=== PATIENT | female | born 1945 | race Caucasian/White ===

== ENCOUNTER → 2017-03-03 | Outpatient (CLI) | payer MEDICARE ==
--- NOTE | 2017-03-04 07:11 | MM ---
Reason for exam: screening (asymptomatic). Last mammogram was performed 1 year ago. History: Patient is postmenopausal. Family history of breast cancer in maternal aunt and premenopausal breast cancer in maternal aunt. Took hormonal contraceptives for 20 years beginning at age 20. Took estrogen for 11 years. Took progesterone for 11 years. Physical Findings: A clinical breast exam by your physician is recommended on an annual basis and results should be correlated with mammographic findings. MG 3D Screening Mammo W/Cad Bilateral CC and MLO view(s) were taken. Prior study comparison: February 24, 2016, bilateral MG 3d screening mammo w/cad. January 27, 2015, bilateral MG screening mammo w CAD. There are scattered fibroglandular densities. Finding: Architectural distortion in the left breast, approximately 10cm from nipple. New finding since February 24, 2016 and January 27, 2015. ASSESSMENT: Incomplete: need additional imaging evaluation, BI-RAD 0 RECOMMENDATION: Special view mammogram of the left breast. If lesion persists on supplemental views, image directed ultrasound is recommended. [facility] will attempt to contact patient to return for supplemental views and ultrasound if indicated.
== END | disposition home or self-care (01) ==
LOC: RADMAMWWP 13:10
PROVIDERS: ATTEND Obstetrics & Gynecology Obstetrics
DX: Z12.31 Encounter for screening mammogram for malignant neoplasm of breast (principal)
CPT/HCPCS: 77063; G0202

== ENCOUNTER → 2017-03-08 | Outpatient (CLI) | payer MEDICARE ==
--- NOTE | 2017-03-08 10:07 | MM ---
Reason for exam: additional evaluation requested from abnormal screening. Last mammogram was performed less than 1 month ago. History: Patient is postmenopausal. Family history of breast cancer in maternal aunt and premenopausal breast cancer in maternal aunt. Took hormonal contraceptives for 20 years beginning at age 20. Took estrogen for 11 years. Took progesterone for 11 years. Physical Findings: Nurse did not find any significant physical abnormalities on exam. MG 3D Work Up W/Cad LT ML, spot compression MLO, and spot compression CC view(s) were taken of the left breast. Prior study comparison: March 03, 2017, bilateral MG 3d screening mammo w/cad. February 24, 2016, bilateral MG 3d screening mammo w/cad. There are scattered fibroglandular densities. There is no discrete abnormality. These results were verbally communicated with the patient and result sheet given to the patient on 03/08/17. ASSESSMENT: Probably benign, BI-RAD 3 RECOMMENDATION: Follow-up diagnostic mammogram of the left breast in 6 months.
== END | disposition home or self-care (01) ==
LOC: RADMAMWWP 08:56
PROVIDERS: ATTEND Obstetrics & Gynecology Obstetrics
DX: R92.8 Other abnormal and inconclusive findings on diagnostic imaging of breast (principal)
CPT/HCPCS: G0206; G0279

== ENCOUNTER → 2017-03-14 | Outpatient (CLI) | payer MEDICARE | END | disposition home or self-care (01) | LOC: RADECHMAIN 12:02 | PROVIDERS: ATTEND Family Medicine | DX: I48.91 Unspecified atrial fibrillation (principal); I48.92 Unspecified atrial flutter; I47.1 Supraventricular tachycardia | CPT/HCPCS: 93225; 93226 ==

== ENCOUNTER → 2017-03-23 | Outpatient (CLI) | payer MEDICARE ==
--- NOTE | 2017-03-23 13:53 | BD ---
EXAMINATION TYPE: MG DEXA axial skeleton. DATE OF EXAM: 03/23/2017 COMPARISON: Previous study dated 01/27/2015. CLINICAL HISTORY: Postmenopausal female Height: 5 FT 6 1/2 IN Weight: 194NO FRAX RISK QUESTIONS: Alcohol (3 or more units per day): NO Family History (Parent hip fracture): NO Glucocorticoids (More than 3mos): YES (Ex: prednisone, prednisolone, methylprednisolone, dexamethasone, and hydrocortisone). History of Fracture in Adulthood: YES Secondary Osteoporosis: 1. Type 1 Diabetes: NO 2. Hyperthyroidism: NO 3. Menopause before 45: YES 4. Malnutrition: NO 5. Chronic liver disease: NO Rheumatoid Arthritis: YES Current Tobacco Use: NO RISK FACTORS HISTORY OF: Family History of Osteoporosis: YES Active: NO Postmenopausal woman: UTERUS REMOVED AGE AGE 43 OVARIES REMOVED SEVERAL YEARS LATER MEDICATIONS: Thyroid Medications: YES Which medication: SYNTHROID How Lon YEARS Additional Medications: WARFARIN, ALLUPURINOL, LEVOTHYROXINE, LYRICA,LIALDA, CALCITEUIL, LOPERAMIDE, FLUTICASONE,TYLENOL, METOPROLOL, OMEPRAZOLE, LEVOFLOXACIN, CLOBETASOL PROPIONATE, KLEFLEX, LEVSIN/SL/ HYOSCYAMINE Additional History: AFTER THE FACT SHE MENTIONED SHE HAS HAD SURG ON LUMBAR 3-4 EXAM MEASUREMENTS: Bone mineral densitometry was performed using the [employer] System. Bone mineral density as measured about the Lumbar spine is: ----- L1-L4(G/cm2): 1.231 T Score Values are as follows: ----- L2: -0.3 ----- L3: 1.6 ----- L4: 0.3 ----- L1-L4: 0.4 SPINE NOT DONE IN THE PAST Bone mineral density about the R hip (g/cm2): 0.737 Bone mineral density about the L hip (g/cm2): 0.690 T Score values are as follows: -----R Neck: -2.2 -----L Neck: -2.5 -----R Total: -2.1 -----L Total: -1.5 Bone mineral density has: Decreased -6.6% since study of: 2014 IMPRESSION: OSTEOPENIA. NOTE: T-SCORE=SD OF THE YOUNG ADULT MEAN.
== END | disposition home or self-care (01) ==
LOC: RADBDWWP 12:35
PROVIDERS: ATTEND Family Medicine
DX: M85.80 Other specified disorders of bone density and structure, unspecified site (principal); Z78.0 Asymptomatic menopausal state
CPT/HCPCS: 77080

== ENCOUNTER → 2018-03-10 | Outpatient (CLI) | payer MEDICARE ==
--- NOTE | 2018-03-13 14:27 | MM ---
Reason for exam: screening (asymptomatic). Last mammogram was performed 6 months ago. History: Patient is postmenopausal. Family history of breast cancer in maternal aunt and premenopausal breast cancer in maternal aunt. Took hormonal contraceptives for 20 years beginning at age 20. Took estrogen for 11 years. Took progesterone for 11 years. Physical Findings: A clinical breast exam by your physician is recommended on an annual basis and results should be correlated with mammographic findings. MG 3D Screening Mammo W/Cad Bilateral CC and MLO view(s) were taken. Prior study comparison: September 14, 2017, left breast MG 3d diag mammo w/cad LT. March 08, 2017, left breast MG 3d work up w/cad LT. The breast tissue is heterogeneously dense. This may lower the sensitivity of mammography. Finding: There are typically benign dystrophic, round, diffuse/scattered and grouped calcifications in both breasts. There is a chronic nodularity in the right breast. ASSESSMENT: Benign, BI-RAD 2 RECOMMENDATION: Routine screening mammogram of both breasts in 1 year.
== END | disposition home or self-care (01) ==
LOC: RADMAMWWP 13:08
PROVIDERS: ATTEND Obstetrics & Gynecology Obstetrics
DX: Z12.31 Encounter for screening mammogram for malignant neoplasm of breast (principal)
CPT/HCPCS: 77063; 77067

== ENCOUNTER → 2018-08-04 | Outpatient (CLI) | payer MEDICARE ==
[2018-08-04 13:23] LABS: HCT 40.4 % (34.0-46.0); HGB 12.8 gm/dL (11.4-16.0); Hypochromasia Slight; MCH 31.7 pg (25.0-35.0); MCHC 31.7 g/dL (31.0-37.0); Macrocytosis Slight; Mean Platelet Volume 8.8; Platelet Count 120 k/uL (150-450); RBC 4.04 m/uL (3.80-5.40); RDW 15.2 % (11.5-15.5); WBC 4.6 k/uL (3.8-10.6)
[2018-08-04 13:31] LABS: Appearance,Urine Clear (Clear); Bilirubin,Urine Negative (Negative); Blood,Urine Negative (Negative); Color,Urine Yellow; Glucose,Urine (UA) Negative (Negative); Ketones,Urine Negative (Negative); Leukocyte Esterase,Urine Small (Negative); Mucus,Urine Rare /hpf; Nitrite,Urine Negative (Negative); PH, Urine 5.5 (5.0-8.0); Protein,Urine Negative (Negative); RBC,Urine 1 /hpf (0-5); Specific Gravity,Urine 1.009 (1.001-1.035); Squamous Epithelial Cell,Urine 2 /hpf (0-4); Transitional Epi Cells,Urine <1 /hpf (0-1); Urobilinogen,Urine <2.0 mg/dL (<2.0); WBC,Urine 1 /hpf (0-5)
[2018-08-04 13:32] LABS: Albumin 3.8 g/dL (3.5-5.0); Calcium 9.2 mg/dL (8.4-10.2); Potassium 4.7 mmol/L (3.5-5.1); Total Bilirubin 0.5 mg/dL (0.2-1.3); Total Protein 6.3 g/dL (6.3-8.2)
[2018-08-04 13:41] LABS: INR 1.8 (<1.2); Partial Thromboplastin Time 30.2 sec (22.0-30.0); Prothrombin Time 16.8 sec (9.0-12.0)
== END | disposition home or self-care (01) ==
LOC: LABPAT 12:14
PROVIDERS: ATTEND Orthopaedic Surgery
DX: Z01.812 Encounter for preprocedural laboratory examination (principal); Z51.81 Encounter for therapeutic drug level monitoring; Z79.01 Long term (current) use of anticoagulants
CPT/HCPCS: 36415; 80053; 81001; 85027; 85610; 85730; 87070

== ENCOUNTER 2018-08-08 10:09 | Inpatient (IN) | payer MEDICARE ==
[2018-08-01 11:53] VITALS: BMI 30.4
[~2018-08-08 10:09] MED LIST: ACETAMINOPHEN TAB 500 MG TAB PO ONE; DEXAMETHASONE SOD PHOSPHATE 10 MG/ML 1 ML VIAL IV ONE; LACTATED RINGERS 1,000 ML IV SCH; MELOXICAM 7.5 MG TAB PO ONE; MIDAZOLAM 2 MG/2 ML VIAL IV PRN; ONDANSETRON 4 MG/2 ML VIAL IVP ONE; ROPIVACAINE 246.25 MG, EPINEPHrine 0.5 MG, KETOROLAC 30 MG, cloNIDine HCL/PF 80 MCG, WA... MISCELLANE ONE; TRANEXAMIC ACID 1,000 MG in SODIUM CHLORIDE 0.9% 50 ML IVPB ONE; fentaNYL (PF) 50 MCG/ML 2 ML AMP IV PRN
[2018-08-08] MEDS ORDERED: LIDOCAINE 1% 20 ML VIAL (10MG/ML) FOR IV START INTRADERMA ONE (12:22)
[2018-08-08 13:21] LABS: HGB 12.8 gm/dL (11.4-16.0); Hypochromasia Slight; MCH 31.5 pg (25.0-35.0); MCHC 31.9 g/dL (31.0-37.0); MCV 98.8 fL (80.0-100.0); Macrocytosis Slight; Platelet Count 102 k/uL (150-450); RBC 4.05 m/uL (3.80-5.40); RDW 15.3 % (11.5-15.5); WBC 3.2 k/uL (3.8-10.6)
[2018-08-08] MEDS ORDERED: HYDROcodone/APAP 5-325MG 1 EACH TAB PO PRN (13:37)
[2018-08-08] MEDS ORDERED: BISACODYL 10 MG SUPP RECTAL PRN (13:37)
[2018-08-08] MEDS ORDERED: NALOXONE 0.4 MG/ML 1 ML VIAL IV PRN (13:37)
[2018-08-08] MEDS ORDERED: NA PHOS,M-B/NA PHOS,DI-BA 133 ML ENEMA RECTAL PRN (13:37)
[2018-08-08] MEDS ORDERED: ONDANSETRON 4 MG/2 ML VIAL IVP PRN (13:37)
[2018-08-08] MEDS ORDERED: DIAZEPAM 5 MG TAB PO PRN (13:37)
[2018-08-08] MEDS ORDERED: MAGNESIUM HYDROXIDE 2,400 MG/10 ML CUP PO PRN (13:37)
[2018-08-08] MEDS ORDERED: HYDROmorphone 1 MG/ML 1 ML SYRINGE IVP PRN ×3 (13:37)
[2018-08-08 13:49] LABS: INR 1.3 (<1.2)
[2018-08-08] MEDS: ceFAZolin IN SWFI 2 GM/20 ML SYRINGE IVP ONE ×2 (14:11→14:47)
[2018-08-08] MEDS ORDERED: fentaNYL (PF) 50 MCG/ML 2 ML AMP ONE (14:11)
[2018-08-08] MEDS ORDERED: SODIUM CHLORIDE 0.9% 100 ML BAG ONE (14:11)
[2018-08-08] MEDS ORDERED: PROPOFOL 10 MG/ML 20 ML VIAL IV ONE (14:11)
[2018-08-08] MEDS ORDERED: TRANEXAMIC ACID 1,000 MG/10 ML VIAL ONE (14:11)
[2018-08-08] MEDS ORDERED: ROPIVACAINE 1,100 MG, SODIUM CHLORIDE 0.9% 500 ML 330 ML MISCELLANE PRN ×2 (14:28)
--- NOTE | 2018-08-08 14:30 | P.ONQ ---
Anesthesiology Proc Note - PNB - Peripheral Nerve Block Performed Left Adductor Canal Single Time Out Performed: Yes Procedure Start Time: 13:13 Indication: Acute Post-Operative Pain, Analgesia Specifically requested for management of pain by DrFatou: Prakash Villeda Sedation Type: Sedate with meaningful contact maintained Preparation: Sterile Prep Position: Supine Catheter Depth at Skin (cm): 7 Catheter: Indwelling Needle Types: Other (see comment) (Pajunk) Needle Size: 100mm (4") Needle Gauge: 18 Technique: Ultrasound Injectate: 0.5% Ropivacaine (see comment for volume) (20 cc) Blood Aspirated: No Pain Paresthesia on Injection Noted: No Resistance on Injection: Normal Events: Uneventful and Well Tolerated
[2018-08-08] MEDS ORDERED: ceFAZolin 3,000 MG in SODIUM CHLORIDE 0.9% IRRIGATIO 3,000 ML IRRIGATION ONE (14:54)
--- NOTE | 2018-08-08 15:40 | P.OP ---
Date of Procedure: 08/08/18 Preoperative Diagnosis: Severe osteoarthritis left knee Postoperative Diagnosis: Severe osteoarthritis left knee Procedure(s) Performed: Left total knee arthroplasty Implants: Rivas and Nephew Journey II Oxinium Bi-cruciate stabilized femoral component size 5, left Rivas [employer] Nephew Journey left nonporous tibial baseplate size 4 Rivas [employer] Nephew Journey II, XLPE constrained articular insert, size 10 mm, Size 3 -4 left Rivas [employer] Nephew Journey BCS resurfacing round patellar component, 29 mm All components were cemented using Palacos R bone cement.. The articulation is Oxinium on polyethylene. Anesthesia: spinal Surgeon: Prakash Villeda Human Resources Office Assistant #1: Olesya Crowley Human Resources Office Assistant #2: Melanie Song Estimated Blood Loss (ml): 25 Pathology: other (Bone and cartilage) Condition: stable Disposition: PACU Indications for Procedure: After failure of conservative treatment we discussed the surgical and nonsurgical treatment options at length. Patient wishes to proceed with a total knee arthroplasty. Complications specific to this procedure were discussed at length, including but not limited to infection, bleeding, stiffness , and nerve injury. Patient is aware of all these complications and informed consent was obtained Operative Findings: The operative findings are consistent with severe osteoarthritis the left knee Description of Procedure: Patient was seen in the preoperative area consent was reviewed and operative site was marked with a skin marker. Patient was then brought to the operating room and given preoperative antibiotics intravenously. A spinal anesthetic was administered by the anesthesia department. A tourniquet was placed on the upper thigh and the lower extremity was prepped and draped in usual sterile fashion. A gram of transexamic acid was given. A universal timeout was then performed which confirmed the patient's name, surgical site, ALLERGIES, and consent. The lower extremity was then exsanguinated and tourniquet was inflated to 250 mmHg. A standard and anterior midline approach to the knee was performed. The skin and subcutaneous tissue was dissected down to the patellar tendon. A medial parapatellar arthrotomy was then performed. The knee was then extended, the patellar was everted, and the knee was again flexed. Anterior horns of both menisci were excised, and a minimal medial release was performed because of the valgus deformity of the knee.. On gross visual inspection, there was complete loss of articular cartilage in all 3 compartments of the knee. There was also significant cartilage damage in the lateral compartment. There were multiple periarticular osteophytes which were then removed with a Ronguer. The femoral canal was then opened with the appropriate drill, and the intramedullary femoral cutting guide was then placed and set for 5 of valgus. The distal femoral cutting block was then pinned in place, and the distal femur was then cut. The cutting block was then removed and the cut was checked for flatness. Next, the sizing guide was then placed and set for 3 external rotation based off of the epicondylar axis and Whitesides line. After the femur was sized, the appropriate 4-in-1 cutting block was then pinned in place. The anterior condyles were cut without notching. The posterior and chamfer cuts were performed while protecting the collateral ligaments. The cutting block was then removed. Attention was then directed to the tibia. The remaining ACL was removed with a Ronguer, and the tibia was then gently subluxed forward with a large bent knee retractor. Any remaining menisci was excised. The posterior lateral corner was cauterized in order to cauterize the lateral geniculate artery. The extra medullary tibial cutting guide was then placed, set for the appropriate rotation , slope, and depth of resection. The proximal tibia cutting guide was then pinned in place. Proximal tibia was then cut and sized. The femoral trial was then placed. The box cutting guide was placed and then using the appropriate reamer, the bone was reamed for the box. Then the box osteotome was used to finish the reaming. Next trials were then placed with the appropriate-sized insert. The knee was able to fully extend and flex to 130 and was stable throughout all range of motion. The knee was then extended, patella everted. Patella was then measured, and then using an osteotomy guide, the patella was cut at the appropriate level. The patella was then measured and drilled and the patella trial was then placed. The knee was then taken through range of motion with the patella trial and the patella tracked normally. The knee was then extended patella trial was then removed and the patella was everted. Knee was then flexed and lug holes were drilled through the femoral trial and the femoral trial was then removed. The tibial was then exposed, and the tibial broach guide was then pinned in place after it was set for the appropriate rotation to allow for the most coverage without overhang. The tibia was then broached. The cut surfaces of bone were then irrigated with pulsatile lavage. The posterior structures were injected with the ropivacaine solution. The components were then opened, the cement was mixed, and the components were then cemented in place. The cement was allowed to harden with the knee in full extension. While the cement was hardening, the remaining soft tissues were injected with the ropivacaine solution. After the cemented hardened. The tourniquet was released, and hemostasis was obtained. A second gram of transexamic acid was given. The knee was again irrigated. The knee was again taken through range of motion and found to be stable throughout all range of motion of 0-130, and the patella tracked normally. The fascia was then closed with #2 strata fix suture. The subcutaneous tissue was closed with 3-0 Vicryl and 3-0 strata fix. Dermabond glue was used for the skin, and the patient was placed in a sterile silver dressing. Patient was then transferred to recovery room in stable condition. The stylist assistant MARISELA Ball was required due the complexity surgery and the need for a skilled surgical forceps fabricator. She assisted in positioning, draping, retraction, and closure of the woundclosure of the wound.
[2018-08-08 16:14] LABS: Glucose,Whole Blood 120 mg/dL (75-99)
[2018-08-08] MEDS: SODIUM CHLORIDE 0.9% 1,000 ML IV SCH (16:35)
--- NOTE | 2018-08-08 16:43 | XR ---
Limited left knee HISTORY: Status post left knee arthroplasty 2 views of the left knee Patient is status post left knee arthroplasty. There is anatomic alignment. Lucency present in the so ft tissues compatible with postop state. IMPRESSION: Orthopedic follow-up.
[2018-08-08] MEDS ORDERED: PANTOPRAZOLE 40 MG TABLET PO PRN (16:59)
[2018-08-08] MEDS ORDERED: FLUTICASONE 50MCG/SPRAY NASAL 16GM NASAL PRN (16:59)
[2018-08-08] MEDS: INSULIN ASPART 100 UNIT/ML 1 ML 10 ML VIAL SQ SCH ×2 (17:43→20:37)
[2018-08-08] MEDS ORDERED: WARFARIN 5 MG TAB PO ONE (18:00)
[2018-08-08 20:08] LABS: Glucose,Whole Blood 177 mg/dL (75-99)
[2018-08-08] MEDS: METOPROLOL TARTRATE 25 MG TAB PO SCH (20:36)
[2018-08-08] MEDS: PREGABALIN 100 MG CAP PO SCH (20:37)
[2018-08-08] MEDS: SENNOSIDES-DOCUSATE SODIUM 1 EACH TAB PO SCH (20:37)
[2018-08-08] MEDS: ALLOPURINOL 100 MG TAB PO SCH (20:37)
[2018-08-08] MEDS: ASPIRIN 81 MG PO SCH (20:37)
[2018-08-08] MEDS: ceFAZolin IN SWFI 2 GM/20 ML SYRINGE IVP SCH (20:41)
[2018-08-09] MEDS: SODIUM CHLORIDE 0.9% 1,000 ML IV SCH (04:26)
[2018-08-09] MEDS: LEVOTHYROXINE 88 MCG TAB PO SCH (05:30)
[2018-08-09] MEDS: ceFAZolin IN SWFI 2 GM/20 ML SYRINGE IVP SCH (05:30)
[2018-08-09 07:14] LABS: Glucose,Whole Blood 128 mg/dL (75-99)
[2018-08-09] MEDS: INSULIN ASPART 100 UNIT/ML 1 ML 10 ML VIAL SQ SCH ×4 (07:56→20:28)
[2018-08-09 08:16] LABS: Basophils % (A) 0 %; Eosinophils % (A) 0 %; HCT 35.2 % (34.0-46.0); Hypochromasia Moderate; Lymphocytes # (A) 0.5 k/uL (1.0-4.8); Lymphocytes % (A) 6 %; MCH 31.3 pg (25.0-35.0); MCHC 31.3 g/dL (31.0-37.0); Macrocytosis Slight; Mean Platelet Volume 9.1; Monocytes # (A) 0.4 k/uL (0-1.0); Monocytes % (A) 5 %; Neutrophils # (A) 7.5 k/uL (1.3-7.7); Neutrophils % (A) 88 %; Platelet Count 104 k/uL (150-450); RBC 3.52 m/uL (3.80-5.40); WBC 8.5 k/uL (3.8-10.6)
[2018-08-09 08:24] LABS: INR 1.3 (<1.2); Prothrombin Time 12.5 sec (9.0-12.0)
[2018-08-09] MEDS: PREGABALIN 100 MG CAP PO SCH ×2 (08:45→20:28)
--- NOTE | 2018-08-09 08:45 | P.PN ---
Subjective Progress Note Date: 08/09/18 This is a 72-year-old female is status post left total knee arthroplasty. This is postoperative day #1. Patient is seen and evaluated at bedside with Dr. Prakash Villeda. Patient states that her pain is well controlled. Patient denies any fever/chills, numbness, weakness, tingling, abdominal pain, shortness of breath or chest pain. Objective - Vital Signs Vital signs: Vital Signs Temp 97.3 F L 08/09/18 07:00 Pulse 71 08/09/18 07:00 Resp 16 08/09/18 07:00 BP 96/63 08/09/18 07:00 Pulse Ox 95 08/09/18 07:00 Intake & Output 08/08/18 08/09/18 08/09/18 18:59 06:59 18:59 Intake Total 1001 1729 Output Total 25 700 Balance 976 1029 Weight 87.997 kg Intake: IV 1001 Intake, IV Titration 649 Amount Sodium Chloride 0.9% 1, 649 000 ml @ 65 mls/hr IV . [id number] [facility] Rx#:[id number] Oral 1080 Output: Urine 700 Straight 500 Estimated Blood Loss 25 Other: # Voids 1 - Exam Vital signs are stable. Patient is in no acute distress and is alert and oriented 3. Calf is soft and nontender to palpation. Dressing is clean, dry, and intact. Patient has full foot and ankle motion without pain or difficulty. Neurovascular status and circulatory status are intact. - Labs CBC & Chem 7: 08/09/18 07:32 Labs: Abnormal Lab Results - Last 24 Hours (Table) 08/08/18 08/08/18 08/08/18 Range/Units 12:35 12:35 16:10 WBC 3.2 L (3.8-10.6) k/uL RBC (3.80-5.40) m/uL Hgb (11.4-16.0) gm/dL Plt Count 102 L (150-450) k/uL Lymphocytes # (1.0-4.8) k/uL PT (9.0-12.0) sec INR 1.3 H (<1.2) POC Glucose (mg/dL) 120 H (75-99) mg/dL 08/08/18 08/09/18 08/09/18 Range/Units 19:56 07:11 07:32 WBC (3.8-10.6) k/uL RBC 3.52 L (3.80-5.40) m/uL Hgb 11.0 L (11.4-16.0) gm/dL Plt Count 104 L (150-450) k/uL Lymphocytes # 0.5 L (1.0-4.8) k/uL PT (9.0-12.0) sec INR (<1.2) POC Glucose (mg/dL) 177 H 128 H (75-99) mg/dL 08/09/18 Range/Units 07:32 WBC (3.8-10.6) k/uL RBC (3.80-5.40) m/uL Hgb (11.4-16.0) gm/dL Plt Count (150-450) k/uL Lymphocytes # (1.0-4.8) k/uL PT 12.5 H (9.0-12.0) sec INR 1.3 H (<1.2) POC Glucose (mg/dL) (75-99) mg/dL Assessment and Plan (1) S/P total knee arthroplasty Current Visit: Yes Status: Acute Code(s): Z96.659 - PRESENCE OF UNSPECIFIED ARTIFICIAL KNEE JOINT SNOMED Code(s): 3832280918564 (2) Primary osteoarthritis of left knee Current Visit: Yes Status: Acute Code(s): M17.12 - UNILATERAL PRIMARY OSTEOARTHRITIS, LEFT KNEE SNOMED Code(s): 890591728175774 Plan: #1 Continue with routine postoperative care, leave dressing in place for ten days. #2 Anticoagulation with Coumadin. #3 Physical therapy today. #4 Appreciate input from medicine. #5 Anticipate discharge to rehab on Tuesday.
[2018-08-09] MEDS: MELOXICAM 7.5 MG TAB PO SCH (08:46)
[2018-08-09] MEDS: MULTIVITAMINS, THERA 1 EACH TAB PO SCH (08:49)
[2018-08-09] MEDS: HYDROcodone/APAP 5-325MG 1 EACH TAB PO PRN ×3 (08:49→18:07)
[2018-08-09] MEDS: CALCIUM CARB-VIT D 500MG-200UN 1 EACH TAB PO SCH (08:49)
[2018-08-09] MEDS: METOPROLOL TARTRATE 25 MG TAB PO SCH (08:49)
[2018-08-09] MEDS: ALLOPURINOL 100 MG TAB PO SCH ×3 (08:49→20:28)
--- NOTE | 2018-08-09 12:05 | P.CONS ---
History of Present Illness - History of Present Illness 72-year-old female is post left total knee arthroplasty. 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 Aortic regurgitation. History of Any Multi-Drug Resistant Organisms: None Reported Past Surgical History: Cholecystectomy, Heart Catheterization, Hernia Repair, Hysterectomy, Orthopedic Surgery, Tubal Ligation Additional Past Surgical History / Comment(s): Trans abdominal vaginal wall suspension. "Dr. Abdi Riggs fixed a hole in my heart". Cardioversion. L3-4 lumber laminectomy. Past Anesthesia/Blood Transfusion Reactions: Motion Sickness, Postoperative Nausea & Vomiting (PONV) Additional Past Anesthesia/Blood Transfusion Reaction / Comm: has letter from "post polio dr with anesthesia recommendations" pt to bring with her. "takes long time to come out of anesthesia" Past Psychological History: Depression Smoking Status: Never smoker Past Alcohol Use History: Occasional Past Drug Use History: None Reported - Past Family History Father Family Medical History: Myocardial Infarction (OR) Mother Family Medical History: Cancer Medications and Allergies Home Medications Medication Instructions Recorded Confirmed Type Aspirin 81 mg PO HS 04/08/14 08/08/18 History Calcium Citrate/Vitamin D3 1 tab PO DAILY 04/08/14 08/08/18 History [Calcium Citrate - Vit D3 Tab] Levothyroxine Sodium [Synthroid] 88 mcg PO DAILY 04/08/14 08/08/18 History Loperamide [Imodium] 4 mg PO DAILY 04/08/14 08/08/18 History Mesalamine [Lialda] 1.2 gm PO BID 04/08/14 08/08/18 History Mometasone Furoate [Nasonex] 2 spray NASAL DAILY PRN 04/08/14 08/08/18 History Multivitamins, Thera [Multivitamin] 1 tab PO DAILY 04/08/14 08/08/18 History Acetaminophen [Tylenol Extra 500 mg PO DAILY PRN 08/01/18 08/08/18 History Strength] Allopurinol [Zyloprim] 100 mg PO TID 08/01/18 08/08/18 History L.acidoph,Paracasei, B.lactis 1 cap PO DAILY 08/01/18 08/08/18 History [Probiotic] Metoprolol Tartrate [Lopressor] 75 mg PO BID 08/01/18 08/08/18 History Omeprazole [PriLOSEC] 20 mg PO AC-BRKFST PRN 08/01/18 08/08/18 History Pregabalin [Lyrica] 200 mg PO BID 08/08/18 08/08/18 History Warfarin [Coumadin] 2 mg PO MOTH 08/08/18 08/08/18 History Warfarin [Coumadin] 3 mg PO SUTUWEFRSA 08/08/18 08/08/18 History Allergies Allergy/AdvReac Type Severity Reaction Status Date / Time nitrofurantoin Allergy Severe Rash/Hives Verified 08/08/18 16:06 [From Macrobid] nitrofurantoin Allergy Severe Rash/Hives Verified 08/08/18 16:06 macrocrystalline [From Macrobid] sulfamethoxazole Allergy Severe Rash/Hives Verified 08/08/18 16:06 [From Bactrim] trimethoprim [From Bactrim] Allergy Severe Rash/Hives Verified 08/08/18 16:06 hydromorphone HCl AdvReac Severe Nausea & Verified 08/08/18 16:06 [From Dilaudid] Vomiting Physical Exam Vitals: Vital Signs Temp Pulse Pulse Resp BP Pulse Ox 08/09/18 07:00 97.3 F L 71 16 96/63 95 08/09/18 04:01 97.9 F 84 15 95/61 97 08/08/18 19:57 97.4 F L 86 18 123/79 98 08/08/18 19:00 88 125/87 08/08/18 18:45 89 141/88 08/08/18 18:30 88 127/79 08/08/18 18:15 82 137/84 08/08/18 18:00 73 138/83 08/08/18 17:45 81 147/84 08/08/18 17:30 69 134/82 08/08/18 17:15 80 159/90 08/08/18 17:00 97.7 F 74 16 147/91 94 L 08/08/18 16:44 70 16 117/78 99 08/08/18 16:32 73 16 121/66 99 08/08/18 16:15 67 16 134/61 100 08/08/18 16:02 98.0 F 78 16 131/65 94 L 08/08/18 13:30 68 106/55 97 Intake and Output 08/08/18 08/09/18 08/09/18 22:59 06:59 14:59 Intake Total 917 962 Output Total 700 Balance 917 262 Intake: IV 150 Intake, IV Titration 227 422 Amount Sodium Chloride 0.9% 1, 227 422 000 ml @ 65 mls/hr IV . [id number] [facility] Rx#:[id number] Oral 540 540 Output: Urine 700 Straight 500 Other: # Voids 1 Weight 87.997 kg - Constitutional General appearance: mild distress, obese - EENT Eyes: PERRLA Ears: bilateral: normal - Neck Neck: normal ROM - Respiratory Respiratory: bilateral: CTA - Cardiovascular Rhythm: irregularly irregular - Gastrointestinal General gastrointestinal: soft - Integumentary Integumentary: normal - Neurologic Neurologic: CNII-XII intact - Psychiatric Psychiatric: A&O x's 3, appropriate affect, intact judgment & insight Results CBC & Chem 7: 08/09/18 07:32 Labs: Abnormal Lab Results - Last 24 Hours (Table) 08/08/18 08/08/18 08/08/18 Range/Units 12:35 12:35 16:10 WBC 3.2 L (3.8-10.6) k/uL RBC (3.80-5.40) m/uL Hgb (11.4-16.0) gm/dL Plt Count 102 L (150-450) k/uL Lymphocytes # (1.0-4.8) k/uL PT (9.0-12.0) sec INR 1.3 H (<1.2) POC Glucose (mg/dL) 120 H (75-99) mg/dL 08/08/18 08/09/18 08/09/18 Range/Units 19:56 07:11 07:32 WBC (3.8-10.6) k/uL RBC 3.52 L (3.80-5.40) m/uL Hgb 11.0 L (11.4-16.0) gm/dL Plt Count 104 L (150-450) k/uL Lymphocytes # 0.5 L (1.0-4.8) k/uL PT (9.0-12.0) sec INR (<1.2) POC Glucose (mg/dL) 177 H 128 H (75-99) mg/dL 08/09/18 Range/Units 07:32 WBC (3.8-10.6) k/uL RBC (3.80-5.40) m/uL Hgb (11.4-16.0) gm/dL Plt Count (150-450) k/uL Lymphocytes # (1.0-4.8) k/uL PT 12.5 H (9.0-12.0) sec INR 1.3 H (<1.2) POC Glucose (mg/dL) (75-99) mg/dL Assessment and Plan Plan: Assessment Osteoarthritis left knee post total left knee arthroplasty History of hypertension Diabetes type 2 diet controlled Hypothyroidism Polio syndrome Chronic atrial fibrillation Asthma Sleep apnea Rheumatoid arthritis Plan We'll monitor patient's blood pressure and blood glucose
[2018-08-09 12:11] LABS: Glucose,Whole Blood 127 mg/dL (75-99)
--- NOTE | 2018-08-09 12:51 | P.PN ---
Progress Note - Text Anesthesia POD 1. Patient is status post left TKR under spinal anesthesia with a left adductor canal catheter placed for postoperative pain relief. With ropivacaine 0.2% running at 8 cc's per hour, the patient's VAS is (0, 4). Catheter site is clean dry and intact.
[2018-08-09 17:24] LABS: Glucose,Whole Blood 127 mg/dL (75-99)
[2018-08-09] MEDS ORDERED: WARFARIN 5 MG TAB PO ONE (18:00)
[2018-08-09] MEDS: hydrOXYzine PAMOATE 25 MG CAP PO PRN (18:08)
[2018-08-09 20:06] LABS: Glucose,Whole Blood 140 mg/dL (75-99)
[2018-08-09] MEDS: ASPIRIN 81 MG PO SCH (20:28)
[2018-08-09] MEDS: SENNOSIDES-DOCUSATE SODIUM 1 EACH TAB PO SCH (20:28)
[2018-08-10] MEDS: hydrOXYzine PAMOATE 25 MG CAP PO PRN (00:26)
[2018-08-10] MEDS: HYDROcodone/APAP 5-325MG 1 EACH TAB PO PRN ×3 (00:27→22:13)
[2018-08-10 03:32] LABS: Hemoglobin A1C 5.7 % (4.0-6.0)
[2018-08-10] MEDS: METOPROLOL TARTRATE 25 MG TAB PO SCH ×3 (04:38→20:08)
[2018-08-10] MEDS: LEVOTHYROXINE 88 MCG TAB PO SCH (05:30)
[2018-08-10 07:34] LABS: Glucose,Whole Blood 97 mg/dL (75-99)
--- NOTE | 2018-08-10 08:21 | P.PN ---
Subjective Progress Note Date: 08/10/18 This is a 72-year-old female who is status post left total knee arthroplasty. This is postoperative day #2. Patient states that her pain is controlled and she has been up and walking with physical therapy. Patient denies any fever/ chills, numbness, weakness, tingling, abdominal pain, shortness of breath or chest pain. Objective - Vital Signs Vital signs: Vital Signs Temp 98.0 F 08/10/18 07:00 Pulse 77 08/10/18 07:00 Resp 16 08/10/18 07:00 BP 91/63 08/10/18 07:00 Pulse Ox 97 08/10/18 07:00 Intake & Output 08/09/18 08/10/18 08/10/18 18:59 06:59 18:59 Intake Total 540 Output Total 550 Balance -550 540 Intake: Oral 540 Output: Urine 550 Other: Voiding Method Toilet Bedside Commode # Voids 1 # Bowel Movements 2 - Exam Vital signs are stable. Patient is in no acute distress and is alert and oriented 3. Calf is soft and nontender to palpation. Dressing is clean, dry, and intact. Patient has full foot and ankle motion without pain or difficulty. Neurovascular status and circulatory status are intact. - Labs CBC & Chem 7: 08/09/18 07:32 Labs: Abnormal Lab Results - Last 24 Hours (Table) 08/09/18 08/09/18 08/09/18 Range/Units 07:32 07:32 11:59 RBC 3.52 L (3.80-5.40) m/uL Hgb 11.0 L (11.4-16.0) gm/dL Plt Count 104 L (150-450) k/uL Lymphocytes # 0.5 L (1.0-4.8) k/uL PT 12.5 H (9.0-12.0) sec INR 1.3 H (<1.2) POC Glucose (mg/dL) 127 H (75-99) mg/dL 08/09/18 08/09/18 Range/Units 17:12 19:55 RBC (3.80-5.40) m/uL Hgb (11.4-16.0) gm/dL Plt Count (150-450) k/uL Lymphocytes # (1.0-4.8) k/uL PT (9.0-12.0) sec INR (<1.2) POC Glucose (mg/dL) 127 H 140 H (75-99) mg/dL Assessment and Plan (1) S/P total knee arthroplasty Current Visit: Yes Status: Acute Code(s): Z96.659 - PRESENCE OF UNSPECIFIED ARTIFICIAL KNEE JOINT SNOMED Code(s): 0947214771626 (2) Primary osteoarthritis of left knee Current Visit: Yes Status: Acute Code(s): M17.12 - UNILATERAL PRIMARY OSTEOARTHRITIS, LEFT KNEE SNOMED Code(s): 640839179420242 Plan: #1 Continue with routine postoperative care, leave dressing in place for ten days. #2 Anticoagulation with Coumadin. #3 Physical therapy today. #4 Appreciate input from medicine. #5 Anticipate discharge to rehab on Tuesday.
[2018-08-10] MEDS: INSULIN ASPART 100 UNIT/ML 1 ML 10 ML VIAL SQ SCH ×4 (08:41→22:12)
[2018-08-10 09:08] LABS: INR 2.3 (<1.2); Prothrombin Time 20.5 sec (9.0-12.0)
--- NOTE | 2018-08-10 09:14 | P.PN ---
Progress Note - Text Progress Note Date: 08/10/18 72-year-old female status post left total knee arthroplasty plasty postop day #2 , abductor canal catheter day #3. No motor sensory deficits appreciated. VAS is a 2-5 out of 10 with rest and movement. Plan is to continue with current settings, patient may be discharged this afternoon.
[2018-08-10] MEDS: ALLOPURINOL 100 MG TAB PO SCH ×3 (09:52→22:12)
[2018-08-10] MEDS: CALCIUM CARB-VIT D 500MG-200UN 1 EACH TAB PO SCH (09:53)
[2018-08-10] MEDS: MELOXICAM 7.5 MG TAB PO SCH (09:53)
[2018-08-10] MEDS: PREGABALIN 100 MG CAP PO SCH ×2 (09:54→20:08)
[2018-08-10] MEDS: MULTIVITAMINS, THERA 1 EACH TAB PO SCH (09:54)
--- NOTE | 2018-08-10 11:11 | P.PN ---
Subjective Patient up ambulating with walker. Complains of increasing knee pain. Also complains of exacerbation of colitis requesting Imodium Objective - Vital Signs Vital signs: Vital Signs Temp 98.0 F 08/10/18 07:00 Pulse 77 08/10/18 07:00 Resp 16 08/10/18 07:00 BP 117/64 08/10/18 10:19 Pulse Ox 97 08/10/18 07:00 Intake & Output 08/09/18 08/10/18 08/10/18 18:59 06:59 18:59 Intake Total 540 Output Total 550 Balance -550 540 Intake: Oral 540 Output: Urine 550 Other: Voiding Method Toilet Bedside Commode # Voids 1 # Bowel Movements 2 - Constitutional General appearance: Present: mild distress - EENT Eyes: Present: PERRLA Ears: bilateral: normal - Respiratory Respiratory: bilateral: CTA - Cardiovascular Rhythm: irregularly irregular - Gastrointestinal General gastrointestinal: Present: soft - Integumentary Integumentary: Present: normal - Neurologic Neurologic: Present: CNII-XII intact - Musculoskeletal Musculoskeletal Comment(s): Ambulating well with walker - Psychiatric Psychiatric: Present: A&O x's 3, appropriate affect, intact judgment & insight - Labs CBC & Chem 7: 08/09/18 07:32 Labs: Abnormal Lab Results - Last 24 Hours (Table) 08/09/18 08/09/18 08/09/18 Range/Units 11:59 17:12 19:55 PT (9.0-12.0) sec INR (<1.2) POC Glucose (mg/dL) 127 H 127 H 140 H (75-99) mg/dL 08/10/18 Range/Units 08:01 PT 20.5 H (9.0-12.0) sec INR 2.3 H (<1.2) POC Glucose (mg/dL) (75-99) mg/dL Assessment and Plan Plan: Assessment Left knee osteoarthritis with post left total knee arthroplasty History of hypertension Diabetes type 2 diet-controlled Hypothyroidism Colitis Polio syndrome Atrial fibrillation INR therapeutic Sleep apnea Rheumatoid arthritis Asthma Plan Imodium ordered for colitis We'll continue to monitor patient blood pressure ,blood glucose
[2018-08-10 11:50] LABS: Glucose,Whole Blood 93 mg/dL (75-99)
[2018-08-10 17:22] LABS: Glucose,Whole Blood 124 mg/dL (75-99)
[2018-08-10] MEDS ORDERED: WARFARIN 2 MG TAB PO ONE (18:00)
[2018-08-10] MEDS: SENNOSIDES-DOCUSATE SODIUM 1 EACH TAB PO SCH (20:05)
[2018-08-10] MEDS: ASPIRIN 81 MG PO SCH (20:08)
[2018-08-10 20:35] LABS: Glucose,Whole Blood 157 mg/dL (75-99)
[2018-08-11] MEDS: LEVOTHYROXINE 88 MCG TAB PO SCH (05:49)
[2018-08-11] MEDS: HYDROcodone/APAP 5-325MG 1 EACH TAB PO PRN ×2 (06:21→17:39)
[2018-08-11] MEDS: INSULIN ASPART 100 UNIT/ML 1 ML 10 ML VIAL SQ SCH ×4 (06:57→21:45)
[2018-08-11 07:01] LABS: Glucose,Whole Blood 108 mg/dL (75-99)
--- NOTE | 2018-08-11 08:16 | P.DS ---
Providers Date of admission: 08/08/18 11:38 Expected date of discharge: 08/11/18 Attending physician: Prakash Villeda Consults: 08/08/18 13:37 Consult Physician Routine Consulting Provider: Johnny To Consult Reason/Comments: medical management Do you want consulting provider notified?: Yes Primary care physician: Johnny Ma Yousuf - Discharge Diagnosis(es) (1) S/P total knee arthroplasty Current Visit: Yes Status: Acute (2) Primary osteoarthritis of left knee Current Visit: Yes Status: Acute Hospital Course: This is a 72-year-old female with known history of degenerative arthritis of the left knee. The patient presents for evaluation. After discussion and consideration patient elects to proceed with total knee arthroplasty. The patient is seen preoperatively by Dr. Villeda and medically cleared for surgery by their primary care physician. Patient is admitted to [facility] on 08/08/2018 for total knee arthroplasty. The procedures performed without complication or sequelae. The patient is doing well postoperatively. Labs and vital signs are stable on day of discharge. On day of discharge patient's knee incision is healing well. There is minimal erythema. There is no drainage noted at this time. There is minimal soft tissue swelling to the knee. Patient has full foot and ankle motion without difficulty or pain. Neurovascular status to the left lower extremity is intact. Patient is discharged to rehab in good condition. Please see med rec for accurate list of home medications. Plan - Discharge Summary Discharge Rx Participant: No New Discharge Prescriptions: New HYDROcodone/APAP 5-325MG [[place] 5-325] 1 - 2 tab PO Q6H PRN #56 tab PRN Reason: Pain Sennosides [Senokot] 1 tab PO BID #60 tablet No Action Multivitamins, Thera [Multivitamin] 1 tab PO DAILY Calcium Citrate/Vitamin D3 [Calcium Citrate - Vit D3 Tab] 1 tab PO DAILY Loperamide [Imodium] 4 mg PO DAILY Aspirin 81 mg PO HS Mometasone Furoate [Nasonex] 2 spray NASAL DAILY PRN PRN Reason: Nasal Congestion Mesalamine [Lialda] 1.2 gm PO BID Levothyroxine Sodium [Synthroid] 88 mcg PO DAILY L.acidoph,Paracasei, B.lactis [Probiotic] 1 cap PO DAILY Acetaminophen [Tylenol Extra Strength] 500 mg PO DAILY PRN PRN Reason: Pain Omeprazole [PriLOSEC] 20 mg PO AC-BRKFST PRN PRN Reason: Dyspepsia Metoprolol Tartrate [Lopressor] 75 mg PO BID Allopurinol [Zyloprim] 100 mg PO TID Pregabalin [Lyrica] 200 mg PO BID Warfarin [Coumadin] 3 mg PO SUTUWEFRSA Warfarin [Coumadin] 2 mg PO MOTH Discharge Medication List Aspirin 81 mg PO HS 04/08/14 [History] Calcium Citrate/Vitamin D3 [Calcium Citrate - Vit D3 Tab] 1 tab PO DAILY [History] Levothyroxine Sodium [Synthroid] 88 mcg PO DAILY 04/08/14 [History] Loperamide [Imodium] 4 mg PO DAILY 04/08/14 [History] Mesalamine [Lialda] 1.2 gm PO BID 04/08/14 [History] Mometasone Furoate [Nasonex] 2 spray NASAL DAILY PRN 04/08/14 [History] Multivitamins, Thera [Multivitamin] 1 tab PO DAILY 04/08/14 [History] Acetaminophen [Tylenol Extra Strength] 500 mg PO DAILY PRN 08/01/18 [History] Allopurinol [Zyloprim] 100 mg PO TID 08/01/18 [History] L.acidoph,Paracasei, B.lactis [Probiotic] 1 cap PO DAILY 08/01/18 [History] Metoprolol Tartrate [Lopressor] 75 mg PO BID 08/01/18 [History] Omeprazole [PriLOSEC] 20 mg PO AC-BRKFST PRN 08/01/18 [History] Pregabalin [Lyrica] 200 mg PO BID 08/08/18 [History] Warfarin [Coumadin] 2 mg PO MOTH 08/08/18 [History] Warfarin [Coumadin] 3 mg PO SUTUWEFRSA 08/08/18 [History] HYDROcodone/APAP 5-325MG [[place] 5-325] 1 - 2 tab PO Q6H PRN #56 tab 08/11/18 [Rx ] Sennosides [Senokot] 1 tab PO BID #60 tablet 08/11/18 [Rx] Follow up Appointment(s)/Referral(s): Madison Jacob, [NON-STAFF] - As Needed Prakash Villeda DO [Doctor of Osteopathic Medicine] - 2 Weeks Ambulatory/Diagnostic Orders: Continuous Passive Motion (CPM) Machine [DME.AMB1] Time Frame: 3 Weeks, Location : None Selected Activity/Diet/Wound Care/Special Instructions: Weightbearing as tolerated with a walker. Coumadin dosing per internal medicine. CPM 5-6h daily. Leave dressing intact. May be removed by home care nurse in 10 days. May shower with dressing on. Please call [facility] with any questions or concerns, . Discharge Disposition: TRANSFER TO SNF/ECF
[2018-08-11] MEDS: MULTIVITAMINS, THERA 1 EACH TAB PO SCH (08:31)
[2018-08-11] MEDS: PREGABALIN 100 MG CAP PO SCH ×2 (08:31→21:53)
[2018-08-11] MEDS: CALCIUM CARB-VIT D 500MG-200UN 1 EACH TAB PO SCH (08:31)
[2018-08-11] MEDS: MELOXICAM 7.5 MG TAB PO SCH (08:31)
[2018-08-11] MEDS: ALLOPURINOL 100 MG TAB PO SCH ×3 (08:32→21:54)
[2018-08-11] MEDS: LACTOBACILLUS ACIDOPH & BULGAR 1 EACH PACKET PO SCH (08:32)
[2018-08-11] MEDS: LOPERAMIDE 2 MG CAP PO SCH (08:32)
[2018-08-11] MEDS: METOPROLOL TARTRATE 25 MG TAB PO SCH (08:33)
[2018-08-11 08:39] LABS: INR 2.4 (<1.2); Prothrombin Time 21.6 sec (9.0-12.0)
[2018-08-11 08:47] LABS: Basophils % (A) 0 %; Eosinophils # (A) 0.2 k/uL (0-0.7); Eosinophils % (A) 3 %; HCT 34.8 % (34.0-46.0); Hypochromasia Slight; Lymphocytes # (A) 0.7 k/uL (1.0-4.8); Lymphocytes % (A) 16 %; MCH 31.2 pg (25.0-35.0); MCHC 31.6 g/dL (31.0-37.0); MCV 98.8 fL (80.0-100.0); Macrocytosis Slight; Mean Platelet Volume 9.3; Monocytes # (A) 0.4 k/uL (0-1.0); Monocytes % (A) 7 %; Neutrophils # (A) 3.4 k/uL (1.3-7.7); Neutrophils % (A) 71 %; RBC 3.53 m/uL (3.80-5.40); WBC 4.8 k/uL (3.8-10.6)
[2018-08-11 10:13] LABS: Large Platelets Present
[2018-08-11 10:14] LABS: Platelet Count 88 k/uL (150-450); Poikilocytosis (M) Present
[2018-08-11 11:33] LABS: Glucose,Whole Blood 97 mg/dL (75-99)
[2018-08-11 17:05] LABS: Glucose,Whole Blood 107 mg/dL (75-99)
[2018-08-11] MEDS ORDERED: WARFARIN 3 MG TAB PO ONE (18:00)
[2018-08-11 21:20] LABS: Glucose,Whole Blood 114 mg/dL (75-99)
[2018-08-11] MEDS: SENNOSIDES-DOCUSATE SODIUM 1 EACH TAB PO SCH (21:44)
[2018-08-11] MEDS: ASPIRIN 81 MG PO SCH (21:54)
[2018-08-12] MEDS: METOPROLOL TARTRATE 25 MG TAB PO SCH ×3 (00:28→22:25)
--- NOTE | 2018-08-12 01:13 | P.PN ---
Subjective Progress Note Date: 08/11/18 Principal diagnosis: Left total knee arthroplasty 72-year-old female is post left total knee arthroplasty. Patient has history of hypertension diabetes diet controlled hypothyroidism polio chronic atrial fibrillation 08/11/2018 Patient denied any complaints of left knee pain. Tolerating physical therapy. No fever no chills. No chest pain or shortness of breath. No headache or dizziness or lightheadedness. No other acute overnight issues. Patient does have chronic diarrhea due to her colitis. Patient does take Imodium which should be continued. Otherwise patient is being discharged to rehab today. Current medications reviewed. Objective - Vital Signs Vital signs: Vital Signs Temp 97.6 F 08/11/18 14:34 Pulse 81 08/11/18 14:34 Resp 16 08/11/18 14:34 BP 113/72 08/11/18 14:34 Pulse Ox 99 08/11/18 14:34 Intake & Output 08/10/18 08/11/18 08/11/18 18:59 06:59 18:59 Intake Total 500 1100 Balance 500 1100 Weight 87.997 kg Intake: Oral 500 1100 Other: Voiding Method Toilet Toilet Bedside Commode # Voids 2 1 - Exam PHYSICAL EXAMINATION: Patient is lying in the bed comfortably, no acute distress, awake alert and oriented.. HEENT: Normocephalic. Neck is supple. Pupils reactive. Nostrils clear. Oral cavity is moist. Ears reveal no drainage. Neck reveals no JVD, carotid bruits, or thyromegaly. CHEST EXAMINATION: Trachea is central. Symmetrical expansion. Lung brenner clear to auscultation and percussion. CARDIAC: Normal S1, S2 with no gallops. No murmurs ABDOMEN: Soft. Bowel sounds normal. No organomegaly. No abdominal bruits. Extremities: reveal no edema. No clubbing or cyanosis Neurologically awake, alert, oriented x3 with well-coordinated movements. No focal deficits noted Skin: No rash or skin lesions. Psychiatric: Coperative. Nonsuicidal Musculoskeletal: No joint swelling or deformity. Normal range of motion. - Labs CBC & Chem 7: 08/11/18 07:45 Labs: Abnormal Lab Results - Last 24 Hours (Table) 08/10/18 08/10/18 08/11/18 Range/Units 16:57 20:23 06:50 RBC (3.80-5.40) m/uL Hgb (11.4-16.0) gm/dL Plt Count (150-450) k/uL Lymphocytes # (1.0-4.8) k/uL PT (9.0-12.0) sec INR (<1.2) POC Glucose (mg/dL) 124 H 157 H 108 H (75-99) mg/dL 08/11/18 08/11/18 Range/Units 07:45 07:45 RBC 3.53 L (3.80-5.40) m/uL Hgb 11.0 L (11.4-16.0) gm/dL Plt Count 88 L (150-450) k/uL Lymphocytes # 0.7 L (1.0-4.8) k/uL PT 21.6 H (9.0-12.0) sec INR 2.4 H (<1.2) POC Glucose (mg/dL) (75-99) mg/dL Assessment and Plan Assessment: Left knee osteoarthritis with post left total knee arthroplasty History of hypertension Diabetes type 2 diet-controlled Hypothyroidism Colitis Polio syndrome Atrial fibrillation INR therapeutic Sleep apnea Rheumatoid arthritis Asthma Plan Imodium ordered for colitis. continue to monitor patient blood pressure ,blood glucos Time with Patient: Greater than 30
[2018-08-12] MEDS: HYDROcodone/APAP 5-325MG 1 EACH TAB PO PRN ×3 (03:20→22:28)
[2018-08-12] MEDS: LEVOTHYROXINE 88 MCG TAB PO SCH (06:09)
[2018-08-12 07:06] LABS: Glucose,Whole Blood 108 mg/dL (75-99)
[2018-08-12 07:44] LABS: INR 2.3 (<1.2)
[2018-08-12] MEDS: MELOXICAM 7.5 MG TAB PO SCH (09:11)
[2018-08-12] MEDS: PREGABALIN 100 MG CAP PO SCH ×2 (09:11→22:26)
[2018-08-12] MEDS: CALCIUM CARB-VIT D 500MG-200UN 1 EACH TAB PO SCH (09:11)
[2018-08-12] MEDS: ALLOPURINOL 100 MG TAB PO SCH ×3 (09:11→22:26)
[2018-08-12] MEDS: LOPERAMIDE 2 MG CAP PO SCH (09:11)
[2018-08-12] MEDS: MULTIVITAMINS, THERA 1 EACH TAB PO SCH (09:12)
[2018-08-12 11:23] LABS: Glucose,Whole Blood 137 mg/dL (75-99)
[2018-08-12] MEDS: INSULIN ASPART 100 UNIT/ML 1 ML 10 ML VIAL SQ SCH ×4 (12:09→22:25)
[2018-08-12] MEDS: LACTOBACILLUS ACIDOPH & BULGAR 1 EACH PACKET PO SCH (12:09)
[2018-08-12 17:35] LABS: Glucose,Whole Blood 90 mg/dL (75-99)
[2018-08-12] MEDS ORDERED: WARFARIN 3 MG TAB PO ONE (18:00)
[2018-08-12 19:40] LABS: Glucose,Whole Blood 168 mg/dL (75-99)
[2018-08-12] MEDS: ASPIRIN 81 MG PO SCH (22:25)
[2018-08-12] MEDS: SENNOSIDES-DOCUSATE SODIUM 1 EACH TAB PO SCH (22:26)
[2018-08-13] MEDS: LEVOTHYROXINE 88 MCG TAB PO SCH (06:36)
[2018-08-13] MEDS: HYDROcodone/APAP 5-325MG 1 EACH TAB PO PRN ×3 (06:39→22:48)
[2018-08-13 06:47] LABS: Glucose,Whole Blood 101 mg/dL (75-99)
[2018-08-13 08:07] LABS: INR 2.2 (<1.2); Prothrombin Time 19.6 sec (9.0-12.0)
[2018-08-13] MEDS: LACTOBACILLUS ACIDOPH & BULGAR 1 EACH PACKET PO SCH (09:05)
[2018-08-13] MEDS: PREGABALIN 100 MG CAP PO SCH ×2 (09:06→21:10)
[2018-08-13] MEDS: MELOXICAM 7.5 MG TAB PO SCH (09:06)
[2018-08-13] MEDS: MULTIVITAMINS, THERA 1 EACH TAB PO SCH (09:06)
[2018-08-13] MEDS: CALCIUM CARB-VIT D 500MG-200UN 1 EACH TAB PO SCH (09:06)
[2018-08-13] MEDS: METOPROLOL TARTRATE 25 MG TAB PO SCH ×2 (09:06→21:10)
[2018-08-13] MEDS: LOPERAMIDE 2 MG CAP PO SCH (09:07)
[2018-08-13] MEDS: ALLOPURINOL 100 MG TAB PO SCH ×3 (09:07→21:10)
[2018-08-13] MEDS: INSULIN ASPART 100 UNIT/ML 1 ML 10 ML VIAL SQ SCH ×4 (09:09→21:11)
--- NOTE | 2018-08-13 10:18 | P.PN ---
Subjective Progress Note Date: 08/13/18 Principal diagnosis: Status post left total knee arthroplasty This is a 72 year-old female post left total knee arthroplasty. This is post- op day 5. The patient was evaluated at the bedside today. The patient denies nausea, vomiting, abdominal pain, shortness of breath, and chest pain this morning. She states her pain is controlled at this time. The patient has been up with physical therapy. We are awaiting insurance verification for rehab placement. Objective - Vital Signs Vital signs: Vital Signs Temp 98.8 F 08/13/18 01:48 Pulse 68 08/13/18 01:48 Resp 16 08/13/18 01:48 BP 101/66 08/13/18 01:48 Pulse Ox 95 08/13/18 01:48 Intake & Output 08/12/18 08/13/18 08/13/18 18:59 06:59 18:59 Intake Total 974 1620 250 Balance 974 1620 250 Intake: Oral 974 1620 250 Other: # Voids 2 1 - Exam The patient does not appear in acute distress. Alert and orientated x3. Dressing is clean dry and intact. Incision appears fine with no erythema or active drainage. Calf is soft and nontender. Good foot and ankle motion without difficulty. Sensation and circulatory status is intact. - Labs CBC & Chem 7: 08/11/18 07:45 Labs: Abnormal Lab Results - Last 24 Hours (Table) 08/12/18 08/12/18 08/13/18 Range/Units 11:11 19:28 06:34 PT (9.0-12.0) sec INR (<1.2) POC Glucose (mg/dL) 137 H 168 H 101 H (75-99) mg/dL 08/13/18 Range/Units 06:46 PT 19.6 H (9.0-12.0) sec INR 2.2 H (<1.2) POC Glucose (mg/dL) (75-99) mg/dL Assessment and Plan (1) Primary osteoarthritis of left knee Current Visit: Yes Status: Acute Code(s): M17.12 - UNILATERAL PRIMARY OSTEOARTHRITIS, LEFT KNEE SNOMED Code(s): 263425756139477 (2) S/P total knee arthroplasty Current Visit: Yes Status: Acute Code(s): Z96.659 - PRESENCE OF UNSPECIFIED ARTIFICIAL KNEE JOINT SNOMED Code(s): 0191931290786 Plan: 1. Continue pain control 2. Anticoagulation with Coumadin per protocol 3. Continue physical therapy and ambulation 4. Anticipate discharge to skilled rehab tomorrow depending on insurance verification.
[2018-08-13 11:26] LABS: Glucose,Whole Blood 78 mg/dL (75-99)
[2018-08-13 17:33] LABS: Glucose,Whole Blood 88 mg/dL (75-99)
[2018-08-13] MEDS ORDERED: WARFARIN 3 MG TAB PO ONE (18:00)
[2018-08-13 20:41] LABS: Glucose,Whole Blood 100 mg/dL (75-99)
[2018-08-13] MEDS: ASPIRIN 81 MG PO SCH (21:10)
[2018-08-13] MEDS: SENNOSIDES-DOCUSATE SODIUM 1 EACH TAB PO SCH (21:11)
--- NOTE | 2018-08-14 00:57 | P.PN ---
Subjective Progress Note Date: 08/12/18 Principal diagnosis: Left total knee arthroplasty 72-year-old female is post left total knee arthroplasty. Patient has history of hypertension diabetes diet controlled hypothyroidism polio chronic atrial fibrillation 08/11/2018 Patient denied any complaints of left knee pain. Tolerating physical therapy. No fever no chills. No chest pain or shortness of breath. No headache or dizziness or lightheadedness. No other acute overnight issues. Patient does have chronic diarrhea due to her colitis. Patient does take Imodium which should be continued. Otherwise patient is being discharged to rehab today. 08/12/2018 Patient denied any complaints of chest pain or shortness of breath. Left knee pain is better and able to participate in physical therapy. No other acute overnight issues. Possible discharge to rehab on Tuesday. Current medications reviewed. Objective - Vital Signs Vital signs: Vital Signs Temp 98.3 F 08/12/18 14:16 Pulse 99 08/12/18 14:16 Resp 16 08/12/18 14:16 BP 131/80 08/12/18 14:16 Pulse Ox 98 08/12/18 14:16 Intake & Output 08/11/18 08/12/18 08/12/18 18:59 06:59 18:59 Intake Total 1100 738 Balance 1100 738 Weight 87.997 kg Intake: Oral 1100 738 Other: Voiding Method Toilet # Voids 2 2 # Bowel Movements 2 - Exam PHYSICAL EXAMINATION: Patient is lying in the bed comfortably, no acute distress, awake alert and oriented.. HEENT: Normocephalic. Neck is supple. Pupils reactive. Nostrils clear. Oral cavity is moist. Ears reveal no drainage. Neck reveals no JVD, carotid bruits, or thyromegaly. CHEST EXAMINATION: Trachea is central. Symmetrical expansion. Lung brenner clear to auscultation and percussion. CARDIAC: Normal S1, S2 with no gallops. No murmurs ABDOMEN: Soft. Bowel sounds normal. No organomegaly. No abdominal bruits. Extremities: reveal no edema. No clubbing or cyanosis Neurologically awake, alert, oriented x3 with well-coordinated movements. No focal deficits noted Skin: No rash or skin lesions. Psychiatric: Coperative. Nonsuicidal Musculoskeletal: No joint swelling or deformity. Normal range of motion. - Labs CBC & Chem 7: 08/11/18 07:45 Labs: Abnormal Lab Results - Last 24 Hours (Table) 08/11/18 08/12/18 08/12/18 Range/Units 21:19 06:42 06:50 PT 21.0 H (9.0-12.0) sec INR 2.3 H (<1.2) POC Glucose (mg/dL) 114 H 108 H (75-99) mg/dL 08/12/18 Range/Units 11:11 PT (9.0-12.0) sec INR (<1.2) POC Glucose (mg/dL) 137 H (75-99) mg/dL Assessment and Plan Assessment: Left knee osteoarthritis with post left total knee arthroplasty History of hypertension Diabetes type 2 diet-controlled Hypothyroidism Colitis Polio syndrome Atrial fibrillation INR therapeutic Sleep apnea Rheumatoid arthritis Asthma Plan Imodium ordered for colitis. continue to monitor patient blood pressure ,blood glucose Time with Patient: Greater than 30
--- NOTE | 2018-08-14 00:58 | P.PN ---
Subjective Progress Note Date: 08/13/18 Principal diagnosis: Left total knee arthroplasty 72-year-old female is post left total knee arthroplasty. Patient has history of hypertension diabetes diet controlled hypothyroidism polio chronic atrial fibrillation 08/11/2018 Patient denied any complaints of left knee pain. Tolerating physical therapy. No fever no chills. No chest pain or shortness of breath. No headache or dizziness or lightheadedness. No other acute overnight issues. Patient does have chronic diarrhea due to her colitis. Patient does take Imodium which should be continued. Otherwise patient is being discharged to rehab today. 08/12/2018 Patient denied any complaints of chest pain or shortness of breath. Left knee pain is better and able to participate in physical therapy. No other acute overnight issues. Possible discharge to rehab on Tuesday. 08/13/2018 Patient denied any new complaints today. Awaiting placement to rehab. No fever no chills. No nausea vomiting or abdominal pain. No other acute overnight issues. Diarrhea improved. Otherwise Current medications reviewed. Objective - Vital Signs Vital signs: Vital Signs Temp 97.8 F 08/13/18 14:40 Pulse 79 08/13/18 14:40 Resp 16 08/13/18 14:40 BP 109/69 08/13/18 14:40 Pulse Ox 97 08/13/18 14:40 Intake & Output 08/12/18 08/13/18 08/13/18 18:59 06:59 18:59 Intake Total 974 1620 990 Balance 974 1620 990 Intake: Oral 974 1620 990 Other: # Voids 2 1 2 - Exam PHYSICAL EXAMINATION: Patient is lying in the bed comfortably, no acute distress, awake alert and oriented.. HEENT: Normocephalic. Neck is supple. Pupils reactive. Nostrils clear. Oral cavity is moist. Ears reveal no drainage. Neck reveals no JVD, carotid bruits, or thyromegaly. CHEST EXAMINATION: Trachea is central. Symmetrical expansion. Lung brenner clear to auscultation and percussion. CARDIAC: Normal S1, S2 with no gallops. No murmurs ABDOMEN: Soft. Bowel sounds normal. No organomegaly. No abdominal bruits. Extremities: reveal no edema. No clubbing or cyanosis Neurologically awake, alert, oriented x3 with well-coordinated movements. No focal deficits noted Skin: No rash or skin lesions. Psychiatric: Coperative. Nonsuicidal Musculoskeletal: No joint swelling or deformity. Normal range of motion. - Labs CBC & Chem 7: 08/11/18 07:45 Labs: Abnormal Lab Results - Last 24 Hours (Table) 08/12/18 08/13/18 08/13/18 Range/Units 19:28 06:34 06:46 PT 19.6 H (9.0-12.0) sec INR 2.2 H (<1.2) POC Glucose (mg/dL) 168 H 101 H (75-99) mg/dL Assessment and Plan Assessment: Left knee osteoarthritis with post left total knee arthroplasty History of hypertension Diabetes type 2 diet-controlled Hypothyroidism Colitis Polio syndrome Atrial fibrillation INR therapeutic Sleep apnea Rheumatoid arthritis Asthma Plan Imodium ordered for colitis. continue to monitor patient blood pressure ,blood glucose
[2018-08-14] MEDS: LEVOTHYROXINE 88 MCG TAB PO SCH (06:28)
[2018-08-14] MEDS: INSULIN ASPART 100 UNIT/ML 1 ML 10 ML VIAL SQ SCH ×2 (07:09→12:14)
[2018-08-14 07:17] LABS: Glucose,Whole Blood 105 mg/dL (75-99)
[2018-08-14 07:52] LABS: INR 2.7 (<1.2); Prothrombin Time 23.9 sec (9.0-12.0)
[2018-08-14] MEDS: MULTIVITAMINS, THERA 1 EACH TAB PO SCH (08:11)
[2018-08-14] MEDS: MELOXICAM 7.5 MG TAB PO SCH (08:11)
[2018-08-14] MEDS: ALLOPURINOL 100 MG TAB PO SCH ×2 (08:11→16:37)
[2018-08-14] MEDS: HYDROcodone/APAP 5-325MG 1 EACH TAB PO PRN ×2 (08:11→14:50)
[2018-08-14] MEDS: PREGABALIN 100 MG CAP PO SCH (08:11)
[2018-08-14] MEDS: LOPERAMIDE 2 MG CAP PO SCH (08:11)
[2018-08-14] MEDS: CALCIUM CARB-VIT D 500MG-200UN 1 EACH TAB PO SCH (08:11)
[2018-08-14] MEDS: LACTOBACILLUS ACIDOPH & BULGAR 1 EACH PACKET PO SCH (08:11)
[2018-08-14] MEDS: METOPROLOL TARTRATE 25 MG TAB PO SCH (08:14)
[2018-08-14 08:17] VITALS: TEMP 97.5
--- NOTE | 2018-08-14 09:20 | P.DS ---
Providers Date of admission: 08/08/18 11:38 Expected date of discharge: 08/14/18 Attending physician: Prakash Villeda Consults: 08/08/18 13:37 Consult Physician Routine Consulting Provider: Johnny To Consult Reason/Comments: medical management Do you want consulting provider notified?: Yes Primary care physician: Johnny Ma Yousuf - Discharge Diagnosis(es) (1) S/P total knee arthroplasty Current Visit: Yes Status: Acute (2) Primary osteoarthritis of left knee Current Visit: Yes Status: Acute Hospital Course: This is a 72-year-old female with known history of degenerative arthritis of the left knee. The patient presents for evaluation. After discussion and consideration patient elects to proceed with total knee arthroplasty. The patient is seen preoperatively by Dr. Villeda and medically cleared for surgery by their primary care physician. Patient is admitted to [facility] on 08/08/2018 for total knee arthroplasty. The procedures performed without complication or sequelae. The patient is doing well postoperatively. Labs and vital signs are stable on day of discharge. On day of discharge patient's knee incision is healing well. There is minimal erythema. There is no drainage noted at this time. There is minimal soft tissue swelling to the knee. Patient has full foot and ankle motion without difficulty or pain. Neurovascular status to the left lower extremity is intact. Patient is discharged home, or to rehab if accepted, in good condition. Please see med rec for accurate list of home medications. Plan - Discharge Summary Discharge Rx Participant: No New Discharge Prescriptions: New HYDROcodone/APAP 5-325MG [[place] 5-325] 1 - 2 tab PO Q6H PRN #56 tab PRN Reason: Pain Sennosides [Senokot] 1 tab PO BID #60 tablet No Action Multivitamins, Thera [Multivitamin] 1 tab PO DAILY Calcium Citrate/Vitamin D3 [Calcium Citrate - Vit D3 Tab] 1 tab PO DAILY Loperamide [Imodium] 4 mg PO DAILY Aspirin 81 mg PO HS Mometasone Furoate [Nasonex] 2 spray NASAL DAILY PRN PRN Reason: Nasal Congestion Mesalamine [Lialda] 1.2 gm PO BID Levothyroxine Sodium [Synthroid] 88 mcg PO DAILY L.acidoph,Paracasei, B.lactis [Probiotic] 1 cap PO DAILY Acetaminophen [Tylenol Extra Strength] 500 mg PO DAILY PRN PRN Reason: Pain Omeprazole [PriLOSEC] 20 mg PO AC-BRKFST PRN PRN Reason: Dyspepsia Metoprolol Tartrate [Lopressor] 75 mg PO BID Allopurinol [Zyloprim] 100 mg PO TID Pregabalin [Lyrica] 200 mg PO BID Warfarin [Coumadin] 3 mg PO SUTUWEFRSA Warfarin [Coumadin] 2 mg PO MOTH Discharge Medication List Aspirin 81 mg PO HS 04/08/14 [History] Calcium Citrate/Vitamin D3 [Calcium Citrate - Vit D3 Tab] 1 tab PO DAILY [History] Levothyroxine Sodium [Synthroid] 88 mcg PO DAILY 04/08/14 [History] Loperamide [Imodium] 4 mg PO DAILY 04/08/14 [History] Mesalamine [Lialda] 1.2 gm PO BID 04/08/14 [History] Mometasone Furoate [Nasonex] 2 spray NASAL DAILY PRN 04/08/14 [History] Multivitamins, Thera [Multivitamin] 1 tab PO DAILY 04/08/14 [History] Acetaminophen [Tylenol Extra Strength] 500 mg PO DAILY PRN 08/01/18 [History] Allopurinol [Zyloprim] 100 mg PO TID 08/01/18 [History] L.acidoph,Paracasei, B.lactis [Probiotic] 1 cap PO DAILY 08/01/18 [History] Metoprolol Tartrate [Lopressor] 75 mg PO BID 08/01/18 [History] Omeprazole [PriLOSEC] 20 mg PO AC-BRKFST PRN 08/01/18 [History] Pregabalin [Lyrica] 200 mg PO BID 08/08/18 [History] Warfarin [Coumadin] 2 mg PO MOTH 08/08/18 [History] Warfarin [Coumadin] 3 mg PO SUTUWEFRSA 08/08/18 [History] HYDROcodone/APAP 5-325MG [[place] 5-325] 1 - 2 tab PO Q6H PRN #56 tab 08/11/18 [Rx ] Sennosides [Senokot] 1 tab PO BID #60 tablet 08/11/18 [Rx] Follow up Appointment(s)/Referral(s): Madison Jacob, [NON-STAFF] - As Needed Prakash Villeda DO [Doctor of Osteopathic Medicine] - 08/28/18 1:30 pm (With Olesya Crowley) Ambulatory/Diagnostic Orders: Continuous Passive Motion (CPM) Machine [DME.AMB1] Time Frame: 3 Weeks, Location : None Selected Activity/Diet/Wound Care/Special Instructions: Weightbearing as tolerated with a walker. Coumadin per internal medicine. CPM 5-6h daily. Leave dressing intact. May be removed by home care nurse in 10 days. May shower with dressing on. Please call [facility] with any questions or concerns, . Discharge Disposition: TRANSFER TO SNF/ECF
[2018-08-14 12:12] LABS: Glucose,Whole Blood 105 mg/dL (75-99)
--- NOTE | 2018-08-14 12:46 | P.PN ---
Progress Note - Text Patient is medically stable for discharge whether with rehab or home with home care
[2018-08-14 14:59] VITALS: BP 130/87; PULSE 76; RESP 16
[2018-08-14] MEDS ORDERED: WARFARIN 2 MG TAB PO SCH (18:00)
[2018-08-15] MEDS ORDERED: WARFARIN 3 MG TAB PO SCH (18:00)
== END 2018-08-14 17:05 | disposition home health service (06) | DRG 470 ==
LOC: 2ORMAIN 11:38 → 4SSUR 16:26
PROVIDERS: ADMIT Orthopaedic Surgery; ATTEND Orthopaedic Surgery
PROC: 0SRD069 Replacement of Left Knee Joint with Oxidized Zirconium on Polyethylene Synthetic Substitute, Cemented, Open Approach (ICD-10-PCS; principal; 2018-08-08 13:45)
DX: M17.12 Unilateral primary osteoarthritis, left knee (principal); I27.20 Pulmonary hypertension, unspecified; I08.3 Combined rheumatic disorders of mitral, aortic and tricuspid valves; M06.9 Rheumatoid arthritis, unspecified; I48.2 Chronic atrial fibrillation; E11.9 Type 2 diabetes mellitus without complications; I10 Essential (primary) hypertension; E78.5 Hyperlipidemia, unspecified; E78.00 Pure hypercholesterolemia, unspecified; J45.909 Unspecified asthma, uncomplicated; G47.33 Obstructive sleep apnea (adult) (pediatric); M79.7 Fibromyalgia; E03.9 Hypothyroidism, unspecified; G14 Postpolio syndrome; K52.9 Noninfective gastroenteritis and colitis, unspecified; M10.9 Gout, unspecified; E66.9 Obesity, unspecified; Z68.30 Body mass index [BMI] 30.0-30.9, adult; Z79.01 Long term (current) use of anticoagulants; Z79.82 Long term (current) use of aspirin; Z79.1 Long term (current) use of non-steroidal anti-inflammatories (NSAID); Z79.890 Hormone replacement therapy; Z79.899 Other long term (current) drug therapy; Z97.3 Presence of spectacles and contact lenses; Z98.51 Tubal ligation status; Z90.710 Acquired absence of both cervix and uterus; Z90.49 Acquired absence of other specified parts of digestive tract; Z86.59 Personal history of other mental and behavioral disorders; Z88.2 Allergy status to sulfonamides; Z88.5 Allergy status to narcotic agent; Z82.49 Family history of ischemic heart disease and other diseases of the circulatory system; Z80.9 Family history of malignant neoplasm, unspecified
CPT/HCPCS: 83036; 85025; 85027; 85610; 85730; 88300

== ENCOUNTER → 2019-03-21 | Outpatient (CLI) | payer MEDICARE ==
--- NOTE | 2019-03-22 12:53 | MM ---
Reason for exam: screening (asymptomatic). Last mammogram was performed 1 year ago. History: Patient is postmenopausal. Family history of breast cancer in maternal aunt and premenopausal breast cancer in maternal aunt. Took hormonal contraceptives for 20 years beginning at age 20. Took estrogen for 11 years. Took progesterone for 11 years. Physical Findings: A clinical breast exam by your physician is recommended on an annual basis and results should be correlated with mammographic findings. MG 3D Screening Mammo W/Cad Bilateral CC and MLO view(s) were taken. Prior study comparison: March 10, 2018, bilateral MG 3d screening mammo w/cad. September 14, 2017, left breast MG 3d diag mammo w/cad LT. There are scattered fibroglandular densities. There is chronic nodularity bilaterally. No significant changes when compared with prior studies. ASSESSMENT: Negative, BI-RAD 1 RECOMMENDATION: Routine screening mammogram of both breasts in 1 year.
== END | disposition home or self-care (01) ==
LOC: RADMAMWWP 11:26
PROVIDERS: ATTEND Obstetrics & Gynecology Obstetrics
DX: Z12.31 Encounter for screening mammogram for malignant neoplasm of breast (principal)
CPT/HCPCS: 77063; 77067

== ENCOUNTER 2019-11-08 11:52 | Inpatient (IN) | payer MEDICARE ==
[2019-11-08] MEDS ORDERED: SODIUM CHLORIDE 0.9% 1,000 ML IV ONE ×2 (12:39→14:14)
[2019-11-08] MEDS ORDERED: DIPHENOX-ATROP 2.5-0.025 MG 1 EACH TAB PO STA (12:41)
[2019-11-08 12:44] LABS: Basophils % (A) 0 %; Eosinophils % (A) 1 %; HCT 40.1 % (34.0-46.0); HGB 12.8 gm/dL (11.4-16.0); Hypochromasia Slight; Lymphocytes # (A) 1.1 k/uL (1.0-4.8); Lymphocytes % (A) 22 %; MCH 31.2 pg (25.0-35.0); MCHC 31.9 g/dL (31.0-37.0); MCV 97.9 fL (80.0-100.0); Monocytes # (A) 0.3 k/uL (0-1.0); Monocytes % (A) 7 %; Neutrophils # (A) 3.5 k/uL (1.3-7.7); Neutrophils % (A) 67 %; Platelet Count 114 k/uL (150-450); RBC 4.09 m/uL (3.80-5.40); RDW 15.3 % (11.5-15.5); WBC 5.2 k/uL (3.8-10.6)
[2019-11-08 12:56] LABS: INR 2.5 (<1.2); Partial Thromboplastin Time 39.1 sec (22.0-30.0); Prothrombin Time 24.6 sec (9.0-12.0)
[2019-11-08 13:01] LABS: Potassium 3.9 mmol/L (3.5-5.1)
--- NOTE | 2019-11-08 13:05 | ED ---
General Adult HPI - General Chief complaint: GI Bleed Stated complaint: Blood in stool, sore throat Time Seen by Provider: 11/08/19 12:00 Source: patient, RN notes reviewed, old records reviewed Mode of arrival: wheelchair Limitations: no limitations - History of Present Illness Initial comments: This a 74-year-old female presents emergency department with past medical history significant for atrial fibrillation and she is on Coumadin. Patient states she started having nausea vomiting and diarrhea yesterday and continued throughout the night into today. Patient states that she started having bright light in her blood stool this morning. Patient states she has no history of similar. Patient denies any chest pain difficulty breathing first breath per patient does feel lightheaded. Patient states she also feels weak. Patient denies any headache patient denies any numbness weakness that is focal. - Related Data Home Medications Medication Instructions Recorded Confirmed Calcium Citrate/Vitamin D3 1 tab PO DAILY 04/08/14 11/08/19 [Calcium Citrate - Vit D3 Tab] Levothyroxine Sodium [Synthroid] 88 mcg PO DAILY 04/08/14 11/08/19 Loperamide [Imodium] 4 mg PO DAILY 04/08/14 11/08/19 Mesalamine [Lialda] 1.2 gm PO BID 04/08/14 11/08/19 Acetaminophen [Tylenol Extra 500 mg PO DAILY PRN 08/01/18 11/08/19 Strength] Allopurinol [Zyloprim] 100 mg PO TID 08/01/18 11/08/19 Omeprazole [PriLOSEC] 20 mg PO AC-BRKFST PRN 08/01/18 11/08/19 Pregabalin [Lyrica] 200 mg PO BID 08/08/18 11/08/19 Warfarin [Coumadin] 2 mg PO MOWEFR 08/08/18 11/08/19 Warfarin [Coumadin] 3 mg PO SUTUTHSA 08/08/18 11/08/19 Cephalexin [Keflex] 500 mg PO Q12HR 11/08/19 11/08/19 Diphenox-Atrop 2.5-0.025 mg 2 tab PO HS 11/08/19 11/08/19 [Lomotil] Ferrous Sulfate [Feosol] 325 mg PO DAILY 11/08/19 11/08/19 Fluticasone Nasal [place] [Flonase 2 spr EA NOSTRIL DAILY PRN 11/08/19 11/08/19 Nasal [place]] Keybiotics 1 tab PO DAILY 11/08/19 11/08/19 Metoprolol Tartrate [Lopressor] 25 mg PO TID 11/08/19 11/08/19 Metoprolol Tartrate [Lopressor] 50 mg PO TID 11/08/19 11/08/19 Simply Right Mature Women 1 tab PO DAILY 11/08/19 11/08/19 Allergies Allergy/AdvReac Type Severity Reaction Status Date / Time nitrofurantoin Allergy Severe Rash/Hives Verified 11/08/19 13:31 [From Macrobid] nitrofurantoin Allergy Severe Rash/Hives Verified 11/08/19 13:31 macrocrystalline [From Macrobid] sulfamethoxazole Allergy Severe Rash/Hives Verified 11/08/19 13:31 [From Bactrim] trimethoprim [From Bactrim] Allergy Severe Rash/Hives Verified 11/08/19 13:31 hydromorphone HCl AdvReac Severe Nausea & Verified 11/08/19 13:31 [From Dilaudid] Vomiting Review of Systems ROS Statement: Those systems with pertinent positive or pertinent negative responses have been documented in the HPI. ROS Other: All systems not noted in ROS Statement are negative. 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 Aortic regurgitation. History of Any Multi-Drug Resistant Organisms: None Reported Past Surgical History: Cholecystectomy, Heart Catheterization, Hernia Repair, Hysterectomy, Orthopedic Surgery, Tubal Ligation Additional Past Surgical History / Comment(s): Trans abdominal vaginal wall suspension. "Dr. Abdi Riggs fixed a hole in my heart". Cardioversion. L3-4 lumber laminectomy. Past Anesthesia/Blood Transfusion Reactions: Motion Sickness, Postoperative Nausea & Vomiting (PONV) Additional Past Anesthesia/Blood Transfusion Reaction / Comment(s): has letter from "post polio with anesthesia recommendations" pt to bring with her. "takes long time to come out of anesthesia" Past Psychological History: Depression Smoking Status: Never smoker Past Alcohol Use History: Occasional Past Drug Use History: None Reported - Past Family History Father Family Medical History: Myocardial Infarction ([place]) Mother Family Medical History: Cancer General Exam - General Exam Comments Initial Comments: GENERAL: Patient is well-developed and well-nourished. Patient is nontoxic and well- hydrated and is in mild distress. ENT: Neck is soft and supple. No significant lymphadenopathy is noted. Oropharynx is clear. Moist mucous membranes. Neck has full range of motion without eliciting any pain. There is no thyroid enlargement and no masses were felt. EYES: The sclera were anicteric and conjunctiva were pink and moist. Extraocular movements were intact and pupils were equal round and reactive to light. Eyel ids were unremarkable. PULMONARY: Unlabored respirations. Good breath sounds bilaterally. No audible rales rhonchi or wheezing was noted. CARDIOVASCULAR: Patient has no irregular heartbeat at about 80 beats a minute. ABDOMEN: Soft and nontender with normal bowel sounds. SKIN: Skin is clear with no lesions or rashes and otherwise unremarkable. NEUROLOGIC: Patient is alert and oriented x3. Cranial nerves II through XII are grossly intact. Motor and sensory are also intact. Normal speech, volume and content. Symmetrical smile. MUSCULOSKELETAL: Normal extremities with adequate strength and full range of motion. LYMPHATICS: No significant lymphadenopathy is noted PSYCHIATRIC: Normal psychiatric evaluation. Limitations: no limitations Course Vital Signs 11/08/19 11/08/19 11/08/19 11:58 12:25 12:30 Temperature 97.3 F L Pulse Rate 85 81 80 Respiratory 18 20 16 Rate Blood Pressure 72/47 95/69 99/59 O2 Sat by Pulse 96 95 97 Oximetry 11/08/19 11/08/19 11/08/19 12:40 13:00 13:20 Temperature Pulse Rate 79 79 75 Respiratory 18 18 18 Rate Blood Pressure 97/67 90/56 94/57 O2 Sat by Pulse 99 74 L 94 L Oximetry 11/08/19 11/08/19 13:40 14:00 Temperature Pulse Rate 68 74 Respiratory 18 18 Rate Blood Pressure 98/71 99/64 O2 Sat by Pulse 96 95 Oximetry Medical Decision Making - Medical Decision Making EKG shows A. fib at a rate of 80 bpm QRS is 86 QT interval 396 QTC is 456. Patient's EKG shows no acute ST segment elevation or depression. - Lab Data Result diagrams: 11/08/19 12:20 02/13/20 12:20 Lab Results 11/08/19 11/08/19 11/08/19 Range/Units 12:15 12:20 12:20 WBC 5.2 (3.8-10.6) k/uL RBC 4.09 (3.80-5.40) m/uL Hgb 12.8 (11.4-16.0) gm/dL Hct 40.1 (34.0-46.0) % MCV 97.9 (80.0-100.0) fL MCH 31.2 (25.0-35.0) pg MCHC 31.9 (31.0-37.0) g/dL RDW 15.3 (11.5-15.5) % Plt Count 114 L (150-450) k/uL Neutrophils % 67 % Lymphocytes % 22 % Monocytes % 7 % Eosinophils % 1 % Basophils % 0 % Neutrophils # 3.5 (1.3-7.7) k/uL Lymphocytes # 1.1 (1.0-4.8) k/uL Monocytes # 0.3 (0-1.0) k/uL Eosinophils # 0.0 (0-0.7) k/uL Basophils # 0.0 (0-0.2) k/uL Hypochromasia Slight PT (9.0-12.0) sec INR (<1.2) APTT (22.0-30.0) sec Sodium (137-145) mmol/L Potassium (3.5-5.1) mmol/L Chloride (98-107) mmol/L Carbon Dioxide (22-30) mmol/L Anion Gap mmol/L BUN (7-17) mg/dL Creatinine (0.52-1.04) mg/dL Est GFR (CKD-EPI)AfAm (>60 ml/min/1.73 sqM) Est GFR (CKD-EPI)NonAf (>60 ml/min/1.73 sqM) Glucose (74-99) mg/dL Plasma Lactic Acid Gabe (0.7-2.0) mmol/L Calcium (8.4-10.2) mg/dL Total Bilirubin (0.2-1.3) mg/dL AST (14-36) U/L ALT (4-34) U/L Alkaline Phosphatase (38-126) U/L Troponin I (0.000-0.034) ng/mL Total Protein (6.3-8.2) g/dL Albumin (3.5-5.0) g/dL Blood Type O Positive Blood Type Confirm O Positive Blood Type Recheck No Previous Record Bld Type Recheck Status CABO Indicated Antibody Screen NEGATIVE Spec Expiration Date 11/11/2019 - 231911/08/19 11/08/19 11/08/19 Range/Units 12:20 12:20 12:20 WBC (3.8-10.6) k/uL RBC (3.80-5.40) m/uL Hgb (11.4-16.0) gm/dL Hct (34.0-46.0) % MCV (80.0-100.0) fL MCH (25.0-35.0) pg MCHC (31.0-37.0) g/dL RDW (11.5-15.5) % Plt Count (150-450) k/uL Neutrophils % % Lymphocytes % % Monocytes % % Eosinophils % % Basophils % % Neutrophils # (1.3-7.7) k/uL Lymphocytes # (1.0-4.8) k/uL Monocytes # (0-1.0) k/uL Eosinophils # (0-0.7) k/uL Basophils # (0-0.2) k/uL Hypochromasia PT 24.6 H (9.0-12.0) sec INR 2.5 H (<1.2) APTT 39.1 H (22.0-30.0) sec Sodium 137 (137-145) mmol/L Potassium 3.9 (3.5-5.1) mmol/L Chloride 107 (98-107) mmol/L Carbon Dioxide 18 L (22-30) mmol/L Anion Gap 12 mmol/L BUN 45 H (7-17) mg/dL Creatinine 2.24 H (0.52-1.04) mg/dL Est GFR (CKD-EPI)AfAm 24 (>60 ml/min/1.73 sqM) Est GFR (CKD-EPI)NonAf 21 (>60 ml/min/1.73 sqM) Glucose 134 H (74-99) mg/dL Plasma Lactic Acid Gabe 1.0 (0.7-2.0) mmol/L Calcium 8.2 L (8.4-10.2) mg/dL Total Bilirubin 0.5 (0.2-1.3) mg/dL AST 34 (14-36) U/L ALT 16 (4-34) U/L Alkaline Phosphatase 89 (38-126) U/L Troponin I (0.000-0.034) ng/mL Total Protein 5.4 L (6.3-8.2) g/dL Albumin 3.0 L (3.5-5.0) g/dL Blood Type Blood Type Confirm Blood Type Recheck Bld Type Recheck Status Antibody Screen Spec Expiration Date 11/08/19 Range/Units 12:20 WBC (3.8-10.6) k/uL RBC (3.80-5.40) m/uL Hgb (11.4-16.0) gm/dL Hct (34.0-46.0) % MCV (80.0-100.0) fL MCH (25.0-35.0) pg MCHC (31.0-37.0) g/dL RDW (11.5-15.5) % Plt Count (150-450) k/uL Neutrophils % % Lymphocytes % % Monocytes % % Eosinophils % % Basophils % % Neutrophils # (1.3-7.7) k/uL Lymphocytes # (1.0-4.8) k/uL Monocytes # (0-1.0) k/uL Eosinophils # (0-0.7) k/uL Basophils # (0-0.2) k/uL Hypochromasia PT (9.0-12.0) sec INR (<1.2) APTT (22.0-30.0) sec Sodium (137-145) mmol/L Potassium (3.5-5.1) mmol/L Chloride (98-107) mmol/L Carbon Dioxide (22-30) mmol/L Anion Gap mmol/L BUN (7-17) mg/dL Creatinine (0.52-1.04) mg/dL Est GFR (CKD-EPI)AfAm (>60 ml/min/1.73 sqM) Est GFR (CKD-EPI)NonAf (>60 ml/min/1.73 sqM) Glucose (74-99) mg/dL Plasma Lactic Acid Gabe (0.7-2.0) mmol/L Calcium (8.4-10.2) mg/dL Total Bilirubin (0.2-1.3) mg/dL AST (14-36) U/L ALT (4-34) U/L Alkaline Phosphatase (38-126) U/L Troponin I <0.012 (0.000-0.034) ng/mL Total Protein (6.3-8.2) g/dL Albumin (3.5-5.0) g/dL Blood Type Blood Type Confirm Blood Type Recheck Bld Type Recheck Status Antibody Screen Spec Expiration Date Disposition Clinical Impression: Gastrointestinal hemorrhage Disposition: ADMITTED IP TO THIS HOSP Referrals: Johnny To MD [Primary Care Provider] - 1-2 days Time of Disposition: 14:14
[2019-11-08 13:34] LABS: Calcium 8.2 mg/dL (8.4-10.2); Total Bilirubin 0.5 mg/dL (0.2-1.3); Total Protein 5.4 g/dL (6.3-8.2)
[2019-11-08] MEDS ORDERED: ACETAMINOPHEN TAB 500 MG TAB PO PRN (17:01)
[2019-11-08] MEDS ORDERED: PANTOPRAZOLE 40 MG TABLET PO PRN (17:01)
[2019-11-08] MEDS: ALLOPURINOL 100 MG TAB PO SCH (21:27)
[2019-11-08] MEDS: BALSALAZIDE DISODIUM 750 MG CAPSULE PO SCH (21:27)
--- NOTE | 2019-11-08 22:42 | P.HPIM ---
History of Present Illness H&P Date: 11/08/19 Chief Complaint: Blood per rectum Patient is a 74-year-old female with a known history of colitis, atrial fibrillation currently on anticoagulation with Coumadin, history of c ardioversion, obstructive sleep apnea, hypothyroidism, rheumatoid arthritis and fibromyalgia came to ER with complaints of nausea vomiting and diarrhea yesterday and continued throughout the night. Patient did take Lomotil at home which seemed to improve the diarrhea but patient noticed that she was started having bright red blood per rectum today morning. Denied complaints of abdominal pain. No fever no chills. No complaints of chest pain or shortness of breath. No headache or dizziness or lightheadedness. Patient does take Coumadin due to atrial fibrillation. INR is 2.5., Hemoglobin 12.8 BUN and 45 and creatinine 2.25 Troponin 1 negative. EKG showed atrial fibrillation with pacemaker Review of Systems Constitutional: Patient denies any fever or chills . No generalized weakness or weight loss. Abdomen: . Patient does have nausea vomiting and diarrhea. No abdominal pain. Blood per rectum. Cardiovascular: Patient denies any chest pain or short of breath no palpitations. Respiratory: patient denied any cough is from production. No shortness of breath Neurologic: Patient denied any numbness or tingling headache. Musculoskeletal: Patient denies any complaints of joint swelling or deformity. Skin: Negative Psychiatric: Negative Endocrine: No heat or cold intolerance. No recent weight gain. Genitourinary: No dysuria or hematuria. 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 Aortic regurgitation. History of Any Multi-Drug Resistant Organisms: None Reported Past Surgical History: Cholecystectomy, Heart Catheterization, Hernia Repair, Hysterectomy, Orthopedic Surgery, Tubal Ligation Additional Past Surgical History / Comment(s): Trans abdominal vaginal wall suspension. "Dr. Abdi Riggs fixed a hole in my heart". Cardioversion. L3-4 lumber laminectomy. Past Anesthesia/Blood Transfusion Reactions: Motion Sickness, Postoperative Nausea & Vomiting (PONV) Additional Past Anesthesia/Blood Transfusion Reaction / Comment(s): has letter from "post polio with anesthesia recommendations" pt to bring with her. "takes long time to come out of anesthesia" Past Psychological History: Depression Smoking Status: Never smoker Past Alcohol Use History: Occasional Past Drug Use History: None Reported - Past Family History Father Family Medical History: Myocardial Infarction ([place]) Mother Family Medical History: Cancer Medications and Allergies Home Medications Medication Instructions Recorded Confirmed Type Calcium Citrate/Vitamin D3 1 tab PO DAILY 04/08/14 11/08/19 History [Calcium Citrate - Vit D3 Tab] Levothyroxine Sodium [Synthroid] 88 mcg PO DAILY 04/08/14 11/08/19 History Loperamide [Imodium] 4 mg PO DAILY 04/08/14 11/08/19 History Mesalamine [Lialda] 1.2 gm PO BID 04/08/14 11/08/19 History Acetaminophen [Tylenol Extra 500 mg PO DAILY PRN 08/01/18 11/08/19 History Strength] Allopurinol [Zyloprim] 100 mg PO TID 08/01/18 11/08/19 History Omeprazole [PriLOSEC] 20 mg PO AC-BRKFST PRN 08/01/18 11/08/19 History Pregabalin [Lyrica] 200 mg PO BID 08/08/18 11/08/19 History Warfarin [Coumadin] 2 mg PO MOWEFR 08/08/18 11/08/19 History Warfarin [Coumadin] 3 mg PO SUTUTHSA 08/08/18 11/08/19 History Cephalexin [Keflex] 500 mg PO Q12HR 11/08/19 11/08/19 History Diphenox-Atrop 2.5-0.025 mg 2 tab PO HS 11/08/19 11/08/19 History [Lomotil] Ferrous Sulfate [Feosol] 325 mg PO DAILY 11/08/19 11/08/19 History Fluticasone Nasal [place] [Flonase 2 spr EA NOSTRIL DAILY PRN 11/08/19 11/08/19 History Nasal [place]] Keybiotics 1 tab PO DAILY 11/08/19 11/08/19 History Metoprolol Tartrate [Lopressor] 25 mg PO TID 11/08/19 11/08/19 History Metoprolol Tartrate [Lopressor] 50 mg PO TID 11/08/19 11/08/19 History Simply Right Mature Women 1 tab PO DAILY 11/08/19 11/08/19 History Allergies Allergy/AdvReac Type Severity Reaction Status Date / Time nitrofurantoin Allergy Severe Rash/Hives Verified 11/08/19 13:31 [From Macrobid] nitrofurantoin Allergy Severe Rash/Hives Verified 11/08/19 13:31 macrocrystalline [From Macrobid] sulfamethoxazole Allergy Severe Rash/Hives Verified 11/08/19 13:31 [From Bactrim] trimethoprim [From Bactrim] Allergy Severe Rash/Hives Verified 11/08/19 13:31 hydromorphone HCl AdvReac Severe Nausea & Verified 11/08/19 13:31 [From Dilaudid] Vomiting Physical Exam Vitals: Vital Signs Temp Pulse Pulse Resp BP BP Pulse Ox 11/08/19 15:23 97.7 F 78 16 111/72 97 11/08/19 14:20 97.6 F 76 18 101/72 98 11/08/19 14:00 74 18 99/64 95 11/08/19 13:40 68 18 98/71 96 11/08/19 13:20 75 18 94/57 94 L 11/08/19 13:00 79 18 90/56 74 L 11/08/19 12:40 79 18 97/67 99 11/08/19 12:30 80 16 99/59 97 11/08/19 12:25 81 20 95/69 95 11/08/19 11:58 97.3 F L 85 18 72/47 96 Intake and Output 11/08/19 11/08/19 11/08/19 06:59 14:59 22:59 Other: Voiding Method Toilet Weight 86.183 kg 86.183 kg PHYSICAL EXAMINATION: Patient is lying in the bed comfortably, no acute distress, awake alert and oriented.. HEENT: Normocephalic. Neck is supple. Pupils reactive. Nostrils clear. Oral cavity is moist. Ears reveal no drainage. Neck reveals no JVD, carotid bruits, or thyromegaly. CHEST EXAMINATION: Trachea is central. Symmetrical expansion. Right basilar diminished air entry. Lung brenner clear to auscultation and percussion. CARDIAC: Normal S1, S2 with no gallops. No murmurs ABDOMEN: Soft. Bowel sounds normal. No organomegaly. No abdominal bruits. Extremities: reveal no edema. No clubbing or cyanosis Neurologically awake, alert, oriented x3 with well-coordinated movements. No f ocal deficits noted Skin: No rash or skin lesions. Psychiatric: Coperative. Nonsuicidal Musculoskeletal: No joint swelling or deformity. Normal range of motion. Results CBC & Chem 7: 11/08/19 12:20 11/08/19 12:20 Labs: Abnormal Lab Results - Last 24 Hours (Table) 11/08/19 11/08/19 11/08/19 Range/Units 12: 12: 12:20 Plt Count 114 L (150-450) k/uL PT 24.6 H (9.0-12.0) sec INR 2.5 H (<1.2) APTT 39.1 H (22.0-30.0) sec Carbon Dioxide 18 L (22-30) mmol/L BUN 45 H (7-17) mg/dL Creatinine 2.24 H (0.52-1.04) mg/dL Glucose 134 H (74-99) mg/dL Calcium 8.2 L (8.4-10.2) mg/dL Total Protein 5.4 L (6.3-8.2) g/dL Albumin 3.0 L (3.5-5.0) g/dL Thrombosis Risk Factor Assmnt - DVT/VTE Prophylaxis DVT/VTE Prophylaxis: Pharmacologic Prophylaxis ordered - Choose All That Apply Each Factor Represents 1 point: Abnormal pulmonary function (COPD), Obesity (BMI >25), Swollen legs (current) Each Risk Factor Represents 3 Points: Age 75 years or older Thrombosis Risk Factor Assessment Total Risk Factor Score: 6 Thrombosis Risk Factor Assessment Level: High Risk Assessment and Plan Assessment: Bright red blood per rectum. Likely lower GI bleed History of colitis Chronic atrial fibrillation. History of cardioversion. Currently on anticoagulation with Eliquis. Hypothyroidism Objective sleep apnea on CPAP Hypertension Osteoarthritis Asthma stable Post polio syndrome Aortic regurgitation Depression Plan: Patient will be continued on gentle hydration and monitor H&H closely. Coumadin is on hold. Currently no active bleeding. Continue with telemetry monitoring. Gastroenterology service was consulted. Continue the home medications and further recommendations based on the clinical course. Time with Patient: Greater than 30
[2019-11-09] MEDS: METOPROLOL TARTRATE 25 MG TAB PO SCH ×4 (00:02→21:47)
[2019-11-09] MEDS: METOPROLOL TARTRATE 50 MG TAB PO SCH ×4 (00:02→21:46)
[2019-11-09] MEDS: LEVOTHYROXINE 88 MCG TAB PO SCH (05:47)
[2019-11-09 08:27] LABS: Basophils # (A) 0.1 k/uL (0-0.2); Basophils % (A) 3 %; Eosinophils # (A) 0.1 k/uL (0-0.7); Eosinophils % (A) 4 %; HGB 11.9 gm/dL (11.4-16.0); Hypochromasia Moderate; Lymphocytes # (A) 0.9 k/uL (1.0-4.8); Lymphocytes % (A) 26 %; MCH 30.3 pg (25.0-35.0); MCHC 30.6 g/dL (31.0-37.0); MCV 99.1 fL (80.0-100.0); Macrocytosis Slight; Mean Platelet Volume 10.1; Monocytes # (A) 0.3 k/uL (0-1.0); Monocytes % (A) 8 %; Neutrophils # (A) 1.9 k/uL (1.3-7.7); Neutrophils % (A) 57 %; RBC 3.93 m/uL (3.80-5.40); RDW 15.4 % (11.5-15.5); WBC 3.3 k/uL (3.8-10.6)
[2019-11-09 08:38] LABS: Potassium 3.9 mmol/L (3.5-5.1)
[2019-11-09 08:44] LABS: Platelet Count 89 k/uL (150-450)
[2019-11-09] MEDS: CALCIUM CARB-VIT D 500MG-200UN 1 EACH TAB PO SCH (08:46)
[2019-11-09] MEDS: BALSALAZIDE DISODIUM 750 MG CAPSULE PO SCH ×3 (08:46→21:47)
[2019-11-09] MEDS: ALLOPURINOL 100 MG TAB PO SCH ×3 (08:46→21:47)
--- NOTE | 2019-11-09 10:50 | XR ---
EXAMINATION TYPE: XR chest 1V DATE OF EXAM: 11/09/2019 COMPARISON: Prior chest x-ray 08/28/2013 HISTORY: Shortness of breath TECHNIQUE: Single frontal view of the chest is obtained. FINDINGS: There is no focal air space opacity, pleural effusion, or pneumothorax seen. The cardiac silhouette size is within normal limits. The osseous structures are intact. The aorta is dense. Niraj g volumes are low. Some minimal patchy basilar density suspected. IMPRESSION: Expiratory rotated exam, follow-up PA and lateral chest x-ray as indicated. Suspect mini mal subsegmental basilar atelectatic changes.
[2019-11-10] MEDS: LEVOTHYROXINE 88 MCG TAB PO SCH (05:21)
[2019-11-10 07:12] LABS: Basophils % (A) 0 %; Eosinophils # (A) 0.2 k/uL (0-0.7); Eosinophils % (A) 6 %; HCT 38.4 % (34.0-46.0); HGB 12.1 gm/dL (11.4-16.0); Hypochromasia Moderate; Lymphocytes # (A) 0.8 k/uL (1.0-4.8); Lymphocytes % (A) 34 %; MCH 30.7 pg (25.0-35.0); MCHC 31.4 g/dL (31.0-37.0); MCV 97.8 fL (80.0-100.0); Mean Platelet Volume 10.1; Monocytes # (A) 0.2 k/uL (0-1.0); Monocytes % (A) 9 %; Neutrophils # (A) 1.2 k/uL (1.3-7.7); Neutrophils % (A) 47 %; RBC 3.93 m/uL (3.80-5.40); RDW 15.3 % (11.5-15.5); WBC 2.4 k/uL (3.8-10.6)
[2019-11-10 07:13] LABS: Platelet Count 88 k/uL (150-450)
[2019-11-10] MEDS: METOPROLOL TARTRATE 50 MG TAB PO SCH ×3 (08:34→21:00)
[2019-11-10] MEDS: CALCIUM CARB-VIT D 500MG-200UN 1 EACH TAB PO SCH (08:34)
[2019-11-10] MEDS: BALSALAZIDE DISODIUM 750 MG CAPSULE PO SCH ×3 (08:35→21:01)
[2019-11-10] MEDS: METOPROLOL TARTRATE 25 MG TAB PO SCH ×3 (08:35→21:00)
[2019-11-10] MEDS: ALLOPURINOL 100 MG TAB PO SCH ×3 (08:35→21:01)
[2019-11-10] MEDS ORDERED: LOPERAMIDE 2 MG CAP PO PRN (11:23)
--- NOTE | 2019-11-10 11:49 | P.CONS ---
History of Present Illness - Reason for Consult Consult date: 11/10/19 Blood per rectum, diarrhea, colitis Requesting physician: Juan Manuel Fishman - Chief Complaint Diarrhea, blood per rectum - History of Present Illness 4-year-old female who presents to the hospital for evaluation of diarrhea and blood per rectum, she is a known medical history of atrial fibrillation on anticoagulation therapy with Coumadin, obstructive sleep apnea, hypothyroidism, rheumatoid arthritis, fibromyalgia and which she describes as colitis. The patient reports she has had colitis diagnosed on colonoscopy and treated with oral medication. She denies any complications from her colitis and states that on her last colonoscopy on 07/2019 she was only told of colon polyps and no active colitis (records from this colonoscopy are not available). She is not jimenes re what part of the colon her colitis effects. She presents to the hospital with complaints of worsening diarrhea. Recently she was on a cruise with her sisters who had upper respiratory tract symptoms. Upon coming home the patient had multiple episodes of loose bowel movements. She subsequently developed bright red blood per rectum. She reports associated cramping and nausea with the episodes. She describes the diarrhea is explosive with episodes of incontinence. Laboratory evaluation on presentation significant for WBC 3.3, hemoglobin 11.9, platelet count 84,000, INR 2.3, total bilirubin 0.5, alkaline phosphatase 89, AST 34 and ALT 16. Review of Systems REVIEW OF SYSTEMS: CONSTITUTIONAL: Denies any fevers, chills, weight change or fatigue. CARDIOVASCULAR: Denies any chest pain, palpitations high or low blood pressures, known history of atrial fibrillation. RESPIRATORY: Denies any shortness of breath, hemoptysis or cough. GENITOURINARY: No dysuria or hematuria. MUSCULOSKELETAL: No weakness reported. SKIN: Denies any new rashes or lesions, jaundice or pallor. PSYCHIATRIC: Denies any depression or anxiety. NEUROLOGY: Denies headache, denies any new focal deficits. EARS/NOSE/THROAT: No recent hearing change, congestion, nasal discharge or sore throat. EYES: No pain in eyes, discharge or change in vision. GASTROINTESTINAL: As per HPI. 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 Aortic regurgitation. History of Any Multi-Drug Resistant Organisms: None Reported Past Surgical History: Cholecystectomy, Heart Catheterization, Hernia Repair, Hysterectomy, Orthopedic Surgery, Tubal Ligation Additional Past Surgical History / Comment(s): Trans abdominal vaginal wall suspension. "Dr. Abdi Riggs fixed a hole in my heart". Cardioversion. L3-4 elsy mber laminectomy. Past Anesthesia/Blood Transfusion Reactions: Motion Sickness, Postoperative Nausea & Vomiting (PONV) Additional Past Anesthesia/Blood Transfusion Reaction / Comm: has letter from "post polio dr with anesthesia recommendations" pt to bring with her. "takes long time to come out of anesthesia" Past Psychological History: Depression Smoking Status: Never smoker Past Alcohol Use History: Occasional Past Drug Use History: None Reported - Past Family History Father Family Medical History: Myocardial Infarction ([place]) Mother Family Medical History: Cancer Medications and Allergies Home Medications Medication Instructions Recorded Confirmed Type Calcium Citrate/Vitamin D3 1 tab PO DAILY 04/08/14 11/08/19 History [Calcium Citrate - Vit D3 Tab] Levothyroxine Sodium [Synthroid] 88 mcg PO DAILY 04/08/14 11/08/19 History Loperamide [Imodium] 4 mg PO DAILY 04/08/14 11/08/19 History Mesalamine [Lialda] 1.2 gm PO BID 04/08/14 11/08/19 History Acetaminophen [Tylenol Extra 500 mg PO DAILY PRN 08/01/18 11/08/19 History Strength] Allopurinol [Zyloprim] 100 mg PO TID 08/01/18 11/08/19 History Omeprazole [PriLOSEC] 20 mg PO AC-BRKFST PRN 08/01/18 11/08/19 History Pregabalin [Lyrica] 200 mg PO BID 08/08/18 11/08/19 History Warfarin [Coumadin] 2 mg PO MOWEFR 08/08/18 11/08/19 History Warfarin [Coumadin] 3 mg PO SUTUTHSA 08/08/18 11/08/19 History Cephalexin [Keflex] 500 mg PO Q12HR 11/08/19 11/08/19 History Diphenox-Atrop 2.5-0.025 mg 2 tab PO HS 11/08/19 11/08/19 History [Lomotil] Ferrous Sulfate [Feosol] 325 mg PO DAILY 11/08/19 11/08/19 History Fluticasone Nasal Doon [Flonase 2 spr EA NOSTRIL DAILY PRN 11/08/19 11/08/19 History Nasal Doon] Keybiotics 1 tab PO DAILY 11/08/19 11/08/19 History Metoprolol Tartrate [Lopressor] 25 mg PO TID 11/08/19 11/08/19 History Metoprolol Tartrate [Lopressor] 50 mg PO TID 11/08/19 11/08/19 History Simply Right Mature Women 1 tab PO DAILY 11/08/19 11/08/19 History Allergies Allergy/AdvReac Type Severity Reaction Status Date / Time nitrofurantoin Allergy Severe Rash/Hives Verified 11/08/19 13:31 [From Macrobid] nitrofurantoin Allergy Severe Rash/Hives Verified 11/08/19 13:31 macrocrystalline [From Macrobid] sulfamethoxazole Allergy Severe Rash/Hives Verified 11/08/19 13:31 [From Bactrim] trimethoprim [From Bactrim] Allergy Severe Rash/Hives Verified 11/08/19 13:31 hydromorphone HCl AdvReac Severe Nausea & Verified 11/08/19 13:31 [From Dilaudid] Vomiting Physical Exam Vitals: Vital Signs Temp Pulse Pulse Resp BP BP Pulse Ox 11/09/19 07:00 97.8 F 88 17 119/73 93 L 11/09/19 02:20 98.2 F 85 18 99/59 93 L 11/08/19 19:18 98.0 F 76 18 114/71 97 11/08/19 15:23 97.7 F 78 16 111/72 97 11/08/19 14:20 97.6 F 76 18 101/72 98 11/08/19 14:00 74 18 99/64 95 11/08/19 13:40 68 18 98/71 96 11/08/19 13:20 75 18 94/57 94 L Intake and Output 11/08/19 11/09/19 11/09/19 22:59 06:59 14:59 Intake Total 750 600 Balance 750 600 Intake: IV 600 Sodium Chloride 0.9% 1, 600 000 ml @ 75 mls/hr IV . [id number] ONE Rx#:[id number] Intake, IV Titration 750 Amount Sodium Chloride 0.9% 1, 750 000 ml @ 75 mls/hr IV . [id number] ONE Rx#:[id number] Other: Voiding Method Toilet # Voids 1 2 1 # Bowel Movements 1 Weight 86.183 kg On physical examination, patient appears comfortable in no apparent distress. HEAD: Normocephalic, atraumatic. EYES: No scleral icterus. No conjunctival injection. MOUTH: No lesions, tongue midline. NECK: Trachea midline, no gross abnormalities. CHEST: Clear to auscultation with no wheezing or rhonchi appreciated. HEART: Regular rate and rhythm. ABDOMEN: Soft, obese. Bowel sounds are positive. No organomegaly. No guarding or rigidity. EXTREMITIES: No pedal edema. SKIN: No rashes, no jaundice. NEUROLOGIC: Alert and oriented x3. No focal deficits. Results CBC & Chem 7: 11/10/19 06:43 11/09/19 07:09 Labs: Abnormal Lab Results - Last 24 Hours (Table) 11/08/19 11/09/19 11/09/19 Range/Units 12:20 07:09 07:09 WBC 3.3 L (3.8-10.6) k/uL MCHC 30.6 L (31.0-37.0) g/dL Plt Count 89 L (150-450) k/uL Lymphocytes # 0.9 L (1.0-4.8) k/uL Chloride 114 H (98-107) mmol/L Carbon Dioxide 18 L 21 L (22-30) mmol/L BUN 45 H 35 H (7-17) mg/dL Creatinine 2.24 H 2.00 H (0.52-1.04) mg/dL Glucose 134 H (74-99) mg/dL Calcium 8.2 L 8.0 L (8.4-10.2) mg/dL Total Protein 5.4 L (6.3-8.2) g/dL Albumin 3.0 L (3.5-5.0) g/dL Chest x-ray: report reviewed (Minimal segmental atelectasis on chest x-ray) Assessment and Plan (1) Gastrointestinal hemorrhage Narrative/Plan: 74-year-old female with multiple medical comorbidities including atrial fibrillation on anticoagulation therapy and a stated history of colitis who p resents reporting multiple episodes of loose bowel movements initially without blood and then bright red blood per rectum. Unclear if this is secondary to a flare of her colitis, hemorrhoidal in nature given the stability of her hemoglobin, related to an acute infection or other etiology. Current Visit: Yes Status: Acute Code(s): K92.2 - GASTROINTESTINAL HEMORRHAGE, UNSPECIFIED SNOMED Code(s): 01372654 (2) Diarrhea Current Visit: Yes Status: Acute Code(s): R19.7 - DIARRHEA, UNSPECIFIED SNOMED Code(s): 45662760 (3) Colitis Narrative/Plan: 74-year-old with a stated history of colitis, she is unclear as to the details of her colitis, duration, prior treatments, extensive the disease. Current Visit: Yes Status: Acute Code(s): K52.9 - NONINFECTIVE GASTROENTERITIS AND COLITIS, UNSPECIFIED SNOMED Code(s): 07276827 Plan: Supportive care Clear liquid diet, advance to low fiber low residual as tolerated ESR, CRP, stool studies ordered Clostridium difficile testing ordered a negative We'll start Solu-Medrol 20 mg every 8 hours empirically for possible flare of colitis Loperamide as needed for diarrhea Thank you for allowing us dysphagia in the care of the patient we will continue to follow
[2019-11-10] MEDS: methylPREDNISolone SOD SUCCI 40 MG/ML 1 ML VIAL IV SCH ×3 (12:59→23:20)
--- NOTE | 2019-11-10 18:49 | P.PN ---
Subjective Progress Note Date: 11/10/19 Principal diagnosis: Diarrhea, blood per rectum, colitis Patient is seen lying in bed. Tolerating diet. She did have some loose stool this morning but overall improving. Objective - Vital Signs Vital signs: Vital Signs Temp 97.9 F 11/10/19 14:49 Pulse 62 11/10/19 14:49 Resp 16 11/10/19 14:49 BP 137/74 11/10/19 14:49 Pulse Ox 96 11/10/19 14:49 Intake & Output 11/09/19 11/10/19 11/10/19 18:59 06:59 18:59 Intake Total 600 Balance 600 Intake: IV 600 Sodium Chloride 0.9% 1, 600 000 ml @ 75 mls/hr IV . [id number] ONE Rx#:[id number] Other: Voiding Method Toilet # Voids 1 2 # Bowel Movements 1 1 - Exam On physical examination, patient appears comfortable in no apparent distress. HEAD: Normocephalic, atraumatic. EYES: No scleral icterus. No conjunctival injection. MOUTH: No lesions, tongue midline. NECK: Trachea midline, no gross abnormalities. ABDOMEN: Soft. Bowel sounds are positive. No organomegaly. No guarding or rigidity. EXTREMITIES: No pedal edema. SKIN: No rashes, no jaundice. NEUROLOGIC: Alert and oriented x3. No focal deficits. - Labs CBC & Chem 7: 11/10/19 06:43 11/09/19 07:09 Labs: Abnormal Lab Results - Last 24 Hours (Table) 11/09/19 11/10/19 Range/Units 18:10 06:43 WBC 2.4 L (3.8-10.6) k/uL Plt Count 88 L (150-450) k/uL Neutrophils # 1.2 L (1.3-7.7) k/uL Lymphocytes # 0.8 L (1.0-4.8) k/uL Stool Lactoferrin POSITIVE H (NEGATIVE) Microbiology - Last 24 Hours (Table) 11/09/19 18:10 Stool Culture - Preliminary Stool Assessment and Plan (1) Gastrointestinal hemorrhage Narrative/Plan: 74-year-old female with multiple medical comorbidities including atrial fibrillation on anticoagulation therapy and a stated history of colitis who presents reporting multiple episodes of loose bowel movements initially without blood and then bright red blood per rectum. Unclear if this is secondary to a flare of her colitis, hemorrhoidal in nature given the stability of her hemoglobin, related to an acute infection or other etiology. Current Visit: Yes Status: Acute Code(s): K92.2 - GASTROINTESTINAL HEMORRHAGE, UNSPECIFIED SNOMED Code(s): 39112004 (2) Diarrhea Current Visit: Yes Status: Acute Code(s): R19.7 - DIARRHEA, UNSPECIFIED SNOMED Code(s): 22851545 (3) Colitis Narrative/Plan: 74-year-old with a stated history of colitis, she is unclear as to the details of her colitis, duration, prior treatments, extensive the disease. Current Visit: Yes Status: Acute Code(s): K52.9 - NONINFECTIVE GASTROE NTERITIS AND COLITIS, UNSPECIFIED SNOMED Code(s): 65185806 Plan: Supportive care Clear liquid diet, advance to low fiber low residual as tolerated ESR, CRP, stool studies ordered Clostridium difficile testing ordered a negative, stool lactoferrin positive Solu-Medrol 20 mg every 8 hours empirically for possible flare of colitis Loperamide as needed for diarrhea Thank you for allowing us dysphagia in the care of the patient we will continue to follow
[2019-11-10] MEDS ORDERED: PREGABALIN 100 MG CAP PO STA (22:13)
[2019-11-11] MEDS: LEVOTHYROXINE 88 MCG TAB PO SCH (05:41)
[2019-11-11] MEDS: methylPREDNISolone SOD SUCCI 40 MG/ML 1 ML VIAL IV SCH ×2 (08:10→17:36)
[2019-11-11] MEDS: METOPROLOL TARTRATE 50 MG TAB PO SCH ×3 (08:11→19:51)
[2019-11-11] MEDS: ALLOPURINOL 100 MG TAB PO SCH ×3 (08:11→19:51)
[2019-11-11] MEDS: BALSALAZIDE DISODIUM 750 MG CAPSULE PO SCH ×3 (08:11→19:51)
[2019-11-11] MEDS: CALCIUM CARB-VIT D 500MG-200UN 1 EACH TAB PO SCH (08:11)
[2019-11-11] MEDS: METOPROLOL TARTRATE 25 MG TAB PO SCH ×3 (08:11→19:51)
--- NOTE | 2019-11-11 17:41 | P.PN ---
Subjective Progress Note Date: 11/11/19 Principal diagnosis: Diarrhea, blood per rectum, colitis Patient is seen lying in bed. Tolerating diet. She is reporting decreased frequency of bowel movements with no further blood per rectum, overall symptoms are improving. Objective - Vital Signs Vital signs: Vital Signs Temp 97.5 F L 11/11/19 07:00 Pulse 77 11/11/19 07:00 Resp 16 11/11/19 07:00 BP 121/78 11/11/19 07:00 Pulse Ox 98 11/11/19 07:00 Intake & Output 11/10/19 11/11/19 11/11/19 18:59 06:59 18:59 Other: Voiding Method Toilet # Voids 2 3 # Bowel Movements 1 - Exam On physical examination, patient appears comfortable in no apparent distress. HEAD: Normocephalic, atraumatic. EYES: No scleral icterus. No conjunctival injection. MOUTH: No lesions, tongue midline. NECK: Trachea midline, no gross abnormalities. ABDOMEN: Soft. Bowel sounds are positive. No organomegaly. No guarding or rigidity. EXTREMITIES: No pedal edema. SKIN: No rashes, no jaundice. NEUROLOGIC: Alert and oriented x3. No focal deficits. - Labs CBC & Chem 7: 11/10/19 06:43 11/09/19 07:09 Labs: Abnormal Lab Results - Last 24 Hours (Table) 11/11/19 Range/Units 05:51 C-Reactive Protein 26.9 H (<10.0) mg/L Assessment and Plan (1) Gastrointestinal hemorrhage Narrative/Plan: 74-year-old female with multiple medical comorbidities including atrial fibrillation on anticoagulation therapy and a stated history of colitis who presents reporting multiple episodes of loose bowel movements initially without blood and then bright red blood per rectum. Unclear if this is secondary to a flare of her colitis, hemorrhoidal in nature given the stability of her hemoglobin, related to an acute infection or other etiology. Current Visit: Yes Status: Acute Code(s): K92.2 - GASTROINTESTINAL HEMORRHAGE, UNSPECIFIED SNOMED Code(s): 98366019 (2) Diarrhea Current Visit: Yes Status: Acute Code(s): R19.7 - DIARRHEA, UNSPECIFIED SN OMED Code(s): 86438354 (3) Colitis Narrative/Plan: 74-year-old with a stated history of colitis, she is unclear as to the details of her colitis, duration, prior treatments, extensive the disease. Current Visit: Yes Status: Acute Code(s): K52.9 - NONINFECTIVE GASTR OENTERITIS AND COLITIS, UNSPECIFIED SNOMED Code(s): 54353512 Plan: Supportive care Low fiber low residual as tolerated ESR normal and CRP only mildly elevated, we'll repeat tomorrow Clostridium difficile testing ordered a negative, stool lactoferrin positive Solu-Medrol 20 mg every 8 hours empirically for possible flare of colitis, would recommend taper of steroids upon discharge with 40 mg for 7 days, 30 mg for 7 days, 20 mg for 7 days, 10 mg for 7 days, and then 5 mg for 7 days Loperamide as needed for diarrhea Thank you for allowing us dysphagia in the care of the patient we will continue to follow
[2019-11-11] MEDS: PREGABALIN 100 MG CAP PO SCH (19:51)
[2019-11-12] MEDS: methylPREDNISolone SOD SUCCI 40 MG/ML 1 ML VIAL IV SCH (00:09)
--- NOTE | 2019-11-12 00:22 | P.PN ---
Subjective Progress Note Date: 11/09/19 Principal diagnosis: Bloody diarrhea due to colitis Patient is a 74-year-old female with a known history of colitis, atrial fibrillation currently on anticoagulation with Coumadin, history of cardioversion, obstructive sleep apnea, hypothyroidism, rheumatoid arthritis and fibromyalgia came to ER with complaints of nausea vomiting and diarrhea yesterday and continued throughout the night. Patient did take Lomotil at home which seemed to improve the diarrhea but patient noticed that she was started having bright red blood per rectum today morning. Denied complaints of abdo christina pain. No fever no chills. No complaints of chest pain or shortness of breath. No headache or dizziness or lightheadedness. Patient does take Coumadin due to atrial fibrillation. INR is 2.5., Hemoglobin 12.8 BUN and 45 and creatinine 2.25 Troponin 1 negative. EKG showed atrial fibrillation with pacemaker 11/09/2019 Patient is complaining of dark-colored stools again today. Loose bowel movements. No complaints of abdominal pain or cramps. Hemoglobin is fairly stable otherwise. ESR and CRP were ordered. Possible inflammatory colitis versus infectious etiology cannot be excluded at this time. Stool studies including stool lactoferrin and C. diff toxin was ordered. C. diff negative. Gastroenterology has seen the patient. Plan to start on IV steroids. Current medications reviewed. Objective - Vital Signs Vital signs: Vital Signs Temp 98.2 F 11/09/19 19:26 Pulse 80 11/09/19 19:27 Resp 16 11/09/19 19:27 BP 131/68 11/09/19 20:46 Pulse Ox 96 11/09/19 19:26 Intake & Output 11/09/19 11/09/19 11/10/19 06:59 18:59 06:59 Intake Total 750 600 Balance 750 600 Intake: IV 600 Sodium Chloride 0.9% 1, 600 000 ml @ 75 mls/hr IV . [id number] ONE Rx#:[id number] Intake, IV Titration 750 Amount Sodium Chloride 0.9% 1, 750 000 ml @ 75 mls/hr IV . [id number] ONE Rx#:[id number] Other: Voiding Method Toilet Toilet # Voids 2 1 1 # Bowel Movements 1 1 - Exam PHYSICAL EXAMINATION: Patient is lying in the bed comfortably, no acute distress, awake alert and oriented.. HEENT: Normocephalic. Neck is supple. Pupils reactive. Nostrils clear. Oral cavity is moist. Ears reveal no drainage. Neck reveals no JVD, carotid bruits, or thyromegaly. CHEST EXAMINATION: Trachea is central. Symmetrical expansion. Right basilar diminished air entry. Lung brenner clear to auscultation and percussion. CARDIAC: Normal S1, S2 with no gallops. No murmurs ABDOMEN: Soft. Bowel sounds normal. No organomegaly. No abdominal bruits. Extremities: reveal no edema. No clubbing or cyanosis Neurologically awake, alert, oriented x3 with well-coordinated movements. No focal deficits noted Skin: No rash or skin lesions. Psychiatric: Coperative. Nonsuicidal Musculoskeletal: No joint swelling or deformity. Normal range of motion. - Labs CBC & Chem 7: 11/10/19 06:43 11/09/19 07:09 Labs: Abnormal Lab Results - Last 24 Hours (Table) 11/09/19 11/09/19 Range/Units 07:09 07:09 WBC 3.3 L (3.8-10.6) k/uL MCHC 30.6 L (31.0-37.0) g/dL Plt Count 89 L (150-450) k/uL Lymphocytes # 0.9 L (1.0-4.8) k/uL Chloride 114 H (98-107) mmol/L Carbon Dioxide 21 L (22-30) mmol/L BUN 35 H (7-17) mg/dL Creatinine 2.00 H (0.52-1.04) mg/dL Calcium 8.0 L (8.4-10.2) mg/dL Assessment and Plan Assessment: Bright red blood per rectum. Likely lower GI bleed History of colitis. Possible inflammatory colitis versus acute infectious colitis. Chronic atrial fibrillation. History of cardioversion. Currently on anticoagulation with Eliquis. Hypothyroidism Objective sleep apnea on CPAP Hypertension Osteoarthritis Asthma stable Post polio syndrome Aortic regurgitation Depression Plan: Patient will be continued on gentle hydration and monitor H&H closely. Coumadin is on hold. Currently no active bleeding. Continue with telemetry monitoring. Gastroenterology service is following.. Continue the home medications and further recommendations based on the clinical course. Time with Patient: Greater than 30
--- NOTE | 2019-11-12 00:23 | P.PN ---
Subjective Progress Note Date: 11/10/19 Principal diagnosis: Bloody diarrhea due to colitis Patient is a 74-year-old female with a known history of colitis, atrial fibrillation currently on anticoagulation with Coumadin, history of cardioversion, obstructive sleep apnea, hypothyroidism, rheumatoid arthritis and fibromyalgia came to ER with complaints of nausea vomiting and diarrhea yesterday and continued throughout the night. Patient did take Lomotil at home which seemed to improve the diarrhea but patient noticed that she was started having bright red blood per rectum today morning. Denied complaints of abdo christina pain. No fever no chills. No complaints of chest pain or shortness of breath. No headache or dizziness or lightheadedness. Patient does take Coumadin due to atrial fibrillation. INR is 2.5., Hemoglobin 12.8 BUN and 45 and creatinine 2.25 Troponin 1 negative. EKG showed atrial fibrillation with pacemaker 11/09/2019 Patient is complaining of dark-colored stools again today. Loose bowel movements. No complaints of abdominal pain or cramps. Hemoglobin is fairly stable otherwise. ESR and CRP were ordered. Possible inflammatory colitis versus infectious etiology cannot be excluded at this time. Stool studies including stool lactoferrin and C. diff toxin was ordered. C. diff negative. Gastroenterology has seen the patient. Plan to start on IV steroids. 11/10/2019 Patient did have some improvement in bowel movements. Still had loose bowel movement today morning. Patient is being continued on IV steroids for colitis. Hemoglobin is stable. Gastroenterology is following. C. diff toxin is negative. ESR and CRP level pending. Lactoferrin positive. Current medications reviewed. Objective - Vital Signs Vital signs: Vital Signs Temp 98.2 F 11/10/19 18:56 Pulse 91 11/10/19 18:56 Resp 18 11/10/19 18:56 BP 130/79 11/10/19 18:56 Pulse Ox 95 11/10/19 18:56 Intake & Output 11/10/19 11/10/19 11/11/19 06:59 18:59 06:59 Other: Voiding Method Toilet Toilet # Voids 2 2 1 # Bowel Movements 1 1 - Exam PHYSICAL EXAMINATION: Patient is lying in the bed comfortably, no acute distress, awake alert and oriented.. HEENT: Normocephalic. Neck is supple. Pupils reactive. Nostrils clear. Oral cavity is moist. Ears reveal no drainage. Neck reveals no JVD, carotid bruits, or thyromegaly. CHEST EXAMINATION: Trachea is central. Symmetrical expansion. Right basilar diminished air entry. Lung brenner clear to auscultation and percussion. CARDIAC: Normal S1, S2 with no gallops. No murmurs ABDOMEN: Soft. Bowel sounds normal. No organomegaly. No abdominal bruits. Extremities: reveal no edema. No clubbing or cyanosis Neurologically awake, alert, oriented x3 with well-coordinated movements. No focal deficits noted Skin: No rash or skin lesions. Psychiatric: Coperative. Nonsuicidal Musculoskeletal: No joint swelling or deformity. Normal range of motion. - Labs CBC & Chem 7: 11/10/19 06:43 11/09/19 07:09 Labs: Abnormal Lab Results - Last 24 Hours (Table) 11/09/19 11/10/19 Range/Units 18:10 06:43 WBC 2.4 L (3.8-10.6) k/uL Plt Count 88 L (150-450) k/uL Neutrophils # 1.2 L (1.3-7.7) k/uL Lymphocytes # 0.8 L (1.0-4.8) k/uL Stool Lactoferrin POSITIVE H (NEGATIVE) Microbiology - Last 24 Hours (Table) 11/09/19 18:10 Stool Culture - Preliminary Stool Assessment and Plan Assessment: Bright red blood per rectum. Likely lower GI bleed History of colitis. Possible inflammatory colitis versus acute infectious colitis. Chronic atrial fibrillation. History of cardioversion. Currently on anticoagulation with Eliquis. Hypothyroidism Objective sleep apnea on CPAP Hypertension Osteoarthritis Asthma stable Post polio syndrome Aortic regurgitation Depression Plan: Patient will be continued on gentle hydration and monitor H&H closely. Coumadin is on hold. Currently no active bleeding. Continue with telemetry monitoring. Gastroenterology service is following.. Continue the home medications and further recommendations based on the clinical course. Time with Patient: Greater than 30
--- NOTE | 2019-11-12 00:26 | P.PN ---
Subjective Progress Note Date: 11/11/19 Principal diagnosis: Bloody diarrhea due to colitis Patient is a 74-year-old female with a known history of colitis, atrial fibrillation currently on anticoagulation with Coumadin, history of cardioversion, obstructive sleep apnea, hypothyroidism, rheumatoid arthritis and fibromyalgia came to ER with complaints of nausea vomiting and diarrhea yesterday and continued throughout the night. Patient did take Lomotil at home which seemed to improve the diarrhea but patient noticed that she was started having bright red blood per rectum today morning. Denied complaints of abdo christina pain. No fever no chills. No complaints of chest pain or shortness of breath. No headache or dizziness or lightheadedness. Patient does take Coumadin due to atrial fibrillation. INR is 2.5., Hemoglobin 12.8 BUN and 45 and creatinine 2.25 Troponin 1 negative. EKG showed atrial fibrillation with pacemaker 11/09/2019 Patient is complaining of dark-colored stools again today. Loose bowel movements. No complaints of abdominal pain or cramps. Hemoglobin is fairly stable otherwise. ESR and CRP were ordered. Possible inflammatory colitis versus infectious etiology cannot be excluded at this time. Stool studies including stool lactoferrin and C. diff toxin was ordered. C. diff negative. Gastroenterology has seen the patient. Plan to start on IV steroids. 11/10/2019 Patient did have some improvement in bowel movements. Still had loose bowel movement today morning. Patient is being continued on IV steroids for colitis. Hemoglobin is stable. Gastroenterology is following. C. diff toxin is negative. ESR and CRP level pending. Lactoferrin positive. 11/11/2019 Patient says that she did not have a pulmonary today. Feels better. Patient was on IV site without 20 mg every 8 currently changed to by mouth. Gastroenterology is following. ESR is 8 not elevated and CRP level is 26. Low fiber low-residue diet was recommended by GI. Solu-Medrol 20 mg every 8 hours empirically for possible flare of colitis, would recommend taper of steroids upon discharge with 40 mg for 7 days, 30 mg for 7 days, 20 mg for 7 days, 10 mg for 7 days, and then 5 mg for 7 days Loperamide as needed for diarrhea Coumadin to be restarted once cleared by GI. Current medications reviewed. Objective - Vital Signs Vital signs: Vital Signs Temp 98.2 F 11/11/19 15:00 Pulse 69 11/11/19 15:00 Resp 18 11/11/19 15:00 BP 143/90 11/11/19 15:00 Pulse Ox 93 L 11/11/19 15:00 Intake & Output 11/10/19 11/11/19 11/11/19 18:59 06:59 18:59 Other: Voiding Method Toilet # Voids 2 3 # Bowel Movements 1 - Exam PHYSICAL EXAMINATION: Patient is lying in the bed comfortably, no acute distress, awake alert and oriented.. HEENT: Normocephalic. Neck is supple. Pupils reactive. Nostrils clear. Oral cavity is moist. Ears reveal no drainage. Neck reveals no JVD, carotid bruits, or thyromegaly. CHEST EXAMINATION: Trachea is central. Symmetrical expansion. Right basilar diminished air entry. Lung brenner clear to auscultation and percussion. CARDIAC: Normal S1, S2 with no gallops. No murmurs ABDOMEN: Soft. Bowel sounds normal. No organomegaly. No abdominal bruits. Extremities: reveal no edema. No clubbing or cyanosis Neurologically awake, alert, oriented x3 with well-coordinated movements. No focal deficits noted Skin: No rash or skin lesions. Psychiatric: Coperative. Nonsuicidal Musculoskeletal: No joint swelling or deformity. Normal range of motion. - Labs CBC & Chem 7: 11/10/19 06:43 11/09/19 07:09 Labs: Abnormal Lab Results - Last 24 Hours (Table) 11/11/19 Range/Units 05:51 C-Reactive Protein 26.9 H (<10.0) mg/L Assessment and Plan Assessment: Bright red blood per rectum. Likely lower GI bleed. Hemoglobin is stable. History of colitis. Possible inflammatory colitis versus acute infectious colitis. Diarrhea improved now. Chronic atrial fibrillation. History of cardioversion. Currently on anticoagulation with Eliquis. Hypothyroidism Objective sleep apnea on CPAP Hypertension Osteoarthritis Asthma stable Post polio syndrome Aortic regurgitation Depression Plan: Patient will be continued on gentle hydration and monitor H&H closely. Coumadin is on hold. Currently no active bleeding. Continue with telemetry monitoring. Gastroenterology service is following. Tapering dose of steroids was ordered.. Continue the home medications and further recommendations based on the clinical course. Time with Patient: Greater than 30
[2019-11-12] MEDS: LEVOTHYROXINE 88 MCG TAB PO SCH (05:05)
[2019-11-12] MEDS: METOPROLOL TARTRATE 50 MG TAB PO SCH ×3 (08:05→21:45)
[2019-11-12] MEDS: predniSONE 20 MG TAB PO SCH (08:05)
[2019-11-12] MEDS: PREGABALIN 100 MG CAP PO SCH ×2 (08:06→21:45)
[2019-11-12] MEDS: CALCIUM CARB-VIT D 500MG-200UN 1 EACH TAB PO SCH (08:06)
[2019-11-12] MEDS: ALLOPURINOL 100 MG TAB PO SCH ×3 (08:06→21:44)
[2019-11-12] MEDS: METOPROLOL TARTRATE 25 MG TAB PO SCH ×3 (08:06→21:45)
[2019-11-12] MEDS: BALSALAZIDE DISODIUM 750 MG CAPSULE PO SCH ×3 (08:07→21:48)
--- NOTE | 2019-11-12 15:35 | P.PN ---
Subjective From the records Patient is a 74-year-old female with a known history of colitis, atrial fibrillation currently on anticoagulation with Coumadin, history of cardioversion, obstructive sleep apnea, hypothyroidism, rheumatoid arthritis and fibromyalgia came to ER with complaints of nausea vomiting and diarrhea yesterday and continued throughout the night. Patient did take Lomotil at home which seemed to improve the diarrhea but patient noticed that she was started having bright red blood per rectum today morning. Denied complaints of abdomina l pain. No fever no chills. No complaints of chest pain or shortness of breath. No headache or dizziness or lightheadedness. Patient does take Coumadin due to atrial fibrillation. INR is 2.5., Hemoglobin 12.8 BUN and 45 and creatinine 2.25 Troponin 1 negative. EKG showed atrial fibrillation with pacemaker 11/09/2019 Patient is complaining of dark-colored stools again today. Loose bowel mo vements. No complaints of abdominal pain or cramps. Hemoglobin is fairly stable otherwise. ESR and CRP were ordered. Possible inflammatory colitis versus infectious etiology cannot be excluded at this time. Stool studies including stool lactoferrin and C. diff toxin was ordered. C. diff negative. Gastroenterology has seen the patient. Plan to start on IV steroids. 11/10/2019 Patient did have some improvement in bowel movements. Still had loose bowel movement today morning. Patient is being continued on IV steroids for colitis. Hemoglobin is stable. Gastroenterology is following. C. diff toxin is negative. ESR and CRP level pending. Lactoferrin positive. 11/11/2019 Patient says that she did not have a pulmonary today. Feels better. Patient was on IV site without 20 mg every 8 currently changed to by mouth. Gastroenterology is following. ESR is 8 not elevated and CRP level is 26. Low fiber low-residue diet was recommended by GI. Solu-Medrol 20 mg every 8 hours empirically for possible flare of colitis, would recommend taper of steroids upon discharge with 40 mg for 7 days, 30 mg for 7 days, 20 mg for 7 days, 10 mg for 7 days, and then 5 mg for 7 days Loperamide as needed for diarrhea Coumadin to be restarted once cleared by GI. Subjective 11/12/2018 Today patient has no nausea vomiting, no abdominal pain, she still have some loose bowel movement about twice per day. IV fluids were stopped. The patient was started on prednisone 40 mg. Patient will need tapering dose as per primary doctor tomorrow Objective - Vital Signs Vital signs: Vital Signs Temp 98 F 11/12/19 13:37 Pulse 75 11/12/19 13:37 Resp 16 11/12/19 13:37 BP 144/87 11/12/19 13:37 Pulse Ox 92 L 11/12/19 13:37 Intake & Output 11/11/19 11/12/19 11/12/19 18:59 06:59 18:59 Other: Voiding Method Toilet Toilet # Voids 2 1 # Bowel Movements 1 1 - Exam Patient is lying in the bed comfortably, no acute distress, awake alert and oriented.. HEENT: Normocephalic. Neck is supple. Pupils reactive. Nostrils clear. Oral cavity is moist. Ears reveal no drainage. Neck reveals no JVD, carotid bruits, or thyromegaly. CHEST EXAMINATION: Trachea is central. Symmetrical expansion. Right basilar diminished air entry. Lung brenner clear to auscultation and percussion. CARDIAC: Normal S1, S2 with no gallops. No murmurs ABDOMEN: Soft. Bowel sounds normal. No organomegaly. No abdominal bruits. Extremities: reveal no edema. No clubbing or cyanosis Neurologically awake, alert, oriented x3 with well-coordinated movements. No focal deficits noted Skin: No rash or skin lesions. Psychiatric: Coperative. Nonsuicidal Musculoskeletal: No joint swelling or deformity. Normal range of motion. - Labs CBC & Chem 7: 11/10/19 06:43 11/09/19 07:09 Labs: Abnormal Lab Results - Last 24 Hours (Table) 11/12/19 Range/Units 06:59 C-Reactive Protein 12.9 H (<10.0) mg/L Microbiology - Last 24 Hours (Table) 11/09/19 18:10 Stool Culture - Preliminary Stool Assessment and Plan Assessment: Bright red blood per rectum. Likely lower GI bleed. Hemoglobin is stable. History of colitis. Possible inflammatory colitis versus acute infectious colitis. Diarrhea improved now. Chronic atrial fibrillation. History of cardioversion. Currently on anticoagulation with Eliquis. Hypothyroidism Objective sleep apnea on CPAP Hypertension Osteoarthritis Asthma stable Post polio syndrome Aortic regurgitation Depression Plan: This is a pleasant 74 years old female who presents with gastrointestinal symptoms. GI team are following the patient and family recommendation. Of the fluid was discontinued. Continue with prednisone. Pain management. Monitor hemoglobin Labs and medication were reviewed.. Continue same treatment. Continue with symptomatic treatment. Resume home medication. Monitor lytes and vitals. DVT and GI prophylaxis. Further recommendations of the clinical course of the patient DVT prophylaxis: No heparin for possible GI bleed GI Prophylaxis: Protonix Prognosis is guarded
--- NOTE | 2019-11-12 16:17 | PN ---
PROGRESS NOTE DATE OF DICTATION: November 12, 2019 REQUESTING PHYSICIAN: Dr. Johnny To Patient is a 74 -year-old pleasant white female admitted to the hospital with acute onset of acute bloody diarrhea/exacerbation of colitis. The patient, in the past, was diagnosed with collagenous colitis about 15 years ago and has been maintained on Lialda and has been doing extremely well. She went on a cruise and on her way back had severe diarrhea. Because of possible exacerbation of colitis, she was started on IV Solu- Medrol, which was changed to prednisone 40 mg Tuesday; she is feeling much better. She had only one bowel movement; no further bleeding. No abdominal pain. PHYSICAL EXAMINATION: She appears comfortable. No apparent distress. VITAL SIGNS: Stable. Blood pressure is 144/86, pulse rate 92, and afebrile. HEENT EXAMINATION: Unremarkable. Conjunctivae pink. Sclerae anicteric. Oral cavity no lesions. NECK: No JVD or lymph node enlargement. CHEST: Clear to auscultation. HEART: Regular rate and rhythm. ABDOMEN: Soft. Bowel sounds are positive. No organomegaly. EXTREMITIES: No pedal edema. NEUROLOGIC: Alert and oriented x 3. No focal deficits. LABS: From today, WBC 2.4, hemoglobin 12.1, platelets are 88,000. The rest of the labs are within normal limits. Total lactoferrin is positive. C-difficile toxin is negative. Cultures so far have been negative. IMPRESSION: Acute onset of bloody diarrhea, possible infectious colitis but possibility of exacerbation of collagenous colitis could not be excluded. It is unlikely to see bleeding with collagenous colitis, but the patient did respond to ___ IV steroids, presently on prednisone 40 mg daily and doing much better. Abdominal pain, diarrhea, and bleeding have resolved. Stool studies have also been negative. RECOMMENDATIONS: 1. Continue with prednisone 40 mg daily, and she was advised to taper it by 10 mg every week. 2. Advance diet as tolerated. 3. She can be discharged home today with an outpatient followup in 2-3 weeks. Thank you for this consultation. MMCARINAL / AMYN: [id number] /
[2019-11-13] MEDS: LEVOTHYROXINE 88 MCG TAB PO SCH (06:30)
[2019-11-13] MEDS: BALSALAZIDE DISODIUM 750 MG CAPSULE PO SCH (09:52)
[2019-11-13] MEDS: METOPROLOL TARTRATE 50 MG TAB PO SCH (09:53)
[2019-11-13] MEDS: predniSONE 20 MG TAB PO SCH (09:53)
[2019-11-13] MEDS: ALLOPURINOL 100 MG TAB PO SCH (09:53)
[2019-11-13] MEDS: METOPROLOL TARTRATE 25 MG TAB PO SCH (09:53)
[2019-11-13] MEDS: CALCIUM CARB-VIT D 500MG-200UN 1 EACH TAB PO SCH (09:53)
[2019-11-13 12:25] VITALS: BP 129/81; PULSE 73; RESP 20; TEMP 97.5
[2019-11-13] MEDS: PREGABALIN 100 MG CAP PO SCH (15:12)
--- NOTE | 2019-11-13 16:41 | P.DS ---
Providers Date of admission: 11/10/19 13:01 Expected date of discharge: 11/13/19 Attending physician: Johnny To Consults: 11/08/19 14:14 Consult Physician Urgent Consulting Provider: John Sandoval Consult Reason/Comments: GI bleed Do you want consulting provider notified?: Yes Primary care physician: Johnny To Hospital Course: 74-year-old female presented to the emergency room with diarrhea of bloody patient on Coumadin secondary to atrial fibrillation. Patient was evaluated by gastroenterology and discharged home on prednisone taper Rectal bleeding lowered GI bleed history of colitis Inflammatory colitis Chronic persistent atrial fibrillation Hypothyroidism Sleep apnea on CPAP Hypertension Osteoarthritis Asthma Post polio syndrome Depression Plan Prednisone taper follow-up with gastroenterology and family physician Dr. Turner Patient Condition at Discharge: Stable Plan - Discharge Summary Discharge Rx Participant: Yes New Discharge Prescriptions: New predniSONE 10 mg PO DAILY #70 tab Continue Calcium Citrate/Vitamin D3 [Calcium Citrate - Vit D3 Tab] 1 tab PO DAILY Loperamide [Imodium] 4 mg PO DAILY Mesalamine [Lialda] 1.2 gm PO BID Levothyroxine Sodium [Synthroid] 88 mcg PO DAILY Acetaminophen [Tylenol Extra Strength] 500 mg PO DAILY PRN PRN Reason: Pain Omeprazole [PriLOSEC] 20 mg PO AC-BRKFST PRN PRN Reason: Dyspepsia Allopurinol [Zyloprim] 100 mg PO TID Pregabalin [Lyrica] 200 mg PO BID Simply Right Mature Women 1 tab PO DAILY Metoprolol Tartrate [Lopressor] 25 mg PO TID Metoprolol Tartrate [Lopressor] 50 mg PO TID Ferrous Sulfate [Iron (65 MG Elemental)] 325 mg PO DAILY Fluticasone Nasal [place] [Flonase Nasal [place]] 2 spr EA NOSTRIL DAILY PRN PRN Reason: Allergy Symptoms Diphenox-Atrop 2.5-0.025 mg [Lomotil] 2 tab PO HS Keybiotics 1 tab PO DAILY Discontinued Warfarin [Coumadin] 3 mg PO SUTUTHSA Warfarin [Coumadin] 2 mg PO MOWEFR Cephalexin [Keflex] 500 mg PO Q12HR Discharge Medication List Calcium Citrate/Vitamin D3 [Calcium Citrate - Vit D3 Tab] 1 tab PO DAILY 04/08/14 [History] Levothyroxine Sodium [Synthroid] 88 mcg PO DAILY 04/08/14 [History] Loperamide [Imodium] 4 mg PO DAILY 04/08/14 [History] Mesalamine [Lialda] 1.2 gm PO BID 04/08/14 [History] Acetaminophen [Tylenol Extra Strength] 500 mg PO DAILY PRN 08/01/18 [History] Allopurinol [Zyloprim] 100 mg PO TID 08/01/18 [History] Omeprazole [PriLOSEC] 20 mg PO AC-BRKFST PRN 08/01/18 [History] Pregabalin [Lyrica] 200 mg PO BID 08/08/18 [History] Diphenox-Atrop 2.5-0.025 mg [Lomotil] 2 tab PO HS 11/08/19 [History] Ferrous Sulfate [Iron (65 MG Elemental)] 325 mg PO DAILY 11/08/19 [History] Fluticasone Nasal [place] [Flonase Nasal [place]] 2 spr EA NOSTRIL DAILY PRN 11/08/19 [History] Keybiotics 1 tab PO DAILY 11/08/19 [History] Metoprolol Tartrate [Lopressor] 25 mg PO TID 11/08/19 [History] Metoprolol Tartrate [Lopressor] 50 mg PO TID 11/08/19 [History] Simply Right Mature Women 1 tab PO DAILY 11/08/19 [History] predniSONE 10 mg PO DAILY #70 tab 11/13/19 [Rx] Follow up Appointment(s)/Referral(s): Johnny To MD [Primary Care Provider] - 1-2 days Karine Isaac MD [STAFF PHYSICIAN] - 2 Weeks Patient Instructions/Handouts: Gastrointestinal Bleeding (DC), Ulcerative Colitis (DC) Activity/Diet/Wound Care/Special Instructions: Follow up with Dr. Riggs tomorrow, November 14 at 9:45am. If you notice blood in your stool call your doctor immediately or go directly to the Emergency Department. Discharge Disposition: HOME SELF-CARE
--- NOTE | 2019-11-13 16:51 | PN ---
PROGRESS NOTE DATE OF DICTATION: 11/13/2019 This patient is a 74-year-old pleasant white female admitted to the hospital with acute bloody diarrhea of 5 days' duration. Symptoms began after she returned from a cruise. She has a history of collagenous colitis. Stool studies were negative. She was treated with empiric steroids and antibiotics and she is doing much better. She wants to go home today. On a regular diet, tolerating well. Had 2 bowel movements. No blood. No abdominal pain. PHYSICAL EXAMINATION: Appears comfortable. No apparent distress. VITAL SIGNS: Stable. Blood pressure is 133/91, heart rate 68 per minute and afebrile. HEENT examination unremarkable. Conjunctivae pink. Sclerae anicteric. Oral cavity no lesions. NECK: No JVD or lymph node enlargement. CHEST: Clear to auscultation. HEART: Regular rate and rhythm. ABDOMEN: Soft. Non-tender. Bowel sounds are positive. No organomegaly. EXTREMITIES: No pedal edema. SKIN: No rashes. NEUROLOGIC: Alert and oriented x3. No focal deficits. LABS: No labs are available from today. IMPRESSION: Acute onset of bloody diarrhea of 5 days' duration, possibly infectious etiology, possibly exacerbation of collagenous colitis. Patient was empirically treated with IV Solu-Medrol. Symptoms improved. She is at present on prednisone 40 mg daily and wants to go home. Doing well. RECOMMENDATIONS: 1. Continue with prednisone 40 mg daily and she was advised to taper it by 10 mg every week. 2. Continue with . 3. Regular diet. 4. Follow up in the office in 3-4 weeks. MMODL / IJN: [id number] /
== END 2019-11-13 15:33 | disposition home or self-care (01) | DRG 392 ==
LOC: EC 11:52 → 4SSUR 14:14 → OBSVTOIN 11-10 13:01 → 6PED 11-13 03:30
PROVIDERS: ADMIT Family Medicine; ATTEND Family Medicine
DX: K52.89 Other specified noninfective gastroenteritis and colitis (principal); I48.19 Other persistent atrial fibrillation; E03.9 Hypothyroidism, unspecified; F32.9 Major depressive disorder, single episode, unspecified; G14 Postpolio syndrome; G47.33 Obstructive sleep apnea (adult) (pediatric); Z99.89 Dependence on other enabling machines and devices; I10 Essential (primary) hypertension; I35.1 Nonrheumatic aortic (valve) insufficiency; J45.909 Unspecified asthma, uncomplicated; Z86.010 Personal history of colon polyps; M06.9 Rheumatoid arthritis, unspecified; M19.90 Unspecified osteoarthritis, unspecified site; M79.7 Fibromyalgia; R32 Unspecified urinary incontinence; Z79.01 Long term (current) use of anticoagulants; Z79.890 Hormone replacement therapy; Z79.899 Other long term (current) drug therapy; Z82.49 Family history of ischemic heart disease and other diseases of the circulatory system; Z80.9 Family history of malignant neoplasm, unspecified; Z95.0 Presence of cardiac pacemaker; Z90.710 Acquired absence of both cervix and uterus; Z90.49 Acquired absence of other specified parts of digestive tract; Z66 Do not resuscitate; Z88.1 Allergy status to other antibiotic agents; Z88.5 Allergy status to narcotic agent; Z88.2 Allergy status to sulfonamides; Z60.2 Problems related to living alone
CPT/HCPCS: 36415; 71045; 80048; 80053; 83605; 83630; 83993; 84484; 85025; 85610; 85652; 85730; 86140; 86850; 86900; 86901; 87045; 87046; 87324; 93005; 96360; 96361; 99285

== ENCOUNTER → 2020-03-25 | Outpatient (CLI) | payer MEDICARE ==
--- NOTE | 2020-03-26 06:52 | US ---
EXAMINATION TYPE: US kidneys/renal and bladder DATE OF EXAM: 03/25/2020 COMPARISON: NONE CLINICAL HISTORY: N39.0 UTI. Patient states having UTI. EXAM MEASUREMENTS: Right Kidney: 6.7 x 3.1 x 3.7 cm Left Kidney: 8.5 x 3.4 x 2.8 cm Right Kidney: Appears small in size. Lower pole cystic appearing lesion = 1.1 x 1.1 x 0.9 cm. Possi ble mild hydronephrosis. Left Kidney: Appears small in size. Medial anechoic lesion at hilum = 2.0 x 1.6 cm. Prominent pyra mids. Cortical thinning. Bladder: distended, anechoic Bilateral Jets not seen There is no evidence for hydronephrosis at this point in time. No nephrolithiasis is seen. No solid masses are identified. The urinary bladder is anechoic. IMPRESSION: 1. Renal atrophic changes. 2. Renal cystic changes as noted.
== END | disposition home or self-care (01) ==
LOC: RADUSWWP 16:14
PROVIDERS: ATTEND Urology
DX: N26.1 Atrophy of kidney (terminal) (principal); Q61.9 Cystic kidney disease, unspecified
CPT/HCPCS: 76770

== ENCOUNTER → 2020-04-26 | Outpatient (CLI) | payer MEDICARE ==
[2020-04-26 12:36] LABS: INR 1.7 (<1.2); Prothrombin Time 16.8 sec (9.0-12.0)
== END | disposition home or self-care (01) ==
LOC: LABMAIN 12:10
PROVIDERS: ATTEND Internal Medicine Endocrinology, Diabetes & Metabolism
DX: I48.91 Unspecified atrial fibrillation (principal)
CPT/HCPCS: 36415; 85610

== ENCOUNTER 2020-04-28 12:02 | Inpatient (IN) | payer MEDICARE ==
[2020-04-28] MEDS ORDERED: SODIUM CHLORIDE 0.9% 1,000 ML IV STA (12:40)
--- NOTE | 2020-04-28 13:13 | XR ---
EXAMINATION TYPE: XR chest 2V DATE OF EXAM: 04/28/2020 COMPARISON: 11/09/2019 TECHNIQUE: PA and lateral views submitted. HISTORY: Back pain FINDINGS: There is atherosclerotic change aorta with bilateral subsegmental areas of consolidation. No overt fa ilure or pneumothorax. No pleural effusion. Degenerative changes of the spine. IMPRESSION: 1. Basilar atelectasis favored over pneumonia correlate clinically.
[2020-04-28 13:18] LABS: Basophils % (A) 0 %; Eosinophils % (A) 1 %; HGB 11.9 gm/dL (11.4-16.0); Hypochromasia Slight; Lymphocytes # (A) 0.7 k/uL (1.0-4.8); Lymphocytes % (A) 16 %; MCH 30.5 pg (25.0-35.0); MCHC 31.4 g/dL (31.0-37.0); Mean Platelet Volume 10.5; Monocytes # (A) 0.4 k/uL (0-1.0); Monocytes % (A) 8 %; Neutrophils # (A) 3.2 k/uL (1.3-7.7); Neutrophils % (A) 74 %; Poikilocytosis Slight; RBC 3.91 m/uL (3.80-5.40); WBC 4.3 k/uL (3.8-10.6)
[2020-04-28 13:21] LABS: Platelet Count 50 k/uL (150-450)
--- NOTE | 2020-04-28 13:26 | ED ---
General Adult HPI - General Source: patient, family, EMS, RN notes reviewed Mode of arrival: EMS Limitations: no limitations <Prakash Tobar - Last Filed: 04/28/20 15:19> <Babak Gandara - Last Filed: 04/28/20 16:07> - General Chief complaint: Recheck/Abnormal Lab/Rx Stated complaint: Low BP Time Seen by Provider: 04/28/20 12:16 - History of Present Illness Initial comments: This is a 74-year-old female presents emergency Department from outpatient surgery Center for hypotension, jaundice weakness. Patient reportedly hasn't started declining since . Patient was evaluated in emergency department there is an diagnosed with urinary tract infection. Patient was placed on antibiotics which cause extreme diarrhea and worsening of her known colitis. Patient has ongoing bladder pain and prolapse rectum. Patient had a biopsy today by Dr. Jack for or bladder pain. They said there was some inflammation. Patient states she just is very fatigued, tired. Patient received 3 L of fluids at surgery Center blood pressure remained hypotensive. Patient denies any known fever or chills denies any headache, blurred vision or any focal weakness (Prakash Tobar) - Related Data Home Medications Medication Instructions Recorded Confirmed Levothyroxine Sodium [Synthroid] 88 mcg PO DAILY 04/08/14 04/28/20 Loperamide [Imodium] 4 mg PO DAILY PRN 04/08/14 04/28/20 Mesalamine [Lialda] 1.2 gm PO BID 04/08/14 04/28/20 Acetaminophen [Tylenol Extra 500 mg PO DAILY PRN 08/01/18 04/28/20 Strength] Omeprazole [PriLOSEC] 20 mg PO AC-BRKFST PRN 08/01/18 04/28/20 allopurinoL [Zyloprim] 100 mg PO TID 08/01/18 04/28/20 Pregabalin [Lyrica] 200 mg PO BID 08/08/18 04/28/20 Diphenox-Atrop 2.5-0.025 mg 2 tab PO HS PRN 11/08/19 04/28/20 [Lomotil] Ferrous Sulfate [Iron (65 MG 325 mg PO DAILY 11/08/19 04/28/20 Elemental)] Fluticasone Nasal [place] [Flonase 2 spr EA NOSTRIL DAILY PRN 11/08/19 04/28/20 Nasal Wiley] Keybiotics 1 tab PO DAILY 11/08/19 04/28/20 Metoprolol Tartrate [Lopressor] 25 mg PO TID 11/08/19 04/28/20 Metoprolol Tartrate [Lopressor] 50 mg PO TID 11/08/19 04/28/20 Multivitamins, Thera [Multivitamin 1 tab PO DAILY 04/28/20 04/28/20 (formulary)] Warfarin [Coumadin] 2 mg PO SUTUTH 04/28/20 04/28/20 Warfarin [Coumadin] 3 mg PO [id number] 04/28/20 04/28/20 Previous Rx's Medication Instructions Recorded HYDROcodone/APAP 5-325MG [[place] 1 tab PO Q6HR PRN #12 tab 04/24/20 5-325] Allergies Allergy/AdvReac Type Severity Reaction Status Date / Time nitrofurantoin Allergy Severe Rash/Hives Verified 04/28/20 14:03 [From Macrobid] nitrofurantoin Allergy Severe Rash/Hives Verified 04/28/20 14:03 macrocrystalline [From Macrobid] sulfamethoxazole Allergy Severe Rash/Hives Verified 04/28/20 14:03 [From Bactrim] trimethoprim [From Bactrim] Allergy Severe Rash/Hives Verified 04/28/20 14:03 hydromorphone HCl AdvReac Severe Nausea & Verified 04/28/20 14:03 [From Dilaudid] Vomiting Review of Systems ROS Other: All systems not noted in ROS Statement are negative. <Prakash Tobar - Last Filed: 04/28/20 15:19> ROS Other: All systems not noted in ROS Statement are negative. <Babak Gandara - Last Filed: 04/28/20 16:07> ROS Statement: Those systems with pertinent positive or pertinent negative responses have been documented in the HPI. 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 Aortic regurgitation. History of Any Multi-Drug Resistant Organisms: None Reported Past Surgical History: Cholecystectomy, Heart Catheterization, Hernia Repair, Hysterectomy, Orthopedic Surgery, Tubal Ligation Additional Past Surgical History / Comment(s): Trans abdominal vaginal wall suspension. "Dr. Abdi Riggs fixed a hole in my heart". Cardioversion. L3-4 lumber laminectomy. Past Anesthesia/Blood Transfusion Reactions: Motion Sickness, Postoperative Nausea & Vomiting (PONV) Additional Past Anesthesia/Blood Transfusion Reaction / Comment(s): has letter from "lindsay packer dr with anesthesia recommendations" pt to bring with her. "takes long time to come out of anesthesia" Past Psychological History: Depression Smoking Status: Never smoker Past Alcohol Use History: Occasional Past Drug Use History: None Reported - Past Family History Father Family Medical History: Myocardial Infarction (NE) Mother Family Medical History: Cancer <Prakash Tobar - Last Filed: 04/28/20 15:19> General Exam Limitations: no limitations General appearance: alert, in no apparent distress Head exam: Present: atraumatic, normocephalic, normal inspection Eye exam: Present: normal appearance, PERRL, EOMI. Absent: scleral icterus, conjunctival injection, periorbital swelling ENT exam: Present: normal exam, normal oropharynx, mucous membranes moist Neck exam: Present: normal inspection, full ROM. Absent: tenderness, meningismus, lymphadenopathy Respiratory exam: Present: normal lung sounds bilaterally. Absent: respiratory distress, wheezes, rales, rhonchi, stridor Cardiovascular Exam: Present: regular rate, normal rhythm, normal heart sounds. Absent: systolic murmur, diastolic murmur, rubs, gallop, clicks GI/Abdominal exam: Present: soft, tenderness, normal bowel sounds. Absent: distended, guarding, rebound, rigid Neurological exam: Present: alert, oriented X3 Skin exam: Present: warm, dry, intact, normal color. Absent: rash <Prakash Tobar - Last Filed: 04/28/20 15:19> General appearance: alert, in no apparent distress Head exam: Present: atraumatic, normocephalic, normal inspection Eye exam: Present: normal appearance, PERRL, EOMI. Absent: scleral icterus, conjunctival injection, periorbital swelling ENT exam: Present: normal exam, mucous membranes moist Neck exam: Present: normal inspection. Absent: tenderness, meningismus, lymphadenopathy Respiratory exam: Present: normal lung sounds bilaterally. Absent: respiratory distress, wheezes, rales, rhonchi, stridor Cardiovascular Exam: Present: regular rate, normal rhythm, normal heart sounds. Absent: systolic murmur, diastolic murmur, rubs, gallop, clicks GI/Abdominal exam: Present: soft, normal bowel sounds. Absent: distended, tenderness, guarding, rebound, rigid Extremities exam: Present: normal inspection, full ROM, normal capillary refill. Absent: tenderness, pedal edema, joint swelling, calf tenderness Back exam: Present: normal inspection Neurological exam: Present: alert, oriented X3, CN II-XII intact Psychiatric exam: Present: normal affect, normal mood Skin exam: Present: warm, dry, intact, normal color. Absent: rash <Babak Gandara - Last Filed: 04/28/20 16:07> Course Vital Signs 04/28/20 04/28/20 04/28/20 12:07 12:35 13:15 Temperature 98.0 F Pulse Rate 82 85 78 Respiratory 14 14 18 Rate Blood Pressure 115/93 83/47 82/56 O2 Sat by Pulse 94 L 97 99 Oximetry 04/28/20 04/28/20 04/28/20 14:11 14:43 14:45 Temperature 97.5 F L Pulse Rate 80 71 Respiratory 15 14 Rate Blood Pressure 92/50 75/34 100/51 O2 Sat by Pulse 96 98 Oximetry 04/28/20 04/28/20 04/28/20 15:18 15:31 15:52 Temperature Pulse Rate 75 81 84 Respiratory 15 14 14 Rate Blood Pressure 82/46 79/59 83/58 O2 Sat by Pulse 96 98 98 Oximetry Procedures - Central Line Placement Right IJ Consent Obtained: verbal consent Patient Placed on Monitor/Pulse Ox: Yes MD Prep: mask, gown, gloves Central Line Prep: Chlorhexidine scrub Local Anesthesia Used: Lidocaine 1%, with Epi Ultrasound Used for Placement: Yes Central Line Lumen Inserted: triple Central Line Position: good blood return, all ports aspirated, flushed, capped, sutured in place with 3-0 nylon Dressing Applied: Tegaderm Post Procedure X-Ray: tip of catheter in good position Patient Tolerated Procedure: well Complications: none - Sepsis Sepsis Focused Exam #1 Time Sepsis Criteria Met: 14:25 <Babak Gandara - Last Filed: 04/28/20 16:07> Medical Decision Making - Lab Data Result diagrams: 04/28/20 12:44 04/28/20 12:44 <Prakash Tobar - Last Filed: 04/28/20 15:19> - Lab Data Result diagrams: 04/28/20 12:44 04/28/20 12:44 <Babak Gandara - Last Filed: 04/28/20 16:07> - Medical Decision Making 74-year-old female presented for hypotension. Patient remains to be hypertensive after 3 L of fluids prior arrival patient was given additional liter of fluids, NS as 130ml/hr per hour. Patient needs have hypotension, acute renal failure. Patient did have documented urinary tract infection on . Patient was given dose of antibiotics, blood cultures were drawn lactic acid. Patient will be admitted to ICU for hypotension some further monitoring. (Prakash Tobar) - Lab Data Lab Results 04/28/20 04/28/20 04/28/20 Range/Units 12:44 12:44 12:44 WBC 4.3 (3.8-10.6) k/uL RBC 3.91 (3.80-5.40) m/uL Hgb 11.9 (11.4-16.0) gm/dL Hct 38.0 (34.0-46.0) % MCV 97.0 (80.0-100.0) fL MCH 30.5 (25.0-35.0) pg MCHC 31.4 (31.0-37.0) g/dL RDW 16.0 H (11.5-15.5) % Plt Count 50 L (150-450) k/uL Neutrophils % 74 % Lymphocytes % 16 % Monocytes % 8 % Eosinophils % 1 % Basophils % 0 % Neutrophils # 3.2 (1.3-7.7) k/uL Lymphocytes # 0.7 L (1.0-4.8) k/uL Monocytes # 0.4 (0-1.0) k/uL Eosinophils # 0.0 (0-0.7) k/uL Basophils # 0.0 (0-0.2) k/uL Manual Slide Review Performed Hypochromasia Slight Poikilocytosis Slight PT 13.4 H (9.0-12.0) sec INR 1.3 H (<1.2) APTT 23.9 (22.0-30.0) sec Sodium 133 L (137-145) mmol/L Potassium 4.5 (3.5-5.1) mmol/L Chloride 109 H (98-107) mmol/L Carbon Dioxide 13 L (22-30) mmol/L Anion Gap 11 mmol/L BUN 76 H (7-17) mg/dL Creatinine 4.98 H (0.52-1.04) mg/dL Est GFR (CKD-EPI)AfAm 9 (>60 ml/min/1.73 sqM) Est GFR (CKD-EPI)NonAf 8 (>60 ml/min/1.73 sqM) Glucose 115 H (74-99) mg/dL Plasma Lactic Acid Gabe (0.7-2.0) mmol/L Calcium 7.8 L (8.4-10.2) mg/dL Magnesium 2.0 (1.6-2.3) mg/dL Total Bilirubin 0.7 (0.2-1.3) mg/dL AST 26 (14-36) U/L ALT 13 (4-34) U/L Alkaline Phosphatase 76 (38-126) U/L Creatine Kinase 64 (30-135) U/L Troponin I (0.000-0.034) ng/mL Total Protein 5.2 L (6.3-8.2) g/dL Albumin 2.7 L (3.5-5.0) g/dL 04/28/20 04/28/20 Range/Units 12:44 12:44 WBC (3.8-10.6) k/uL RBC (3.80-5.40) m/uL Hgb (11.4-16.0) gm/dL Hct (34.0-46.0) % MCV (80.0-100.0) fL MCH (25.0-35.0) pg MCHC (31.0-37.0) g/dL RDW (11.5-15.5) % Plt Count (150-450) k/uL Neutrophils % % Lymphocytes % % Monocytes % % Eosinophils % % Basophils % % Neutrophils # (1.3-7.7) k/uL Lymphocytes # (1.0-4.8) k/uL Monocytes # (0-1.0) k/uL Eosinophils # (0-0.7) k/uL Basophils # (0-0.2) k/uL Manual Slide Review Hypochromasia Poikilocytosis PT (9.0-12.0) sec INR (<1.2) APTT (22.0-30.0) sec Sodium (137-145) mmol/L Potassium (3.5-5.1) mmol/L Chloride (98-107) mmol/L Carbon Dioxide (22-30) mmol/L Anion Gap mmol/L BUN (7-17) mg/dL Creatinine (0.52-1.04) mg/dL Est GFR (CKD-EPI)AfAm (>60 ml/min/1.73 sqM) Est GFR (CKD-EPI)NonAf (>60 ml/min/1.73 sqM) Glucose (74-99) mg/dL Plasma Lactic Acid Gabe 0.9 (0.7-2.0) mmol/L Calcium (8.4-10.2) mg/dL Magnesium (1.6-2.3) mg/dL Total Bilirubin (0.2-1.3) mg/dL AST (14-36) U/L ALT (4-34) U/L Alkaline Phosphatase (38-126) U/L Creatine Kinase (30-135) U/L Troponin I <0.012 (0.000-0.034) ng/mL Total Protein (6.3-8.2) g/dL Albumin (3.5-5.0) g/dL Critical Care Time Critical Care Time: Yes Total Critical Care Time: 35 <Prakash Tobar - Last Filed: 04/28/20 15:19> Critical Care Time: Total of 35 minutes of critical care time used to initially evaluate the patient, reviewed past medical history, oriented lab, x-ray. Patient's found to be in acute renal failure was likely related to urinary tract infection, hypertension. Patient was given 3 L of fluids prior arrival, additional liter of fluids was ordered and maintenance fluids 130 miles per hour were ordered. Patient was given Anaprox, steroids. Patient will be admitted for further management, nephrology evaluation. (Prakash Tobar) Disposition <Prakash Tobar - Last Filed: 04/28/20 15:19> <Babak Gandara - Last Filed: 04/28/20 16:07> Clinical Impression: Acute renal failure, Dehydration, Hypotension, UTI (urinary tract infection) Disposition: ADMITTED IP TO THIS HOSP Condition: Critical
[2020-04-28 13:39] LABS: Albumin 2.7 g/dL (3.5-5.0); Calcium 7.8 mg/dL (8.4-10.2); Total Bilirubin 0.7 mg/dL (0.2-1.3); Total Protein 5.2 g/dL (6.3-8.2)
[2020-04-28 13:41] LABS: Potassium 4.5 mmol/L (3.5-5.1)
[2020-04-28 13:57] LABS: INR 1.3 (<1.2); Partial Thromboplastin Time 23.9 sec (22.0-30.0); Prothrombin Time 13.4 sec (9.0-12.0)
[2020-04-28] MEDS ORDERED: SODIUM CHLORIDE 0.9% 1,000 ML IV ONE ×2 (13:59→15:09)
[2020-04-28] MEDS ORDERED: DEXAMETHASONE SOD PHOSPHATE 10 MG/ML 1 ML VIAL IV STA (13:59)
[2020-04-28] MEDS ORDERED: cefTRIAXone IN SWFI 1,000 MG/10 ML SYRINGE IVP STA (14:05)
[2020-04-28] MEDS ORDERED: NOREPINEPHRINE 32 MG in SODIUM CHLORIDE 0.9% 218 ML IV ONE (15:23)
[2020-04-28] MEDS ORDERED: DIPHENOX-ATROP 2.5-0.025 MG 1 EACH TAB PO PRN (15:50)
[2020-04-28] MEDS ORDERED: FLUTICASONE 50MCG/SPRAY NASAL 16GM EA NOSTRIL PRN (15:50)
[2020-04-28] MEDS ORDERED: PANTOPRAZOLE 40 MG TABLET PO PRN (15:50)
--- NOTE | 2020-04-28 15:55 | ED ---
Medical Decision Making - Lab Data Result diagrams: 04/28/20 12:44 04/28/20 12:44 Lab Results 04/28/20 04/28/20 04/28/20 Range/Units 12:44 12:44 12:44 WBC 4.3 (3.8-10.6) k/uL RBC 3.91 (3.80-5.40) m/uL Hgb 11.9 (11.4-16.0) gm/dL Hct 38.0 (34.0-46.0) % MCV 97.0 (80.0-100.0) fL MCH 30.5 (25.0-35.0) pg MCHC 31.4 (31.0-37.0) g/dL RDW 16.0 H (11.5-15.5) % Plt Count 50 L (150-450) k/uL Neutrophils % 74 % Lymphocytes % 16 % Monocytes % 8 % Eosinophils % 1 % Basophils % 0 % Neutrophils # 3.2 (1.3-7.7) k/uL Lymphocytes # 0.7 L (1.0-4.8) k/uL Monocytes # 0.4 (0-1.0) k/uL Eosinophils # 0.0 (0-0.7) k/uL Basophils # 0.0 (0-0.2) k/uL Manual Slide Review Performed Hypochromasia Slight Poikilocytosis Slight PT 13.4 H (9.0-12.0) sec INR 1.3 H (<1.2) APTT 23.9 (22.0-30.0) sec Sodium 133 L (137-145) mmol/L Potassium 4.5 (3.5-5.1) mmol/L Chloride 109 H (98-107) mmol/L Carbon Dioxide 13 L (22-30) mmol/L Anion Gap 11 mmol/L BUN 76 H (7-17) mg/dL Creatinine 4.98 H (0.52-1.04) mg/dL Est GFR (CKD-EPI)AfAm 9 (>60 ml/min/1.73 sqM) Est GFR (CKD-EPI)NonAf 8 (>60 ml/min/1.73 sqM) Glucose 115 H (74-99) mg/dL Plasma Lactic Acid Gabe (0.7-2.0) mmol/L Calcium 7.8 L (8.4-10.2) mg/dL Magnesium 2.0 (1.6-2.3) mg/dL Total Bilirubin 0.7 (0.2-1.3) mg/dL AST 26 (14-36) U/L ALT 13 (4-34) U/L Alkaline Phosphatase 76 (38-126) U/L Creatine Kinase 64 (30-135) U/L Troponin I (0.000-0.034) ng/mL Total Protein 5.2 L (6.3-8.2) g/dL Albumin 2.7 L (3.5-5.0) g/dL 04/28/20 04/28/20 Range/Units 12:44 12:44 WBC (3.8-10.6) k/uL RBC (3.80-5.40) m/uL Hgb (11.4-16.0) gm/dL Hct (34.0-46.0) % MCV (80.0-100.0) fL MCH (25.0-35.0) pg MCHC (31.0-37.0) g/dL RDW (11.5-15.5) % Plt Count (150-450) k/uL Neutrophils % % Lymphocytes % % Monocytes % % Eosinophils % % Basophils % % Neutrophils # (1.3-7.7) k/uL Lymphocytes # (1.0-4.8) k/uL Monocytes # (0-1.0) k/uL Eosinophils # (0-0.7) k/uL Basophils # (0-0.2) k/uL Manual Slide Review Hypochromasia Poikilocytosis PT (9.0-12.0) sec INR (<1.2) APTT (22.0-30.0) sec Sodium (137-145) mmol/L Potassium (3.5-5.1) mmol/L Chloride (98-107) mmol/L Carbon Dioxide (22-30) mmol/L Anion Gap mmol/L BUN (7-17) mg/dL Creatinine (0.52-1.04) mg/dL Est GFR (CKD-EPI)AfAm (>60 ml/min/1.73 sqM) Est GFR (CKD-EPI)NonAf (>60 ml/min/1.73 sqM) Glucose (74-99) mg/dL Plasma Lactic Acid Gabe 0.9 (0.7-2.0) mmol/L Calcium (8.4-10.2) mg/dL Magnesium (1.6-2.3) mg/dL Total Bilirubin (0.2-1.3) mg/dL AST (14-36) U/L ALT (4-34) U/L Alkaline Phosphatase (38-126) U/L Creatine Kinase (30-135) U/L Troponin I <0.012 (0.000-0.034) ng/mL Total Protein (6.3-8.2) g/dL Albumin (3.5-5.0) g/dL Disposition Clinical Impression: Acute renal failure, Dehydration, Hypotension, UTI (urinary tract infection) Disposition: ADMITTED IP TO THIS HOSP Condition: Critical Procedures - Sepsis Sepsis Focused Exam #1 Time Sepsis Criteria Met: 14:25 Sepsis Focused Exam Date: 04/28/20 Sepsis Focused Exam Time: 14:45 Sepsis Focused Exam Complete: Yes Vital Signs & RN Notes Reviewed: Yes Capillary Refill: < 2 Seconds: Fingers, Toes Peripheral Pulses: Normal: Radial (R), Radial (L), Posterior Tibialis (R), Posterior Tibialis (L), Dorsalis Pedis (R), Dorsalis Pedis (L) Skin Color: Normal for Patient Respiratory Exam: normal lung sounds Cardiovascular Exam: regular rate, normal rhythm
[2020-04-28 16:44] LABS: Glucose,Whole Blood 116 mg/dL (75-99)
--- NOTE | 2020-04-28 16:49 | P.CNPUL ---
History of Present Illness Consult date: 04/28/20 Chief complaint: Generalized weakness, hypotension History of present illness: A 74-year-old female patient who got transferred to the emergency department from the outpatient surgical center as the patient was found to be quite weak and hypotensive. The patient reported that she hasn't been feeling good and her condition was declining since which is approximately 3 days ago. The patient was evaluated in emerged department on 04/24/2020 and the patient was diagnosed having a UTI based on the abnormal UA. Nevertheless, during cultures came back negative. At that time, the patient was discharged home on Levaquin 500 milligrams for a total of 5 days. Note that the patient was placed on antibiotics which cause extreme diarrhea and worsening of her underlying colitis. Today, the patient was supposed to have a cystoscopy for underlying bladder pain and dysfunction. She was found to be quite 6 and she was sent over.. No fever. No chills no focal neurological deficit. The blood work showed an acute on top of chronic kidney failure. The patient's baseline creatinine was around 1.8 and current creatinine is up to 4.9. Urine is up to 76. The patient is a component of non-anion gap metabolic acidosis with a gap of 11 and a serum bicarb of 13. Sodium is at 133. The white cell count is at 4.3. Platelet counts have dropped down to 50. The patient is already being given a total of 370 fluids and the patient is starting on norepinephrine for blood pressure support. The INR is subtherapeutic as the patient has chronic atrial fibrillation. Today's INR is at 1.3. With a controlled rate at a rate of 87. Review of Systems Patient reports no sore throat, no bleeding gums, no snoring, no dry mouth, no mouth ulcers, no oral abnormalities, and no teeth problems; no snoring for now. She reports shortness of breath when walking but reports no chest pain, no arm pain on exertion, no shortness of breath when lying down, no palpitations, and no known heart murmur. She reports sleep apnea but reports no cough, no wheezing, no shortness of breath, and no coughing up blood. She reports no muscle aches, no muscle weakness, no arthralgias/joint pain, no back pain, and no swelling in the extremities; pain in the LLE improved and she is taking tylenol. She reports no fever, no night sweats, no significant weight gain, no significant weight loss, and no exercise intolerance. She reports no dry eyes, no vision change, and no irritation. She reports no difficulty hearing and no ear pain. She reports no frequent nosebleeds, no nose problems, and no sinus problems. She reports no abdominal pain, no nausea, no vomiting, no constipation, normal appetite, the patient developed some pelvic pain and diarrhea that involved after the antibiotic intake, not vomiting blood, no dyspepsia, and no GERD. She reports no incontinence, no difficulty urinating, no hematuria, and no increased frequency. She reports no abnormal mole, no jaundice, no rashes, and no laceration. She reports no loss of consciousness, no weakness, no numbness, no seizures, no dizziness, no migraines, no headaches, and no tremor. She reports no depression, no sleep disturbances, feeling safe in a relationship, no alcohol abuse, no anxiety, no hallucinations, and no suicidal thoughts. She reports no fatigue. She reports no swollen glands, no bruising, and no excessive bleeding. She reports no runny nose, no sinus pressure, no itching, no hives, and no frequent sneezing. The patient is complaining of generalized weakness and fatigue Past Medical History Past Medical History: Asthma, Fibromyalgia, Hypertension, Osteoarthritis (OA), Rheumatoid Arthritis (RA), Sleep Apnea/CPAP/BIPAP, Thyroid Disorder Additional Past Medical History / Comment(s): Obstructive sleep apnea, mild intermittent bronchial asthma, chronic atrial fibrillation, ALLERGIC rhinitis, diabetes mellitus, hypertension, chronic kidney disease, obesity, history of left tibial plateau fracture, inflammatory bowel disease, post polio syndrome, hypertension, osteoarthritis, fibromyalgia, hypothyroidism, 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 "Dr. Abdi Riggs fixed a hole in my heart". Cardioversion. L3-4 lumber laminectomy. Past Anesthesia/Blood Transfusion Reactions: Motion Sickness, Postoperative Nausea & Vomiting (PONV) Additional Past Anesthesia/Blood Transfusion Reaction / Comment(s): has letter from "post polio with anesthesia recommendations" pt to bring with her. "takes long time to come out of anesthesia" Past Psychological History: Depression Smoking Status: Never smoker Past Alcohol Use History: Occasional Past Drug Use History: None Reported - Past Family History Father Family Medical History: Myocardial Infarction ([place]) Mother Family Medical History: Cancer Medications and Allergies Home Medications Medication Instructions Recorded Confirmed Type RX: Levothyroxine Sodium 88 mcg PO DAILY 04/08/14 04/28/20 History [Synthroid] RX: Loperamide [Imodium] 4 mg PO DAILY PRN 04/08/14 04/28/20 History RX: Mesalamine [Lialda] 1.2 gm PO BID 04/08/14 04/28/20 History RX: Acetaminophen [Tylenol Extra 500 mg PO DAILY PRN 08/01/18 04/28/20 History Strength] RX: Omeprazole [PriLOSEC] 20 mg PO AC-BRKFST PRN 08/01/18 04/28/20 History RX: allopurinoL [Zyloprim] 100 mg PO TID 08/01/18 04/28/20 History RX: Pregabalin [Lyrica] 200 mg PO BID 08/08/18 04/28/20 History Keybiotics 1 tab PO DAILY 11/08/19 04/28/20 History RX: Diphenox-Atrop 2.5-0.025 mg 2 tab PO HS PRN 11/08/19 04/28/20 History [Lomotil] RX: Ferrous Sulfate [Iron (65 MG 325 mg PO DAILY 11/08/19 04/28/20 History Elemental)] RX: Fluticasone Nasal [place] 2 spr EA NOSTRIL DAILY PRN 11/08/19 04/28/20 History [Flonase Nasal [place]] RX: Metoprolol Tartrate [Lopressor] 25 mg PO TID 11/08/19 04/28/20 History RX: Metoprolol Tartrate [Lopressor] 50 mg PO TID 11/08/19 04/28/20 History HYDROcodone/APAP 5-325MG [[place] 1 tab PO Q6HR PRN #12 tab 04/24/20 04/28/20 Rx 5-325] Multivitamins, Thera [Multivitamin 1 tab PO DAILY 04/28/20 04/28/20 History (formulary)] Warfarin [Coumadin] 2 mg PO SUTUTH 04/28/20 04/28/20 History Warfarin [Coumadin] 3 mg PO MOWEFRSA 04/28/20 04/28/20 History Allergies Allergy/AdvReac Type Severity Reaction Status Date / Time nitrofurantoin Allergy Severe Rash/Hives Verified 04/28/20 14:03 [From Macrobid] nitrofurantoin Allergy Severe Rash/Hives Verified 04/28/20 14:03 macrocrystalline [From Macrobid] sulfamethoxazole Allergy Severe Rash/Hives Verified 04/28/20 14:03 [From Bactrim] trimethoprim [From Bactrim] Allergy Severe Rash/Hives Verified 04/28/20 14:03 hydromorphone HCl AdvReac Severe Nausea & Verified 04/28/20 14:03 [From Dilaudid] Vomiting Physical Exam Vitals: Vital Signs Temp Pulse Resp BP Pulse Ox 04/28/20 15:31 81 14 79/59 98 04/28/20 15:18 75 15 82/46 96 04/28/20 14:45 100/51 04/28/20 14:43 97.5 F L 71 14 75/34 98 04/28/20 14:11 80 15 92/50 96 04/28/20 13:15 78 18 82/56 99 04/28/20 12:35 85 14 83/47 97 04/28/20 12:07 98.0 F 82 14 115/93 94 L Intake and Output 04/28/20 04/28/20 04/28/20 06:59 14:59 22:59 Other: Weight 87.997 kg General Appearance no diaphoresis, dyspnea, pallor, or respiratory distress and speech not interrupted by breaths, not cachectic, well nourished, appears well, and obesity. HEENT no pursed lip breathing, jugular venous distention, mucous membrane cyanosis, or perioral cyanosis and mallampati classification: class 1 and Mallampati Classification: Class 4. Chest no retractions, rhonchi, hyperinflation, barrel chest, sternocleidomastoid muscle contractions, supraclavicular retractions, intercostal retractions, prolonged expiratory wheezing, or decreased air movement and decreased air movement. Heart no right ventricular heave, distant heart sounds, or s3 gallop and irregular heart rhythm: totally irregular; irregular, secondary to AFIB. GI bowel sounds: hyperactive (borborygmi) and diminished or absent. Extremities no cyanosis, clubbing, or edema. Neurologic no somnolence, confusion, or decreased mental status. Skin: General Appearance normal and (normal) normal except as noted. Results - Laboratory Findings CBC and BMP: 04/28/20 12:44 04/28/20 12:44 PT/INR, D-dimer PT 13.4 sec (9.0-12.0) H 04/28/20 12:44 INR 1.3 (<1.2) H 04/28/20 12:44 Abnormal lab findings: Abnormal Labs 04/28/20 04/28/20 04/28/20 12:44 12:44 12:44 RDW 16.0 H Plt Count 50 L Lymphocytes # 0.7 L PT 13.4 H INR 1.3 H Sodium 133 L Chloride 109 H Carbon Dioxide 13 L BUN 76 H Creatinine 4.98 H Glucose 115 H Calcium 7.8 L Total Protein 5.2 L Albumin 2.7 L - Diagnostic Findings Chest x-ray: image reviewed Assessment and Plan Plan: 1 acute hypotension, not responsive to fluids and the patient will be started on pressors. No significant leukocytosis and no fever. Consider underlying infection/sepsis and the patient was diagnosed having a UTI on 04/24/2020. Cultures are all negative. The patient was receiving Levaquin on outpatient basis. Consider intravascular volume depletion as the patient was having diarrhea on outpatient basis 2 acute kidney injury on top of chronic stage III kidney disease. The patient has also developed a component of non-anion gap metabolic acidosis 3 obstructive sleep apnea with an AHI of 15 and the patient is on a CPAP at a pressure of 10 cm of water on outpatient basis 4 mild intermittent bronchial asthma 5 chronic atrial fibrillation maintained on long-term medical condition with warfarin with a subtherapeutic PT/INR at 1.3 6 diabetes mellitus without any complications 7 history of hypertension 8 morbid obesity 9 inflammatory bowel disease, maintain on mesalamine an outpatient basis 10 hypothyroidism, maintained on Synthroid on outpatient basis 11 post polio syndrome 12 history of hematuria, negative urine cytology and the patient was supposed to have a outpatient cystoscopy Plan Continue with IV fluids as the patient received a total of 3 L of IV fluids and the patient will need pressors for blood pressure support check urine culture check blood culture check stool for C. diff transfer the patient ICU ultrasound the kidneys to rule out hydronephrosis Nephrology consultation Hold metoprolol Daily PT/INR and monitor the Coumadin levels Check serum cortisol level Check free T4 and TSH Check echocardiogram Check pro calcitonin level the patient IV Zosyn as an empiric antibiotic coverage transferred to the intensive care units
--- NOTE | 2020-04-28 17:15 | XR ---
EXAMINATION TYPE: XR chest 1V confirm line [facility] DATE OF EXAM: 04/28/2020 COMPARISON: Today HISTORY: Weakness. Line placement. TECHNIQUE: FINDINGS: There is right jugular catheter with tip in the top of the right atrium. There is no heart failure. Heart size is fairly normal. Lungs are clear of consolidation. There are chest leads. IMPRESSION: No acute lung disease. Catheter in good position.
[2020-04-28] MEDS: NOREPINEPHRINE 8 MG in SODIUM CHLORIDE 0.9% 250 ML IV SCH (17:30)
[2020-04-28] MEDS ORDERED: NALOXONE 0.4 MG/ML 1 ML VIAL IV PRN (17:38)
[2020-04-28 17:39] LABS: Albumin 2.5 g/dL (3.5-5.0); Calcium 7.4 mg/dL (8.4-10.2); Potassium 4.2 mmol/L (3.5-5.1); Total Bilirubin 0.4 mg/dL (0.2-1.3); Total Protein 4.6 g/dL (6.3-8.2)
[2020-04-28 17:42] LABS: Appearance,Urine Cloudy (Clear); Bacteria,Urine Rare /hpf; Bilirubin,Urine Negative (Negative); Blood,Urine Moderate (Negative); Color,Urine Yellow; Glucose,Urine (UA) Negative (Negative); Ketones,Urine Negative (Negative); Leukocyte Esterase,Urine Large (Negative); Mucus,Urine Rare /hpf; Nitrite,Urine Negative (Negative); Protein,Urine 3+ (Negative); RBC,Urine 43 /hpf (0-5); Specific Gravity,Urine 1.011 (1.001-1.035); Squamous Epithelial Cell,Urine <1 /hpf (0-4); Urobilinogen,Urine <2.0 mg/dL (<2.0); WBC,Urine >182 /hpf (0-5)
[2020-04-28] MEDS ORDERED: WARFARIN 2 MG TAB PO ONE (18:00)
--- NOTE | 2020-04-28 18:17 | HP ---
HISTORY AND PHYSICAL DATE OF SERVICE: 04/28/2020 CHIEF COMPLAINT: Hypertension. HISTORY OF PRESENT ILLNESS: This 74-year-old woman with a past medical history of multiple medical problems, including asthma, fibromyalgia, hypertension, DJD, history of rheumatoid arthritis, sleep apnea, history of cholecystectomy, history of cardiac catheterization, being followed by Dr. Johnny To in the outpatient setting, apparently had surgery today by Dr. Jack with bladder biopsies. Post-surgically the patient was found to be hypotensive. Patient received about 2-3 L of lactated Ringer, but since the blood pressure was still persistently low, the patient was sent to [facility] Emergency Room and admitted for further evaluation and treatment. Blood pressure was found to be 92/50. After one liter bolus, the blood pressure was still low at 79/59. There is no history of any fever, rigor or chills. No history of headache, loss of consciousness, seizures. Patient is appears to be dehydrated at this time. PAST MEDICAL HISTORY: History of asthma, fibromyalgia, hypertension, DJD, rheumatoid arthritis, sleep apnea. HOME MEDICATIONS: 1. Zyloprim 100 mg p.o. t.i.d. 2. Coumadin 3 mg Tuesday, Tuesday, Tuesday, Tuesday; 2 mg Tuesday, Tuesday, . 3. Lyrica 200 mg b.i.d. 4. Prilosec. 5. Multivitamins. 6. Lopressor 25 mg t.i.d., 50 mg p.o. t.i.d. 7. Lialda 1.2 b.i.d. 8. Imodium 4 mg daily. 9. Synthroid 88 mcg p.o. daily. 10.[place] q.6 p.r.n. 11.Flonase 2 sprays daily p.r.n. 12.Iron sulfate 320 mg p.o. daily. 13.Lomotil 2 mg daily. 14.Tylenol p.r.n. ALLERGIES: MACROBID, BACTRIM, AND DILAUDID. FAMILY HISTORY: History of myocardial infarction in the family. SOCIAL HISTORY: No history of smoking. Occasional alcohol intake. REVIEW OF SYSTEMS: ENT: No diminished hearing. No diminished vision. CARDIOVASCULAR SYSTEM: No angina, palpitations. RESPIRATORY SYSTEM: As mentioned earlier. GI: As mentioned earlier. : No dysuria or retention. NERVOUS SYSTEM: No numbness, weakness. ALLERGY/IMMUNOLOGY: No asthma, hayfever. MUSCULOSKELETAL: As mentioned earlier. HEMATOLOGY/ONCOLOGY: No history of anemia. ENDOCRINE: Diabetes mellitus, hypothyroidism. CONSTITUTIONAL: As mentioned earlier. DERMATOLOGY: Negative. RHEUMATOLOGY: Negative. PSYCHIATRY: As mentioned earlier. PHYSICAL EXAMINATION: Patient is alert, oriented x3. Pulse is 81, blood pressure 79/59, respiration 14, temperature 97.5, pulse ox 98% on room air. HEENT: Conjunctivae normal. Oral mucosa dry. NECK: No jugular venous distention. No carotid bruit. No lymph node enlargement. CARDIOVASCULAR SYSTEM: S1, S2 muffled. No S3. No S4. RESPIRATORY SYSTEM: Breath sounds diminished at the bases. A few scattered rhonchi and crackles. ABDOMEN: Soft, non-tender. No mass palpable. LEGS: No edema. No swelling. NERVOUS SYSTEM: Higher functions as mentioned earlier. Moves all 4 limbs. No focal motor or sensory deficit. LYMPHATICS: No lymph node palpable in neck, axillae or groin. SKIN: No ulcer, rash, bleeding. JOINTS: No active deforming arthropathy. LABS: Platelets 50. Sodium 133, potassium 4.5. CO2 is 13, creatinine 4.98. The baseline creatinine was 1.8. ASSESSMENT: 1. Severe acute hypotension, postoperative, possibly secondary to acute tubular necrosis and renal failure. 2. Severe hypotension secondary to dehydration and hypovolemia. 3. Hyponatremia. 4. Acidosis. 5. Thrombocytopenia. 6. History of recent urinary tract infection. 7. History of asthma, fibromyalgia. 8. Hypertension. 9. History of degenerative joint disease. 10.History of rheumatoid arthritis. 11.Sleep apnea. 12.History of hypothyroidism. 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 14.History of post polio syndrome. 15.Aortic regurgitation. 16.History of cholecystectomy. 17.History of motion sickness. 18.History of depression. 19.Hypoalbuminemia. RECOMMENDATIONS AND DISCUSSION: In this 74-year-old woman who presented with multiple complex medical issues, we will monitor the patient closely, continue the current medications, continue with symptomatic treatment. I would recommend continuing with IV boluses and empiric antibiotics, cultures. I would also recommend a PICC line, a small dose of Levophed and possible ICU transfer along with consultation with Dr. Muir. The prognosis is extremely guarded because of the multiple complex medical issues. I would recommend a cortisol level, also. See orders for further details. Further recommendations to follow. Discussed with the family, who understands and agrees. The lactic acid is 0.9 only. MMCARINAL / IJN: [id number] / MTDD
[2020-04-28 18:28] LABS: Phosphorus 6.2 mg/dL (2.5-4.5)
[2020-04-28] MEDS: allopurinoL 100 MG TAB PO SCH ×2 (18:44→20:24)
[2020-04-28 18:45] LABS: T4, Free (Free Thyroxine) 2.06 ng/dL (0.78-2.19)
--- NOTE | 2020-04-28 19:21 | US ---
EXAMINATION TYPE: US kidneys/renal and bladder DATE OF EXAM: 04/28/2020 COMPARISON: 2019 CLINICAL HISTORY: REGINALD. REGINALD> EXAM MEASUREMENTS: Right Kidney: 9.1 x 4.5 x 4.3 cm Left Kidney: 9.2 x 5.5 x 4.0 cm *Limited due to gas and patient body habitus. Right Kidney: Anechoic area seen mid-lower pole measurin.5 x 1.1 x 1.0 cm. Appears small. Left Kidney: Limited. Appears small. Cortex appears thin. Bladder: Not visualized Bilateral Jets seen: No IMPRESSION: Small cyst lower pole right kidney. No evidence of solid renal mass or obstruction. Bladder was empty during the exam.
[2020-04-28] MEDS: PREGABALIN 100 MG CAP PO SCH (20:23)
[2020-04-28] MEDS: BALSALAZIDE DISODIUM 750 MG CAPSULE PO SCH (20:24)
[2020-04-28 20:27] LABS: Glucose,Whole Blood 214 mg/dL (75-99)
[2020-04-28] MEDS: PIPERACILLIN-TAZOBACTAM 3.375 GM in SODIUM CHLORIDE 0.9% 100 ML IVPB SCH (23:08)
[2020-04-29 04:59] LABS: Anisocytosis Slight; Basophils % (A) 0 %; Eosinophils % (A) 0 %; HCT 43.3 % (34.0-46.0); HGB 13.4 gm/dL (11.4-16.0); Hypochromasia Marked; Lymphocytes # (A) 0.5 k/uL (1.0-4.8); Lymphocytes % (A) 9 %; MCH 30.5 pg (25.0-35.0); MCHC 30.8 g/dL (31.0-37.0); MCV 99.1 fL (80.0-100.0); Macrocytosis Slight; Mean Platelet Volume 9.4; Monocytes # (A) 0.1 k/uL (0-1.0); Monocytes % (A) 2 %; Neutrophils # (A) 5.1 k/uL (1.3-7.7); Neutrophils % (A) 88 %; Poikilocytosis Slight; RBC 4.37 m/uL (3.80-5.40); RDW 16.1 % (11.5-15.5); WBC 5.8 k/uL (3.8-10.6)
[2020-04-29 05:03] LABS: INR 1.8 (<1.2); Prothrombin Time 17.3 sec (9.0-12.0)
[2020-04-29 05:15] LABS: Platelet Count 162 k/uL (150-450)
[2020-04-29 05:21] LABS: Calcium 8.1 mg/dL (8.4-10.2); Magnesium 2.1 mg/dL (1.6-2.3); Phosphorus 8.9 mg/dL (2.5-4.5)
[2020-04-29] MEDS: LEVOTHYROXINE 88 MCG TAB PO SCH (07:10)
[2020-04-29] MEDS: PIPERACILLIN-TAZOBACTAM 3.375 GM in SODIUM CHLORIDE 0.9% 100 ML IVPB SCH ×2 (08:46→20:37)
[2020-04-29] MEDS: allopurinoL 100 MG TAB PO SCH ×3 (08:46→20:36)
[2020-04-29] MEDS: BALSALAZIDE DISODIUM 750 MG CAPSULE PO SCH ×3 (08:46→20:36)
[2020-04-29] MEDS: MULTIVITAMINS, THERA 1 EACH TAB PO SCH (08:47)
[2020-04-29] MEDS: PREGABALIN 100 MG CAP PO SCH ×2 (08:47→20:36)
--- NOTE | 2020-04-29 10:00 | ECHOF ---
Referral Reason:REGINALD/Hypotension MEASUREMENTS -------- HEIGHT: 170.2 cm WEIGHT: 88.0 kg BP: 96/58 RVIDd: 3.4 cm (< 3.3) IVSd: 1.2 cm (0.6 - 1.1) LVIDd: 4.8 cm (3.9 - 5.3) LVPWd: 1.2 cm (0.6 - 1.1) IVSs: 1.7 cm LVIDs: 3.3 cm LVPWs: 1.8 cm LA Diam: 4.0 cm (2.7 - 3.8) LAESV Index (A-L): 21.81 ml/m Ao Diam: 3.3 cm (2.0 - 3.7) AV Cusp: 2.5 cm (1.5 - 2.6) MV EXCURSION: 18.069 mm (> 18.000) MV EF SLOPE: 115 mm/s (70 - 150) EPSS: 0.6 cm RAP: 5.00 mmHg RVSP: 45.17 mmHg FINDINGS -------- Atrial fibrillation. This was a technically adequate study. The left ventricular size is normal. There is borderline concentric left ventricular hypertrophy. Overall left ventricular systolic function is low-normal with, an EF between 50 %. The right ventricle is mildly enlarged. Normal LA size by volume 22+/-6 ml/m2. The right atrium is normal in size. Interatrial and interventricular septum intact. The aortic valve is trileaflet and appears structurally normal. Mild mitral regurgitation is present. [id number] tricuspid regurgitation present. There is mild to moderate pulmonary hypertension. The right ventricular systolic pressure, as measured by Doppler, is 45.17mmHg. The pulmonic valve was not well visualized. The aortic root size is normal. Normal inferior vena cava with normal inspiratory collapse consistent with estimated right atrial pre ssure of 5 mmHg. The inferior vena cava is mildly dilated. There is no pericardial effusion. CONCLUSIONS -------- 1. The left ventricular size is normal. 2. There is borderline concentric left ventricular hypertrophy. 3. Overall left ventricular systolic function is low-normal with, an EF between 50 - 55 %. 4. The right ventricle is mildly enlarged. 5. Normal LA size by volume 22+/-6 ml/m2. 6. Mild mitral regurgitation is present. 7. [id number] tricuspid regurgitation present. 8. There is mild to moderate pulmonary hypertension. 9. The right ventricular systolic pressure, as measured by Doppler, is 45.17mmHg. 10. The inferior vena cava is mildly dilated. 11. There is no pericardial effusion. ENTOMOLOGY PROFESSOR: Jacki Headley RDCS
[2020-04-29] MEDS: DEXTROSE 5% IN WATER 1,000 ML with SODIUM BICARB (1 MEQ/ML) 150 ML IV SCH ×2 (10:12→20:37)
[2020-04-29 11:43] LABS: Glucose,Whole Blood 221 mg/dL (75-99)
--- NOTE | 2020-04-29 13:41 | P.PN ---
Subjective Progress Note Date: 04/29/20 A 74-year-old female patient who got transferred to the emergency department from the outpatient surgical center as the patient was found to be quite weak and hypotensive. The patient reported that she hasn't been feeling good and her condition was declining since which is approximately 3 days ago. The patient was evaluated in emerged department on 04/24/2020 and the patient was diagnosed having a UTI based on the abnormal UA. Nevertheless, during cultures came back negative. At that time, the patient was discharged home on Levaquin 500 milligrams for a total of 5 days. Note that the patient was placed on antibiotics which cause extreme diarrhea and worsening of her underlying colit is. Today, the patient was supposed to have a cystoscopy for underlying bladder pain and dysfunction. She was found to be quite 6 and she was sent over.. No fever. No chills no focal neurological deficit. The blood work showed an acute on top of chronic kidney failure. The patient's baseline creatinine was around 1.8 and current creatinine is up to 4.9. Urine is up to 76. The patient is a component of non-anion gap metabolic acidosis with a gap of 11 and a serum bicarb of 13. Sodium is at 133. The white cell count is at 4.3. Platelet counts have dropped down to 50. The patient is already being given a total of 370 fluids and the patient is starting on norepinephrine for blood pressure support. The INR is subtherapeutic as the patient has chronic atrial fibrillation. Today's INR is at 1.3. The patient remains in atrial fibrillation. The rate of 87. 04/29/2020 I'm seeing the patient for a follow-up and she was seen in consultation yesterday. The patient is doing well. She is on normal saline at the rate of 75 mL an hour. She received a total of 4 L of IV fluid bolus and she is on norepinephrine infusion at 0.05 g per KG per minute. She is on room air oxygen with a pulse of 75%. Chest x-ray remains clear. Ultrasound of the kidneys have shown no evidence of any hydronephrosis. The kidneys of normal size and there is a small cyst in the lower portion of the right kidney. The echocardiogram showed atrial fibrillation. The patient has an ejection fraction of 50-55%. PA pressures around 45 mmHg and there is no evidence of any pulmonary hypertension. Blood work from today shows no significant leukocytosis. White cell count is at 5.8. INR is 1.8 with a PT of 17.3. As for the renal function, the patient continues to have impaired renal function with a creatinine of 4.8 with a mean of 72. Serum bicarb is a 13 and the sodium is at 134. Potassium is at 5.0. Urine cultures are still negative and the patient is covered with IV Zosyn as an empiric antibiotic coverage. Coumadin was restarted. Consultation was placed for urology. Objective - Vital Signs Vital signs: Vital Signs Temp 97.6 F 04/29/20 12:00 Pulse 81 04/29/20 12:00 Resp 13 04/29/20 12:00 BP 83/59 04/29/20 12:00 Pulse Ox 95 04/29/20 12:00 Intake & Output 04/28/20 04/29/20 04/29/20 18:59 06:59 18:59 Intake Total 146.091 3517 599.689 Output Total 380 523 390 Balance -110.635 627 209.689 Weight 87.997 kg 94.3 kg Intake: IV 260 1050 310 Sodium Chloride 0.9% 1, 260 675 000 ml @ 130 mls/hr IV . [id number] STA Rx#:[id number] Sodium Chloride 0.9% 1, 375 310 000 ml @ 75 mls/hr IV Intake, IV Titration 9.365 100 289.689 Amount Dextrose 5% in Water 1, 100 000 ml @ 100 mls/hr IV . [id number] NENA with Sodium Bicarb (1 Meq/ml) 150 ml Rx#:[id number] Norepinephrine 8 mg In 9.365 89.689 Sodium Chloride 0.9% 250 ml @ 0.05 MCG/KG/MIN 8. 514 mls/hr IV .Q24H NENA Rx#:[id number] Piperacillin-Tazobactam 3 100 100 .375 gm In Sodium Chloride 0.9% 100 ml @ 25 mls/hr IVPB Q8HR NENA Rx# :[id number] Output: Urine 380 523 390 Other: Voiding Method Indwelling Catheter Indwelling Catheter - Exam General Appearance no diaphoresis, dyspnea, pallor, or respiratory distress and speech not interrupted by breaths, not cachectic, well nourished, appears well, and obesity. HEENT no pursed lip breathing, jugular venous distention, mucous membrane cyanosis, or perioral cyanosis and mallampati classification: class 1 and Mallampati Classification: Class 4. Chest no retractions, rhonchi, hyperinflation, barrel chest, sternocleidomastoid muscle contractions, supraclavicular retractions, intercostal retractions, prolonged expiratory wheezing, or decreased air movement and decreased air movement. Heart no right ventricular heave, distant heart sounds, or s3 gallop and irregular heart rhythm: totally irregular; irregular, secondary to AFIB. GI bowel sounds: hyperactive (borborygmi) and diminished or absent. Extremities no cyanosis, clubbing, or edema. Neurologic improved her mentation compared to yesterday and the patient is awake and alert and following commands and answering questions appropriately.. Skin: General Appearance normal and (normal) normal except as no lacey. - Labs CBC & Chem 7: 04/29/20 04:36 04/29/20 04:36 Labs: Abnormal Lab Results - Last 24 Hours (Table) 04/28/20 04/28/20 04/28/20 Range/Units 12:44 12:44 12:44 MCHC (31.0-37.0) g/dL RDW (11.5-15.5) % Plt Count 50 L (150-450) k/uL Lymphocytes # 0.7 L (1.0-4.8) k/uL PT 13.4 H (9.0-12.0) sec INR 1.3 H (<1.2) D-Dimer (<0.60) mg/L FEU Sodium 133 L (137-145) mmol/L Chloride 109 H (98-107) mmol/L Carbon Dioxide 13 L (22-30) mmol/L BUN 76 H (7-17) mg/dL Creatinine 4.98 H (0.52-1.04) mg/dL Glucose 115 H (74-99) mg/dL POC Glucose (mg/dL) (75-99) mg/dL Calcium 7.8 L (8.4-10.2) mg/dL Phosphorus (2.5-4.5) mg/dL Total Protein 5.2 L (6.3-8.2) g/dL Albumin 2.7 L (3.5-5.0) g/dL Procalcitonin (0.02-0.09) ng/mL TSH (0.465-4.680) mIU/L Urine Appearance (Clear) Urine Protein (Negative) Urine Blood (Negative) Ur Leukocyte Esterase (Negative) Urine RBC (0-5) /hpf Urine WBC (0-5) /hpf Urine WBC Clumps (None) /hpf Urine Bacteria (None) /hpf Urine Mucus (None) /hpf 04/28/20 04/28/20 04/28/20 Range/Units 15:52 16:43 16:56 MCHC (31.0-37.0) g/dL RDW (11.5-15.5) % Plt Count (150-450) k/uL Lymphocytes # (1.0-4.8) k/uL PT (9.0-12.0) sec INR (<1.2) D-Dimer 0.76 H (<0.60) mg/L FEU Sodium (137-145) mmol/L Chloride (98-107) mmol/L Carbon Dioxide (22-30) mmol/L BUN (7-17) mg/dL Creatinine (0.52-1.04) mg/dL Glucose (74-99) mg/dL POC Glucose (mg/dL) 116 H (75-99) mg/dL Calcium (8.4-10.2) mg/dL Phosphorus (2.5-4.5) mg/dL Total Protein (6.3-8.2) g/dL Albumin (3.5-5.0) g/dL Procalcitonin (0.02-0.09) ng/mL TSH (0.465-4.680) mIU/L Urine Appearance Cloudy H (Clear) Urine Protein 3+ H (Negative) Urine Blood Moderate H (Negative) Ur Leukocyte Esterase Large H (Negative) Urine RBC 43 H (0-5) /hpf Urine WBC >182 H (0-5) /hpf Urine WBC Clumps Many H (None) /hpf Urine Bacteria Rare H (None) /hpf Urine Mucus Rare H (None) /hpf 04/28/20 04/28/20 04/28/20 Range/Units 17:12 17:12 20:25 MCHC (31.0-37.0) g/dL RDW (11.5-15.5) % Plt Count (150-450) k/uL Lymphocytes # (1.0-4.8) k/uL PT (9.0-12.0) sec INR (<1.2) D-Dimer (<0.60) mg/L FEU Sodium 133 L (137-145) mmol/L Chloride 111 H (98-107) mmol/L Carbon Dioxide 14 L (22-30) mmol/L BUN 72 H (7-17) mg/dL Creatinine 4.76 H (0.52-1.04) mg/dL Glucose 112 H (74-99) mg/dL POC Glucose (mg/dL) 214 H (75-99) mg/dL Calcium 7.4 L (8.4-10.2) mg/dL Phosphorus 6.2 H (2.5-4.5) mg/dL Total Protein 4.6 L (6.3-8.2) g/dL Albumin 2.5 L (3.5-5.0) g/dL Procalcitonin 0.20 H (0.02-0.09) ng/mL TSH 0.369 L (0.465-4.680) mIU/L Urine Appearance (Clear) Urine Protein (Negative) Urine Blood (Negative) Ur Leukocyte Esterase (Negative) Urine RBC (0-5) /hpf Urine WBC (0-5) /hpf Urine WBC Clumps (None) /hpf Urine Bacteria (None) /hpf Urine Mucus (None) /hpf 04/29/20 04/29/20 04/29/20 Range/Units 04:36 04:36 04:36 MCHC 30.8 L (31.0-37.0) g/dL RDW 16.1 H (11.5-15.5) % Plt Count (150-450) k/uL Lymphocytes # 0.5 L (1.0-4.8) k/uL PT 17.3 H (9.0-12.0) sec INR 1.8 H (<1.2) D-Dimer (<0.60) mg/L FEU Sodium 134 L (137-145) mmol/L Chloride 111 H (98-107) mmol/L Carbon Dioxide 13 L (22-30) mmol/L BUN 72 H (7-17) mg/dL Creatinine 4.82 H (0.52-1.04) mg/dL Glucose 189 H (74-99) mg/dL POC Glucose (mg/dL) (75-99) mg/dL Calcium 8.1 L (8.4-10.2) mg/dL Phosphorus 8.9 H (2.5-4.5) mg/dL Total Protein (6.3-8.2) g/dL Albumin (3.5-5.0) g/dL Procalcitonin (0.02-0.09) ng/mL TSH (0.465-4.680) mIU/L Urine Appearance (Clear) Urine Protein (Negative) Urine Blood (Negative) Ur Leukocyte Esterase (Negative) Urine RBC (0-5) /hpf Urine WBC (0-5) /hpf Urine WBC Clumps (None) /hpf Urine Bacteria (None) /hpf Urine Mucus (None) /hpf 04/29/20 Range/Units 11:41 MCHC (31.0-37.0) g/dL RDW (11.5-15.5) % Plt Count (150-450) k/uL Lymphocytes # (1.0-4.8) k/uL PT (9.0-12.0) sec INR (<1.2) D-Dimer (<0.60) mg/L FEU Sodium (137-145) mmol/L Chloride (98-107) mmol/L Carbon Dioxide (22-30) mmol/L BUN (7-17) mg/dL Creatinine (0.52-1.04) mg/dL Glucose (74-99) mg/dL POC Glucose (mg/dL) 221 H (75-99) mg/dL Calcium (8.4-10.2) mg/dL Phosphorus (2.5-4.5) mg/dL Total Protein (6.3-8.2) g/dL Albumin (3.5-5.0) g/dL Procalcitonin (0.02-0.09) ng/mL TSH (0.465-4.680) mIU/L Urine Appearance (Clear) Urine Protein (Negative) Urine Blood (Negative) Ur Leukocyte Esterase (Negative) Urine RBC (0-5) /hpf Urine WBC (0-5) /hpf Urine WBC Clumps (None) /hpf Urine Bacteria (None) /hpf Urine Mucus (None) /hpf Microbiology - Last 24 Hours (Table) 04/28/20 16:56 Urine Culture - Preliminary Urine,Catheterized Assessment and Plan Plan: 1 acute hypotension, not responsive to fluids and the patient will be started on pressors. No significant leukocytosis and no fever. Consider underlying infection/sepsis and the patient was diagnosed having a UTI on 04/24/2020. Cultures are all negative. The patient was receiving Levaquin on outpatient basis.. The pro calcitonin level was at 0.2 which is mildly elevated and this may potentially indicate an infectious cause. The patient overnight received a total of 47 fluid and the patient is currently on pressors still. Highly considered an underlying infection/septic shock. The echocardiogram was essentially within normal limits. 2 acute kidney injury on top of chronic stage III kidney disease. 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
--- NOTE | 2020-04-29 15:55 | PN ---
PROGRESS NOTE DATE OF SERVICE: 04/29/2020 This is a 74-year-old woman who was admitted with severe acute hypertension postoperatively, also had acute tubular necrosis and renal failure. Patient is on a small dose of Levophed at this time. A 2D echo with Doppler was done which showed ejection fraction about 50% and mild to moderate tricuspid regurgitation and mild to moderate pulmonary hypertension was also noted. Otherwise, multiple consultants are following the patient closely. An abdominal bladder ultrasound was done which showed small cyst in the lower pole of the right kidney. No evidence of any kidney lesions and the bladder was empty. The most recent chest x-ray done last night showed no acute abnormality. The creatinine is today at 4.82, CO2 is 30, indicating metabolic acidosis. The patient is started on bicarb drip as well. Nephrology following the patient closely. The patient also had UTI. The cultures are pending. Currently patient is started on IV Unasyn. PAST MEDICAL HISTORY: Reviewed. REVIEW OF SYSTEMS: CARDIOVASCULAR SYSTEM: No angina. RESPIRATION: As mentioned earlier. GI: As mentioned earlier. : As mentioned earlier. NERVOUS SYSTEM: No numbness or weakness. CURRENT MEDICATIONS: Reviewed include Tylenol p.r.n., Zyloprim 100 mg t.i.d., Colazal, Dextrose, Synthroid, Imodium, multivitamins, Narcan, Norepinephrine, Protonix, Zosyn, Lyrica, Coumadin. Doses were reviewed. PHYSICAL EXAMINATION: Patient is alert and oriented x2. Pulse 81, blood pressure 83/59, respiration 13, temperature 97.2, pulse ox 94% on room air. HEENT: Conjunctivae normal. Oral mucosa moist. NECK: No jugular venous distention. No lymph node enlargement. CARDIOVASCULAR: S1, S2, muffled. RESPIRATIONS: Breath sounds diminished at the bases, no wheeze, no rhonchi, no crackles. ABDOMEN: Soft, nontender. No mass palpable. LEGS: No edema. NERVOUS SYSTEM: No focal deficits. LABS: At this time shows CBC within normal limits and sodium 134, potassium 5 and CO2 is 13. ASSESSMENT: 1. Severe acute hypotension, possibly secondary to acute tubular necrosis and renal failure. 2. Severe hypotension secondary to dehydration, hypovolemia with possible sepsis. 3. Hyponatremia. 4. Possible UTI. 5. Metabolic acidosis. 6. Thrombocytopenia. 7. History of recent urinary tract infection. 8. History of asthma, fibromyalgia. 9. Hypertension. 10.History of degenerative joint disease. 11.History rheumatoid arthritis. 12.Sleep apnea. 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 14.History of post-polio syndrome. 15.History of aortic regurgitation. 16.History of cholecystectomy. 17.History of motion sickness. 18.History of depression. 19.Hypoalbuminemia. RECOMMENDATION: Recommend to continue current management and symptomatic treatment. Continue with the pressor support. Continue with IV fluids. Continue broad spectrum IV antibiotics. Follow the cultures. Monitor electrolytes closely. Creatinine is still elevated, follow closely with multiple consultants. Neurology evaluation. Nephrology evaluation. Prognosis guarded because of multiple complex medical issues. Further recommendations to follow. MMODL / IJN: [id number] /
[2020-04-29 17:06] LABS: Glucose,Whole Blood 264 mg/dL (75-99)
[2020-04-29] MEDS: INSULIN ASPART (NovoLOG) 100 UNIT/ML VIAL SQ SCH ×2 (17:51→20:37)
[2020-04-29] MEDS ORDERED: WARFARIN 2 MG TAB PO SCH (18:00)
[2020-04-29] MEDS ORDERED: WARFARIN 2 MG TAB PO ONE (18:00)
[2020-04-29] MEDS: NOREPINEPHRINE 8 MG in SODIUM CHLORIDE 0.9% 250 ML IV SCH (18:44)
--- NOTE | 2020-04-29 19:23 | P.GSCN ---
History of Present Illness Consult date: 04/29/20 Reason for Consult: Cystitis, renal failure Requesting physician: Sury Collins History of present illness: The patient is a 74-year-old white female who recently presented with dysuria, nocturia 1, and urgency with urge incontinence. Urinalysis showed evidence of pyuria, but a urine culture was negative. A renal ultrasound showed bilateral renal cysts. Cystoscopy showed diffuse erythema suggestive of cystitis, and urine cytology showed inflammatory cells with no evidence of malignancy. Urine cultures in the past year been predominantly negative. In fact, all 6 urine culture performed at [facility] in 2019 have been negative, most recently on April 24 and April 28. She was scheduled to undergo cystoscopy with bladder biopsies on 04/28/2020 at [facility], and when she arrived she was noted to be hypotensive. She had recently been placed on antibiotics for a presumed UTI and experienced diarrhea as a result of this. She has a known history of renal insufficiency, and her serum creatinine level was noted to be 3.6 on 04/21/2020, up from 1.8 in January 2020. Consideration was given to canceling her procedure yesterday, but she and her family insisted that the procedure be performed. It was performed under IV sedation to avoid general anesthesia. The predominant erythema was noted at the bladder dome, raising suspicion of an enterovesical fistula. She was treated with IV hydration and vasopressors, but the hypotension persisted. She was thus transferred to the e mergency room at [facility] and admitted. A renal ultrasound was obtained, showing no evidence of hydronephrosis. Review of Systems - Constitutional Reports weakness, Denies fever - Genitourinary Genitourinary: Reports dysuria Past Medical History Past Medical History: Asthma, Fibromyalgia, Hypertension, Osteoarthritis (OA), Rheumatoid Arthritis (RA), Sleep Apnea/CPAP/BIPAP, Thyroid Disorder Additional Past Medical History / Comment(s): Obstructive sleep apnea, mild intermittent bronchial asthma, chronic atrial fibrillation, ALLERGIC rhinitis, diabetes mellitus, hypertension, chronic kidney disease, obesity, history of left tibial plateau fracture, inflammatory bowel disease, post polio syndrome, hypertension, osteoarthritis, fibromyalgia, hypothyroidism, 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 "Dr. Abdi Riggs fixed a hole in my heart". Cardioversion. L3-4 lumber laminectomy. Past Anesthesia/Blood Transfusion Reactions: Motion Sickness, Postoperative Nausea & Vomiting (PONV) Additional Past Anesthesia/Blood Transfusion Reaction / Comm: has letter from "lindsay packer dr with anesthesia recommendations" pt to bring with her. "takes long time to come out of anesthesia" Past Psychological History: Depression Smoking Status: Never smoker Past Alcohol Use History: Occasional Past Drug Use History: None Reported - Past Family History Father Family Medical History: Myocardial Infarction ([place]) Mother Family Medical History: Cancer Additional Family Medical History / Comment(s): Suspected. Medications and Allergies Home Medications Medication Instructions Recorded Confirmed Type Levothyroxine Sodium [Synthroid] 88 mcg PO DAILY 04/08/14 04/28/20 History Loperamide [Imodium] 4 mg PO DAILY PRN 04/08/14 04/28/20 History Mesalamine [Lialda] 1.2 gm PO BID 04/08/14 04/28/20 History Acetaminophen [Tylenol Extra 500 mg PO DAILY PRN 08/01/18 04/28/20 History Strength] Omeprazole [PriLOSEC] 20 mg PO AC-BRKFST PRN 08/01/18 04/28/20 History allopurinoL [Zyloprim] 100 mg PO TID 08/01/18 04/28/20 History Pregabalin [Lyrica] 200 mg PO BID 08/08/18 04/28/20 History Diphenox-Atrop 2.5-0.025 mg 2 tab PO HS PRN 11/08/19 04/28/20 History [Lomotil] Ferrous Sulfate [Iron (65 MG 325 mg PO DAILY 11/08/19 04/28/20 History Elemental)] Fluticasone Nasal [place] [Flonase 2 spr EA NOSTRIL DAILY PRN 11/08/19 04/28/20 History Nasal [place]] Keybiotics 1 tab PO DAILY 11/08/19 04/28/20 History Metoprolol Tartrate [Lopressor] 25 mg PO TID 11/08/19 04/28/20 History Metoprolol Tartrate [Lopressor] 50 mg PO TID 11/08/19 04/28/20 History HYDROcodone/APAP 5-325MG [[place] 1 tab PO Q6HR PRN #12 tab 04/24/20 04/28/20 Rx 5-325] Multivitamins, Thera [Multivitamin 1 tab PO DAILY 04/28/20 04/28/20 History (formulary)] Warfarin [Coumadin] 2 mg PO SUTUTH 04/28/20 04/28/20 History Warfarin [Coumadin] 3 mg PO MOWEFRSA 04/28/20 04/28/20 History Allergies Allergy/AdvReac Type Severity Reaction Status Date / Time nitrofurantoin Allergy Severe Rash/Hives Verified 04/28/20 14:03 [From Macrobid] nitrofurantoin Allergy Severe Rash/Hives Verified 04/28/20 14:03 macrocrystalline [From Macrobid] sulfamethoxazole Allergy Severe Rash/Hives Verified 04/28/20 14:03 [From Bactrim] trimethoprim [From Bactrim] Allergy Severe Rash/Hives Verified 04/28/20 14:03 hydromorphone HCl AdvReac Severe Nausea & Verified 04/28/20 14:03 [From Dilaudid] Vomiting Surgical - Exam Vital Signs Temp Pulse Resp BP Pulse Ox 98.0 F 82 14 115/93 94 L 04/28/20 12:07 04/28/20 12:07 04/28/20 12:07 04/28/20 12:07 04/28/20 12:07 - General well developed, well nourished, no distress - Abdomen Abdomen: soft, non tender, no guarding, no rigid, no rebound - Psychiatric oriented to time, oriented to person, oriented to place, speech is normal, memory intact Results - Labs 04/29/20 04:36 04/29/20 04:36 Abnormal Lab Results - Last 24 Hours (Table) 04/28/20 04/28/20 04/28/20 Range/Units 12:44 12:44 12:44 MCHC (31.0-37.0) g/dL RDW 16.0 H (11.5-15.5) % Plt Count 50 L (150-450) k/uL Lymphocytes # 0.7 L (1.0-4.8) k/uL PT 13.4 H (9.0-12.0) sec INR 1.3 H (<1.2) D-Dimer (<0.60) mg/L FEU Sodium 133 L (137-145) mmol/L Chloride 109 H (98-107) mmol/L Carbon Dioxide 13 L (22-30) mmol/L BUN 76 H (7-17) mg/dL Creatinine 4.98 H (0.52-1.04) mg/dL Glucose 115 H (74-99) mg/dL POC Glucose (mg/dL) (75-99) mg/dL Calcium 7.8 L (8.4-10.2) mg/dL Phosphorus (2.5-4.5) mg/dL Total Protein 5.2 L (6.3-8.2) g/dL Albumin 2.7 L (3.5-5.0) g/dL Procalcitonin (0.02-0.09) ng/mL TSH (0.465-4.680) mIU/L Urine Appearance (Clear) Urine Protein (Negative) Urine Blood (Negative) Ur Leukocyte Esterase (Negative) Urine RBC (0-5) /hpf Urine WBC (0-5) /hpf Urine WBC Clumps (None) /hpf Urine Bacteria (None) /hpf Urine Mucus (None) /hpf 04/28/20 04/28/20 04/28/20 Range/Units 15:52 16:43 16:56 MCHC (31.0-37.0) g/dL RDW (11.5-15.5) % Plt Count (150-450) k/uL Lymphocytes # (1.0-4.8) k/uL PT (9.0-12.0) sec INR (<1.2) D-Dimer 0.76 H (<0.60) mg/L FEU Sodium (137-145) mmol/L Chloride (98-107) mmol/L Carbon Dioxide (22-30) mmol/L BUN (7-17) mg/dL Creatinine (0.52-1.04) mg/dL Glucose (74-99) mg/dL POC Glucose (mg/dL) 116 H (75-99) mg/dL Calcium (8.4-10.2) mg/dL Phosphorus (2.5-4.5) mg/dL Total Protein (6.3-8.2) g/dL Albumin (3.5-5.0) g/dL Procalcitonin (0.02-0.09) ng/mL TSH (0.465-4.680) mIU/L Urine Appearance Cloudy H (Clear) Urine Protein 3+ H (Negative) Urine Blood Moderate H (Negative) Ur Leukocyte Esterase Large H (Negative) Urine RBC 43 H (0-5) /hpf Urine WBC >182 H (0-5) /hpf Urine WBC Clumps Many H (None) /hpf Urine Bacteria Rare H (None) /hpf Urine Mucus Rare H (None) /hpf 04/28/20 04/28/20 04/28/20 Range/Units 17:12 17:12 20:25 MCHC (31.0-37.0) g/dL RDW (11.5-15.5) % Plt Count (150-450) k/uL Lymphocytes # (1.0-4.8) k/uL PT (9.0-12.0) sec INR (<1.2) D-Dimer (<0.60) mg/L FEU Sodium 133 L (137-145) mmol/L Chloride 111 H (98-107) mmol/L Carbon Dioxide 14 L (22-30) mmol/L BUN 72 H (7-17) mg/dL Creatinine 4.76 H (0.52-1.04) mg/dL Glucose 112 H (74-99) mg/dL POC Glucose (mg/dL) 214 H (75-99) mg/dL Calcium 7.4 L (8.4-10.2) mg/dL Phosphorus 6.2 H (2.5-4.5) mg/dL Total Protein 4.6 L (6.3-8.2) g/dL Albumin 2.5 L (3.5-5.0) g/dL Procalcitonin 0.20 H (0.02-0.09) ng/mL TSH 0.369 L (0.465-4.680) mIU/L Urine Appearance (Clear) Urine Protein (Negative) Urine Blood (Negative) Ur Leukocyte Esterase (Negative) Urine RBC (0-5) /hpf Urine WBC (0-5) /hpf Urine WBC Clumps (None) /hpf Urine Bacteria (None) /hpf Urine Mucus (None) /hpf 08/01/1304/29/20 04/29/20 Range/Units 04:36 04:36 04:36 MCHC 30.8 L (31.0-37.0) g/dL RDW 16.1 H (11.5-15.5) % Plt Count (150-450) k/uL Lymphocytes # 0.5 L (1.0-4.8) k/uL PT 17.3 H (9.0-12.0) sec INR 1.8 H (<1.2) D-Dimer (<0.60) mg/L FEU Sodium 134 L (137-145) mmol/L Chloride 111 H (98-107) mmol/L Carbon Dioxide 13 L (22-30) mmol/L BUN 72 H (7-17) mg/dL Creatinine 4.82 H (0.52-1.04) mg/dL Glucose 189 H (74-99) mg/dL POC Glucose (mg/dL) (75-99) mg/dL Calcium 8.1 L (8.4-10.2) mg/dL Phosphorus 8.9 H (2.5-4.5) mg/dL Total Protein (6.3-8.2) g/dL Albumin (3.5-5.0) g/dL Procalcitonin (0.02-0.09) ng/mL TSH (0.465-4.680) mIU/L Urine Appearance (Clear) Urine Protein (Negative) Urine Blood (Negative) Ur Leukocyte Esterase (Negative) Urine RBC (0-5) /hpf Urine WBC (0-5) /hpf Urine WBC Clumps (None) /hpf Urine Bacteria (None) /hpf Urine Mucus (None) /hpf Microbiology - Last 24 Hours (Table) 04/28/20 16:56 Urine Culture - Preliminary Urine,Catheterized Diabetes panel 04/28/20 04/28/20 04/29/20 Range/Units 12:44 17:12 04:36 Sodium 133 L 133 L 134 L (137-145) mmol/L Potassium 4.5 4.2 5.0 (3.5-5.1) mmol/L Chloride 109 H 111 H 111 H (98-107) mmol/L Carbon Dioxide 13 L 14 L 13 L (22-30) mmol/L BUN 76 H 72 H 72 H (7-17) mg/dL Creatinine 4.98 H 4.76 H 4.82 H (0.52-1.04) mg/dL Glucose 115 H 112 H 189 H (74-99) mg/dL Calcium 7.8 L 7.4 L 8.1 L (8.4-10.2) mg/dL AST 26 18 (14-36) U/L ALT 13 12 (4-34) U/L Alkaline Phosphatase 76 91 (38-126) U/L Total Protein 5.2 L 4.6 L (6.3-8.2) g/dL Albumin 2.7 L 2.5 L (3.5-5.0) g/dL Thyroid panel 04/28/20 Range/Units 17:12 TSH 0.369 L (0.465-4.680) mIU/L Calcium panel 04/28/20 04/28/20 04/29/20 Range/Units 12:44 17:12 04:36 Calcium 7.8 L 7.4 L 8.1 L (8.4-10.2) mg/dL Phosphorus 6.2 H 8.9 H (2.5-4.5) mg/dL Albumin 2.7 L 2.5 L (3.5-5.0) g/dL Pituitary panel 04/28/20 04/28/20 04/29/20 Range/Units 12:44 17:12 04:36 Sodium 133 L 133 L 134 L (137-145) mmol/L Potassium 4.5 4.2 5.0 (3.5-5.1) mmol/L Chloride 109 H 111 H 111 H (98-107) mmol/L Carbon Dioxide 13 L 14 L 13 L (22-30) mmol/L BUN 76 H 72 H 72 H (7-17) mg/dL Creatinine 4.98 H 4.76 H 4.82 H (0.52-1.04) mg/dL Glucose 115 H 112 H 189 H (74-99) mg/dL Calcium 7.8 L 7.4 L 8.1 L (8.4-10.2) mg/dL TSH 0.369 L (0.465-4.680) mIU/L Adrenal panel 04/28/20 04/28/20 04/29/20 Range/Units 12:44 17:12 04:36 Sodium 133 L 133 L 134 L (137-145) mmol/L Potassium 4.5 4.2 5.0 (3.5-5.1) mmol/L Chloride 109 H 111 H 111 H (98-107) mmol/L Carbon Dioxide 13 L 14 L 13 L (22-30) mmol/L BUN 76 H 72 H 72 H (7-17) mg/dL Creatinine 4.98 H 4.76 H 4.82 H (0.52-1.04) mg/dL Glucose 115 H 112 H 189 H (74-99) mg/dL Calcium 7.8 L 7.4 L 8.1 L (8.4-10.2) mg/dL Total Bilirubin 0.7 0.4 (0.2-1.3) mg/dL AST 26 18 (14-36) U/L ALT 13 12 (4-34) U/L Alkaline Phosphatase 76 91 (38-126) U/L Total Protein 5.2 L 4.6 L (6.3-8.2) g/dL Albumin 2.7 L 2.5 L (3.5-5.0) g/dL - Imaging US - kidney/bladder: report reviewed Assessment and Plan Plan: Agree with IV hydration and use of vasopressors as needed. I believe the deterioration of the patient's renal function is due to her hypotension, and I am hopeful that her renal function will stabilize and then gradually improved. I do not believe her condition is due to urinary sepsis, given two negative urine cultures in the past week. The Peoples catheter was currently draining clear yellow urine. I had hoped that the Coumadin could be held for 1 week, but given her current status I would suggest that she receive SQ heparin.
[2020-04-29 20:23] LABS: Glucose,Whole Blood 229 mg/dL (75-99)
--- NOTE | 2020-04-29 20:25 | CONS ---
CONSULTATION REASON FOR CONSULT: Renal failure. HISTORY OF PRESENT ILLNESS: Patient is a 74-year-old female who has a history of chronic kidney disease and follows with a screwhead stoner and polisher out of town, Dr. Patel. Patient lives in [place]. She has not been to her screwhead stoner and polisher in more than a year. Patient is not aware of her baseline renal function. She was admitted to the hospital with a history of hypotension while she was having a bladder biopsy with Dr. Jack from Urology. The patient has been hypotensive. She is maintained on a small amount of Levophed. She has not had any fever. She did report some diarrhea prior to admission. Serum creatinine was 4.98 yesterday and it is 4.82 today. Patient's urine output was low initially; however, it seems to have picked up now. Review of previous labs shows a creatinine of 1.8 and 2 in January and October of 2019. Patient denies use of any nonsteroidal anti-inflammatory agents. She was not on any FRANCIS inhibitors or angiotensin receptor blockers prior to admission. Currently patient has an indwelling Peoples catheter. 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 MMODL / IJN: [id number] /
--- NOTE | 2020-04-29 20:31 | CONS ---
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 PAST SURGICAL HISTORY: Cholecystectomy, cardiac catheterization, hernia repair, hysterectomy, tubal ligation, vaginal wall suspension, cardioversion, laminectomy. SOCIAL HISTORY: Negative for smoking, drug abuse or alcohol abuse. MEDICATIONS: Medications at home prior to admission included Synthroid, Imodium, mesalamine, Prilosec, Zyloprim, Lyrica, Lomotil, Lopressor, Coumadin, Secretary. ALLERGIES: ALLERGIES are multiple and include MACROBID, BACTRIM, DILAUDID. REVIEW OF SYSTEMS: As per HPI. Other systems negative. PHYSICAL EXAMINATION: Patient is comfortable, awake, alert, oriented x3. She is not in any acute distress. Blood pressure was 112/77, heart rate 75 per minute. She is afebrile. EXAMINATION OF THE HEART: S1 and S2. EXAMINATION OF LUNGS: Bilateral breath sounds are heard. ABDOMEN: Soft, non-tender, obese. Examination of lower extremities shows no significant edema. CABINET MOUNTER exam is grossly intact. LABS: Labs show sodium 134, potassium 5.0, chloride 111. CO2 is 13, BUN 72, creatinine 4.8. UA shows 3+ protein, WBCs more than 182, leukocyte esterase large. ASSESSMENT: 1. Acute kidney injury, mostly acute tubular necrosis, nonoliguric, associated with hypotension and hypoperfusion. Urine output was low initially. Currently it has improved. 2. Severe metabolic acidosis. Will start patient on IV bicarb. She did have some diarrhea prior to admission. Etiology is secondary to worsening renal failure as well as GI fluid loss, mostly non-gap metabolic acidosis. 3. Hypotension, currently maintained on pressors and maintained on IV fluids. Hopefully it will improve with correction of acidosis. Patient is maintained on empiric antibiotics as well. 4. Pyuria with previous urine culture negative. Patient was having a bladder biopsy done as outpatient. She does follow up with Urology. 5. Chronic atrial fibrillation with controlled ventricular response. 6. Obstructive sleep apnea. 7. Chronic kidney disease, NKF stage 3B to 4, with previous creatinine 1.8 mg/dL. Previously seen by a financial adviser out of town. Patient, however, will follow up locally post discharge. Etiology of CKD is possible underlying GN versus nephrosclerosis. Patient does have proteinuria; however, there is significant pyuria also. Her kidney size is fair, about 9.1 to 9.2 cm. There is a small cyst on the lower pole of the right kidney. PLAN: Start IV bicarb. Repeat labs in a.m. Continue to avoid nephrotoxic agents. Continue with Peoples catheter. Wean down pressors. Check cortisol level if not checked yet. Thank you for this consultation. Will continue to follow the patient with you during her hospitalization. MMODL / IJN: [id number] /
[2020-04-30 04:40] LABS: Anisocytosis Slight; Basophils % (A) 0 %; Eosinophils % (A) 0 %; HCT 34.9 % (34.0-46.0); HGB 10.7 gm/dL (11.4-16.0); Hypochromasia Moderate; Lymphocytes # (A) 0.8 k/uL (1.0-4.8); Lymphocytes % (A) 12 %; MCH 30.1 pg (25.0-35.0); MCHC 30.7 g/dL (31.0-37.0); MCV 97.8 fL (80.0-100.0); Macrocytosis Slight; Mean Platelet Volume 9.3; Monocytes # (A) 0.4 k/uL (0-1.0); Monocytes % (A) 6 %; Neutrophils % (A) 80 %; Platelet Count 122 k/uL (150-450); Poikilocytosis Slight; RBC 3.57 m/uL (3.80-5.40); RDW 16.1 % (11.5-15.5); WBC 6.3 k/uL (3.8-10.6)
[2020-04-30 04:45] LABS: INR 2.2 (<1.2); Prothrombin Time 21.4 sec (9.0-12.0)
[2020-04-30 04:52] LABS: Calcium 7.1 mg/dL (8.4-10.2)
[2020-04-30] MEDS: LEVOTHYROXINE 88 MCG TAB PO SCH (06:00)
[2020-04-30] MEDS: DEXTROSE 5% IN WATER 1,000 ML with SODIUM BICARB (1 MEQ/ML) 150 ML IV SCH ×2 (06:45→18:50)
[2020-04-30] MEDS: INSULIN ASPART (NovoLOG) 100 UNIT/ML VIAL SQ SCH ×4 (06:56→21:24)
[2020-04-30] MEDS: PIPERACILLIN-TAZOBACTAM 3.375 GM in SODIUM CHLORIDE 0.9% 100 ML IVPB SCH (08:12)
[2020-04-30] MEDS: PREGABALIN 100 MG CAP PO SCH ×2 (08:12→21:24)
[2020-04-30] MEDS: MULTIVITAMINS, THERA 1 EACH TAB PO SCH (08:12)
[2020-04-30] MEDS: BALSALAZIDE DISODIUM 750 MG CAPSULE PO SCH ×3 (08:12→21:25)
[2020-04-30] MEDS: allopurinoL 100 MG TAB PO SCH ×3 (08:12→21:24)
[2020-04-30] MEDS: IOPAMIDOL CONTRAST (ORAL USE) VIAL PO PRN ×2 (10:14→11:19)
[2020-04-30 11:43] LABS: Glucose,Whole Blood 190 mg/dL (75-99)
--- NOTE | 2020-04-30 12:20 | CT ---
EXAMINATION TYPE: CT abdomen pelvis wo con DATE OF EXAM: 04/30/2020 HISTORY: Acute renal failure, hypotension and UTI. Abdominal pain, cystitis, possible fistula. CT DLP: 1068.4 mGycm. Automated Exposure Control for Dose Reduction was Utilized. TECHNIQUE: CT scan of the abdomen and pelvis is performed with oral but without IV contrast. COMPARISON: NONE FINDINGS: Within the limitations of a non-contrast study, the following observations are made. LUNG BASES: Mild to moderate linear scarring and/or atelectasis in the left lung base. LIVER/GB: Cholecystectomy clips. PANCREAS: Moderate generalized atrophy. SPLEEN: No significant abnormality is seen. ADRENALS: No significant abnormality is seen. KIDNEYS: There is cortical thinning bilaterally. No renal stones or hydronephrosis bilaterally. Peoples catheter in decompressed bladder with moderate ill-defined fluid and fat stranding along the superio r margin. This could reflect inflammation or product of well-defined tiny pelvic ascites. Due to line ar-appearing sinus tracts cannot be excluded BOWEL: Moderate-sized hiatal hernia and contrast in the hiatal hernia and mid to distal esophagus sug gests probable reflux or underlying esophageal dysmotility. Correlate clinically. Oral contrast does not reach level of terminal ileum making evaluation of distal ball somewhat suboptimal. No suspicious small bowel dilatation. Small bowel feces sign in the terminal ileum is present. Mild to moderate pr ominence of fecal material in the right and transverse colon. Diverticula in the left and sigmoid col on without convincing CT evidence for acute diverticulitis. GENITAL ORGANS: Uterus surgically absent or markedly atrophic. A few scattered pelvic phleboliths. LYMPH NODES: No greater than 1cm abdominal or pelvic lymph nodes are appreciated. OSSEOUS STRUCTURES: Slight underlying scoliotic curvature. Mild to moderate disc space narrowing L5-S 1 level along with right L4-L5 level with vacuum disc phenomenon along with endplate sclerosis and sp urring. OTHER: Mild subcutaneous edema throughout the abdomen and pelvis. Surgical clip right groin region ax ial image 87. IMPRESSION: 1. Suboptimal study as oral contrast does not reach terminal ileum level. If there is concern for col onic and/or bladder fistula further investigation would be warranted. Peoples catheter in decompressed bladder with poor definition and adjacent ill-defined fluid and fat stranding extending superiorly co uld reflect acute inflammation or infectious process at this level. 2. Overall nonobstructive bowel gas pattern. Delayed passage of ingested material to colonic level as small bowel feces sign is present. Mild to moderate proximal colonic fecal stasis. Distal colonic di verticulosis noted. No convincing evidence for acute diverticulitis currently.
[2020-04-30] MEDS ORDERED: COSYNTROPIN 0.25 MG VIAL IVP ONE (13:00)
--- NOTE | 2020-04-30 13:19 | CDI ---
Documentation Clarification Form Date: 04/30/2020 01:08:04 PM From: Ana Luisa Funez CCS, CCDS Admit Date: 04/28/2020 01:56:00 PM Patient Name: Amelia Colin Visit Number: [id number] Discharge Date: ATTENTION: The Clinical Documentation Specialists (CDI) and [facility] Coding Staff appreciate your assistance in clarifying documentation. Please respond to the clarification below the line at the bottom and electronically sign. The CDI & [facility] Coding staff will review the response and follow-up if needed. Please note: Queries are made part of the Legal Health Record. If you have any questions, please contact the author of this message via ITS. Dr. Racquel Johnson: CKD Stage 3B to 4 is documented in the 04/29 Nephrology Consult. 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 Clinical Indicators: Presented to the ED from Urology office, became hypotensive during bladder biopsy. Admitted with Hypotension possible due to Acute Renal Failure with ATN, Hyponatremia & Dehydration. Pre the Nephrology Consult: "Serum creatinine was 4.98 yesterday and it is 4.82 today. Review of previous labs shows a creatinine of 1.8 and 2 in January and October of 2019." GFR 04/28: 8; GFR 04/29: 8; GFR 04/30: 11 GFR 05/27/2017: 28 Treatment on admission 04/28: IV fluid rate 1,000 mls @ 130 mls/hr, IV Decadron, IV fluid bolus 1,000 mls @ 999 mls/hr, IV Rocephin, IV Norepinephrine Bitartrate/Na Cl. In order to capture the severity of condition, please clarify the stage of the CKD, if known: CKD Stage 3 (GFR 30-59) CKD Stage 4 (GFR 15-29) CKD Stage 5 (GFR <15) ESRD Other, please specify Unable to determine (Last Revision: October 2019) stage 3 MTDD
[2020-04-30 13:57] LABS: Hemoglobin A1C 7.1 % (4.0-6.0)
--- NOTE | 2020-04-30 14:05 | P.PN ---
Subjective Progress Note Date: 04/30/20 A 74-year-old female patient who got transferred to the emergency department from the outpatient surgical center as the patient was found to be quite weak and hypotensive. The patient reported that she hasn't been feeling good and her condition was declining since which is approximately 3 days ago. The patient was evaluated in emerged department on 04/24/2020 and the patient was diagnosed having a UTI based on the abnormal UA. Nevertheless, during cultures came back negative. At that time, the patient was discharged home on Levaquin 500 milligrams for a total of 5 days. Note that the patient was placed on antibiotics which cause extreme diarrhea and worsening of her underlying colit is. Today, the patient was supposed to have a cystoscopy for underlying bladder pain and dysfunction. She was found to be quite 6 and she was sent over.. No fever. No chills no focal neurological deficit. The blood work showed an acute on top of chronic kidney failure. The patient's baseline creatinine was around 1.8 and current creatinine is up to 4.9. Urine is up to 76. The patient is a component of non-anion gap metabolic acidosis with a gap of 11 and a serum bicarb of 13. Sodium is at 133. The white cell count is at 4.3. Platelet counts have dropped down to 50. The patient is already being given a total of 370 fluids and the patient is starting on norepinephrine for blood pressure support. The INR is subtherapeutic as the patient has chronic atrial fibrillation. Today's INR is at 1.3. The patient remains in atrial fibrillation. The rate of 87. 04/29/2020 I'm seeing the patient for a follow-up and she was seen in consultation yesterday. The patient is doing well. She is on normal saline at the rate of 75 mL an hour. She received a total of 4 L of IV fluid bolus and she is on norepinephrine infusion at 0.05 g per KG per minute. She is on room air oxygen with a pulse of 75%. Chest x-ray remains clear. Ultrasound of the kidneys have shown no evidence of any hydronephrosis. The kidneys of normal size and there is a small cyst in the lower portion of the right kidney. The echocardiogram showed atrial fibrillation. The patient has an ejection fraction of 50-55%. PA pressures around 45 mmHg and there is no evidence of any pulmonary hypertension. Blood work from today shows no significant leukocytosis. White cell count is at 5.8. INR is 1.8 with a PT of 17.3. As for the renal function, the patient continues to have impaired renal function with a creatinine of 4.8 with a mean of 72. Serum bicarb is a 13 and the sodium is at 134. Potassium is at 5.0. Urine cultures are still negative and the patient is covered with IV Zosyn as an empiric antibiotic coverage. Coumadin was restarted. Consultation was placed for urology. 04/30/2020, the patient is off pressors since 4:00 this morning. The patient is having some vague abdominal discomfort and it seems that she is constipated and she is to have a bowel movement. She is off levo fed. She is on a bicarb infusion at the rate of 100 mL an hour. She remains on empiric antibiotic cove rage with IV Zosyn. In terms of her blood work, the serum bicarb is improved and it's up to 18. The creatinine is up to 4.3 with a BUN of 71. Renal function obviously still impaired. The patient was again seen by urology. Apparently the patient has had multiple urine cultures all of them being negative. She has changes consistent with cystitis and biopsies were taken. She remains in atrial fibrillation. The patient has a therapeutic PT/INR with an INR of 2.2 and the heart rate is well-controlled for now. Altered mentation. No nausea. No vomiting. No abdominal pain. Note that she has history of inflammatory bowel disease. Objective - Vital Signs Vital signs: Vital Signs Temp 97.5 F L 04/30/20 12:30 Pulse 86 04/30/20 12:30 Resp 12 04/30/20 12:30 BP 88/68 04/30/20 12:30 Pulse Ox 90 L 04/30/20 12:30 Intake & Output 04/29/20 04/30/20 04/30/20 18:59 06:59 18:59 Intake Total 8544.170 6708.815 630 Output Total 864 530 300 Balance 736.616 920.815 330 Weight 97.1 kg Intake: IV 460 220 30 Sodium Chloride 0.9% 1, 460 220 30 000 ml @ 75 mls/hr IV Intake, IV Titration 9485.768 1551.815 600 Amount Dextrose 5% in Water 1, 900 1100 500 000 ml @ 100 mls/hr IV . [id number] NENA with Sodium Bicarb (1 Meq/ml) 150 ml Rx#:[id number] Norepinephrine 8 mg In 140.616 30.815 Sodium Chloride 0.9% 250 ml @ 0.05 MCG/KG/MIN 8. 514 mls/hr IV .Q24H ON LICENSE OF [facility] Rx#:[id number] Piperacillin-Tazobactam 3 100 .375 gm In Sodium Chloride 0.9% 100 ml @ 25 mls/hr IVPB Q12HR ON LICENSE OF [facility] Rx #:[id number] Piperacillin-Tazobactam 3 100 100 .375 gm In Sodium Chloride 0.9% 100 ml @ 25 mls/hr IVPB Q8HR ON LICENSE OF [facility] Rx# :[id number] Output: Urine 864 530 300 Other: Voiding Method Indwelling Catheter Indwelling Catheter Indwelling Catheter - Exam General Appearance no diaphoresis, dyspnea, pallor, or respiratory distress and speech not interrupted by breaths, not cachectic, well nourished, appears well, and obesity. HEENT no pursed lip breathing, jugular venous distention, mucous membrane cyanosis, or perioral cyanosis and mallampati classification: class 1 and Mallampati Classification: Class 4. Chest no retractions, rhonchi, hyperinflation, barrel chest, sternocleidomastoid muscle contractions, supraclavicular retractions, intercostal retractions, prolonged expiratory wheezing, or decreased air movement and decreased air movement. Heart no right ventricular heave, distant heart sounds, or s3 gallop and irregular heart rhythm: totally irregular; irregular, secondary to AFIB. GI bowel sounds: hyperactive (borborygmi) and diminished or absent. Extremities no cyanosis, clubbing, or edema. Neurologic improved her mentation compared to yesterday and the patient is awake and alert and following commands and answering questions appropriately.. Skin: General Appearance normal and (normal) normal except as noted. - Labs CBC & Chem 7: 04/30/20 03:52 04/30/20 03:52 Labs: Abnormal Lab Results - Last 24 Hours (Table) 04/29/20 04/29/20 04/30/20 Range/Units 17:04 20:22 03:52 RBC (3.80-5.40) m/uL Hgb (11.4-16.0) gm/dL MCHC (31.0-37.0) g/dL RDW (11.5-15.5) % Plt Count (150-450) k/uL Lymphocytes # (1.0-4.8) k/uL PT (9.0-12.0) sec INR (<1.2) Sodium (137-145) mmol/L Chloride (98-107) mmol/L Carbon Dioxide (22-30) mmol/L BUN (7-17) mg/dL Creatinine (0.52-1.04) mg/dL Glucose (74-99) mg/dL POC Glucose (mg/dL) 264 H 229 H (75-99) mg/dL Hemoglobin A1c 7.1 H (4.0-6.0) % Calcium (8.4-10.2) mg/dL 04/30/20 04/30/20 04/30/20 Range/Units 03:52 03:52 03:52 RBC 3.57 L (3.80-5.40) m/uL Hgb 10.7 L (11.4-16.0) gm/dL MCHC 30.7 L (31.0-37.0) g/dL RDW 16.1 H (11.5-15.5) % Plt Count 122 L (150-450) k/uL Lymphocytes # 0.8 L (1.0-4.8) k/uL PT 21.4 H (9.0-12.0) sec INR 2.2 H (<1.2) Sodium 135 L (137-145) mmol/L Chloride 108 H (98-107) mmol/L Carbon Dioxide 18 L (22-30) mmol/L BUN 71 H (7-17) mg/dL Creatinine 4.33 H (0.52-1.04) mg/dL Glucose 182 H (74-99) mg/dL POC Glucose (mg/dL) (75-99) mg/dL Hemoglobin A1c (4.0-6.0) % Calcium 7.1 L (8.4-10.2) mg/dL 04/30/20 Range/Units 11:41 RBC (3.80-5.40) m/uL Hgb (11.4-16.0) gm/dL MCHC (31.0-37.0) g/dL RDW (11.5-15.5) % Plt Count (150-450) k/uL Lymphocytes # (1.0-4.8) k/uL PT (9.0-12.0) sec INR (<1.2) Sodium (137-145) mmol/L Chloride (98-107) mmol/L Carbon Dioxide (22-30) mmol/L BUN (7-17) mg/dL Creatinine (0.52-1.04) mg/dL Glucose (74-99) mg/dL POC Glucose (mg/dL) 190 H (75-99) mg/dL Hemoglobin A1c (4.0-6.0) % Calcium (8.4-10.2) mg/dL Microbiology - Last 24 Hours (Table) 04/28/20 16:56 Urine Culture - Final Urine,Catheterized 04/28/20 14:34 Blood Culture - Preliminary Blood No Growth after 24 hours Assessment and Plan Plan: 1 acute hypotension, not responsive to fluids and the patient will be started on pressors. No significant leukocytosis and no fever. Consider underlying infection/sepsis and the patient was diagnosed having a UTI on 04/24/2020. Cultures are all negative. The patient was receiving Levaquin on outpatient basis.. The pro calcitonin level was at 0.2 which is mildly elevated and this may potentially indicate an infectious cause. Echo of the heart is within normal limits. The patient has been well resuscitated in the early this morning the patient was taken off the norepinephrine infusion. Currently she is on no pressors. 2 acute kidney injury on top of chronic stage III kidney disease. The patient has also developed a component of non-anion gap metabolic acidosis. The patient remains on a bicarb infusion. Serum bicarb is up to 18. Creatinine is still at 4.33. 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 The patient apparently had negative cultures. The patient intraoperatively was found to have diffuse erythema suggestive of cystitis despite the negative cultures. Biopsies were taken. Plan Continue bicarb infusion at the rate of 100 and hour Monitor electrolytes and monitor serum bicarbonate Monitor cultures and antibiotics will be discontinued upon the request of urology echocardiogram was noted Monitor PT/INR and adjust the Coumadin dose accordingly Obtain a CAT scan of the abdomen and pelvis with oral contrast We we will transfer this patient out of the intensive care unit today. She needs to be off the pressors for at least 6 hours prior to being transferred.
--- NOTE | 2020-04-30 14:56 | PN ---
PROGRESS NOTE Patient is seen for followup for acute kidney injury on top of chronic kidney disease. Patient is currently maintained on IV bicarb. Her serum creatinine is slightly improved at 4.3 from 4.8 yesterday. Urine output is at about 40-90 mL an hour. Overall, patient is complaining of rectal pain. She is going down for a CAT scan. She continues to have some loose bowel movements. C. difficile toxin is currently pending. No fevers. PHYSICAL EXAMINATION: Blood pressure was 99/64, heart rate 91 per minute, she is afebrile. Examination of the heart S1, S2. Examination of the lungs, decreased breath sounds at bases. Abdomen is soft. No significant tenderness noted. Exam of the lower extremities shows no significant edema. [employer] exam grossly intact. LABS: Show sodium 135, potassium 4.0, chloride 108, CO2 is 18, BUN 71, serum creatinine 4.3, hemoglobin 10.7 g/dL. ASSESSMENT: 1. Acute kidney injury secondary to hypotension, hypoperfusion, slightly improved with good urine output. Continue with the IV bicarb. 2. Hypotension. This could be related to adrenal insufficiency as serum cortisol level was only 1. The patient should have an ACTH stimulation test performed and she should see Endocrinology as outpatient. 3. Pyuria with no evidence of urinary tract infection. Patient was getting a bladder biopsy as outpatient when she developed significant hypotension. 4. Metabolic acidosis, non gap, status post bicarb drip. I will continue with the bicarb drip for now. The acidosis is improved. 5. Rectal pain, being taken down for a CAT scan of the abdomen. PLAN: We will perform the ACTH stimulation test. The patient will be started on steroids. She needs to see Endocrinology as outpatient for adrenal insufficiency. Cortisol level is 1, which is significantly low. MMODL / IJN: [id number] /
[2020-04-30 16:41] LABS: Glucose,Whole Blood 148 mg/dL (75-99)
[2020-04-30] MEDS: NOREPINEPHRINE 8 MG in SODIUM CHLORIDE 0.9% 250 ML IV SCH (16:46)
[2020-04-30] MEDS: PANTOPRAZOLE 40 MG TABLET PO SCH (17:20)
[2020-04-30] MEDS: ACETAMINOPHEN TAB 500 MG TAB PO PRN (17:35)
[2020-04-30] MEDS ORDERED: WARFARIN 2 MG TAB PO ONE (18:00)
[2020-04-30] MEDS ORDERED: WARFARIN 3 MG TAB PO SCH (18:00)
--- NOTE | 2020-04-30 18:03 | PN ---
PROGRESS NOTE DATE OF SERVICE: 04/30/2020 This 74-year-old woman who was admitted with acute severe hypotension postoperatively is being closely monitored at this time. The patient also had acute renal failure. Patient is on IV fluids. CT scan of the abdomen and pelvis was done which showed suboptimal study. Peoples catheter was visualized in a decompressed bladder. Overall nonobstructive bowel pattern was noted. Multiple consultants are following the patient, including Dr. Muir, Nephrology and Urology. The most recent cultures are negative, but last culture showed E coli and Klebsiella oxytoca and Enterobacter faecium. The patient is not on Zosyn anymore. I recommend infectious disease evaluation also. Guarded prognosis. Further recommendations to follow. MMODL / IJN: [id number] / [id number]
[2020-04-30] MEDS: HYDROCORTISONE SUCCINATE 100 MG/2 ML VIAL IV SCH (21:24)
[2020-04-30 21:31] LABS: Glucose,Whole Blood 216 mg/dL (75-99)
--- NOTE | 2020-04-30 21:53 | P.CONS ---
History of Present Illness - Reason for Consult Consult date: 04/30/20 sepsis ?? Requesting physician: Sury Collins - Chief Complaint Weakness and low blood pressure postprocedure x few days - History of Present Illness Patient is a 74 year female with past medical history significant for recurrent infection this patient has been exposed to multiple antibiotic therapy patient was recently seen in the [facility] for some urinary symptoms of patient complaining of burning in her bladder and some frequency patient did have a positive UA and was diagnosed with uterine contractions she was discharged on oral Levaquin after 3 doses so having significant diarrhea Levaquin was discontinued patient was scheduled for cystoscopy on 04/28/2020 currently chosen to have slightly elevated INR had did require medication. Her INR done patient did have a cystoscopy completed and was noticed to have inflammation on the upper lateral wall as per patient Daughter in the postop period the patient was noticed to be weak and hypotensive subsequently the patient has been admitted to the hospital for further workup of her hypertension patient on this admission Hospital has been afebrile the patient did have a normal white count she was noticed to have a positive UA and was started on Zosyn and subsequently blood culture came back negative Zosyn has been discontinued she is also complaining of diarrhea for the patient had did have a stool for C. diff which came back negative and is currently on Lomotil infection disease was consulted today with concern for possible sepsis. The patient is feeling better today since she has been admitted to the hospital however is complaining of burning pain to the suprapubic area intensity 5-6 out of 10 and no radiation no hematuria patient did mention that her diarrhea has slowed her has about 4 episodes today with no blood or mucus in the stools, with the inflammation predominantly at the dome of the urinary bladder at the time of cystoscopy there was a consideration for possible colovesical fistula patient did have a CT of abdominal pelvis completed oral contrast unfortunately the contrast did not reach beyond the ileum limiting its ability to define any colovesical fistula Review of Systems Positive point has been mentioned in the HPI rest of the systems are negative Past Medical History Past Medical History: Asthma, Fibromyalgia, Hypertension, Osteoarthritis (OA), Rheumatoid Arthritis (RA), Sleep Apnea/CPAP/BIPAP, Thyroid Disorder Additional Past Medical History / Comment(s): Obstructive sleep apnea, mild intermittent bronchial asthma, chronic atrial fibrillation, ALLERGIC rhinitis, diabetes mellitus, hypertension, chronic kidney disease, obesity, history of l eft tibial plateau fracture, inflammatory bowel disease, post polio syndrome, hypertension, osteoarthritis, fibromyalgia, hypothyroidism, 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 "Dr. Abdi Riggs fixed a hole in my heart". Cardioversion. L3-4 lumber laminectomy. Past Anesthesia/Blood Transfusion Reactions: Motion Sickness, Postoperative Nausea & Vomiting (PONV) Additional Past Anesthesia/Blood Transfusion Reaction / Comm: has letter from "post polio dr with anesthesia recommendations" pt to bring with her. "takes long time to come out of anesthesia" Past Psychological History: Depression Smoking Status: Never smoker Past Alcohol Use History: Occasional Past Drug Use History: None Reported - Past Family History Father Family Medical History: Myocardial Infarction (VT) Mother Family Medical History: Cancer Additional Family Medical History / Comment(s): Suspected. Medications and Allergies Home Medications Medication Instructions Recorded Confirmed Type Levothyroxine Sodium [Synthroid] 88 mcg PO DAILY 04/08/14 04/28/20 History Loperamide [Imodium] 4 mg PO DAILY PRN 04/08/14 04/28/20 History Mesalamine [Lialda] 1.2 gm PO BID 04/08/14 04/28/20 History Acetaminophen [Tylenol Extra 500 mg PO DAILY PRN 08/01/18 04/28/20 History Strength] Omeprazole [PriLOSEC] 20 mg PO AC-BRKFST PRN 08/01/18 04/28/20 History allopurinoL [Zyloprim] 100 mg PO TID 08/01/18 04/28/20 History Pregabalin [Lyrica] 200 mg PO BID 08/08/18 04/28/20 History Diphenox-Atrop 2.5-0.025 mg 2 tab PO HS PRN 11/08/19 04/28/20 History [Lomotil] Ferrous Sulfate [Iron (65 MG 325 mg PO DAILY 11/08/19 04/28/20 History Elemental)] Fluticasone Nasal [place] [Flonase 2 spr EA NOSTRIL DAILY PRN 11/08/19 04/28/20 History Nasal [place]] Keybiotics 1 tab PO DAILY 11/08/19 04/28/20 History Metoprolol Tartrate [Lopressor] 25 mg PO TID 11/08/19 04/28/20 History Metoprolol Tartrate [Lopressor] 50 mg PO TID 11/08/19 04/28/20 History HYDROcodone/APAP 5-325MG [[place] 1 tab PO Q6HR PRN #12 tab 04/24/20 04/28/20 Rx 5-325] Multivitamins, Thera [Multivitamin 1 tab PO DAILY 04/28/20 04/28/20 History (formulary)] Warfarin [Coumadin] 2 mg PO SUTUTH 04/28/20 04/28/20 History Warfarin [Coumadin] 3 mg PO MOWEFRSA 04/28/20 04/28/20 History Allergies Allergy/AdvReac Type Severity Reaction Status Date / Time nitrofurantoin Allergy Severe Rash/Hives Verified 04/28/20 14:03 [From Macrobid] nitrofurantoin Allergy Severe Rash/Hives Verified 04/28/20 14:03 macrocrystalline [From Macrobid] sulfamethoxazole Allergy Severe Rash/Hives Verified 04/28/20 14:03 [From Bactrim] trimethoprim [From Bactrim] Allergy Severe Rash/Hives Verified 04/28/20 14:03 hydromorphone HCl AdvReac Severe Nausea & Verified 04/28/20 14:03 [From Dilaudid] Vomiting Physical Exam Vitals: Vital Signs Temp Pulse Resp BP Pulse Ox 04/30/20 15:30 93 12 97/58 93 L 04/30/20 15:00 89 12 105/59 94 L 04/30/20 14:30 81 12 97/86 94 L 04/30/20 14:00 12 89 L 04/30/20 13:30 78 12 94 L 04/30/20 13:00 81 12 88/68 90 L 04/30/20 12:30 97.5 F L 86 12 88/68 90 L 04/30/20 11:30 95 10 L 96/53 04/30/20 11:00 89 12 89/72 97 04/30/20 10:30 91 12 99/64 95 04/30/20 10:00 89 12 89/60 95 04/30/20 09:30 12 124/66 91 L 04/30/20 09:00 81 12 97/63 04/30/20 08:30 86 12 108/93 96 04/30/20 08:00 97.7 F 87 12 96/53 93 L 04/30/20 07:30 12 94/60 94 L 04/30/20 07:00 72 10 L 96/68 95 04/30/20 06:30 91 9 L 88/60 94 L 04/30/20 06:00 82 8 L 108/64 95 04/30/20 05:30 75 10 L 94/78 94 L 04/30/20 05:00 80 10 L 95/68 95 04/30/20 04:30 90 9 L 97/62 90 L 04/30/20 04:00 97.7 F 80 13 99/64 94 L 04/30/20 03:30 79 10 L 98/58 95 04/30/20 03:00 80 9 L 91/61 94 L 04/30/20 02:30 76 10 L 88/60 96 04/30/20 02:00 68 12 100/59 94 L 04/30/20 01:30 88 10 L 93/61 92 L 04/30/20 01:00 72 11 L 96/54 94 L 04/30/20 00:30 80 11 L 101/59 95 04/30/20 00:06 78 9 L 95 04/30/20 00:00 97.8 F 82 10 L 98/61 95 04/29/20 23:30 86 9 L 102/58 94 L 04/29/20 23:00 81 12 102/68 96 04/29/20 22:30 75 9 L 96/62 91 L 04/29/20 22:00 86 10 L 88/55 95 04/29/20 21:30 79 7 L 97/62 94 L 04/29/20 21:00 83 10 L 98/67 93 L 04/29/20 20:30 84 12 91/68 94 L 04/29/20 20:00 84 10 L 88/62 95 04/29/20 19:30 84 8 L 93/57 95 04/29/20 19:00 80 14 107/74 94 L 04/29/20 18:30 88 16 99/71 93 L 04/29/20 18:00 72 20 103/62 94 L 08/04/20 17:30 90 20 101/87 93 L 04/29/20 17:00 84 12 97/68 95 04/29/20 16:30 85 12 92/58 94 L 04/29/20 16:00 97.6 F 80 12 97/62 95 Intake and Output 04/30/20 04/30/20 04/30/20 06:59 14:59 22:59 Intake Total 990.815 630 Output Total 390 300 Balance 600.815 330 Intake: IV 160 30 Sodium Chloride 0.9% 1, 160 30 000 ml @ 75 mls/hr IV Intake, IV Titration 830.815 600 Amount Dextrose 5% in Water 1, 800 500 000 ml @ 100 mls/hr IV . [id number] NENA with Sodium Bicarb (1 Meq/ml) 150 ml Rx#:[id number] Norepinephrine 8 mg In 30.815 Sodium Chloride 0.9% 250 ml @ 0.05 MCG/KG/MIN 8. 514 mls/hr IV .Q24H NENA Rx#:[id number] Piperacillin-Tazobactam 3 100 .375 gm In Sodium Chloride 0.9% 100 ml @ 25 mls/hr IVPB Q12HR NENA Rx #:[id number] Output: Urine 390 300 Other: Voiding Method Indwelling Catheter Indwelling Catheter Weight 97.1 kg GENERAL DESCRIPTION: An elderly female lying in bed, no distress. No tachypnea or accessory muscle of respiration use. HEENT: Shows Pallor , no scleral icterus. Oral mucous membrane is dry. No pharyngeal erythema or thrush NECK: Trachea central, no thyromegaly. LUNGS: Unlabored breathing. Clear to auscultation anteriorly. No wheeze or crackle. HEART: S1, S2, regular rate and rhythm. No loud murmur ABDOMEN: Soft, mild left lower quadrant tenderness , no guarding or rigidity, no organomegaly EXTREMITIES: No edema of feet. SKIN: No rash, no masses palpable. NEUROLOGICAL: The patient is awake, alert, oriented x3, mood and affect normal. Results CBC & Chem 7: 04/30/20 03:52 04/30/20 03:52 Labs: Abnormal Lab Results - Last 24 Hours (Table) 04/29/20 04/29/20 04/30/20 Range/Units 17:04 20:22 03:52 RBC (3.80-5.40) m/uL Hgb (11.4-16.0) gm/dL MCHC (31.0-37.0) g/dL RDW (11.5-15.5) % Plt Count (150-450) k/uL Lymphocytes # (1.0-4.8) k/uL PT (9.0-12.0) sec INR (<1.2) Sodium (137-145) mmol/L Chloride (98-107) mmol/L Carbon Dioxide (22-30) mmol/L BUN (7-17) mg/dL Creatinine (0.52-1.04) mg/dL Glucose (74-99) mg/dL POC Glucose (mg/dL) 264 H 229 H (75-99) mg/dL Hemoglobin A1c 7.1 H (4.0-6.0) % Calcium (8.4-10.2) mg/dL 04/30/20 04/30/20 04/30/20 Range/Units 03:52 03:52 03:52 RBC 3.57 L (3.80-5.40) m/uL Hgb 10.7 L (11.4-16.0) gm/dL MCHC 30.7 L (31.0-37.0) g/dL RDW 16.1 H (11.5-15.5) % Plt Count 122 L (150-450) k/uL Lymphocytes # 0.8 L (1.0-4.8) k/uL PT 21.4 H (9.0-12.0) sec INR 2.2 H (<1.2) Sodium 135 L (137-145) mmol/L Chloride 108 H (98-107) mmol/L Carbon Dioxide 18 L (22-30) mmol/L BUN 71 H (7-17) mg/dL Creatinine 4.33 H (0.52-1.04) mg/dL Glucose 182 H (74-99) mg/dL POC Glucose (mg/dL) (75-99) mg/dL Hemoglobin A1c (4.0-6.0) % Calcium 7.1 L (8.4-10.2) mg/dL 04/30/20 Range/Units 11:41 RBC (3.80-5.40) m/uL Hgb (11.4-16.0) gm/dL MCHC (31.0-37.0) g/dL RDW (11.5-15.5) % Plt Count (150-450) k/uL Lymphocytes # (1.0-4.8) k/uL PT (9.0-12.0) sec INR (<1.2) Sodium (137-145) mmol/L Chloride (98-107) mmol/L Carbon Dioxide (22-30) mmol/L BUN (7-17) mg/dL Creatinine (0.52-1.04) mg/dL Glucose (74-99) mg/dL POC Glucose (mg/dL) 190 H (75-99) mg/dL Hemoglobin A1c (4.0-6.0) % Calcium (8.4-10.2) mg/dL Microbiology - Last 24 Hours (Table) 04/28/20 16:56 Urine Culture - Final Urine,Catheterized 04/28/20 14:34 Blood Culture - Preliminary Blood No Growth after 24 hours Assessment and Plan Assessment: 1- patient is a 74-year-old female who has been admitted to the hospital for cystoscopy this patient was noticed to be weak and lethargic and hypotensive after the cystoscopy, patient did have a history of recurrent u rinary tract infection and has been exposed to multiple antibiotics on this admission the patient is afebrile her white count is normal however did have significantly positive UA and concern for possible colovesical fistula unfortunately CT of abdominal pelvis was inconclusive, with a question of po ssible interstitial cystitis likely noninfectious, patient currently with the no fever or elevated white count and cultures negative and the patient developing significant diarrhea with recent antibiotic exposure 2- diarrhea possible antibiotic associated stool for C. diff is negative and seems to have some clinical improvement after discontinuation of antibiotic (1) Colitis Current Visit: No Status: Acute Code(s): K52.9 - NONINFECTIVE GASTROENTERITIS AND COLITIS, UNSPECIFIED SNOMED Code(s): 04855623 (2) Cystitis Current Visit: No Status: Acute Code(s): N30.90 - CYSTITIS, UNSPECIFIED WITHOUT HEMATURIA SNOMED Code(s): 18514143 Plan: 1- we will add pyridium for her urinary symptoms of burning 2- continue with the antibiotic and encouraged to increase her probiotic intake for her diarrhea 3- hold on for systemic antibiotic therapy at this point We will follow on clinical condition and cultures to further adjust medication if needed Thank you for this consultation will follow this patient with you Daughter was at bedside questions were answered in Layman terms and plan was explained to the patient daughter, Time with Patient: Greater than 30
[2020-04-30] MEDS: PHENAZOPYRIDINE 200 MG TAB PO SCH (22:19)
[2020-05-01 05:39] LABS: Anisocytosis Slight; Basophils % (A) 0 %; Eosinophils % (A) 0 %; HCT 34.9 % (34.0-46.0); HGB 11.2 gm/dL (11.4-16.0); Lymphocytes # (A) 0.6 k/uL (1.0-4.8); Lymphocytes % (A) 14 %; MCH 30.8 pg (25.0-35.0); MCV 96.2 fL (80.0-100.0); Mean Platelet Volume 10.3; Monocytes # (A) 0.2 k/uL (0-1.0); Monocytes % (A) 4 %; Neutrophils # (A) 3.4 k/uL (1.3-7.7); Neutrophils % (A) 81 %; Platelet Count 115 k/uL (150-450); RBC 3.63 m/uL (3.80-5.40); RDW 16.2 % (11.5-15.5); WBC 4.2 k/uL (3.8-10.6)
[2020-05-01 05:51] LABS: Prothrombin Time 19.4 sec (9.0-12.0)
[2020-05-01 05:52] LABS: Calcium 7.2 mg/dL (8.4-10.2); Potassium 3.4 mmol/L (3.5-5.1)
[2020-05-01 06:33] LABS: Glucose,Whole Blood 224 mg/dL (75-99)
[2020-05-01] MEDS: INSULIN ASPART (NovoLOG) 100 UNIT/ML VIAL SQ SCH ×4 (06:36→21:51)
[2020-05-01] MEDS: PANTOPRAZOLE 40 MG TABLET PO SCH ×2 (06:36→18:13)
[2020-05-01] MEDS: LEVOTHYROXINE 88 MCG TAB PO SCH (06:36)
[2020-05-01] MEDS: POTASSIUM CHLORIDE ER 20 MEQ TAB.ER PO SCH ×2 (06:36→08:14)
--- NOTE | 2020-05-01 06:42 | P.PN ---
Progress Note - Text Progress Note Date: 04/30/20 The patient reports mild bladder discomfort. Her Peoples catheter is draining clear yellow urine. Her serum creatinine level has decreased somewhat to 4.33 today, and I anticipate further improvement. Biopsy results are pending.
[2020-05-01] MEDS: DEXTROSE 5% IN WATER 1,000 ML with SODIUM BICARB (1 MEQ/ML) 150 ML IV SCH (08:10)
[2020-05-01] MEDS: HYDROCORTISONE SUCCINATE 100 MG/2 ML VIAL IV SCH ×2 (08:13→21:51)
[2020-05-01] MEDS: PREGABALIN 100 MG CAP PO SCH ×2 (08:13→21:51)
[2020-05-01] MEDS: PHENAZOPYRIDINE 200 MG TAB PO SCH ×2 (08:13→18:13)
[2020-05-01] MEDS: BALSALAZIDE DISODIUM 750 MG CAPSULE PO SCH ×2 (08:13→18:13)
[2020-05-01] MEDS: allopurinoL 100 MG TAB PO SCH ×3 (08:13→21:51)
[2020-05-01] MEDS: MULTIVITAMINS, THERA 1 EACH TAB PO SCH (08:14)
[2020-05-01] MEDS: ONDANSETRON 4 MG/2 ML VIAL IVP PRN (09:30)
[2020-05-01] MEDS: SODIUM CHLORIDE 0.9% 1,000 ML IV SCH (09:31)
[2020-05-01 12:19] LABS: Glucose,Whole Blood 154 mg/dL (75-99)
--- NOTE | 2020-05-01 12:26 | PN ---
PROGRESS NOTE Patient is seen for followup for acute kidney injury on top of chronic kidney disease. She is maintained on IV fluids. Renal function is better. Creatinine is down to 3.4 from 4.3 yesterday. Patient's ACTH stimulation test was positive for adrenal insufficiency. She has been started on hydrocortisone and currently she is off Levophed. Overall, patient states she is feeling slightly better. She continues to have discomfort from the catheter and in the rectal area. PHYSICAL EXAMINATION: Blood pressure was 121/83, heart rate 87 per minute, she is afebrile. Examination of the heart S1, S2. Examination of the lungs, bilateral breath sounds are heard. Abdomen is soft, nontender. Examination of the lower extremities shows trace edema bilaterally. MANAGER [employer]ODUCTION exam is grossly intact. LABS: Show sodium 135, potassium 3.4, chloride 103, BUN 63, creatinine 3.43, hemoglobin 11.2 g/dL. ASSESSMENT: 1. Acute kidney injury associated with hypotension, hypoperfusion, currently improving. 2. Non-gap metabolic acidosis, now resolved, status post IV bicarb. 3. Hypokalemia, we will replace. 4. Hypotension from adrenal insufficiency maintained on hydrocortisone. Patient will need to follow up with endocrinology, post discharge. 5. Pyuria, status post bladder biopsy. Results are pending. Patient is being followed by Urology. 6. Rectal discomfort, status post CT of the abdomen with no significant abnormal findings. PLAN: Continue with normal saline. Replace potassium. Continue hydrocortisone for now. MMODL / IJN: [id number] /
--- NOTE | 2020-05-01 12:26 | P.PN ---
Subjective Progress Note Date: 05/01/20 A 74-year-old female patient who got transferred to the emergency department from the outpatient surgical center as the patient was found to be quite weak and hypotensive. The patient reported that she hasn't been feeling good and her condition was declining since which is approximately 3 days ago. The patient was evaluated in emerged department on 04/24/2020 and the patient was diagnosed having a UTI based on the abnormal UA. Nevertheless, during cultures came back negative. At that time, the patient was discharged home on Levaquin 500 milligrams for a total of 5 days. Note that the patient was placed on antibiotics which cause extreme diarrhea and worsening of her underlying colit is. Today, the patient was supposed to have a cystoscopy for underlying bladder pain and dysfunction. She was found to be quite 6 and she was sent over.. No fever. No chills no focal neurological deficit. The blood work showed an acute on top of chronic kidney failure. The patient's baseline creatinine was around 1.8 and current creatinine is up to 4.9. Urine is up to 76. The patient is a component of non-anion gap metabolic acidosis with a gap of 11 and a serum bicarb of 13. Sodium is at 133. The white cell count is at 4.3. Platelet counts have dropped down to 50. The patient is already being given a total of 370 fluids and the patient is starting on norepinephrine for blood pressure support. The INR is subtherapeutic as the patient has chronic atrial fibrillation. Today's INR is at 1.3. The patient remains in atrial fibrillation. The rate of 87. 04/29/2020 I'm seeing the patient for a follow-up and she was seen in consultation yesterday. The patient is doing well. She is on normal saline at the rate of 75 mL an hour. She received a total of 4 L of IV fluid bolus and she is on norepinephrine infusion at 0.05 g per KG per minute. She is on room air oxygen with a pulse of 75%. Chest x-ray remains clear. Ultrasound of the kidneys have shown no evidence of any hydronephrosis. The kidneys of normal size and there is a small cyst in the lower portion of the right kidney. The echocardiogram showed atrial fibrillation. The patient has an ejection fraction of 50-55%. PA pressures around 45 mmHg and there is no evidence of any pulmonary hypertension. Blood work from today shows no significant leukocytosis. White cell count is at 5.8. INR is 1.8 with a PT of 17.3. As for the renal function, the patient continues to have impaired renal function with a creatinine of 4.8 with a mean of 72. Serum bicarb is a 13 and the sodium is at 134. Potassium is at 5.0. Urine cultures are still negative and the patient is covered with IV Zosyn as an empiric antibiotic coverage. Coumadin was restarted. Consultation was placed for urology. 04/30/2020, the patient is off pressors since 4:00 this morning. The patient is having some vague abdominal discomfort and it seems that she is constipated and she is to have a bowel movement. She is off levo fed. She is on a bicarb infusion at the rate of 100 mL an hour. She remains on empiric antibiotic cove rage with IV Zosyn. In terms of her blood work, the serum bicarb is improved and it's up to 18. The creatinine is up to 4.3 with a BUN of 71. Renal function obviously still impaired. The patient was again seen by urology. Apparently the patient has had multiple urine cultures all of them being negative. She has changes consistent with cystitis and biopsies were taken. She remains in atrial fibrillation. The patient has a therapeutic PT/INR with an INR of 2.2 and the heart rate is well-controlled for now. Altered mentation. No nausea. No vomiting. No abdominal pain. Note that she has history of inflammatory bowel disease. On 05/01/2020, the patient is doing well. Hemodynamically stable. Serum cortisol was low. The patient was given a cosyntropin stimulation test and the test was positive for adrenal insufficiency. Based on that, the patient was placed on hydrocortisone 100 mg IV every 12 hours. Nevertheless, she is currently off pressors. Her PT/INR was therapeutic while eating on Coumadin. No abdominal pain. She has some pelvic discomfort mainly in the suprapubic area. Peoples catheter is in place. No hematuria. Antibodies are currently discontinued. CAT scan of the abdomen and pelvis was noted from yesterday. They have function continues to improve. The VNA is down in the creatinine is down to 3.43. She is on IV fluids with D5 bicarb infusion at the rate of 100 mL an hour. Her serum bicarbonate has normalized and the patient be switched to normal saline solution at a rate of 50 mL an hour. No altered mentation pH is utilizing her CPAP overnight. No cough or sputum production. No chest pain. Objective - Vital Signs Vital signs: Vital Signs Temp 98.3 F 05/01/20 08:00 Pulse 87 05/01/20 11:00 Resp 9 L 05/01/20 11:00 BP 121/83 05/01/20 11:00 Pulse Ox 95 05/01/20 11:00 Intake & Output 04/30/20 05/01/20 05/01/20 18:59 06:59 18:59 Intake Total 1330 1100 300 Output Total 720 1100 300 Balance 610 0 0 Weight 98.2 kg Intake: IV 30 1100 300 Dextrose 5% in Water 1, 1100 200 000 ml @ 100 mls/hr IV . [id number] NENA with Sodium Bicarb (1 Meq/ml) 150 ml Rx#:[id number] Sodium Chloride 0.9% 1, 100 000 ml @ 50 mls/hr IV . Q20H NENA Rx#:[id number] Sodium Chloride 0.9% 1, 30 000 ml @ 75 mls/hr IV Intake, IV Titration 1300 Amount Dextrose 5% in Water 1, 1200 000 ml @ 100 mls/hr IV . [id number] NENA with Sodium Bicarb (1 Meq/ml) 150 ml Rx#:[id number] Piperacillin-Tazobactam 3 100 .375 gm In Sodium Chloride 0.9% 100 ml @ 25 mls/hr IVPB Q12HR NENA Rx #:[id number] Output: Urine 720 1100 300 Other: Voiding Method Indwelling Catheter Indwelling Catheter Indwelling Catheter # Bowel Movements 1 - Exam General Appearance no diaphoresis, dyspnea, pallor, or respiratory distress and speech not interrupted by breaths, not cachectic, well nourished, appears well, and obesity. HEENT no pursed lip breathing, jugular venous distention, mucous membrane cyanosis, or perioral cyanosis and mallampati classification: class 1 and Mallampati Classification: Class 4. Chest no retractions, rhonchi, hyperinflation, barrel chest, sternocleidomastoid muscle contractions, supraclavicular retractions, intercostal retractions, prolonged expiratory wheezing, or decreased air movement and decreased air movement. Heart no right ventricular heave, distant heart sounds, or s3 gallop and irregular heart rhythm: totally irregular; irregular, secondary to AFIB. GI bowel sounds: hyperactive (borborygmi) and diminished or absent. Extremities no cyanosis, clubbing, or edema. Neurologic improved her mentation compared to yesterday and the patient is awake and alert and following commands and answering questions appropriately.. Skin: General Appearance normal and (normal) normal except as noted. - Labs CBC & Chem 7: 05/01/20 05:26 05/01/20 05:26 Labs: Abnormal Lab Results - Last 24 Hours (Table) 04/30/20 04/30/20 04/30/20 Range/Units 03:52 16:40 21:19 RBC (3.80-5.40) m/uL Hgb (11.4-16.0) gm/dL RDW (11.5-15.5) % Plt Count (150-450) k/uL Lymphocytes # (1.0-4.8) k/uL PT (9.0-12.0) sec INR (<1.2) Sodium (137-145) mmol/L Potassium (3.5-5.1) mmol/L BUN (7-17) mg/dL Creatinine (0.52-1.04) mg/dL Glucose (74-99) mg/dL POC Glucose (mg/dL) 148 H 216 H (75-99) mg/dL Hemoglobin A1c 7.1 H (4.0-6.0) % Calcium (8.4-10.2) mg/dL 05/01/20 05/01/20 05/01/20 Range/Units 05:26 05:26 05:26 RBC 3.63 L (3.80-5.40) m/uL Hgb 11.2 L (11.4-16.0) gm/dL RDW 16.2 H (11.5-15.5) % Plt Count 115 L (150-450) k/uL Lymphocytes # 0.6 L (1.0-4.8) k/uL PT 19.4 H (9.0-12.0) sec INR 2.0 H (<1.2) Sodium 135 L (137-145) mmol/L Potassium 3.4 L (3.5-5.1) mmol/L BUN 63 H (7-17) mg/dL Creatinine 3.43 H (0.52-1.04) mg/dL Glucose 207 H (74-99) mg/dL POC Glucose (mg/dL) (75-99) mg/dL Hemoglobin A1c (4.0-6.0) % Calcium 7.2 L (8.4-10.2) mg/dL 05/01/20 05/01/20 Range/Units : 12:18 RBC (3.80-5.40) m/uL Hgb (11.4-16.0) gm/dL RDW (11.5-15.5) % Plt Count (150-450) k/uL Lymphocytes # (1.0-4.8) k/uL PT (9.0-12.0) sec INR (<1.2) Sodium (137-145) mmol/L Potassium (3.5-5.1) mmol/L BUN (7-17) mg/dL Creatinine (0.52-1.04) mg/dL Glucose (74-99) mg/dL POC Glucose (mg/dL) 224 H 154 H (75-99) mg/dL Hemoglobin A1c (4.0-6.0) % Calcium (8.4-10.2) mg/dL Microbiology - Last 24 Hours (Table) 04/28/20 14:34 Blood Culture - Preliminary Blood No Growth after 48 hours Assessment and Plan Plan: 1 acute hypotension, not responsive to fluids and the patient will be started on pressors. No significant leukocytosis and no fever. Consider underlying infection/sepsis and the patient was diagnosed having a UTI on 04/24/2020. Cultures are all negative. Consider the possibility of an underlying adrenal insufficiency. The cosyntropin stimulation test was positive and the patient is currently on hydrocortisone IV. Hemodynamically stable currently on no pressors. Cultures of been all negative and the patient was taken off antibiotics. 2 acute kidney injury on top of chronic stage III kidney disease. The patient is showing improvement in the renal function and improvement in urine output. 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 The patient apparently had negative cultures. The patient intrao peratively was found to have diffuse erythema suggestive of cystitis despite the negative cultures. Biopsies were taken. Plan Stop the bicarb infusion as the patient's serum bicarbs up to 27 and put the patient on normal saline today to 50 mL an hour Monitor electrolytes Agree on IV hydrocortisone for the next 24-48 hours. Hemodynamically stable. Monitor cultures and antibiotics will be discontinued upon the request of urology and noted infection results on the case. echocardiogram was noted Monitor PT/INR and adjust the Coumadin dose accordingly CAT scan of the abdomen and pelvis with oral contrast and this was a suboptimal study as the contrast did not reach the terminal ileum. No clear evidence of any colonic bladder fistula. Peoples catheter was in place and decompress the bladder. There was fat stranding around the bladder indicating cystitis. The patient has a normal bowel pattern. There is mild to moderate proximal colonic fecal stasis. There was also distal colonic diverticulosis. No evidence of any diverticulitis. We we will transfer this patient out of the intensive care unit today.
--- NOTE | 2020-05-01 16:59 | PN ---
PROGRESS NOTE DATE OF SERVICE: 05/01/2020 This 74-year-old woman admitted with severe hypotension postoperatively is being closely monitored at this time. The patient was on pressor support and IV fluids. Patient is being closely monitored. The patient also has significant renal failure. Creatinine is 3.4. The patient also has hyponatremia and hypokalemia. Multiple consultants are following the patient closely. Most recent cultures are negative at this time. Past medical history reviewed. The 8 am cortisol was found to be 9. REVIEW OF SYSTEMS: CARDIOVASCULAR SYSTEM: No angina, palpitations. RESPIRATORY SYSTEM: As mentioned earlier. GI: As mentioned earlier. : No dysuria or retention. NERVOUS SYSTEM: No numbness, weakness. CURRENT MEDICATIONS: Reviewed. They include: 1. Tylenol p.r.n. 2. Zyloprim 100 mg t.i.d. 3. Balsalazide 2.2 t.i.d. 4. Lomotil. 5. Flonase. 6. Solu-Cortef 100 mg b.i.d. 7. NovoLog. 8. Synthroid. 9. Imodium. 10.Multivitamins. 11.Narcan. 12.Zofran. 13.Pyridium. 14.Lyrica. 15.Coumadin. PHYSICAL EXAMINATION: Patient is alert, oriented x2. Pulse is 128, blood pressure 108/73, respiration 12, temperature 98.2, pulse ox 94% on room air. HEENT: Conjunctivae normal. NECK: No jugular venous distention. CARDIOVASCULAR SYSTEM: S1, S2 muffled. RESPIRATORY SYSTEM: Breath sounds diminished at the bases. No rhonchi. No crackles. ABDOMEN: Soft, non-tender. No mass palpable. LEGS: No edema. No swelling. NERVOUS SYSTEM: Diffusely weak. LABS: WBC 4.2, hemoglobin 11.2. INR 2. Sodium 135, potassium 3.4, creatinine is 3.43. ASSESSMENT: 1. Severe acute hypotension, possibly secondary to acute tubular necrosis and acute renal failure and prerenal factors. 2. Severe hypotension secondary to dehydration, hypovolemic, with possible sepsis. 3. Possible acute adrenal insufficiency. 4. Hyponatremia. 5. Possible urinary tract infection, present on admission. 6. History of recent bladder surgery. 7. Metabolic acidosis. 8. Thrombocytopenia. 9. History of recent urinary tract infection. 10.History of asthma. 11.Fibromyalgia. 12.Hypertension. 13.History of degenerative joint disease. 14.History of rheumatoid arthritis. 15.History of sleep apnea. 16.History of hypothyroidism. 17.History of tumor in the pituitary gland. 18.History of post-polio syndrome. 19.History of aortic regurgitation. 20.History of cholecystectomy. 21.History of motion sickness. 22.History of depression. 23.History of hypoalbuminemia. RECOMMENDATIONS AND DISCUSSION: I recommend to continue current medications, continue with the monitoring, symptomatic treatment. Stress-dose steroids have been given. The blood pressure has improved significantly. Monitor potassium closely. The Peoples catheter shows some hematuria. The renal function is slightly improving at this time. Multiple consultants are following the patient closely. Guarded prognosis because of multiple complex medical conditions. Further recommendations to follow. LINDA / ALEJANDRA: [id number] / MTDD
--- NOTE | 2020-05-01 17:14 | PN ---
PROGRESS NOTE DATE OF SERVICE: 04/30/2020 This is a 74-year-old woman who was admitted with multiple medical problems with severe hypertension, closely monitored. Patient is on IV fluids and pressor support. PAST MEDICAL HISTORY: Reviewed. REVIEW OF SYSTEMS: CARDIOVASCULAR SYSTEM: No angina. RESPIRATION: As mentioned earlier. GI: As mentioned earlier. : No dysuria. NERVOUS SYSTEM: No numbness or weakness. CURRENT MEDICATIONS: Reviewed and include: Tylenol, Zyloprim, Lomotil, Flonase, Solu-Cortef, Synthroid, Imodium, multivitamins, Narcan. Protonix, Lyrica. PHYSICAL EXAM: Patient is alert and oriented x3, pulse 87, blood pressure 94/50, respiration 12, temperature 97.7, pulse ox 94% on room air. HEENT: Conjunctivae normal. NECK: No jugular venous distension. CARDIOVASCULAR SYSTEM: S1, S2, muffled. RESPIRATION: Breath sounds diminished at the bases. A few scattered rhonchi, no crackles. ABDOMEN: Soft, nontender. LEGS; No edema, no swelling. LABS: Reviewed. Hemoglobin 10.7, sodium 130, potassium 4. Labs are reviewed. ASSESSMENT: 1. Severe acute hypotension possibly secondary to acute tubular necrosis and renal failure. 2. Severe hypotension secondary to dehydration: Possible sepsis. 3. Hyponatremia. 4. Possible urinary tract infection. 5. Metabolic acidosis. 6. Thrombocytopenia. 7. History of recent urinary tract infection. 8. History of asthma. 9. Fibromyalgia. 10.Hypertension. 11.History of DJD. 12.History of rheumatoid arthritis. 13.History of sleep apnea next. 14.History of hypothyroidism. 15.History of tumor in the pituitary gland. 16.History of post-polio syndrome. 17.History of aortic regurgitation. 18.History of cholecystectomy. 19.History of motion sickness. 20.History of depression. 21.Hypoalbuminemia. RECOMMENDATION: Recommend to continue current management and monitor blood pressure closely. Monitor electrolytes closely, antibiotics, follow the cultures closely. Multiple medications. Multiple consultants or following the patient. Patient monitored in ICU. Prognosis guarded. Further recommendations to follow. MMODL / IJN: [id number] /
[2020-05-01] MEDS ORDERED: WARFARIN 0.5 MG TAB PO ONE (18:00)
[2020-05-01 18:06] LABS: Glucose,Whole Blood 191 mg/dL (75-99)
[2020-05-01 21:31] LABS: Glucose,Whole Blood 202 mg/dL (75-99)
--- NOTE | 2020-05-01 22:26 | PN ---
PROGRESS NOTE DATE OF SERVICE: 05/01/2020. REASON FOR FOLLOW UP: Cystitis and colitis. INTERVAL HISTORY: Patient is currently afebrile. The patient is breathing comfortably. The patient is still complaining of pain in the low back area, though her diarrhea has slowed down. The patient denies having any chest pain. No shortness of breath. No cough. PHYSICAL EXAMINATION: Blood pressure 130/75 with a pulse of 83, temperature 98.6. She is 93% on room air. General description: The patient is an elderly female lying in bed in no distress. Respiratory system: Unlabored breathing, clear to auscultation anteriorly. Heart S1, S2. Regular rate and rhythm. ABDOMEN: Soft, no tenderness. LABS: Hemoglobin is 11.8, white count 4.2, BUN of 63, creatinine 3.43. DIAGNOSTIC IMPRESSION AND PLAN: 1. Patient with cystitis, concern for possible interstitial cystitis, concern for urinary tract infection though the urine cultures have been negative, currently managed off antibiotic therapy. 2. Diarrhea possible antibiotic associated, seemed to be slowing down after discontinuation off antibiotics. Stool for C dif negative. Continue with symptomatic treatment. MMODL / IJN: [id number] /
[2020-05-02] MEDS: PHENAZOPYRIDINE 200 MG TAB PO SCH ×4 (00:31→21:26)
[2020-05-02] MEDS: BALSALAZIDE DISODIUM 750 MG CAPSULE PO SCH ×4 (00:31→21:25)
[2020-05-02] MEDS: LEVOTHYROXINE 88 MCG TAB PO SCH (05:48)
[2020-05-02] MEDS: SODIUM CHLORIDE 0.9% 1,000 ML IV SCH (05:48)
[2020-05-02 06:57] LABS: Glucose,Whole Blood 237 mg/dL (75-99)
[2020-05-02] MEDS: PREGABALIN 100 MG CAP PO SCH ×2 (09:25→21:22)
[2020-05-02] MEDS: MULTIVITAMINS, THERA 1 EACH TAB PO SCH (09:26)
[2020-05-02] MEDS: PANTOPRAZOLE 40 MG TABLET PO SCH ×2 (09:26→17:13)
[2020-05-02] MEDS: allopurinoL 100 MG TAB PO SCH ×3 (09:26→21:22)
[2020-05-02] MEDS: HYDROCORTISONE SUCCINATE 100 MG/2 ML VIAL IV SCH ×2 (09:26→21:22)
[2020-05-02] MEDS: INSULIN ASPART (NovoLOG) 100 UNIT/ML VIAL SQ SCH ×4 (09:26→21:23)
[2020-05-02 09:40] LABS: Calcium 7.5 mg/dL (8.4-10.2); Potassium 3.2 mmol/L (3.5-5.1)
[2020-05-02] MEDS: ONDANSETRON 4 MG/2 ML VIAL IVP PRN (10:36)
[2020-05-02 11:50] LABS: Glucose,Whole Blood 229 mg/dL (75-99)
--- NOTE | 2020-05-02 12:30 | PN ---
PROGRESS NOTE Patient is seen for followup for acute kidney injury on top of chronic kidney disease. She was admitted to the hospital with hypotension while having a bladder biopsy done as outpatient. Patient has chronic pyuria, urine cultures have been negative. Biopsy is currently pending. Patient remained hypotensive and she was diagnosed to be adrenally insufficient and has been started on hydrocortisone. Serum creatinine has improved with creatinine down to 2.7 from 4.98. Patient does have CKD with previous creatinine about 1.8-1.7 mg/dL all the way back to 2014. PHYSICAL EXAMINATION: Today, she is comfortable, awake, not in any acute distress. Blood pressure is 116/74, heart rate 86 per minute, she is afebrile. Examination of the heart S1, S2. Examination of the lungs, bilateral breath sounds are heard. Abdomen is soft, nontender. Examination of the lower extremities shows trace edema bilaterally. [employer] exam grossly intact. LABS: Show sodium 138, potassium 3.2, chloride 106, BUN 52, creatinine 2.7. ASSESSMENT: 1. Acute kidney injury associated with hypotension, currently improving. 2. Chronic kidney disease NKF stage 3B, mostly associated with nephrosclerosis. The patient will need followup as outpatient. 3. Hypotension from adrenal insufficiency, started on hydrocortisone, currently improved. 4. Chronic pyuria status post bladder biopsy, results are pending. 5. Non-gap metabolic acidosis now resolved. PLAN: Encourage increased oral intakes. Switch hydrocortisone to p.o. steroids. The patient will need follow up with Endocrinology as outpatient for adrenal insufficiency. MMODL / IJN: [id number] /
--- NOTE | 2020-05-02 13:18 | P.PN ---
Subjective Progress Note Date: 05/02/20 A 74-year-old female patient who got transferred to the emergency department from the outpatient surgical center as the patient was found to be quite weak and hypotensive. The patient reported that she hasn't been feeling good and her condition was declining since which is approximately 3 days ago. The patient was evaluated in emerged department on 04/24/2020 and the patient was diagnosed having a UTI based on the abnormal UA. Nevertheless, during cultures came back negative. At that time, the patient was discharged home on Levaquin 500 milligrams for a total of 5 days. Note that the patient was placed on antibiotics which cause extreme diarrhea and worsening of her underlying colit is. Today, the patient was supposed to have a cystoscopy for underlying bladder pain and dysfunction. She was found to be quite 6 and she was sent over.. No fever. No chills no focal neurological deficit. The blood work showed an acute on top of chronic kidney failure. The patient's baseline creatinine was around 1.8 and current creatinine is up to 4.9. Urine is up to 76. The patient is a component of non-anion gap metabolic acidosis with a gap of 11 and a serum bicarb of 13. Sodium is at 133. The white cell count is at 4.3. Platelet counts have dropped down to 50. The patient is already being given a total of 370 fluids and the patient is starting on norepinephrine for blood pressure support. The INR is subtherapeutic as the patient has chronic atrial fibrillation. Today's INR is at 1.3. The patient remains in atrial fibrillation. The rate of 87. 04/29/2020 I'm seeing the patient for a follow-up and she was seen in consultation yesterday. The patient is doing well. She is on normal saline at the rate of 75 mL an hour. She received a total of 4 L of IV fluid bolus and she is on norepinephrine infusion at 0.05 g per KG per minute. She is on room air oxygen with a pulse of 75%. Chest x-ray remains clear. Ultrasound of the kidneys have shown no evidence of any hydronephrosis. The kidneys of normal size and there is a small cyst in the lower portion of the right kidney. The echocardiogram showed atrial fibrillation. The patient has an ejection fraction of 50-55%. PA pressures around 45 mmHg and there is no evidence of any pulmonary hypertension. Blood work from today shows no significant leukocytosis. White cell count is at 5.8. INR is 1.8 with a PT of 17.3. As for the renal function, the patient continues to have impaired renal function with a creatinine of 4.8 with a mean of 72. Serum bicarb is a 13 and the sodium is at 134. Potassium is at 5.0. Urine cultures are still negative and the patient is covered with IV Zosyn as an empiric antibiotic coverage. Coumadin was restarted. Consultation was placed for urology. 04/30/2020, the patient is off pressors since 4:00 this morning. The patient is having some vague abdominal discomfort and it seems that she is constipated and she is to have a bowel movement. She is off levo fed. She is on a bicarb infusion at the rate of 100 mL an hour. She remains on empiric antibiotic cove rage with IV Zosyn. In terms of her blood work, the serum bicarb is improved and it's up to 18. The creatinine is up to 4.3 with a BUN of 71. Renal function obviously still impaired. The patient was again seen by urology. Apparently the patient has had multiple urine cultures all of them being negative. She has changes consistent with cystitis and biopsies were taken. She remains in atrial fibrillation. The patient has a therapeutic PT/INR with an INR of 2.2 and the heart rate is well-controlled for now. Altered mentation. No nausea. No vomiting. No abdominal pain. Note that she has history of inflammatory bowel disease. On 05/01/2020, the patient is doing well. Hemodynamically stable. Serum cortisol was low. The patient was given a cosyntropin stimulation test and the test was positive for adrenal insufficiency. Based on that, the patient was placed on hydrocortisone 100 mg IV every 12 hours. Nevertheless, she is currently off pressors. Her PT/INR was therapeutic while eating on Coumadin. No abdominal pain. She has some pelvic discomfort mainly in the suprapubic area. Peoples catheter is in place. No hematuria. Antibodies are currently discontinued. CAT scan of the abdomen and pelvis was noted from yesterday. They have function continues to improve. The VNA is down in the creatinine is down to 3.43. She is on IV fluids with D5 bicarb infusion at the rate of 100 mL an hour. Her serum bicarbonate has normalized and the patient be switched to normal saline solution at a rate of 50 mL an hour. No altered mentation pH is utilizing her CPAP overnight. No cough or sputum production. No chest pain. 05/02/2020, the patient continues to show improvement in the renal function and creatinine is down to 2.7. No significant abdominal pain. She is having bowel movements and no diarrhea. Some pelvic discomfort related to interstitial cystitis. Biopsies of the bladder has been done. Hemodynamically stable. No signs of any hypotension. No fever, no chills. Cultures of been negative and antibiotics and been discontinued. The patient has no new complaints otherwise for now. Objective - Vital Signs Vital signs: Vital Signs Temp 98.6 F 05/01/20 20:00 Pulse 86 05/01/20 21:00 Resp 15 05/02/20 00:00 BP 116/74 05/01/20 21:00 Pulse Ox 93 L 05/01/20 21:00 Intake & Output 05/01/20 05/02/20 05/02/20 18:59 06:59 18:59 Intake Total 700 150 Output Total 825 180 450 Balance -125 -30 -450 Weight 94.6 kg Intake: IV 700 150 Dextrose 5% in Water 1, 200 000 ml @ 100 mls/hr IV . [id number] NENA with Sodium Bicarb (1 Meq/ml) 150 ml Rx#:[id number] Sodium Chloride 0.9% 1, 500 150 000 ml @ 50 mls/hr IV . Q20H NENA Rx#:[id number] Output: Urine 825 180 450 Other: Voiding Method Indwelling Catheter Indwelling Catheter - Exam General Appearance no diaphoresis, dyspnea, pallor, or respiratory distress and speech not interrupted by breaths, not cachectic, well nourished, appears well, and obesity. HEENT no pursed lip breathing, jugular venous distention, mucous membrane cyanosis, or perioral cyanosis and mallampati classification: class 1 and Mallampati Classification: Class 4. Chest no retractions, rhonchi, hyperinflation, barrel chest, sternocleidomastoid muscle contractions, supraclavicular retractions, intercostal retractions, prolonged expiratory wheezing, or decreased air movement and decreased air movement. Heart no right ventricular heave, distant heart sounds, or s3 gallop and irregular heart rhythm: totally irregular; irregular, secondary to AFIB. GI bowel sounds: hyperactive (borborygmi) and diminished or absent. Extremities no cyanosis, clubbing, or edema. Neurologic improved her mentation compared to yesterday and the patient is awake and alert and following commands and answering questions appropriately.. Skin: General Appearance normal and (normal) normal except as noted. - Labs CBC & Chem 7: 05/01/20 05:26 05/02/20 09:04 Labs: Abnormal Lab Results - Last 24 Hours (Table) 05/01/20 05/01/20 05/02/20 Range/Units 18:04 21:29 06:55 Potassium (3.5-5.1) mmol/L BUN (7-17) mg/dL Creatinine (0.52-1.04) mg/dL Glucose (74-99) mg/dL POC Glucose (mg/dL) 191 H 202 H 237 H (75-99) mg/dL Calcium (8.4-10.2) mg/dL 05/02/20 05/02/20 Range/Units 09:04 11:49 Potassium 3.2 L (3.5-5.1) mmol/L BUN 52 H (7-17) mg/dL Creatinine 2.77 H (0.52-1.04) mg/dL Glucose 203 H (74-99) mg/dL POC Glucose (mg/dL) 229 H (75-99) mg/dL Calcium 7.5 L (8.4-10.2) mg/dL Microbiology - Last 24 Hours (Table) 04/28/20 14:34 Blood Culture - Preliminary Blood No Growth after 72 hours Assessment and Plan Plan: 1 acute hypotension, with possibly a component of adrenal insufficiency, recovered 2 acute kidney injury on top of chronic stage III kidney disease, improving 3 obstructive sleep apnea with an AHI of 15 and the patient is on a CPAP at a pressure of 10 cm of water on outpatient basis 4 mild intermittent bronchial asthma 5 chronic atrial fibrillation maintained on long-term medical condition with warfarin with a therapeutic PT/INR at 2.0 6 diabetes mellitus without any complications 7 history of hypertension 8 morbid obesity 9 inflammatory bowel disease, maintain on mesalamine an outpatient basis 10 hypothyroidism, maintained on Synthroid on outpatient basis 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 The patient apparently had negative cultures. The patient intraoperatively was found to have diffuse erythema suggestive of cystitis despite the negative cultures. Biopsies were taken. Plan We'll stress this patient to oral hydrocortisone. Continue Synthroid. Monitor BP. Long-term medical condition warfarin. CPAP therapy. The patient is out of the intensive care unit for now. We'll follow.
--- NOTE | 2020-05-02 16:29 | PN ---
PROGRESS NOTE DATE OF SERVICE: 05/02/2020 This is a 74-year-old woman who was admitted with multiple problems including severe hypotension, also had significant renal failure. The creatinine was found to be 2.77 at this time. The patient also complains of weakness. The patient has some spacial dizzy after walking sometimes. Potassium 3.2, is being corrected. Multiple consultants are following the patient closely. Urine cultures negative so far. PAST MEDICAL HISTORY: Reviewed. REVIEW OF SYSTEMS: CARDIOVASCULAR SYSTEM: No angina or palpitations. RESPIRATORY: As mentioned earlier. GI: No nausea. : No dysuria. NERVOUS SYSTEM: No numbness or weakness. CURRENT MEDICATIONS: Reviewed and include: 1. Tylenol p.r.n. 2. Zyloprim. 4. Lomotil. 5. Flonase. 6. Solu-Cortef. 7. NovoLog. 8. Synthroid. 9. Loperamide. 10.Imodium. 11.Multivitamins. 12.Narcan. 13.Protonix. 14.Pyridium. 15.Lyrica. 16.Coumadin. PHYSICAL EXAM: Patient is alert, oriented x3. Pulse is 86, blood pressure 116/74, respiration 18, temperature 98.6, pulse ox 98% on room air. HEENT: Conjunctivae normal NECK: No jugular venous distension. CARDIOVASCULAR SYSTEM: S1, S2, muffled. RESPIRATION: Breath sounds diminished at the bases, no rhonchi, no crackles. ABDOMEN: Soft, nontender. LEGS: No edema, no swelling. NERVOUS SYSTEM: No focal deficits. LABS: WBC 4.2, hemoglobin 11.2, INR is 2. Sodium is 130, potassium 3.2, creatinine is 2.77. ASSESSMENT: 1. Severe acute hypotension, possibly secondary to acute tubular necrosis and renal failure. 2. Severe hypotension secondary to dehydration, possible sepsis. Negative cultures so far. 3. Hyponatremia. 4. Possible UTI. 5. Metabolic acidosis. 6. Thrombocytopenia. 7. History of recent urinary tract infection. 8. History of asthma. 9. Fibromyalgia. 10.Hypertension. 11.History of degenerative joint disease. 12.History of rheumatoid arthritis. 13.History of sleep apnea. 14.Hypothyroidism. 15.History of tumor in the pituitary gland. 16.History of post-polio syndrome. 17.History of aortic regurgitation. 18.History of cholecystectomy. 19.History of motion sickness. 20.History of depression. 21.Hypoalbuminemia. RECOMMENDATION: Recommend to continue current medications. Continue to monitor. Symptomatic treatment. Otherwise at this time I recommend continue with IV antibiotics. Otherwise, continue with monitor creatinine closely. PT, OT evaluation, possible ECF rehab versus home with home care. Guarded prognosis because of multiple complex medical issues. Further recommendations to follow. LINDA / AMYN: [id number] / [id number]
[2020-05-02 17:00] LABS: Glucose,Whole Blood 240 mg/dL (75-99)
[2020-05-02] MEDS ORDERED: WARFARIN 0.5 MG TAB PO ONE (18:00)
[2020-05-02 20:36] LABS: Glucose,Whole Blood 189 mg/dL (75-99)
--- NOTE | 2020-05-03 00:47 | PN ---
PROGRESS NOTE DATE OF SERVICE: 05/02/2020 REASON FOR FOLLOWUP: Colitis and cystitis. INTERVAL HISTORY: Patient is currently afebrile. Patient is breathing comfortably. Did have an episode of nausea and vomiting this morning but none afternoon. No chest pain, shortness of breath or cough. Abdominal discomfort has improved and diarrhea has slowed down. PHYSICAL EXAMINATION: Blood pressure 120/65, pulse of 90, temperature 97. She is 92% on room air. General description is an elderly female lying in bed in no distress. Respiratory system: Unlabored breathing, clear to auscultation anteriorly. Heart S1, S2. Regular rate and rhythm. Abdomen soft, no tenderness. LABS: BUN of 52, creatinine 2.77. Blood and urine cultures have been negative. DIAGNOSTIC IMPRESSION AND PLAN: 1. Patient with cystitis with gallstone, initial cause for possible colovesical fistula. CT was inconclusive ( ) for cystogram. The urine culture has been negative. Continue with Pyridium for symptomatic relief. 2. Patient with diarrhea. Stool for C difficile was negative. Continue with symptomatic treatment and monitor clinical course closely. MMODL / IJN: [id number] /
[2020-05-03] MEDS: PANTOPRAZOLE 40 MG TABLET PO SCH ×2 (06:30→17:22)
[2020-05-03] MEDS: LEVOTHYROXINE 88 MCG TAB PO SCH (06:30)
[2020-05-03] MEDS: SODIUM CHLORIDE 0.9% 1,000 ML IV SCH (06:31)
[2020-05-03 06:57] LABS: Glucose,Whole Blood 232 mg/dL (75-99)
[2020-05-03] MEDS: INSULIN ASPART (NovoLOG) 100 UNIT/ML VIAL SQ SCH ×4 (06:59→20:43)
[2020-05-03] MEDS: BALSALAZIDE DISODIUM 750 MG CAPSULE PO SCH ×3 (08:07→20:42)
[2020-05-03] MEDS: HYDROCORTISONE SUCCINATE 100 MG/2 ML VIAL IV SCH (08:07)
[2020-05-03] MEDS: allopurinoL 100 MG TAB PO SCH ×3 (08:07→20:42)
[2020-05-03] MEDS: PREGABALIN 100 MG CAP PO SCH ×2 (08:08→20:42)
[2020-05-03] MEDS: PHENAZOPYRIDINE 200 MG TAB PO SCH ×3 (08:08→20:42)
[2020-05-03] MEDS: MULTIVITAMINS, THERA 1 EACH TAB PO SCH (08:08)
[2020-05-03 08:10] LABS: Calcium 7.8 mg/dL (8.4-10.2); Magnesium 1.8 mg/dL (1.6-2.3); Potassium 2.8 mmol/L (3.5-5.1)
[2020-05-03] MEDS ORDERED: MAGNESIUM SULFATE-D5W PMX 1 GM in DEXTROSE/WATER 1 100ML.BAG IVPB ONE (09:29)
[2020-05-03] MEDS ORDERED: Potassium Replacement Protocol 1 EACH MISC MISCELLANE PRN (09:30)
--- NOTE | 2020-05-03 09:41 | P.PN ---
Progress Note - Text Progress Note Date: 05/03/20 The serum creatinine level is gradually improving and today was 2.55. Recent bladder biopsies have shown interstitial cystitis and intestinal (goblet cell) metaplasia, this significance of which is unclear. The urine culture was negative, as expected. The Peoples catheter is draining clear yellow urine. From a urologic standpoint, the Peoples catheter may be removed when no longer medically needed and warfarin can be resumed.
[2020-05-03] MEDS: POTASSIUM CHLORIDE ER 20 MEQ TAB.ER PO SCH ×5 (10:13→20:42)
--- NOTE | 2020-05-03 10:19 | P.PN ---
Subjective Patient is seen in follow-up for acute kidney injury. Renal function continues to improve. Denies chest pain or shortness of breath. Admits to chronic diarrhea. No chest pain or shortness of breath. Hemodynamically stable. Vital signs are stable. General: The patient appeared well nourished and normally developed. HEENT: Head exam is unremarkable. Neck is without jugular venous distension. LUNGS: Lungs are clear to auscultation and percussion. Breath sounds decreased. HEART: Rate and Rhythm are regular. ABDOMEN: Soft, nontender. EXTREMITITES: Trace edema. Objective - Vital Signs Vital signs: Vital Signs Temp 97.6 F 05/03/20 08:00 Pulse 92 05/03/20 08:00 Resp 18 05/03/20 08:00 BP 129/79 05/03/20 08:00 Pulse Ox 97 05/03/20 08:00 Intake & Output 05/02/20 05/03/20 05/03/20 18:59 06:59 18:59 Intake Total 360 118 Output Total 1150 726 Balance -790 -726 118 Weight 95.5 kg Intake: Oral 360 118 Output: Urine 1150 725 Stool 1 Other: Voiding Method Indwelling Catheter Indwelling Catheter Indwelling Catheter # Bowel Movements 3 2 1 - Labs CBC & Chem 7: 05/01/20 05:26 05/03/20 07:05 Labs: Abnormal Lab Results - Last 24 Hours (Table) 05/02/20 05/02/20 05/02/20 Range/Units 11:49 16:58 20:35 Potassium (3.5-5.1) mmol/L BUN (7-17) mg/dL Creatinine (0.52-1.04) mg/dL Glucose (74-99) mg/dL POC Glucose (mg/dL) 229 H 240 H 189 H (75-99) mg/dL Calcium (8.4-10.2) mg/dL 05/03/20 05/03/20 Range/Units 06:55 07:05 Potassium 2.8 L (3.5-5.1) mmol/L BUN 48 H (7-17) mg/dL Creatinine 2.55 H (0.52-1.04) mg/dL Glucose 204 H (74-99) mg/dL POC Glucose (mg/dL) 232 H (75-99) mg/dL Calcium 7.8 L (8.4-10.2) mg/dL Microbiology - Last 24 Hours (Table) 04/28/20 14:34 Blood Culture - Preliminary Blood No Growth after 96 hours Assessment and Plan Plan: Assessment: 1. Acute kidney injury secondary to hemodynamic ATN. Improving. Creatinine 2.55 today. 2. Chronic kidney disease stage III with baseline creatinine in the range of 1.6-1.8. 3. Hypokalemia from poor intake and steroids. Magnesium normal. 4. Adrenal insufficiency maintained on IV Solu-Cortef. 5. Interstitial cystitis. Urology following. Peoples catheter to be removed today. Plan: Hep-Lock IV fluids. Potassium being replaced. Discontinue IV Solu-Cortef. Start oral Cortef 10 mg twice daily. Monitor blood pressure.
[2020-05-03] MEDS: HYDROCORTISONE 10 MG TAB PO SCH ×2 (10:28→20:42)
[2020-05-03 11:48] LABS: Glucose,Whole Blood 185 mg/dL (75-99)
--- NOTE | 2020-05-03 12:47 | P.PN ---
Subjective Progress Note Date: 05/03/20 Principal diagnosis: Acute hypotension, secondary to adrenal insufficiency A 74-year-old female patient who got transferred to the emergency department from the outpatient surgical center as the patient was found to be quite weak and hypotensive. The patient reported that she hasn't been feeling good and her condition was declining since which is approximately 3 days ago. The patient was evaluated in emerged department on 04/24/2020 and the patient was diagnosed having a UTI based on the abnormal UA. Nevertheless, during cultures came back negative. At that time, the patient was discharged home on Levaquin 500 milligrams for a total of 5 days. Note that the patient was placed on antibiotics which cause extreme diarrhea and worsening of her underlying coli tis. Today, the patient was supposed to have a cystoscopy for underlying bladder pain and dysfunction. She was found to be quite 6 and she was sent over.. No fever. No chills no focal neurological deficit. The blood work showed an acute on top of chronic kidney failure. The patient's baseline creatinine was around 1.8 and current creatinine is up to 4.9. Urine is up to 76. The patient is a component of non-anion gap metabolic acidosis with a gap of 11 and a serum bicarb of 13. Sodium is at 133. The white cell count is at 4.3. Platelet counts have dropped down to 50. The patient is already being given a total of 370 fluids and the patient is starting on norepinephrine for blood pressure support. The INR is subtherapeutic as the patient has chronic atrial fibrillation. Today's INR is at 1.3. The patient remains in atrial fibrillation. The rate of 87. 04/29/2020 I'm seeing the patient for a follow-up and she was seen in consultation yesterday. The patient is doing well. She is on normal saline at the rate of 75 mL an hour. She received a total of 4 L of IV fluid bolus and she is on norepinephrine infusion at 0.05 g per KG per minute. She is on room air oxygen with a pulse of 75%. Chest x-ray remains clear. Ultrasound of the kidneys have shown no evidence of any hydronephrosis. The kidneys of normal size and there is a small cyst in the lower portion of the right kidney. The echocardiogram showed atrial fibrillation. The patient has an ejection fraction of 50-55%. PA pressures around 45 mmHg and there is no evidence of any pulmonary hypertension. Blood work from today shows no significant leukocytosis. White cell count is at 5.8. INR is 1.8 with a PT of 17.3. As for the renal function, the patient continues to have impaired renal function with a creatinine of 4.8 with a mean of 72. Serum bicarb is a 13 and the sodium is at 134. Potassium is at 5.0. Urine cultures are still negative and the patient is covered with IV Zosyn as an empiric antibiotic coverage. Coumadin was restarted. Consultation was placed for urology. 04/30/2020, the patient is off pressors since 4:00 this morning. The patient is having some vague abdominal discomfort and it seems that she is constipated and she is to have a bowel movement. She is off levo fed. She is on a bicarb infusion at the rate of 100 mL an hour. She remains on empiric antibiotic cov erage with IV Zosyn. In terms of her blood work, the serum bicarb is improved and it's up to 18. The creatinine is up to 4.3 with a BUN of 71. Renal function obviously still impaired. The patient was again seen by urology. Apparently the patient has had multiple urine cultures all of them being negative. She has changes consistent with cystitis and biopsies were taken. She remains in atrial fibrillation. The patient has a therapeutic PT/INR with an INR of 2.2 and the heart rate is well-controlled for now. Altered mentation. No nausea. No vomiting. No abdominal pain. Note that she has history of inflammatory bowel disease. On 05/01/2020, the patient is doing well. Hemodynamically stable. Serum cortisol was low. The patient was given a cosyntropin stimulation test and the test was positive for adrenal insufficiency. Based on that, the patient was placed on hydrocortisone 100 mg IV every 12 hours. Nevertheless, she is currently off pressors. Her PT/INR was therapeutic while eating on Coumadin. No abdominal pain. She has some pelvic discomfort mainly in the suprapubic area. Peoples catheter is in place. No hematuria. Antibodies are currently discontinued. CAT scan of the abdomen and pelvis was noted from yesterday. They have function continues to improve. The VNA is down in the creatinine is down to 3.43. She is on IV fluids with D5 bicarb infusion at the rate of 100 mL an hour. Her serum bicarbonate has normalized and the patient be switched to normal saline solution at a rate of 50 mL an hour. No altered mentation pH is utilizing her CPAP overnight. No cough or sputum production. No chest pain. 05/02/2020, the patient continues to show improvement in the renal function and creatinine is down to 2.7. No significant abdominal pain. She is having bowel movements and no diarrhea. Some pelvic discomfort related to interstitial cystitis. Biopsies of the bladder has been done. Hemodynamically stable. No signs of any hypotension. No fever, no chills. Cultures of been negative and antibiotics and been discontinued. The patient has no new complaints otherwise for now. The patient is seen today 05/03/2020 in follow-up on the selective care unit. She is awake and alert in no acute distress. Resting quite comfortably in bed. Maintaining good O2 saturations in the mid 90s on room air. She's afebrile. Hemodynamically stable. No significant hypotension. Blood and urine cultures revealed no growth. Sodium 139. Potassium 2.8. Creatinine 2.55. Objective - Vital Signs Vital signs: Vital Signs Temp 97.5 F L 05/03/20 12:00 Pulse 90 05/03/20 12:00 Resp 18 05/03/20 12:00 BP 138/75 05/03/20 12:00 Pulse Ox 96 05/03/20 12:00 Intake & Output 05/02/20 05/03/20 05/03/20 18:59 06:59 18:59 Intake Total 360 118 Output Total 1150 726 Balance -790 -726 118 Weight 95.5 kg Intake: Oral 360 118 Output: Urine 1150 725 Stool 1 Other: Voiding Method Indwelling Catheter Indwelling Catheter Indwelling Catheter # Bowel Movements 3 2 1 - Exam General Appearance: Awake and alert very pleasant 74-year-old female patient, on room air, no diaphoresis, dyspnea, pallor, or respiratory distress and speech not interrupted by breaths, not cachectic, well nourished, appears well, and obesity. HEENT no pursed lip breathing, jugular venous distention, mucous membr ane cyanosis, or perioral cyanosis and mallampati classification: class 1 and Mallampati Classification: Class 4. Chest no retractions, rhonchi, hyperinflation, barrel chest, sternocleidomastoid muscle contractions, supraclavicular retractions, intercostal retractions, prolonged expiratory wheezing, or decreased air movement and decreased air movement. Heart no right ventricular heave, distant heart sounds, or s3 gallop and irregular heart rhythm: totally irregular; irregular, secondary to AFIB. GI bowel sounds: hyperactive (borborygmi) and diminished or absent. Extremities no cyanosis, clubbing, or edema. Neurologic improved her mentation compared to yesterday and the patient is awake and alert and following commands and answering questions appropriately.. Skin: General Appearance normal and (normal) normal except as noted. - Labs CBC & Chem 7: 05/01/20 05:26 05/03/20 07:05 Labs: Abnormal Lab Results - Last 24 Hours (Table) 05/02/20 05/02/20 05/03/20 Range/Units 16:58 20:35 06:55 Potassium (3.5-5.1) mmol/L BUN (7-17) mg/dL Creatinine (0.52-1.04) mg/dL Glucose (74-99) mg/dL POC Glucose (mg/dL) 240 H 189 H 232 H (75-99) mg/dL Calcium (8.4-10.2) mg/dL 05/03/20 05/03/20 Range/Units 07:05 11:47 Potassium 2.8 L (3.5-5.1) mmol/L BUN 48 H (7-17) mg/dL Creatinine 2.55 H (0.52-1.04) mg/dL Glucose 204 H (74-99) mg/dL POC Glucose (mg/dL) 185 H (75-99) mg/dL Calcium 7.8 L (8.4-10.2) mg/dL Microbiology - Last 24 Hours (Table) 04/28/20 14:34 Blood Culture - Preliminary Blood No Growth after 96 hours Assessment and Plan Assessment: 1 acute hypotension, with possibly a component of adrenal insufficiency, recovered 2 acute kidney injury on top of chronic stage III kidney disease, improving 3 obstructive sleep apnea with an AHI of 15 and the patient is on a CPAP at a pressure of 10 cm of water on outpatient basis 4 mild intermittent bronchial asthma 5 chronic atrial fibrillation maintained on long-term medical condition with warfarin with a therapeutic PT/INR at 2.0 6 diabetes mellitus without any complications 7 history of hypertension 8 morbid obesity 9 inflammatory bowel disease, maintain on mesalamine an outpatient basis 10 hypothyroidism, maintained on Synthroid on outpatient basis 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 The patient apparently had negative cultures. The patient intraoperatively was found to have diffuse erythema suggestive of cystitis despite the negative cultures. Biopsies were taken. Plan The patient was seen and evaluated by Dr. Isadora Bermudez from the pulmonary and critical care standpoint We'll see the patient on an as-needed basis I, the cosigning physician, performed a history & physical examination of the patient. Lungs sounds are clear. Maintaining good O2 saturations in the 90s on room air. I discussed the assessment and plan of care with my nurse practitioner, Autumn Rutherford. I attest to the above note as dictated by her.
[2020-05-03 14:17] LABS: INR 1.2 (<1.2); Prothrombin Time 11.8 sec (9.0-12.0)
[2020-05-03 17:28] LABS: Glucose,Whole Blood 183 mg/dL (75-99)
[2020-05-03] MEDS ORDERED: WARFARIN 2 MG TAB PO ONE (18:00)
[2020-05-03] MEDS ORDERED: WARFARIN 0.5 MG TAB PO ONE (18:00)
[2020-05-03 20:25] LABS: Glucose,Whole Blood 222 mg/dL (75-99)
--- NOTE | 2020-05-03 23:10 | PN ---
PROGRESS NOTE DATE OF SERVICE: 05/03/2020 REASON FOR FOLLOW UP: Cystitis and colitis, slight diarrhea. INTERVAL HISTORY: Patient is currently afebrile, has been feeling better, breathing comfortably. The patient diarrhea has resolved with no bowel movement today. Denies having any chest pain or shortness of breath or cough. Peoples catheter has been discontinued. PHYSICAL EXAMINATION: Blood pressure 120/70 with a pulse of 90. Temperature 97.5. She is 94% on room air. General description is an elderly female lying in bed in no distress. Respiratory system: Unlabored breathing. Clear to auscultation anteriorly. Heart S1, S2. Regular rate and rhythm. Abdomen soft, no tenderness. LABS: Cultures have been negative so far. DIAGNOSTIC IMPRESSION AND PLAN: 1. Patient with cystitis. So far culture has been negative. Has been maintained off antibiotic therapy. 2. Diarrhea, colitis, possible antibiotic associated, improved with discontinuation of antibiotics. 3. Continue to use Questran as needed. MMODL / IJN: [id number] /
--- NOTE | 2020-05-04 00:35 | P.PN ---
Subjective Progress Note Date: 05/03/20 Principal diagnosis: Hypotension Mr. Colin is a 74-year-old female with a past medical history of asthma, fibromyalgia, hypertension, rheumatoid arthritis, obstructive sleep apnea chronic atrial fibrillation, hypothyroidism transferred from outpatient surgical center as she was found to be weak and hypotensive. Eventually patient was thought to have hypotension due to dehydration and possible sepsis. She was also having acute kidney injury at the time of admission. Patient complains of generalized weakness and dizziness at times after walking. She is currently being followed by multiple consultants including urology, nephrology, pulmonary, ID. On reviewing the patient's vitals from this morning she has been afebrile for the past 24 hours blood pressure 128/73, saturating at 94% on room air. Patient denies having any chest pain or palpitations. No cough or difficulty breathing. No abdominal pain nausea vomiting or diarrhea. On reviewing her labs potassium is low at 2.9 creatinine slowly trending down to 2.55 today her blood sugars have been slightly on the higher side running around 200s. Active Medications Acetaminophen (Tylenol Tab) 500 mg PO DAILY PRN PRN Reason: Pain Last Admin: 04/30/20 17:35 Dose: 500 mg Documented by: Allopurinol (Zyloprim) 100 mg PO TID [facility] Last Admin: 05/03/20 20:42 Dose: 100 mg Documented by: Balsalazide (Colazal) 2,250 mg PO TID [facility] Last Admin: 05/03/20 20:42 Dose: 2,250 mg Documented by: Diphenoxylate HCl/Atropine (Lomotil) 2 each PO HS PRN PRN Reason: Constipation Fluticasone Propionate (Flonase Nasal [place]) 2 spray EA NOSTRIL DAILY PRN PRN Reason: Allergy Symptoms Hydrocortisone (Cortef) 10 mg PO BID [facility] Last Admin: 05/03/20 20:42 Dose: 10 mg Documented by: Insulin Aspart (Novolog) 0 unit SQ [facility]; Protocol Last Admin: 05/03/20 20:43 Dose: 3 unit Documented by: Levothyroxine Sodium (Synthroid) 88 mcg PO DAILY@0630 [facility] Last Admin: 05/03/20 06:30 Dose: 88 mcg Documented by: Loperamide HCl (Imodium) 4 mg PO DAILY PRN PRN Reason: Loose Stool Miscellaneous Information (Coumadin Per Pharmacy) 1 each MISCELLANE DIRECTED PRN PRN Reason: Per Protocol Miscellaneous Information (Potassium Per Protocol) 1 each MISCELLANE DAILY PRN; Protocol PRN Reason: Per Protocol Multivitamins (Theragran) 1 each PO DAILY [facility] Last Admin: 05/03/20 08:08 Dose: 1 each Documented by: Naloxone HCl (Narcan) 0.2 mg IV Q2M PRN PRN Reason: Opioid Reversal Ondansetron HCl (Zofran) 4 mg IVP Q6HR PRN PRN Reason: Nausea And Vomiting Last Admin: 05/02/20 10:36 Dose: 4 mg Documented by: Pantoprazole Sodium (Protonix) 40 mg PO AC-BID [facility] Last Admin: 05/03/20 17:22 Dose: 40 mg Documented by: Phenazopyridine HCl (Pyridium) 200 mg PO TID [facility] Last Admin: 05/03/20 20:42 Dose: 200 mg Documented by: Pregabalin (Lyrica) 200 mg PO BID [facility] Last Admin: 05/03/20 20:42 Dose: 200 mg Documented by: Objective - Vital Signs Vital signs: Vital Signs Temp 97.5 F L 05/03/20 12:00 Pulse 90 05/03/20 12:00 Resp 18 05/03/20 12:00 BP 138/75 05/03/20 12:00 Pulse Ox 96 05/03/20 12:00 Intake & Output 05/02/20 05/03/20 05/03/20 18:59 06:59 18:59 Intake Total 360 1018 Output Total 1150 726 950 Balance -790 -726 68 Weight 95.5 kg Intake: IV 900 Magnesium Sulfate-D5w Pmx 100 1 gm In Dextrose/Water 1 100ml.bag @ 100 mls/hr IVPB ONCE ONE Rx#: [id number] Sodium Chloride 0.9% 1, 800 000 ml @ 50 mls/hr IV . Q20H [facility] Rx#:[id number] Oral 360 118 Output: Urine 1150 725 950 Uretheral (Peoples) 950 Stool 1 Other: Voiding Method Indwelling Catheter Indwelling Catheter Indwelling Catheter # Bowel Movements 3 2 1 - Exam Gen: lying in bed, awake, alert and oriented 3, well-developed, well-nourished. HEENT: Head is atraumatic, normocephalic. Pupils equal, round. Sclerae is anicteric. NECK: Supple. No JVD. No lymphadenopathy. No thyromegaly. LUNGS: Breath sounds diminished at the bases with a few scattered rhonchi noted. HEART: Regular rate and rhythm. No murmur. ABDOMEN: Soft. Bowel sounds are present. No masses. No tenderness. EXTREMITIES: No calf tenderness. Bilateral pitting edema up to the knee joint NEUROLOGICAL: Patient is awake, alert and oriented x3. No focal deficits - Labs CBC & Chem 7: 05/01/20 05:26 05/04/20 06:11 Labs: Abnormal Lab Results - Last 24 Hours (Table) 05/02/20 05/02/20 05/03/20 Range/Units 16:58 20:35 06:55 INR (<1.2) Potassium (3.5-5.1) mmol/L BUN (7-17) mg/dL Creatinine (0.52-1.04) mg/dL Glucose (74-99) mg/dL POC Glucose (mg/dL) 240 H 189 H 232 H (75-99) mg/dL Calcium (8.4-10.2) mg/dL 05/03/20 05/03/20 05/03/20 Range/Units 07:05 11:47 13:55 INR (<1.2) Potassium 2.8 L 2.9 L (3.5-5.1) mmol/L BUN 48 H (7-17) mg/dL Creatinine 2.55 H (0.52-1.04) mg/dL Glucose 204 H (74-99) mg/dL POC Glucose (mg/dL) 185 H (75-99) mg/dL Calcium 7.8 L (8.4-10.2) mg/dL 05/03/20 Range/Units 13:55 INR 1.2 H (<1.2) Potassium (3.5-5.1) mmol/L BUN (7-17) mg/dL Creatinine (0.52-1.04) mg/dL Glucose (74-99) mg/dL POC Glucose (mg/dL) (75-99) mg/dL Calcium (8.4-10.2) mg/dL Microbiology - Last 24 Hours (Table) 04/28/20 14:34 Blood Culture - Preliminary Blood No Growth after 96 hours Assessment and Plan Assessment: ASSESSMENT Severe acute hypotension high possibility of adrenal insufficiency Hyponatremia Thrombocytopenia History of asthma Fibromyalgia Hypertension History of DJD History of rheumatoid arthritis History of sleep apnea Hypothyroidism History of 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 Patient's creatinine slowly trending back to normal. Due to adrenal insufficiency patient was on IV Solu Cortef, that is changed to p.o. by nephrology Dr. Michaels today. Will make adjustments in insulin depending upon her blood sugar levels. Patient has been off of all antibiotics. So far blood cultures and urine cultures no growth. Further recommendations to follow depending on the progress of the patient.
[2020-05-04 06:01] LABS: Glucose,Whole Blood 139 mg/dL (75-99)
[2020-05-04] MEDS: INSULIN ASPART (NovoLOG) 100 UNIT/ML VIAL SQ SCH ×5 (06:15→21:09)
[2020-05-04 06:45] LABS: INR 1.1 (<1.2); Prothrombin Time 11.6 sec (9.0-12.0)
[2020-05-04] MEDS: ACETAMINOPHEN TAB 500 MG TAB PO PRN (06:45)
[2020-05-04] MEDS: PANTOPRAZOLE 40 MG TABLET PO SCH ×2 (06:45→15:59)
[2020-05-04] MEDS: LEVOTHYROXINE 88 MCG TAB PO SCH (06:45)
[2020-05-04 06:51] LABS: Calcium 8.3 mg/dL (8.4-10.2); Magnesium 1.8 mg/dL (1.6-2.3)
[2020-05-04] MEDS ORDERED: HYDROcodone/APAP 5-325MG 1 EACH TAB PO PRN (08:02)
[2020-05-04] MEDS: allopurinoL 100 MG TAB PO SCH ×3 (08:48→20:59)
[2020-05-04] MEDS: PREGABALIN 100 MG CAP PO SCH ×2 (08:48→21:00)
[2020-05-04] MEDS: MULTIVITAMINS, THERA 1 EACH TAB PO SCH (08:48)
[2020-05-04] MEDS: PHENAZOPYRIDINE 200 MG TAB PO SCH ×3 (09:09→21:00)
[2020-05-04] MEDS: HYDROCORTISONE 10 MG TAB PO SCH ×2 (09:10→21:00)
[2020-05-04] MEDS: BALSALAZIDE DISODIUM 750 MG CAPSULE PO SCH ×3 (09:10→20:59)
[2020-05-04] MEDS ORDERED: POTASSIUM CHLORIDE ER 20 MEQ TAB.ER PO STA (09:49)
[2020-05-04] MEDS ORDERED: FUROSEMIDE 10 MG/ML 4 ML VIAL IV STA (09:49)
--- NOTE | 2020-05-04 09:51 | P.PN ---
Subjective Patient is seen in follow-up for acute kidney injury. Renal function continues to improve. Denies chest pain or shortness of breath. Admits to chronic diarrhea. No chest pain or shortness of breath. Hemodynamically stable. Complains of swelling in the legs. Vital signs are stable. General: The patient appeared well nourished and normally developed. HEENT: Head exam is unremarkable. Neck is without jugular venous distension. LUNGS: Lungs are clear to auscultation and percussion. Breath sounds decreased. HEART: Rate and Rhythm are regular. ABDOMEN: Soft, nontender. EXTREMITITES: 2+ edema. Objective - Vital Signs Vital signs: Vital Signs Temp 97.4 F L 05/04/20 08:00 Pulse 96 05/04/20 08:00 Resp 22 05/04/20 08:00 BP 116/60 05/04/20 08:00 Pulse Ox 96 05/04/20 08:00 Intake & Output 05/03/20 05/04/20 05/04/20 18:59 06:59 18:59 Intake Total 1138 Output Total 1376 1050 Balance -238 -1050 Weight 97.9 kg Intake: IV 900 Magnesium Sulfate-D5w Pmx 100 1 gm In Dextrose/Water 1 100ml.bag @ 100 mls/hr IVPB ONCE ONE Rx#: [id number] Sodium Chloride 0.9% 1, 800 000 ml @ 50 mls/hr IV . Q20H [facility] Rx#:[id number] Oral 238 Output: Urine 1025 1050 Straight 700 Uretheral (Peoples) 950 Post Void Residual 350 Stool 1 Other: Voiding Method Toilet Toilet Self-Catheterization # Voids 1 1 # Bowel Movements 1 1 - Labs CBC & Chem 7: 05/01/20 05:26 05/04/20 06:11 Labs: Abnormal Lab Results - Last 24 Hours (Table) 05/03/20 05/03/20 05/03/20 Range/Units 11:47 13:55 13:55 INR 1.2 H (<1.2) Potassium 2.9 L (3.5-5.1) mmol/L BUN (7-17) mg/dL Creatinine (0.52-1.04) mg/dL Glucose (74-99) mg/dL POC Glucose (mg/dL) 185 H (75-99) mg/dL Calcium (8.4-10.2) mg/dL 05/03/20 05/03/20 05/04/20 Range/Units 17:27 20:23 05:58 INR (<1.2) Potassium (3.5-5.1) mmol/L BUN (7-17) mg/dL Creatinine (0.52-1.04) mg/dL Glucose (74-99) mg/dL POC Glucose (mg/dL) 183 H 222 H 139 H (75-99) mg/dL Calcium (8.4-10.2) mg/dL 05/04/20 Range/Units 06:11 INR (<1.2) Potassium 3.0 L (3.5-5.1) mmol/L BUN 44 H (7-17) mg/dL Creatinine 2.44 H (0.52-1.04) mg/dL Glucose 142 H (74-99) mg/dL POC Glucose (mg/dL) (75-99) mg/dL Calcium 8.3 L (8.4-10.2) mg/dL Microbiology - Last 24 Hours (Table) 04/28/20 14:34 Blood Culture - Preliminary Blood No Growth after 120 hours Assessment and Plan Plan: Assessment: 1. Acute kidney injury secondary to hemodynamic ATN. Improving. Creatinine 2.44 today. 2. Chronic kidney disease stage III with baseline creatinine in the range of 1.6-1.8. 3. Hypokalemia from poor intake and steroids. Magnesium normal. 4. Adrenal insufficiency maintained on oral Cortef. 5. Interstitial cystitis. Urology following. Peoples catheter had to be reinserted due to urinary retention. 6. Lower extremity edema. Plan: Maintain oral Cortef. Replace potassium. 80 mg once today. Lasix 40 mg IV once today. Repeat potassium level this evening. Continue to monitor renal function and urine output.
[2020-05-04] MEDS: POTASSIUM CHLORIDE 10 MEQ in WATER FOR INJECTION 1 100ML.BAG IVPB SCH ×6 (10:49→17:54)
[2020-05-04 11:51] LABS: Glucose,Whole Blood 142 mg/dL (75-99)
--- NOTE | 2020-05-04 12:42 | P.PN ---
Progress Note - Text Progress Note Date: 05/04/20 The patient experienced urinary difficulty yesterday. A Peoples catheter was placed with return of 700 cc of urine. The catheter is currently draining clear yellow urine. 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 She is to be discharged home with the Peoples catheter and follow up with me in the office in one week. She will obtain the results of her colonoscopy which was done in July 2019 at [facility]. She denies fecaluria and pneumaturia. She hopes to avoid a repeat colonoscopy, and I will likely only suggest it if the colonoscopy showed evidence of dive rticulosis. The computed tomography scan was nondiagnostic in terms of determining whether there is or is not an enterovesical fistula. 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 I will consider the performance of a cystogram at that time to determine whether or not she has a fistula. I have suggested that she consume poppy seeds prior to her follow-up visit in the office, and observe the urine for the presence of any poppy seeds which would confirm the presence of an enterovesical fistula. Please notify me if we can be of any further assistance during this hospitalization.
[2020-05-04 13:17] VITALS: BMI 33.7
--- NOTE | 2020-05-04 15:34 | ECHOF ---
Referral Reason:Run of V-tach MEASUREMENTS -------- HEIGHT: 170.2 cm WEIGHT: 95.3 kg BP: 129/79 IVSd: 1.4 cm (0.6 - 1.1) LVIDd: 4.6 cm (3.9 - 5.3) LVPWd: 1.3 cm (0.6 - 1.1) IVSs: 1.7 cm LVIDs: 2.9 cm LVPWs: 1.6 cm FINDINGS -------- Sinus rhythm. This was a technically adequate study. Limited Study The left ventricular size is normal. There is mild concentric left ventricular hypertrophy. Overa ll left ventricular systolic function is mildly impaired with, an EF between 45 - 50 %. CONCLUSIONS -------- 1. The left ventricular size is normal. 2. There is mild concentric left ventricular hypertrophy. 3. Overall left ventricular systolic function is mildly impaired with, an EF between 45 - 50 %. FIREFIGHTER TYPE ONE: Verna Garay RDCS
[2020-05-04] MEDS: LOPERAMIDE 2 MG CAP PO PRN (15:59)
--- NOTE | 2020-05-04 16:50 | P.PN ---
Subjective Progress Note Date: 05/04/20 Principal diagnosis: Hypotension Mr. Colin is a 74-year-old female with a past medical history of asthma, fibromyalgia, hypertension, rheumatoid arthritis, obstructive sleep apnea chronic atrial fibrillation, hypothyroidism transferred from outpatient surgical center as she was found to be weak and hypotensive. Eventually patient was thought to have hypotension due to dehydration and possible sepsis. She was also having acute kidney injury at the time of admission. Patient complains of generalized weakness and dizziness at times after walking. She is currently being followed by multiple consultants including urology, nephrology, pulmonary, ID. On reviewing the patient's vitals from this morning she has been afebrile for the past 24 hours blood pressure 128/73, saturating at 94% on room air. Patient denies having any chest pain or palpitations. No cough or difficulty breathing. No abdominal pain nausea vomiting or diarrhea. On reviewing her labs potassium is low at 2.9 creatinine slowly trending down to 2.55 today her blood sugars have been slightly on the higher side running around 200s. On 05/04/2020- patient is comfortably sitting in in a chair. Her daughter is at bedside. 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 Peoples's catheter was inserted today. She still continues to have lower extremity swelling. Patient's creatinine is slowly trending down. Electrolytes are being replaced. Patient denies having any fevers chills or rigors. No cough or difficulty breathing. No chest pain or palpitations. No abdominal pain, nausea or vomiting. Vitals have been stable, afebrile, blood pressure 122/90, saturating at 93% on room air. Patient's left lites from this morning showing sodium of 138, potassium 3.0, bicarbonate 28, chloride 106, (44, creatinine 2.44. Active Medications Acetaminophen (Tylenol Tab) 500 mg PO DAILY PRN PRN Reason: Pain Last Admin: 05/04/20 06:45 Dose: 500 mg Documented by: Hydrocodone Bitart/Acetaminophen ([place] 5-325) 1 each PO Q4HR PRN PRN Reason: Pain Last Admin: 05/04/20 08:47 Dose: 1 each Documented by: Allopurinol (Zyloprim) 100 mg PO TID NENA Last Admin: 05/04/20 15:59 Dose: 100 mg Documented by: Balsalazide (Colazal) 2,250 mg PO TID [facility] Last Admin: 05/04/20 16:00 Dose: 2,250 mg Documented by: Diphenoxylate HCl/Atropine (Lomotil) 2 each PO HS PRN PRN Reason: Constipation Fluticasone Propionate (Flonase Nasal [place]) 2 spray EA NOSTRIL DAILY PRN PRN Reason: Allergy Symptoms Hydrocortisone (Cortef) 10 mg PO BID [facility] Last Admin: 05/04/20 09:10 Dose: 10 mg Documented by: Insulin Aspart (Novolog) 0 unit SQ ACHS [facility]; Protocol Last Admin: 05/04/20 13:07 Dose: 1 unit Documented by: Levothyroxine Sodium (Synthroid) 88 mcg PO DAILY@0630 [facility] Last Admin: 05/04/20 06:45 Dose: 88 mcg Documented by: Loperamide HCl (Imodium) 4 mg PO DAILY PRN PRN Reason: Loose Stool Last Admin: 05/04/20 15:59 Dose: 4 mg Documented by: Miscellaneous Information (Coumadin Per Pharmacy) 1 each MISCELLANE DIRECTED PRN PRN Reason: Per Protocol Miscellaneous Information (Potassium Per Protocol) 1 each MISCELLANE DAILY PRN; Protocol PRN Reason: Per Protocol Multivitamins (Theragran) 1 each PO DAILY [facility] Last Admin: 05/04/20 08:48 Dose: 1 each Documented by: Naloxone HCl (Narcan) 0.2 mg IV Q2M PRN PRN Reason: Opioid Reversal Ondansetron HCl (Zofran) 4 mg IVP Q6HR PRN PRN Reason: Nausea And Vomiting Last Admin: 05/02/20 10:36 Dose: 4 mg Documented by: Pantoprazole Sodium (Protonix) 40 mg PO AC-BID [facility] Last Admin: 05/04/20 15:59 Dose: 40 mg Documented by: Phenazopyridine HCl (Pyridium) 200 mg PO TID [facility] Last Admin: 05/04/20 16:00 Dose: 200 mg Documented by: Pregabalin (Lyrica) 200 mg PO BID [facility] Last Admin: 05/04/20 08:48 Dose: 200 mg Documented by: Warfarin Sodium (Coumadin) 3 mg PO ONCE@1800 ONE Stop: 05/04/20 18:01 Objective - Vital Signs Vital signs: Vital Signs Temp 98.3 F 05/04/20 12:00 Pulse 94 05/04/20 12:00 Resp 20 05/04/20 12:00 BP 125/67 05/04/20 12:00 Pulse Ox 93 L 05/04/20 12:00 Intake & Output 05/03/20 05/04/20 05/04/20 18:59 06:59 18:59 Intake Total 1138 200 Output Total 1376 1050 1000 Balance -238 -1050 -800 Weight 97.9 kg 97.9 kg Intake: IV 900 Magnesium Sulfate-D5w Pmx 100 1 gm In Dextrose/Water 1 100ml.bag @ 100 mls/hr IVPB ONCE ONE Rx#: [id number] Sodium Chloride 0.9% 1, 800 000 ml @ 50 mls/hr IV . Q20H [facility]NA Rx#:[id number] Oral 238 200 Output: Urine 1025 1050 1000 Straight 700 Uretheral (Peoples) 950 Post Void Residual 350 Stool 1 Other: Voiding Method Toilet Toilet Indwelling Catheter Self-Catheterization # Voids 1 1 # Bowel Movements 1 1 - Exam PHYSICAL EXAM Gen: lying in bed, awake, alert and oriented 3, well-developed, well-nourished. HEENT: Head is atraumatic, normocephalic. Pupils equal, round. Sclerae is anicteric. NECK: Supple. No JVD. No lymphadenopathy. No thyromegaly. LUNGS: Breath sounds diminished at the bases with a few scattered rhonchi noted. HEART: Regular rate and rhythm. No murmur. ABDOMEN: Soft. Bowel sounds are present. No masses. No tenderness. Peoples's catheter in place. EXTREMITIES: No calf tenderness. Bilateral pitting edema on both sides to the knee joint. NEUROLOGICAL: Patient is awake, alert and oriented x3. No focal deficits - Labs CBC & Chem 7: 05/01/20 05:26 05/04/20 06:11 Labs: Abnormal Lab Results - Last 24 Hours (Table) 05/03/20 05/03/20 05/04/20 Range/Units 17:27 20:23 05:58 Potassium (3.5-5.1) mmol/L BUN (7-17) mg/dL Creatinine (0.52-1.04) mg/dL Glucose (74-99) mg/dL POC Glucose (mg/dL) 183 H 222 H 139 H (75-99) mg/dL Calcium (8.4-10.2) mg/dL 05/04/20 05/04/20 Range/Units 06:11 11:49 Potassium 3.0 L (3.5-5.1) mmol/L BUN 44 H (7-17) mg/dL Creatinine 2.44 H (0.52-1.04) mg/dL Glucose 142 H (74-99) mg/dL POC Glucose (mg/dL) 142 H (75-99) mg/dL Calcium 8.3 L (8.4-10.2) mg/dL Microbiology - Last 24 Hours (Table) 04/28/20 14:34 Blood Culture - Preliminary Blood No Growth after 120 hours Assessment and Plan Assessment: ASSESSMENT Severe acute hypotension high possibility of adrenal insufficiency Hyponatremia Thrombocytopenia History of asthma Fibromyalgia Hypertension History of DJD History of rheumatoid arthritis History of sleep apnea Hypothyroidism History of 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 Patient's creatinine slowly trending back to normal. Peoples's catheter in place. 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 by nephrology Dr. Michaels . Will make adjustments in insulin depending upon her blood sugar levels. Patient has been off of all antibiotics. So far blood cultures and urine cultures no growth. Further recommendations to follow depe nding on the progress of the patient. Possible discharge in the next 24 hours.
[2020-05-04 16:59] LABS: Glucose,Whole Blood 161 mg/dL (75-99)
[2020-05-04] MEDS ORDERED: WARFARIN 3 MG TAB PO ONE (18:00)
[2020-05-04 21:07] LABS: Glucose,Whole Blood 152 mg/dL (75-99)
--- NOTE | 2020-05-04 23:35 | PN ---
PROGRESS NOTE DATE OF SERVICE: 05/04/2020 REASON FOR FOLLOWUP: Cystitis and colitis. INTERVAL HISTORY: Patient is currently afebrile. Peoples catheter has to be reinserted as the patient was unable to go. The patient suprapubic burning pain has improved. Denies having any chest pain or shortness of breath or cough. Did have one episode of loose stools today. PHYSICAL EXAMINATION: Blood pressure 122/59 with a pulse of 91, temperature 98.2. She is 93% on room air. General description is an elderly female lying in bed in no distress. RESPIRATORY SYSTEM: Unlabored breathing, clear to auscultation anteriorly. HEART: S1, S2. Regular rate and rhythm. ABDOMEN: Soft, no tenderness. EXTREMITIES: No edema of the feet. LABS: BUN of 44, creatinine is 2.44. Blood and urine culture has been negative. DIAGNOSTIC IMPRESSION AND PLAN: 1. Patient with suprapubic pain with concern for cystitis, possible interstitial cystitis. the culture has been negative. Currently being monitored off antibiotic. Continue Pyridium for symptomatic relief. 2. Diarrhea. Stool for Clostridium difficile was negative. Advised symptomatic treatment and encouraged to increase her yogurt intake. Continue supportive care. MMODL / IJN: [id number] /
[2020-05-05 06:09] LABS: Glucose,Whole Blood 193 mg/dL (75-99)
[2020-05-05] MEDS: LEVOTHYROXINE 88 MCG TAB PO SCH (06:30)
[2020-05-05] MEDS: INSULIN ASPART (NovoLOG) 100 UNIT/ML VIAL SQ SCH ×2 (06:30→12:09)
[2020-05-05] MEDS: PANTOPRAZOLE 40 MG TABLET PO SCH (06:30)
[2020-05-05 07:12] LABS: HCT 33.2 % (34.0-46.0); Hypochromasia Moderate; MCH 32.5 pg (25.0-35.0); MCHC 33.2 g/dL (31.0-37.0); MCV 97.9 fL (80.0-100.0); Macrocytosis Slight; RDW 15.7 % (11.5-15.5); WBC 5.8 k/uL (3.8-10.6)
[2020-05-05 07:20] LABS: INR 1.4 (<1.2); Prothrombin Time 13.9 sec (9.0-12.0)
[2020-05-05 07:24] LABS: Calcium 7.8 mg/dL (8.4-10.2); Magnesium 1.7 mg/dL (1.6-2.3); Potassium 3.8 mmol/L (3.5-5.1)
[2020-05-05] MEDS: allopurinoL 100 MG TAB PO SCH (08:29)
[2020-05-05] MEDS: MULTIVITAMINS, THERA 1 EACH TAB PO SCH (08:29)
[2020-05-05] MEDS: PREGABALIN 100 MG CAP PO SCH (08:29)
[2020-05-05] MEDS: PHENAZOPYRIDINE 200 MG TAB PO SCH ×2 (08:30→16:01)
[2020-05-05] MEDS: HYDROCORTISONE 10 MG TAB PO SCH (08:30)
[2020-05-05] MEDS: LOPERAMIDE 2 MG CAP PO PRN (08:30)
[2020-05-05] MEDS: BALSALAZIDE DISODIUM 750 MG CAPSULE PO SCH ×2 (08:30→16:00)
[2020-05-05 09:28] LABS: Band Neutrophils % 1 %; Eosinophils # (M) 0.12 k/uL (0-0.7); Lymphocytes # (M) 0.81 k/uL (1.0-4.8); Metamyelocytes # (M) 0.06 k/uL (0); Metamyelocytes % 1 %; Monocytes # (M) 0.17 k/uL (0-1.0); Myelocytes # (M) 0.06 k/uL (0); Myelocytes % 1 %; Neutrophils % (M) 80 %; Nucleated Red Blood Cells 0 /100 WBC (0-0); Total Cells Counted 200
[2020-05-05 09:29] LABS: Platelet Count 95 k/uL (150-450); Poikilocytosis (M) Present
[2020-05-05 11:36] LABS: Glucose,Whole Blood 161 mg/dL (75-99)
[2020-05-05] MEDS ORDERED: FUROSEMIDE 10 MG/ML 4 ML VIAL IV STA (11:40)
--- NOTE | 2020-05-05 11:41 | P.PN ---
Subjective Patient is seen in follow-up for acute kidney injury. Renal function continues to improve. Denies chest pain or shortness of breath. Admits to chronic diarrhea. No chest pain or shortness of breath. Hemodynamically stable. has Peoples catheter for urinary retention. Edema improved post Lasix. Vital signs are stable. General: The patient appeared well nourished and normally developed. HEENT: Head exam is unremarkable. Neck is without jugular venous distension. LUNGS: Lungs are clear to auscultation and percussion. Breath sounds decreased. HEART: Rate and Rhythm are regular. ABDOMEN: Soft, nontender. EXTREMITITES: 2+ edema. Objective - Vital Signs Vital signs: Vital Signs Temp 98 F 05/05/20 04:00 Pulse 92 05/05/20 04:00 Resp 16 05/05/20 04:00 BP 125/78 05/05/20 04:00 Pulse Ox 95 05/05/20 04:00 Intake & Output 05/04/20 05/05/20 05/05/20 18:59 06:59 18:59 Intake Total 700 Output Total 2300 1700 Balance -1600 -1700 Weight 97.9 kg 94.6 kg Intake: Intake, IV Titration 400 Amount Potassium Chloride 10 meq 400 In Water For Injection 1 100ml.bag @ 100 mls/hr IVPB Q1HR [facility] Rx#: [id number] Oral 300 Output: Urine 2300 1700 Other: Voiding Method Indwelling Catheter Indwelling Catheter # Voids 1 - Labs CBC & Chem 7: 05/05/20 06:55 05/05/20 06:55 Labs: Abnormal Lab Results - Last 24 Hours (Table) 05/04/20 05/04/20 05/04/20 Range/Units 11:49 16:57 20:48 RBC (3.80-5.40) m/uL Hgb (11.4-16.0) gm/dL Hct (34.0-46.0) % RDW (11.5-15.5) % Plt Count (150-450) k/uL Lymphocytes # (Manual) (1.0-4.8) k/uL Metamyelocytes # (Man) (0) k/uL Myelocytes # (Manual) (0) k/uL PT (9.0-12.0) sec INR (<1.2) Carbon Dioxide (22-30) mmol/L BUN (7-17) mg/dL Creatinine (0.52-1.04) mg/dL Glucose (74-99) mg/dL POC Glucose (mg/dL) 142 H 161 H 152 H (75-99) mg/dL Calcium (8.4-10.2) mg/dL 05/05/20 05/05/20 05/05/20 Range/Units 06:06 06:55 06:55 RBC (3.80-5.40) m/uL Hgb (11.4-16.0) gm/dL Hct (34.0-46.0) % RDW (11.5-15.5) % Plt Count (150-450) k/uL Lymphocytes # (Manual) (1.0-4.8) k/uL Metamyelocytes # (Man) (0) k/uL Myelocytes # (Manual) (0) k/uL PT 13.9 H (9.0-12.0) sec INR 1.4 H (<1.2) Carbon Dioxide 32 H (22-30) mmol/L BUN 42 H (7-17) mg/dL Creatinine 2.38 H (0.52-1.04) mg/dL Glucose 147 H (74-99) mg/dL POC Glucose (mg/dL) 193 H (75-99) mg/dL Calcium 7.8 L (8.4-10.2) mg/dL 05/05/20 05/05/20 Range/Units 06:55 11:34 RBC 3.40 L (3.80-5.40) m/uL Hgb 11.0 L (11.4-16.0) gm/dL Hct 33.2 L (34.0-46.0) % RDW 15.7 H (11.5-15.5) % Plt Count 95 L (150-450) k/uL Lymphocytes # (Manual) 0.81 L (1.0-4.8) k/uL Metamyelocytes # (Man) 0.06 H (0) k/uL Myelocytes # (Manual) 0.06 H (0) k/uL PT (9.0-12.0) sec INR (<1.2) Carbon Dioxide (22-30) mmol/L BUN (7-17) mg/dL Creatinine (0.52-1.04) mg/dL Glucose (74-99) mg/dL POC Glucose (mg/dL) 161 H (75-99) mg/dL Calcium (8.4-10.2) mg/dL Microbiology - Last 24 Hours (Table) 04/28/20 14:34 Blood Culture - Final Blood No Growth after 144 hours Assessment and Plan Plan: Assessment: 1. Acute kidney injury secondary to hemodynamic ATN. Improving. Creatinine 2.38 today. 2. Chronic kidney disease stage III with baseline creatinine in the range of 1.6-1.8. 3. Hypokalemia from poor intake and steroids. Magnesium normal. 4. Adrenal insufficiency maintained on oral Cortef. 5. Interstitial cystitis. Urology following. Peoples catheter had to be reinserted due to urinary retention. 6. Lower extremity edema. Plan: Maintain oral Cortef. repeat Lasix 40 mg IV today. Change to oral upon discharge. Add potassium supplementation. Continue to monitor renal function and urine output.
[2020-05-05] MEDS ORDERED: POTASSIUM CHLORIDE ER 20 MEQ TAB.ER PO SCH (11:45)
[2020-05-05 12:49] VITALS: BP 117/70; PULSE 103; RESP 18; TEMP 97.3
--- NOTE | 2020-05-05 14:06 | PN ---
PROGRESS NOTE DATE OF SERVICE: 05/04/2020 REASON FOR FOLLOWUP: Cystitis and diarrhea. INTERVAL HISTORY: The patient is currently afebrile. Patient is feeling better. Breathing comfortably. The patient's pain has improved. No nausea, vomiting, her diarrhea has improved as well. PHYSICAL EXAMINATION: Blood pressure 109/60 with a pulse of 120, temp is 97.9. She is 92% on room air. General description is an elderly female, up in the chair in no distress. RESPIRATORY SYSTEM: Unlabored breathing, clear to auscultation anteriorly. HEART: S1, S2. Regular rate and rhythm. ABDOMEN: Soft, no tenderness. LABS: Hemoglobin is 11.9, white count 5.8, BUN of 42, creatinine 2.38. Urine culture has been negative. DIAGNOSTIC IMPRESSION AND PLAN: 1. Patient with cystitis. Culture has been negative. Continues to remain with the primary team. 2. Patient with diarrhea. Stool for C diff negative. Continue symptomatic treatment, she has been advised to increase probiotic . MMODL / IJN: [id number] /
--- NOTE | 2020-05-05 16:41 | P.DS ---
Providers Date of admission: 04/28/20 13:56 Expected date of discharge: 05/05/20 Attending physician: Sury Collins Consults: 04/28/20 14:10 Consult Physician Urgent Consulting Provider: Racquel Johnson Consult Reason/Comments: Acute renal failure Do you want consulting provider notified?: Yes 04/28/20 15:30 Consult Physician Stat Consulting Provider: Natalia Muir Consult Reason/Comments: ICU management Do you want consulting provider notified?: Already Contacted 04/29/20 07:56 Consult Physician Routine Consulting Provider: Herb Jack Consult Reason/Comments: follow post biopsy 04/28/20 Do you want consulting provider notified?: Yes 04/30/20 15:11 Consult Physician Routine Consulting Provider: Khushi Sen Consult Reason/Comments: sepsis? Do you want consulting provider notified?: Yes Primary care physician: Johnny To [place] [facility] Course: Mr. Colin is a 74-year-old female with the past medical history of asthma, fibro-myalgia, hypertension, osteoporosis, rheumatoid arthritis, obstructive sleep apnea, thyroid disorder, chronic atrial fibrillation who was sent in from outpatient surgical center as she was quite weak and hypotensive. Patient was feeling declining in her energy levels for the past 3 days. The patient was evaluated in the emergency room on 04/24/2020 with a UTI for abnormal UA. But eventually the cultures became negative. So the patient was discharged home on Levaquin 500 milligrams daily for 5 days. After being placed on antibiotics patient was having extreme diarrhea and worsening of her underlying colitis. The patient was supposed to get a cystoscopy for underlying bladder dysfunction and pain. The patient had blood work done showing acute kidney injury and her creatinine was 4.76 at the time of admission and she was also found to be having non-anion gap metabolic acidosis with a gap of 11 and bicarbonate of 13. Patient was resuscitated with IV fluids and admitted for further management. As a part of workup for her acute kidney injury, patient had ultrasound of the kidney showing no evidence of hydronephrosis. Was started on antibiotics in the form of Zosyn for possible UTI. And eventually the cultures came back negative so the antibiotic was discontinued. 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 The patient had cosyntropin stimulation test and was positive for additional insufficiency, initially the patient was started on hydrocortisone that was eventually changed to oral Cortef. Multiple consultants are following the patient during the hospital stay including nephrology, urology, pulmonary, ID. She has been cleared by an intermediate discharged home. Patient stays with her sister and has home health care, so wants to be discharged home. Vital Signs 05/05/20 12:00 Temperature 97.3 F L Pulse Rate [ 103 H Bilateral Dorsalis Pedis] Pulse Rate [ 102 H Bilateral Radial] Respiratory 18 Rate Blood Pressure 117/70 [Right Arm Supine] O2 Sat by Pulse 96 Oximetry PHYSICAL EXAM Gen: lying in bed, awake, alert and oriented 3, well-developed, well-nourished. HEENT: Head is atraumatic, normocephalic. Pupils equal, round. Sclerae is anicteric. NECK: Supple. No JVD. No lymphadenopathy. No thyromegaly. LUNGS: Breath sounds diminished at the bases with a few scattered rhonchi noted. HEART: Regular rate and rhythm. No murmur. ABDOMEN: Soft. Bowel sounds are present. No masses. No tenderness. Peoples's catheter in place- being discharged home on a Peoples's catheter EXTREMITIES: No calf tenderness. Bilateral pitting edema on both sides to the knee joint. NEUROLOGICAL: Patient is awake, alert and oriented x3. No focal deficits DISCHARGE DIAGNOSIS Severe acute hypotension high possibility of adrenal insufficiency Hyponatremia Thrombocytopenia History of asthma Fibromyalgia Hypertension History of DJD History of rheumatoid arthritis History of sleep apnea Hypothyroidism History of tumor in the pituitary gland History of post polio syndrome History of articular regurgitation History of depression Hypoalbuminemia with mild protein calorie malnutrition Follow-up: The patient is advised to follow with her PCP Dr. Rajinder To, appointment provided. She is being discharged home on Peoples's catheter, follow up with Dr. Jack urology. CC to Dr.Aaron To. More than 35 minutes spent towards the discharge of the patient. Patient Condition at Discharge: Fair Plan - Discharge Summary New Discharge Prescriptions: New Hydrocortisone [Cortef] 10 mg PO BID 30 Days #60 tab Potassium Chloride ER [K-Dur 20] 20 meq PO DAILY 30 Days #30 tab.er.prt Furosemide [Lasix] 40 mg PO DAILY 30 Days #30 tab Phenazopyridine [Pyridium] 200 mg PO TID 30 Days #90 tab Continue Loperamide [Imodium] 4 mg PO DAILY PRN PRN Reason: Loose Stool Mesalamine [Lialda] 1.2 gm PO BID Levothyroxine Sodium [Synthroid] 88 mcg PO DAILY Acetaminophen [Tylenol Extra Strength] 500 mg PO DAILY PRN PRN Reason: Pain Omeprazole [PriLOSEC] 20 mg PO AC-BRKFST PRN PRN Reason: Dyspepsia allopurinoL [Zyloprim] 100 mg PO TID Pregabalin [Lyrica] 200 mg PO BID Ferrous Sulfate [Iron (65 MG Elemental)] 325 mg PO DAILY Fluticasone Nasal [place] [Flonase Nasal [place]] 2 spr EA NOSTRIL DAILY PRN PRN Reason: Allergy Symptoms Diphenox-Atrop 2.5-0.025 mg [Lomotil] 2 tab PO HS PRN PRN Reason: Constipation Keybiotics 1 tab PO DAILY HYDROcodone/APAP 5-325MG [[place] 5-325] 1 tab PO Q6HR PRN #12 tab PRN Reason: Pain Multivitamins, Thera [Multivitamin (formulary)] 1 tab PO DAILY Warfarin [Coumadin] 2 mg PO SUTUTH Warfarin [Coumadin] 3 mg PO MOWEFRSA Discontinued Metoprolol Tartrate [Lopressor] 25 mg PO TID Metoprolol Tartrate [Lopressor] 50 mg PO TID Discharge Medication List Levothyroxine Sodium [Synthroid] 88 mcg PO DAILY 04/08/14 [History] Loperamide [Imodium] 4 mg PO DAILY PRN 04/08/14 [History] Mesalamine [Lialda] 1.2 gm PO BID 04/08/14 [History] Acetaminophen [Tylenol Extra Strength] 500 mg PO DAILY PRN 08/01/18 [History] Omeprazole [PriLOSEC] 20 mg PO AC-BRKFST PRN 08/01/18 [History] allopurinoL [Zyloprim] 100 mg PO TID 08/01/18 [History] Pregabalin [Lyrica] 200 mg PO BID 08/08/18 [History] Diphenox-Atrop 2.5-0.025 mg [Lomotil] 2 tab PO HS PRN 11/08/19 [History] Ferrous Sulfate [Iron (65 MG Elemental)] 325 mg PO DAILY 11/08/19 [History] Fluticasone Nasal [place] [Flonase Nasal [place]] 2 spr EA NOSTRIL DAILY PRN 11/08/19 [History] Keybiotics 1 tab PO DAILY 11/08/19 [History] HYDROcodone/APAP 5-325MG [[place] 5-325] 1 tab PO Q6HR PRN #12 tab 04/24/20 [Rx] Multivitamins, Thera [Multivitamin (formulary)] 1 tab PO DAILY 04/28/20 [History] Warfarin [Coumadin] 2 mg PO SUTUTH 04/28/20 [History] Warfarin [Coumadin] 3 mg PO MOWEFRSA 04/28/20 [History] Furosemide [Lasix] 40 mg PO DAILY 30 Days #30 tab 05/05/20 [Rx] Hydrocortisone [Cortef] 10 mg PO BID 30 Days #60 tab 05/05/20 [Rx] Phenazopyridine [Pyridium] 200 mg PO TID 30 Days #90 tab 05/05/20 [Rx] Potassium Chloride ER [K-Dur 20] 20 meq PO DAILY 30 Days #30 tab.er.prt 05/05/20 [Rx] Follow up Appointment(s)/Referral(s): Johnny To MD [Primary Care Provider] - 05/09/20 1:30 pm Herb Jack MD [STAFF PHYSICIAN] - 05/13/20 9:40 am [facility], [NON-STAFF] - Patient Instructions/Handouts: Dehydration (DC), Urinary Tract Infection in Women (DC), Peoples Catheter Placement and Care (DC) Discharge Disposition: HOME WITH HOME HEALTH SERVICES
[2020-05-05] MEDS ORDERED: WARFARIN 3 MG TAB PO ONE (18:00)
[2020-05-06] MEDS ORDERED: FUROSEMIDE 40 MG TAB PO SCH (09:00)
[2020-05-06] MEDS ORDERED: allopurinoL 100 MG TAB PO SCH (09:00)
== END 2020-05-05 16:50 | disposition home health service (06) | DRG 643 ==
LOC: EC 12:02 → 5NMEDONC 13:56 → 2SICU 15:34 → 3SCARD 05-01 21:33
PROVIDERS: ADMIT Hospitalist; ATTEND Hospitalist
PROC: 02HV33Z Insertion of Infusion Device into Superior Vena Cava, Percutaneous Approach (ICD-10-PCS; principal; 2020-04-28)
DX: E27.40 Unspecified adrenocortical insufficiency (principal); N17.0 Acute kidney failure with tubular necrosis; E87.1 Hypo-osmolality and hyponatremia; E87.2 Acidosis; I48.20 Chronic atrial fibrillation, unspecified; K52.1 Toxic gastroenteritis and colitis; E44.1 Mild protein-calorie malnutrition; M19.90 Unspecified osteoarthritis, unspecified site; M06.9 Rheumatoid arthritis, unspecified; N18.3 Chronic kidney disease, stage 3 (moderate); I27.20 Pulmonary hypertension, unspecified; K59.00 Constipation, unspecified; I07.1 Rheumatic tricuspid insufficiency; G47.33 Obstructive sleep apnea (adult) (pediatric); G14 Postpolio syndrome; Z11.59 Encounter for screening for other viral diseases; E87.6 Hypokalemia; I35.1 Nonrheumatic aortic (valve) insufficiency; E03.9 Hypothyroidism, unspecified; F32.9 Major depressive disorder, single episode, unspecified; E11.22 Type 2 diabetes mellitus with diabetic chronic kidney disease; M79.7 Fibromyalgia; D69.6 Thrombocytopenia, unspecified; E86.0 Dehydration; E86.1 Hypovolemia; I12.9 Hypertensive chronic kidney disease with stage 1 through stage 4 chronic kidney disease, or unspecified chronic kidney disease; J45.909 Unspecified asthma, uncomplicated; N28.1 Cyst of kidney, acquired; N30.11 Interstitial cystitis (chronic) with hematuria; T36.95XA Adverse effect of unspecified systemic antibiotic, initial encounter; M81.0 Age-related osteoporosis without current pathological fracture; K80.20 Calculus of gallbladder without cholecystitis without obstruction; Z87.440 Personal history of urinary (tract) infections; Z90.49 Acquired absence of other specified parts of digestive tract; Z79.01 Long term (current) use of anticoagulants; Z79.899 Other long term (current) drug therapy; Z79.890 Hormone replacement therapy; Z88.5 Allergy status to narcotic agent; Z88.2 Allergy status to sulfonamides; Z88.8 Allergy status to other drugs, medicaments and biological substances; Z90.710 Acquired absence of both cervix and uterus; Z82.49 Family history of ischemic heart disease and other diseases of the circulatory system; Z98.890 Other specified postprocedural states; Z98.51 Tubal ligation status; Z80.9 Family history of malignant neoplasm, unspecified; Z88.6 Allergy status to analgesic agent; Z88.1 Allergy status to other antibiotic agents; Z68.32 Body mass index [BMI] 32.0-32.9, adult
CPT/HCPCS: 36415; 36556; 71046; 74176; 76770; 80048; 80053; 81001; 82024; 82533; 82550; 83036; 83605; 83735; 84100; 84132; 84145; 84439; 84443; 84484; 85025; 85379; 85610; 85730; 87040; 87086; 87324; 93005; 93306; 93308; 96361; 96374; 96375; 99291

== ENCOUNTER 2020-05-11 13:28 | Inpatient (IN) | payer MEDICARE ==
[2020-05-11] MEDS ORDERED: SODIUM CHLORIDE 0.9% 500 ML 500 ML IV STA (13:32)
[2020-05-11] MEDS ORDERED: SODIUM CHLORIDE 0.9% 1,000 ML IV STA ×2 (13:32)
--- NOTE | 2020-05-11 13:33 | ED ---
Weakness HPI - General Stated complaint: Syncope, Abd Pain, Diarrhea Time Seen by Provider: 05/11/20 13:31 Source: RN notes reviewed, old records reviewed - History of Present Illness Initial comments: This is a 74-year-old female Libra with a near syncopal event. Patient states she woke up not feeling well today, she went to go to the toilet use the bathroom history of diverticulitis and diarrhea but recent if she was admitted for states she began to urinate then became lightheaded dizzy diaphoretic and almost passed out. Sister was at bedside called ambulance and patient presents emergency department today. She states aside from not feeling well she feels much better than she did when she was passed out, multiple recent hospital admissions for different infections MD Complaint: generalized weakness (Near syncopal event) -: hour(s) Location: generalized Consistency: constant, other (Improved) Improves with: none Worsens with: none Context: recent illness, history of similar Associated Symptoms: denies other symptoms - Related Data Home Medications Medication Instructions Recorded Confirmed Levothyroxine Sodium [Synthroid] 88 mcg PO DAILY 04/08/14 04/28/20 Loperamide [Imodium] 4 mg PO DAILY PRN 04/08/14 04/28/20 Mesalamine [Lialda] 1.2 gm PO BID 04/08/14 04/28/20 Acetaminophen [Tylenol Extra 500 mg PO DAILY PRN 08/01/18 04/28/20 Strength] Omeprazole [PriLOSEC] 20 mg PO AC-BRKFST PRN 08/01/18 04/28/20 allopurinoL [Zyloprim] 100 mg PO TID 08/01/18 04/28/20 Pregabalin [Lyrica] 200 mg PO BID 08/08/18 04/28/20 Diphenox-Atrop 2.5-0.025 mg 2 tab PO HS PRN 11/08/19 04/28/20 [Lomotil] Ferrous Sulfate [Iron (65 MG 325 mg PO DAILY 11/08/19 04/28/20 Elemental)] Fluticasone Nasal [place] [Flonase 2 spr EA NOSTRIL DAILY PRN 11/08/19 04/28/20 Nasal [place]] Keybiotics 1 tab PO DAILY 11/08/19 04/28/20 Multivitamins, Thera [Multivitamin 1 tab PO DAILY 04/28/20 04/28/20 (formulary)] Warfarin [Coumadin] 2 mg PO SUTUTH 04/28/20 04/28/20 Warfarin [Coumadin] 3 mg PO MOWEFRSA 04/28/20 04/28/20 Previous Rx's Medication Instructions Recorded HYDROcodone/APAP 5-325MG [[place] 1 tab PO Q6HR PRN #12 tab 04/24/20 5-325] Furosemide [Lasix] 40 mg PO DAILY 30 Days #30 tab 05/05/20 Hydrocortisone [Cortef] 10 mg PO BID 30 Days #60 tab 05/05/20 Phenazopyridine [Pyridium] 200 mg PO TID 30 Days #90 tab 05/05/20 Potassium Chloride ER [K-Dur 20] 20 meq PO DAILY 30 Days #30 05/05/20 tab.er.prt Allergies Allergy/AdvReac Type Severity Reaction Status Date / Time nitrofurantoin Allergy Severe Rash/Hives Verified 04/28/20 14:03 [From Macrobid] nitrofurantoin Allergy Severe Rash/Hives Verified 04/28/20 14:03 macrocrystalline [From Macrobid] sulfamethoxazole Allergy Severe Rash/Hives Verified 04/28/20 14:03 [From Bactrim] trimethoprim [From Bactrim] Allergy Severe Rash/Hives Verified 04/28/20 14:03 hydromorphone HCl AdvReac Severe Nausea & Verified 04/28/20 14:03 [From Dilaudid] Vomiting Review of Systems ROS Statement: Those systems with pertinent positive or pertinent negative responses have been documented in the HPI. ROS Other: All systems not noted in ROS Statement are negative. 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 "Dr. Abdi Riggs fixed a hole in my heart". Cardioversion. L3-4 lumber laminectomy. Past Anesthesia/Blood Transfusion Reactions: Motion Sickness, Postoperative Nausea & Vomiting (PONV) Additional Past Anesthesia/Blood Transfusion Reaction / Comment(s): has letter from "lindsay packer dr with anesthesia recommendations" pt to bring with her. "takes long time to come out of anesthesia" Past Psychological History: Depression Smoking Status: Never smoker Past Alcohol Use History: Occasional Past Drug Use History: None Reported - Past Family History Father Family Medical History: Myocardial Infarction ([place]) Mother Family Medical History: Cancer Additional Family Medical History / Comment(s): Suspected. General Exam General appearance: alert, in no apparent distress Head exam: Present: atraumatic, normocephalic, normal inspection Eye exam: Present: normal appearance, PERRL, EOMI. Absent: scleral icterus, co njunctival injection, periorbital swelling ENT exam: Present: normal exam, mucous membranes moist Neck exam: Present: normal inspection. Absent: tenderness, meningismus, lymphadenopathy Respiratory exam: Present: normal lung sounds bilaterally. Absent: respiratory distress, wheezes, rales, rhonchi, stridor Cardiovascular Exam: Present: regular rate, normal rhythm, normal heart sounds. Absent: systolic murmur, diastolic murmur, rubs, gallop, clicks GI/Abdominal exam: Present: soft, normal bowel sounds. Absent: distended, tenderness, guarding, rebound, rigid Extremities exam: Present: normal inspection, full ROM, normal capillary refill. Absent: tenderness, pedal edema, joint swelling, calf tenderness Back exam: Present: normal inspection Neurological exam: Present: alert, oriented X3, CN II-XII intact Psychiatric exam: Present: normal affect, normal mood Skin exam: Present: warm, dry, intact, normal color. Absent: rash Course Vital Signs 05/11/20 05/11/20 05/11/20 13:36 13:39 14:39 Temperature 97.9 F Pulse Rate 96 93 Respiratory 18 18 16 Rate Blood Pressure 116/69 114/74 O2 Sat by Pulse 96 98 Oximetry - Reevaluation(s) Reevaluation #1: 05/11/20 13:47 medical record is reviewed Reevaluation #2: 05/11/20 15:31 Patient still remains feeling weak Reevaluation #3: 05/11/20 15:31 Patient informed of results, will admit and need to admit for observation EKG Findings - EKG Comments: EKG Findings:: EKG is A. fib 97 QRS 80 QTC 421 Medical Decision Making - Medical Decision Making 74 female Libra with a syncopal versus a near syncopal event. Troponin is mildly elevated weeks. Otherwise she is feeling weak and felt weak all day has significant episode diaphoresis coming in for observation regarding urinary findings - Lab Data Result diagrams: 05/11/20 13:58 05/11/20 13:58 Lab Results 05/11/20 05/11/20 05/11/20 Range/Units 13:58 13:58 13:58 WBC 10.8 H (3.8-10.6) k/uL RBC 3.54 L (3.80-5.40) m/uL Hgb 10.6 L (11.4-16.0) gm/dL Hct 36.4 (34.0-46.0) % MCV 102.9 H D (80.0-100.0) fL MCH 29.9 (25.0-35.0) pg MCHC 29.0 L (31.0-37.0) g/dL RDW 14.8 (11.5-15.5) % Plt Count 106 L (150-450) k/uL Neutrophils % 86 % Lymphocytes % 6 % Monocytes % 5 % Eosinophils % 1 % Basophils % 0 % Neutrophils # 9.2 H (1.3-7.7) k/uL Lymphocytes # 0.7 L (1.0-4.8) k/uL Monocytes # 0.5 (0-1.0) k/uL Eosinophils # 0.2 (0-0.7) k/uL Basophils # 0.0 (0-0.2) k/uL Hypochromasia Marked Macrocytosis Slight PT 16.3 H (9.0-12.0) sec INR 1.7 H (<1.2) APTT 25.7 (22.0-30.0) sec Sodium (137-145) mmol/L Potassium (3.5-5.1) mmol/L Chloride (98-107) mmol/L Carbon Dioxide (22-30) mmol/L Anion Gap mmol/L BUN (7-17) mg/dL Creatinine (0.52-1.04) mg/dL Est GFR (CKD-EPI)AfAm (>60 ml/min/1.73 sqM) Est GFR (CKD-EPI)NonAf (>60 ml/min/1.73 sqM) Glucose (74-99) mg/dL Plasma Lactic Acid Gabe (0.7-2.0) mmol/L Calcium (8.4-10.2) mg/dL Phosphorus (2.5-4.5) mg/dL Magnesium (1.6-2.3) mg/dL Total Bilirubin (0.2-1.3) mg/dL AST (14-36) U/L ALT (4-34) U/L Alkaline Phosphatase (38-126) U/L Creatine Kinase (30-135) U/L Troponin I (0.000-0.034) ng/mL Total Protein (6.3-8.2) g/dL Albumin (3.5-5.0) g/dL Urine Color Yellow Urine Appearance Clear (Clear) Urine pH 8.0 (5.0-8.0) Ur Specific [place] 1.005 (1.001-1.035) Urine Protein 2+ (Negative) Urine Glucose (UA) Negative (Negative) Urine Ketones Negative (Negative) Urine Blood Moderate (Negative) Urine Nitrite Positive H (Negative) Urine Bilirubin Negative (Negative) Urine Urobilinogen 8.0 (<2.0) mg/dL Ur Leukocyte Esterase Small (Negative) Urine RBC 122 H (0-5) /hpf Urine WBC 15 H (0-5) /hpf Ur Squamous Epith Cells 1 (0-4) /hpf Urine Bacteria Rare H (None) /hpf Hyaline Casts 4 H (0-2) /lpf Urine Mucus Rare H (None) /hpf Urine Yeast (Budding) Occasional H (None) /hpf 05/11/20 05/11/20 05/11/20 Range/Units 13:58 13:58 13:58 WBC (3.8-10.6) k/uL RBC (3.80-5.40) m/uL Hgb (11.4-16.0) gm/dL Hct (34.0-46.0) % MCV (80.0-100.0) fL MCH (25.0-35.0) pg MCHC (31.0-37.0) g/dL RDW (11.5-15.5) % Plt Count (150-450) k/uL Neutrophils % % Lymphocytes % % Monocytes % % Eosinophils % % Basophils % % Neutrophils # (1.3-7.7) k/uL Lymphocytes # (1.0-4.8) k/uL Monocytes # (0-1.0) k/uL Eosinophils # (0-0.7) k/uL Basophils # (0-0.2) k/uL Hypochromasia Macrocytosis PT (9.0-12.0) sec INR (<1.2) APTT (22.0-30.0) sec Sodium 134 L (137-145) mmol/L Potassium 3.8 (3.5-5.1) mmol/L Chloride 95 L (98-107) mmol/L Carbon Dioxide 34 H (22-30) mmol/L Anion Gap 5 mmol/L BUN 41 H (7-17) mg/dL Creatinine 2.09 H (0.52-1.04) mg/dL Est GFR (CKD-EPI)AfAm 26 (>60 ml/min/1.73 sqM) Est GFR (CKD-EPI)NonAf 23 (>60 ml/min/1.73 sqM) Glucose 162 H (74-99) mg/dL Plasma Lactic Acid Gabe 1.9 (0.7-2.0) mmol/L Calcium 8.2 L (8.4-10.2) mg/dL Phosphorus 2.7 (2.5-4.5) mg/dL Magnesium 1.7 (1.6-2.3) mg/dL Total Bilirubin 2.3 H (0.2-1.3) mg/dL AST 38 H (14-36) U/L ALT 11 (4-34) U/L Alkaline Phosphatase 84 (38-126) U/L Creatine Kinase 41 (30-135) U/L Troponin I 0.015 (0.000-0.034) ng/mL Total Protein 5.3 L (6.3-8.2) g/dL Albumin 3.1 L (3.5-5.0) g/dL Urine Color Urine Appearance (Clear) Urine pH (5.0-8.0) Ur Specific [place] (1.001-1.035) Urine Protein (Negative) Urine Glucose (UA) (Negative) Urine Ketones (Negative) Urine Blood (Negative) Urine Nitrite (Negative) Urine Bilirubin (Negative) Urine Urobilinogen (<2.0) mg/dL Ur Leukocyte Esterase (Negative) Urine RBC (0-5) /hpf Urine WBC (0-5) /hpf Ur Squamous Epith Cells (0-4) /hpf Urine Bacteria (None) /hpf Hyaline Casts (0-2) /lpf Urine Mucus (None) /hpf Urine Yeast (Budding) (None) /hpf Disposition Clinical Impression: Acute renal failure, Dehydration, Near syncope Disposition: ADMITTED IP TO THIS HOSP Condition: Fair Is patient prescribed a controlled substance at d/c from ED?: No Referrals: Johnny To MD [Primary Care Provider] - 1-2 days
[2020-05-11 14:34] LABS: Albumin 3.1 g/dL (3.5-5.0); Calcium 8.2 mg/dL (8.4-10.2); Total Bilirubin 2.3 mg/dL (0.2-1.3); Total Protein 5.3 g/dL (6.3-8.2)
[2020-05-11 14:35] LABS: Potassium 3.8 mmol/L (3.5-5.1)
[2020-05-11 14:36] LABS: INR 1.7 (<1.2); Magnesium 1.7 mg/dL (1.6-2.3); Partial Thromboplastin Time 25.7 sec (22.0-30.0); Phosphorus 2.7 mg/dL (2.5-4.5); Prothrombin Time 16.3 sec (9.0-12.0)
[2020-05-11 14:39] LABS: Bacteria,Urine Rare /hpf; Budding Yeast,Urine Occasional /hpf; Hyaline Casts,Urine 4 /lpf (0-2); Mucus,Urine Rare /hpf; RBC,Urine 122 /hpf (0-5); Squamous Epithelial Cell,Urine 1 /hpf (0-4); WBC,Urine 15 /hpf (0-5)
--- NOTE | 2020-05-11 14:49 | XR ---
EXAMINATION TYPE: XR chest 2V DATE OF EXAM: 05/11/2020 COMPARISON: 04/28/2020 HISTORY: Weakness TECHNIQUE: FINDINGS: There is some blunting of the left costophrenic angle. There is no heart failure. Heart is borderline enlarged. There are chest leads. IMPRESSION: There is some mild pleural reaction and atelectasis lateral left lung base that is increa sed compared to old exam. No heart failure.
[2020-05-11 14:57] LABS: Appearance,Urine Clear (Clear); Color,Urine Yellow; Specific Gravity,Urine 1.005 (1.001-1.035)
[2020-05-11 14:58] LABS: Bilirubin,Urine Negative (Negative); Glucose,Urine (UA) Negative (Negative); Ketones,Urine Negative (Negative); Protein,Urine 2+ (Negative)
[2020-05-11 14:59] LABS: Blood,Urine Moderate (Negative); Leukocyte Esterase,Urine Small (Negative); Nitrite,Urine Positive (Negative)
[2020-05-11 15:07] LABS: Basophils % (A) 0 %; Eosinophils # (A) 0.2 k/uL (0-0.7); Eosinophils % (A) 1 %; HCT 36.4 % (34.0-46.0); HGB 10.6 gm/dL (11.4-16.0); Hypochromasia Marked; Lymphocytes # (A) 0.7 k/uL (1.0-4.8); Lymphocytes % (A) 6 %; MCH 29.9 pg (25.0-35.0); Macrocytosis Slight; Monocytes # (A) 0.5 k/uL (0-1.0); Monocytes % (A) 5 %; Neutrophils # (A) 9.2 k/uL (1.3-7.7); Neutrophils % (A) 86 %; RBC 3.54 m/uL (3.80-5.40); RDW 14.8 % (11.5-15.5); WBC 10.8 k/uL (3.8-10.6)
[2020-05-11 15:09] LABS: MCV 102.9 fL (80.0-100.0)
[2020-05-11 15:30] LABS: Platelet Count 106 k/uL (150-450)
[2020-05-11] MEDS ORDERED: SODIUM CHLORIDE 0.9% 1,000 ML IV SCH (15:30)
[2020-05-11] MEDS ORDERED: WARFARIN 2 MG TAB PO SCH (17:00)
[2020-05-11] MEDS: SODIUM CHLORIDE 0.9% 1,000 ML IV SCH (18:38)
[2020-05-11] MEDS ORDERED: PANTOPRAZOLE 40 MG TABLET PO PRN (18:48)
[2020-05-11] MEDS ORDERED: Acetaminophen-Codeine 300-30mg TAB PO PRN (18:48)
[2020-05-11] MEDS ORDERED: LOPERAMIDE 2 MG CAP PO PRN (18:48)
[2020-05-11] MEDS ORDERED: FLUTICASONE 50MCG/SPRAY NASAL 16GM EA NOSTRIL PRN (18:48)
[2020-05-11] MEDS ORDERED: DIPHENOX-ATROP 2.5-0.025 MG 1 EACH TAB PO PRN (18:48)
[2020-05-11] MEDS: allopurinoL 100 MG TAB PO SCH (21:52)
[2020-05-11] MEDS: HYDROCORTISONE 10 MG TAB PO SCH (21:52)
[2020-05-11] MEDS: BALSALAZIDE DISODIUM 750 MG CAPSULE PO SCH (21:53)
[2020-05-11] MEDS: FLUDROCORTISONE 0.1 MG TAB PO SCH (21:53)
--- NOTE | 2020-05-12 01:40 | HP ---
HISTORY AND PHYSICAL DATE OF SERVICE: 05/11/2020 CHIEF COMPLAINTS: Syncope, abdominal pain, and diarrhea. HISTORY OF PRESENT ILLNESS: This 74-year-old woman with a past medical history of multiple medical problems including history of asthma, fibromyalgia, hypertension, DJD, rheumatoid arthritis, being followed by Dr. Johnny To in the outpatient setting was admitted recently with hypotension and the possibility of adrenal insufficiency was considered. The patient also has some diarrhea during that time and the patient improved significantly, patient went home. Currently the patient went to the toilet and the patient passed out and was taken to [facility] and admitted for further evaluation and treatment. The patient also complains of some diarrhea also. The patient had multiple abnormal findings including creatinine of 2.09. The patient also had a baseline chronic kidney disease, which worsened up to 4.82 and WBC was 10.8. There is no history of fever, rigors, chills. EKG showed atrial fibrillation with almost controlled ventricular rhythm at 97 beats per minute. PAST MEDICAL HISTORY: History of asthma, fibromyalgia, hypertension, rheumatoid arthritis, history of recent hypotension. MEDICATIONS: Home medications are: 1. Coumadin 3 mg. 2. Tylenol No.3. 3. Coumadin 2 mg daily. 4. Lyrica. 5. K-Dur. 6. Pyridium. 7. Prilosec. 8. Multivitamins. 9. Lialda. 10.Imodium. 11.Synthroid. 12.Cortef. 13.Lasix. 14.Flonase. 15.Iron sulfate. 16.Tylenol Extra Strength. ALLERGIES: MACROBID, BACTRIM, DILAUDID. FAMILY HISTORY: History of myocardial infarction suspected. SOCIAL HISTORY: No history of smoking. No history of alcohol intake. REVIEW OF SYSTEMS: ENT: Diminished hearing and diminished vision. CARDIOVASCULAR SYSTEM: As mentioned earlier. RESPIRATORY SYSTEM: No cough or hemoptysis. GI: As mentioned earlier. : No dysuria. NERVOUS SYSTEM: No numbness or weakness. ALLERGY/IMMUNOLOGY: No asthma or hay fever. MUSCULOSKELETAL: As mentioned earlier. HEMATOLOGY/ONCOLOGY: No history of anemia. ENDOCRINE: No history of diabetes. Hypothyroidism. CONSTITUTIONAL: As mentioned earlier. DERMATOLOGY: Negative. RHEUMATOLOGY: Negative. PSYCHIATRY: As mentioned earlier. PHYSICAL EXAMINATION: The patient is alert and oriented x3. Pulse 103, blood pressure 129/67, orthostatic changes present 109/81, respiration 14, temperature 98 degrees, pulse ox 94% on 2 L. HEENT: Conjunctivae normal. Oral mucosa moist. NECK: No jugular venous distention. No lymph node enlargement. CARDIOVASCULAR: S1, S2 muffled. RESPIRATORY: Breath sounds diminished at the bases. A few scattered rhonchi and crackles. ABDOMEN: Soft, nontender. No mass palpable. LEGS: No edema, no swelling. NERVOUS SYSTEM: Higher functions as mentioned. Moves all 4 limbs. No focal motor or sensory deficits. LYMPHATICS: No lymphadenopathy of the neck, axillae or groin. SKIN: No ulcer, rash or bleeding. JOINTS: No active deforming arthropathy. LABS: WBC 10.8, hemoglobin 10.6, sodium 134, creatinine is 2.09. Other labs are noted. ASSESSMENT: 1. Fall and syncope, possibly orthostatic hypotension. 2. Chronic kidney disease, stage 3. 3. Hyponatremia. 4. Increased WBC. 5. Anemia, macrocytic. 6. Thrombocytopenia. 7. Elevated bilirubin and elevated AST. 8. Hypoalbuminemia. 9. Hematuria. 10.History of asthma. 11.Fibromyalgia. 12.Hypertension. 13.History of degenerative joint disease. 14.History of recent renal failure. 15.History of rheumatoid arthritis. 16.History of suspected adrenal insufficiency. 17.History of sleep apnea. 18.History of obstructive sleep apnea. 19.History of intermittent bronchial asthma. 20.History of chronic atrial fibrillation. 21.Diabetes mellitus type 2. 22.History of obesity. 23.History of left tibial plateau fracture. 24.History inflammatory bowel disorder. 25.History of post-polio syndrome. 26.History of degenerative joint disease. 27.History of fibromyalgia. 28.History of hypothyroidism. 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 30.History of cholecystectomy. 31.History of hysterectomy. 32.History of cardioversion. 33.L3-4 lumbar laminectomy. 34.History of depression. RECOMMENDATIONS AND DISCUSSION: This 74-year-old woman who presented with multiple complex medical issues, we will monitor the patient closely. Continue the current medications, continue symptomatic treatment. Will initiate IV fluids. Resume the home medications. Orthostatic vitals. Otherwise I would recommend Florinef and continue to monitor. Otherwise would also recommend nephrology evaluation as well. Prognosis guarded because of multiple complex medical issues. Further recommendations to follow. A copy forwarded to Dr. Johnny To who is the primary physician. PT, OT evaluation, ECF rehab. Consider ECF rehab if the patient is debilitated. MMODL / IJN: [id number] /
[2020-05-12] MEDS: HYDROCORTISONE 10 MG TAB PO SCH ×2 (06:53→17:04)
[2020-05-12] MEDS: LEVOTHYROXINE 88 MCG TAB PO SCH (06:53)
[2020-05-12 08:24] LABS: Basophils % (A) 0 %; Eosinophils # (A) 0.1 k/uL (0-0.7); Eosinophils % (A) 1 %; HCT 34.3 % (34.0-46.0); Hypochromasia Marked; Lymphocytes # (A) 1.2 k/uL (1.0-4.8); Lymphocytes % (A) 9 %; MCH 30.3 pg (25.0-35.0); MCHC 29.3 g/dL (31.0-37.0); MCV 103.4 fL (80.0-100.0); Macrocytosis Slight; Mean Platelet Volume 12.3; Monocytes # (A) 0.4 k/uL (0-1.0); Monocytes % (A) 3 %; Neutrophils # (A) 11.6 k/uL (1.3-7.7); Neutrophils % (A) 85 %; Platelet Count 113 k/uL (150-450); RBC 3.32 m/uL (3.80-5.40); RDW 14.7 % (11.5-15.5); WBC 13.5 k/uL (3.8-10.6)
[2020-05-12 08:32] LABS: Calcium 7.5 mg/dL (8.4-10.2); Potassium 3.9 mmol/L (3.5-5.1)
[2020-05-12 08:35] LABS: INR 2.1 (<1.2); Prothrombin Time 20.7 sec (9.0-12.0)
--- NOTE | 2020-05-12 08:57 | P.CRDCN ---
History of Present Illness Consult date: 05/12/20 Chief complaint: Syncope History of present illness: This is a very pleasant 74-year-old female patient who follows Dr. Riggs in the office on regular basis with a past medical history significant for long- standing persistent atrial fibrillation on oral anticoagulation was Coumadin as well as chronic kidney disease and also multiple comorbid conditions was brought to the emergency department was near syncope. The patient has been struggling with what it seems to be colitis and yesterday she was experiencing abdominal discomfort when she felt that she went to go to the bathroom. While she was sitting on the toilet she felt nauseated and also she vomited. Subsequently she did have an episode of presyncope was witnessed by her sister. Then the patient was brought to the emergency department. No symptoms of chest pain or chest discomfort or shortness of breath or any feeling of heart racing or fluttering. During her hospital stay and for the last several hours she was experiencing rectal bleeding. Currently general surgery is on the case and the patient is in process to be seen. The patient does have long-standing persistent atrial fibrillation and she is currently maintaining oral anticoagulation was Coumadin which I am going to hold at this point. When she presented to the hospital INR was not that elevated. The EKG showed atrial fibrillation was controlled heart rate. The INR this morning is 2.1. The hemoglobin is stent. The creatinine is 2.1. The chest x-ray did not show any acute abnormalities. Please note that the pressure has been marginal and the patient has been receiving Lasix is 40 mg by mouth daily which I am going to decrease to 20 mg by mouth daily. Beside that I am going to stop the aspirin and also hold the Coumadin. 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 "Dr. Abdi Riggs fixed a hole in my heart". Cardioversion. L3-4 lumb er laminectomy. per pt she is to have a bowel resection on 05/21/20 Past Anesthesia/Blood Transfusion Reactions: Motion Sickness, Postoperative Nausea & Vomiting (PONV) Additional Past Anesthesia/Blood Transfusion Reaction / Comment(s): has letter from "lindsay packer dr with anesthesia recommendations" pt to bring with her. "takes long time to come out of anesthesia" Past Psychological History: Depression Smoking Status: Never smoker Past Alcohol Use History: Occasional Past Drug Use History: None Reported - Past Family History Father Family Medical History: Myocardial Infarction ([place]) Mother Family Medical History: Cancer Additional Family Medical History / Comment(s): Suspected. Medications and Allergies Home Medications Medication Instructions Recorded Confirmed Type Levothyroxine Sodium [Synthroid] 88 mcg PO DAILY 04/08/14 05/11/20 History Loperamide [Imodium] 4 mg PO DAILY PRN 04/08/14 05/11/20 History Mesalamine [Lialda] 1.2 gm PO BID 04/08/14 05/11/20 History Acetaminophen [Tylenol Extra 500 mg PO DAILY PRN 08/01/18 05/11/20 History Strength] Omeprazole [PriLOSEC] 20 mg PO AC-BRKFST PRN 08/01/18 05/11/20 History allopurinoL [Zyloprim] 100 mg PO TID 08/01/18 05/11/20 History Pregabalin [Lyrica] 200 mg PO BID 08/08/18 05/11/20 History Diphenox-Atrop 2.5-0.025 mg 2 tab PO TID-W/MEALS PRN 11/08/19 05/11/20 History [Lomotil] Ferrous Sulfate [Iron (65 MG 325 mg PO DAILY 11/08/19 05/11/20 History Elemental)] Fluticasone Nasal Paulina [Flonase 2 spr EA NOSTRIL DAILY PRN 11/08/19 05/11/20 History Nasal Paulina] Keybiotics 1 tab PO DAILY 11/08/19 05/11/20 History Multivitamins, Thera [Multivitamin 1 tab PO DAILY 04/28/20 05/11/20 History (formulary)] Warfarin [Coumadin] 2 mg PO DAILY 04/28/20 05/11/20 History Warfarin [Coumadin] 3 mg PO DIRECTED 04/28/20 05/11/20 History Furosemide [Lasix] 40 mg PO DAILY 30 Days #30 tab 05/05/20 05/11/20 Rx Hydrocortisone [Cortef] 10 mg PO BID 30 Days #60 tab 05/05/20 05/11/20 Rx Phenazopyridine [Pyridium] 200 mg PO TID 30 Days #90 tab 05/05/20 05/11/20 Rx Potassium Chloride ER [K-Dur 20] 20 meq PO DAILY 30 Days #30 05/05/20 05/11/20 Rx tab.er.prt Acetaminophen-Codeine 300-30mg 1 - 2 tab PO Q4H PRN 05/11/20 05/11/20 History [Tylenol w/codeine #3] Allergies Allergy/AdvReac Type Severity Reaction Status Date / Time nitrofurantoin Allergy Severe Rash/Hives Verified 05/11/20 15:48 [From Macrobid] nitrofurantoin Allergy Severe Rash/Hives Verified 05/11/20 15:48 macrocrystalline [From Macrobid] sulfamethoxazole Allergy Severe Rash/Hives Verified 05/11/20 15:48 [From Bactrim] trimethoprim [From Bactrim] Allergy Severe Rash/Hives Verified 05/11/20 15:48 hydromorphone HCl AdvReac Severe Nausea & Verified 05/11/20 15:48 [From Dilaudid] Vomiting Physical Exam Vitals: Vital Signs Temp Pulse Pulse Pulse Resp BP BP 05/12/20 03:00 98.4 F 106 H 16 05/11/20 21:00 97.7 F 105 H 16 05/11/20 18:18 05/11/20 16:59 103 H 14 05/11/20 16:25 98.0 F 103 H 14 105/64 05/11/20 15:55 97.9 F 93 16 114/74 05/11/20 14:39 93 16 114/74 05/11/20 13:39 18 05/11/20 13:36 97.9 F 96 18 116/69 BP BP BP Pulse Ox 05/12/20 03:00 107/50 97 05/11/20 21:00 112/71 92 L 05/11/20 18:18 129/67 109/81 123/71 05/11/20 16:59 05/11/20 16:25 92 L 05/11/20 15:55 98 05/11/20 14:39 98 05/11/20 13:39 05/11/20 13:36 96 Intake and Output 05/11/20 05/12/20 05/12/20 22:59 06:59 14:59 Intake Total 480 Output Total 2650 1400 Balance -2170 -1400 Intake: Oral 480 Output: Urine 2650 1400 Uretheral (Peoples) 250 Other: Voiding Method Indwelling Catheter Indwelling Catheter # Bowel Movements 4 Weight 83.915 kg - Respiratory Respiratory: bilateral: diminished - Cardiovascular Rhythm: irregularly irregular Heart sounds: normal: S1, S2 Results 05/12/20 07:34 05/12/20 07:34 Cardiac Enzymes 05/11/20 05/11/20 05/11/20 Range/Units 13:58 13:58 16:44 AST 38 H (14-36) U/L Troponin I 0.015 <0.012 (0.000-0.034) ng/mL 05/11/20 Range/Units 21:18 AST (14-36) U/L Troponin I 0.018 (0.000-0.034) ng/mL Coagulation 05/11/20 05/12/20 Range/Units 13:58 07:34 PT 16.3 H 20.7 H (9.0-12.0) sec APTT 25.7 (22.0-30.0) sec Lipids 05/12/20 Range/Units 07:34 Triglycerides 184 H (<150) mg/dL Cholesterol 142 (<200) mg/dL HDL Cholesterol 31 L (40-60) mg/dL CBC 05/11/20 05/12/20 Range/Units 13:58 07:34 WBC 10.8 H 13.5 H (3.8-10.6) k/uL RBC 3.54 L 3.32 L (3.80-5.40) m/uL Hgb 10.6 L 10.0 L (11.4-16.0) gm/dL Hct 36.4 34.3 (34.0-46.0) % Plt Count 106 L 113 L (150-450) k/uL Comprehensive Metabolic Panel 05/11/20 05/12/20 Range/Units 13:58 07:34 Sodium 134 L 139 (137-145) mmol/L Potassium 3.8 3.9 (3.5-5.1) mmol/L Chloride 95 L 98 (98-107) mmol/L Carbon Dioxide 34 H 38 H (22-30) mmol/L BUN 41 H 33 H (7-17) mg/dL Creatinine 2.09 H 2.01 H (0.52-1.04) mg/dL Glucose 162 H 158 H (74-99) mg/dL Calcium 8.2 L 7.5 L (8.4-10.2) mg/dL AST 38 H (14-36) U/L ALT 11 (4-34) U/L Alkaline Phosphatase 84 (38-126) U/L Total Protein 5.3 L (6.3-8.2) g/dL Albumin 3.1 L (3.5-5.0) g/dL Current Medications Generic Name Dose Route Start Last Admin Trade Name Freq PRN Reason Stop Dose Admin Acetaminophen 500 mg 05/11/20 18:48 Tylenol Tab PO DAILY PRN Mild Pain Acetaminophen/Codeine Phosphate 1 each 05/11/20 18:48 Tylenol #3 PO Q4H PRN Moderate Pain Allopurinol 100 mg 05/11/20 22:00 05/11/20 21:52 Zyloprim PO 100 mg TID [facility] Administration Aspirin 325 mg 05/12/20 09:00 Aspirin PO DAILY [facility] Balsalazide 2,250 mg 05/11/20 21:00 05/11/20 21:53 Colazal PO 2,250 mg BID [facility] Administration Diphenoxylate HCl/Atropine 2 each 05/11/20 18:48 Lomotil PO TID-W/MEALS PRN Constipation Ferrous Sulfate 325 mg 05/12/20 09:00 Feosol PO DAILY [facility] Fludrocortisone Acetate 0.1 mg 05/11/20 21:00 05/11/20 21:53 Florinef PO 0.1 mg BID [facility] Administration Fluticasone Propionate 2 spray 05/11/20 18:48 Flonase Nasal Paulina EA NOSTRIL DAILY PRN Allergy Symptoms Furosemide 40 mg 05/12/20 09:00 Lasix PO DAILY [facility] Hydrocortisone 10 mg 05/11/20 21:00 05/12/20 06:53 Cortef PO 10 mg BID-W/MEALS [facility] Administration Sodium Chloride 1,000 mls @ 75 mls/hr 05/11/20 18:45 05/11/20 18:38 Saline 0.9% IV 75 mls/hr .[id number] [facility] Administration Levothyroxine Sodium 88 mcg 05/12/20 06:00 05/12/20 06:53 Synthroid PO 88 mcg DAILY@0600 [facility] Administration Loperamide HCl 4 mg 05/11/20 18:48 Imodium PO DAILY PRN Loose Stool Multivitamins 1 each 05/12/20 09:00 Theragran PO DAILY [facility] Pantoprazole Sodium 40 mg 05/11/20 18:48 Protonix PO AC-BRKFST PRN Dyspepsia Potassium Chloride 20 meq 05/12/20 09:00 K-Dur 20 PO DAILY [facility] Warfarin Sodium 2 mg 05/11/20 17:00 05/11/20 21:52 Coumadin PO 2 mg DAILY@1700 [facility] Administration Protocol Intake and Output 05/11/20 05/12/20 05/12/20 22:59 06:59 14:59 Intake Total 480 Output Total 2650 1400 Balance -2170 -1400 Intake: Oral 480 Output: Urine 2650 1400 Uretheral (Peoples) 250 Other: Voiding Method Indwelling Catheter Indwelling Catheter # Bowel Movements 4 Weight 83.915 kg 05/12/20 07:34 05/12/20 07:34 Assessment and Plan Assessment: Assessment #1 gastrointestinal bleeding of unknown etiology at this point #2 anemia probably related to blood loss #3 long-standing persistent atrial fibrillation on oral anticoagulation was, the #4 margin the low blood pressure #5 chronic kidney disease Plan #1 stop the aspirin #2 hold the Coumadin for now #3 decrease the dose of Lasix in view of the margin the low blood pressure #4 follow-up with the gastro-intestinal/surgical consult
[2020-05-12] MEDS ORDERED: FUROSEMIDE 40 MG TAB PO SCH (09:00)
[2020-05-12] MEDS ORDERED: ASPIRIN 325 MG TAB PO SCH (09:00)
[2020-05-12 09:08] LABS: Anisocytosis (M) Present; Poikilocytosis (M) Present; Stomatocytes Present
[2020-05-12] MEDS: FERROUS SULFATE 325 MG TAB PO SCH (09:41)
[2020-05-12] MEDS: MULTIVITAMINS, THERA 1 EACH TAB PO SCH (09:41)
[2020-05-12] MEDS: POTASSIUM CHLORIDE ER 20 MEQ TAB.ER PO SCH (09:41)
[2020-05-12] MEDS: BALSALAZIDE DISODIUM 750 MG CAPSULE PO SCH ×2 (09:41→21:27)
[2020-05-12] MEDS: FLUDROCORTISONE 0.1 MG TAB PO SCH ×2 (09:41→21:27)
[2020-05-12] MEDS: FUROSEMIDE 20 MG TAB PO SCH (09:41)
[2020-05-12] MEDS: allopurinoL 100 MG TAB PO SCH ×3 (09:44→21:27)
[2020-05-12] MEDS: SODIUM CHLORIDE 0.9% 1,000 ML IV SCH ×2 (09:46→21:27)
--- NOTE | 2020-05-12 13:10 | PN ---
PROGRESS NOTE DATE OF SERVICE: 05/12/2020 This 74-year-old woman was admitted with syncope, abdominal pain, diarrhea, also had GI bleed at this time. The hemoglobin was dropped to around 10 from the previous slightly higher levels. Cardiology following the patient closely. Gastroenterology and surgery consultation in progress also. There is no history of abdominal pain. No history of fever, rigors or chills. Past medical history reviewed. REVIEW OF SYSTEMS: CARDIOVASCULAR SYSTEM: No angina or palpations. RESPIRATION as mentioned earlier. GI: As mentioned earlier. no dysuria. NERVOUS SYSTEM: Mild diffuse weakness. CURRENT MEDICATIONS: Reviewed and include: 1. Tylenol p.r.n. 2. Tylenol #3. 3. Zyloprim. 4. . 5. Lomotil. 6. Iron sulfate. 7. Florinef 0.1 b.i.d. 8. Lasix. 9. Cortef 10 mg b.i.d. 10.Synthroid. 11.Imodium. 12.Multivitamins. 13.Protonix. 14.K-Dur. PHYSICAL EXAM: Patient is alert, oriented times three. Pulse is 113, blood pressure 118/77, respiration 16, temp 98.5, pulse ox 94% on 3 L. HEENT: Conjunctivae normal. NECK: No JVD. CARDIOVASCULAR: S1, S2 muffled. RESPIRATORY: Breath sounds diminished in the bases. Bilateral scattered rhonchi and crackles. ABDOMEN: Soft. Mild diffuse discomfort. No mass palpable. LEGS: No edema. No swelling. NERVOUS SYSTEM: Higher functions as mentioned. Moves all four limbs. No focal deficits. SKIN: No ulcer, no rash. No bleeding. JOINTS: No active deforming arthropathy. LABS: WBC 13.5, hemoglobin is 10. INR is 2.1. Sodium 139, potassium 3.9 and creatinine is 2.01 and triglycerides 184. ASSESSMENT: 1. Fall and syncope, possible orthostatic hypotension. 2. Chronic kidney disease stage III. 3. Gastrointestinal bleed, possibly colitis exacerbation. 4. Hyponatremia. 5. Increased WBC. 6. Anemia macrocytic. 7. Thrombocytopenia. 8. Elevated bilirubin, elevated AST. 9. Hypoalbuminemia. 10.Hematuria. 11.History of asthma. 12.Fibromyalgia.. 13.Hypertension. 14.History of degenerative joint disease. 15.History of recent renal failure. 16.History of rheumatoid arthritis. 17.History of suspected renal insufficiency. 18.Sleep apnea. 19.History of obstructive sleep apnea. 20.History of intermittent bronchial asthma. 21.History of chronic atrial fibrillation. 22.Diabetes mellitus type 2. 23.History of obesity. 24.History of left tibial plateau fracture. 25.History of inflammatory bowel disorder. 26.History of post-polio syndrome. 27.History of degenerative joint disease. 28.History of fibromyalgia. 29.History of hypothyroidism. 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 31.History of cholecystectomy. 32.Hysterectomy. 33.History of cardioversion. 34.L3-4 lumbar laminectomy. 35.History of depression. 36.FULL CODE. RECOMMENDATIONS AND DISCUSSION: This 74-year-old woman who presented with multiple complex medical issues, we will monitor the patient closely, continue the current medications. Symptomatic treatment. Recommend GI consultation and monitor hemoglobin closely. Otherwise, creatinine is 2.0, elevated. Continue the rest of medications. The blood pressure has slightly improved. Patient still continues to be tachycardia. Prognosis extremely guarded because of multiple complex medical issues. Further recommendations to follow. MMODL / IJN: [id number] /
[2020-05-12 13:28] LABS: Glucose,Whole Blood 188 mg/dL (75-99)
--- NOTE | 2020-05-12 14:52 | P.GSCN ---
History of Present Illness Consult date: 05/12/20 History of present illness: CHIEF COMPLAINT: Syncope and blood in stool HISTORY OF PRESENT ILLNESS: A 74-year-old female with a known history of coronary diverticulitis, asthma, hypertension, 5 mg, rheumatoid arthritis, chronic atrial fibrillation anticoagulated with Coumadin, chronic kidney disease, possible adrenal insufficiency, cholecystectomy and hernia repair. She also has a history of a rectal prolapse that was diagnosed in July 2019. Patient presented to the emergency room after passing out at home. Patient reports that she went to the use the toilet and had passed out. Having some abdominal cramping and blood was present in her stools. She did have a liquidy bloody bowel movements this morning. Cardiology has discontinued her Coumadin and aspirin. We have been consulted for patient's abdominal pain. Patient denies any fever, chills, sweats. Medicine is also elevated Florinef for possible orthostatic hypotension PAST MEDICAL HISTORY: See list. PAST SURGICAL HISTORY: See list. MEDICATIONS: See list. ALLERGIES: See list. SOCIAL HISTORY: No illicit drug use. REVIEW OF SYSTEMS: CONSTITUTIONAL: Denies fever or chills. HEENT: Denies blurred vision, vision changes, or eye pain. Denies hemoptysis CARDIOVASCULAR: Denies chest pain or pressure. RESPIRATORY: No shortness of breath. GASTROINTESTINAL: See HPI for pertinent findings HEMATOLOGIC: Denies bleeding disorders. GENITOURINARY: Denies any blood in urine or increased urinary frequency. SKIN: Denies pruitis. Denies rash. PHYSICAL EXAM: VITAL SIGNS: Reviewed GENERAL: Well-developed in no acute distress. HEENT: No sclera icterus. Extraocular movements grossly intact. Moist buccal mucosa. Head is atraumatic, normocephalic. No nasal drainage. ABDOMEN: Soft. Nondistended. Nontender. No evidence of rectal prolapse on exam. NEUROLOGIC: Alert and oriented. Cranial nerves II through XII grossly intact. LABORATORY DATA: WBC 10.8 hemoglobin 10 platelets. INR 1.7 creatinine is 2.09 total bili 2.3 AST 38 ASSESSMENT: 1. Acute lower GI bleed possibly secondary to diverticular bleed or from a rectal prolapse 2. Fall with syncope possibly related to orthostatic hypotension 3. History of chronic atrial fibrillation PLAN: -agree with discontinuing Coumadin and aspirin -Start patient on a clear liquid diet -Continue monitor hemoglobin -Patient does have a bowel resection surgery for diverticular disease scheduled next week May [address] Lowery Physician Entry Level Management note has been reviewed by physician. Signing provider agrees with the documented findings, assessment, and plan of care. 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 "Dr. Abdi Riggs fixed a hole in my heart". Cardioversion. L3-4 lumber laminectomy. per pt she is to have a bowel resection on 05/21/20 Past Anesthesia/Blood Transfusion Reactions: Motion Sickness, Postoperative Nausea & Vomiting (PONV) Additional Past Anesthesia/Blood Transfusion Reaction / Comm: has letter from "post polio dr with anesthesia recommendations" pt to bring with her. "takes lo ng time to come out of anesthesia" Past Psychological History: Depression Smoking Status: Never smoker Past Alcohol Use History: Occasional Past Drug Use History: None Reported - Past Family History Father Family Medical History: Myocardial Infarction ([place]) Mother Family Medical History: Cancer Additional Family Medical History / Comment(s): Suspected. Medications and Allergies Home Medications Medication Instructions Recorded Confirmed Type Levothyroxine Sodium [Synthroid] 88 mcg PO DAILY 04/08/14 05/11/20 History Loperamide [Imodium] 4 mg PO DAILY PRN 04/08/14 05/11/20 History Mesalamine [Lialda] 1.2 gm PO BID 04/08/14 05/11/20 History Acetaminophen [Tylenol Extra 500 mg PO DAILY PRN 08/01/18 05/11/20 History Strength] Omeprazole [PriLOSEC] 20 mg PO AC-BRKFST PRN 08/01/18 05/11/20 History allopurinoL [Zyloprim] 100 mg PO TID 08/01/18 05/11/20 History Pregabalin [Lyrica] 200 mg PO BID 08/08/18 05/11/20 History Diphenox-Atrop 2.5-0.025 mg 2 tab PO TID-W/MEALS PRN 11/08/19 05/11/20 History [Lomotil] Ferrous Sulfate [Iron (65 MG 325 mg PO DAILY 11/08/19 05/11/20 History Elemental)] Fluticasone Nasal Pep [Flonase 2 spr EA NOSTRIL DAILY PRN 11/08/19 05/11/20 History Nasal Pep] Keybiotics 1 tab PO DAILY 11/08/19 05/11/20 History Multivitamins, Thera [Multivitamin 1 tab PO DAILY 04/28/20 05/11/20 History (formulary)] Warfarin [Coumadin] 2 mg PO DAILY 04/28/20 05/11/20 History Warfarin [Coumadin] 3 mg PO DIRECTED 04/28/20 05/11/20 History Furosemide [Lasix] 40 mg PO DAILY 30 Days #30 tab 05/05/20 05/11/20 Rx Hydrocortisone [Cortef] 10 mg PO BID 30 Days #60 tab 05/05/20 05/11/20 Rx Phenazopyridine [Pyridium] 200 mg PO TID 30 Days #90 tab 05/05/20 05/11/20 Rx Potassium Chloride ER [K-Dur 20] 20 meq PO DAILY 30 Days #30 05/05/20 05/11/20 Rx tab.er.prt Acetaminophen-Codeine 300-30mg 1 - 2 tab PO Q4H PRN 05/11/20 05/11/20 History [Tylenol w/codeine #3] Allergies Allergy/AdvReac Type Severity Reaction Status Date / Time nitrofurantoin Allergy Severe Rash/Hives Verified 05/11/20 15:48 [From Macrobid] nitrofurantoin Allergy Severe Rash/Hives Verified 05/11/20 15:48 macrocrystalline [From Macrobid] sulfamethoxazole Allergy Severe Rash/Hives Verified 05/11/20 15:48 [From Bactrim] trimethoprim [From Bactrim] Allergy Severe Rash/Hives Verified 05/11/20 15:48 hydromorphone HCl AdvReac Severe Nausea & Verified 05/11/20 15:48 [From Dilaudid] Vomiting Surgical - Exam Vital Signs Temp Pulse Resp BP Pulse Ox 97.9 F 96 18 116/69 96 05/11/20 13:36 05/11/20 13:36 05/11/20 13:36 05/11/20 13:36 05/11/20 13:36 Results - Labs 05/12/20 07:34 05/12/20 07:34 Abnormal Lab Results - Last 24 Hours (Table) 05/11/20 05/11/20 05/12/20 Range/Units 13:58 13:58 07:34 WBC 10.8 H (3.8-10.6) k/uL RBC 3.54 L (3.80-5.40) m/uL Hgb 10.6 L (11.4-16.0) gm/dL MCV 102.9 H D (80.0-100.0) fL MCHC 29.0 L (31.0-37.0) g/dL Plt Count 106 L (150-450) k/uL Neutrophils # 9.2 H (1.3-7.7) k/uL Lymphocytes # 0.7 L (1.0-4.8) k/uL PT (9.0-12.0) sec INR (<1.2) Carbon Dioxide 38 H (22-30) mmol/L BUN 33 H (7-17) mg/dL Creatinine 2.01 H (0.52-1.04) mg/dL Glucose 158 H (74-99) mg/dL POC Glucose (mg/dL) (75-99) mg/dL Calcium 7.5 L (8.4-10.2) mg/dL Triglycerides 184 H (<150) mg/dL HDL Cholesterol 31 L (40-60) mg/dL Urine Nitrite Positive H (Negative) Urine RBC 122 H (0-5) /hpf Urine WBC 15 H (0-5) /hpf Urine Bacteria Rare H (None) /hpf Hyaline Casts 4 H (0-2) /lpf Urine Mucus Rare H (None) /hpf Urine Yeast (Budding) Occasional H (None) /hpf 05/12/20 05/12/20 05/12/20 Range/Units 07:34 07:34 13:26 WBC 13.5 H (3.8-10.6) k/uL RBC 3.32 L (3.80-5.40) m/uL Hgb 10.0 L (11.4-16.0) gm/dL MCV 103.4 H (80.0-100.0) fL MCHC 29.3 L (31.0-37.0) g/dL Plt Count 113 L (150-450) k/uL Neutrophils # 11.6 H (1.3-7.7) k/uL Lymphocytes # (1.0-4.8) k/uL PT 20.7 H (9.0-12.0) sec INR 2.1 H (<1.2) Carbon Dioxide (22-30) mmol/L BUN (7-17) mg/dL Creatinine (0.52-1.04) mg/dL Glucose (74-99) mg/dL POC Glucose (mg/dL) 188 H (75-99) mg/dL Calcium (8.4-10.2) mg/dL Triglycerides (<150) mg/dL HDL Cholesterol (40-60) mg/dL Urine Nitrite (Negative) Urine RBC (0-5) /hpf Urine WBC (0-5) /hpf Urine Bacteria (None) /hpf Hyaline Casts (0-2) /lpf Urine Mucus (None) /hpf Urine Yeast (Budding) (None) /hpf Microbiology - Last 24 Hours (Table) 05/11/20 13:58 Urine Culture - Preliminary Urine,Voided Diabetes panel 05/12/20 Range/Units 07:34 Sodium 139 (137-145) mmol/L Potassium 3.9 (3.5-5.1) mmol/L Chloride 98 (98-107) mmol/L Carbon Dioxide 38 H (22-30) mmol/L BUN 33 H (7-17) mg/dL Creatinine 2.01 H (0.52-1.04) mg/dL Glucose 158 H (74-99) mg/dL Calcium 7.5 L (8.4-10.2) mg/dL Triglycerides 184 H (<150) mg/dL HDL Cholesterol 31 L (40-60) mg/dL Calcium panel 05/12/20 Range/Units 07:34 Calcium 7.5 L (8.4-10.2) mg/dL Pituitary panel 05/12/20 Range/Units 07:34 Sodium 139 (137-145) mmol/L Potassium 3.9 (3.5-5.1) mmol/L Chloride 98 (98-107) mmol/L Carbon Dioxide 38 H (22-30) mmol/L BUN 33 H (7-17) mg/dL Creatinine 2.01 H (0.52-1.04) mg/dL Glucose 158 H (74-99) mg/dL Calcium 7.5 L (8.4-10.2) mg/dL Adrenal panel 05/12/20 Range/Units 07:34 Sodium 139 (137-145) mmol/L Potassium 3.9 (3.5-5.1) mmol/L Chloride 98 (98-107) mmol/L Carbon Dioxide 38 H (22-30) mmol/L BUN 33 H (7-17) mg/dL Creatinine 2.01 H (0.52-1.04) mg/dL Glucose 158 H (74-99) mg/dL Calcium 7.5 L (8.4-10.2) mg/dL
--- NOTE | 2020-05-12 16:09 | CT ---
EXAMINATION TYPE: CT abdomen pelvis wo con DATE OF EXAM: 05/12/2020 COMPARISON: April 30, 2020 HISTORY: Rectal bleeding. CT DLP: 831.3 mGycm Examination of the solid and hollow viscera is limited given the lack of contrast. FINDINGS: LUNG BASES: No evidence for nodule. No evidence for infiltrate. LIVER/GB: The gallbladder is unremarkable. No space-occupying hepatic lesion. PANCREAS: No pancreatic mass identified. No inflammatory process seen. SPLEEN: No evidence for splenomegaly. No intrasplenic lesions seen. ADRENALS: No adrenal nodules identified. No evidence for thickening. KIDNEYS: No evidence for renal mass. No nephrolithiasis. No hydronephrosis. BOWEL: Appendix has a normal appearance. No evidence of bowel obstruction. Fixed hiatal hernia noted. There is wall thickening noted to involve the distal transverse colon and splenic flexure which may reflect colitis of nonspecific type with differential diagnostic possibilities including infection, i nflammatory and ischemic processes. Sigmoid diverticulosis without diverticulitis. Lymph nodes: No evidence for adenopathy greater than 1 cm. Abdominal aorta: Atheromatous changes seen. No evidence for aneurysm. Genital organs: No significant abnormality. Other: No significant abnormality. IMPRESSION: 1. Nonspecific colitis as discussed above.
--- NOTE | 2020-05-12 22:23 | CONS ---
CONSULTATION DATE OF DICTATION: 05/12/2020 REASON FOR CONSULTATION: Abdominal pain and rectal bleeding. HISTORY OF PRESENT ILLNESS: The patient is a 74-year-old pleasant white female known to me from her prior office visits. She has a history of hypertension, rheumatoid arthritis, hyperlipidemia and fibromyalgia as well as collagenous colitis. She was admitted to the hospital for evaluation of severe lower abdominal pain that started yesterday followed by an episode of syncope. The patient stated that she was at home yesterday and initially developed severe cramping in the lower abdominal area followed by a regular bowel movement. An hour later she had diarrhea followed by bloody bowel movements. She had about 2 or 3 continuously and sat on the commode and subsequently passed out. She was then brought into the emergency room by her family members. Since being in the hospital she had several episodes of bloody bowel movement last night and 2 of them this morning. The abdominal pain is improving. No nausea, no vomiting. She never had these symptoms in the past. In the past she was diagnosed with collagenous colitis and maintained on Lialda on an outpatient basis. Her last colonoscopy at [facility] was in 2018 and, according to the patient, it was within normal limits. No report is available at the time of this dictation. PAST MEDICAL HISTORY: Her past medical history is significant for rheumatoid arthritis, hypertension, fibromyalgia, history of collagenous colitis, atrial fibrillation. MEDICATIONS: Medications at home include Coumadin, Lyrica, K-Dur, Prilosec, multivitamin, Lialda, Imodium, Synthroid, Cortef, Lasix, Flonase, Lomotil, Zyloprim, Kaopectate, Tylenol Extra Strength. ALLERGIES: MACROBID, BACTRIM AND DILAUDID. PAST SURGICAL HISTORY: Cardiac catheterization, cholecystectomy, hernia repair, hysterectomy, tubal ligation, and EGD and colonoscopy July of 2019. SOCIAL HISTORY: No smoking. No alcohol use. FAMILY HISTORY: Father had coronary artery disease and [place]. Mother had possible cancer. REVIEW OF SYSTEMS: CARDIOPULMONARY: No chest pain or shortness of breath. GENITOURINARY: No dysuria or hematuria. MUSCULOSKELETAL: Unremarkable. SKIN: Unremarkable. ENDOCRINE: Unremarkable. PSYCHIATRIC: Unremarkable. NEUROLOGY: Had an episode of syncope, but doing better now. ENT/VISION: Unremarkable. CONSTITUTIONAL: No recent weight loss. No fever, chills, night sweats. HEMATOLOGY: Mild anemia. PHYSICAL EXAMINATION: She appears comfortable. No apparent distress. Vital signs are stable. Blood pressure is 117/69, pulse rate , temperature 98. HEENT examination unremarkable. Conjunctivae pink. Sclerae anicteric. Oral cavity no lesions. NECK: No JVD or lymph node enlargement. CHEST: Clear to auscultation. HEART: Regular rate and rhythm. ABDOMEN: Soft. Bowel sounds are positive. Very minimal tenderness in the left lower quadrant area. EXTREMITIES: No pedal edema. SKIN: No rashes. NEUROLOGIC: Alert and oriented x3. No focal deficits. LABS: WBC 13.5, hemoglobin 10, platelets 113. Basic metabolic panel is within normal limits. INR is 2.1. BUN 33, creatinine 2.01. AST 38, ALT 11, T-bilirubin 2.3 and alkaline phosphatase is within normal limits. CT of the abdomen showed thickening involving the distal transverse colon up to the splenic flexure suspicious for acute colitis. Sigmoid diverticulosis noted without any evidence of diverticulitis. IMPRESSION: 1. This is a lady who presented to the hospital with acute onset of severe lower abdominal pain followed by bloody bowel movements that started yesterday morning, and she had about 7 or 8 episodes with bright red blood per rectum. This morning she had only 2 episodes and is feeling much better. The abdominal pain has improved. CT of the abdomen showed thickening of the sigmoid and transverse colon consistent with acute colitis, most likely ischemic in etiology. The patient did have a colonoscopy at [facility] towards the end of 2019 which was unremarkable. Her report is not available at the time of this dictation. Hemoglobin is currently stable at 10.0 g/dL. 2. History of collagenous colitis, maintained on Lialda on an outpatient basis; doing well. 3. 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 Dr. Lowery is following the patient closely, and apparently she is scheduled for surgery on an outpatient basis 10 days from now. 4. Atrial fibrillation, on Coumadin currently. INR is 2.1. Coumadin is on hold. 5. History of fibromyalgia. RECOMMENDATIONS: 1. Start her on a clear liquid diet. 2. Monitor CBC on a daily basis. 3. No plans for any endoscopic intervention at the present time. 4. Continue Protonix 40 mg daily. 5. Will follow with you. Thank you for this consultation. MMODL / IJN: [id number] /
[2020-05-13 05:05] LABS: HCT 31.4 % (34.0-46.0); MCV 102.3 fL (80.0-100.0); RBC 3.07 m/uL (3.80-5.40); WBC 11.4 k/uL (3.8-10.6)
[2020-05-13 05:06] LABS: Hypochromasia Marked; MCH 29.4 pg (25.0-35.0); MCHC 28.8 g/dL (31.0-37.0); Macrocytosis Slight; Platelet Count 103 k/uL (150-450); RDW 15.2 % (11.5-15.5)
[2020-05-13 05:10] LABS: Calcium 7.7 mg/dL (8.4-10.2)
[2020-05-13] MEDS: LEVOTHYROXINE 88 MCG TAB PO SCH (06:14)
[2020-05-13] MEDS: HYDROCORTISONE 10 MG TAB PO SCH ×2 (06:35→19:22)
[2020-05-13 06:39] LABS: Glucose,Whole Blood 127 mg/dL (75-99)
[2020-05-13] MEDS ORDERED: Potassium Replacement Protocol 1 EACH MISC MISCELLANE PRN (06:56)
[2020-05-13] MEDS: POTASSIUM CHLORIDE ER 20 MEQ TAB.ER PO SCH ×5 (07:08→21:25)
[2020-05-13] MEDS: FUROSEMIDE 20 MG TAB PO SCH (08:57)
[2020-05-13] MEDS: FERROUS SULFATE 325 MG TAB PO SCH (08:57)
[2020-05-13] MEDS: BALSALAZIDE DISODIUM 750 MG CAPSULE PO SCH ×2 (08:57→20:40)
[2020-05-13] MEDS: MULTIVITAMINS, THERA 1 EACH TAB PO SCH (08:57)
[2020-05-13] MEDS: FLUDROCORTISONE 0.1 MG TAB PO SCH ×2 (08:57→20:40)
[2020-05-13] MEDS: allopurinoL 100 MG TAB PO SCH ×3 (08:57→20:40)
[2020-05-13] MEDS ORDERED: PIPERACILLIN-TAZOBACTAM 3.375 GM in SODIUM CHLORIDE 0.9% 100 ML IVPB SCH (12:00)
--- NOTE | 2020-05-13 12:02 | PN ---
PROGRESS NOTE Amelia is a 74-year-old lady who is admitted to the hospital with GI bleed. Cardiology was involved in her care due to atrial fibrillation. This morning, the patient remains in atrial fibrillation with a heart rate in the 110s per minute. With activity, the heart rate is going up to 160-180. Blood pressure is normal at 118/69. PHYSICAL EXAMINATION: There is no jugular venous distention. Chest exam reveals good air entry bilaterally. Heart exam reveals first and second heart sounds with regular rhythm. Abdomen is soft. Exam of extremities did not reveal any edema. Peripheral pulses are felt. LABORATORY DATA: Labs show a hemoglobin of 9, potassium is 3 and is being supplemented. Creatinine is 1.6. ASSESSMENT: 1. Persistent atrial fibrillation with poorly controlled ventricular rate. 2. Gastrointestinal bleed. PLAN: Will continue to hold the anticoagulant. Increase the dose of metoprolol. MMODL / IJN: [id number] /
[2020-05-13 12:10] LABS: Glucose,Whole Blood 164 mg/dL (75-99)
[2020-05-13] MEDS: METOPROLOL TARTRATE 25 MG TAB PO SCH ×3 (12:33→20:40)
[2020-05-13] MEDS: SODIUM CHLORIDE 0.9% 1,000 ML IV SCH (12:34)
--- NOTE | 2020-05-13 13:00 | P.PN ---
Subjective Progress Note Date: 05/13/20 CHIEF COMPLAINT: Syncope and blood in stool HISTORY OF PRESENT ILLNESS: Patient seen and examined with Dr. Lowery in the ICU. 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 She is being followed for lower GI bleed. She did have A bowel movement with some blood present. She's currently on a clear liquid diet. Hemoglobin dropped from 10-9 white count 11.4. Computed tomography scan abdomen nonspecific colitis. Patient's complaints of abdominal cramping. She is afebrile. PHYSICAL EXAM: VITAL SIGNS: Reviewed. GENERAL: Well-developed in no acute distress. HEENT: No sclera icterus. Extraocular movements grossly intact. Moist buccal mucosa. Head is atraumatic, normocephalic. ABDOMEN: Soft. NEUROLOGIC: Alert and oriented. Cranial nerves II through XII grossly intact. ASSESSMENT: 1. Acute lower GI bleed possibly secondary to diverticular bleed or from a rectal prolapse 2. Possible acute colitis likely ischemic 2. Fall with syncope possibly related to orthostatic hypotension 3. History of chronic atrial fibrillation PLAN: -agree with discontinuing Coumadin and aspirin -Continue clear liquids -Continue monitor hemoglobin -Patient does have a bowel resection surgery for diverticular disease scheduled next week May [address] Lowery -Medicine has placed patient on Flagyl and Levaquin Physician Signal Integrity Engineer note has been reviewed by physician. Signing provider agrees with the documented findings, assessment, and plan of care. Objective - Vital Signs Vital signs: Vital Signs Temp 97.6 F 05/13/20 08:00 Pulse 111 H 05/13/20 08:00 Resp 16 05/13/20 08:00 BP 118/69 05/13/20 08:00 Pulse Ox 91 L 05/13/20 08:00 Intake & Output 05/12/20 05/13/20 05/13/20 18:59 06:59 18:59 Intake Total 600 1125 Output Total 1600 1200 Balance -1000 -75 Weight 87.3 kg Intake: Intake, IV Titration 600 1125 Amount Sodium Chloride 0.9% 1, 600 1125 000 ml @ 75 mls/hr IV . [id number] [facility]NA Rx#:[id number] Output: Urine 1600 1200 Other: Voiding Method Indwelling Catheter Indwelling Catheter # Voids 1 # Bowel Movements 4 - Labs CBC & Chem 7: 05/13/20 04:48 05/13/20 04:48 Labs: Abnormal Lab Results - Last 24 Hours (Table) 05/12/20 05/13/20 05/13/20 Range/Units 13:26 04:48 04:48 WBC 11.4 H (3.8-10.6) k/uL RBC 3.07 L (3.80-5.40) m/uL Hgb 9.0 L (11.4-16.0) gm/dL Hct 31.4 L (34.0-46.0) % MCV 102.3 H (80.0-100.0) fL MCHC 28.8 L (31.0-37.0) g/dL Plt Count 103 L (150-450) k/uL Potassium 3.0 L (3.5-5.1) mmol/L Carbon Dioxide 36 H (22-30) mmol/L BUN 29 H (7-17) mg/dL Creatinine 1.66 H (0.52-1.04) mg/dL Glucose 133 H (74-99) mg/dL POC Glucose (mg/dL) 188 H (75-99) mg/dL Calcium 7.7 L (8.4-10.2) mg/dL 05/13/20 05/13/20 Range/Units 06:37 12:07 WBC (3.8-10.6) k/uL RBC (3.80-5.40) m/uL Hgb (11.4-16.0) gm/dL Hct (34.0-46.0) % MCV (80.0-100.0) fL MCHC (31.0-37.0) g/dL Plt Count (150-450) k/uL Potassium (3.5-5.1) mmol/L Carbon Dioxide (22-30) mmol/L BUN (7-17) mg/dL Creatinine (0.52-1.04) mg/dL Glucose (74-99) mg/dL POC Glucose (mg/dL) 127 H 164 H (75-99) mg/dL Calcium (8.4-10.2) mg/dL Microbiology - Last 24 Hours (Table) 05/11/20 13:58 Urine Culture - Preliminary Urine,Voided Group D Enterococcus Yeast species 05/11/20 13:58 Blood Culture - Preliminary Blood No Growth after 24 hours
--- NOTE | 2020-05-13 13:14 | PN ---
PROGRESS NOTE DATE OF SERVICE: 05/13/2020 This 74-year-old woman was admitted with weakness and syncope also had abdominal pain. The patient also had GI bleed. The evaluation showed possible colitis including the distal transverse colon and splenic flexure, also. The patient transferred to ICU. Hemoglobin dropped down to 9. The patient being closely monitored and the patient evaluated by Gastroenterology. Past medical reviewed. REVIEW OF SYSTEMS: Cardiovascular: No angina or palpitations. Respiratory: As mentioned earlier. GI as mentioned. no dysuria. Nervous system: No numbness or weakness. CURRENT MEDICATIONS: Reviewed and include: 1. Tylenol No.3. 2. Zyloprim. 3. Cholestyramine. 4. Lomotil. 5. Iron sulfate. 6. Florinef. 7. Cortef. 8. Levaquin. 9. Synthroid. 10.Imodium. 11.Lopressor. 12.Flagyl. 13.Protonix. 14.K-Dur. PHYSICAL EXAMINATION: Patient is alert and oriented times three. Pulse is 111. Blood pressure 118/69, respirations 16, temperature 97.6, pulse ox 91 percent on 3 L. HEENT: Conjunctivae normal. NECK: No JVD. CARDIOVASCULAR: S1, S2 muffled. RESPIRATION: Breath sounds diminished in the bases. Bilateral scattered rhonchi and crackles. ABDOMEN: Soft, nontender. No mass palpable. No guarding. No rigidity. LEGS: No edema. No swelling. NERVOUS SYSTEM: No focal deficits. LABS: At this time shows WBC 11.2, hemoglobin 9, sodium 130, potassium 3. ASSESSMENT: 1. Fall and syncope, possible orthostatic hypotension. 2. Possible acute gastrointestinal bleed secondary to acute colitis, rule out ischemic colitis or infectious colitis. 3. Severe hypokalemia secondary from diarrhea. 4. Chronic kidney disease stage 3. 5. Hyponatremia. 6. History of previous colonoscopy and colitis. 7. Increased WBC. 8. Anemia macrocytic. 9. Thrombocytopenia. 10.Elevated bilirubin, elevated AST. 11.Hypoalbuminemia. 12.Hematuria. 13.History of asthma. 14.History of fibromyalgia. 15.Hypertension. 16.History of degenerative joint disease. 17.History of recent renal failure. 18.History of rheumatoid arthritis. 19.History of suspected renal insufficiency. 20.Sleep apnea. 21.History of obstructive sleep apnea. 22.History of intermittent bronchial asthma. 23.History of chronic atrial fibrillation. 24.Diabetes mellitus type 2. 25.History of obesity. 26.History of left tibial plateau fracture. 27.History of inflammatory bowel disorder. 28.History of post-polio syndrome. 29.History of degenerative joint disease. 30.History of fibromyalgia. 31.History of hypothyroidism. 32.History of questionable tumor next to pituitary gland. 33.History of cholecystectomy. 34.History of hysterectomy. 35.History of cardioversion. 36.L3-4 lumbar laminectomy history. 37.History of depression. 38.FULL CODE. RECOMMENDATIONS AND DISCUSSION: I recommend to continue current medications, symptomatic treatment. H and H at least q12h and transfuse if hemoglobin less than 7. Closely follow with Dr. Isaac. Empiric antibiotics. The creatinine is slightly better today. Monitor blood pressure closely. Follow orthostatic changes. Guarded prognosis because of multiple complex medical issues. Further recommendations to follow. MMODL / IJN: [id number] /
[2020-05-13] MEDS: LEVOFLOXACIN 250 MG TAB PO SCH (14:25)
[2020-05-13] MEDS: metroNIDAZOLE-NS PMX 500 MG in SALINE 1 100ML.BAG IVPB SCH (16:24)
[2020-05-13 16:58] LABS: Glucose,Whole Blood 132 mg/dL (75-99)
[2020-05-13 19:16] LABS: HCT 31.7 % (34.0-46.0); HGB 9.4 gm/dL (11.4-16.0); Hypochromasia Marked; MCH 30.8 pg (25.0-35.0); MCHC 29.5 g/dL (31.0-37.0); MCV 104.3 fL (80.0-100.0); Macrocytosis Moderate; Mean Platelet Volume 10.7; Platelet Count 117 k/uL (150-450); RBC 3.04 m/uL (3.80-5.40); RDW 15.1 % (11.5-15.5); WBC 14.6 k/uL (3.8-10.6)
[2020-05-13] MEDS ORDERED: Magnesium Replacement Protocol 1 EACH MISC MISCELLANE PRN (19:55)
[2020-05-13 20:13] LABS: Glucose,Whole Blood 117 mg/dL (75-99)
[2020-05-13] MEDS: MAGNESIUM SULFATE-D5W PMX 1 GM in DEXTROSE/WATER 1 100ML.BAG IVPB SCH ×3 (20:31→23:34)
--- NOTE | 2020-05-13 21:57 | PN ---
PROGRESS NOTE DATE OF DICTATION: 05/13/2020 Patient is a 74-year-old pleasant white female admitted to the hospital with acute onset of lower abdominal pain followed by rectal bleeding. She had several episodes yesterday and she had 2 episodes this morning. The last bowel movement was dark brown in color. Her abdominal pain has improved on a clear liquid diet, tolerating well. PHYSICAL EXAMINATION: Appears comfortable. No apparent distress. Vital signs are stable. Blood pressure is 118/69, pulse rate 111, temperature 97.6. HEENT examination unremarkable. Conjunctivae pink. Sclerae anicteric. Oral cavity no lesions. NECK: No JVD or lymph node enlargement. CHEST: Clear to auscultation. HEART: Regular rate and rhythm. ABDOMEN: Soft. Bowel sounds are positive. No organomegaly. Mild tenderness in the left lower quadrant area. EXTREMITIES: No pedal edema. SKIN: No rashes. NEUROLOGIC: Alert and oriented x3. No focal deficits. LABS: WBC 11.4, hemoglobin 9, platelets 103. BUN 29, creatinine 1.66. IMPRESSION: 1. Lower abdominal pain followed by rectal bleeding, possibly related to acute colitis. CT of the abdomen done yesterday without any contrast did show some thickening of the distal transverse colon and splenic flexure and the clinical picture is consistent with possible acute ischemic colitis. Last colonoscopy in July of 2019, according to the patient, was unremarkable. Hemoglobin stable at 10 g/dL. 2. Electrolyte abnormalities, gradually improving. 3. History of chronic kidney disease. 4. History of diverticular disease with questionable colovesical fistula. Dr. Lowery is following the patient closely and she is scheduled for surgery next week. RECOMMENDATIONS: 1. Monitor CBC on a daily basis. 2. Patient on antibiotics for history of diverticular disease. 3. Advance to a full liquid diet. 4. If she has no further episodes of bleeding, her diet can be advanced as tolerated tomorrow. 5. Will follow with you closely. Thank you for this consultation. MMODL / IJN: [id number] /
[2020-05-14] MEDS: metroNIDAZOLE-NS PMX 500 MG in SALINE 1 100ML.BAG IVPB SCH ×3 (00:08→18:33)
[2020-05-14] MEDS: SODIUM CHLORIDE 0.9% 1,000 ML IV SCH ×2 (00:08→15:25)
[2020-05-14 04:49] LABS: HCT 28.8 % (34.0-46.0); HGB 8.5 gm/dL (11.4-16.0); Hypochromasia Marked; MCH 30.6 pg (25.0-35.0); MCHC 29.3 g/dL (31.0-37.0); MCV 104.5 fL (80.0-100.0); Macrocytosis Moderate; Mean Platelet Volume 10.9; Platelet Count 109 k/uL (150-450); RBC 2.76 m/uL (3.80-5.40); RDW 15.2 % (11.5-15.5); WBC 9.6 k/uL (3.8-10.6)
[2020-05-14 05:01] LABS: Calcium 7.7 mg/dL (8.4-10.2); Magnesium 2.3 mg/dL (1.6-2.3); Potassium 3.5 mmol/L (3.5-5.1)
[2020-05-14] MEDS: LEVOTHYROXINE 88 MCG TAB PO SCH (06:50)
[2020-05-14] MEDS: HYDROCORTISONE 10 MG TAB PO SCH ×2 (06:50→18:32)
[2020-05-14 07:19] LABS: Glucose,Whole Blood 118 mg/dL (75-99)
--- NOTE | 2020-05-14 09:15 | P.PN ---
Subjective Progress Note Date: 05/14/20 Principal diagnosis: Atrial fibrillation HISTORY OF PRESENTING ILLNESS This is a pleasant 74-year-old female past medical history significant for asthma, fibromyalgia, frequent bladder inflammation, hypertension, rheumatoid arthritis, obstructive sleep apnea, colitis with complications with possible fistula and frequent bouts of colitis who presented with new onset of abdominal pain and diarrhea consistent with her colitis as well as episode of syncope on the toilet. Patient has been on Coumadin for her atrial fibrillation and admits to having more frequent blood in her stool with this bout of colitis. She has been scheduled to have surgery one week from now. While she was sitting on the toilet she had abdominal pain and became nauseated and had syncope. She denies lightheadedness normally and has never had prior syncope. 05/14/2020 Patient mentions she is doing okay. She denies any chest pain or pressure. She remains in atrial fibrillation. Heart rates are predominantly controlled in the 70s to 80s. She does admit to some continued blood in the stool. Her Coumadin and aspirin were stopped due to bleeding. REVIEW OF SYSTEMS At the time of my exam: CONSTITUTIONAL: Denies fever or chills. CARDIOVASCULAR: Denies chest pain, shortness of breath, orthopnea, PND or palpitations. RESPIRATORY: Denies cough. GASTROINTESTINAL: + abdominal pain, +diarrhea, no constipation, nausea or vomiting. ENDOCRINE: Denies fatigue, weight change, polydipsia or polyurina. GENITOURINARY: + burning, no hematuria HEMATOLOGIC: +anemia, + bleeding. PHYSICAL EXAMINATION Blood pressure 100/58 heart rate 79 afebrile and maintaining oxygen saturation on room air. CONSTITUTIONAL: No apparent distress HEENT: Head is normocephalic. Pupils are equal, round. Sclerae anicteric. Mucous membranes of the mouth are moist. No JVD. No carotid bruit. CHEST EXAMINATION: Lungs are clear to auscultation. No chest wall tenderness is noted on palpation or with deep breathing. HEART EXAMINATION: Regularly irregular rate and rhythm. S1, S2 heard. No murmurs, gallops or rub. ABDOMEN: Soft, +tender. Positive bowel sounds. EXTREMITIES: 2+ peripheral pulses, no lower extremity edema and no calf tenderness. NEUROLOGIC EXAMINATION: Patient is awake, alert and oriented x3. ASSESSMENT 1. Acute GI bleed likely related to her colitis holding anticoagulation and antiplatelets 2. Long-standing persistent atrial fibrillation, previously on Coumadin which is being held 3. Syncope, likely vasovagal as well as dehydration with event occurring on the toilet with increased vagal tone 4. Chronic kidney disease 5. Pulmonary hypertension with RVSP of 45 on prior echo 6. Preserved ejection fraction 50% on echo 04/29/2020 PLAN Continue supportive care and workup of colitis and GI bleed. We will continue to hold her Coumadin and antiplatelets given GI bleed and possible need for s urgery in a week. Blood pressures low-normal and we will continue with metoprolol 25 mg 3 times a day for rate control. We will discontinue Lasix as she is receiving IV fluids currently and does not appear to be overloaded. Continue to monitor. Objective - Vital Signs Vital signs: Vital Signs Temp 97.9 F 05/14/20 04:00 Pulse 83 05/14/20 04:00 Resp 15 05/14/20 04:00 BP 95/57 05/14/20 04:00 Pulse Ox 94 L 05/14/20 04:00 Intake & Output 05/13/20 05/14/20 05/14/20 18:59 06:59 18:59 Intake Total 525 1500 Output Total 720 1700 Balance -195 -200 Weight 89.5 kg Intake: IV 1500 Magnesium Sulfate-D5w Pmx 200 1 gm In Dextrose/Water 1 100ml.bag @ 100 mls/hr IVPB Q1H [facility] Rx#: [id number] Sodium Chloride 0.9% 1, 1200 000 ml @ 75 mls/hr IV . [id number] [facility]NA Rx#:[id number] PMX 500 100 mg In Saline 1 100ml.bag @ 100 mls/hr IVPB Q8HR NENA Rx#:[id number] Intake, IV Titration 525 Amount Sodium Chloride 0.9% 1, 525 000 ml @ 75 mls/hr IV . [id number] [facility]NA Rx#:[id number] Output: Urine 720 1700 Other: Voiding Method Indwelling Catheter Indwelling Catheter - Labs CBC & Chem 7: 05/14/20 04:08 05/14/20 04:08 Labs: Abnormal Lab Results - Last 24 Hours (Table) 05/13/20 05/13/20 05/13/20 Range/Units 12:07 16:57 18:57 WBC 14.6 H (3.8-10.6) k/uL RBC 3.04 L (3.80-5.40) m/uL Hgb 9.4 L (11.4-16.0) gm/dL Hct 31.7 L (34.0-46.0) % MCV 104.3 H (80.0-100.0) fL MCHC 29.5 L (31.0-37.0) g/dL Plt Count 117 L (150-450) k/uL Potassium (3.5-5.1) mmol/L Carbon Dioxide (22-30) mmol/L BUN (7-17) mg/dL Creatinine (0.52-1.04) mg/dL Glucose (74-99) mg/dL POC Glucose (mg/dL) 164 H 132 H (75-99) mg/dL Calcium (8.4-10.2) mg/dL Magnesium (1.6-2.3) mg/dL 05/13/20 05/13/20 05/13/20 Range/Units 18:57 18:57 20:11 WBC (3.8-10.6) k/uL RBC (3.80-5.40) m/uL Hgb (11.4-16.0) gm/dL Hct (34.0-46.0) % MCV (80.0-100.0) fL MCHC (31.0-37.0) g/dL Plt Count (150-450) k/uL Potassium 3.1 L (3.5-5.1) mmol/L Carbon Dioxide (22-30) mmol/L BUN (7-17) mg/dL Creatinine (0.52-1.04) mg/dL Glucose (74-99) mg/dL POC Glucose (mg/dL) 117 H (75-99) mg/dL Calcium (8.4-10.2) mg/dL Magnesium 1.4 L (1.6-2.3) mg/dL 05/14/20 05/14/20 05/14/20 Range/Units 04:08 04:08 07:18 WBC (3.8-10.6) k/uL RBC 2.76 L (3.80-5.40) m/uL Hgb 8.5 L (11.4-16.0) gm/dL Hct 28.8 L (34.0-46.0) % MCV 104.5 H (80.0-100.0) fL MCHC 29.3 L (31.0-37.0) g/dL Plt Count 109 L (150-450) k/uL Potassium (3.5-5.1) mmol/L Carbon Dioxide 32 H (22-30) mmol/L BUN 21 H (7-17) mg/dL Creatinine 1.46 H (0.52-1.04) mg/dL Glucose 140 H (74-99) mg/dL POC Glucose (mg/dL) 118 H (75-99) mg/dL Calcium 7.7 L (8.4-10.2) mg/dL Magnesium (1.6-2.3) mg/dL Microbiology - Last 24 Hours (Table) 05/11/20 13:58 Urine Culture - Final Urine,Voided Enterococcus faecium VRE Megan albicans 05/11/20 13:58 Blood Culture - Preliminary Blood No Growth after 48 hours
[2020-05-14] MEDS: POTASSIUM CHLORIDE ER 20 MEQ TAB.ER PO SCH (10:32)
[2020-05-14] MEDS: METOPROLOL TARTRATE 25 MG TAB PO SCH ×3 (10:32→20:31)
[2020-05-14] MEDS: allopurinoL 100 MG TAB PO SCH ×3 (10:32→20:31)
[2020-05-14] MEDS: MULTIVITAMINS, THERA 1 EACH TAB PO SCH (10:32)
[2020-05-14] MEDS: FERROUS SULFATE 325 MG TAB PO SCH (10:32)
[2020-05-14] MEDS: FLUDROCORTISONE 0.1 MG TAB PO SCH ×2 (10:44→20:31)
[2020-05-14] MEDS: BALSALAZIDE DISODIUM 750 MG CAPSULE PO SCH ×2 (10:44→20:31)
--- NOTE | 2020-05-14 12:22 | P.PN ---
Subjective Progress Note Date: 05/14/20 CHIEF COMPLAINT: Syncope and blood in stool HISTORY OF PRESENT ILLNESS: Patient seen and examined with Dr. Lowery in the ICU. 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 She is being followed for lower GI bleed. Patient had no further blood in her stools. She is now having diarrhea. C. diff has been ordered. She has VRE in the urine and infectious is following. WBC normalized at 9.6 hemoglobin has dropped from 9.4-8.5. Platelets 109 magnesium 2.3 PHYSICAL EXAM: VITAL SIGNS: Reviewed. GENERAL: Well-developed in no acute distress. HEENT: No sclera icterus. Extraocular movements grossly intact. Moist buccal mucosa. Head is atraumatic, normocephalic. ABDOMEN: Soft. Mild tenderness to palpation in the left lower quadrant NEUROLOGIC: Alert and oriented. Cranial nerves II through XII grossly intact. ASSESSMENT: 1. Acute lower GI bleed possibly secondary to diverticular bleed or from a rectal prolapse 2. Possible acute colitis likely ischemic also can be contributing to GI bleed 2. Fall with syncope possibly orthostatic hypotension 3. History of chronic atrial fibrillation PLAN: -agree with discontinuing Coumadin and aspirin -Continue full liquids -Continue monitor hemoglobin -Patient does have a bowel resection surgery for diverticular disease scheduled next week May [address] Lowery -antibiotics per ID Physician [facility] note has been reviewed by physician. Signing provider agrees with the documented findings, assessment, and plan of care. Objective - Vital Signs Vital signs: Vital Signs Temp 97.9 F 05/14/20 08:00 Pulse 98 05/14/20 08:00 Resp 12 05/14/20 08:00 BP 110/67 05/14/20 08:00 Pulse Ox 95 05/14/20 08:00 Intake & Output 05/13/20 05/14/20 05/14/20 18:59 06:59 18:59 Intake Total 525 1500 Output Total 720 1700 Balance -195 -200 Weight 89.5 kg Intake: IV 1500 Magnesium Sulfate-D5w Pmx 200 1 gm In Dextrose/Water 1 100ml.bag @ 100 mls/hr IVPB Q1H [facility] Rx#: [id number] Sodium Chloride 0.9% 1, 1200 000 ml @ 75 mls/hr IV . [id number] [facility] Rx#:[id number] metroNIDAZOLE-NS PMX 500 100 mg In Saline 1 100ml.bag @ 100 mls/hr IVPB Q8HR [facility] Rx#:[id number] Intake, IV Titration 525 Amount Sodium Chloride 0.9% 1, 525 000 ml @ 75 mls/hr IV . [id number] [facility] Rx#:[id number] Output: Urine 720 1700 Other: Voiding Method Indwelling Catheter Indwelling Catheter - Labs CBC & Chem 7: 05/14/20 04:08 05/14/20 04:08 Labs: Abnormal Lab Results - Last 24 Hours (Table) 05/13/20 05/13/20 05/13/20 Range/Units 16:57 18:57 18:57 WBC 14.6 H (3.8-10.6) k/uL RBC 3.04 L (3.80-5.40) m/uL Hgb 9.4 L (11.4-16.0) gm/dL Hct 31.7 L (34.0-46.0) % MCV 104.3 H (80.0-100.0) fL MCHC 29.5 L (31.0-37.0) g/dL Plt Count 117 L (150-450) k/uL Potassium (3.5-5.1) mmol/L Carbon Dioxide (22-30) mmol/L BUN (7-17) mg/dL Creatinine (0.52-1.04) mg/dL Glucose (74-99) mg/dL POC Glucose (mg/dL) 132 H (75-99) mg/dL Calcium (8.4-10.2) mg/dL Magnesium 1.4 L (1.6-2.3) mg/dL 05/13/20 05/13/20 05/14/20 Range/Units 18:57 20:11 04:08 WBC (3.8-10.6) k/uL RBC 2.76 L (3.80-5.40) m/uL Hgb 8.5 L (11.4-16.0) gm/dL Hct 28.8 L (34.0-46.0) % MCV 104.5 H (80.0-100.0) fL MCHC 29.3 L (31.0-37.0) g/dL Plt Count 109 L (150-450) k/uL Potassium 3.1 L (3.5-5.1) mmol/L Carbon Dioxide (22-30) mmol/L BUN (7-17) mg/dL Creatinine (0.52-1.04) mg/dL Glucose (74-99) mg/dL POC Glucose (mg/dL) 117 H (75-99) mg/dL Calcium (8.4-10.2) mg/dL Magnesium (1.6-2.3) mg/dL 05/14/20 05/14/20 Range/Units 04:08 07:18 WBC (3.8-10.6) k/uL RBC (3.80-5.40) m/uL Hgb (11.4-16.0) gm/dL Hct (34.0-46.0) % MCV (80.0-100.0) fL MCHC (31.0-37.0) g/dL Plt Count (150-450) k/uL Potassium (3.5-5.1) mmol/L Carbon Dioxide 32 H (22-30) mmol/L BUN 21 H (7-17) mg/dL Creatinine 1.46 H (0.52-1.04) mg/dL Glucose 140 H (74-99) mg/dL POC Glucose (mg/dL) 118 H (75-99) mg/dL Calcium 7.7 L (8.4-10.2) mg/dL Magnesium (1.6-2.3) mg/dL Microbiology - Last 24 Hours (Table) 05/11/20 13:58 Urine Culture - Final Urine,Voided Enterococcus faecium VRE Megan albicans 05/11/20 13:58 Blood Culture - Preliminary Blood No Growth after 48 hours
[2020-05-14] MEDS: DAPTOmycin 350 MG in SODIUM CHLORIDE 0.9% 50 ML IVPB SCH (12:48)
[2020-05-14] MEDS: LEVOFLOXACIN 250 MG TAB PO SCH (15:24)
[2020-05-14] MEDS ORDERED: FLUCONAZOLE IN NACL,ISO-OSM 100 MG in SALINE 1 50ML.BAG IVPB SCH (16:00)
--- NOTE | 2020-05-14 16:44 | P.GSCN ---
History of Present Illness Consult date: 05/14/20 History of present illness: Dr Jack was asked to see this patient is a postoperative follow-up from cystoscopy and bladder biopsies on 04/28/2020. Biopsies showed chronic inflammation in the interstitial cystitis. Currently the patient has had recurring urinary infection. 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 This was identified by poppy seed test for the patient ingested poppy seeds and then noted them in the bladder. I do not have the office chart at hand nor am I able to contact at this point in time. Apparently Dr. Travis. is planning on a colectomy when she recuperates from this medical illnesses that brought her brought in the hospital. The patient has had chronic urine infection. She does not have pneumaturia. She has an indwelling catheter present Review of Systems - Constitutional Reports as per HPI Past Medical History Past Medical History: Asthma, Fibromyalgia, Hypertension, Osteoarthritis (OA), Rheumatoid Arthritis (RA), Sleep Apnea/CPAP/BIPAP, Thyroid Disorder Additional Past Medical History / Comment(s): Obstructive sleep apnea, mild intermittent bronchial asthma, chronic atrial fibrillation, ALLERGIC rhinitis, diabetes mellitus, hypertension, chronic kidney disease, obesity, history of left tibial plateau fracture, inflammatory bowel disease, post polio syndrome, hypertension, osteoarthritis, fibromyalgia, hypothyroidism, 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 "Dr. Abdi Riggs fixed a hole in my heart". Cardioversion. L3-4 lumber laminectomy. per pt she is to have a bowel resection on 05/21/20 Past Anesthesia/Blood Transfusion Reactions: Motion Sickness, Postoperative Nausea & Vomiting (PONV) Additional Past Anesthesia/Blood Transfusion Reaction / Comm: has letter from "post polio with anesthesia recommendations" pt to bring with her. "takes lo ng time to come out of anesthesia" Past Psychological History: Depression Smoking Status: Never smoker Past Alcohol Use History: Occasional Past Drug Use History: None Reported - Past Family History Father Family Medical History: Myocardial Infarction ([place]) Mother Family Medical History: Cancer Additional Family Medical History / Comment(s): Suspected. Medications and Allergies Home Medications Medication Instructions Recorded Confirmed Type Levothyroxine Sodium [Synthroid] 88 mcg PO DAILY 04/08/14 05/11/20 History Loperamide [Imodium] 4 mg PO DAILY PRN 04/08/14 05/11/20 History Mesalamine [Lialda] 1.2 gm PO BID 04/08/14 05/11/20 History Acetaminophen [Tylenol Extra 500 mg PO DAILY PRN 08/01/18 05/11/20 History Strength] Omeprazole [PriLOSEC] 20 mg PO AC-BRKFST PRN 08/01/18 05/11/20 History allopurinoL [Zyloprim] 100 mg PO TID 08/01/18 05/11/20 History Pregabalin [Lyrica] 200 mg PO BID 08/08/18 05/11/20 History Diphenox-Atrop 2.5-0.025 mg 2 tab PO TID-W/MEALS PRN 11/08/19 05/11/20 History [Lomotil] Ferrous Sulfate [Iron (65 MG 325 mg PO DAILY 11/08/19 05/11/20 History Elemental)] Fluticasone Nasal [place] [Flonase 2 spr EA NOSTRIL DAILY PRN 11/08/19 05/11/20 History Nasal [place]] Keybiotics 1 tab PO DAILY 11/08/19 05/11/20 History Multivitamins, Thera [Multivitamin 1 tab PO DAILY 04/28/20 05/11/20 History (formulary)] Warfarin [Coumadin] 2 mg PO DAILY 04/28/20 05/11/20 History Warfarin [Coumadin] 3 mg PO DIRECTED 04/28/20 05/11/20 History Furosemide [Lasix] 40 mg PO DAILY 30 Days #30 tab 05/05/20 05/11/20 Rx Hydrocortisone [Cortef] 10 mg PO BID 30 Days #60 tab 05/05/20 05/11/20 Rx Phenazopyridine [Pyridium] 200 mg PO TID 30 Days #90 tab 05/05/20 05/11/20 Rx Potassium Chloride ER [K-Dur 20] 20 meq PO DAILY 30 Days #30 05/05/20 05/11/20 Rx tab.er.prt Acetaminophen-Codeine 300-30mg 1 - 2 tab PO Q4H PRN 05/11/20 05/11/20 History [Tylenol w/codeine #3] Allergies Allergy/AdvReac Type Severity Reaction Status Date / Time nitrofurantoin Allergy Severe Rash/Hives Verified 05/11/20 15:48 [From Macrobid] nitrofurantoin Allergy Severe Rash/Hives Verified 05/11/20 15:48 macrocrystalline [From Macrobid] sulfamethoxazole Allergy Severe Rash/Hives Verified 05/11/20 15:48 [From Bactrim] trimethoprim [From Bactrim] Allergy Severe Rash/Hives Verified 05/11/20 15:48 hydromorphone HCl AdvReac Severe Nausea & Verified 05/11/20 15:48 [From Dilaudid] Vomiting Surgical - Exam Vital Signs Temp Pulse Resp BP Pulse Ox 97.9 F 96 18 116/69 96 05/11/20 13:36 05/11/20 13:36 05/11/20 13:36 05/11/20 13:36 05/11/20 13:36 - General well developed, well nourished, no distress - Eyes PERRL - ENT no hearing loss - Respiratory normal expansion, normal respiratory effort - Cardiovascular Rhythm: regular - Abdomen Abdomen: soft, non tender Results - Labs 05/14/20 04:08 05/14/20 04:08 Abnormal Lab Results - Last 24 Hours (Table) 05/13/20 05/13/20 05/13/20 Range/Units 16:57 18:57 18:57 WBC 14.6 H (3.8-10.6) k/uL RBC 3.04 L (3.80-5.40) m/uL Hgb 9.4 L (11.4-16.0) gm/dL Hct 31.7 L (34.0-46.0) % MCV 104.3 H (80.0-100.0) fL MCHC 29.5 L (31.0-37.0) g/dL Plt Count 117 L (150-450) k/uL Potassium (3.5-5.1) mmol/L Carbon Dioxide (22-30) mmol/L BUN (7-17) mg/dL Creatinine (0.52-1.04) mg/dL Glucose (74-99) mg/dL POC Glucose (mg/dL) 132 H (75-99) mg/dL Calcium (8.4-10.2) mg/dL Magnesium 1.4 L (1.6-2.3) mg/dL 05/13/20 05/13/20 05/14/20 Range/Units 18:57 20:11 04:08 WBC (3.8-10.6) k/uL RBC 2.76 L (3.80-5.40) m/uL Hgb 8.5 L (11.4-16.0) gm/dL Hct 28.8 L (34.0-46.0) % MCV 104.5 H (80.0-100.0) fL MCHC 29.3 L (31.0-37.0) g/dL Plt Count 109 L (150-450) k/uL Potassium 3.1 L (3.5-5.1) mmol/L Carbon Dioxide (22-30) mmol/L BUN (7-17) mg/dL Creatinine (0.52-1.04) mg/dL Glucose (74-99) mg/dL POC Glucose (mg/dL) 117 H (75-99) mg/dL Calcium (8.4-10.2) mg/dL Magnesium (1.6-2.3) mg/dL 05/14/20 05/14/20 Range/Units 04:08 07:18 WBC (3.8-10.6) k/uL RBC (3.80-5.40) m/uL Hgb (11.4-16.0) gm/dL Hct (34.0-46.0) % MCV (80.0-100.0) fL MCHC (31.0-37.0) g/dL Plt Count (150-450) k/uL Potassium (3.5-5.1) mmol/L Carbon Dioxide 32 H (22-30) mmol/L BUN 21 H (7-17) mg/dL Creatinine 1.46 H (0.52-1.04) mg/dL Glucose 140 H (74-99) mg/dL POC Glucose (mg/dL) 118 H (75-99) mg/dL Calcium 7.7 L (8.4-10.2) mg/dL Magnesium (1.6-2.3) mg/dL Microbiology - Last 24 Hours (Table) 05/11/20 13:58 Blood Culture - Preliminary Blood No Growth after 72 hours 05/11/20 13:58 Urine Culture - Final Urine,Voided Enterococcus faecium VRE Megan albicans Diabetes panel 05/13/20 05/14/20 Range/Units 18:57 04:08 Sodium 137 (137-145) mmol/L Potassium 3.1 L 3.5 (3.5-5.1) mmol/L Chloride 104 (98-107) mmol/L Carbon Dioxide 32 H (22-30) mmol/L BUN 21 H (7-17) mg/dL Creatinine 1.46 H (0.52-1.04) mg/dL Glucose 140 H (74-99) mg/dL Calcium 7.7 L (8.4-10.2) mg/dL Calcium panel 05/14/20 Range/Units 04:08 Calcium 7.7 L (8.4-10.2) mg/dL Pituitary panel 05/13/20 05/14/20 Range/Units 18:57 04:08 Sodium 137 (137-145) mmol/L Potassium 3.1 L 3.5 (3.5-5.1) mmol/L Chloride 104 (98-107) mmol/L Carbon Dioxide 32 H (22-30) mmol/L BUN 21 H (7-17) mg/dL Creatinine 1.46 H (0.52-1.04) mg/dL Glucose 140 H (74-99) mg/dL Calcium 7.7 L (8.4-10.2) mg/dL Adrenal panel 05/13/20 05/14/20 Range/Units 18:57 04:08 Sodium 137 (137-145) mmol/L Potassium 3.1 L 3.5 (3.5-5.1) mmol/L Chloride 104 (98-107) mmol/L Carbon Dioxide 32 H (22-30) mmol/L BUN 21 H (7-17) mg/dL Creatinine 1.46 H (0.52-1.04) mg/dL Glucose 140 H (74-99) mg/dL Calcium 7.7 L (8.4-10.2) mg/dL Assessment and Plan Assessment: Impression: Recurrent urinary tract infection, chronic cystitis. Biopsies did not show any malignancy. It sounds as if she has a colovesical fistula. She does have diverticular disease. Recommendations: I'll discuss with Dr. Jack any further urologic plans for the future.
[2020-05-14 16:57] LABS: Glucose,Whole Blood 129 mg/dL (75-99)
--- NOTE | 2020-05-14 18:58 | PN ---
PROGRESS NOTE DATE OF SERVICE: 05/14/2020 This 74-year-old woman who was admitted with weakness and syncope had abdominal pain. The patient had a GI bleed and the CT scan showed possible colitis involving the distal transverse and splenic flexure also. The patient recently had a urinary procedure. The culture is showing Enterococcus, VRE and Megan albicans from the urine. The patient being closely monitored. The patient is on IV daptomycin. Past medical history reviewed. REVIEW OF SYSTEMS: CARDIOVASCULAR SYSTEM: No angina, palpitations. RESPIRATORY SYSTEM: As mentioned earlier. GI: As mentioned earlier. : No dysuria or retention. NERVOUS SYSTEM: No numbness, weakness. CURRENT MEDICATIONS: Reviewed. They include: 1. Tylenol 500 mg daily. 2. Tylenol No.3. 3. Zyloprim. 4. Daptomycin. 5. Lomotil. 6. Iron sulfate. 7. Florinef. 8. Cortef. 9. Synthroid. 10.Imodium. 11.Multivitamins. 12.Protonix. 13.K-Dur. PHYSICAL EXAMINATION: Patient is alert, oriented x3. Pulse is 85, blood pressure 120/72, respirations 16, temperature 97.6, pulse ox 94% on room air. HEENT: Conjunctivae normal. NECK: No jugular venous distention. CARDIOVASCULAR SYSTEM: S1, S2 muffled. RESPIRATORY SYSTEM: Breath sounds diminished at the bases. Scattered rhonchi and crackles. ABDOMEN: Soft, non-tender. LEGS: No edema. No swelling. NERVOUS SYSTEM: No focal deficit. LABS: Labs at this time show WBC 10.6, hemoglobin 8.5, sodium 137. ASSESSMENT: 1. Fall and syncope, possible orthostatic hypotension. 2. Acute gastrointestinal bleed secondary to acute colitis, possibly ischemic colitis or infectious colitis in the distal transverse colon as well as splenic flexure. 3. Severe hypokalemia secondary to diarrhea. 4. Vancomycin-resistant Enterococcus urinary tract infection. 5. Megan albicans from the urine and urinary tract infection. 6. Chronic kidney disease, stage 3. 7. Hyponatremia. 8. History of previous colonoscopy and colitis. 9. History of recent cystoscopy and biopsy. 10.Increased white count. 11.Anemia, macrocytic. 12.Thrombocytopenia. 13.Elevated bilirubin, elevated AST. 14.Hypoalbuminemia. 15.Hematuria. 16.History of asthma. 17.History of fibromyalgia. 18.Hypertension. 19.History of degenerative joint disease. 20.History of recent renal failure. 21.History of rheumatoid arthritis. 22.History of suspected adrenal insufficiency. 23.Sleep apnea. 24.History of obstructive sleep apnea. 25.History of intermittent bronchial asthma. 26.History of chronic atrial fibrillation. 27.History of diabetes mellitus, type 2. 28.History of obesity. 29.History of left tibial plateau fracture. 30.History of inflammatory bowel disorder. 31.History of post-polio syndrome. 32.History of hypothyroidism. 33.History of questionable tumor next to pituitary gland. 34.History of cholecystectomy. 35.History of hysterectomy. 36.History of cardioversion. 37.L3-4 lumbar laminectomy history. 38.History of depression. 39.FULL CODE. RECOMMENDATIONS AND DISCUSSION: I recommend to continue current medications, continue with the monitoring, symptomatic treatment. Otherwise at this time I would recommend continuing the IV antibiotics. Antifungals. Continue the rest of the medications. Repeat labs. Monitor GI bleed closely. Prognosis guarded because of the multiple complex medical issues. Further recommendations to follow. Discussed with the patient at length. Will closely follow with multiple consultants. See orders for details. MMODL / IJN: [id number] /
[2020-05-14] MEDS: PREGABALIN 100 MG CAP PO SCH (20:31)
--- NOTE | 2020-05-14 23:31 | PN ---
PROGRESS NOTE DATE OF DICTATION: 05/14/2020 The patient is a 74-year-old pleasant white female seen in followup today. She is doing better, some left lower quadrant abdominal pain. No bowel movements all day today. Yesterday had one dark-colored stool. No bleeding. No nausea, vomiting. She was seen by Dr. Dasilva today. PHYSICAL EXAMINATION: Appears comfortable, in no apparent distress. Vital signs are stable. Blood pressure is 122/72, pulse rate 83, temperature 97.6. HEENT EXAMINATION: Unremarkable. Conjunctivae pink. Sclerae anicteric. Oral cavity, no lesions. NECK: No JVD. CHEST: Clear to auscultation. HEART: Regular rate and rhythm. ABDOMEN: Soft. Mild tenderness in the left lower quadrant area. EXTREMITIES: No pedal edema. NEUROLOGIC: Alert and oriented x3. No focal deficits. LABS: WBC 9.6, hemoglobin 8.5, platelets 109. Basic metabolic panel is within normal limits. IMPRESSION: 1. Acute colitis possibly ischemic colitis, improving. Bleeding has resolved. Abdominal pain is improving. On a full liquid diet, tolerating well. 2. Vancomycin-resistant urinary tract infection on antibiotics. 3. Possible colovesical fistula. Dr. Dasilva following the patient. The patient is scheduled for elective sigmoid colectomy by Dr. Lowery in 1 week. 4. History of chronic kidney disease. 5. History of hypertension and hyperlipidemia. RECOMMENDATIONS: 1. Continue with antibiotics. 2. Advance diet as tolerated. 3. Monitor CBC daily. 4. We will follow with you closely. Thank you for this consultation. MMODL / IJN: [id number] /
--- NOTE | 2020-05-15 00:07 | P.CONS ---
History of Present Illness - Reason for Consult Consult date: 05/14/20 VRE urinary tract infection Requesting physician: Sury Collins - Chief Complaint Diarrhea and presyncopal episode x one day - History of Present Illness Patient is 74-year-old female with past medical history significant for atrial fibrillation patient also history of community-acquired interstitial cystitis urinary outflow obstruction requiring Peoples catheter placement recent admission to the hospital for diarrhea and cystitis treated symptomatically with pyridium and Questran, patient has been brought back to the hospital the day of admission with concern for significant Diarrhea with Some Blood in the Stools Also Complaining of Some Lower Abdominal Pain More of a Dull Aching Quality 5-6 Out Of 10 and No Radiation with Associated Nausea but No Vomiting and the Patient Almost Passed out Radiation to the Patient Was Evaluated by the Physician She Has Been Admitted to the ICU CT Abdominal Pelvis Did Show Some Nonspecific transverse colon and splenic flexure colitis, patient has been treated with Levaquin and Flagyl, she also positive UA has been obtained from the for the Peoples catheter that admission, patient did have elevated white count but no fever during this admission, urine culture Positive with VRE that prompted this infectious disease consultation Review of Systems Positive point has been mentioned in the HPI rest of the systems are negative Past Medical History Past Medical History: Asthma, Fibromyalgia, Hypertension, Osteoarthritis (OA), Rheumatoid Arthritis (RA), Sleep Apnea/CPAP/BIPAP, Thyroid Disorder Additional Past Medical History / Comment(s): Obstructive sleep apnea, mild intermittent bronchial asthma, chronic atrial fibrillation, ALLERGIC rhinitis, diabetes mellitus, hypertension, chronic kidney disease, obesity, history of left tibial plateau fracture, inflammatory bowel disease, post polio syndrome, hypertension, osteoarthritis, fibromyalgia, hypothyroidism, 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 "Dr. Abdi Riggs fixed a hole in my heart". Cardioversion. L3-4 lumber laminectomy. per pt she is to have a bowel resection on 05/21/20 Past Anesthesia/Blood Transfusion Reactions: Motion Sickness, Postoperative Nausea & Vomiting (PONV) Additional Past Anesthesia/Blood Transfusion Reaction / Comm: has letter from "post polio dr with anesthesia recommendations" pt to bring with her. "takes long time to come out of anesthesia" Past Psychological History: Depression Smoking Status: Never smoker Past Alcohol Use History: Occasional Past Drug Use History: None Reported - Past Family History Father Family Medical History: Myocardial Infarction ([place]) Mother Family Medical History: Cancer Additional Family Medical History / Comment(s): Suspected. Medications and Allergies Home Medications Medication Instructions Recorded Confirmed Type Levothyroxine Sodium [Synthroid] 88 mcg PO DAILY 04/08/14 05/11/20 History Loperamide [Imodium] 4 mg PO DAILY PRN 04/08/14 05/11/20 History Mesalamine [Lialda] 1.2 gm PO BID 04/08/14 05/11/20 History Acetaminophen [Tylenol Extra 500 mg PO DAILY PRN 08/01/18 05/11/20 History Strength] Omeprazole [PriLOSEC] 20 mg PO AC-BRKFST PRN 08/01/18 05/11/20 History allopurinoL [Zyloprim] 100 mg PO TID 08/01/18 05/11/20 History Pregabalin [Lyrica] 200 mg PO BID 08/08/18 05/11/20 History Diphenox-Atrop 2.5-0.025 mg 2 tab PO TID-W/MEALS PRN 11/08/19 05/11/20 History [Lomotil] Ferrous Sulfate [Iron (65 MG 325 mg PO DAILY 11/08/19 05/11/20 History Elemental)] Fluticasone Nasal Mel[place] [Flonase 2 spr EA NOSTRIL DAILY PRN 11/08/19 05/11/20 History Nasal Mellette] Keybiotics 1 tab PO DAILY 11/08/19 05/11/20 History Multivitamins, Thera [Multivitamin 1 tab PO DAILY 04/28/20 05/11/20 History (formulary)] Warfarin [Coumadin] 2 mg PO DAILY 04/28/20 05/11/20 History Warfarin [Coumadin] 3 mg PO DIRECTED 04/28/20 05/11/20 History Furosemide [Lasix] 40 mg PO DAILY 30 Days #30 tab 05/05/20 05/11/20 Rx Hydrocortisone [Cortef] 10 mg PO BID 30 Days #60 tab 05/05/20 05/11/20 Rx Phenazopyridine [Pyridium] 200 mg PO TID 30 Days #90 tab 05/05/20 05/11/20 Rx Potassium Chloride ER [K-Dur 20] 20 meq PO DAILY 30 Days #30 05/05/20 05/11/20 Rx tab.er.prt Acetaminophen-Codeine 300-30mg 1 - 2 tab PO Q4H PRN 05/11/20 05/11/20 History [Tylenol w/codeine #3] Allergies Allergy/AdvReac Type Severity Reaction Status Date / Time nitrofurantoin Allergy Severe Rash/Hives Verified 05/11/20 15:48 [From Macrobid] nitrofurantoin Allergy Severe Rash/Hives Verified 05/11/20 15:48 macrocrystalline [From Macrobid] sulfamethoxazole Allergy Severe Rash/Hives Verified 05/11/20 15:48 [From Bactrim] trimethoprim [From Bactrim] Allergy Severe Rash/Hives Verified 05/11/20 15:48 hydromorphone HCl AdvReac Severe Nausea & Verified 05/11/20 15:48 [From Dilaudid] Vomiting Physical Exam Vitals: Vital Signs Temp Pulse Resp BP BP Pulse Ox 05/14/20 20:00 97.9 F 77 16 135/88 95 05/14/20 16:00 97.6 F 83 16 122/72 05/14/20 12:00 97.6 F 85 16 120/72 05/14/20 08:00 97.9 F 98 12 110/67 95 05/14/20 04:00 97.9 F 83 15 95/57 94 L 05/14/20 00:00 98.3 F 79 12 100/58 93 L Intake and Output 05/14/20 05/14/20 05/15/20 14:59 22:59 06:59 Intake Total 750 600 Output Total 500 250 Balance 250 350 Intake: IV 750 600 Sodium Chloride 0.9% 1, 600 600 000 ml @ 75 mls/hr IV . [id number] [facility] Rx#:[id number] daptomycin 50 metroNIDAZOLE-NS PMX 500 100 mg In Saline 1 100ml.bag @ 100 mls/hr IVPB Q8HR [facility] Rx#:[id number] Output: Urine 500 250 Other: Voiding Method Indwelling Catheter Indwelling Catheter Indwelling Catheter GENERAL DESCRIPTION: Elderly female up in the chair, no distress. No tachypnea or accessory muscle of respiration use. HEENT: Shows Pallor , no scleral icterus. Oral mucous membrane is dry. No pharyngeal erythema or thrush NECK: Trachea central, no thyromegaly. LUNGS: Unlabored breathing. Clear to auscultation anteriorly. No wheeze or crackle. HEART: S1, S2, regular rate and rhythm. No loud murmur ABDOMEN: Soft, no tenderness , guarding or rigidity, no organomegaly EXTREMITIES: No edema of feet. SKIN: No rash, no masses palpable. NEUROLOGICAL: The patient is awake, alert, oriented x3, mood and affect normal. Results CBC & Chem 7: 05/14/20 04:08 05/14/20 04:08 Labs: Abnormal Lab Results - Last 24 Hours (Table) 05/14/20 05/14/20 05/14/20 Range/Units 04:08 04:08 07:18 RBC 2.76 L (3.80-5.40) m/uL Hgb 8.5 L (11.4-16.0) gm/dL Hct 28.8 L (34.0-46.0) % MCV 104.5 H (80.0-100.0) fL MCHC 29.3 L (31.0-37.0) g/dL Plt Count 109 L (150-450) k/uL Carbon Dioxide 32 H (22-30) mmol/L BUN 21 H (7-17) mg/dL Creatinine 1.46 H (0.52-1.04) mg/dL Glucose 140 H (74-99) mg/dL POC Glucose (mg/dL) 118 H (75-99) mg/dL Calcium 7.7 L (8.4-10.2) mg/dL 05/14/20 Range/Units 16:55 RBC (3.80-5.40) m/uL Hgb (11.4-16.0) gm/dL Hct (34.0-46.0) % MCV (80.0-100.0) fL MCHC (31.0-37.0) g/dL Plt Count (150-450) k/uL Carbon Dioxide (22-30) mmol/L BUN (7-17) mg/dL Creatinine (0.52-1.04) mg/dL Glucose (74-99) mg/dL POC Glucose (mg/dL) 129 H (75-99) mg/dL Calcium (8.4-10.2) mg/dL Microbiology - Last 24 Hours (Table) 05/11/20 13:58 Blood Culture - Preliminary Blood No Growth after 72 hours Assessment and Plan Assessment: 1- patient with VRE positive stool urine culture and depression who did have a chronic indwelling Peoples catheter with a question of possible Peoples colonization versus symptomatic urinary tract infection 2- patient was diarrhea or hematochezia with evidence of transverse colon and splenic flexure colitis high clinical suspicious for ischemic colitis, stool for C. diff is negative 3- Patient with multiple antibiotic ALLERGIES that would limit the number of ant ibiotic safe to use (1) Colitis Current Visit: No Status: Acute Code(s): K52.9 - NONINFECTIVE GASTROENTERIT IS AND COLITIS, UNSPECIFIED SNOMED Code(s): 22612277 (2) Urinary tract infection Current Visit: No Status: Acute Code(s): N39.0 - URINARY TRACT INFECTION, SITE NOT SPECIFIED SNOMED Code(s): 75367529 Plan: 1- change Peopels catheter and obtain urine culture from the new Peoples 2- obtained stool cultures 3- daptomycin 4 mg per kg daily while waiting for for repeat urine culture finalized 4- oral Cipro and Flagyl to cover for possible ischemic colitis We will follow on clinical condition and cultures to further adjust medication if needed Thank you for this consultation will follow this patient with you Time with Patient: Greater than 30
[2020-05-15] MEDS: SODIUM CHLORIDE 0.9% 1,000 ML IV SCH ×3 (04:24→23:54)
[2020-05-15 04:59] LABS: HCT 27.4 % (34.0-46.0); Hypochromasia Marked; MCH 30.6 pg (25.0-35.0); MCHC 29.2 g/dL (31.0-37.0); MCV 104.7 fL (80.0-100.0); Macrocytosis Moderate; Mean Platelet Volume 10.7; Platelet Count 118 k/uL (150-450); RBC 2.62 m/uL (3.80-5.40); RDW 15.5 % (11.5-15.5); WBC 6.1 k/uL (3.8-10.6)
[2020-05-15 05:08] LABS: Calcium 7.8 mg/dL (8.4-10.2); Potassium 3.2 mmol/L (3.5-5.1)
[2020-05-15] MEDS ORDERED: POTASSIUM CHLORIDE ER 20 MEQ TAB.ER PO SCH (06:00)
[2020-05-15 06:35] LABS: Appearance,Urine Cloudy (Clear); Bacteria,Urine Rare /hpf; Bilirubin,Urine Negative (Negative); Blood,Urine Small (Negative); Color,Urine Yellow; Glucose,Urine (UA) Negative (Negative); Ketones,Urine Negative (Negative); Leukocyte Esterase,Urine Large (Negative); Nitrite,Urine Negative (Negative); PH, Urine 6.5 (5.0-8.0); Protein,Urine Trace (Negative); RBC,Urine 16 /hpf (0-5); Specific Gravity,Urine 1.007 (1.001-1.035); Squamous Epithelial Cell,Urine 1 /hpf (0-4); Urobilinogen,Urine <2.0 mg/dL (<2.0); WBC,Urine >182 /hpf (0-5)
[2020-05-15] MEDS: HYDROCORTISONE 10 MG TAB PO SCH ×2 (07:01→17:06)
[2020-05-15] MEDS: LEVOTHYROXINE 88 MCG TAB PO SCH (07:02)
--- NOTE | 2020-05-15 08:33 | P.PN ---
Subjective Progress Note Date: 05/15/20 Principal diagnosis: Atrial fibrillation This is a pleasant 74-year-old female past medical history significant for asthma, fibromyalgia, frequent bladder inflammation, hypertension, rheumatoid arthritis, obstructive sleep apnea, colitis with complications with possible fistula and frequent bouts of colitis who presented with new onset of abdominal pain and diarrhea consistent with her colitis as well as episode of syncope on the toilet. Patient has been on Coumadin for her atrial fibrillation and admits to having more frequent blood in her stool with this bout of colitis. She has been scheduled to have surgery one week from now. While she was sitting on the toilet she had abdominal pain and became nauseated and had syncope. She denies lightheadedness normally and has never had prior syncope. 05/14/2020 Patient mentions she is doing okay. She denies any chest pain or pressure. She remains in atrial fibrillation. Heart rates are predominantly controlled in the 70s to 80s. She does admit to some continued blood in the stool. Her Coumadin and aspirin were stopped due to bleeding. 05/15/2020 Patient seen and examined. Patient remains in A. fib with controlled ventricular responses. She admits she has not had further bowel movements and therefore denies any further leading in her bowels. Her abdominal pain is somewhat improved. No chest pain or pressure. Shortness of breath. She is receiving IV fluids. Creatinine improved to 1.36 from 1.4 yesterday. REVIEW OF SYSTEMS At the time of my exam: CONSTITUTIONAL: Denies fever or chills. CARDIOVASCULAR: Denies chest pain, shortness of breath, orthopnea, PND or palpitations. RESPIRATORY: Denies cough. GASTROINTESTINAL: + abdominal pain, +diarrhea, no constipation, nausea or vomiting. ENDOCRINE: Denies fatigue, weight change, polydipsia or polyurina. GENITOURINARY: + burning, no hematuria HEMATOLOGIC: +anemia, + bleeding. PHYSICAL EXAMINATION Blood pressure 121/72 heart rate 79 afebrile and maintaining oxygen saturation on room air. CONSTITUTIONAL: No apparent distress HEENT: Head is normocephalic. Pupils are equal, round. Sclerae anicteric. Mucous membranes of the mouth are moist. No JVD. No carotid bruit. CHEST EXAMINATION: Lungs are clear to auscultation. No chest wall tenderness is noted on palpation or with deep breathing. HEART EXAMINATION: Regularly irregular rate and rhythm. S1, S2 heard. No murmurs, gallops or rub. ABDOMEN: Soft, +tender. Positive bowel sounds. EXTREMITIES: 2+ peripheral pulses, no lower extremity edema and no calf tenderness. NEUROLOGIC EXAMINATION: Patient is awake, alert and oriented x3. ASSESSMENT 1. Acute GI bleed likely related to her colitis holding anticoagulation and antiplatelets 2. Long-standing persistent atrial fibrillation, previously on Coumadin which is being held 3. Syncope, likely vasovagal as well as dehydration with event occurring on the toilet with increased vagal tone 4. Chronic kidney disease 5. Pulmonary hypertension with RVSP of 45 on prior echo 6. Preserved ejection fraction 50% on echo 04/29/2020 PLAN Your GI care concerning her colitis. Diarrhea appears improved. Patient is scheduled for surgery in 1 week. Continue to hold antiplatelets and Coumadin. Blood pressure appears well controlled and creatinine mildly improving with IV fluids. Monitor volume status. Objective - Vital Signs Vital signs: Vital Signs Temp 97.7 F 05/15/20 04:00 Pulse 66 05/15/20 04:00 Resp 16 05/15/20 04:00 BP 118/58 05/15/20 04:00 Pulse Ox 95 05/15/20 04:00 Intake & Output 05/14/20 05/15/20 05/15/20 18:59 06:59 18:59 Intake Total 750 1300 Output Total 500 775 Balance 250 525 Weight 89.2 kg Intake: IV 750 1300 Sodium Chloride 0.9% 1, 600 1200 000 ml @ 75 mls/hr IV . [id number] [facility] Rx#:[id number] daptomycin 50 metroNIDAZOLE-NS PMX 500 100 100 mg In Saline 1 100ml.bag @ 100 mls/hr IVPB Q8HR [facility] Rx#:[id number] Output: Urine 500 775 Other: Voiding Method Indwelling Catheter Indwelling Catheter - Labs CBC & Chem 7: 05/15/20 04:37 05/15/20 04:37 Labs: Abnormal Lab Results - Last 24 Hours (Table) 05/14/20 05/15/20 05/15/20 Range/Units 16:55 04:37 04:37 RBC 2.62 L (3.80-5.40) m/uL Hgb 8.0 L (11.4-16.0) gm/dL Hct 27.4 L (34.0-46.0) % MCV 104.7 H (80.0-100.0) fL MCHC 29.2 L (31.0-37.0) g/dL Plt Count 118 L (150-450) k/uL Potassium 3.2 L (3.5-5.1) mmol/L Creatinine 1.36 H (0.52-1.04) mg/dL Glucose 137 H (74-99) mg/dL POC Glucose (mg/dL) 129 H (75-99) mg/dL Calcium 7.8 L (8.4-10.2) mg/dL Urine Appearance (Clear) Urine Protein (Negative) Urine Blood (Negative) Ur Leukocyte Esterase (Negative) Urine RBC (0-5) /hpf Urine WBC (0-5) /hpf Urine WBC Clumps (None) /hpf Urine Bacteria (None) /hpf 05/15/20 Range/Units 06:00 RBC (3.80-5.40) m/uL Hgb (11.4-16.0) gm/dL Hct (34.0-46.0) % MCV (80.0-100.0) fL MCHC (31.0-37.0) g/dL Plt Count (150-450) k/uL Potassium (3.5-5.1) mmol/L Creatinine (0.52-1.04) mg/dL Glucose (74-99) mg/dL POC Glucose (mg/dL) (75-99) mg/dL Calcium (8.4-10.2) mg/dL Urine Appearance Cloudy H (Clear) Urine Protein Trace H (Negative) Urine Blood Small H (Negative) Ur Leukocyte Esterase Large H (Negative) Urine RBC 16 H (0-5) /hpf Urine WBC >182 H (0-5) /hpf Urine WBC Clumps Many H (None) /hpf Urine Bacteria Rare H (None) /hpf Microbiology - Last 24 Hours (Table) 05/11/20 13:58 Blood Culture - Preliminary Blood No Growth after 72 hours
[2020-05-15] MEDS: metroNIDAZOLE-NS PMX 500 MG in SALINE 1 100ML.BAG IVPB SCH ×4 (09:14→23:54)
[2020-05-15] MEDS: allopurinoL 100 MG TAB PO SCH ×3 (09:14→21:23)
[2020-05-15] MEDS: BALSALAZIDE DISODIUM 750 MG CAPSULE PO SCH ×2 (09:15→21:22)
[2020-05-15] MEDS: CIPROFLOXACIN HCL 500 MG TAB PO SCH ×2 (09:16→21:23)
[2020-05-15] MEDS: FLUDROCORTISONE 0.1 MG TAB PO SCH ×2 (09:16→21:23)
[2020-05-15] MEDS: DAPTOmycin 350 MG in SODIUM CHLORIDE 0.9% 50 ML IVPB SCH (09:24)
[2020-05-15] MEDS: PREGABALIN 100 MG CAP PO SCH ×2 (09:24→21:22)
[2020-05-15] MEDS: METOPROLOL TARTRATE 25 MG TAB PO SCH ×3 (09:24→21:29)
[2020-05-15] MEDS: POTASSIUM CHLORIDE ER 20 MEQ TAB.ER PO SCH (09:24)
[2020-05-15] MEDS: FERROUS SULFATE 325 MG TAB PO SCH (09:24)
[2020-05-15] MEDS: MULTIVITAMINS, THERA 1 EACH TAB PO SCH (09:24)
--- NOTE | 2020-05-15 12:00 | P.PN ---
Subjective Progress Note Date: 05/15/20 CHIEF COMPLAINT: Syncope and blood in stool HISTORY OF PRESENT ILLNESS:Patient remain in ICU. 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 She is being followed for lower GI bleed. Patient had no further blood in her stools. She did have a bowel movement. C. diff negative. This morning patient had abdominal pain with dizziness. Now improved. She has VRE in the urine and possibly colonization per infectious disease. WBC 6.1 hemoglobin has dropped from 8.5-8.0. magnesium 2.3 PHYSICAL EXAM: VITAL SIGNS: Reviewed. GENERAL: Well-developed in no acute distress. HEENT: No sclera icterus. Extraocular movements grossly intact. Moist buccal mucosa. Head is atraumatic, normocephalic. ABDOMEN: Soft. Mild tenderness to palpation in the left lower quadrant NEUROLOGIC: Alert and oriented. Cranial nerves II through XII grossly intact. ASSESSMENT: 1. Acute lower GI bleed possibly secondary to diverticular bleed or from a rectal prolapse 2. Possible acute colitis likely ischemic also can be contributing to GI bleed 2. Fall with syncope possibly vasovagal 3. History of chronic atrial fibrillation 4. Possible colovesical fistula PLAN: -Patient remains off Coumadin and aspirin -Continue full liquids -Continue monitor hemoglobin -Patient does have a bowel resection surgery for diverticular disease scheduled next week May [address] Sebastián Tran and Arlen for ischemic colitis added by ID Physician Butcher Assistant note has been reviewed by physician. Signing provider agrees with the documented findings, assessment, and plan of care. Objective - Vital Signs Vital signs: Vital Signs Temp 97.7 F 05/15/20 04:00 Pulse 66 05/15/20 04:00 Resp 16 05/15/20 04:00 BP 118/58 05/15/20 04:00 Pulse Ox 95 05/15/20 04:00 Intake & Output 05/14/20 05/15/20 05/15/20 18:59 06:59 18:59 Intake Total 750 1300 Output Total 500 775 Balance 250 525 Weight 89.2 kg Intake: IV 750 1300 Sodium Chloride 0.9% 1, 600 1200 000 ml @ 75 mls/hr IV . [id number] [facility] Rx#:[id number] daptomycin 50 metroNIDAZOLE-NS PMX 500 100 100 mg In Saline 1 100ml.bag @ 100 mls/hr IVPB Q8HR [facility] Rx#:[id number] Output: Urine 500 775 Other: Voiding Method Indwelling Catheter Indwelling Catheter - Labs CBC & Chem 7: 05/15/20 04:37 05/15/20 04:37 Labs: Abnormal Lab Results - Last 24 Hours (Table) 05/14/20 05/15/20 05/15/20 Range/Units 16:55 04:37 04:37 RBC 2.62 L (3.80-5.40) m/uL Hgb 8.0 L (11.4-16.0) gm/dL Hct 27.4 L (34.0-46.0) % MCV 104.7 H (80.0-100.0) fL MCHC 29.2 L (31.0-37.0) g/dL Plt Count 118 L (150-450) k/uL Potassium 3.2 L (3.5-5.1) mmol/L Creatinine 1.36 H (0.52-1.04) mg/dL Glucose 137 H (74-99) mg/dL POC Glucose (mg/dL) 129 H (75-99) mg/dL Calcium 7.8 L (8.4-10.2) mg/dL Urine Appearance (Clear) Urine Protein (Negative) Urine Blood (Negative) Ur Leukocyte Esterase (Negative) Urine RBC (0-5) /hpf Urine WBC (0-5) /hpf Urine WBC Clumps (None) /hpf Urine Bacteria (None) /hpf 05/15/20 Range/Units 06:00 RBC (3.80-5.40) m/uL Hgb (11.4-16.0) gm/dL Hct (34.0-46.0) % MCV (80.0-100.0) fL MCHC (31.0-37.0) g/dL Plt Count (150-450) k/uL Potassium (3.5-5.1) mmol/L Creatinine (0.52-1.04) mg/dL Glucose (74-99) mg/dL POC Glucose (mg/dL) (75-99) mg/dL Calcium (8.4-10.2) mg/dL Urine Appearance Cloudy H (Clear) Urine Protein Trace H (Negative) Urine Blood Small H (Negative) Ur Leukocyte Esterase Large H (Negative) Urine RBC 16 H (0-5) /hpf Urine WBC >182 H (0-5) /hpf Urine WBC Clumps Many H (None) /hpf Urine Bacteria Rare H (None) /hpf Microbiology - Last 24 Hours (Table) 05/15/20 06:00 Urine Culture - Preliminary Urine,Voided 05/11/20 13:58 Blood Culture - Preliminary Blood No Growth after 72 hours
--- NOTE | 2020-05-15 15:53 | PN ---
PROGRESS NOTE DATE OF SERVICE: 05/15/2020 This 74-year-old woman was admitted with multiple medical problems, including severe weakness, syncope and abdominal pain. The patient also had apparent GI bleed and CT scan showed possible colitis involving the distal transverse colon and splenic flexure, being treated symptomatically. The patient also had recent urological procedure. The patient also had VRE UTI and the patient had persistent pyuria. Multiple consultants are following the patient, including Gastroenterology, Urology and Surgery. CT scan has been reviewed. Dr. Lowery is planning colectomy for a possible colovesical fistula. The recent biopsies showed no evidence of malignancy. Past medical history reviewed. Today the patient had episodes of dizziness, very short-lasting, and not feeling well, according to her. REVIEW OF SYSTEMS: CARDIOVASCULAR SYSTEM: No angina, palpitations. RESPIRATORY SYSTEM: As mentioned earlier. GI: As mentioned earlier. : No dysuria or retention. NERVOUS SYSTEM: No numbness, weakness. CURRENT MEDICATIONS: Reviewed. They include Tylenol No.3, Zyloprim, Colazal, Cipro, daptomycin, iron sulfate, florinef, Cortef, Synthroid, Imodium, Lopressor, magnesium, Protonix, K-Dur, Lyrica. PHYSICAL EXAMINATION: Patient is alert, oriented x3. Pulse is 66, blood pressure 119/58, respirations 16, temperature 97.7, pulse ox 94% on CPAP. HEENT: Conjunctivae normal. Oral mucosa moist. NECK: No jugular venous distention. No carotid bruit. No lymph node enlargement. CARDIOVASCULAR SYSTEM: S1, S2 muffled. RESPIRATORY SYSTEM: Breath sounds diminished at the bases. A few scattered rhonchi. No crackles. ABDOMEN: Soft, non-tender. No mass palpable. LEGS: No edema. No swelling. NERVOUS SYSTEM: Higher functions as mentioned earlier. Moves all 4 limbs. No focal motor or sensory deficit. LYMPHATICS: No lymph node palpable in neck, axillae or groin. SKIN: No ulcer, rash, bleeding. JOINTS: No active deforming arthropathy. LABS: WBC 6.1, hemoglobin is 8, platelets 118. Sodium is 140, potassium 3.2, creatinine 1.36 and calcium 7.8. ASSESSMENT: 1. Fall and syncope, possibly orthostatic hypotension. Rule out transient ischemic attack. 2. Acute gastrointestinal bleed secondary to acute colitis, possibly ischemic colitis or infectious colitis in the distal transverse colon and splenic flexure. 3. Severe hypokalemia secondary to diarrhea. 4. Vancomycin-resistant Enterococcus urinary tract infection. 5. Possible colovesical fistula. 6. Megan albicans in the urine and recurrent urinary tract infections. 7. Chronic kidney disease, stage 3. 8. History of recent cystoscopy; biopsy showing no evidence of malignancy. 9. Hyponatremia. 10.History of previous colonoscopy and colitis. 11.Increased white count. 12.Anemia, macrocytic. 13.Thrombocytopenia. 14.Elevated bilirubin and increased AST. 15.Hypoalbuminemia. 16.Hematuria. 17.History of asthma. 18.History of fibromyalgia. 19.Hypertension. 20.History of degenerative joint disease. 21.History of recent renal failure. 22.History of rheumatoid arthritis. 23.History of suspected adrenal insufficiency. 24.History of sleep apnea. 25.History of intermittent bronchial asthma. 26.History of chronic atrial fibrillation. 27.Diabetes mellitus, type 2. 28.Obesity. 29.Left tibial plateau fracture history. 30.History of inflammatory bowel disorder. 31.History of post-polio syndrome. 32.History of hypothyroidism. 33.History of questionable tumor next to the pituitary gland. 34.History of cholecystectomy. 35.History of hysterectomy. 36.History of cardioversion. 37.L3-4 lumbar laminectomy history. 38.History of depression. 39.FULL CODE. RECOMMENDATIONS AND DISCUSSION: I recommend to continue current medications, continue with the monitoring, symptomatic treatment. This is a patient with multiple complex medical issues. I would also recommend continuing neuro checks, CT scan of the brain and neurology evaluation also because of the symptoms noted this morning. Otherwise, will continue the antibiotics which have been by Infectious Disease. Urology has seen the patient. As mentioned, Dr. Lwoery is planning possible colectomy for possible colovesical fistula. The patient also a history of diverticulitis. Overall prognosis is extremely guarded because of the above-mentioned multiple complex medical issues, and further recommendations to follow. Discussed with the patient. Will supplement potassium. LINDA / AMYN: [id number] / MTDD
--- NOTE | 2020-05-15 16:50 | CT ---
EXAMINATION TYPE: CT brain wo con DATE OF EXAM: 05/15/2020 COMPARISON: None HISTORY: 74-year-old female with confusion, rule out TIA TECHNIQUE: Examination was done in axial plane without intravenous contrast. Coronal and sagittal r econstructions performed. CT DLP: 1099.4 mGycm Automated exposure control for dose reduction was used. FINDINGS: There is no evidence of acute intracranial hemorrhage, acute ischemic changes, mass effect, or extra -axial fluid collection. There is no effacement of cerebral sulci or basal subarachnoid cisterns. T here is no hydrocephalus. There is no midline shift. Vidal-white matter distinction is preserved. There is nodular enlargement of the pituitary gland measuring 9 mm craniocaudal and 9 mm wide. Sellar MRI can further evaluate. Mild bifrontal volume loss. Mild patchy periventricular white matter hypodensities. Paranasal sinuses and mastoid air cells well pneumatized. Visualized orbits and globes are intact. IMPRESSION: 1. Mild bifrontal atrophy and changes of chronic small vessel ischemic disease. No acute intracranial abnormality seen. 2. Pituitary enlargement measuring up to 9 mm craniocaudal. Sellar MRI can further evaluate such as f or underlying adenoma.
--- NOTE | 2020-05-15 19:51 | PN ---
PROGRESS NOTE DATE OF SERVICE: 05/15/2020 HISTORY OF PRESENT ILLNESS: The patient is a 74-year-old pleasant white female admitted to the hospital with acute colitis with lower abdominal pain and bloody diarrhea. She is doing better. No bowel movements for the last 2 days. Abdominal pain has improved on a regular diet and tolerating well. PHYSICAL EXAMINATION: Appears comfortable, no apparent distress. VITAL SIGNS: Stable. Blood pressure 133/97, pulse rate 77, temperature 98. HEENT: Examination unremarkable. Conjunctivae are pink. Sclerae anicteric. Oral cavity no lesions. NECK: No JVD or lymph node enlargement. CHEST: Clear to auscultation. HEART: Regular rate and rhythm. ABDOMEN: Soft. It was nontender, nondistended. Bowel sounds are positive. No organomegaly. EXTREMITIES: No pedal edema. NEURO: She is alert and oriented x3. No focal deficits. LABS: WBC 6.1, hemoglobin 8, platelets 118. Basic metabolic panel, BUN 16, creatinine 1.36. IMPRESSION: 1. Acute colitis, improving. Remains on broad-spectrum antibiotics. 2. Recent episode of diverticulitis for which Dr. Lowery is following the patient closely and she is scheduled for a sigmoid colectomy electively next week. 3. History of collagenous colitis. 4. History of hypertension. 5. Chronic kidney disease. RECOMMENDATIONS: 1. Advance diet as tolerated. 2. Continue antibiotics. 3. Monitor CBC on a daily basis. We will follow with you. Thank you for this consultation. MMODL / IJN: [id number] /
--- NOTE | 2020-05-15 20:51 | US ---
EXAMINATION TYPE: US carotid duplex BILAT DATE OF EXAM: 05/15/2020 COMPARISON: NONE CLINICAL HISTORY: carotid stenosis. Patient states being dizzy EXAM MEASUREMENTS: RIGHT: Peak Systolic Velocity (PSV) cm/sec ----- Right CCA: 58.1 ----- Right ICA: 117.7 ----- Right ECA: 71.1 ICA/CCA ratio: 2.0 RIGHT: End Diastole cm/sec ----- Right CCA: 26.7 ----- Right ICA: 41.8 ----- Right ECA: 12.8 LEFT: Peak Systolic Velocity (PSV) cm/sec ----- Left CCA: 66.9 ----- Left ICA: 109.2 ----- Left ECA: 9.0 ICA/CCA ratio: 1.6 LEFT: End Diastole cm/sec ----- Left CCA: 26.3 ----- Left ICA: 39.7 ----- Left ECA: 9.0 VERTEBRALS (direction of flow): Right Vertebral: Antegrade Left Vertebral: Antegrade Rhythm: Arrhythmia Right CCA significant stenosis. Plaque seen in right bulb. No elevated velocities. IMPRESSION: There is antegrade flow in the vertebral arteries. There is irregular plaque in the right common araujo tid artery with estimated 50% stenosis. Images and measurements suggest 50% stenosis in both internal carotid arteries. There is antegrade flow in the vertebral arteries. Criteria for Assigning % of Stenosis / Diameter reduction (Estimation based on the indirect measurements of the internal carotid artery velocities (ICA PSV). 1. Normal (no stenosis)=ICA PSV < 125 cm/s: ratio < 2.0: ICA EDV<40 cm/s. 2. Less than 50% stenosis=ICA PSV < 125 cm/s: ratio < 2.0: ICA EDV<40 cm/s. 3. 50 to 69% stenosis=ICA PSV of 125 to 230 cm/s: ration 2.0 ? 4.0: ICA EDV 40-100 cm/s. 4. Greater than 70% stenosis to near occlusion= ICA PSV > 230 cm/s: ratio > 4.0: ICA EDV > 100 cm/s. 5. Near occlusion= ICA PSV velocities may be low or undetectable: variable ratio and ICA EDV. 6. Total occlusion=unable to detect flow.
--- NOTE | 2020-05-16 01:27 | PN ---
PROGRESS NOTE DATE OF SERVICE: 05/15/2020 REASON FOR FOLLOWUP: 1. Colitis, possible ischemic. 2. Catheter associated urinary tract infection. INTERVAL HISTORY: The patient is currently afebrile. Patient is breathing comfortably. Denies having any chest pain or shortness of breath or cough. Abdominal pain has improved and diarrhea has slowed down. Some nausea, but no vomiting. Peoples catheter has been changed. PHYSICAL EXAMINATION: Blood pressure 135/97, pulse of 77, temperature 98. She is 97% on room air. General description is an elderly female up in the chair in no distress. RESPIRATORY SYSTEM: Unlabored breathing, decreased breath sounds in the bases, no wheeze. HEART: S1, S2. Regular rate and rhythm. ABDOMEN: Soft. No tenderness. LABS: Hemoglobin 8 with white count 6.1. BUN of 16, creatinine 1.36. Repeat UA is positive. DIAGNOSTIC IMPRESSION AND PLAN: 1. Patient with diarrhea, hematochezia with evidence of colitis, transverse colon and splenic flexure, concern for possible ischemic colitis. Covered with Cipro and Flagyl to continue. 2. VRE urinary tract infection, catheter associated. Peoples catheter has been changed. Repeat UA still positive to continue with daptomycin. MMODL / IJN: [id number] /
[2020-05-16] MEDS: LEVOTHYROXINE 88 MCG TAB PO SCH (06:37)
[2020-05-16] MEDS: HYDROCORTISONE 10 MG TAB PO SCH ×2 (06:37→17:10)
--- NOTE | 2020-05-16 07:59 | P.PN ---
Subjective Progress Note Date: 05/16/20 Principal diagnosis: Atrial fibrillation This is a pleasant 74-year-old female past medical history significant for asthma, fibromyalgia, frequent bladder inflammation, hypertension, rheumatoid arthritis, obstructive sleep apnea, colitis with complications with possible fistula and frequent bouts of colitis who presented with new onset of abdominal pain and diarrhea consistent with her colitis as well as episode of syncope on the toilet. Patient has been on Coumadin for her atrial fibrillation and admits to having more frequent blood in her stool with this bout of colitis. She has been scheduled to have surgery one week from now. While she was sitting on the toilet she had abdominal pain and became nauseated and had syncope. She denies lightheadedness normally and has never had prior syncope. 05/14/2020 Patient mentions she is doing okay. She denies any chest pain or pressure. She remains in atrial fibrillation. Heart rates are predominantly controlled in the 70s to 80s. She does admit to some continued blood in the stool. Her Coumadin and aspirin were stopped due to bleeding. 05/15/2020 Patient seen and examined. Patient remains in A. fib with controlled ventricular responses. She admits she has not had further bowel movements and therefore denies any further leading in her bowels. Her abdominal pain is somewhat improved. No chest pain or pressure. Shortness of breath. She is receiving IV fluids. Creatinine improved to 1.36 from 1.4 yesterday. 05/16/2020 Patient seen and examined. Patient admits she feels much improved today. Abdominal pain somewhat improved. She denies any blood in the stool today. Awaiting further GI and surgical workup/treatment. She remains in A. fib with controlled ventricular rate. A CT of the brain and carotid Dopplers were ordered secondary to episodes of dizziness and not feeling well yesterday. The CT brain showed no acute processes and carotid Doppler showed 50% stenosis bilaterally. REVIEW OF SYSTEMS At the time of my exam: CONSTITUTIONAL: Denies fever or chills. CARDIOVASCULAR: Denies chest pain, shortness of breath, orthopnea, PND or palpitations. RESPIRATORY: Denies cough. GASTROINTESTINAL: + abdominal pain improving, diarrhea is improving, no constipation, nausea or vomiting. ENDOCRINE: Denies fatigue, weight change, polydipsia or polyurina. GENITOURINARY: + burning, no hematuria HEMATOLOGIC: +anemia, + bleeding. PHYSICAL EXAMINATION Blood pressure 110/55 heart rate 70 afebrile and maintaining oxygen saturation on room air. CONSTITUTIONAL: No apparent distress HEENT: Head is normocephalic. Pupils are equal, round. Sclerae anicteric. Mucous membranes of the mouth are moist. No JVD. No carotid bruit. CHEST EXAMINATION: Lungs are clear to auscultation. No chest wall tenderness is noted on palpation or with deep breathing. HEART EXAMINATION: Regularly irregular rate and rhythm. S1, S2 heard. No murmurs, gallops or rub. ABDOMEN: Soft, non-tender. Positive bowel sounds. EXTREMITIES: 2+ peripheral pulses, no lower extremity edema and no calf tenderness. NEUROLOGIC EXAMINATION: Patient is awake, alert and oriented x3. ASSESSMENT 1. Acute GI bleed likely related to her colitis holding anticoagulation and antiplatelets 2. Long-standing persistent atrial fibrillation, previously on Coumadin which is being held 3. Syncope, likely vasovagal as well as dehydration with event occurring on the toilet with increased vagal tone 4. Chronic kidney disease 5. Pulmonary hypertension with RVSP of 45 on prior echo 6. Preserved ejection fraction 50% on echo 04/29/2020 7. Carotid artery stenosis of 50% from carotid ultrasound 05/15/2020 PLAN She admits she is feeling much better. We have been holding her Coumadin and aspirin. Her A. fib has been well controlled with Lopressor 25 3 times a day. Continue with current regimen. Continue to hold Coumadin and aspirin until definitive therapy by surgery which is expected in 1 week. Patient should then resume her Coumadin and aspirin. Do not see any evidence to suggest dizziness yesterday related to her atrial fibrillation or arrhythmia. Asymptomatic carotid artery stenosis of 50% which can be followed outpatient, no therapy indicated at this time. No further recommendations per cardiology. Please call with any questions. Objective - Vital Signs Vital signs: Vital Signs Temp 97.9 F 05/16/20 04:00 Pulse 70 05/16/20 04:00 Resp 18 05/16/20 04:00 BP 110/55 05/16/20 04:00 Pulse Ox 94 L 05/16/20 04:00 Intake & Output 05/15/20 05/16/20 05/16/20 18:59 06:59 18:59 Intake Total 1050 1300 Output Total 550 1300 Balance 500 0 Weight 93.7 kg Intake: IV 750 1300 DAPTOmycin 350 mg In 50 Sodium Chloride 0.9% 50 ml @ 100 mls/hr IVPB Q24HR [facility] Rx#:[id number] Sodium Chloride 0.9% 1, 600 1200 000 ml @ 75 mls/hr IV . [id number] [facility] Rx#:[id number] metroNIDAZOLE-NS PMX 500 100 100 mg In Saline 1 100ml.bag @ 100 mls/hr IVPB Q8HR [facility] Rx#:[id number] Oral 300 Output: Urine 550 1300 Other: Voiding Method Indwelling Catheter Indwelling Catheter - Labs CBC & Chem 7: 05/15/20 04:37 05/15/20 04:37 Labs: Microbiology - Last 24 Hours (Table) 05/15/20 17:56 Stool Culture - Preliminary Stool 05/11/20 13:58 Blood Culture - Preliminary Blood No Growth after 96 hours 05/15/20 06:00 Urine Culture - Preliminary Urine,Voided
[2020-05-16] MEDS: metroNIDAZOLE-NS PMX 500 MG in SALINE 1 100ML.BAG IVPB SCH (08:18)
[2020-05-16] MEDS: POTASSIUM CHLORIDE ER 20 MEQ TAB.ER PO SCH ×4 (08:19→13:23)
[2020-05-16] MEDS: FERROUS SULFATE 325 MG TAB PO SCH (08:19)
[2020-05-16] MEDS: PREGABALIN 100 MG CAP PO SCH ×2 (08:19→20:46)
[2020-05-16] MEDS: METOPROLOL TARTRATE 25 MG TAB PO SCH ×3 (08:19→22:20)
[2020-05-16] MEDS: allopurinoL 100 MG TAB PO SCH ×3 (08:19→22:20)
[2020-05-16] MEDS: MULTIVITAMINS, THERA 1 EACH TAB PO SCH (08:19)
[2020-05-16] MEDS: CIPROFLOXACIN HCL 500 MG TAB PO SCH ×2 (08:20→20:46)
[2020-05-16] MEDS: FLUDROCORTISONE 0.1 MG TAB PO SCH ×2 (08:20→20:46)
[2020-05-16] MEDS: BALSALAZIDE DISODIUM 750 MG CAPSULE PO SCH ×2 (08:20→20:46)
[2020-05-16] MEDS: DAPTOmycin 350 MG in SODIUM CHLORIDE 0.9% 50 ML IVPB SCH (08:25)
[2020-05-16 08:28] LABS: Basophils % (A) 0 %; Eosinophils # (A) 0.3 k/uL (0-0.7); Eosinophils % (A) 4 %; HCT 29.8 % (34.0-46.0); HGB 8.7 gm/dL (11.4-16.0); Hypochromasia Marked; Lymphocytes # (A) 1.4 k/uL (1.0-4.8); Lymphocytes % (A) 22 %; MCHC 29.1 g/dL (31.0-37.0); MCV 106.4 fL (80.0-100.0); Macrocytosis Moderate; Mean Platelet Volume 9.7; Monocytes # (A) 0.3 k/uL (0-1.0); Monocytes % (A) 5 %; Neutrophils # (A) 4.2 k/uL (1.3-7.7); Neutrophils % (A) 66 %; Platelet Count 143 k/uL (150-450); RDW 15.2 % (11.5-15.5); WBC 6.3 k/uL (3.8-10.6)
[2020-05-16 08:46] LABS: Albumin 2.5 g/dL (3.5-5.0); Calcium 7.6 mg/dL (8.4-10.2); Total Bilirubin 0.8 mg/dL (0.2-1.3); Total Protein 4.3 g/dL (6.3-8.2)
[2020-05-16 08:53] LABS: Potassium 2.7 mmol/L (3.5-5.1)
--- NOTE | 2020-05-16 09:31 | P.PN ---
Subjective Progress Note Date: 05/16/20 CHIEF COMPLAINT: Syncope and blood in stool HISTORY OF PRESENT ILLNESS: Patient seen and examined with Dr. Lowery. Patient remain in ICU as a Selective overflow. She is being followed for lower GI bleed. Patient had no further blood in her stools. She did have a bowel movement. She is sitting in bedside chair. She is tolerating a full liquid diet. She has VRE in the urine and is on Daptomycin per ID. Hgb 8.7, K 2.7 PHYSICAL EXAM: VITAL SIGNS: Reviewed. GENERAL: Well-developed in no acute distress. HEENT: No sclera icterus. Extraocular movements grossly intact. Moist buccal mucosa. Head is atraumatic, normocephalic. ABDOMEN: Soft. Mild tenderness to palpation in the left lower quadrant NEUROLOGIC: Alert and oriented. Cranial nerves II through XII grossly intact. ASSESSMENT: 1. Acute lower GI bleed possibly secondary to diverticular bleed or from a rectal prolapse 2. Possible acute colitis likely ischemic also can be contributing to GI bleed 2. Fall with syncope possibly vasovagal 3. History of chronic atrial fibrillation 4. Possible colovesical fistula PLAN: -Patient remains off Coumadin and aspirin -Continue full liquids -Continue monitor hemoglobin -Patient does have a bowel resection surgery for diverticular disease scheduled next week May [address] Sebastián Tran and Arlen for ischemic colitis added by ID Physician Die Mounter note has been reviewed by physician. Signing provider agrees with the documented findings, assessment, and plan of care. Objective - Vital Signs Vital signs: Vital Signs Temp 97.9 F 05/16/20 04:00 Pulse 70 05/16/20 04:00 Resp 18 05/16/20 04:00 BP 110/55 05/16/20 04:00 Pulse Ox 94 L 05/16/20 04:00 Intake & Output 05/15/20 05/16/20 05/16/20 18:59 06:59 18:59 Intake Total 1050 1300 Output Total 550 1300 Balance 500 0 Weight 93.7 kg Intake: IV 750 1300 DAPTOmycin 350 mg In 50 Sodium Chloride 0.9% 50 ml @ 100 mls/hr IVPB Q24HR [facility] Rx#:[id number] Sodium Chloride 0.9% 1, 600 1200 000 ml @ 75 mls/hr IV . [id number] [facility] Rx#:[id number] metroNIDAZOLE-NS PMX 500 100 100 mg In Saline 1 100ml.bag @ 100 mls/hr IVPB Q8HR [facility] Rx#:[id number] Oral 300 Output: Urine 550 1300 Other: Voiding Method Indwelling Catheter Indwelling Catheter - Labs CBC & Chem 7: 05/16/20 08:04 05/16/20 08:04 Labs: Abnormal Lab Results - Last 24 Hours (Table) 05/16/20 05/16/20 Range/Units 08:04 08:04 RBC 2.80 L (3.80-5.40) m/uL Hgb 8.7 L (11.4-16.0) gm/dL Hct 29.8 L (34.0-46.0) % MCV 106.4 H (80.0-100.0) fL MCHC 29.1 L (31.0-37.0) g/dL Plt Count 143 L (150-450) k/uL Potassium 2.7 L* (3.5-5.1) mmol/L Chloride 110 H (98-107) mmol/L Creatinine 1.31 H (0.52-1.04) mg/dL Glucose 196 H (74-99) mg/dL Calcium 7.6 L (8.4-10.2) mg/dL AST 39 H (14-36) U/L Total Protein 4.3 L (6.3-8.2) g/dL Albumin 2.5 L (3.5-5.0) g/dL Microbiology - Last 24 Hours (Table) 05/15/20 17:56 Stool Culture - Preliminary Stool 05/11/20 13:58 Blood Culture - Preliminary Blood No Growth after 96 hours 05/15/20 06:00 Urine Culture - Preliminary Urine,Voided
--- NOTE | 2020-05-16 10:52 | P.CNNES ---
History of Present Illness Consult date: 05/15/20 Requesting physician: Sury Collins Reason for Consult: Rule out TIA History of Present Illness: Patient is a 74-year-old female admitted to the hospital on 05/11/2020 for near syncopal event. Patient woke up that day not feeling well, went to the toilet, then became lightheaded, dizzy diaphoretic and almost passed out. EMS was called and patient was brought to the hospital. Patient was diagnosed with acute lower GI bleed possibly secondary to diverticular bleed or from rectal prolapse. Possible acute colitis likely ischemic also contributing to GI bleed. Patient has history of chronic atrial fibrillation. Patient was on Coumadin prior to arrival. Patient's INR at the time of arrival on 05/11/2020 was 1.7. Coumadin has been held after arrival. Patient currently not on any anticoagulants or antiplatelets. 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 Neurology was consulted to rule out TIAs. Patient states that she gets dizzy when she stands up. She is careful, does not take the step right away. Today she was feeling off balance. Patient states that today she was sitting, eating breakfast, suddenly felt will pass out. She went to sleep, and slept for a couple hours. When she woke up, it was hard to move. Patient denies any slurred speech facial droop double vision, loss of vision, focal numbness tingling or weakness. Patient also is on Lyrica for periodic limb movements for which she follows up with Dr. Lincoln. Patient had a computed tomography scan of head, which revealed mild bifrontal atrophy and changes of chronic small vessel ischemic disease. No acute intracranial process. Pituitary enlargement measuring up to 9 mm craniocaudal. Sellar MRI can further evaluate such as for underlying adenoma. Doppler from 05/15/2020 showed antegrade flow in both vertebral arteries. There is a regular block in the right common carotid artery with estimated 50% stenosis. 50% stenosis in both ICAs. 2-D echo on 05/03/2020 showed normal left ventricular size. Mild concentric LVH. EF is 45-50%. Another 2-D echo from 04/29/2020, which revealed normal left ventricular size, borderline concentric LVH. EF is 50-55%. Normal left atrial size. Mild to moderate TR. Mild to moderate pulmonary hypertension. Patient's EKG on 05/12/2020 showed atrial fibrillation with rapid ventricular rate. patient's blood tests shows WBC 6.1 hemoglobin 8.0 and platelets are 118. BUN 16, creatinine 1.36. Potassium 3.2, AST is 38, ALT 11. Review of Systems As above in detail. All other 14 point of review of systems reviewed and are unremarkable. Patient does have GI bleed. Denies chest pain shortness of breath wheezing or cough. 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 "Dr. Abdi Riggs fixed a hole in my heart". Cardioversion. L3-4 lumber laminectomy. per pt she is to have a bowel resection on 05/21/20 Past Anesthesia/Blood Transfusion Reactions: Motion Sickness, Postoperative Nausea & Vomiting (PONV) Additional Past Anesthesia/Blood Transfusion Reaction / Comment(s): has letter from "post polio with anesthesia recommendations" pt to bring with her. "takes long time to come out of anesthesia" Past Psychological History: Depression Smoking Status: Never smoker Past Alcohol Use History: Occasional Past Drug Use History: None Reported - Past Family History Father Family Medical History: Myocardial Infarction ([place]) Mother Family Medical History: Cancer Additional Family Medical History / Comment(s): Suspected. Medications and Allergies Home Medications Medication Instructions Recorded Confirmed Type Levothyroxine Sodium [Synthroid] 88 mcg PO DAILY 04/08/14 05/11/20 History Loperamide [Imodium] 4 mg PO DAILY PRN 04/08/14 05/11/20 History Mesalamine [Lialda] 1.2 gm PO BID 04/08/14 05/11/20 History Acetaminophen [Tylenol Extra 500 mg PO DAILY PRN 08/01/18 05/11/20 History Strength] Omeprazole [PriLOSEC] 20 mg PO AC-BRKFST PRN 08/01/18 05/11/20 History allopurinoL [Zyloprim] 100 mg PO TID 08/01/18 05/11/20 History Pregabalin [Lyrica] 200 mg PO BID 08/08/18 05/11/20 History Diphenox-Atrop 2.5-0.025 mg 2 tab PO TID-W/MEALS PRN 11/08/19 05/11/20 History [Lomotil] Ferrous Sulfate [Iron (65 MG 325 mg PO DAILY 11/08/19 05/11/20 History Elemental)] Fluticasone Nasal [place] [Flonase 2 spr EA NOSTRIL DAILY PRN 11/08/19 05/11/20 History Nasal [place]illa] Keybiotics 1 tab PO DAILY 11/08/19 05/11/20 History Multivitamins, Thera [Multivitamin 1 tab PO DAILY 04/28/20 05/11/20 History (formulary)] Warfarin [Coumadin] 2 mg PO DAILY 04/28/20 05/11/20 History Warfarin [Coumadin] 3 mg PO DIRECTED 04/28/20 05/11/20 History Furosemide [Lasix] 40 mg PO DAILY 30 Days #30 tab 05/05/20 05/11/20 Rx Hydrocortisone [Cortef] 10 mg PO BID 30 Days #60 tab 05/05/20 05/11/20 Rx Phenazopyridine [Pyridium] 200 mg PO TID 30 Days #90 tab 05/05/20 05/11/20 Rx Potassium Chloride ER [K-Dur 20] 20 meq PO DAILY 30 Days #30 05/05/20 05/11/20 Rx tab.er.prt Acetaminophen-Codeine 300-30mg 1 - 2 tab PO Q4H PRN 05/11/20 05/11/20 History [Tylenol w/codeine #3] Allergies Allergy/AdvReac Type Severity Reaction Status Date / Time nitrofurantoin Allergy Severe Rash/Hives Verified 05/11/20 15:48 [From Macrobid] nitrofurantoin Allergy Severe Rash/Hives Verified 05/11/20 15:48 macrocrystalline [From Macrobid] sulfamethoxazole Allergy Severe Rash/Hives Verified 05/11/20 15:48 [From Bactrim] trimethoprim [From Bactrim] Allergy Severe Rash/Hives Verified 05/11/20 15:48 hydromorphone HCl AdvReac Severe Nausea & Verified 05/11/20 15:48 [From Dilaudid] Vomiting Physical Examination - Vital Signs Vital Signs: Vital Signs Temp Pulse Resp BP Pulse Ox 05/15/20 04:00 97.7 F 66 16 118/58 95 05/15/20 00:00 97.8 F 79 12 121/72 96 05/14/20 20:00 97.9 F 77 16 135/88 95 Intake and Output 05/15/20 05/15/20 05/15/20 06:59 14:59 22:59 Intake Total 700 Output Total 525 Balance 175 Intake: IV 700 Sodium Chloride 0.9% 1, 600 000 ml @ 75 mls/hr IV . [id number] [facility] Rx#:[id number] metroNIDAZOLE-NS PMX 500 100 mg In Saline 1 100ml.bag @ 100 mls/hr IVPB Q8HR [facility] Rx#:[id number] Output: Urine 525 Other: Voiding Method Indwelling Catheter Weight 89.2 kg On examination patient is an elderly female, in no acute distress. Patient is alert and awake oriented to time place and person. Speech and language functions are normal. Attention and concentration fund of knowledge is adequate. On cranial nerve examination pupils are round and reactive to light, visual brenner are full on confrontation. Extraocular muscles are intact with no nystagmus. Face is symmetric, tongue protrudes the midline. Palatal elevation and sensation normal. Hearing and shoulder shrug normal on muscle strength testing there is no pronator drift and the strength is normal in arms and legs distally and proximally reflexes are 1+ no ataxia for [id number] testing. Tone and bulk of muscles normal. Gait deferred. No obvious bruit, S1 and S2 audible. Abdomen soft nontender. Chest is clear. Results - Laboratory Findings CBC and BMP: 05/16/20 08:04 05/16/20 08:04 Abnormal Lab Findings: Abnormal Labs 08/16/20 08/16/20 08/16/20 13:58 13:58 13:58 WBC 10.8 H RBC 3.54 L Hgb 10.6 L Hct MCV 102.9 H D MCHC 29.0 L Plt Count 106 L Neutrophils # 9.2 H Lymphocytes # 0.7 L PT 16.3 H INR 1.7 H Sodium Potassium Chloride Carbon Dioxide BUN Creatinine Glucose POC Glucose (mg/dL) Calcium Magnesium Total Bilirubin AST Total Protein Albumin Triglycerides HDL Cholesterol Urine Appearance Urine Protein Urine Blood Urine Nitrite Positive H Ur Leukocyte Esterase Urine RBC 122 H Urine WBC 15 H Urine WBC Clumps Urine Bacteria Rare H Hyaline Casts 4 H Urine Mucus Rare H Urine Yeast (Budding) Occasional H 05/11/20 05/12/20 05/12/20 13:58 07:34 07:34 WBC 13.5 H RBC 3.32 L Hgb 10.0 L Hct MCV 103.4 H MCHC 29.3 L Plt Count 113 L Neutrophils # 11.6 H Lymphocytes # PT INR Sodium 134 L Potassium Chloride 95 L Carbon Dioxide 34 H 38 H BUN 41 H 33 H Creatinine 2.09 H 2.01 H Glucose 162 H 158 H POC Glucose (mg/dL) Calcium 8.2 L 7.5 L Magnesium Total Bilirubin 2.3 H AST 38 H Total Protein 5.3 L Albumin 3.1 L Triglycerides 184 H HDL Cholesterol 31 L Urine Appearance Urine Protein Urine Blood Urine Nitrite Ur Leukocyte Esterase Urine RBC Urine WBC Urine WBC Clumps Urine Bacteria Hyaline Casts Urine Mucus Urine Yeast (Budding) 05/12/20 05/12/20 05/13/20 07:34 13:26 04:48 WBC 11.4 H RBC 3.07 L Hgb 9.0 L Hct 31.4 L MCV 102.3 H MCHC 28.8 L Plt Count 103 L Neutrophils # Lymphocytes # PT 20.7 H INR 2.1 H Sodium Potassium Chloride Carbon Dioxide BUN Creatinine Glucose POC Glucose (mg/dL) 188 H Calcium Magnesium Total Bilirubin AST Total Protein Albumin Triglycerides HDL Cholesterol Urine Appearance Urine Protein Urine Blood Urine Nitrite Ur Leukocyte Esterase Urine RBC Urine WBC Urine WBC Clumps Urine Bacteria Hyaline Casts Urine Mucus Urine Yeast (Budding) 05/13/20 05/13/20 05/13/20 04:48 06:37 12:07 WBC RBC Hgb Hct MCV MCHC Plt Count Neutrophils # Lymphocytes # PT INR Sodium Potassium 3.0 L Chloride Carbon Dioxide 36 H BUN 29 H Creatinine 1.66 H Glucose 133 H POC Glucose (mg/dL) 127 H 164 H Calcium 7.7 L Magnesium Total Bilirubin AST Total Protein Albumin Triglycerides HDL Cholesterol Urine Appearance Urine Protein Urine Blood Urine Nitrite Ur Leukocyte Esterase Urine RBC Urine WBC Urine WBC Clumps Urine Bacteria Hyaline Casts Urine Mucus Urine Yeast (Budding) 05/13/20 05/13/20 05/13/20 16:57 18:57 18:57 WBC 14.6 H RBC 3.04 L Hgb 9.4 L Hct 31.7 L MCV 104.3 H MCHC 29.5 L Plt Count 117 L Neutrophils # Lymphocytes # PT INR Sodium Potassium Chloride Carbon Dioxide BUN Creatinine Glucose POC Glucose (mg/dL) 132 H Calcium Magnesium 1.4 L Total Bilirubin AST Total Protein Albumin Triglycerides HDL Cholesterol Urine Appearance Urine Protein Urine Blood Urine Nitrite Ur Leukocyte Esterase Urine RBC Urine WBC Urine WBC Clumps Urine Bacteria Hyaline Casts Urine Mucus Urine Yeast (Budding) 05/13/20 05/13/20 05/14/20 18:57 20:11 04:08 WBC RBC 2.76 L Hgb 8.5 L Hct 28.8 L MCV 104.5 H MCHC 29.3 L Plt Count 109 L Neutrophils # Lymphocytes # PT INR Sodium Potassium 3.1 L Chloride Carbon Dioxide BUN Creatinine Glucose POC Glucose (mg/dL) 117 H Calcium Magnesium Total Bilirubin AST Total Protein Albumin Triglycerides HDL Cholesterol Urine Appearance Urine Protein Urine Blood Urine Nitrite Ur Leukocyte Esterase Urine RBC Urine WBC Urine WBC Clumps Urine Bacteria Hyaline Casts Urine Mucus Urine Yeast (Budding) 05/14/20 05/14/20 05/14/20 04:08 07:18 16:55 WBC RBC Hgb Hct MCV MCHC Plt Count Neutrophils # Lymphocytes # PT INR Sodium Potassium Chloride Carbon Dioxide 32 H BUN 21 H Creatinine 1.46 H Glucose 140 H POC Glucose (mg/dL) 118 H 129 H Calcium 7.7 L Magnesium Total Bilirubin AST Total Protein Albumin Triglycerides HDL Cholesterol Urine Appearance Urine Protein Urine Blood Urine Nitrite Ur Leukocyte Esterase Urine RBC Urine WBC Urine WBC Clumps Urine Bacteria Hyaline Casts Urine Mucus Urine Yeast (Budding) 05/15/20 05/15/20 05/15/20 04:37 04:37 06:00 WBC RBC 2.62 L Hgb 8.0 L Hct 27.4 L MCV 104.7 H MCHC 29.2 L Plt Count 118 L Neutrophils # Lymphocytes # PT INR Sodium Potassium 3.2 L Chloride Carbon Dioxide BUN Creatinine 1.36 H Glucose 137 H POC Glucose (mg/dL) Calcium 7.8 L Magnesium Total Bilirubin AST Total Protein Albumin Triglycerides HDL Cholesterol Urine Appearance Cloudy H Urine Protein Trace H Urine Blood Small H Urine Nitrite Ur Leukocyte Esterase Large H Urine RBC 16 H Urine WBC >182 H Urine WBC Clumps Many H Urine Bacteria Rare H Hyaline Casts Urine Mucus Urine Yeast (Budding) Assessment and Plan Assessment: * Dizziness with near syncopal symptoms, without any lateralizing symptoms. No definitive clinical evidence of TIA. Symptoms of dizziness may be related to anemia, orthostasis or arrhythmia. * History of atrial fibrillation, came with GI bleed, off anticoagulation at this time. * Hematochezia and diarrhea with evidence of colitis. Possible colovesical fistula. * UTI Plan: * At present, I do not see any definitive clinical evidence of TIAs. Her dizziness possibly related to anemia, orthostasis, or arrhythmia. Patient's 2-D echo from 05/03/2020 showed no evidence of left ventricular or left atrial clot. * Suggest resuming anticoagulation, as early as medically/surgically cleared for stroke prevention related to atrial fibrillation. Consider starting aspirin 81 mg daily, if medically/surgically cleared, until anticoagulation can be resumed. * Patient anticipating surgery for possible underlying gastrointestinal conditions. * Please call neurology if you have any further concerns. We will sign off.
--- NOTE | 2020-05-16 16:18 | P.PN ---
Subjective Progress Note Date: 05/16/20 Patient was seen for a follow-up. Agent is fully alert and awake, in no distress. Denies any syncopal spells, dizziness. States she walked to the bathroom and was not feeling dizzy. Denies any numbness tingling focal weakness. No slurred speech or facial droop. Objective - Vital Signs Vital signs: Vital Signs Temp 97.9 F 05/16/20 04:00 Pulse 70 05/16/20 04:00 Resp 18 05/16/20 04:00 BP 110/55 05/16/20 04:00 Pulse Ox 94 L 05/16/20 04:00 Intake & Output 05/15/20 05/16/20 05/16/20 18:59 06:59 18:59 Intake Total 1050 1300 Output Total 550 1300 Balance 500 0 Weight 93.7 kg Intake: IV 750 1300 DAPTOmycin 350 mg In 50 Sodium Chloride 0.9% 50 ml @ 100 mls/hr IVPB Q24HR [facility] Rx#:[id number] Sodium Chloride 0.9% 1, 600 1200 000 ml @ 75 mls/hr IV . [id number] [facility] Rx#:[id number] metroNIDAZOLE-NS PMX 500 100 100 mg In Saline 1 100ml.bag @ 100 mls/hr IVPB Q8HR [facility] Rx#:[id number] Oral 300 Output: Urine 550 1300 Other: Voiding Method Indwelling Catheter Indwelling Catheter - Exam Patient's mental status, speech and language functions are normal. Cranial nerves are normal. Visual brenner are full. Face is symmetric and tongue protrudes the midline. Muscle strength is normal in the arms and legs. Patient has moderate peripheral edema. No ataxia for [id number] testing tone and bulk of muscles normal. - Labs CBC & Chem 7: 05/16/20 08:04 05/16/20 08:04 Labs: Abnormal Lab Results - Last 24 Hours (Table) 05/16/20 05/16/20 Range/Units 08:04 08:04 RBC 2.80 L (3.80-5.40) m/uL Hgb 8.7 L (11.4-16.0) gm/dL Hct 29.8 L (34.0-46.0) % MCV 106.4 H (80.0-100.0) fL MCHC 29.1 L (31.0-37.0) g/dL Plt Count 143 L (150-450) k/uL Potassium 2.7 L* (3.5-5.1) mmol/L Chloride 110 H (98-107) mmol/L Creatinine 1.31 H (0.52-1.04) mg/dL Glucose 196 H (74-99) mg/dL Calcium 7.6 L (8.4-10.2) mg/dL AST 39 H (14-36) U/L Total Protein 4.3 L (6.3-8.2) g/dL Albumin 2.5 L (3.5-5.0) g/dL Microbiology - Last 24 Hours (Table) 05/11/20 13:58 Blood Culture - Preliminary Blood No Growth after 120 hours 05/15/20 06:00 Urine Culture - Final Urine,Voided Megan albicans 05/15/20 17:56 Stool Culture - Preliminary Stool Assessment and Plan Assessment: * Dizziness with near syncopal symptoms, without any lateralizing symptoms. No definitive clinical evidence of TIA. Symptoms of dizziness may be related to anemia, orthostasis or arrhythmia. * History of atrial fibrillation, came with GI bleed, off anticoagulation at this time. * Hematochezia and diarrhea with evidence of colitis. Possible colovesical fistula. * UTI Plan: * No clinical evidence of TIAs. Her dizziness possibly related to anemia, orthostasis, or arrhythmia. Patient's 2-D echo from 05/03/2020 showed no evid ence of left ventricular or left atrial clot. * Suggest resuming anticoagulation, as early as medically/surgically cleared for stroke prevention related to atrial fibrillation. Consider starting aspirin 81 mg daily, if medically/surgically cleared, until anticoagulation can be resumed. * Patient anticipating surgery for possible underlying gastrointestinal conditions. * Please call neurology if you have any further concerns. We will sign off.
--- NOTE | 2020-05-16 16:44 | P.PN ---
Progress Note - Text Progress Note Date: 05/16/20 The patient has a Peoples catheter in place, draining clear yellow urine. 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 She is scheduled to undergo a colon resection by Dr. Lowery once medically stable. It is my recommendation that the Peoples catheter remain in place until that time, and of course following the procedure to allow time for the bladder to heal. Her bladder function will then be reevaluated. The significance of the finding of interstitial cystitis on bladder biopsies is unclear, and I do not intend to initiate any interstitial cystitis therapy until this reevaluation occurs. Please notify me if I can be of any further ass istance during this hospitalization.
[2020-05-16] MEDS: metroNIDAZOLE 500 MG TAB PO SCH ×2 (17:11→23:02)
--- NOTE | 2020-05-16 17:11 | P.PN ---
Subjective Progress Note Date: 05/16/20 Principal diagnosis: Fall and syncope/orthostatic hypotension Acute GI bleed possibly secondary to acute colitis suspicion for ischemic colitis Severe hypokalemia VRE/fungal UTI Objective - Vital Signs Vital signs: Vital Signs Temp 97.9 F 05/16/20 04:00 Pulse 70 05/16/20 04:00 Resp 18 05/16/20 04:00 BP 110/55 05/16/20 04:00 Pulse Ox 94 L 05/16/20 04:00 Intake & Output 05/15/20 05/16/20 05/16/20 18:59 06:59 18:59 Intake Total 1050 1300 Output Total 550 1300 Balance 500 0 Weight 93.7 kg Intake: IV 750 1300 DAPTOmycin 350 mg In 50 Sodium Chloride 0.9% 50 ml @ 100 mls/hr IVPB Q24HR [facility] Rx#:[id number] Sodium Chloride 0.9% 1, 600 1200 000 ml @ 75 mls/hr IV . [id number] [facility] Rx#:[id number] metroNIDAZOLE-NS PMX 500 100 100 mg In Saline 1 100ml.bag @ 100 mls/hr IVPB Q8HR [facility] Rx#:[id number] Oral 300 Output: Urine 550 1300 Other: Voiding Method Indwelling Catheter Indwelling Catheter - Exam - Constitutional General appearance: Present: average body habitus, cooperative, no acute distress - EENT Eyes: Present: anicteric sclerae, EOMI, PERRLA, normal appearance ENT: Present: hearing grossly normal, normal oropharynx Ears: bilateral: normal - Neck Neck: Present: normal ROM. Absent: lymphadenopathy, rigidity, thyromegaly Carotids: negative: bruit present Thyroid: bilateral: normal size, negative: enlarged, nodule - Respiratory Respiratory: bilateral: CTA, negative: rales, rhonchi, wheezing - Cardiovascular Rhythm: regular Heart sounds: normal: S1, S2 Abnormal Heart Sounds: Absent: systolic murmur, diastolic murmur - Gastrointestinal General gastrointestinal: Present: normal bowel sounds, soft. Absent: diste nded, organomegaly, tenderness - Genitourinary Genitourinary Comment(s): deferred - Integumentary Integumentary: Present: normal turgor. Absent: jaundiced, rash, ulcer - Neurologic Neurologic: Present: CNII-XII intact. Absent: focal deficits - Musculoskeletal Musculoskeletal: Present: gait normal, strength equal bilaterally - Psychiatric Psychiatric: Present: A&O x's 3, appropriate affect, intact judgment & insight - Labs CBC & Chem 7: 05/16/20 08:04 05/16/20 08:04 Labs: Abnormal Lab Results - Last 24 Hours (Table) 05/16/20 05/16/20 Range/Units 08:04 08:04 RBC 2.80 L (3.80-5.40) m/uL Hgb 8.7 L (11.4-16.0) gm/dL Hct 29.8 L (34.0-46.0) % MCV 106.4 H (80.0-100.0) fL MCHC 29.1 L (31.0-37.0) g/dL Plt Count 143 L (150-450) k/uL Potassium 2.7 L* (3.5-5.1) mmol/L Chloride 110 H (98-107) mmol/L Creatinine 1.31 H (0.52-1.04) mg/dL Glucose 196 H (74-99) mg/dL Calcium 7.6 L (8.4-10.2) mg/dL AST 39 H (14-36) U/L Total Protein 4.3 L (6.3-8.2) g/dL Albumin 2.5 L (3.5-5.0) g/dL Microbiology - Last 24 Hours (Table) 05/15/20 17:56 Stool Culture - Preliminary Stool 05/11/20 13:58 Blood Culture - Preliminary Blood No Growth after 96 hours 05/15/20 06:00 Urine Culture - Preliminary Urine,Voided Assessment and Plan Assessment: 1. Fall and syncope; possible orthostatic hypertension; workup has been unremarkable 2. Acute GI bleed/possible ischemic colitis; patient remains on IV Flagyl and Cipro; IDs following; GI on board; we will start patient on clear liquid diet; patient does have history of rectal prolapse and diverticular disease and was scheduled outpatient surgery Dr. Sebastián glynn on 05/21/2020; patient has been evaluated by surgery with possible reevaluation on Tuesday for further plan of care 3. Severe hypokalemia secondary to diarrhea; patient has been supplemented; we will continue to monitor electrolytes closely and supplement as needed 4. Twice a day/fungal UTI; patient is currently on IV daptomycin prior ID recommendations 5. Chronic anemia; at baseline; continue with iron supplement 6. Hypertension; metoprolol 25 mg by mouth 3 times a day 7. Hypothyroidism; levothyroxin 88 MCG daily 8. Peripheral neuropathy; continue with home dose of Lyrica 200 mg twice a day DVT prophylaxis; SCDs CODE STATUS; full code
[2020-05-16] MEDS: SODIUM CHLORIDE 0.9% 1,000 ML IV SCH (17:12)
--- NOTE | 2020-05-16 18:36 | PN ---
PROGRESS NOTE DATE OF DICTATION: 05/16/2020 This patient is a 74-year-old pleasant white female admitted to the hospital with abdominal pain, diarrhea and rectal bleeding. She is doing better, remains in the intensive care unit. She was on a regular diet yesterday, tolerating well. Today diet was changed to clear liquids by Dr. Lowery. She had one bowel movement this morning. PHYSICAL EXAMINATION: She appears comfortable. No apparent distress. Vital signs are stable. Blood pressure is 122/86, pulse rate 82 per minute and afebrile. HEENT examination unremarkable. Conjunctivae pink. Sclerae anicteric. Oral cavity no lesions. NECK: No JVD or lymph node enlargement. CHEST: Clear to auscultation. HEART: Regular rate and rhythm. ABDOMEN: Soft. Bowel sounds are positive. No organomegaly. EXTREMITIES: No pedal edema. NEUROLOGIC: Alert and oriented x3. No focal deficits. LABS: Labs from today show WBC 6.3, hemoglobin 8.7, platelets 143. Potassium is 2.7. Rest of the labs are within normal limits. Creatinine is 1.31. IMPRESSION: 1. Acute colitis, resolved. 2. 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 Lowery for possible sigmoid colectomy early next week. 3. History of hypertension and hyperlipidemia. RECOMMENDATIONS: 1. Continue empiric antibiotics. 2. Monitor CBC daily. 3. Continue with a clear liquid diet. 4. Await surgery early next week. 5. We will follow with you closely. MMODL / IJN: [id number] /
--- NOTE | 2020-05-16 22:17 | PN ---
PROGRESS NOTE DATE OF SERVICE: 05/16/2020 REASON FOR FOLLOWUP: 1. Colitis possibly ischemia. 2. VRE catheter associated urinary tract infection. RECENT HISTORY: The patient is currently afebrile. Patient is breathing comfortably. The patient denies having any chest pain. No shortness of breath or cough. Abdominal pain is currently improved. Did have one loose stools. PHYSICAL EXAMINATION: Blood pressure 118/83 with a pulse of 66, temperature 97.9. She is 96% on room air. General description is an elderly female in the bed in no distress. Respiratory system: Unlabored breathing, clear to auscultation anteriorly. Heart S1, S2. Regular rate and rhythm. Abdomen soft, no tenderness. LABS: Hemoglobin 8.4, white count 6.2, BUN of 10, creatinine 1.31. Repeat urine now showing Megan albicans. DIAGNOSTIC IMPRESSION AND PLAN: 1. Patient with VRE urinary tract infection in this patient currently covered with daptomycin to continue. 2. Patient with colitis, possibly ischemic. Covered with Cipro and Flagyl to continue and will monitor clinical course closely. MMODL / IJN: [id number] /
[2020-05-17] MEDS: SODIUM CHLORIDE 0.9% 1,000 ML IV SCH ×2 (04:40→21:35)
[2020-05-17 05:42] LABS: Basophils # (A) 0.1 k/uL (0-0.2); Basophils % (A) 1 %; Eosinophils # (A) 0.2 k/uL (0-0.7); Eosinophils % (A) 3 %; HCT 28.6 % (34.0-46.0); HGB 8.3 gm/dL (11.4-16.0); Hypochromasia Marked; Lymphocytes # (A) 1.6 k/uL (1.0-4.8); Lymphocytes % (A) 26 %; MCHC 28.8 g/dL (31.0-37.0); Macrocytosis Moderate; Mean Platelet Volume 9.9; Monocytes # (A) 0.4 k/uL (0-1.0); Monocytes % (A) 6 %; Neutrophils # (A) 3.8 k/uL (1.3-7.7); Neutrophils % (A) 61 %; Platelet Count 144 k/uL (150-450); RBC 2.75 m/uL (3.80-5.40); RDW 15.7 % (11.5-15.5); WBC 6.2 k/uL (3.8-10.6)
[2020-05-17 05:55] LABS: Calcium 7.9 mg/dL (8.4-10.2); Potassium 3.3 mmol/L (3.5-5.1)
[2020-05-17] MEDS: HYDROCORTISONE 10 MG TAB PO SCH ×2 (06:49→17:05)
[2020-05-17] MEDS: LEVOTHYROXINE 88 MCG TAB PO SCH (06:51)
[2020-05-17] MEDS: DAPTOmycin 350 MG in SODIUM CHLORIDE 0.9% 50 ML IVPB SCH (09:14)
[2020-05-17] MEDS: POTASSIUM CHLORIDE ER 20 MEQ TAB.ER PO SCH (09:15)
[2020-05-17] MEDS: FLUDROCORTISONE 0.1 MG TAB PO SCH ×2 (09:15→21:34)
[2020-05-17] MEDS: FERROUS SULFATE 325 MG TAB PO SCH (09:15)
[2020-05-17] MEDS: BALSALAZIDE DISODIUM 750 MG CAPSULE PO SCH ×2 (09:15→21:33)
[2020-05-17] MEDS: MULTIVITAMINS, THERA 1 EACH TAB PO SCH (09:15)
[2020-05-17] MEDS: allopurinoL 100 MG TAB PO SCH ×3 (09:16→21:34)
[2020-05-17] MEDS: PREGABALIN 100 MG CAP PO SCH ×2 (09:16→21:34)
[2020-05-17] MEDS: metroNIDAZOLE 500 MG TAB PO SCH ×2 (09:16→17:05)
[2020-05-17] MEDS: CIPROFLOXACIN HCL 500 MG TAB PO SCH ×2 (09:16→21:34)
[2020-05-17] MEDS: METOPROLOL TARTRATE 25 MG TAB PO SCH ×3 (09:16→21:34)
--- NOTE | 2020-05-17 11:01 | P.PN ---
Subjective Progress Note Date: 05/17/20 Principal diagnosis: GI bleed Patient remains in the ICU. Denies pain. Had a nonbloody bowel movement earlier today. Urine is clear. Hemoglobin stable at 8.3. Objective - Vital Signs Vital signs: Vital Signs Temp 97.7 F 05/17/20 08:00 Pulse 70 05/17/20 08:00 Resp 18 05/17/20 08:00 BP 128/87 05/17/20 08:00 Pulse Ox 95 05/17/20 08:00 Intake & Output 05/16/20 05/17/20 05/17/20 18:59 06:59 18:59 Intake Total 1100 1700 415 Output Total 500 1285 350 Balance 600 415 65 Weight 92.9 kg Intake: IV 750 1200 175 DAPTOmycin 350 mg In 50 100 Sodium Chloride 0.9% 50 ml @ 100 mls/hr IVPB Q24HR [facility] Rx#:[id number] Sodium Chloride 0.9% 1, 600 1200 75 000 ml @ 75 mls/hr IV . [id number] [facility] Rx#:[id number] metroNIDAZOLE-NS PMX 500 100 mg In Saline 1 100ml.bag @ 100 mls/hr IVPB Q8HR [facility] Rx#:[id number] Oral 350 500 240 Output: Urine 500 1285 350 Other: Voiding Method Indwelling Catheter Indwelling Catheter # Bowel Movements 1 - Exam Abdomen: Soft, nontender, nondistended - Labs CBC & Chem 7: 05/17/20 04:35 05/17/20 04:35 Labs: Abnormal Lab Results - Last 24 Hours (Table) 05/17/20 05/17/20 Range/Units 04:35 04:35 RBC 2.75 L (3.80-5.40) m/uL Hgb 8.3 L (11.4-16.0) gm/dL Hct 28.6 L (34.0-46.0) % MCV 104.0 H (80.0-100.0) fL MCHC 28.8 L (31.0-37.0) g/dL RDW 15.7 H (11.5-15.5) % Plt Count 144 L (150-450) k/uL Potassium 3.3 L (3.5-5.1) mmol/L Chloride 112 H (98-107) mmol/L Creatinine 1.29 H (0.52-1.04) mg/dL Glucose 126 H (74-99) mg/dL Calcium 7.9 L (8.4-10.2) mg/dL Microbiology - Last 24 Hours (Table) 05/11/20 13:58 Blood Culture - Preliminary Blood No Growth after 120 hours 05/15/20 06:00 Urine Culture - Final Urine,Voided Megan albicans Assessment and Plan (1) Gastrointestinal hemorrhage Narrative/Plan: Patient doing well today. Slowly advance diet further. Monitor hemoglobin. Patient still tentatively scheduled for partial colectomy next week. Current Visit: No Status: Acute Code(s): K92.2 - GASTROINTESTINAL HEMORRHAGE, UNSPECIFIED SNOMED Code(s): 68776927
--- NOTE | 2020-05-17 15:09 | PN ---
PROGRESS NOTE DATE OF SERVICE: 05/17/2020 The patient is a 74-year-old pleasant white female remains in the intensive care unit. She denies any complaints. Abdominal pain has resolved. She had one bowel movement today. No blood in the stool. No nausea. No vomiting. PHYSICAL EXAMINATION: Appears comfortable. VITAL SIGNS: Stable. Blood pressure 128/87, pulse is 70, temperature 97.7. HEENT examination unremarkable. Conjunctivae pink. Sclerae anicteric. Oral cavity no lesions. NECK: No JVD or lymph node enlargement. CHEST was clear auscultation. HEART: Regular rate and rhythm. ABDOMEN: Soft. Bowel sounds are positive. No organomegaly. EXTREMITIES: No edema. LABS: WBC 6.2, hemoglobin 8.3, platelets 144, BUN 8, creatinine 1.29, potassium 3.3. IMPRESSION: 1. Acute colitis with rectal bleeding and diarrhea, resolved. 2. 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 Presently on a clear liquid diet, planning for sigmoid colectomy next week. 3. History of collagenous colitis, doing well with no diarrhea. 4. History of hypertension and hypercholesterolemia. 5. Recent episode of acute diverticulitis. Remains on antibiotics with Flagyl and Cipro. RECOMMENDATIONS: 1. Continue antibiotics. 2. Continue management per surgery. 3. Will sign off at this time. Please call us if needed. Thank you for this consultation. MMCARINAL / IJN: [id number] /
--- NOTE | 2020-05-17 15:55 | PN ---
PROGRESS NOTE DATE OF SERVICE: 05/17/2020 REASON FOR FOLLOWUP: Possible ischemic colitis and VRE urinary tract infection. INTERVAL HISTORY: Patient is currently afebrile. The patient is breathing comfortably. The patient denies having any chest pain. No shortness of breath or cough. No abdominal pain. Still has some diarrhea. No vomiting though. EXAMINATION: Blood pressure 109/70 with a pulse of 68, temperature 97.5. She is 95% on room air. General description: The patient is an elderly female up in the chair in no distress. Respiratory system: Unlabored breathing. Clear to auscultation anteriorly. HEART S1, S2. Regular rate and rhythm. ABDOMEN: Soft, no tenderness. LABS: Hemoglobin 8.1, white count 6.2. BUN of 8, creatinine 1.29. DIAGNOSTIC IMPRESSION AND PLAN: 1. Patient with diarrhea and hematochezia occasional concern for possible C difficile colitis covered on Flagyl. 2. The patient with VRE urinary tract infection, catheter associated, has been covered with daptomycin to continue and monitor clinical course closely. MMODL / IJN: [id number] /
--- NOTE | 2020-05-17 16:32 | P.PN ---
Subjective Progress Note Date: 05/17/20 Principal diagnosis: Fall and syncope/orthostatic hypotension Acute GI bleed possibly secondary to acute colitis suspicion for ischemic colitis Severe hypokalemia VRE/fungal UTI 05/17/2020 Patient is seen and evaluated sitting in bedside chair with family members at bedside; patient does admit to a bowel movement which was nonbloody; hemoglobin remained stable at 8.3; patient remains off of anticoagulation therapy Patient is being followed by surgery with tentative plans to proceed with surgery that was scheduled as an outpatient for Tuesday; patient has been evaluated by neurology with no clinical evidence of a TIA; patient has been suggested to resume anticoagulation therapy then medically/surgically cleared for stroke prevention in view of atrial fibrillation Objective - Vital Signs Vital signs: Vital Signs Temp 97.9 F 05/17/20 04:00 Pulse 74 05/17/20 04:00 Resp 14 05/17/20 04:00 BP 109/77 05/17/20 04:00 Pulse Ox 94 L 05/17/20 04:00 Intake & Output 05/16/20 05/17/20 05/17/20 18:59 06:59 18:59 Intake Total 1100 1700 Output Total 500 1285 Balance 600 415 Weight 92.9 kg Intake: IV 750 1200 DAPTOmycin 350 mg In 50 Sodium Chloride 0.9% 50 ml @ 100 mls/hr IVPB Q24HR [facility] Rx#:[id number] Sodium Chloride 0.9% 1, 600 1200 000 ml @ 75 mls/hr IV . [id number] [facility] Rx#:[id number] metroNIDAZOLE-NS PMX 500 100 mg In Saline 1 100ml.bag @ 100 mls/hr IVPB Q8HR [facility] Rx#:[id number] Oral 350 500 Output: Urine 500 1285 Other: Voiding Method Indwelling Catheter Indwelling Catheter # Bowel Movements 1 - Exam - Constitutional General appearance: Present: average body habitus, cooperative, no acute distress - EENT Eyes: Present: anicteric sclerae, EOMI, PERRLA, normal appearance ENT: Present: hearing grossly normal, normal oropharynx Ears: bilateral: normal - Neck Neck: Present: normal ROM. Absent: lymphadenopathy, rigidity, thyromegaly Carotids: negative: bruit present Thyroid: bilateral: normal size, negative: enlarged, nodule - Respiratory Respiratory: bilateral: CTA, negative: rales, rhonchi, wheezing - Cardiovascular Rhythm: regular Heart sounds: normal: S1, S2 Abnormal Heart Sounds: Absent: systolic murmur, diastolic murmur - Gastrointestinal General gastrointestinal: Present: normal bowel sounds, soft. Absent: distended, organomegaly, tenderness - Genitourinary Genitourinary Comment(s): deferred - Integumentary Integumentary: Present: normal turgor. Absent: jaundiced, rash, ulcer - Neurologic Neurologic: Present: CNII-XII intact. Absent: focal deficits - Musculoskeletal Musculoskeletal: Present: gait normal, strength equal bilaterally - Psychiatric Psychiatric: Present: A&O x's 3, appropriate affect, intact judgment & insight - Labs CBC & Chem 7: 05/17/20 04:35 05/17/20 04:35 Labs: Abnormal Lab Results - Last 24 Hours (Table) 05/17/20 05/17/20 Range/Units 04:35 04:35 RBC 2.75 L (3.80-5.40) m/uL Hgb 8.3 L (11.4-16.0) gm/dL Hct 28.6 L (34.0-46.0) % MCV 104.0 H (80.0-100.0) fL MCHC 28.8 L (31.0-37.0) g/dL RDW 15.7 H (11.5-15.5) % Plt Count 144 L (150-450) k/uL Potassium 3.3 L (3.5-5.1) mmol/L Chloride 112 H (98-107) mmol/L Creatinine 1.29 H (0.52-1.04) mg/dL Glucose 126 H (74-99) mg/dL Calcium 7.9 L (8.4-10.2) mg/dL Microbiology - Last 24 Hours (Table) 05/11/20 13:58 Blood Culture - Preliminary Blood No Growth after 120 hours 05/15/20 06:00 Urine Culture - Final Urine,Voided Megan albicans Assessment and Plan Assessment: 1. Fall and syncope; possible orthostatic hypertension; workup has been unremar kable 2. Acute GI bleed/possible ischemic colitis; patient remains on IV Flagyl and Cipro; IDs following; GI on board; we will start patient on clear liquid diet; patient does have history of rectal prolapse and diverticular disease and was scheduled outpatient surgery Dr. Lowery anemia on 05/21/2020; patient has been evaluated by surgery with possible reevaluation on Tuesday for further plan of care 3. Severe hypokalemia secondary to diarrhea; patient has been supplemented; we will continue to monitor electrolytes closely and supplement as needed 4. Twice a day/fungal UTI; patient is currently on IV daptomycin prior ID recommendations 5. Chronic anemia; at baseline; continue with iron supplement 6. Hypertension; metoprolol 25 mg by mouth 3 times a day 7. Hypothyroidism; levothyroxin 88 MCG daily 8. Peripheral neuropathy; continue with home dose of Lyrica 200 mg twice a day DVT prophylaxis; SCDs CODE STATUS; full code
[2020-05-18] MEDS: metroNIDAZOLE 500 MG TAB PO SCH ×4 (00:30→23:08)
[2020-05-18 05:03] LABS: Basophils % (A) 0 %; Eosinophils # (A) 0.2 k/uL (0-0.7); Eosinophils % (A) 3 %; HCT 26.5 % (34.0-46.0); HGB 7.8 gm/dL (11.4-16.0); Hypochromasia Marked; Lymphocytes # (A) 1.2 k/uL (1.0-4.8); Lymphocytes % (A) 23 %; MCH 30.4 pg (25.0-35.0); MCHC 29.3 g/dL (31.0-37.0); MCV 103.8 fL (80.0-100.0); Macrocytosis Moderate; Mean Platelet Volume 9.4; Monocytes # (A) 0.4 k/uL (0-1.0); Monocytes % (A) 8 %; Neutrophils # (A) 3.3 k/uL (1.3-7.7); Neutrophils % (A) 64 %; Platelet Count 150 k/uL (150-450); RBC 2.56 m/uL (3.80-5.40); RDW 15.8 % (11.5-15.5); WBC 5.3 k/uL (3.8-10.6)
[2020-05-18 05:20] LABS: Calcium 7.5 mg/dL (8.4-10.2); Potassium 2.8 mmol/L (3.5-5.1)
[2020-05-18] MEDS: LEVOTHYROXINE 88 MCG TAB PO SCH (06:29)
[2020-05-18] MEDS: POTASSIUM CHLORIDE ER 20 MEQ TAB.ER PO SCH ×9 (06:29→23:09)
[2020-05-18] MEDS: HYDROCORTISONE 10 MG TAB PO SCH ×2 (06:30→17:58)
[2020-05-18] MEDS: DAPTOmycin 350 MG in SODIUM CHLORIDE 0.9% 50 ML IVPB SCH (09:31)
[2020-05-18] MEDS: MULTIVITAMINS, THERA 1 EACH TAB PO SCH (09:31)
[2020-05-18] MEDS: allopurinoL 100 MG TAB PO SCH ×3 (09:31→20:57)
[2020-05-18] MEDS: PREGABALIN 100 MG CAP PO SCH ×2 (09:31→20:15)
[2020-05-18] MEDS: FERROUS SULFATE 325 MG TAB PO SCH (09:32)
[2020-05-18] MEDS: BALSALAZIDE DISODIUM 750 MG CAPSULE PO SCH ×2 (09:32→20:15)
[2020-05-18] MEDS: CIPROFLOXACIN HCL 500 MG TAB PO SCH ×2 (09:32→20:16)
[2020-05-18] MEDS: FLUDROCORTISONE 0.1 MG TAB PO SCH ×2 (09:32→20:16)
[2020-05-18] MEDS: METOPROLOL TARTRATE 25 MG TAB PO SCH ×3 (09:32→20:57)
--- NOTE | 2020-05-18 10:43 | P.PN ---
Subjective Progress Note Date: 05/18/20 Principal diagnosis: GI bleed Patient describing some diarrhea. No abdominal pain. No rectal bleeding. Hemoglobin 7.8, potassium 2.8. Tolerating diet. Objective - Vital Signs Vital signs: Vital Signs Temp 97.7 F 05/18/20 08:00 Pulse 108 H 05/18/20 08:00 Resp 16 05/18/20 08:00 BP 120/78 05/18/20 08:00 Pulse Ox 95 05/18/20 08:00 Intake & Output 05/17/20 05/18/20 05/18/20 18:59 06:59 18:59 Intake Total 1890 1075 Output Total 875 915 Balance 1015 160 Weight 94.7 kg Intake: IV 1000 1075 DAPTOmycin 350 mg In 100 Sodium Chloride 0.9% 50 ml @ 100 mls/hr IVPB Q24HR [facility] Rx#:[id number] Sodium Chloride 0.9% 1, 900 1075 000 ml @ 75 mls/hr IV . [id number] [facility] Rx#:[id number] Oral 890 Output: Urine 875 915 Other: Voiding Method Indwelling Catheter Indwelling Catheter Indwelling Catheter # Bowel Movements 1 - Exam Abdomen: Soft, nondistended, nontender - Labs CBC & Chem 7: 05/18/20 04:35 05/18/20 04:35 Labs: Abnormal Lab Results - Last 24 Hours (Table) 05/18/20 05/18/20 Range/Units 04:35 04:35 RBC 2.56 L (3.80-5.40) m/uL Hgb 7.8 L (11.4-16.0) gm/dL Hct 26.5 L (34.0-46.0) % MCV 103.8 H (80.0-100.0) fL MCHC 29.3 L (31.0-37.0) g/dL RDW 15.8 H (11.5-15.5) % Potassium 2.8 L (3.5-5.1) mmol/L Chloride 113 H (98-107) mmol/L Creatinine 1.33 H (0.52-1.04) mg/dL Glucose 116 H (74-99) mg/dL Calcium 7.5 L (8.4-10.2) mg/dL Microbiology - Last 24 Hours (Table) 05/15/20 17:56 Stool Culture - Preliminary Stool 05/11/20 13:58 Blood Culture - Final Blood No Growth after 144 hours Assessment and Plan (1) Gastrointestinal hemorrhage Narrative/Plan: Patient doing fairly well. Monitor hemoglobin. Possible endoscopic evaluation versus colonic resection later this week by Dr. Lowery. He will resume cov erage tomorrow. Current Visit: No Status: Acute Code(s): K92.2 - GASTROINTESTINAL HEMORRHAGE, UNSPECIFIED SNOMED Code(s): 77235534
[2020-05-18] MEDS: FLUCONAZOLE IN NACL,ISO-OSM 100 MG in SALINE 1 50ML.BAG IVPB SCH (10:52)
[2020-05-18] MEDS: SODIUM CHLORIDE 0.9% 1,000 ML IV SCH ×2 (12:03→23:09)
--- NOTE | 2020-05-18 15:48 | P.PN ---
Subjective Progress Note Date: 05/18/20 Principal diagnosis: Fall and syncope/orthostatic hypotension Acute GI bleed possibly secondary to acute colitis suspicion for ischemic colitis Severe hypokalemia VRE/fungal UTI 05/17/2020 Patient is seen and evaluated sitting in bedside chair with family members at bedside; patient does admit to a bowel movement which was nonbloody; hemoglobin remained stable at 8.3; patient remains off of anticoagulation therapy Patient is being followed by surgery with tentative plans to proceed with surgery that was scheduled as an outpatient for Tuesday; patient has been evaluated by neurology with no clinical evidence of a TIA; patient has been suggested to resume anticoagulation therapy then medically/surgically cleared for stroke prevention in view of atrial fibrillation 05/18/2020; Patient is evaluated in ICU sitting up in bedside chair; denies any specific complaints Vital signs remained stable with a temperature 97.7, pulse 108, blood pressure 120/78; lab reviews reveals a hemoglobin of 7.8 and a potassium of 2.8 with c reatinine up to 1.33 Possible endoscopic evaluation versus colonic resection later this week by Dr. Lowery; patient was originally scheduled for surgery on 05/21/2020; we will supplement electrolytes and monitor closely; monitor H&H; continue with IV fluids and monitor strict JENNY's, daily weights, renal function and electrolytes; avoid nephrotoxic agents Objective - Vital Signs Vital signs: Vital Signs Temp 97.8 F 05/18/20 04:00 Pulse 69 05/18/20 04:00 Resp 17 05/18/20 04:00 BP 99/59 05/18/20 04:00 Pulse Ox 96 05/18/20 00:00 Intake & Output 05/17/20 05/18/20 05/18/20 18:59 06:59 18:59 Intake Total 1890 1075 Output Total 875 915 Balance 1015 160 Weight 94.7 kg Intake: IV 1000 1075 DAPTOmycin 350 mg In 100 Sodium Chloride 0.9% 50 ml @ 100 mls/hr IVPB Q24HR [facility] Rx#:[id number] Sodium Chloride 0.9% 1, 900 1075 000 ml @ 75 mls/hr IV . [id number] [facility] Rx#:[id number] Oral 890 Output: Urine 875 915 Other: Voiding Method Indwelling Catheter Indwelling Catheter # Bowel Movements 1 - Exam - Constitutional General appearance: Present: average body habitus, cooperative, no acute distress - EENT Eyes: Present: anicteric sclerae, EOMI, PERRLA, normal appearance ENT: Present: hearing grossly normal, normal oropharynx Ears: bilateral: normal - Neck Neck: Present: normal ROM. Absent: lymphadenopathy, rigidity, thyromegaly Carotids: negative: bruit present Thyroid: bilateral: normal size, negative: enlarged, nodule - Respiratory Respiratory: bilateral: CTA, negative: rales, rhonchi, wheezing - Cardiovascular Rhythm: regular Heart sounds: normal: S1, S2 Abnormal Heart Sounds: Absent: systolic murmur, diastolic murmur - Gastrointestinal General gastrointestinal: Present: normal bowel sounds, soft. Absent: distended, organomegaly, tenderness - Genitourinary Genitourinary Comment(s): deferred - Integumentary Integumentary: Present: normal turgor. Absent: jaundiced, rash, ulcer - Neurologic Neurologic: Present: CNII-XII intact. Absent: focal deficits - Musculoskeletal Musculoskeletal: Present: gait normal, strength equal bilaterally - Psychiatric Psychiatric: Present: A&O x's 3, appropriate affect, intact judgment & insight - Labs CBC & Chem 7: 05/18/20 04:35 05/18/20 14:45 Labs: Abnormal Lab Results - Last 24 Hours (Table) 05/18/20 05/18/20 Range/Units 04:35 04:35 RBC 2.56 L (3.80-5.40) m/uL Hgb 7.8 L (11.4-16.0) gm/dL Hct 26.5 L (34.0-46.0) % MCV 103.8 H (80.0-100.0) fL MCHC 29.3 L (31.0-37.0) g/dL RDW 15.8 H (11.5-15.5) % Potassium 2.8 L (3.5-5.1) mmol/L Chloride 113 H (98-107) mmol/L Creatinine 1.33 H (0.52-1.04) mg/dL Glucose 116 H (74-99) mg/dL Calcium 7.5 L (8.4-10.2) mg/dL Microbiology - Last 24 Hours (Table) 05/15/20 17:56 Stool Culture - Preliminary Stool 05/11/20 13:58 Blood Culture - Final Blood No Growth after 144 hours Assessment and Plan Assessment: 1. Fall and syncope; possible orthostatic hypertension; workup has been unremarkable 2. Acute GI bleed/possible ischemic colitis; patient remains on IV Flagyl and Cipro; IDs following; GI on board; we will start patient on clear liquid diet; patient does have history of rectal prolapse and diverticular disease and was scheduled outpatient surgery Dr. Sebastián glynn on 05/21/2020; patient has been evaluated by surgery with possible reevaluation on Tuesday for further plan of care 3. Severe hypokalemia secondary to diarrhea; patient has been supplemented; we will continue to monitor electrolytes closely and supplement as needed 4. Twice a day/fungal UTI; patient is currently on IV daptomycin prior ID recommendations 5. Chronic anemia; at baseline; continue with iron supplement 6. Hypertension; metoprolol 25 mg by mouth 3 times a day 7. Hypothyroidism; levothyroxin 88 MCG daily 8. Peripheral neuropathy; continue with home dose of Lyrica 200 mg twice a day DVT prophylaxis; SCDs CODE STATUS; full code
[2020-05-18] MEDS ORDERED: Magnesium Replacement Protocol 1 EACH MISC MISCELLANE PRN (16:09)
[2020-05-18] MEDS: MAGNESIUM SULFATE-D5W PMX 1 GM in DEXTROSE/WATER 1 100ML.BAG IVPB SCH ×3 (16:49→19:12)
--- NOTE | 2020-05-18 23:10 | PN ---
PROGRESS NOTE DATE OF SERVICE: 05/18/2020 REASON FOR FOLLOWUP: 1. Colitis, question of ischemic. 2. Catheter associated urinary tract infection. INTERVAL HISTORY: The patient is currently afebrile. The patient is breathing comfortably. Did mention did have another episode of loose stools today. No blood or mucus in the stool. Denies having any chest pain. No shortness of breath or cough. PHYSICAL EXAMINATION: Blood pressure 131/86 with pulse of 87, temperature 98.3. She is 96% on room air. General description is an elderly female up in the chair in no distress. RESPIRATORY SYSTEM: Unlabored breathing, clear to auscultation anteriorly. HEART: S1, S2. Regular rate and rhythm. ABDOMEN: Soft, no tenderness. LABS: Hemoglobin 7.8, white count of 5.3. BUN of 9, creatinine 1.33. DIAGNOSTIC IMPRESSION AND PLAN: 1. Patient with diarrhea with hematochezia and transverse colon and splenic flexure colitis with question of possible ischemia. The patient covered with Cipro and Flagyl. 2. Patient with VRE positive urine culture repeat showing only Megan. Currently on daptomycin and Diflucan. Continue to monitor clinical course closely. MMODL / IJN: [id number] /
[2020-05-19 04:32] LABS: Anisocytosis Slight; Basophils % (A) 1 %; Eosinophils # (A) 0.1 k/uL (0-0.7); Eosinophils % (A) 2 %; HCT 28.6 % (34.0-46.0); HGB 8.4 gm/dL (11.4-16.0); Hypochromasia Marked; Lymphocytes # (A) 1.5 k/uL (1.0-4.8); Lymphocytes % (A) 27 %; MCH 30.9 pg (25.0-35.0); MCHC 29.4 g/dL (31.0-37.0); MCV 105.1 fL (80.0-100.0); Macrocytosis Moderate; Mean Platelet Volume 9.3; Monocytes # (A) 0.4 k/uL (0-1.0); Monocytes % (A) 6 %; Neutrophils # (A) 3.4 k/uL (1.3-7.7); Neutrophils % (A) 61 %; Platelet Count 179 k/uL (150-450); RBC 2.72 m/uL (3.80-5.40); RDW 16.4 % (11.5-15.5); WBC 5.6 k/uL (3.8-10.6)
[2020-05-19 04:48] LABS: Calcium 7.6 mg/dL (8.4-10.2); Potassium 3.6 mmol/L (3.5-5.1)
[2020-05-19] MEDS ORDERED: POTASSIUM CHLORIDE ER 20 MEQ TAB.ER PO SCH (05:00)
[2020-05-19] MEDS: HYDROCORTISONE 10 MG TAB PO SCH ×2 (06:38→16:46)
[2020-05-19] MEDS: LEVOTHYROXINE 88 MCG TAB PO SCH (06:38)
[2020-05-19] MEDS: DAPTOmycin 350 MG in SODIUM CHLORIDE 0.9% 50 ML IVPB SCH (08:53)
[2020-05-19] MEDS: FLUCONAZOLE IN NACL,ISO-OSM 100 MG in SALINE 1 50ML.BAG IVPB SCH (08:53)
[2020-05-19] MEDS: allopurinoL 100 MG TAB PO SCH ×3 (08:54→21:19)
[2020-05-19] MEDS: CIPROFLOXACIN HCL 500 MG TAB PO SCH ×2 (08:54→21:19)
[2020-05-19] MEDS: FERROUS SULFATE 325 MG TAB PO SCH (08:54)
[2020-05-19] MEDS: BALSALAZIDE DISODIUM 750 MG CAPSULE PO SCH ×2 (08:54→21:18)
[2020-05-19] MEDS: MULTIVITAMINS, THERA 1 EACH TAB PO SCH (08:54)
[2020-05-19] MEDS: POTASSIUM CHLORIDE ER 20 MEQ TAB.ER PO SCH (08:54)
[2020-05-19] MEDS: FLUDROCORTISONE 0.1 MG TAB PO SCH ×2 (08:54→21:19)
[2020-05-19] MEDS: METOPROLOL TARTRATE 25 MG TAB PO SCH ×3 (08:54→21:19)
[2020-05-19] MEDS: metroNIDAZOLE 500 MG TAB PO SCH ×3 (08:54→23:11)
[2020-05-19] MEDS: PREGABALIN 100 MG CAP PO SCH ×2 (08:54→21:20)
[2020-05-19] MEDS: SODIUM CHLORIDE 0.9% 1,000 ML IV SCH (08:57)
--- NOTE | 2020-05-19 09:56 | P.PN ---
Subjective Progress Note Date: 05/19/20 CHIEF COMPLAINT: Syncope and blood in stool HISTORY OF PRESENT ILLNESS: Patient remain in ICU as a Selective overflow. She is being followed for lower GI bleed. Patient had no further blood in her stools. She did have loose bowel movement. She is tolerating low fiber chopped diet . WBC 5.6 Hgb 8.4 PHYSICAL EXAM: VITAL SIGNS: Reviewed. GENERAL: Well-developed in no acute distress. HEENT: No sclera icterus. Extraocular movements grossly intact. Moist buccal mucosa. Head is atraumatic, normocephalic. ABDOMEN: Soft. Nontender nondistended NEUROLOGIC: Alert and oriented. Cranial nerves II through XII grossly intact. ASSESSMENT: 1. Acute lower GI bleed possibly secondary to diverticular bleed or from a rectal prolapse 2. Possible acute colitis likely ischemic also can be contributing to GI bleed PLAN: -Patient will be scheduled for colectomy on 05/21/[address] Lowery during her hospitalization -We will start bowel prep tomorrow -Patient remains off Coumadin and aspirin -Continue low fiber chopped diet for now -Continue monitor hemoglobin -Antibiotics per ID Physician [employer] note has been reviewed by physician. Signing provider agrees with the documented findings, assessment, and plan of care. Objective - Vital Signs Vital signs: Vital Signs Temp 97.6 F 05/19/20 03:29 Pulse 90 05/19/20 03:29 Resp 16 05/19/20 08:00 BP 136/97 05/19/20 08:00 Pulse Ox 95 05/19/20 08:00 Intake & Output 05/18/20 05/19/20 05/19/20 18:59 06:59 18:59 Intake Total 190 580 415 Output Total 450 1550 225 Balance -260 -970 190 Weight 94.7 kg 95 kg Intake: IV 140 80 125 DAPTOmycin 350 mg In 100 50 Sodium Chloride 0.9% 50 ml @ 100 mls/hr IVPB Q24HR [facility] Rx#:[id number] Sodium Chloride 0.9% 1, 40 80 75 000 ml @ 75 mls/hr IV . [id number] [facility] Rx#:[id number] Intake, IV Titration 50 50 Amount Fluconazole in NaCl,Iso- 50 50 Osm 100 mg In Saline 1 50ml.bag @ 50 mls/hr IVPB DAILY [facility] Rx#:[id number] Oral 500 240 Output: Urine 450 1550 225 Other: Voiding Method Indwelling Catheter Indwelling Catheter Indwelling Catheter # Bowel Movements 1 - Labs CBC & Chem 7: 05/19/20 03:33 05/19/20 03:33 Labs: Abnormal Lab Results - Last 24 Hours (Table) 05/18/20 05/18/20 05/18/20 Range/Units 14:45 14:45 21:13 RBC (3.80-5.40) m/uL Hgb (11.4-16.0) gm/dL Hct (34.0-46.0) % MCV (80.0-100.0) fL MCHC (31.0-37.0) g/dL RDW (11.5-15.5) % Potassium 3.3 L 3.3 L (3.5-5.1) mmol/L Chloride (98-107) mmol/L Creatinine (0.52-1.04) mg/dL Glucose (74-99) mg/dL Calcium (8.4-10.2) mg/dL Magnesium 1.3 L (1.6-2.3) mg/dL 05/19/20 05/19/20 Range/Units 03:33 03:33 RBC 2.72 L (3.80-5.40) m/uL Hgb 8.4 L (11.4-16.0) gm/dL Hct 28.6 L (34.0-46.0) % MCV 105.1 H (80.0-100.0) fL MCHC 29.4 L (31.0-37.0) g/dL RDW 16.4 H (11.5-15.5) % Potassium (3.5-5.1) mmol/L Chloride 110 H (98-107) mmol/L Creatinine 1.44 H (0.52-1.04) mg/dL Glucose 132 H (74-99) mg/dL Calcium 7.6 L (8.4-10.2) mg/dL Magnesium (1.6-2.3) mg/dL Microbiology - Last 24 Hours (Table) 05/15/20 17:56 Stool Culture - Final Stool
--- NOTE | 2020-05-19 21:53 | PN ---
PROGRESS NOTE DATE OF SERVICE: 05/19/2020 REASON FOR FOLLOWUP: Colitis and UTI. INTERVAL HISTORY: The patient is currently afebrile. The patient is breathing comfortably. Denies having any chest pain or shortness of breath or cough. No abdominal pain. Still has some diarrhea. She is scheduled for colonoscopy tomorrow. PHYSICAL EXAMINATION: Blood pressure 133/77 with a pulse of 89, temperature 98.4. She is 94% on room air. General description is an elderly female up in the chair in no distress. RESPIRATORY SYSTEM: Unlabored breathing with decreased breath sounds at the base. No wheeze. HEART: S1, S2. Regular rate and rhythm. ABDOMEN: Soft. No tenderness. LABS: Hemoglobin 8.4, white count 5.6. BUN of 8, creatinine 1.44. DIAGNOSTIC IMPRESSION AND PLAN: 1. Patient with evidence of colitis. So far stool for C difficile is negative. Stool culture negative with a question of ischemia. Covered with Cipro and Flagyl. 2. Vancomycin-resistant Enterococcus urinary tract infection. Repeat urine is Megan albicans. She has completed her daptomycin. Continue with the Diflucan and monitor clinical course closely. MMODL / IJN: [id number] /
[2020-05-20] MEDS: HYDROCORTISONE 10 MG TAB PO SCH ×2 (06:31→16:08)
[2020-05-20] MEDS: LEVOTHYROXINE 88 MCG TAB PO SCH (06:31)
[2020-05-20] MEDS: SODIUM CHLORIDE 0.9% 1,000 ML IV SCH ×2 (08:53→16:08)
[2020-05-20] MEDS: FERROUS SULFATE 325 MG TAB PO SCH (08:54)
[2020-05-20] MEDS: allopurinoL 100 MG TAB PO SCH ×3 (08:54→22:10)
[2020-05-20] MEDS: METOPROLOL TARTRATE 25 MG TAB PO SCH ×3 (08:54→22:09)
[2020-05-20] MEDS: MULTIVITAMINS, THERA 1 EACH TAB PO SCH (08:54)
[2020-05-20] MEDS: POTASSIUM CHLORIDE ER 20 MEQ TAB.ER PO SCH (08:54)
[2020-05-20] MEDS: PREGABALIN 100 MG CAP PO SCH ×2 (08:55→22:09)
[2020-05-20] MEDS: BALSALAZIDE DISODIUM 750 MG CAPSULE PO SCH ×2 (08:55→22:10)
[2020-05-20] MEDS: metroNIDAZOLE 500 MG TAB PO SCH ×2 (08:55→16:07)
[2020-05-20] MEDS: CIPROFLOXACIN HCL 500 MG TAB PO SCH ×2 (08:55→22:10)
[2020-05-20] MEDS: FLUDROCORTISONE 0.1 MG TAB PO SCH ×2 (08:56→22:11)
[2020-05-20] MEDS: FLUCONAZOLE IN NACL,ISO-OSM 100 MG in SALINE 1 50ML.BAG IVPB SCH (09:04)
[2020-05-20] MEDS ORDERED: PEG 3350-NA SULF,BICARB,CL/KCL 4,000 ML BOTTLE PO ONE ×2 (10:00→10:45)
--- NOTE | 2020-05-20 11:07 | P.PN ---
Subjective Progress Note Date: 05/20/20 CHIEF COMPLAINT: Syncope and blood in stool HISTORY OF PRESENT ILLNESS: Patient remain in ICU as a Selective overflow. She is being followed for lower GI bleed. Patient had no further blood in her stools. She did have bowel movement. Afebrile. WBC 5.6 Hgb 8.4 Mg 2.0 PHYSICAL EXAM: VITAL SIGNS: Reviewed. GENERAL: Well-developed in no acute distress. HEENT: No sclera icterus. Extraocular movements grossly intact. Moist buccal mucosa. Head is atraumatic, normocephalic. ABDOMEN: Soft. Nontender nondistended NEUROLOGIC: Alert and oriented. Cranial nerves II through XII grossly intact. ASSESSMENT: 1. Acute lower GI bleed possibly secondary to diverticular bleed or from a rectal prolapse 2. Possible acute colitis likely ischemic also can be contributing to GI bleed PLAN: -Patient is scheduled for sigmoid colectomy tomorrow with Dr. Lowery -Start clear liquid diet -NPO after midnight -Start GoLYTELY bowel prep -Patient remains off Coumadin and aspirin -Antibiotics per ID Physician Hay Sorter note has been reviewed by physician. Signing provider agrees with the documented findings, assessment, and plan of care. Objective - Vital Signs Vital signs: Vital Signs Temp 98.3 F 05/20/20 08:00 Pulse 95 05/20/20 08:00 Resp 16 05/20/20 08:00 BP 127/86 05/20/20 08:00 Pulse Ox 96 05/20/20 08:00 Intake & Output 05/19/20 05/20/20 05/20/20 18:59 06:59 18:59 Intake Total 1345 900 Output Total 650 1275 Balance 695 -375 Weight 95.5 kg Intake: IV 575 900 DAPTOmycin 350 mg In 50 Sodium Chloride 0.9% 50 ml @ 100 mls/hr IVPB Q24HR [facility] Rx#:[id number] Sodium Chloride 0.9% 1, 525 900 000 ml @ 75 mls/hr IV . [id number] [facility] Rx#:[id number] Intake, IV Titration 50 Amount Fluconazole in NaCl,Iso- 50 Osm 100 mg In Saline 1 50ml.bag @ 50 mls/hr IVPB DAILY [facility] Rx#:[id number] Oral 720 Output: Urine 650 1275 Other: Voiding Method Indwelling Catheter Indwelling Catheter Indwelling Catheter # Bowel Movements 1 - Labs CBC & Chem 7: 05/19/20 03:33 05/19/20 03:33 Labs: Microbiology - Last 24 Hours (Table) 05/15/20 17:56 Stool Culture - Final Stool
[2020-05-20 13:25] LABS: Calcium 7.6 mg/dL (8.4-10.2); Potassium 3.1 mmol/L (3.5-5.1)
--- NOTE | 2020-05-20 14:29 | P.PN ---
Subjective Principal diagnosis: Fall and syncope/orthostatic hypotension Acute GI bleed possibly secondary to acute colitis suspicion for ischemic colitis Severe hypokalemia VRE/fungal UTI 05/17/2020 Patient is seen and evaluated sitting in bedside chair with family members at bedside; patient does admit to a bowel movement which was nonbloody; hemoglobin remained stable at 8.3; patient remains off of anticoagulation therapy Patient is being followed by surgery with tentative plans to proceed with surg alcira that was scheduled as an outpatient for Tuesday; patient has been evaluated by neurology with no clinical evidence of a TIA; patient has been suggested to resume anticoagulation therapy then medically/surgically cleared for stroke prevention in view of atrial fibrillation 05/18/2020; Patient is evaluated in ICU sitting up in bedside chair; denies any specific complaints Vital signs remained stable with a temperature 97.7, pulse 108, blood pressure 120/78; lab reviews reveals a hemoglobin of 7.8 and a potassium of 2.8 with creatinine up to 1.33 Possible endoscopic evaluation versus colonic resection later this week by Dr. 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 Patient does have chronic colitis for which patient is on anti-inflammatory medications. Constitutional: Denied any fatigue denied any fever. Cardio vascular: denied any chest pain, palpitations Gastrointestinal denied any nausea vomiting Pulmonary: Denied any shortness of breath cough Neurologic denied any new focal deficits All inpatient medications were reviewed and appropriate changes in these medications as dictated in the interval history and assessment and plan. Objective - Vital Signs Vital signs: Vital Signs Temp 98 F 05/20/20 12:00 Pulse 76 05/20/20 12:00 Resp 16 05/20/20 12:00 BP 137/84 05/20/20 12:00 Pulse Ox 94 L 05/20/20 12:00 Intake & Output 05/19/20 05/20/20 05/20/20 18:59 06:59 18:59 Intake Total 1345 900 560 Output Total 650 6355 800 Balance 695 -375 -240 Weight 95.5 kg Intake: IV 575 900 300 DAPTOmycin 350 mg In 50 Sodium Chloride 0.9% 50 ml @ 100 mls/hr IVPB Q24HR [facility] Rx#:[id number] Sodium Chloride 0.9% 1, 525 900 300 000 ml @ 75 mls/hr IV . [id number] [facility] Rx#:[id number] Intake, IV Titration 50 Amount Fluconazole in NaCl,Iso- 50 Osm 100 mg In Saline 1 50ml.bag @ 50 mls/hr IVPB DAILY [facility] Rx#:[id number] Oral 720 260 Output: Urine 650 1275 800 Other: Voiding Method Indwelling Catheter Indwelling Catheter Indwelling Catheter # Bowel Movements 1 - Exam PHYSICAL EXAMINATION: GENERAL: The patient is alert and oriented x3, not in any acute distress. Well developed, well nourished. HEENT: Pupils are round and equally reacting to light. EOMI. No scleral icterus. No conjunctival pallor. Normocephalic, atraumatic. No pharyngeal erythema. No thyromegaly. CARDIOVASCULAR: S1 and S2 present. No murmurs, rubs, or gallops. PULMONARY: Chest is clear to auscultation, no wheezing or crackles. ABDOMEN: Soft, nontender, nondistended, normoactive bowel sounds. No palpable organomegaly. MUSCULOSKELETAL: No joint swelling or deformity. EXTREMITIES: No cyanosis, clubbing, does have bilateral pedal edema patient does have Peoples catheter NEUROLOGICAL: Gross neurological examination did not reveal any focal deficits. SKIN: No rashes. - Labs CBC & Chem 7: 05/19/20 03:33 05/20/20 12:57 Labs: Abnormal Lab Results - Last 24 Hours (Table) 05/20/20 Range/Units 12:57 Potassium 3.1 L (3.5-5.1) mmol/L Chloride 112 H (98-107) mmol/L Creatinine 1.28 H (0.52-1.04) mg/dL Glucose 173 H (74-99) mg/dL Calcium 7.6 L (8.4-10.2) mg/dL Assessment and Plan Plan: -Acute GI bleed which resolved the patient has possible colovesical fistula/ colitis can be ischemic colitis as per general surgery for which patient will undergo surgical intervention patient is presently on Flagyl and Cipro -Urinary tract infection urine cultures positive for enterococcus and Megan for which patient is on Diflucan and completed 7 days of daptomycin -Syncope secondary to intravascular depletion from a above-mentioned reasons -Hypokalemia potassium will be replaced -Acute renal failure: Improved now present creatinine is 1.28 -Chronic kidney disease stage III -Hypertension - hypothyroidism -Peripheral neuropathy
--- NOTE | 2020-05-20 17:03 | PN ---
PROGRESS NOTE DATE OF SERVICE: 05/20/2020 REASON FOR FOLLOWUP: 1. Colitis, possibly ischemic. 2. UTI. INTERVAL HISTORY: The patient is currently afebrile. The patient is breathing comfortably. She is currently getting bowel prep for surgery tomorrow. Denies any chest pain or cough. No nausea, no vomiting or abdominal pain. PHYSICAL EXAMINATION: Blood pressure 143/75 with a pulse of 83, temperature 97.5. She is 98% on room air. General description is an elderly female up in the chair in no distress. RESPIRATORY SYSTEM: Unlabored breathing. Clear to auscultation anteriorly. HEART: S1, S2. Regular rate and rhythm. ABDOMEN: Soft. No tenderness. LABS: BUN of 11, creatinine 1.28. No CBC was done today. DIAGNOSTIC IMPRESSION AND PLAN: 1. Patient with transverse colon and splenic flexure colitis with a question of possibly ischemic. The patient is covered with Cipro and Flagyl for possible surgery tomorrow. 2. Patient with urinary tract infection. Initial urine with VRE that has been adequately treated. She received 7 days of daptomycin. Repeat urine is Megan albicans, currently covered with Diflucan; to continue. MMODL / IJN: [id number] /
[2020-05-21] MEDS: metroNIDAZOLE 500 MG TAB PO SCH ×3 (00:51→18:40)
[2020-05-21 04:43] LABS: Anisocytosis Slight; HGB 8.4 gm/dL (11.4-16.0); Hypochromasia Marked; MCH 31.4 pg (25.0-35.0); MCHC 29.9 g/dL (31.0-37.0); MCV 105.1 fL (80.0-100.0); Macrocytosis Moderate; Mean Platelet Volume 9.2; Platelet Count 178 k/uL (150-450); RBC 2.66 m/uL (3.80-5.40); RDW 16.2 % (11.5-15.5); WBC 4.9 k/uL (3.8-10.6)
[2020-05-21 04:53] LABS: Calcium 7.5 mg/dL (8.4-10.2)
[2020-05-21 04:56] LABS: Potassium 2.3 mmol/L (3.5-5.1)
[2020-05-21] MEDS ORDERED: ACETAMINOPHEN TAB 500 MG TAB PO ONE (05:00)
[2020-05-21] MEDS ORDERED: metroNIDAZOLE-NS PMX 500 MG in SALINE 1 100ML.BAG IVPB ONE (05:00)
[2020-05-21] MEDS ORDERED: Potassium Replacement Protocol 1 EACH MISC MISCELLANE PRN (05:17)
[2020-05-21] MEDS ORDERED: POTASSIUM CHLORIDE 20 MEQ in WATER FOR INJECTION 1 100ML.BAG IVPB SCH (06:00)
[2020-05-21] MEDS: POTASSIUM CHLORIDE ER 20 MEQ TAB.ER PO SCH ×4 (06:04→10:12)
[2020-05-21] MEDS: HEPARIN SODIUM,PORCINE 5,000 UNIT/ML 1 ML VIAL SQ ONE ×3 (06:05→13:40)
[2020-05-21] MEDS: POTASSIUM CHLORIDE 10 MEQ in WATER FOR INJECTION 1 100ML.BAG IVPB SCH ×8 (06:05→19:59)
[2020-05-21] MEDS: SODIUM CHLORIDE 0.9% 1,000 ML IV SCH ×2 (06:35→20:00)
[2020-05-21] MEDS: HYDROCORTISONE 10 MG TAB PO SCH ×2 (06:57→18:40)
[2020-05-21] MEDS: LEVOTHYROXINE 88 MCG TAB PO SCH (07:19)
[2020-05-21] MEDS: METOPROLOL TARTRATE 25 MG TAB PO SCH ×3 (08:55→20:43)
[2020-05-21] MEDS: PREGABALIN 100 MG CAP PO SCH ×2 (08:55→20:43)
[2020-05-21] MEDS: allopurinoL 100 MG TAB PO SCH ×3 (08:55→20:43)
[2020-05-21] MEDS: FERROUS SULFATE 325 MG TAB PO SCH (08:55)
[2020-05-21] MEDS: MULTIVITAMINS, THERA 1 EACH TAB PO SCH (08:57)
[2020-05-21] MEDS: BALSALAZIDE DISODIUM 750 MG CAPSULE PO SCH ×2 (08:57→21:19)
[2020-05-21] MEDS: FLUCONAZOLE IN NACL,ISO-OSM 100 MG in SALINE 1 50ML.BAG IVPB SCH (08:59)
[2020-05-21] MEDS: FLUDROCORTISONE 0.1 MG TAB PO SCH ×2 (09:06→21:19)
[2020-05-21 10:08] LABS: Calcium 7.4 mg/dL (8.4-10.2); Potassium 2.8 mmol/L (3.5-5.1)
[2020-05-21] MEDS ORDERED: POTASSIUM BICARBONATE/CIT AC 20 MEQ TABLET.EFF PO ONE ×2 (10:36→12:00)
--- NOTE | 2020-05-21 11:23 | P.PN ---
Subjective Progress Note Date: 05/21/20 CHIEF COMPLAINT: Syncope and blood in stool HISTORY OF PRESENT ILLNESS: Patient seen with Dr. Lowery. Patient remain in ICU as a Selective overflow. She is being followed for lower GI bleed. Patient had no further blood in her stools. She did the Golytely prep and was scheduled for surgery today. However, surgery was held this morning because her potassium is low at 2.3. It is currently being replaced. Her last potassium was 2.8 she is still getting supplement and then will be rechecked again. Afebrile. WBC 4.9, Hgb 8.4 Hgb 8.4 Mg 2.0 PHYSICAL EXAM: VITAL SIGNS: Reviewed. GENERAL: Well-developed in no acute distress. HEENT: No sclera icterus. Extraocular movements grossly intact. Moist buccal mucosa. Head is atraumatic, normocephalic. ABDOMEN: Soft. Nontender nondistended NEUROLOGIC: Alert and oriented. Cranial nerves II through XII grossly intact. ASSESSMENT: 1. Acute lower GI bleed possibly secondary to diverticular bleed or from a rectal prolapse 2. Possible acute colitis likely ischemic also can be contributing to GI bleed 3. Hypokalemia PLAN: -Patient's surgery for sigmoid colectomy is currently on hold due to low potassium. Awaiting repeat potassium level to assess if patient will be going to surgery later today. -Replace potassium per protocol -keep NPO -Patient remains off Coumadin and aspirin -Antibiotics per ID Physician Bleacher Lard note has been reviewed by physician. Signing provider agrees with the documented findings, assessment, and plan of care. Objective - Vital Signs Vital signs: Vital Signs Temp 97.9 F 05/21/20 04:00 Pulse 83 05/20/20 16:00 Resp 16 05/21/20 04:00 BP 146/91 05/21/20 04:00 Pulse Ox 97 05/21/20 04:00 Intake & Output 05/20/20 05/21/20 05/21/20 18:59 06:59 18:59 Intake Total 4760 1200 Output Total 3300 2700 Balance 1460 -1500 Weight 96.7 kg 96.7 kg Intake: IV 300 1200 Sodium Chloride 0.9% 1, 300 1200 000 ml @ 75 mls/hr IV . [id number] [facility] Rx#:[id number] Oral 4460 Output: Urine 800 2700 Stool 2500 Other: Voiding Method Indwelling Catheter Indwelling Catheter # Bowel Movements 2 - Labs CBC & Chem 7: 05/21/20 04:18 05/21/20 09:45 Labs: Abnormal Lab Results - Last 24 Hours (Table) 05/20/20 05/21/20 05/21/20 Range/Units 12:57 04:18 04:18 RBC 2.66 L (3.80-5.40) m/uL Hgb 8.4 L (11.4-16.0) gm/dL Hct 28.0 L (34.0-46.0) % MCV 105.1 H (80.0-100.0) fL MCHC 29.9 L (31.0-37.0) g/dL RDW 16.2 H (11.5-15.5) % Potassium 3.1 L 2.3 L* (3.5-5.1) mmol/L Chloride 112 H 110 H (98-107) mmol/L Creatinine 1.28 H 1.14 H (0.52-1.04) mg/dL Glucose 173 H 113 H (74-99) mg/dL Calcium 7.6 L 7.5 L (8.4-10.2) mg/dL 05/21/20 Range/Units 09:45 RBC (3.80-5.40) m/uL Hgb (11.4-16.0) gm/dL Hct (34.0-46.0) % MCV (80.0-100.0) fL MCHC (31.0-37.0) g/dL RDW (11.5-15.5) % Potassium 2.8 L (3.5-5.1) mmol/L Chloride 110 H (98-107) mmol/L Creatinine 1.18 H (0.52-1.04) mg/dL Glucose 111 H (74-99) mg/dL Calcium 7.4 L (8.4-10.2) mg/dL
[2020-05-21] MEDS ORDERED: IV FLUID CONTINUATION 1,000 ML IV ONE (13:08)
[2020-05-21 13:35] LABS: Glucose,Whole Blood 143 mg/dL (75-99)
[2020-05-21] MEDS ORDERED: ALVIMOPAN 12 MG CAPSULE PO ONE (13:41)
[2020-05-21] MEDS ORDERED: ONDANSETRON 4 MG/2 ML VIAL IVP ONE (13:41)
[2020-05-21] MEDS ORDERED: DEXAMETHASONE SOD PHOSPHATE 10 MG/ML 1 ML VIAL IV ONE (13:41)
[2020-05-21] MEDS ORDERED: LACTATED RINGERS 1,000 ML IV ONE ×5 (13:45→16:40)
[2020-05-21] MEDS ORDERED: PHENYLEPHRINE-0.9% NACL SYG 1 MG/10 ML SYRINGE ONE (14:05)
[2020-05-21] MEDS ORDERED: GLYCOPYRROLATE 0.2 MG/ML 2 ML VIAL ONE (14:05)
[2020-05-21] MEDS ORDERED: SUCCINYLCHOLINE CHLORIDE 100 MG/5 ML SYR IV ONE (14:05)
[2020-05-21] MEDS ORDERED: ESMOLOL 100 MG/10 ML VIAL ONE (14:05)
[2020-05-21] MEDS ORDERED: HYDROCORTISONE SUCCINATE 100 MG/2 ML VIAL ONE (14:05)
[2020-05-21] MEDS ORDERED: ROCURONIUM BROMIDE 10 MG/ML 5 ML VIAL IV ONE (14:05)
[2020-05-21] MEDS ORDERED: LIDOCAINE 1% INJ 10MG/ML (20 ML MDV) ONE (14:05)
[2020-05-21] MEDS ORDERED: METOPROLOL TARTRATE 5 MG/5 ML VIAL IVP ONE (14:05)
[2020-05-21] MEDS ORDERED: NEOSTIGMINE 1 MG/ML 10 ML VIAL ONE (14:05)
[2020-05-21] MEDS ORDERED: PROPOFOL 10 MG/ML 20 ML VIAL IV ONE (14:05)
[2020-05-21] MEDS ORDERED: .MORPHINE SULFATE (INJ) 10 MG/ML SYRINGE ONE (14:05)
[2020-05-21] MEDS ORDERED: fentaNYL (PF) 50 MCG/ML 2 ML AMP ONE (14:05)
[2020-05-21] MEDS ORDERED: METHYLENE BLUE 10 MG/ML (10 ML VIAL) IRRIGATION ONE (15:54)
--- NOTE | 2020-05-21 15:54 | P.PN ---
Subjective Principal diagnosis: Fall and syncope/orthostatic hypotension Acute GI bleed possibly secondary to acute colitis suspicion for ischemic colitis Severe hypokalemia VRE/fungal UTI 05/17/2020 Patient is seen and evaluated sitting in bedside chair with family members at bedside; patient does admit to a bowel movement which was nonbloody; hemoglobin remained stable at 8.3; patient remains off of anticoagulation therapy Patient is being followed by surgery with tentative plans to proceed with surg alcira that was scheduled as an outpatient for Tuesday; patient has been evaluated by neurology with no clinical evidence of a TIA; patient has been suggested to resume anticoagulation therapy then medically/surgically cleared for stroke prevention in view of atrial fibrillation 05/18/2020; Patient is evaluated in ICU sitting up in bedside chair; denies any specific complaints Vital signs remained stable with a temperature 97.7, pulse 108, blood pressure 120/78; lab reviews reveals a hemoglobin of 7.8 and a potassium of 2.8 with creatinine up to 1.33 Possible endoscopic evaluation versus colonic resection later this week by Dr. 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 Patient does have chronic colitis for which patient is on anti-inflammatory medications. 05/21/2020 Patient is a scheduled for sigmoid colectomy today. No sick and overnight events patient Goyo is extremely low which was replaced. Constitutional: Denied any fatigue denied any fever. Cardio vascular: denied any chest pain, palpitations Gastrointestinal denied any nausea vomiting Pulmonary: Denied any shortness of breath cough Neurologic denied any new focal deficits All inpatient medications were reviewed and appropriate changes in these medications as dictated in the interval history and assessment and plan. Objective - Vital Signs Vital signs: Vital Signs Temp 98 F 05/21/20 12:00 Pulse 78 05/21/20 13:03 Resp 16 05/21/20 13:03 BP 148/90 05/21/20 13:03 Pulse Ox 95 05/21/20 13:03 Intake & Output 05/20/20 05/21/20 05/21/20 18:59 06:59 18:59 Intake Total 4760 1200 1610 Output Total 3300 2700 500 Balance 1460 -1500 1110 Weight 96.7 kg 96.7 kg Intake: IV 300 1200 1550 Sodium Chloride 0.9% 1, 300 1200 300 000 ml @ 75 mls/hr IV . [id number] [facility] Rx#:[id number] Oral 4460 60 Output: Urine 800 2700 500 Stool 2500 Other: Voiding Method Indwelling Catheter Indwelling Catheter Indwelling Catheter # Bowel Movements 2 - Exam PHYSICAL EXAMINATION: GENERAL: The patient is alert and oriented x3, not in any acute distress. Well developed, well nourished. HEENT: Pupils are round and equally reacting to light. EOMI. No scleral icterus. No conjunctival pallor. Normocephalic, atraumatic. No pharyngeal erythema. No thyromegaly. CARDIOVASCULAR: S1 and S2 present. No murmurs, rubs, or gallops. PULMONARY: Chest is clear to auscultation, no wheezing or crackles. ABDOMEN: Soft, nontender, nondistended, normoactive bowel sounds. No palpable organomegaly. MUSCULOSKELETAL: No joint swelling or deformity. EXTREMITIES: No cyanosis, clubbing, does have bilateral pedal edema patient does have Peoples catheter NEUROLOGICAL: Gross neurological examination did not reveal any focal deficits. SKIN: No rashes. - Labs CBC & Chem 7: 05/21/20 04:18 05/21/20 14:45 Labs: Abnormal Lab Results - Last 24 Hours (Table) 05/21/20 05/21/20 05/21/20 Range/Units 04:18 04:18 09:45 RBC 2.66 L (3.80-5.40) m/uL Hgb 8.4 L (11.4-16.0) gm/dL Hct 28.0 L (34.0-46.0) % MCV 105.1 H (80.0-100.0) fL MCHC 29.9 L (31.0-37.0) g/dL RDW 16.2 H (11.5-15.5) % Potassium 2.3 L* 2.8 L (3.5-5.1) mmol/L Chloride 110 H 110 H (98-107) mmol/L Creatinine 1.14 H 1.18 H (0.52-1.04) mg/dL Glucose 113 H 111 H (74-99) mg/dL POC Glucose (mg/dL) (75-99) mg/dL Calcium 7.5 L 7.4 L (8.4-10.2) mg/dL Crossmatch 05/21/20 05/21/20 Range/Units 11:45 13:33 RBC (3.80-5.40) m/uL Hgb (11.4-16.0) gm/dL Hct (34.0-46.0) % MCV (80.0-100.0) fL MCHC (31.0-37.0) g/dL RDW (11.5-15.5) % Potassium (3.5-5.1) mmol/L Chloride (98-107) mmol/L Creatinine (0.52-1.04) mg/dL Glucose (74-99) mg/dL POC Glucose (mg/dL) 143 H (75-99) mg/dL Calcium (8.4-10.2) mg/dL Crossmatch See Detail Assessment and Plan Plan: -Acute GI bleed which resolved the patient has possible sigmoid colitis can be ischemic colitis as per general surgery for which patient will undergo Geovanny colectomy today patient is presently on Flagyl and Cipro -Urinary tract infection urine cultures positive for enterococcus and Megan for which patient is on Diflucan and completed 7 days of daptomycin -Syncope secondary to intravascular depletion from a above-mentioned reasons -Hypokalemia potassium will be replaced -Acute renal failure: Improved now present creatinine is 1.28 -Chronic kidney disease stage III -Hypertension - hypothyroidism -Peripheral neuropathy
[2020-05-21] MEDS ORDERED: ONDANSETRON 4 MG/2 ML VIAL IVP PRN (16:40)
[2020-05-21] MEDS ORDERED: METOCLOPRAMIDE 5 MG/ML 2 ML VIAL IVP PRN (16:40)
--- NOTE | 2020-05-21 16:50 | PN ---
PROGRESS NOTE DATE OF SERVICE: 05/21/2020 REASON FOR FOLLOWUP: Colitis and UTI. INTERVAL HISTORY: The patient is currently afebrile. The patient is breathing comfortably, waiting for surgery. No chest pain or cough. No abdominal pain or diarrhea. PHYSICAL EXAMINATION: Blood pressure 148/90 with a pulse of 78, temperature 98. She is 95% on room air. General description is an elderly female up in the chair in no distress. RESPIRATORY SYSTEM: Unlabored breathing. Clear to auscultation anteriorly. HEART: S1, S2. Regular rate and rhythm. ABDOMEN: Soft. No tenderness. LABS: BUN of 7, creatinine 1.18, white count 4.9. DIAGNOSTIC IMPRESSION AND PLAN: 1. Patient with transverse and splenic flexure colitis with a question of possible ischemic, scheduled for surgery. Continue Cipro and Flagyl. 2. Urinary tract infection. Initial culture with VRE. Finish therapy with daptomycin. Repeat is now showing yeast; covered with Diflucan. MMODL / IJN: [id number] /
[2020-05-21] MEDS ORDERED: fentaNYL (PF) 50 MCG/ML 2 ML AMP IVP ONE (17:05)
[2020-05-21 17:49] LABS: Glucose,Whole Blood 190 mg/dL (75-99)
[2020-05-21] MEDS: CIPROFLOXACIN HCL 500 MG TAB PO SCH ×2 (18:39→20:44)
[2020-05-21] MEDS: D5-0.45% NACL WITH KCL 20MEQ/L 1,000 ML IV SCH (18:40)
[2020-05-21 19:11] LABS: Anisocytosis Slight; HCT 35.5 % (34.0-46.0); HGB 10.2 gm/dL (11.4-16.0); Hypochromasia Marked; MCH 30.3 pg (25.0-35.0); MCHC 28.7 g/dL (31.0-37.0); MCV 105.7 fL (80.0-100.0); Macrocytosis Moderate; Mean Platelet Volume 9.2; Platelet Count 200 k/uL (150-450); Poikilocytosis Slight; RBC 3.36 m/uL (3.80-5.40); RDW 16.1 % (11.5-15.5)
[2020-05-21] MEDS: ALVIMOPAN 12 MG CAPSULE PO SCH (20:43)
[2020-05-21] MEDS: FAMOTIDINE 20 MG/2 ML VIAL IV SCH (20:44)
[2020-05-22] MEDS: metroNIDAZOLE 500 MG TAB PO SCH ×4 (00:43→22:53)
[2020-05-22] MEDS: HEPARIN SODIUM,PORCINE 5,000 UNIT/ML 1 ML VIAL SQ SCH ×4 (00:43→22:52)
[2020-05-22] MEDS: D5-0.45% NACL WITH KCL 20MEQ/L 1,000 ML IV SCH (00:43)
[2020-05-22] MEDS: LEVOTHYROXINE 88 MCG TAB PO SCH (06:27)
[2020-05-22] MEDS: HYDROCORTISONE 10 MG TAB PO SCH ×2 (06:27→22:50)
[2020-05-22 07:08] LABS: Anisocytosis Slight; Basophils % (A) 0 %; Eosinophils % (A) 0 %; HCT 33.7 % (34.0-46.0); Hypochromasia Marked; Lymphocytes # (A) 0.8 k/uL (1.0-4.8); Lymphocytes % (A) 7 %; MCH 31.2 pg (25.0-35.0); MCHC 29.7 g/dL (31.0-37.0); Macrocytosis Moderate; Mean Platelet Volume 9.2; Monocytes # (A) 0.4 k/uL (0-1.0); Monocytes % (A) 4 %; Neutrophils # (A) 10.8 k/uL (1.3-7.7); Neutrophils % (A) 89 %; Platelet Count 190 k/uL (150-450); Poikilocytosis Slight; RDW 16.5 % (11.5-15.5); WBC 12.2 k/uL (3.8-10.6)
[2020-05-22 07:23] LABS: Calcium 7.5 mg/dL (8.4-10.2); Potassium 5.6 mmol/L (3.5-5.1)
[2020-05-22] MEDS ORDERED: SODIUM CHLORIDE 0.9% 1,000 ML IV SCH (08:15)
--- NOTE | 2020-05-22 08:55 | P.PN ---
Progress Note - Text Progress Note Date: 05/22/20 Patient is awake and alert. She is in no distress. She is afebrile with stable vital signs. Her Peoples catheter is draining urine which is essentially clear in color. The catheter show remain in place for approximately 10 days, at which time it may be removed for a voiding trial.
[2020-05-22] MEDS: MULTIVITAMINS, THERA 1 EACH TAB PO SCH (09:18)
[2020-05-22] MEDS: allopurinoL 100 MG TAB PO SCH ×3 (09:18→22:52)
[2020-05-22] MEDS: CIPROFLOXACIN HCL 500 MG TAB PO SCH ×2 (09:18→22:51)
[2020-05-22] MEDS: FERROUS SULFATE 325 MG TAB PO SCH (09:18)
[2020-05-22] MEDS: METOPROLOL TARTRATE 25 MG TAB PO SCH ×3 (09:18→22:52)
[2020-05-22] MEDS: FAMOTIDINE 20 MG/2 ML VIAL IV SCH (09:19)
[2020-05-22] MEDS: DEXTROSE 5%-0.45% NACL 1,000 ML IV SCH (09:20)
--- NOTE | 2020-05-22 10:53 | P.PN ---
Subjective Progress Note Date: 05/22/20 CHIEF COMPLAINT: Syncope and blood in stool HISTORY OF PRESENT ILLNESS: Patient is postop day #1 status post lower anterior resection and mesh removal. She is complaining of some incisional abdominal pain with nausea. No vomiting. She is not passing any gas. Bowel movement yet. White count is 12.2 hemoglobin 10 potassium is now elevated at 5.6 after she received multiple potassium supplements for low potassium yesterday. Patient is afebrile. She's currently on a clear liquid diet. PHYSICAL EXAM: VITAL SIGNS: Reviewed. GENERAL: Well-developed in no acute distress. HEENT: No sclera icterus. Extraocular movements grossly intact. Moist buccal mucosa. Head is atraumatic, normocephalic. ABDOMEN: Soft. Nondistended dressing incision site is clean dry and intact NEUROLOGIC: Alert and oriented. Cranial nerves II through XII grossly intact. ASSESSMENT: 1. Postoperative day #1 status post lower anterior resection and mesh removal 1. Acute lower GI bleed possibly secondary to diverticular bleed or from a rectal prolapse 2. Possible acute colitis, likely ischemic also can be contributing to GI bleed 3. Hypokalemia resolved with supplemental 4. Patient now having hyperkalemia potassium 5.6. PLAN: -Remove potassium from IV fluids. -Discontinue potassium supplement. -Repeat potassium level is 5.1 -Patient remains off Coumadin and aspirin -Antibiotics per ID -Continue Tylenol and morphine as needed for pain -GI prophylaxis Pepcid and DVT prophylaxis subcu heparin Physician Respite Care Provider note has been reviewed by physician. Signing provider agrees with the documented findings, assessment, and plan of care. Objective - Vital Signs Vital signs: Vital Signs Temp 97.5 F L 05/22/20 08:00 Pulse 69 05/22/20 08:00 Resp 16 05/22/20 08:00 BP 125/67 05/22/20 08:00 Pulse Ox 99 05/22/20 08:00 Intake & Output 05/21/20 05/22/20 05/22/20 18:59 06:59 18:59 Intake Total 2920 120 Output Total 1000 250 Balance 1920 -130 Weight 96.7 kg 113 kg Intake: IV 2550 Sodium Chloride 0.9% 1, 300 000 ml @ 75 mls/hr IV . [id number] [facility] Rx#:[id number] Oral 60 120 Blood Product 310 Rc As-1 Unit 310 [id number] Output: Urine 700 250 Estimated Blood Loss 300 Other: Voiding Method Indwelling Catheter Indwelling Catheter - Labs CBC & Chem 7: 05/22/20 06:52 05/22/20 12:10 Labs: Abnormal Lab Results - Last 24 Hours (Table) 05/21/20 05/21/20 05/21/20 Range/Units 11:45 13:33 17:47 WBC (3.8-10.6) k/uL RBC (3.80-5.40) m/uL Hgb (11.4-16.0) gm/dL Hct (34.0-46.0) % MCV (80.0-100.0) fL MCHC (31.0-37.0) g/dL RDW (11.5-15.5) % Neutrophils # (1.3-7.7) k/uL Lymphocytes # (1.0-4.8) k/uL Potassium (3.5-5.1) mmol/L Chloride (98-107) mmol/L Creatinine (0.52-1.04) mg/dL Glucose (74-99) mg/dL POC Glucose (mg/dL) 143 H 190 H (75-99) mg/dL Calcium (8.4-10.2) mg/dL Crossmatch See Detail 05/21/20 05/22/20 05/22/20 Range/Units 18:58 06:52 06:52 WBC 15.0 H 12.2 H (3.8-10.6) k/uL RBC 3.36 L 3.20 L (3.80-5.40) m/uL Hgb 10.2 L 10.0 L (11.4-16.0) gm/dL Hct 33.7 L (34.0-46.0) % MCV 105.7 H 105.0 H (80.0-100.0) fL MCHC 28.7 L 29.7 L (31.0-37.0) g/dL RDW 16.1 H 16.5 H (11.5-15.5) % Neutrophils # 10.8 H (1.3-7.7) k/uL Lymphocytes # 0.8 L (1.0-4.8) k/uL Potassium 5.6 H (3.5-5.1) mmol/L Chloride 112 H (98-107) mmol/L Creatinine 1.39 H (0.52-1.04) mg/dL Glucose 219 H (74-99) mg/dL POC Glucose (mg/dL) (75-99) mg/dL Calcium 7.5 L (8.4-10.2) mg/dL Crossmatch
[2020-05-22] MEDS: MORPHINE SULFATE 4 MG/ML SYRINGE IVP PRN ×2 (12:10→17:18)
[2020-05-22] MEDS: FLUCONAZOLE IN NACL,ISO-OSM 100 MG in SALINE 1 50ML.BAG IVPB SCH (12:14)
[2020-05-22] MEDS: BALSALAZIDE DISODIUM 750 MG CAPSULE PO SCH ×2 (12:15→22:50)
[2020-05-22] MEDS: ALVIMOPAN 12 MG CAPSULE PO SCH ×2 (12:16→22:49)
[2020-05-22] MEDS: FLUDROCORTISONE 0.1 MG TAB PO SCH ×2 (12:17→22:51)
[2020-05-22] MEDS: PREGABALIN 100 MG CAP PO SCH ×2 (12:17→22:52)
--- NOTE | 2020-05-22 13:45 | P.PN ---
Subjective Principal diagnosis: Fall and syncope/orthostatic hypotension Acute GI bleed possibly secondary to acute colitis suspicion for ischemic colitis Severe hypokalemia VRE/fungal UTI 05/17/2020 Patient is seen and evaluated sitting in bedside chair with family members at bedside; patient does admit to a bowel movement which was nonbloody; hemoglobin remained stable at 8.3; patient remains off of anticoagulation therapy Patient is being followed by surgery with tentative plans to proceed with surg alcira that was scheduled as an outpatient for Tuesday; patient has been evaluated by neurology with no clinical evidence of a TIA; patient has been suggested to resume anticoagulation therapy then medically/surgically cleared for stroke prevention in view of atrial fibrillation 05/18/2020; Patient is evaluated in ICU sitting up in bedside chair; denies any specific complaints Vital signs remained stable with a temperature 97.7, pulse 108, blood pressure 120/78; lab reviews reveals a hemoglobin of 7.8 and a potassium of 2.8 with creatinine up to 1.33 Possible endoscopic evaluation versus colonic resection later this week by Dr. 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 Patient does have chronic colitis for which patient is on anti-inflammatory medications. 05/21/2020 Patient is a scheduled for sigmoid colectomy today. No sick and overnight events patient Goyo is extremely low which was replaced. 05/22/2020 Patient is sigmoid colectomy doesn't have any bowel sounds today Constitutional: Denied any fatigue denied any fever. Cardio vascular: denied any chest pain, palpitations Gastrointestinal denied any nausea vomiting Pulmonary: Denied any shortness of breath cough Neurologic denied any new focal deficits All inpatient medications were reviewed and appropriate changes in these medications as dictated in the interval history and assessment and plan. Objective - Vital Signs Vital signs: Vital Signs Temp 97.5 F L 05/22/20 08:00 Pulse 69 05/22/20 08:00 Resp 16 05/22/20 11:55 BP 125/67 05/22/20 08:00 Pulse Ox 99 05/22/20 08:00 Intake & Output 05/21/20 05/22/20 05/22/20 18:59 06:59 18:59 Intake Total 2920 120 Output Total 1000 2750 Balance 1920 -2630 Weight 96.7 kg 113 kg Intake: IV 2550 Sodium Chloride 0.9% 1, 300 000 ml @ 75 mls/hr IV . [id number] [facility] Rx#:[id number] Oral 60 120 Blood Product 310 Rc As-1 Unit 310 [id number] Output: Urine 700 250 Stool 2500 Estimated Blood Loss 300 Other: Voiding Method Indwelling Catheter Indwelling Catheter Indwelling Catheter - Exam PHYSICAL EXAMINATION: GENERAL: The patient is alert and oriented x3, not in any acute distress. Well developed, well nourished. HEENT: Pupils are round and equally reacting to light. EOMI. No scleral icterus. No conjunctival pallor. Normocephalic, atraumatic. No pharyngeal erythema. No thyromegaly. CARDIOVASCULAR: S1 and S2 present. No murmurs, rubs, or gallops. PULMONARY: Chest is clear to auscultation, no wheezing or crackles. ABDOMEN: Soft, nontender, nondistended, normoactive bowel sounds. No palpable organomegaly. MUSCULOSKELETAL: No joint swelling or deformity. EXTREMITIES: No cyanosis, clubbing, does have bilateral pedal edema patient does have Peoples catheter NEUROLOGICAL: Gross neurological examination did not reveal any focal deficits. SKIN: No rashes. - Labs CBC & Chem 7: 05/22/20 06:52 05/22/20 12:10 Labs: Abnormal Lab Results - Last 24 Hours (Table) 05/21/20 05/21/20 05/21/20 Range/Units 11:45 17:47 18:58 WBC 15.0 H (3.8-10.6) k/uL RBC 3.36 L (3.80-5.40) m/uL Hgb 10.2 L (11.4-16.0) gm/dL Hct (34.0-46.0) % MCV 105.7 H (80.0-100.0) fL MCHC 28.7 L (31.0-37.0) g/dL RDW 16.1 H (11.5-15.5) % Neutrophils # (1.3-7.7) k/uL Lymphocytes # (1.0-4.8) k/uL Potassium (3.5-5.1) mmol/L Chloride (98-107) mmol/L Creatinine (0.52-1.04) mg/dL Glucose (74-99) mg/dL POC Glucose (mg/dL) 190 H (75-99) mg/dL Calcium (8.4-10.2) mg/dL Crossmatch See Detail 05/22/20 05/22/20 Range/Units 06:52 06:52 WBC 12.2 H (3.8-10.6) k/uL RBC 3.20 L (3.80-5.40) m/uL Hgb 10.0 L (11.4-16.0) gm/dL Hct 33.7 L (34.0-46.0) % MCV 105.0 H (80.0-100.0) fL MCHC 29.7 L (31.0-37.0) g/dL RDW 16.5 H (11.5-15.5) % Neutrophils # 10.8 H (1.3-7.7) k/uL Lymphocytes # 0.8 L (1.0-4.8) k/uL Potassium 5.6 H (3.5-5.1) mmol/L Chloride 112 H (98-107) mmol/L Creatinine 1.39 H (0.52-1.04) mg/dL Glucose 219 H (74-99) mg/dL POC Glucose (mg/dL) (75-99) mg/dL Calcium 7.5 L (8.4-10.2) mg/dL Crossmatch Assessment and Plan Plan: -Acute GI bleed which resolved the patient has possible sigmoid colitis can be ischemic colitis patient did undergo sigmoid colectomy does have leukocytosis which is a postoperative reactive response and patient is presently an amp a ntibiotics -Urinary tract infection urine cultures positive for enterococcus and Megan for which patient is on Diflucan and completed 7 days of daptomycin -Syncope secondary to intravascular depletion from a above-mentioned reasons -Hypokalemia potassium will be replaced -Acute renal failure: Improved now present creatinine is 1.28 -Chronic kidney disease stage III -Hypertension - hypothyroidism -Peripheral neuropathy
--- NOTE | 2020-05-22 16:11 | PN ---
PROGRESS NOTE DATE OF SERVICE: 05/22/2020 REASON FOR FOLLOWUP: Colitis and UTI. INTERVAL HISTORY: The patient is currently afebrile. The patient is breathing comfortably. Denies having any chest pain or shortness of breath or cough. No abdominal pain or any worsening diarrhea. PHYSICAL EXAMINATION: Her blood pressure is 125/67, pulse of 69, temperature 97.5. She is 99% on 2 L nasal cannula. General description is an elderly female lying in bed in no distress. RESPIRATORY SYSTEM: Unlabored breathing. Clear to auscultation anteriorly. HEART: S1, S2. Regular rate and rhythm. ABDOMEN: Soft. No tenderness. LABS: Hemoglobin is 10, white count 12.2 with a BUN of 11, creatinine 1.39. DIAGNOSTIC IMPRESSION AND PLAN: 1. Patient with colitis, possibly ischemic, covered with Cipro and Flagyl. 2. Urinary tract infection. Initial culture with VRE. Repeat is now yeast and she is on Diflucan; to continue. Continue with supportive care. MMODL / IJN: [id number] /
[2020-05-23 06:24] LABS: Anisocytosis Slight; HCT 32.3 % (34.0-46.0); HGB 9.4 gm/dL (11.4-16.0); MCH 30.9 pg (25.0-35.0); MCHC 28.9 g/dL (31.0-37.0); MCV 106.9 fL (80.0-100.0); Mean Platelet Volume 9.1; Platelet Count 185 k/uL (150-450); RBC 3.03 m/uL (3.80-5.40); RDW 16.5 % (11.5-15.5); WBC 12.7 k/uL (3.8-10.6)
[2020-05-23 06:33] LABS: Calcium 7.7 mg/dL (8.4-10.2); Potassium 5.2 mmol/L (3.5-5.1)
[2020-05-23] MEDS: HYDROCORTISONE 10 MG TAB PO SCH ×2 (06:57→18:02)
[2020-05-23] MEDS: LEVOTHYROXINE 88 MCG TAB PO SCH (06:57)
[2020-05-23] MEDS: SODIUM CHLORIDE 0.9% 1,000 ML IV SCH ×3 (07:00→16:35)
[2020-05-23] MEDS: DEXTROSE 5%-0.45% NACL 1,000 ML IV SCH ×3 (07:01→10:02)
[2020-05-23 07:04] LABS: Hypochromasia Marked; Macrocytosis Marked
[2020-05-23] MEDS ORDERED: traMADol 50 MG TAB PO PRN (09:23)
[2020-05-23] MEDS ORDERED: MORPHINE SULFATE 4 MG/ML SYRINGE IVP PRN (09:23)
[2020-05-23] MEDS: METOPROLOL TARTRATE 25 MG TAB PO SCH ×3 (09:57→20:25)
[2020-05-23] MEDS: MULTIVITAMINS, THERA 1 EACH TAB PO SCH (09:57)
[2020-05-23] MEDS: CIPROFLOXACIN HCL 500 MG TAB PO SCH (09:57)
[2020-05-23] MEDS: FERROUS SULFATE 325 MG TAB PO SCH (09:57)
[2020-05-23] MEDS: metroNIDAZOLE 500 MG TAB PO SCH (09:57)
[2020-05-23] MEDS: PREGABALIN 100 MG CAP PO SCH ×2 (09:57→20:25)
[2020-05-23] MEDS: allopurinoL 100 MG TAB PO SCH ×3 (09:57→20:26)
[2020-05-23] MEDS: FAMOTIDINE 20 MG/2 ML VIAL IV SCH (09:58)
[2020-05-23] MEDS: BALSALAZIDE DISODIUM 750 MG CAPSULE PO SCH ×2 (09:59→20:26)
[2020-05-23] MEDS: ALVIMOPAN 12 MG CAPSULE PO SCH ×2 (10:00→20:26)
[2020-05-23] MEDS: HEPARIN SODIUM,PORCINE 5,000 UNIT/ML 1 ML VIAL SQ SCH ×3 (10:00→22:48)
[2020-05-23] MEDS: FLUDROCORTISONE 0.1 MG TAB PO SCH ×2 (10:02→20:25)
[2020-05-23] MEDS: FLUCONAZOLE IN NACL,ISO-OSM 100 MG in SALINE 1 50ML.BAG IVPB SCH (10:06)
--- NOTE | 2020-05-23 10:18 | XR ---
EXAMINATION TYPE: XR chest 1V DATE OF EXAM: 05/23/2020 CLINICAL HISTORY: CHF TECHNIQUE: Portable upright view of the chest obtained COMPARISON: 05/11/2020 chest radiograph FINDINGS: Low lung volumes accentuates the pulmonary vasculature cardiac silhouette within upper limi ts of normal. Mediastinal silhouette normal. Left basilar atelectasis. There is small right pleural e ffusion. No pneumothorax. No evidence of displaced osseous fracture. IMPRESSION: Small right pleural effusion. Low lung volumes accentuates the pulmonary vasculature.
--- NOTE | 2020-05-23 10:47 | P.PN ---
Subjective Principal diagnosis: Fall and syncope/orthostatic hypotension Acute GI bleed possibly secondary to acute colitis suspicion for ischemic colitis Severe hypokalemia VRE/fungal UTI 05/17/2020 Patient is seen and evaluated sitting in bedside chair with family members at bedside; patient does admit to a bowel movement which was nonbloody; hemoglobin remained stable at 8.3; patient remains off of anticoagulation therapy Patient is being followed by surgery with tentative plans to proceed with surg alcira that was scheduled as an outpatient for Tuesday; patient has been evaluated by neurology with no clinical evidence of a TIA; patient has been suggested to resume anticoagulation therapy then medically/surgically cleared for stroke prevention in view of atrial fibrillation 05/18/2020; Patient is evaluated in ICU sitting up in bedside chair; denies any specific complaints Vital signs remained stable with a temperature 97.7, pulse 108, blood pressure 120/78; lab reviews reveals a hemoglobin of 7.8 and a potassium of 2.8 with creatinine up to 1.33 Possible endoscopic evaluation versus colonic resection later this week by Dr. 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 Patient does have chronic colitis for which patient is on anti-inflammatory medications. 05/21/2020 Patient is a scheduled for sigmoid colectomy today. No sick and overnight events patient Goyo is extremely low which was replaced. 05/22/2020 Patient is sigmoid colectomy doesn't have any bowel sounds today 05/23/2020 Patient kidney function worsened a bit patient resumes her was receiving supplements and less today patient is on half-normal saline which will be sw itched to normal saline. Constitutional: Denied any fatigue denied any fever. Cardio vascular: denied any chest pain, palpitations Gastrointestinal denied any nausea vomiting Pulmonary: Denied any shortness of breath cough Neurologic denied any new focal deficits All inpatient medications were reviewed and appropriate changes in these medications as dictated in the interval history and assessment and plan. Objective - Vital Signs Vital signs: Vital Signs Temp 97.5 F L 05/23/20 03:29 Pulse 100 05/23/20 03:29 Resp 18 05/23/20 03:29 BP 119/75 05/23/20 03:29 Pulse Ox 97 05/23/20 03:29 Intake & Output 05/22/20 05/23/20 05/23/20 18:59 06:59 18:59 Intake Total 120 Output Total 2750 98128 Balance -2630 -50638 Weight 113.5 kg Intake: Oral 120 Output: Urine 250 1100 Stool 2500 99123 Other: Voiding Method Indwelling Catheter Indwelling Catheter # Voids 1 - Exam PHYSICAL EXAMINATION: GENERAL: The patient is alert and oriented x3, not in any acute distress. Well developed, well nourished. HEENT: Pupils are round and equally reacting to light. EOMI. No scleral icterus. No conjunctival pallor. Normocephalic, atraumatic. No pharyngeal erythema. No thyromegaly. CARDIOVASCULAR: S1 and S2 present. No murmurs, rubs, or gallops. PULMONARY: Chest is clear to auscultation, no wheezing or crackles. ABDOMEN: Soft, nontender, nondistended, normoactive bowel sounds. No palpable organomegaly. MUSCULOSKELETAL: No joint swelling or deformity. EXTREMITIES: No cyanosis, clubbing, does have bilateral pedal edema patient does have Peoples catheter NEUROLOGICAL: Gross neurological examination did not reveal any focal deficits. SKIN: No rashes. - Labs CBC & Chem 7: 05/23/20 06:05 05/23/20 06:05 Labs: Abnormal Lab Results - Last 24 Hours (Table) 05/23/20 05/23/20 Range/Units 06:05 06:05 WBC 12.7 H (3.8-10.6) k/uL RBC 3.03 L (3.80-5.40) m/uL Hgb 9.4 L (11.4-16.0) gm/dL Hct 32.3 L (34.0-46.0) % MCV 106.9 H (80.0-100.0) fL MCHC 28.9 L (31.0-37.0) g/dL RDW 16.5 H (11.5-15.5) % Macrocytosis Marked A Sodium 136 L (137-145) mmol/L Potassium 5.2 H (3.5-5.1) mmol/L BUN 20 H (7-17) mg/dL Creatinine 1.78 H (0.52-1.04) mg/dL Glucose 218 H (74-99) mg/dL Calcium 7.7 L (8.4-10.2) mg/dL Assessment and Plan Plan: -Acute GI bleed which resolved the patient has possible sigmoid colitis can be ischemic colitis patient did undergo sigmoid colectomy does have leukocytosis which is a postoperative reactive response and patient is presently an amp antibiotics -mild acute renal failure: Probably feel azotemia nephrology will be consulted continue with IV fluids patient was receiving half-normal saline which will be changed to normal saline -Leukocytosis reactive secondary to surgery -Urinary tract infection urine cultures positive for enterococcus and Megan for which patient is on Diflucan and completed 7 days of daptomycin -Syncope secondary to intravascular depletion from a above-mentioned reasons -Hypokalemia potassium will be replaced -Acute renal failure:worse today and is around 1.78 -Chronic kidney disease stage III -Hypertension - hypothyroidism -Peripheral neuropathy
--- NOTE | 2020-05-23 11:50 | P.OP ---
Date of Procedure: 05/21/20 Preoperative Diagnosis: Colovesical fistula Postoperative Diagnosis: Incisional hernia Colovesical fistula Adhesions Kiko abdominal foreign body mesh Procedure(s) Performed: Incisional hernia Lysis of adhesions Low anterior section Removal of intraperitoneal mesh Anesthesia: MINDA Surgeon: Edd Lowery Auto Painter Helper #1: Herb Jack Estimated Blood Loss (ml): 100 Pathology: other (Mesh) Condition: stable Disposition: PACU Description of Procedure: The patient's placed on the operating table in supine position. She received general anesthesia. She was then placed in dorsal 5 position. The patient's abdomen was entered through a low midline incision. There was an incisional hernia. The Bookwalter tract with wound. There were adhesions in the pleural cavity. These were lysed with sharp dissection. The sigmoid colon was visualized. The; appeared to have some mild diverticular changes. The colon was then followed out of the pelvis and in the pelvis there was mesh encountered. The mesh appeared to be a bladder sling that was done years ago. There were significant adhesions between the mesh the bladder and the rectum. It appeared that the colovesical fistula was actually located at the level of the mesh. There is no other significant inflammatory changes. At this point it was decided to remove the mesh. The mesh was tacked was dissected off the rectum and then the mesh was taken to dissected off the bladder. Care was used to identify the left ureter. The mesh was adherent to the right iliac vein. Portion of mesh was left on the vein. The bladder was instilled with methylene blue normal saline. There is no evidence of any leakage of fluid from the bladder. At this point the white line of Toldt was divided in the left colon and sigmoid colon were mobilized. The left colon was then transected with a GI stapler and then using the Enseal device the mesentery of the sigmoid colon and rectum were divided. I then used the contour stapler the rectum was divided. The 25 mm EEA stapler anvil was placed in the proximal colon. It was secured with a pursestring. Using the 25 mm EEA stapler the corporate legal assistant placed the stapling device and the rectum. The spike was returned through the rectal staple line and then the anvil was connected to the stapler. The stapler is then closed and fired. 2 intact tissue rings were withdrawn. The hydro-critical care cns was used to then occluded the colon and then the anastomosis was checked under air insufflation. After adequate insufflation there was no evidence of any leak at the anastomosis. The abdomen was irrigated there is no bleeding seen. The fascia is closed #1 PDS suture.. Skin was closed kassandra. Patient was sent to recovery room in stable condition.
[2020-05-23] MEDS ORDERED: FUROSEMIDE 10 MG/ML 4 ML VIAL IV STA (11:51)
--- NOTE | 2020-05-23 11:54 | P.NPCON ---
History of Present Illness - Reason for Consult acute renal failure, chronic renal failure - History of Present Illness Reason for consultation: Acute kidney injury on chronic kidney disease History of present illness: Patient is a 74-year-old female seen in initial consultation for acute kidney injury on chronic kidney disease. Patient does not follow with a pharmacist helper outpatient. Patient has chronic kidney disease stage III with baseline creatinine in the range of 1.3-1.6. Etiology is nephrosclerosis. Patient presented to the hospital on 05/11/2020 with near syncopal event. Patient states she went to the bathroom and felt dizzy and lightheaded. Dose of diuretics were decreased. She was also noted to have an acute GI bleed this admission and underwent lower anterior resection and mesh removal on May 21. She's currently on clear liquid diet. Complains of edema in her lower extremity is. She denies regular use of nonsteroidals. She is maintained on IV fluids. Has a Peoples catheter. Nonoliguric. No history of diabetes. Denies family history of renal disease. No fever or chills. She is also noted to have UTI urine culture positive for Jay and VRE and is maintained on antibiotics. Hemodynamically stable. Hemoglobin also stable. Vital signs are stable. General: The patient appeared well nourished and normally developed. HEENT: Head exam is unremarkable. Neck is without jugular venous distension. LUNGS: Breath sounds decreased. HEART: Rate and Rhythm are regular. ABDOMEN: Surgical abdomen. No drainage. Nontender. EXTREMITITES: 2+ edema. 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 "Dr. Abdi Riggs fixed a hole in my heart". Cardioversion. L3-4 lumber laminectomy. per pt she is to have a bowel resection on 05/21/20 Past Anesthesia/Blood Transfusion Reactions: Motion Sickness, Postoperative Nausea & Vomiting (PONV) Additional Past Anesthesia/Blood Transfusion Reaction / Comment(s): has letter from "lindsay packer dr with anesthesia recommendations" pt to bring with her. "takes long time to come out of anesthesia" Past Psychological History: Depression Smoking Status: Never smoker Past Alcohol Use History: Occasional Past Drug Use History: None Reported - Past Family History Father Family Medical History: Myocardial Infarction (SD) Mother Family Medical History: Cancer Additional Family Medical History / Comment(s): Suspected. Medications and Allergies Home Medications Medication Instructions Recorded Confirmed Type Levothyroxine Sodium [Synthroid] 88 mcg PO DAILY 04/08/14 05/11/20 History Loperamide [Imodium] 4 mg PO DAILY PRN 04/08/14 05/11/20 History Mesalamine [Lialda] 1.2 gm PO BID 04/08/14 05/11/20 History Acetaminophen [Tylenol Extra 500 mg PO DAILY PRN 08/01/18 05/11/20 History Strength] Omeprazole [PriLOSEC] 20 mg PO AC-BRKFST PRN 08/01/18 05/11/20 History allopurinoL [Zyloprim] 100 mg PO TID 08/01/18 05/11/20 History Pregabalin [Lyrica] 200 mg PO BID 08/08/18 05/11/20 History Diphenox-Atrop 2.5-0.025 mg 2 tab PO TID-W/MEALS PRN 11/08/19 05/11/20 History [Lomotil] Ferrous Sulfate [Iron (65 MG 325 mg PO DAILY 11/08/19 05/11/20 History Elemental)] Fluticasone Nasal [place] [Flonase 2 spr EA NOSTRIL DAILY PRN 11/08/19 05/11/20 History Nasal [place]] Keybiotics 1 tab PO DAILY 11/08/19 05/11/20 History Multivitamins, Thera [Multivitamin 1 tab PO DAILY 04/28/20 05/11/20 History (formulary)] Warfarin [Coumadin] 2 mg PO DAILY 04/28/20 05/11/20 History Warfarin [Coumadin] 3 mg PO DIRECTED 04/28/20 05/11/20 History Furosemide [Lasix] 40 mg PO DAILY 30 Days #30 tab 05/05/20 05/11/20 Rx Hydrocortisone [Cortef] 10 mg PO BID 30 Days #60 tab 05/05/20 05/11/20 Rx Phenazopyridine [Pyridium] 200 mg PO TID 30 Days #90 tab 05/05/20 05/11/20 Rx Potassium Chloride ER [K-Dur 20] 20 meq PO DAILY 30 Days #30 05/05/20 05/11/20 Rx tab.er.prt Acetaminophen-Codeine 300-30mg 1 - 2 tab PO Q4H PRN 05/11/20 05/11/20 History [Tylenol w/codeine #3] Allergies Allergy/AdvReac Type Severity Reaction Status Date / Time nitrofurantoin Allergy Severe Rash/Hives Verified 05/11/20 15:48 [From Macrobid] nitrofurantoin Allergy Severe Rash/Hives Verified 05/11/20 15:48 macrocrystalline [From Macrobid] sulfamethoxazole Allergy Severe Rash/Hives Verified 05/11/20 15:48 [From Bactrim] trimethoprim [From Bactrim] Allergy Severe Rash/Hives Verified 05/11/20 15:48 hydromorphone HCl AdvReac Severe Nausea & Verified 05/11/20 15:48 [From Dilaudid] Vomiting Physical Exam Vitals: Vital Signs Temp Pulse Pulse Resp BP BP Pulse Ox 05/23/20 08:00 100 24 128/87 99 05/23/20 03:29 97.5 F L 100 16 119/75 97 05/23/20 00:00 97.8 F 92 18 108/67 96 05/22/20 20:00 105 H 16 124/70 97 05/22/20 16:00 94 16 129/71 98 05/22/20 15:45 16 05/22/20 12:00 95 16 119/75 95 05/22/20 11:55 16 Intake and Output 05/22/20 05/23/20 05/23/20 22:59 06:59 14:59 Output Total 2750 58908 Balance -2750 -25057 Output: Urine 250 850 Stool 2500 70021 Other: Voiding Method Indwelling Catheter Indwelling Catheter # Voids 1 1 Weight 113.5 kg Results - Lab Results Most recent lab results Calcium 7.7 mg/dL (8.4-10.2) L 05/23/20 06:05 Phosphorus 2.7 mg/dL (2.5-4.5) 05/11/20 13:58 Magnesium 2.0 mg/dL (1.6-2.3) 05/19/20 03:33 05/23/20 06:05 05/23/20 06:05 Assessment and Plan Plan: Assessment: 1. Acute kidney injury secondary to ATN secondary to hypotension and infection. Also component of cardiorenal syndrome. Creatinine 1.78 today. No hydronephrosis noted on CAT scan. 2. Fluid overload. 3. Acute on chronic diastolic CHF with mild to moderate tricuspid regurgitation and pulmonary hypertension. 4. Acute GI bleed status post lower anterior resection and mesh removal on May 21. 5. VRE and jay UTI maintained on antibiotics. 6. Chronic kidney disease stage III with baseline creatinine in the range of 1.3-1.6 secondary to nephrosclerosis. 7. Chronic hypotension secondary to adrenal insufficiency maintained on Cortef and Florinef. Plan: Hep-Lock IV fluids. Lasix 40 mg IV once today. Avoid nephrotoxins. Continue to monitor renal function and urine output. Thank you for the consultation. I will continue to follow the patient with you during her hospital stay.
--- NOTE | 2020-05-23 12:23 | P.PN ---
Subjective Progress Note Date: 05/23/20 CHIEF COMPLAINT: Syncope and blood in stool HISTORY OF PRESENT ILLNESS: Patient is postop day #2 status post lower anterior resection, mesh removal, lysis of adhesions and incisional hernia repair. She is confused this morning. She had morphine through the night. She is currently on a clear liquid diet. She denies any bowel movement. Denies any nausea or vomiting. Creatinine is up to 1.78. Patient has been seen by nephrology and they ordered one dose of lasix. Potassium 5.2 White count is 1 2.2 hemoglobin 9.4 afebrile. Patient was Pain medications adjusted by medicine. Patient restarted on coumadin by medicine PHYSICAL EXAM: VITAL SIGNS: Reviewed. GENERAL: Well-developed in no acute distress. HEENT: No sclera icterus. Extraocular movements grossly intact. Moist buccal mucosa. Head is atraumatic, normocephalic. ABDOMEN: Soft. Nondistended dressing incision site is clean dry and intact NEUROLOGIC: Alert and oriented. Cranial nerves II through XII grossly intact. ASSESSMENT: 1. Postoperative day #2 status post lower anterior resection, mesh removal, lysis of adhesions and incisional hernia repair 2. Acute lower GI bleed possibly secondary to diverticular bleed or from a rectal prolapse 3. Possible acute colitis, likely ischemic also can be contributing to GI bleed 4. Colovesical fistula 5. Incisional hernia PLAN: -Continue clear liquid diet -continue Antibiotics per ID -GI prophylaxis Pepcid and DVT prophylaxis subcu heparin Physician Sorter Operator note has been reviewed by physician. Signing provider agrees with the documented findings, assessment, and plan of care. Objective - Vital Signs Vital signs: Vital Signs Temp 97.5 F L 05/23/20 03:29 Pulse 100 05/23/20 08:00 Resp 24 05/23/20 08:00 BP 128/87 05/23/20 08:00 Pulse Ox 99 05/23/20 08:00 Intake & Output 05/22/20 05/23/20 05/23/20 18:59 06:59 18:59 Intake Total 120 Output Total 2750 95141 Balance -2630 -85760 Weight 113.5 kg Intake: Oral 120 Output: Urine 250 1100 Stool 2500 74341 Other: Voiding Method Indwelling Catheter Indwelling Catheter Indwelling Catheter # Voids 1 - Labs CBC & Chem 7: 05/23/20 06:05 05/23/20 06:05 Labs: Abnormal Lab Results - Last 24 Hours (Table) 05/23/20 05/23/20 Range/Units 06:05 06:05 WBC 12.7 H (3.8-10.6) k/uL RBC 3.03 L (3.80-5.40) m/uL Hgb 9.4 L (11.4-16.0) gm/dL Hct 32.3 L (34.0-46.0) % MCV 106.9 H (80.0-100.0) fL MCHC 28.9 L (31.0-37.0) g/dL RDW 16.5 H (11.5-15.5) % Macrocytosis Marked A Sodium 136 L (137-145) mmol/L Potassium 5.2 H (3.5-5.1) mmol/L BUN 20 H (7-17) mg/dL Creatinine 1.78 H (0.52-1.04) mg/dL Glucose 218 H (74-99) mg/dL Calcium 7.7 L (8.4-10.2) mg/dL
[2020-05-23 12:59] LABS: INR 2.4 (<1.2); Prothrombin Time 23.2 sec (9.0-12.0)
--- NOTE | 2020-05-23 14:03 | PN ---
PROGRESS NOTE DATE OF SERVICE: 05/23/2020 REASON FOR FOLLOWUP: 1. Colitis. 2. UTI. INTERVAL HISTORY: The patient is currently afebrile. The patient is breathing comfortably. The patient denies having any chest pain or shortness of breath or cough. Abdominal pain is currently controlled. No nausea, no vomiting or any diarrhea. PHYSICAL EXAMINATION: Blood pressure is 119/75 with pulse of 100, temperature is 97.5. She is 99% on 2 L nasal cannula. General description is an elderly female, up in the chair in no distress. RESPIRATORY SYSTEM: Unlabored breathing, clear to auscultation anteriorly. HEART: S1, S2. Regular rate and rhythm. ABDOMEN: Soft, no tenderness. LABS: Hemoglobin is 9.4, white count of 12.7, BUN of 23, creatinine 1.78. DIAGNOSTIC IMPRESSION AND PLAN: Patient with colovesical fistula status post node dissection and removal of the mesh with overall poor oral intake, antibiotic will be switched over to p.o. IV and monitor clinical course closely. Continue supportive care. MMODL / IJN: [id number] /
[2020-05-23 15:19] LABS: Glucose,Whole Blood 222 mg/dL (75-99)
[2020-05-23] MEDS: metroNIDAZOLE-NS PMX 500 MG in SALINE 1 100ML.BAG IVPB SCH ×2 (18:02→22:48)
[2020-05-23] MEDS: WARFARIN 1.5 MG TAB PO SCH (18:02)
[2020-05-23] MEDS: POTASSIUM CHLORIDE ER 20 MEQ TAB.ER PO SCH (18:39)
[2020-05-24] MEDS: HYDROCORTISONE 10 MG TAB PO SCH ×2 (06:24→17:43)
[2020-05-24] MEDS: LEVOTHYROXINE 88 MCG TAB PO SCH (06:25)
[2020-05-24 06:57] LABS: Anisocytosis Slight; HCT 29.5 % (34.0-46.0); HGB 8.8 gm/dL (11.4-16.0); Hypochromasia Marked; MCH 31.3 pg (25.0-35.0); MCHC 29.7 g/dL (31.0-37.0); MCV 105.4 fL (80.0-100.0); Macrocytosis Moderate; Mean Platelet Volume 8.9; Platelet Count 165 k/uL (150-450); RDW 16.2 % (11.5-15.5); WBC 9.6 k/uL (3.8-10.6)
[2020-05-24 07:01] LABS: Calcium 7.4 mg/dL (8.4-10.2); Magnesium 1.4 mg/dL (1.6-2.3); Potassium 3.4 mmol/L (3.5-5.1)
[2020-05-24 07:08] LABS: INR 2.5 (<1.2); Prothrombin Time 24.5 sec (9.0-12.0)
[2020-05-24] MEDS: ACETAMINOPHEN TAB 500 MG TAB PO PRN (10:03)
[2020-05-24] MEDS: MULTIVITAMINS, THERA 1 EACH TAB PO SCH (10:04)
[2020-05-24] MEDS: PREGABALIN 100 MG CAP PO SCH ×2 (10:04→21:11)
[2020-05-24] MEDS: allopurinoL 100 MG TAB PO SCH ×3 (10:04→21:11)
[2020-05-24] MEDS: METOPROLOL TARTRATE 25 MG TAB PO SCH ×3 (10:04→21:11)
[2020-05-24] MEDS: metroNIDAZOLE-NS PMX 500 MG in SALINE 1 100ML.BAG IVPB SCH ×3 (10:05→23:13)
[2020-05-24] MEDS: FERROUS SULFATE 325 MG TAB PO SCH (10:05)
[2020-05-24] MEDS: ALVIMOPAN 12 MG CAPSULE PO SCH ×2 (10:06→21:11)
[2020-05-24] MEDS: FAMOTIDINE 20 MG/2 ML VIAL IV SCH (10:06)
[2020-05-24] MEDS: BALSALAZIDE DISODIUM 750 MG CAPSULE PO SCH ×2 (10:06→21:11)
[2020-05-24] MEDS: HEPARIN SODIUM,PORCINE 5,000 UNIT/ML 1 ML VIAL SQ SCH ×3 (10:07→23:12)
[2020-05-24] MEDS: FLUDROCORTISONE 0.1 MG TAB PO SCH ×2 (10:07→21:11)
[2020-05-24] MEDS: FLUCONAZOLE IN NACL,ISO-OSM 100 MG in SALINE 1 50ML.BAG IVPB SCH (12:02)
[2020-05-24 12:03] LABS: Glucose,Whole Blood 191 mg/dL (75-99)
[2020-05-24] MEDS: FUROSEMIDE 10 MG/ML 4 ML VIAL IV SCH (12:09)
--- NOTE | 2020-05-24 12:32 | PN ---
PROGRESS NOTE Patient is seen for follow up for acute kidney injury on top of chronic kidney disease. The patient is currently comfortable. She denies any significant complaints. She is sitting up in a bedside chair. Her legs have been swollen. Patient did receive a dose of IV Lasix yesterday. She denies any chest pains or shortness of breath. PHYSICAL EXAMINATION: On examination today, blood pressure was 107/67, heart rate 95 per minute. She is afebrile. Examination of the heart S1, S2. Examination of the lungs, bilateral breath sounds are heard. Abdomen is soft, obese, nontender. Examination of lower extremities shows edema 2+ bilaterally. IAP DISPLAYS ANALYST exam grossly intact. LAB: Show sodium 138, potassium 3.4, chloride 107, BUN 18, serum creatinine 1.63, magnesium 1.4, hemoglobin 8.8 g/dL. ASSESSMENT: 1. Acute kidney injury secondary to acute tubular necrosis from hypotension and infection. Possible cardiorenal syndrome as well. Renal function fairly stable. 2. Fluid overload status post IV Lasix yesterday. I will maintain on IV Lasix once a day. 3. Acute on chronic diastolic congestive heart failure with mild to moderate tricuspid regurgitation and pulmonary hypertension. 4. Chronic hypotension associated with renal insufficiency. Maintained on Cortef and Florinef. 5. Chronic kidney disease stage 3. Baseline creatinine 1.3-1.6 secondary to nephrosclerosis. 6. Vancomycin-resistant enterococci and Megan urinary tract infection, maintained on antibiotics and antifungals. PLAN: Continue with the Cortef. I will discontinue the Florinef. I will continue off Florinef because of significant edema and maintain patient on a daily dose of Lasix for now. She is encouraged to avoid high salt-containing foods and maintain some degree of fluid restriction. MMODL / IJN: [id number] /
--- NOTE | 2020-05-24 15:40 | P.PN ---
Subjective Progress Note Date: 05/24/20 CHIEF COMPLAINT: Colovesical fistula HISTORY OF PRESENT ILLNESS: The patient is a 74-year-old female status post low anterior resection for colovesical fistula. She is sitting up in chair. Her pain is well controlled. No complaints. Family is at bedside. She is tolerating liquids. No bowel movements. ROS: No reports of nausea and vomiting. No bowel movements. No fevers or chills. No new chest pain. No productive sputum PHYSICAL EXAM: VITAL SIGNS: Reviewed CONSTITUTIONAL: Well developed and in no acute distress. EYES: Conjuctivae without sclera icterus. Extraocular movements grossly intact. HEAD, EARS, NOSE, THROAT: Moist buccal mucosa. Head is atraumatic, normocephalic. Hears conversational speech. No nasal drainage. RESPIRATORY: Non-labored respirations and equal bilateral excursions. CARDIOVASCULAR: Palpable 2+ radial pulses. ABDOMEN: Protuberant. Dressing intact. MUSCULOSKELETAL: No gross deformity of the lower extremities noted. No clubbing. No cyanosis. SKIN: Good skin turgor. Well perfused. NEUROLOGIC: Cranial nerves II through XII grossly intact. No focal or lateralizing signs. PSYCH: Appropriate affect. Alert and oriented to person, place and time. CLINICAL LABS: White blood cell count normal, 9.6. Hgb 8.8 down from 9.4 ASSESSMENT: 1. Colovesical fistula PLAN: 1. Recommend PT/OT when available 2. Await bowel function prior to advancing diet. Objective - Vital Signs Vital signs: Vital Signs Temp 98.1 F 05/24/20 11:20 Pulse 76 05/24/20 11:20 Resp 16 05/24/20 11:20 BP 129/79 05/24/20 11:20 Pulse Ox 100 05/24/20 11:20 Intake & Output 05/23/20 05/24/20 05/24/20 18:59 06:59 18:59 Intake Total 600 Output Total 500 2850 1450 Balance -500 -2850 -850 Weight 113.5 kg 117.5 kg Intake: Oral 600 Output: Urine 500 2850 1450 Uretheral (Peoples) 2850 Other: Voiding Method Indwelling Catheter Indwelling Catheter Indwelling Catheter - Labs CBC & Chem 7: 05/25/20 06:14 05/25/20 15:02 Labs: Abnormal Lab Results - Last 24 Hours (Table) 05/24/20 05/24/20 05/24/20 Range/Units 06:07 06:07 06:07 RBC 2.80 L (3.80-5.40) m/uL Hgb 8.8 L (11.4-16.0) gm/dL Hct 29.5 L (34.0-46.0) % MCV 105.4 H (80.0-100.0) fL MCHC 29.7 L (31.0-37.0) g/dL RDW 16.2 H (11.5-15.5) % PT 24.5 H (9.0-12.0) sec INR 2.5 H (<1.2) Potassium 3.4 L (3.5-5.1) mmol/L BUN 18 H (7-17) mg/dL Creatinine 1.63 H (0.52-1.04) mg/dL Glucose 135 H (74-99) mg/dL POC Glucose (mg/dL) (75-99) mg/dL Calcium 7.4 L (8.4-10.2) mg/dL Magnesium 1.4 L (1.6-2.3) mg/dL 05/24/20 Range/Units 12:02 RBC (3.80-5.40) m/uL Hgb (11.4-16.0) gm/dL Hct (34.0-46.0) % MCV (80.0-100.0) fL MCHC (31.0-37.0) g/dL RDW (11.5-15.5) % PT (9.0-12.0) sec INR (<1.2) Potassium (3.5-5.1) mmol/L BUN (7-17) mg/dL Creatinine (0.52-1.04) mg/dL Glucose (74-99) mg/dL POC Glucose (mg/dL) 191 H (75-99) mg/dL Calcium (8.4-10.2) mg/dL Magnesium (1.6-2.3) mg/dL
--- NOTE | 2020-05-24 16:38 | PN ---
PROGRESS NOTE DATE OF SERVICE: 05/24/2020 REASON FOR FOLLOWUP: Colovesical fistula and UTI. INTERVAL HISTORY: The patient is currently afebrile. The patient is breathing comfortably. The patient abdominal pain is currently controlled. No chest pain, shortness of breath or cough. No nausea, vomiting and no diarrhea. PHYSICAL EXAMINATION: Blood pressure 129/79, pulse of 73, temperature 98.1. She is 100% on 2 L nasal cannula. General description is an elderly female up in the chair in no distress. Respiratory system: Unlabored breathing, clear to auscultation anteriorly. Heart S1, S2. Regular rate and rhythm. Abdomen soft, no guarding and no rigidity. Extremities: No edema of the feet. LABS: Hemoglobin 8.8, white count 9.7, BUN of 18, creatinine 1.63. DIAGNOSTIC IMPRESSION AND PLAN: Patient with colovesical fistula and urinary tract infection status post low anterior resection. The patient seemed to have shown clinical improvement. She currently covered with Rocephin and Flagyl to continue. White count normalized and monitor clinical course closely. MMODL / IJN: [id number] /
--- NOTE | 2020-05-24 17:27 | PN ---
PROGRESS NOTE DATE OF SERVICE: 05/24/2020 INTERVAL HISTORY: This 74-year-old woman was admitted with acute gastrointestinal bleed, had sigmoid colitis and ischemic colitis. Patient's had subtotal colectomy. The patient is mildly confused. Patient is followed by Dr. Johnny To in the outpatient setting. The cytology for the surgical specimen showed diverticulosis. PT,OT evaluated the patient. PAST MEDICAL HISTORY: Reviewed. REVIEW OF SYSTEMS: CARDIOVASCULAR: As mentioned earlier. RESPIRATION. As mentioned earlier. GI: As mentioned earlier. : As mentioned earlier. NERVOUS SYSTEM: No numbness or weakness. CURRENT MEDICATIONS: Reviewed and include Tylenol No.3, zyloprim, Entereg, Clozaril, Rocephin, Pepcid, iron sulfate, fluconazole, Lasix, heparin, Cortef, Synthroid, Imodium, Reglan, lopressor, morphine, multivitamins, Ultram, Coumadin. PHYSICAL EXAM: GENERAL: Patient is alert, oriented x2. VITAL SIGNS: Pulse 76, blood pressure 129/79, respirations 16, temperature 98.2, pulse ox 100 percent on 2 L. HEENT: Conjunctivae normal. NECK: No jugular venous distention. RESPIRATORY: Breath sounds diminished at the bases. A few scattered rhonchi and crackles. HEART: S1 and S2, muffled. ABDOMEN: Soft, no tenderness. The patient is status post recent surgery. EXTREMITIES: No edema, no swelling. NERVOUS SYSTEM: No focal deficits. Mild diffuse weakness. LAB: WBC 9.2, hemoglobin is 8.8, INR 2.4. Sodium 130, potassium 3.5, creatinine 1.64, and magnesium 1.4. ASSESSMENT: 1. Acute gastrointestinal bleed with possibly some sigmoid diverticulosis, status post sigmoid colectomy. 2. Change in mental status, possible acute delirium postoperatively as expected. 3. Acute renal failure and azotemia. 4. Leukocytosis. 5. Urinary tract infection with culture positive for Enterococcus and Megan. 6. History of syncope with intravascular volume depletion. 7. Hypokalemia. 8. Acute renal failure present on admission. 9. Hypertension. 10.Hypothyroidism. 11.History of peripheral neuropathy. 12.History of chronic kidney disease stage III. RECOMMENDATIONS AND DISCUSSION: This 74-year-old woman who presented with multiple complex medical issues, we will monitor the patient closely. Continue the current management and continue symptomatic treatment. Continue with antibiotics. Otherwise, PT,OT evaluation, possible ECF rehab. Supplement vitamins. DVT prophylaxis. Proton pump inhibitors. Further recommendations to follow. Monitor the Coumadin also. The INR is 2.5 today. MMODL / IJN: [id number] / MTDD
[2020-05-24] MEDS: POTASSIUM CHLORIDE ER 20 MEQ TAB.ER PO SCH ×2 (17:41→21:11)
[2020-05-24] MEDS: WARFARIN 1.5 MG TAB PO SCH (17:43)
[2020-05-24] MEDS: PANTOPRAZOLE 40 MG TABLET PO SCH (17:45)
[2020-05-25] MEDS: PANTOPRAZOLE 40 MG TABLET PO SCH (06:26)
[2020-05-25] MEDS: HYDROCORTISONE 10 MG TAB PO SCH ×2 (06:26→20:52)
[2020-05-25] MEDS: LEVOTHYROXINE 88 MCG TAB PO SCH (06:26)
[2020-05-25 06:55] LABS: Basophils % (A) 0 %; Eosinophils # (A) 0.1 k/uL (0-0.7); Eosinophils % (A) 1 %; HCT 26.4 % (34.0-46.0); HGB 8.1 gm/dL (11.4-16.0); Hypochromasia Marked; Lymphocytes # (A) 0.8 k/uL (1.0-4.8); Lymphocytes % (A) 15 %; MCH 31.6 pg (25.0-35.0); MCHC 30.5 g/dL (31.0-37.0); MCV 103.4 fL (80.0-100.0); Macrocytosis Moderate; Mean Platelet Volume 9.4; Monocytes # (A) 0.3 k/uL (0-1.0); Monocytes % (A) 6 %; Neutrophils # (A) 4.3 k/uL (1.3-7.7); Neutrophils % (A) 76 %; Platelet Count 133 k/uL (150-450); RBC 2.55 m/uL (3.80-5.40); WBC 5.6 k/uL (3.8-10.6)
[2020-05-25 06:59] LABS: INR 3.3 (<1.2); Prothrombin Time 32.7 sec (9.0-12.0)
[2020-05-25 07:05] LABS: Calcium 6.7 mg/dL (8.4-10.2)
[2020-05-25 07:15] LABS: Potassium 2.7 mmol/L (3.5-5.1)
[2020-05-25] MEDS: HEPARIN SODIUM,PORCINE 5,000 UNIT/ML 1 ML VIAL SQ SCH (08:39)
[2020-05-25] MEDS: metroNIDAZOLE-NS PMX 500 MG in SALINE 1 100ML.BAG IVPB SCH ×3 (08:39→23:18)
[2020-05-25] MEDS: FUROSEMIDE 10 MG/ML 4 ML VIAL IV SCH (08:39)
[2020-05-25] MEDS: FLUDROCORTISONE 0.1 MG TAB PO SCH ×2 (08:40→20:53)
[2020-05-25] MEDS: PREGABALIN 100 MG CAP PO SCH ×2 (08:40→20:52)
[2020-05-25] MEDS: FERROUS SULFATE 325 MG TAB PO SCH (08:40)
[2020-05-25] MEDS: allopurinoL 100 MG TAB PO SCH ×3 (08:40→16:01)
[2020-05-25] MEDS: MULTIVITAMINS, THERA 1 EACH TAB PO SCH (08:40)
[2020-05-25] MEDS: POTASSIUM CHLORIDE ER 20 MEQ TAB.ER PO SCH ×5 (08:40→16:01)
[2020-05-25] MEDS: METOPROLOL TARTRATE 25 MG TAB PO SCH ×3 (08:40→20:52)
[2020-05-25] MEDS: BALSALAZIDE DISODIUM 750 MG CAPSULE PO SCH ×2 (08:41→20:53)
[2020-05-25] MEDS: ALVIMOPAN 12 MG CAPSULE PO SCH ×2 (08:42→20:53)
[2020-05-25] MEDS: FLUCONAZOLE IN NACL,ISO-OSM 100 MG in SALINE 1 50ML.BAG IVPB SCH (09:51)
--- NOTE | 2020-05-25 10:40 | P.GSCN ---
History of Present Illness Consult date: 05/21/20 Reason for Consult: Colovesical fistula, pelvic mesh Requesting physician: Edd Lowery History of present illness: The patient is known to me. She has been diagnosed with a colovesical fistula. Dr. Lowery has taken her to the OR with the intent of performing a low anterior resection. He was contacted by the patient's long-time semiconductor packages platemaker, who explained that the patient previously underwent a procedure in the remote past that involved the placement of pelvic mesh. Dr. Lowery encountered the mesh extending from the left pubic tubercle over the bladder dome, and onto the right iliac vessels. I assisted him in the removal of the mesh. The vast majority of the mesh was removed, including that which was overlying the right external iliac vein, leaving only a small piece of the mesh immediately adjacent to the right external iliac artery. The Peoples catheter could be palpated within the bladder, and there were no visible bladder wall defects. The bladder was then filled with 220 mL of methylene blue, with no evidence of extravasation. The bladder was drained at this point, and Dr. Lowery then proceeded to complete the colonic anastomosis. 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 "Dr. Abdi Riggs fixed a hole in my heart". Cardioversion. L3-4 lumber laminectomy. per pt she is to have a bowel resection on 05/21/20 Past Anesthesia/Blood Transfusion Reactions: Motion Sickness, Postoperative Nausea & Vomiting (PONV) Additional Past Anesthesia/Blood Transfusion Reaction / Comm: has letter from "post polio with anesthesia recommendations" pt to bring with her. "takes long time to come out of anesthesia" Past Psychological History: Depression Smoking Status: Never smoker Past Alcohol Use History: Occasional Past Drug Use History: None Reported - Past Family History Father Family Medical History: Myocardial Infarction ([place]) Mother Family Medical History: Cancer Additional Family Medical History / Comment(s): Suspected. Medications and Allergies Home Medications Medication Instructions Recorded Confirmed Type Levothyroxine Sodium [Synthroid] 88 mcg PO DAILY 04/08/14 05/11/20 History Loperamide [Imodium] 4 mg PO DAILY PRN 04/08/14 05/11/20 History Mesalamine [Lialda] 1.2 gm PO BID 04/08/14 05/11/20 History Acetaminophen [Tylenol Extra 500 mg PO DAILY PRN 08/01/18 05/11/20 History Strength] Omeprazole [PriLOSEC] 20 mg PO AC-BRKFST PRN 08/01/18 05/11/20 History allopurinoL [Zyloprim] 100 mg PO TID 08/01/18 05/11/20 History Pregabalin [Lyrica] 200 mg PO BID 08/08/18 05/11/20 History Diphenox-Atrop 2.5-0.025 mg 2 tab PO TID-W/MEALS PRN 11/08/19 05/11/20 History [Lomotil] Ferrous Sulfate [Iron (65 MG 325 mg PO DAILY 11/08/19 05/11/20 History Elemental)] Fluticasone Nasal [place] [Flonase 2 spr EA NOSTRIL DAILY PRN 11/08/19 05/11/20 History Nasal [place]] Keybiotics 1 tab PO DAILY 11/08/19 05/11/20 History Multivitamins, Thera [Multivitamin 1 tab PO DAILY 04/28/20 05/11/20 History (formulary)] Warfarin [Coumadin] 2 mg PO DAILY 04/28/20 05/11/20 History Warfarin [Coumadin] 3 mg PO DIRECTED 04/28/20 05/11/20 History Furosemide [Lasix] 40 mg PO DAILY 30 Days #30 tab 05/05/20 05/11/20 Rx Hydrocortisone [Cortef] 10 mg PO BID 30 Days #60 tab 05/05/20 05/11/20 Rx Phenazopyridine [Pyridium] 200 mg PO TID 30 Days #90 tab 05/05/20 05/11/20 Rx Potassium Chloride ER [K-Dur 20] 20 meq PO DAILY 30 Days #30 05/05/20 05/11/20 Rx tab.er.prt Acetaminophen-Codeine 300-30mg 1 - 2 tab PO Q4H PRN 05/11/20 05/11/20 History [Tylenol w/codeine #3] Allergies Allergy/AdvReac Type Severity Reaction Status Date / Time nitrofurantoin Allergy Severe Rash/Hives Verified 05/11/20 15:48 [From Macrobid] nitrofurantoin Allergy Severe Rash/Hives Verified 05/11/20 15:48 macrocrystalline [From Macrobid] sulfamethoxazole Allergy Severe Rash/Hives Verified 05/11/20 15:48 [From Bactrim] trimethoprim [From Bactrim] Allergy Severe Rash/Hives Verified 05/11/20 15:48 hydromorphone HCl AdvReac Severe Nausea & Verified 05/11/20 15:48 [From Dilaudid] Vomiting Surgical - Exam Vital Signs Temp Pulse Resp BP Pulse Ox 97.9 F 96 18 116/69 96 05/11/20 13:36 05/11/20 13:36 05/11/20 13:36 05/11/20 13:36 05/11/20 13:36 Results - Labs 05/21/20 18:58 05/21/20 18:58 Abnormal Lab Results - Last 24 Hours (Table) 05/21/20 05/21/20 05/21/20 Range/Units 04:18 04:18 09:45 RBC 2.66 L (3.80-5.40) m/uL Hgb 8.4 L (11.4-16.0) gm/dL Hct 28.0 L (34.0-46.0) % MCV 105.1 H (80.0-100.0) fL MCHC 29.9 L (31.0-37.0) g/dL RDW 16.2 H (11.5-15.5) % Potassium 2.3 L* 2.8 L (3.5-5.1) mmol/L Chloride 110 H 110 H (98-107) mmol/L Creatinine 1.14 H 1.18 H (0.52-1.04) mg/dL Glucose 113 H 111 H (74-99) mg/dL POC Glucose (mg/dL) (75-99) mg/dL Calcium 7.5 L 7.4 L (8.4-10.2) mg/dL Crossmatch 05/21/20 05/21/20 Range/Units 11:45 13:33 RBC (3.80-5.40) m/uL Hgb (11.4-16.0) gm/dL Hct (34.0-46.0) % MCV (80.0-100.0) fL MCHC (31.0-37.0) g/dL RDW (11.5-15.5) % Potassium (3.5-5.1) mmol/L Chloride (98-107) mmol/L Creatinine (0.52-1.04) mg/dL Glucose (74-99) mg/dL POC Glucose (mg/dL) 143 H (75-99) mg/dL Calcium (8.4-10.2) mg/dL Crossmatch See Detail Diabetes panel 05/21/20 05/21/20 05/21/20 Range/Units 04:18 09:45 11:45 Sodium 140 143 (137-145) mmol/L Potassium 2.3 L* 2.8 L 4.2 (3.5-5.1) mmol/L Chloride 110 H 110 H (98-107) mmol/L Carbon Dioxide 25 29 (22-30) mmol/L BUN 8 7 (7-17) mg/dL Creatinine 1.14 H 1.18 H (0.52-1.04) mg/dL Glucose 113 H 111 H (74-99) mg/dL Calcium 7.5 L 7.4 L (8.4-10.2) mg/dL 05/21/20 Range/Units 14:45 Sodium (137-145) mmol/L Potassium 4.4 (3.5-5.1) mmol/L Chloride (98-107) mmol/L Carbon Dioxide (22-30) mmol/L BUN (7-17) mg/dL Creatinine (0.52-1.04) mg/dL Glucose (74-99) mg/dL Calcium (8.4-10.2) mg/dL Calcium panel 05/21/20 05/21/20 Range/Units 04:18 09:45 Calcium 7.5 L 7.4 L (8.4-10.2) mg/dL Pituitary panel 05/21/20 05/21/20 05/21/20 Range/Units 04:18 09:45 11:45 Sodium 140 143 (137-145) mmol/L Potassium 2.3 L* 2.8 L 4.2 (3.5-5.1) mmol/L Chloride 110 H 110 H (98-107) mmol/L Carbon Dioxide 25 29 (22-30) mmol/L BUN 8 7 (7-17) mg/dL Creatinine 1.14 H 1.18 H (0.52-1.04) mg/dL Glucose 113 H 111 H (74-99) mg/dL Calcium 7.5 L 7.4 L (8.4-10.2) mg/dL 05/21/20 Range/Units 14:45 Sodium (137-145) mmol/L Potassium 4.4 (3.5-5.1) mmol/L Chloride (98-107) mmol/L Carbon Dioxide (22-30) mmol/L BUN (7-17) mg/dL Creatinine (0.52-1.04) mg/dL Glucose (74-99) mg/dL Calcium (8.4-10.2) mg/dL Adrenal panel 05/21/20 05/21/20 05/21/20 Range/Units 04:18 09:45 11:45 Sodium 140 143 (137-145) mmol/L Potassium 2.3 L* 2.8 L 4.2 (3.5-5.1) mmol/L Chloride 110 H 110 H (98-107) mmol/L Carbon Dioxide 25 29 (22-30) mmol/L BUN 8 7 (7-17) mg/dL Creatinine 1.14 H 1.18 H (0.52-1.04) mg/dL Glucose 113 H 111 H (74-99) mg/dL Calcium 7.5 L 7.4 L (8.4-10.2) mg/dL 05/21/20 Range/Units 14:45 Sodium (137-145) mmol/L Potassium 4.4 (3.5-5.1) mmol/L Chloride (98-107) mmol/L Carbon Dioxide (22-30) mmol/L BUN (7-17) mg/dL Creatinine (0.52-1.04) mg/dL Glucose (74-99) mg/dL Calcium (8.4-10.2) mg/dL - Imaging CT scan - abdomen: report reviewed, image reviewed Assessment and Plan (1) Colovesical fistula Current Visit: Yes Status: Acute Code(s): N32.1 - VESICOINTESTINAL FISTULA SNOMED Code(s): 95342052
--- NOTE | 2020-05-25 11:09 | P.PN ---
Progress Note - Text Progress Note Date: 05/25/20 The patient was tolerating diet. She had a bowel movement this morning. The Peoples catheter is draining clear yellow urine. From a urologic standpoint, she will be discharged home with the catheter and follow up with me as an outpatient. Please notify us if we can be of any further assistance during this hospitalization.
[2020-05-25] MEDS: THIAMINE 100 MG TAB PO SCH (11:11)
[2020-05-25] MEDS: FOLIC ACID 1 MG TAB PO SCH (11:11)
--- NOTE | 2020-05-25 13:26 | P.PN ---
Subjective Progress Note Date: 05/25/20 CHIEF COMPLAINT: Colovesical fistula HISTORY OF PRESENT ILLNESS: The patient is a 74-year-old female status post low anterior resection for colovesical fistula. She is sitting up in chair. She had 3 bowel movements today. "I am about to walk." Her family is at bedside. Her pain is controlled. She tolerated soft diet. ROS: No reports of nausea and vomiting. No fevers or chills. No new chest pain. No productive sputum PHYSICAL EXAM: VITAL SIGNS: Reviewed CONSTITUTIONAL: Well developed and in no acute distress. EYES: Conjuctivae without sclera icterus. Extraocular movements grossly intact. HEAD, EARS, NOSE, THROAT: Moist buccal mucosa. Head is atraumatic, normocephalic. Hears conversational speech. No nasal drainage. RESPIRATORY: Non-labored respirations and equal bilateral excursions. CARDIOVASCULAR: Palpable 2+ radial pulses. ABDOMEN: Protuberant. Dressing intact. MUSCULOSKELETAL: No gross deformity of the lower extremities noted. No clubbing. No cyanosis. SKIN: Good skin turgor. Well perfused. NEUROLOGIC: Cranial nerves II through XII grossly intact. No focal or later alizing signs. PSYCH: Appropriate affect. Alert and oriented to person, place and time. CLINICAL LABS: White blood cell count normal, 9.6 now 5.6. Hgb 8.8 down from 9.4, now 8.1. ASSESSMENT: 1. Colovesical fistula PLAN: 1. Diet as tolerated 2. PT/OT pending 3. Disposition home versus rehab pending PT/OT recommendations Objective - Vital Signs Vital signs: Vital Signs Temp 97.6 F 05/25/20 11:34 Pulse 87 05/25/20 11:34 Resp 18 05/25/20 11:34 BP 144/75 05/25/20 11:34 Pulse Ox 98 05/25/20 11:34 Intake & Output 05/24/20 05/25/20 05/25/20 18:59 06:59 18:59 Intake Total 1080 960 Output Total 1450 2100 800 Balance -370 -2100 160 Weight 116.5 kg Intake: Oral 1080 960 Output: Urine 1450 2100 800 Uretheral (Peoples) 800 Other: Voiding Method Indwelling Catheter Indwelling Catheter Indwelling Catheter # Voids 1 # Bowel Movements 1 - Labs CBC & Chem 7: 05/25/20 06:14 05/25/20 15:02 Labs: Abnormal Lab Results - Last 24 Hours (Table) 05/25/20 05/25/20 05/25/20 Range/Units 06:14 06:14 06:14 RBC 2.55 L (3.80-5.40) m/uL Hgb 8.1 L (11.4-16.0) gm/dL Hct 26.4 L (34.0-46.0) % MCV 103.4 H (80.0-100.0) fL MCHC 30.5 L (31.0-37.0) g/dL RDW 16.0 H (11.5-15.5) % Plt Count 133 L (150-450) k/uL Lymphocytes # 0.8 L (1.0-4.8) k/uL PT 32.7 H (9.0-12.0) sec INR 3.3 H (<1.2) Potassium 2.7 L* (3.5-5.1) mmol/L Creatinine 1.45 H (0.52-1.04) mg/dL Glucose 122 H (74-99) mg/dL Calcium 6.7 L (8.4-10.2) mg/dL Assessment and Plan (1) S/P colectomy Current Visit: Yes Status: Acute Code(s): Z90.49 - ACQUIRED ABSENCE OF OTHER SPECIFIED PARTS OF DIGESTIVE TRACT SNOMED Code(s): 803291975 (2) Acute renal failure Current Visit: Yes Status: Acute Code(s): N17.9 - ACUTE KIDNEY FAILURE, UNSPECIFIED SNOMED Code(s): 32418881 (3) Colovesical fistula Current Visit: Yes Status: Acute Code(s): N32.1 - VESICOINTESTINAL FISTULA SNOMED Code(s): 73772519
[2020-05-25] MEDS ORDERED: Magnesium Replacement Protocol 1 EACH MISC MISCELLANE PRN (13:55)
[2020-05-25] MEDS ORDERED: Potassium Replacement Protocol 1 EACH MISC MISCELLANE PRN (13:55)
--- NOTE | 2020-05-25 15:38 | PN ---
PROGRESS NOTE Patient is seen for follow up for acute kidney injury on top of chronic kidney disease. Renal function has been improving. The patient is currently volume overloaded and was started on IV Lasix yesterday. PHYSICAL EXAMINATION: On examination today, blood pressure is 144/75, heart rate 87 per minute. She is afebrile. Examination of the heart S1, S2. Examination of lungs decreased breath sounds at bases. ABDOMEN: Soft, obese. Exam of lower extremities shows edema 2 to 3+ bilaterally. BOILERMAKER FITTER exam grossly intact. LABS: Show sodium 137, potassium 2.7, chloride 105, BUN 14, serum creatinine 1.45, hemoglobin 8.1 g/dL. ASSESSMENT: 1. Acute kidney injury, nonoliguric, mostly from hypotension an ATN, currently improving. 2. Fluid overload started on IV Lasix. Continue with the current dose. 3. Acute on chronic diastolic congestive heart failure with mild to moderate tricuspid regurg and pulmonary hypertension. 4. Chronic hypotension associated with adrenal insufficiency maintained on Cortef. 5. VRE and Megan urinary tract infections, maintained on antibiotics and antifungal treatment. PLAN: Continue with IV Lasix. Repeat labs in a.m. Replace potassium. MMODL / IJN: [id number] /
[2020-05-25] MEDS: MAGNESIUM SULFATE-D5W PMX 1 GM in DEXTROSE/WATER 1 100ML.BAG IVPB SCH ×4 (15:46→18:55)
--- NOTE | 2020-05-25 16:26 | PN ---
PROGRESS NOTE DATE OF SERVICE: 05/25/2020 INTERVAL HISTORY: This 74-year-old woman was admitted with acute gastrointestinal bleed. Had sigmoid colitis and ischemic colitis. The patient had subtotal colectomy. The patient was mildly confused. Currently the patient is closely monitored at this time. Surgery has advanced the diet. Hemoglobin is 8.1, and potassium is 2.7 and creatinine is 1.45. Magnesium is 1.2. PAST MEDICAL HISTORY: Reviewed. REVIEW OF SYSTEMS: CARDIOVASCULAR: No angina or palpitations. RESPIRATORY: As mentioned earlier. GI: As mentioned earlier. : No dysuria. NERVOUS SYSTEM: No numbness or weakness. CURRENT MEDICATIONS: Reviewed include Tylenol, Zyloprim, Imdur, Clozaril, Rocephin 2 grams, iron sulfate, fluconazole, Lasix, Cortef, Imodium, Lopressor, Flagyl, p.r.n. medications, multivitamins, Zofran, Protonix, Ultram. PHYSICAL EXAM: GENERAL: Patient is alert, oriented x3. VITAL SIGNS: Pulse 87, blood pressure 144/75, respiration 18, temperature 97.2, pulse ox 98% on room air. HEENT: Conjunctivae normal. Oral mucosa is moist. NECK: No jugular venous distention. No carotid bruits. No lymph node enlargement. RESPIRATORY: Breath sounds diminished at the bases. A few scattered rhonchi and crackles. HEART: S1 and S2, muffled. ABDOMEN: Soft, status post surgery. EXTREMITIES: No edema, no swelling. NERVOUS: No focal deficits. LABS: WBC 5.7, hemoglobin is 8.1, platelets 133. INR 3.3. Sodium 137, potassium 2.7. ASSESSMENT: 1. Acute gastrointestinal bleed with possibly sigmoid diverticulosis, status post sigmoid colectomy. 2. Change in mental status ,acute delirium postoperatively as expected, improving. 3. Acute renal failure. Azotemia, prerenal with acute tubular necrosis. 4. Leukocytosis. 5. Urinary tract infection with Enterococcus and Megan. 6. History of syncope with intravascular volume depletion. 7. Hypokalemia. 8. Acute renal failure present on admission. 9. Hypertension. 10.Hypothyroidism. 11.History of peripheral neuropathy. 12.History of chronic kidney disease stage 3. 13.Severe hypokalemia. 14.Anemia, macrocytic. 15.Mild thrombocytopenia. 16.Mild Coumadin coagulopathy. 17.Hypomagnesemia. RECOMMENDATIONS AND DISCUSSION: In this 74-year-old woman who presented with multiple complex, we will monitor the patient closely. Continue the current management, continue symptomatic treatment. We will supplement potassium. Repeat potassium and lytes at the evening at 6 o'clock and continue to monitor. Check magnesium and replace magnesium. Otherwise, continue with symptomatic treatment. Otherwise, the delirium appears to be slightly improved. Will hold the Coumadin at this time. Monitor PT, INR closely. Repeat labs are ordered. The prognosis is extremely guarded because of multiple complex medical issues. Discussed with the family who understands. Further recommendations to follow. MMODL / IJN: [id number] /
[2020-05-25 16:33] LABS: Appearance,Urine Clear (Clear); Bilirubin,Urine Negative (Negative); Blood,Urine Negative (Negative); Color,Urine Yellow; Glucose,Urine (UA) Negative (Negative); Hyaline Casts,Urine 1 /lpf (0-2); Ketones,Urine Negative (Negative); Leukocyte Esterase,Urine Trace (Negative); Mucus,Urine Rare /hpf; Nitrite,Urine Negative (Negative); Protein,Urine Negative (Negative); RBC,Urine 1 /hpf (0-5); Specific Gravity,Urine 1.006 (1.001-1.035); Urobilinogen,Urine <2.0 mg/dL (<2.0); WBC,Urine 2 /hpf (0-5)
[2020-05-25] MEDS: ACETAMINOPHEN TAB 500 MG TAB PO PRN (20:52)
--- NOTE | 2020-05-26 00:37 | PN ---
PROGRESS NOTE DATE OF SERVICE: 05/25/2020 REASON FOR FOLLOWUP: Colovesical fistula. INTERVAL HISTORY: Patient is currently afebrile. Patient is breathing comfortably. She has been started on a diet which the patient tolerated this afternoon. Denies having any nausea or vomiting. No chest pain, shortness of breath or cough. No abdominal pain or no diarrhea. PHYSICAL EXAMINATION: Blood pressure 133/86, pulse is 75, temperature 97.3. She is 97% on room air. General description is an elderly female up in the bed in no distress. RESPIRATORY SYSTEM: Unlabored breathing, clear to auscultation anteriorly. HEART: S1, S2. Regular rate and rhythm. ABDOMEN: Soft, no tenderness. LABS: Hemoglobin 8.1, white count 5.6, BUN of 14, creatinine 1.45. DIAGNOSTIC IMPRESSION AND PLAN: 1. Patient with colovesical fistula with history of recurrent urinary tract infection in this patient overall clinical improvement. Currently on Rocephin and Flagyl to continue. 2. Patient with urinary tract infection with culture was Megan while patient on Diflucan. Previous culture with VRE that has been adequately treated. MMODL / IJN: [id number] /
[2020-05-26] MEDS: PANTOPRAZOLE 40 MG TABLET PO SCH (06:20)
[2020-05-26] MEDS: HYDROCORTISONE 10 MG TAB PO SCH ×2 (06:20→16:09)
[2020-05-26] MEDS: LEVOTHYROXINE 88 MCG TAB PO SCH (06:20)
[2020-05-26 07:52] LABS: Calcium 7.2 mg/dL (8.4-10.2); Magnesium 1.8 mg/dL (1.6-2.3); Prothrombin Time 28.8 sec (9.0-12.0)
[2020-05-26 07:53] LABS: Basophils % (A) 0 %; Eosinophils # (A) 0.1 k/uL (0-0.7); Eosinophils % (A) 2 %; HCT 31.2 % (34.0-46.0); HGB 9.1 gm/dL (11.4-16.0); Hypochromasia Marked; Lymphocytes # (A) 0.6 k/uL (1.0-4.8); Lymphocytes % (A) 9 %; MCH 30.4 pg (25.0-35.0); MCHC 29.3 g/dL (31.0-37.0); Macrocytosis Moderate; Mean Platelet Volume 9.2; Monocytes # (A) 0.4 k/uL (0-1.0); Monocytes % (A) 6 %; Neutrophils # (A) 5.5 k/uL (1.3-7.7); Neutrophils % (A) 82 %; Platelet Count 164 k/uL (150-450); RDW 15.8 % (11.5-15.5); WBC 6.7 k/uL (3.8-10.6)
[2020-05-26] MEDS ORDERED: Potassium Replacement Protocol 1 EACH MISC MISCELLANE PRN (08:34)
[2020-05-26] MEDS: PREGABALIN 100 MG CAP PO SCH ×2 (09:01→20:45)
[2020-05-26] MEDS: MULTIVITAMINS, THERA 1 EACH TAB PO SCH (09:01)
[2020-05-26] MEDS: METOPROLOL TARTRATE 25 MG TAB PO SCH ×3 (09:01→20:45)
[2020-05-26] MEDS: metroNIDAZOLE-NS PMX 500 MG in SALINE 1 100ML.BAG IVPB SCH (09:02)
[2020-05-26] MEDS: FLUDROCORTISONE 0.1 MG TAB PO SCH (09:03)
[2020-05-26] MEDS: FUROSEMIDE 10 MG/ML 4 ML VIAL IV SCH ×2 (09:03→20:46)
[2020-05-26] MEDS: BALSALAZIDE DISODIUM 750 MG CAPSULE PO SCH ×2 (09:03→20:46)
[2020-05-26] MEDS: FERROUS SULFATE 325 MG TAB PO SCH (09:04)
[2020-05-26] MEDS: allopurinoL 100 MG TAB PO SCH ×3 (09:04→20:45)
[2020-05-26] MEDS: ALVIMOPAN 12 MG CAPSULE PO SCH (09:36)
[2020-05-26] MEDS ORDERED: MAGNESIUM SULFATE-D5W PMX 1 GM in DEXTROSE/WATER 1 100ML.BAG IVPB ONE (09:36)
[2020-05-26] MEDS: POTASSIUM CHLORIDE ER 20 MEQ TAB.ER PO SCH ×5 (11:25→22:08)
[2020-05-26] MEDS: FLUCONAZOLE IN NACL,ISO-OSM 100 MG in SALINE 1 50ML.BAG IVPB SCH (11:25)
[2020-05-26 13:18] VITALS: BMI 33.3
[2020-05-26] MEDS: THIAMINE 100 MG TAB PO SCH (13:29)
[2020-05-26] MEDS: FOLIC ACID 1 MG TAB PO SCH (13:29)
--- NOTE | 2020-05-26 13:51 | P.PN ---
Subjective Progress Note Date: 05/26/20 CHIEF COMPLAINT: Syncope and blood in stool HISTORY OF PRESENT ILLNESS: Patient is status post lower anterior resection, mesh removal, lysis of adhesions and incisional hernia repair. She had 5 episodes of diarrhea yesterday and 1 this morning. Entereg has been discontinued. Her magnesium and potassium are being replaced. The bone is 9.1 WBC 6.7 INR is 3 potassium 3.0 magnesium 1.8. She denies any nausea or vomiting. Abdominal pain is controlled. She is tolerating a low fiber diet. She is afebrile. PHYSICAL EXAM: VITAL SIGNS: Reviewed. GENERAL: Well-developed in no acute distress. HEENT: No sclera icterus. Extraocular movements grossly intact. Moist buccal mucosa. Head is atraumatic, normocephalic. ABDOMEN: Soft. Nondistended incision site clean dry and intact NEUROLOGIC: Alert and oriented. Cranial nerves II through XII grossly intact. ASSESSMENT: 1. Postoperative day #5 status post lower anterior resection, mesh removal, lysis of adhesions and incisional hernia repair 2. Acute lower GI bleed possibly secondary to diverticular bleed or from a rectal prolapse 3. Possible acute colitis, likely ischemic also can be contributing to GI bleed 4. Colovesical fistula 5. Incisional hernia PLAN: -Continue low fiber diet -Discontinue Entereg -continue Antibiotics per ID -GI prophylaxis Pepcid and DVT prophylaxis subcu heparin -Possible discharge home tomorrow Physician Excellence Leader note has been reviewed by physician. Signing provider agrees with the documented findings, assessment, and plan of care. Objective - Vital Signs Vital signs: Vital Signs Temp 97.8 F 05/26/20 08:00 Pulse 92 05/26/20 08:00 Resp 18 05/26/20 08:00 BP 111/75 05/26/20 08:00 Pulse Ox 96 05/26/20 04:00 Intake & Output 05/25/20 05/26/20 05/26/20 18:59 06:59 18:59 Intake Total 1320 240 Output Total 2100 4050 Balance -780 -4050 240 Weight 96.5 kg 96.5 kg Intake: Oral 1320 240 Output: Urine 2100 1550 Uretheral (Peoples) 250 Stool 2500 Other: Voiding Method Indwelling Catheter Indwelling Catheter Indwelling Catheter # Bowel Movements 1 1 - Labs CBC & Chem 7: 05/26/20 06:27 05/26/20 06:27 Labs: Abnormal Lab Results - Last 24 Hours (Table) 05/25/20 05/25/20 05/25/20 Range/Units 06:14 15:02 16:13 RBC (3.80-5.40) m/uL Hgb (11.4-16.0) gm/dL Hct (34.0-46.0) % MCV (80.0-100.0) fL MCHC (31.0-37.0) g/dL RDW (11.5-15.5) % Lymphocytes # (1.0-4.8) k/uL PT (9.0-12.0) sec INR (<1.2) Potassium 3.3 L (3.5-5.1) mmol/L Carbon Dioxide (22-30) mmol/L Creatinine (0.52-1.04) mg/dL Glucose (74-99) mg/dL Calcium (8.4-10.2) mg/dL Magnesium 1.2 L (1.6-2.3) mg/dL Ur Leukocyte Esterase Trace H (Negative) Urine Mucus Rare H (None) /hpf 05/26/20 05/26/20 05/26/20 Range/Units 06:27 06:27 06:27 RBC 3.00 L (3.80-5.40) m/uL Hgb 9.1 L (11.4-16.0) gm/dL Hct 31.2 L (34.0-46.0) % MCV 104.0 H (80.0-100.0) fL MCHC 29.3 L (31.0-37.0) g/dL RDW 15.8 H (11.5-15.5) % Lymphocytes # 0.6 L (1.0-4.8) k/uL PT 28.8 H (9.0-12.0) sec INR 3.0 H (<1.2) Potassium 3.0 L (3.5-5.1) mmol/L Carbon Dioxide 31 H (22-30) mmol/L Creatinine 1.34 H (0.52-1.04) mg/dL Glucose 143 H (74-99) mg/dL Calcium 7.2 L (8.4-10.2) mg/dL Magnesium (1.6-2.3) mg/dL Ur Leukocyte Esterase (Negative) Urine Mucus (None) /hpf
--- NOTE | 2020-05-26 14:07 | P.PN ---
Subjective Progress Note Date: 05/26/20 Principal diagnosis: This is a 74-year-old female who was recently admitted with acute gastrointestinal bleed also was found to have sigmoid colitis and ischemic colitis and is being closely monitored. Patient underwent subtotal colectomy and surgery following closely. Patient was having some confusion status post surgery and mentation has improved and patient is currently alert and oriented 3. Patient tolerating diet with no reports of nausea or vomiting noted. Coumadin remains on hold and INR is 3.0. Will repeat a.m. labs. Patient is to continue with electrolyte replacement protocol as potassium was 3.0 today and magnesium is 1.8. Creatinine slowly trending down and is 1.34 with a sodium of 137. Discussed with the patient about discharge planning needs as PT/OT recommending subacute rehab and although patient was initially reluctant patient is now agreeable to ECF placement once stabilized and discharged. Family was at the bedside and agrees with this treatment plan. Social work following. Review of systems: Constitutional: No reports of fatigue, fever, or chills Cardiovascular: No reports of chest pain or palpitations Respiratory: No reports of shortness of breath or cough GI: No reports of nausea, vomiting, or diarrhea : No reports of dysuria or retention Neurovascular: No reports of weakness or numbness Active Medications Acetaminophen (Tylenol Tab) 500 mg PO DAILY PRN PRN Reason: Mild Pain Last Admin: 05/25/20 20:52 Dose: 500 mg Documented by: Acetaminophen/Codeine Phosphate (Tylenol #3) 1 each PO Q4H PRN PRN Reason: Moderate Pain Last Admin: 05/22/20 09:18 Dose: 1 each Documented by: Allopurinol (Zyloprim) 100 mg PO TID [facility] Last Admin: 05/26/20 09:04 Dose: 100 mg Documented by: Balsalazide (Colazal) 2,250 mg PO BID [facility] Last Admin: 05/26/20 09:03 Dose: 2,250 mg Documented by: Ferrous Sulfate (Feosol) 325 mg PO DAILY [facility] Last Admin: 05/26/20 09:04 Dose: 325 mg Documented by: Fludrocortisone Acetate (Florinef) 0.1 mg PO BID [facility] Last Admin: 05/26/20 09:03 Dose: 0.1 mg Documented by: Fluticasone Propionate (Flonase Nasal [place]) 2 spray EA NOSTRIL DAILY PRN PRN Reason: Allergy Symptoms Folic Acid (Folic Acid) 1 mg PO DAILY@1200 [facility] Last Admin: 05/26/20 13:29 Dose: 1 mg Documented by: Furosemide (Lasix) 40 mg IV DAILY [facility] Last Admin: 05/26/20 09:03 Dose: 40 mg Documented by: Hydrocortisone (Cortef) 10 mg PO BID-W/MEALS [facility] Last Admin: 05/26/20 06:20 Dose: 10 mg Documented by: Fluconazole/Sodium Chloride (100 mg/ IV Solution) 50 mls @ 50 mls/hr IVPB DAILY [facility] Last Admin: 05/26/20 11:25 Dose: 50 mls/hr Documented by: Ceftriaxone Sodium 2 gm/ (Sodium Chloride) 50 mls @ 100 mls/hr IVPB Q24HR [facility] Last Admin: 05/26/20 09:01 Dose: 100 mls/hr Documented by: Metronidazole 500 mg/ IV (Solution) 100 mls @ 100 mls/hr IVPB Q8HR [facility] Last Admin: 05/26/20 09:02 Dose: 100 mls/hr Documented by: Levothyroxine Sodium (Synthroid) 88 mcg PO DAILY@0600 [facility] Last Admin: 05/26/20 06:20 Dose: 88 mcg Documented by: Metoclopramide HCl (Reglan) 10 mg IVP Q6HR PRN PRN Reason: Nausea and Vomiting Last Admin: 05/22/20 09:19 Dose: 10 mg Documented by: Metoprolol Tartrate (Lopressor) 25 mg PO TID [facility] Last Admin: 05/26/20 09:01 Dose: 25 mg Documented by: Miscellaneous Information (Magnesium Per Protocol) 1 each MISCELLANE DAILY PRN; Protocol PRN Reason: Per Protocol Miscellaneous Information (Potassium Per Protocol) 1 each MISCELLANE DAILY PRN; Protocol PRN Reason: Per Protocol Morphine Sulfate (Morphine Sulfate (Inj)) 4 mg IVP Q4HR PRN PRN Reason: Pain Multivitamins (Theragran) 1 each PO DAILY [facility] Last Admin: 05/26/20 09:01 Dose: 1 each Documented by: Ondansetron HCl (Zofran) 4 mg IVP Q8HR PRN PRN Reason: Nausea And Vomiting Pantoprazole Sodium (Protonix) 40 mg PO AC-BRKFST [facility] Last Admin: 05/26/20 06:20 Dose: 40 mg Documented by: Pregabalin (Lyrica) 200 mg PO BID [facility] Last Admin: 05/26/20 09:01 Dose: 200 mg Documented by: Thiamine HCl (Vitamin B-1) 100 mg PO DAILY@1200 [facility] Last Admin: 05/26/20 13:29 Dose: 100 mg Documented by: Tramadol HCl (Ultram) 50 mg PO QID PRN PRN Reason: Pain/Discomfort Last Admin: 05/23/20 09:57 Dose: 50 mg Documented by: Objective - Vital Signs Vital signs: Vital Signs Temp 97.8 F 05/26/20 08:00 Pulse 92 05/26/20 08:00 Resp 18 05/26/20 08:00 BP 111/75 05/26/20 08:00 Pulse Ox 96 05/26/20 04:00 Intake & Output 05/25/20 05/26/20 05/26/20 18:59 06:59 18:59 Intake Total 1320 240 Output Total 2100 4050 Balance -780 -4050 240 Weight 96.5 kg 96.5 kg Intake: Oral 1320 240 Output: Urine 2100 1550 Uretheral (Peoples) 250 Stool 2500 Other: Voiding Method Indwelling Catheter Indwelling Catheter Indwelling Catheter # Bowel Movements 1 1 - Exam Gen: This is a 74-year-old female currently sitting up in the chair, awake, alert and oriented 3, well-developed, well-nourished, obese. Temp is 97.8F, pulse is 92, respirations are 18, blood pressure is 111/75, oxygen saturation is 94% on room air. HEENT: Head is atraumatic, normocephalic. Pupils equal, round. Sclerae is anicteric. NECK: Supple. No JVD. No lymphadenopathy. No thyromegaly. LUNGS: Clear to auscultation. No wheezes or rhonchi. No intercostal retractions. HEART: Regular rate and rhythm. No murmur. ABDOMEN: Soft. Bowel sounds are present. No masses. No tenderness. EXTREMITIES: No pedal edema. No calf tenderness. NEUROLOGICAL: Patient is awake, alert and oriented x3. Cranial nerves 2 through 12 are grossly intact. - Labs CBC & Chem 7: 05/26/20 06:27 05/26/20 06:27 Labs: Abnormal Lab Results - Last 24 Hours (Table) 05/25/20 05/25/20 05/25/20 Range/Units 06:14 15:02 16:13 RBC (3.80-5.40) m/uL Hgb (11.4-16.0) gm/dL Hct (34.0-46.0) % MCV (80.0-100.0) fL MCHC (31.0-37.0) g/dL RDW (11.5-15.5) % Lymphocytes # (1.0-4.8) k/uL PT (9.0-12.0) sec INR (<1.2) Potassium 3.3 L (3.5-5.1) mmol/L Carbon Dioxide (22-30) mmol/L Creatinine (0.52-1.04) mg/dL Glucose (74-99) mg/dL Calcium (8.4-10.2) mg/dL Magnesium 1.2 L (1.6-2.3) mg/dL Ur Leukocyte Esterase Trace H (Negative) Urine Mucus Rare H (None) /hpf 05/26/20 05/26/20 05/26/20 Range/Units 06:27 06:27 06:27 RBC 3.00 L (3.80-5.40) m/uL Hgb 9.1 L (11.4-16.0) gm/dL Hct 31.2 L (34.0-46.0) % MCV 104.0 H (80.0-100.0) fL MCHC 29.3 L (31.0-37.0) g/dL RDW 15.8 H (11.5-15.5) % Lymphocytes # 0.6 L (1.0-4.8) k/uL PT 28.8 H (9.0-12.0) sec INR 3.0 H (<1.2) Potassium 3.0 L (3.5-5.1) mmol/L Carbon Dioxide 31 H (22-30) mmol/L Creatinine 1.34 H (0.52-1.04) mg/dL Glucose 143 H (74-99) mg/dL Calcium 7.2 L (8.4-10.2) mg/dL Magnesium (1.6-2.3) mg/dL Ur Leukocyte Esterase (Negative) Urine Mucus (None) /hpf Assessment and Plan Assessment: Acute gastrointestinal bleed with possibly sigmoid diverticulosis, status post sigmoid colectomy Change in mental status, acute delirium postoperatively as expected, improving Acute renal failure. Azotemia, prerenal with acute tubular necrosis Leukocytosis Urinary tract infection with enterococcus and Megan History of syncope with intravascular volume depletion Hypokalemia Acute renal failure, present on admission Hypertension Hypothyroidism History of peripheral neuropathy history of chronic kidney disease stage III Severe hypokalemia Anemia, macrocytic Mild thrombocytopenia mild Coumadin coagulopathy hypomagnesemia Full code Recommendations and discussion: Recommend to continue current medications, management, symptomatic treatment. Multiple medical consultations following. Patient was seen and evaluated by PT/OT recommending subacute rehab upon discharge. Discussed with family and patient at the bedside and patient although reluctant to go to rehab is now agreeable and will be working with social work on determining ECF placement. Will continue to monitor closely. Will repeat a.m. labs. Coumadin continues to be on hold. Due to multiple complex medical issues, prognosis is guarded. Further recommendations to follow.
[2020-05-26] MEDS: metroNIDAZOLE 500 MG TAB PO SCH (16:09)
--- NOTE | 2020-05-26 17:17 | PN ---
PROGRESS NOTE Patient is seen for followup for acute kidney injury on top of chronic kidney disease. She is currently being diuresed. The patient is maintained on IV Lasix daily. However, her swelling has not improved much. Weight is about the same as yesterday. PHYSICAL EXAMINATION: Blood pressure is 111/75, heart rate 92 per minute, patient is afebrile. Examination of the heart S1, S2. Examination of the lungs, bilateral breath sounds are heard. Decreased breath sounds at bases. Abdomen is soft, nontender. Examination of lower extremities shows edema 2+ bilaterally. SENIOR LABEL SPECIALIST exam grossly intact. LABS: Show sodium of 137, potassium 3.0, chloride 103, CO2 is 31, BUN 11, serum creatinine 1.34, hemoglobin 9.1 g/dL. ASSESSMENT: 1. Acute kidney injury, ATN currently improving. 2. Hypokalemia secondary to decreased oral intake and diuresis. Will replace more aggressively. Magnesium was 1.8. 3. Volume overload and lower extremity edema. Increase Lasix to q.12 hours. 4. Chronic hypotension associated with adrenal insufficiency maintained on Cortef. 5. VRE and Megan urinary tract infection, maintained on antibiotics and antifungals treatment. PLAN: Increase Lasix to IV q.12 hours. Replace potassium. Repeat labs in a.m. and hold off on the Florinef given the significant edema. MMODL / IJN: [id number] /
[2020-05-26 19:29] LABS: Potassium 2.7 mmol/L (3.5-5.1)
--- NOTE | 2020-05-26 22:16 | PN ---
PROGRESS NOTE DATE OF SERVICE: 05/26/2020 REASON FOR FOLLOWUP: Colovesical fistula and colitis. INTERVAL HISTORY: The patient is currently afebrile. The patient is breathing comfortably. She has been complaining of some lower abdominal pain and loose stool. No chest pain, shortness of breath or cough. PHYSICAL EXAMINATION: Blood pressure 108/69 with a pulse of 92, temperature 97.8. She is 98% on room air. General description is an elderly female up in the chair in no distress. RESPIRATORY SYSTEM: Unlabored breathing with decreased breath sounds at the base. No wheeze. HEART: S1, S2. Regular rate and rhythm. ABDOMEN: Soft. No tenderness. LABS: Hemoglobin is 9.1, white count 6.7, BUN of 11, creatinine 1.34. DIAGNOSTIC IMPRESSION AND PLAN: 1. Patient with a colovesical fistula, status post low anterior resection. The patient is now complaining of some diarrhea. Currently covered with Rocephin and Flagyl; to continue. Advised to increase her probiotic and yogurt intake. 2. Urinary tract infection. Initial urine with VRE, for which the patient completed a 7-day course of daptomycin. Repeat shows yeast and is on oral Diflucan; to continue. Continue with supportive care. MMODL / IJN: [id number] /
[2020-05-27 00:42] LABS: Calcium 7.2 mg/dL (8.4-10.2)
[2020-05-27 00:56] LABS: Potassium 2.7 mmol/L (3.5-5.1)
[2020-05-27] MEDS: metroNIDAZOLE 500 MG TAB PO SCH ×4 (01:20→23:38)
[2020-05-27] MEDS: POTASSIUM CHLORIDE ER 20 MEQ TAB.ER PO SCH ×3 (01:20→22:09)
[2020-05-27] MEDS: POTASSIUM CHLORIDE 10 MEQ in WATER FOR INJECTION 1 100ML.BAG IVPB SCH ×6 (01:47→08:56)
[2020-05-27] MEDS: PANTOPRAZOLE 40 MG TABLET PO SCH (06:09)
[2020-05-27] MEDS: LEVOTHYROXINE 88 MCG TAB PO SCH (06:09)
[2020-05-27] MEDS: HYDROCORTISONE 10 MG TAB PO SCH ×2 (06:09→17:36)
[2020-05-27] MEDS: ACETAMINOPHEN TAB 500 MG TAB PO PRN (06:41)
[2020-05-27 07:13] LABS: Anisocytosis Slight; Basophils % (A) 0 %; Eosinophils # (A) 0.1 k/uL (0-0.7); Eosinophils % (A) 1 %; HCT 32.7 % (34.0-46.0); HGB 9.9 gm/dL (11.4-16.0); Hypochromasia Marked; Lymphocytes # (A) 1.9 k/uL (1.0-4.8); Lymphocytes % (A) 21 %; MCH 31.2 pg (25.0-35.0); MCHC 30.2 g/dL (31.0-37.0); MCV 103.3 fL (80.0-100.0); Macrocytosis Moderate; Mean Platelet Volume 9.2; Monocytes # (A) 0.5 k/uL (0-1.0); Monocytes % (A) 6 %; Neutrophils # (A) 6.3 k/uL (1.3-7.7); Neutrophils % (A) 71 %; Platelet Count 182 k/uL (150-450); RBC 3.16 m/uL (3.80-5.40); WBC 8.9 k/uL (3.8-10.6)
[2020-05-27 07:23] LABS: Calcium 7.5 mg/dL (8.4-10.2); Magnesium 1.8 mg/dL (1.6-2.3); Potassium 3.8 mmol/L (3.5-5.1)
[2020-05-27] MEDS ORDERED: MAGNESIUM SULFATE-D5W PMX 1 GM in DEXTROSE/WATER 1 100ML.BAG IVPB ONE (07:59)
[2020-05-27] MEDS: BALSALAZIDE DISODIUM 750 MG CAPSULE PO SCH ×2 (08:03→22:09)
[2020-05-27] MEDS: FUROSEMIDE 10 MG/ML 4 ML VIAL IV SCH ×2 (08:04→22:08)
[2020-05-27] MEDS: FERROUS SULFATE 325 MG TAB PO SCH (08:04)
[2020-05-27] MEDS: METOPROLOL TARTRATE 25 MG TAB PO SCH ×3 (08:04→22:08)
[2020-05-27] MEDS: PREGABALIN 100 MG CAP PO SCH ×2 (08:04→22:08)
[2020-05-27] MEDS: FLUCONAZOLE 100 MG TAB PO SCH (08:04)
[2020-05-27] MEDS: MULTIVITAMINS, THERA 1 EACH TAB PO SCH (08:04)
[2020-05-27] MEDS: allopurinoL 100 MG TAB PO SCH ×3 (08:04→22:08)
--- NOTE | 2020-05-27 10:47 | P.PN ---
Subjective Progress Note Date: 05/27/20 CHIEF COMPLAINT: Syncope and blood in stool HISTORY OF PRESENT ILLNESS: Patient is status post lower anterior resection, mesh removal, lysis of adhesions and incisional hernia repair. Diarrhea has now resolved. Patient denies any nausea or vomiting. She is requiring Tylenol for abdominal pain. She is awaiting her Wendell attests that she can go to [facility] possibly today. She's tolerating a low fiber diet. She's afebrile. WBC is 8.9 hemoglobin 9.9 potassium 3.8 magnesium 1.8 PHYSICAL EXAM: VITAL SIGNS: Reviewed. GENERAL: Well-developed in no acute distress. HEENT: No sclera icterus. Extraocular movements grossly intact. Moist buccal mucosa. Head is atraumatic, normocephalic. ABDOMEN: Soft. Nondistended incision dressing clean dry and intact NEUROLOGIC: Alert and oriented. Cranial nerves II through XII grossly intact. ASSESSMENT: 1. Postoperative day #6 status post lower anterior resection, mesh removal, lysis of adhesions and incisional hernia repair 2. Acute lower GI bleed possibly secondary to diverticular bleed or from a rectal prolapse 3. Possible acute colitis, likely ischemic also can be contributing to GI bleed 4. Colovesical fistula 5. Incisional hernia 6. Hypomagnesemia PLAN: -Continue low fiber diet -continue Antibiotics per ID -GI prophylaxis Pepcid and DVT prophylaxis subcu heparin -Possible discharge to [facility] today -Patient is surgically stable for discharge Physician Ranch Cook note has been reviewed by physician. Signing provider agrees with the documented findings, assessment, and plan of care. Objective - Vital Signs Vital signs: Vital Signs Temp 97.9 F 05/27/20 06:16 Pulse 79 05/27/20 06:16 Resp 16 05/27/20 06:16 BP 123/74 05/27/20 06:16 Pulse Ox 97 05/27/20 06:16 Intake & Output 05/26/20 05/27/20 05/27/20 18:59 06:59 18:59 Intake Total 598 500 Output Total 2475 1000 Balance -1877 -1000 500 Weight 96.5 kg Intake: Oral 598 500 Output: Urine 2475 1000 Other: Voiding Method Indwelling Catheter Indwelling Catheter Indwelling Catheter # Bowel Movements 1 - Labs CBC & Chem 7: 05/27/20 06:44 05/27/20 06:44 Labs: Abnormal Lab Results - Last 24 Hours (Table) 05/26/20 05/27/20 05/27/20 Range/Units 18:47 00:17 06:44 RBC 3.16 L (3.80-5.40) m/uL Hgb 9.9 L (11.4-16.0) gm/dL Hct 32.7 L (34.0-46.0) % MCV 103.3 H (80.0-100.0) fL MCHC 30.2 L (31.0-37.0) g/dL RDW 16.0 H (11.5-15.5) % Sodium 135 L 136 L (137-145) mmol/L Potassium 2.7 L* 2.7 L* (3.5-5.1) mmol/L Carbon Dioxide 34 H (22-30) mmol/L Creatinine 1.41 H (0.52-1.04) mg/dL Glucose 182 H (74-99) mg/dL Calcium 7.2 L (8.4-10.2) mg/dL 05/27/20 Range/Units 06:44 RBC (3.80-5.40) m/uL Hgb (11.4-16.0) gm/dL Hct (34.0-46.0) % MCV (80.0-100.0) fL MCHC (31.0-37.0) g/dL RDW (11.5-15.5) % Sodium (137-145) mmol/L Potassium (3.5-5.1) mmol/L Carbon Dioxide 32 H (22-30) mmol/L Creatinine 1.37 H (0.52-1.04) mg/dL Glucose 129 H (74-99) mg/dL Calcium 7.5 L (8.4-10.2) mg/dL
[2020-05-27] MEDS: FOLIC ACID 1 MG TAB PO SCH (11:38)
[2020-05-27] MEDS: THIAMINE 100 MG TAB PO SCH (11:38)
--- NOTE | 2020-05-27 12:50 | P.PN ---
Subjective Patient is seen in follow-up for acute kidney injury on chronic kidney disease. Renal function stable. Edema improving. Has a Peoples catheter. Nonoliguric. Oral intake good. Vital signs are stable. General: The patient appeared well nourished and normally developed. HEENT: Head exam is unremarkable. Neck is without jugular venous distension. LUNGS: Breath sounds decreased. HEART: Rate and Rhythm are regular. ABDOMEN: Soft, generalized tenderness. EXTREMITITES: 2+ edema. Objective - Vital Signs Vital signs: Vital Signs Temp 97.3 F L 05/27/20 11:23 Pulse 98 05/27/20 11:23 Resp 18 05/27/20 11:23 BP 100/68 05/27/20 11:23 Pulse Ox 97 05/27/20 11:23 Intake & Output 05/26/20 05/27/20 05/27/20 18:59 06:59 18:59 Intake Total 598 800 Output Total 2475 1000 1500 Balance -1877 -1000 -700 Weight 96.5 kg Intake: Intake, IV Titration 300 Amount Magnesium Sulfate-D5w Pmx 100 1 gm In Dextrose/Water 1 100ml.bag @ 100 mls/hr IVPB ONCE ONE Rx#: [id number] Potassium Chloride 10 meq 100 In Water For Injection 1 100ml.bag @ 100 mls/hr IVPB Q1HR [facility] Rx#: [id number] cefTRIAXone 2 gm In 100 Sodium Chloride 0.9% 50 ml @ 100 mls/hr IVPB Q24HR [facility] Rx#:[id number] Oral 598 500 Output: Urine 2475 1000 1500 Uretheral (Peoples) 1500 Other: Voiding Method Indwelling Catheter Indwelling Catheter Indwelling Catheter # Bowel Movements 1 - Labs CBC & Chem 7: 05/27/20 06:44 05/27/20 06:44 Labs: Abnormal Lab Results - Last 24 Hours (Table) 05/26/20 05/27/20 05/27/20 Range/Units 18:47 00:17 06:44 RBC 3.16 L (3.80-5.40) m/uL Hgb 9.9 L (11.4-16.0) gm/dL Hct 32.7 L (34.0-46.0) % MCV 103.3 H (80.0-100.0) fL MCHC 30.2 L (31.0-37.0) g/dL RDW 16.0 H (11.5-15.5) % Sodium 135 L 136 L (137-145) mmol/L Potassium 2.7 L* 2.7 L* (3.5-5.1) mmol/L Carbon Dioxide 34 H (22-30) mmol/L Creatinine 1.41 H (0.52-1.04) mg/dL Glucose 182 H (74-99) mg/dL Calcium 7.2 L (8.4-10.2) mg/dL 05/27/20 Range/Units 06:44 RBC (3.80-5.40) m/uL Hgb (11.4-16.0) gm/dL Hct (34.0-46.0) % MCV (80.0-100.0) fL MCHC (31.0-37.0) g/dL RDW (11.5-15.5) % Sodium (137-145) mmol/L Potassium (3.5-5.1) mmol/L Carbon Dioxide 32 H (22-30) mmol/L Creatinine 1.37 H (0.52-1.04) mg/dL Glucose 129 H (74-99) mg/dL Calcium 7.5 L (8.4-10.2) mg/dL Assessment and Plan Plan: Assessment: 1. Acute kidney injury secondary to ATN secondary to hypotension and cardiorenal syndrome. Creatinine 1.37 today. No hydronephrosis noted on CAT scan. UA benign. 2. Fluid overload. Improving with diuresis. 3. Acute on chronic diastolic CHF with mild to moderate tricuspid regurgitation and pulmonary hypertension. 4. Acute GI bleed status post lower anterior resection and mesh removal on May 21. 5. VRE and jay UTI maintained on antibiotics. 6. Chronic kidney disease stage III with baseline creatinine in the range of 1.3-1.6 secondary to nephrosclerosis. 7. Chronic hypotension secondary to adrenal insufficiency maintained on Cortef. 8. Hypokalemia secondary to diuresis. Better posterior placement. Plan: Maintain IV Lasix 40 mg twice daily. Maintain potassium supplementation. Avoid nephrotoxins. Continue to monitor renal function and urine output.
--- NOTE | 2020-05-27 15:09 | P.PN ---
Subjective Progress Note Date: 05/27/20 Principal diagnosis: This is a 74-year-old female who was recently admitted with acute gastrointestinal bleed also was found to have sigmoid colitis and ischemic colitis and is being closely monitored. Patient underwent subtotal colectomy and surgery following closely. Patient was having some confusion status post surgery and mentation has improved and patient is currently alert and oriented 3. Patient tolerating diet with no reports of nausea or vomiting noted. Coumadin remains on hold and INR is 3.0. Will repeat a.m. labs. Patient is to continue with electrolyte replacement protocol as potassium was 3.0 today and magnesium is 1.8. Creatinine slowly trending down and is 1.34 with a sodium of 137. Discussed with the patient about discharge planning needs as PT/OT recommending subacute rehab and although patient was initially reluctant patient is now agreeable to ECF placement once stabilized and discharged. Family was at the bedside and agrees with this treatment plan. Social work following. Review of systems: Constitutional: No reports of fatigue, fever, or chills Cardiovascular: No reports of chest pain or palpitations Respiratory: No reports of shortness of breath or cough GI: No reports of nausea, vomiting, or diarrhea : No reports of dysuria or retention Neurovascular: No reports of weakness or numbness 05/27/2020 Patient is seen and evaluated and follow-up continues to have some abdominal discomfort and was noted to have a couple bouts of diarrhea since Tuesday. Patient had one episode of loose stool today. Patient is currently maintained on low fiber diet and will continue at this time. Discussed with nursing staff and will attempt to obtain a specimen to evaluate for C. diff along with stool culture. Multiple medical consultations following. Patient is currently maintained on IV Lasix at 40 mg twice daily and will continue at this time. Patient is also maintained on Cortef. Patient currently receiving IV antibiotics in the form of ceftriaxone and oral Flagyl and will continue at this time. She is also maintained on Diflucan as urine culture finalized showing Megan albicans. Hemoglobin is stable at 9.9, sodium is slightly improved at 139, potassium is 3.7 today, creatinine slowly trending down and at 1.37. Covid 19 testing was negative. Case management and social work following as patient will be going to [facility] once stabilized and discharged. Objective - Vital Signs Vital signs: Vital Signs Temp 97.3 F L 05/27/20 11:23 Pulse 98 05/27/20 11:23 Resp 18 05/27/20 11:23 BP 100/68 05/27/20 11:23 Pulse Ox 97 05/27/20 11:23 Intake & Output 05/26/20 05/27/20 05/27/20 18:59 06:59 18:59 Intake Total 598 800 Output Total 2475 1000 1500 Balance -1877 -1000 -700 Weight 96.5 kg Intake: Intake, IV Titration 300 Amount Magnesium Sulfate-D5w Pmx 100 1 gm In Dextrose/Water 1 100ml.bag @ 100 mls/hr IVPB ONCE ONE Rx#: [id number] Potassium Chloride 10 meq 100 In Water For Injection 1 100ml.bag @ 100 mls/hr IVPB Q1HR [facility] Rx#: [id number] cefTRIAXone 2 gm In 100 Sodium Chloride 0.9% 50 ml @ 100 mls/hr IVPB Q24HR [facility] Rx#:[id number] Oral 598 500 Output: Urine 2475 1000 1500 Uretheral (Peoples) 1500 Other: Voiding Method Indwelling Catheter Indwelling Catheter Indwelling Catheter # Bowel Movements 1 - Exam Gen: This is a 74-year-old female currently sitting up in the chair, awake, alert and oriented 3, well-developed, well-nourished, obese. Temp is 97.9F, pulse is 79, respirations are 16, blood pressure is 123/74, oxygen saturation is 97% on room air. HEENT: Head is atraumatic, normocephalic. Pupils equal, round. Sclerae is anicteric. NECK: Supple. No JVD. No lymphadenopathy. No thyromegaly. LUNGS: Clear to auscultation. No wheezes or rhonchi. No intercostal retractions. HEART: Regular rate and rhythm. No murmur. ABDOMEN: Soft. Bowel sounds are present. No masses. No tenderness. EXTREMITIES: No pedal edema. No calf tenderness. Bilateral lower extremity swelling slightly improved NEUROLOGICAL: Patient is awake, alert and oriented x3. Cranial nerves 2 through 12 are grossly intact. - Labs CBC & Chem 7: 05/27/20 06:44 05/27/20 14:15 Labs: Abnormal Lab Results - Last 24 Hours (Table) 05/26/20 05/27/20 05/27/20 Range/Units 18:47 00:17 06:44 RBC 3.16 L (3.80-5.40) m/uL Hgb 9.9 L (11.4-16.0) gm/dL Hct 32.7 L (34.0-46.0) % MCV 103.3 H (80.0-100.0) fL MCHC 30.2 L (31.0-37.0) g/dL RDW 16.0 H (11.5-15.5) % Sodium 135 L 136 L (137-145) mmol/L Potassium 2.7 L* 2.7 L* (3.5-5.1) mmol/L Carbon Dioxide 34 H (22-30) mmol/L Creatinine 1.41 H (0.52-1.04) mg/dL Glucose 182 H (74-99) mg/dL Calcium 7.2 L (8.4-10.2) mg/dL 05/27/20 Range/Units 06:44 RBC (3.80-5.40) m/uL Hgb (11.4-16.0) gm/dL Hct (34.0-46.0) % MCV (80.0-100.0) fL MCHC (31.0-37.0) g/dL RDW (11.5-15.5) % Sodium (137-145) mmol/L Potassium (3.5-5.1) mmol/L Carbon Dioxide 32 H (22-30) mmol/L Creatinine 1.37 H (0.52-1.04) mg/dL Glucose 129 H (74-99) mg/dL Calcium 7.5 L (8.4-10.2) mg/dL Assessment and Plan Assessment: Acute gastrointestinal bleed with possibly sigmoid diverticulosis, status post sigmoid colectomy Change in mental status, acute delirium postoperatively as expected, improving Covid 19 ruled out, testing was negative Acute renal failure. Azotemia, prerenal with acute tubular necrosis Leukocytosis Urinary tract infection with enterococcus and Megan History of syncope with intravascular volume depletion Hypokalemia Acute renal failure, present on admission Hypertension Hypothyroidism History of peripheral neuropathy history of chronic kidney disease stage III Severe hypokalemia Anemia, macrocytic Mild thrombocytopenia mild Coumadin coagulopathy hypomagnesemia Full code Recommendations and discussion: Recommend to continue current medications, management, symptomatic treatment. Multiple medical consultations following. Case management and social work following and making arrangements for ECF placement at [facility] once stabilized and discharged. Will continue to monitor closely. Will repeat a.m. labs. Coumadin continues to be on hold. Due to multiple complex medical issues, prognosis is guarded. Further recommendations to follow. Possible discharge in 24-48 hours.
--- NOTE | 2020-05-27 17:31 | PN ---
PROGRESS NOTE DATE OF SERVICE: 05/27/2020 REASON FOR FOLLOWUP: Colovesical fistula, UTI. INTERVAL HISTORY: The patient is currently afebrile. The patient is breathing comfortably. The patient denies having any chest pain or cough. Abdominal pain is currently controlled. No nausea, vomiting, and diarrhea has slowed down. PHYSICAL EXAMINATION: Blood pressure 109/76, pulse of 87, temperature 98.2. She is 98% on room air. General description is an elderly female up in the chair in no distress. RESPIRATORY SYSTEM: Unlabored breathing. Clear to auscultation anteriorly. HEART: S1, S2. Regular rate and rhythm. ABDOMEN: Soft. No tenderness. LABS: Hemoglobin 9.8, white count 8.9, BUN of 10, creatinine 1.37. DIAGNOSTIC IMPRESSION AND PLAN: 1. Patient with colovesical fistula, status post low anterior resection patient currently on Rocephin and Flagyl. White count has normalized. 2. Patient with a urinary tract infection and Megan albicans. The patient is currently covered with Diflucan; to continue. MMODL / IJN: [id number] /
[2020-05-28] MEDS: PANTOPRAZOLE 40 MG TABLET PO SCH (06:38)
[2020-05-28] MEDS: HYDROCORTISONE 10 MG TAB PO SCH (06:38)
[2020-05-28] MEDS: LEVOTHYROXINE 88 MCG TAB PO SCH (06:39)
[2020-05-28 07:25] LABS: INR 1.5 (<1.2); Prothrombin Time 14.6 sec (9.0-12.0)
[2020-05-28 07:36] LABS: Calcium 7.7 mg/dL (8.4-10.2); Magnesium 1.7 mg/dL (1.6-2.3); Potassium 3.8 mmol/L (3.5-5.1)
[2020-05-28] MEDS: BALSALAZIDE DISODIUM 750 MG CAPSULE PO SCH (09:06)
[2020-05-28] MEDS: PREGABALIN 100 MG CAP PO SCH (09:07)
[2020-05-28] MEDS: metroNIDAZOLE 500 MG TAB PO SCH (09:07)
[2020-05-28] MEDS: allopurinoL 100 MG TAB PO SCH (09:07)
[2020-05-28] MEDS: FLUCONAZOLE 100 MG TAB PO SCH (09:07)
[2020-05-28] MEDS: METOPROLOL TARTRATE 25 MG TAB PO SCH (09:07)
[2020-05-28] MEDS: POTASSIUM CHLORIDE ER 20 MEQ TAB.ER PO SCH (09:07)
[2020-05-28] MEDS: MULTIVITAMINS, THERA 1 EACH TAB PO SCH (09:08)
[2020-05-28] MEDS: FUROSEMIDE 10 MG/ML 4 ML VIAL IV SCH (09:08)
[2020-05-28] MEDS: FERROUS SULFATE 325 MG TAB PO SCH (09:08)
[2020-05-28 11:37] VITALS: BP 102/55; PULSE 107; RESP 16; TEMP 98.2
[2020-05-28] MEDS: THIAMINE 100 MG TAB PO SCH (11:38)
[2020-05-28] MEDS: FOLIC ACID 1 MG TAB PO SCH (11:38)
--- NOTE | 2020-05-28 12:47 | PN ---
PROGRESS NOTE DATE OF SERVICE: 05/28/2020 REASON FOR FOLLOWUP VISIT: Colovesical fistula and UTI. The patient is currently afebrile. The patient is feeling better. Breathing comfortably. No chest pain, shortness of breath or cough. Has been tolerating her diet. Complaining of some diarrhea but no worsening. PHYSICAL EXAMINATION: Blood pressure 102/55 with a pulse of 107, temperature 98.2, she is 96% on room air. General description is an elderly female, up in the bed, in no distress. RESPIRATORY SYSTEM: Unlabored breathing, decreased breath sounds in the base, with no wheeze. HEART: S1, S2. Regular rate and rhythm. ABDOMEN: Soft, no tenderness. LABS: White count normal 8.9 as of yesterday. DIAGNOSTIC IMPRESSION AND PLAN: 1. Patient with colovesical fistula, status post wound infection on Rocephin and Flagyl to continue for 1 week. 2. UTI initially with the VRE adequately treated, repeat urine with Megan albicans, and any more than 7 days of Ceftin should be discontinued. MMODL / IJN: [id number] /
[2020-05-28] MEDS: MAGNESIUM SULFATE-D5W PMX 1 GM in DEXTROSE/WATER 1 100ML.BAG IVPB SCH ×2 (13:00→14:07)
--- NOTE | 2020-05-28 13:09 | P.DS ---
Providers Date of admission: 05/12/20 14:32 Expected date of discharge: 05/28/20 Attending physician: Sury Collins Consults: 05/11/20 15:30 Consult Physician Urgent Consulting Provider: Michelle Flores Consult Reason/Comments: syncope Do you want consulting provider notified?: Yes 05/11/20 18:21 Consult Physician Routine Consulting Provider: Edd Lowery Consult Reason/Comments: known to you- having bowel resection next week. Do you want consulting provider notified?: Yes 05/12/20 12:23 Consult Physician Stat Consulting Provider: Karine Isaac Consult Reason/Comments: GI bleed Do you want consulting provider notified?: Yes 05/13/20 17:44 Consult Physician Routine Consulting Provider: Khushi Sen Consult Reason/Comments: VRE urine Do you want consulting provider notified?: Yes 05/14/20 14:34 Consult Physician Routine Consulting Provider: Herb Jack Consult Reason/Comments: post op follow up Do you want consulting provider notified?: Yes, Notify in am 05/15/20 13:01 Consult Physician Stat Consulting Provider: Radha Dawson Consult Reason/Comments: Rule out TIA Do you want consulting provider notified?: Yes 05/23/20 09:26 Consult Physician Routine Consulting Provider: Darío Michaels Consult Reason/Comments: REGINALD Do you want consulting provider notified?: Yes Primary care physician: Johnny To Hospital Course: Final diagnosis Acute gastrointestinal bleed with possibly sigmoid diverticulosis, status post sigmoid colectomy Change in mental status, acute delirium postoperatively as expected, improving Covid 19 ruled out, testing was negative Acute renal failure. Azotemia, prerenal with acute tubular necrosis Leukocytosis Urinary tract infection with enterococcus and Megan History of syncope with intravascular volume depletion Hypokalemia Acute renal failure, present on admission Hypertension Hypothyroidism History of peripheral neuropathy history of chronic kidney disease stage III Severe hypokalemia Anemia, macrocytic Mild thrombocytopenia mild Coumadin coagulopathy hypomagnesemia Full code Discharge disposition Patient is being discharged in a stable condition with guarded prognosis to [facility] for continued PT/OT therapy. Patient will follow-up with Dr. To in the outpatient setting upon discharge. Patient also is to follow-up with Dr. Jack on June 03 at 8 AM for Caba catheter removal and follow-up. Patient also follow-up with surgery in the outpatient setting in 1 week. Patient will continue on oral antibiotics in the form of Ceftin 500 mg twice daily along with Flagyl 500 mg 3 times a day for the next 7 days and then may discontinue. Patient also continue with Diflucan once daily for the next 7 days and then may discontinue. Total time taken is greater than 35 minutes. History of present illness This is a 74-year-old female who was recently admitted with acute gastrointestinal bleed also found to have sigmoid colitis along with ischemic colitis and underwent subtotal colectomy and was being closely monitored. Patient also was found to have some acute renal failure and nephrology following and patient will be maintained on Lasix for fluid overload. Patient provided prescriptions for repeat labs in a few days to monitor electrolytes and kidney functions. Patient is maintained on potassium and will continue at this time. Magnesium was 1.7 and being replaced today. PT/OT evaluated the patient recommending subacute rehab as patient continued to have gait dysfunction and weakness. Patient is agreeable and will be going to [facility] for continued PT/OT therapy. Patient did have Covid 19 testing which was negative. Patient was also found to have an acute urinary tract infection with cultures repeated finalizing showing Megan albicans. Patient will continue on Diflucan once daily for the next 7 days to complete the course along with oral antibiotics in the form of Ceftin 500 mg twice daily and Flagyl 500 mg 3 times daily for the next 7 days and then may discontinue. Patient was on Coumadin although is currently being hold for recent gastrointestinal bleed and will need close monitoring and outpatient follow-up after surgical clearance. Currently no reports of chest pain, shortness of breath, or palpitations. Patient is afebrile. No reports of nausea or vomiting and patient is tolerating diet. Patient is maintained on low fiber diet and will continue at this time. Patient will be going to [facility] today. On exam vital signs are stable. Temp is 98.2F, pulse is 92, respirations are 19, blood pressure is 122/69, oxygen saturation is 95% on room air. Cardio S1, S2 are muffled. Respiratory system shows diminished breath sounds at the bases with no wheezing or rhonchi noted. Abdomen is soft and obese, and nontender. Nervous system shows diffuse weakness. Please refer to medication reconciliation sheet for a list of medications. Patient Condition at Discharge: Fair Plan - Discharge Summary Discharge Rx Participant: No New Discharge Prescriptions: New Cefuroxime Axetil [Ceftin] 500 mg PO BID 7 Days #14 tab Fluconazole [Diflucan] 100 mg PO DAILY 7 Days #7 tab metroNIDAZOLE [Flagyl] 500 mg PO Q8HR 7 Days #21 tab Folic Acid 1 mg PO DAILY@1200 tab Potassium Chloride ER [K-Dur 20] 40 meq PO BID tab.er.prt Metoprolol Tartrate [Lopressor] 25 mg PO TID tab Pantoprazole [Protonix] 40 mg PO AC-BRKFST tablet. Thiamine [Vitamin B-1] 100 mg PO DAILY@1200 tab Continue Mesalamine [Lialda] 1.2 gm PO BID Levothyroxine Sodium [Synthroid] 88 mcg PO DAILY Acetaminophen [Tylenol Extra Strength] 500 mg PO DAILY PRN PRN Reason: Pain Omeprazole [PriLOSEC] 20 mg PO AC-BRKFST PRN PRN Reason: Dyspepsia allopurinoL [Zyloprim] 100 mg PO TID Ferrous Sulfate [Iron (65 MG Elemental)] 325 mg PO DAILY Fluticasone Nasal [place] [Flonase Nasal [place]] 2 spr EA NOSTRIL DAILY PRN PRN Reason: Allergy Symptoms Diphenox-Atrop 2.5-0.025 mg [Lomotil] 2 tab PO TID-W/MEALS PRN PRN Reason: Constipation Multivitamins, Thera [Multivitamin (formulary)] 1 tab PO DAILY Hydrocortisone [Cortef] 10 mg PO BID 30 Days #60 tab Pregabalin [Lyrica] 200 mg PO BID #10 cap Acetaminophen-Codeine 300-30mg [Tylenol w/codeine #3] 1 - 2 tab PO Q4H PRN #12 tab PRN Reason: Pain Changed Furosemide [Lasix] 40 mg PO BID 30 Days #30 tab Discontinued Loperamide [Imodium] 4 mg PO DAILY PRN PRN Reason: Loose Stool Keybiotics 1 tab PO DAILY Warfarin [Coumadin] 2 mg PO DAILY Warfarin [Coumadin] 3 mg PO DIRECTED Potassium Chloride ER [K-Dur 20] 20 meq PO DAILY 30 Days #30 tab.er.prt Phenazopyridine [Pyridium] 200 mg PO TID 30 Days #90 tab Discharge Medication List Levothyroxine Sodium [Synthroid] 88 mcg PO DAILY 04/08/14 [History] Mesalamine [Lialda] 1.2 gm PO BID 04/08/14 [History] Acetaminophen [Tylenol Extra Strength] 500 mg PO DAILY PRN 08/01/18 [History] Omeprazole [PriLOSEC] 20 mg PO AC-BRKFST PRN 08/01/18 [History] allopurinoL [Zyloprim] 100 mg PO TID 08/01/18 [History] Diphenox-Atrop 2.5-0.025 mg [Lomotil] 2 tab PO TID-W/MEALS PRN 11/08/19 [History] Ferrous Sulfate [Iron (65 MG Elemental)] 325 mg PO DAILY 11/08/19 [History] Fluticasone Nasal [place] [Flonase Nasal [place]] 2 spr EA NOSTRIL DAILY PRN 11/08/19 [History] Multivitamins, Thera [Multivitamin (formulary)] 1 tab PO DAILY 04/28/20 [History] Hydrocortisone [Cortef] 10 mg PO BID 30 Days #60 tab 05/05/20 [Rx] Acetaminophen-Codeine 300-30mg [Tylenol w/codeine #3] 1 - 2 tab PO Q4H PRN #12 tab 05/28/20 [Rx] Cefuroxime Axetil [Ceftin] 500 mg PO BID 7 Days #14 tab 05/28/20 [Rx] Fluconazole [Diflucan] 100 mg PO DAILY 7 Days #7 tab 05/28/20 [Rx] Folic Acid 1 mg PO DAILY@1200 tab 05/28/20 [Rx] Furosemide [Lasix] 40 mg PO BID 30 Days #30 tab 05/28/20 [Rx] Metoprolol Tartrate [Lopressor] 25 mg PO TID tab 05/28/20 [Rx] Pantoprazole [Protonix] 40 mg PO AC-BRKFST tablet.dr 05/28/20 [Rx] Potassium Chloride ER [K-Dur 20] 40 meq PO BID tab.er.prt 05/28/20 [Rx] Pregabalin [Lyrica] 200 mg PO BID #10 cap 05/28/20 [Rx] Thiamine [Vitamin B-1] 100 mg PO DAILY@1200 tab 05/28/20 [Rx] metroNIDAZOLE [Flagyl] 500 mg PO Q8HR 7 Days #21 tab 05/28/20 [Rx] Follow up Appointment(s)/Referral(s): Johnny To MD [Primary Care Provider] - 1-2 days Herb Jack MD [STAFF PHYSICIAN] - 06/03/20 8:00 am (FOR CABA REMOVAL.) [facility], [NON-STAFF] - 1-2 Days Edd Lowery MD [STAFF PHYSICIAN] - 1 Week Ambulatory/Diagnostic Orders: Basic Metabolic Panel [LAB.AMB] Time Frame: 3 Days, Location: None Selected Complete Blood Count w/diff [LAB.AMB] Time Frame: 3 Days, Location: None Selected Activity/Diet/Wound Care/Special Instructions: Patient is going to [employer] [facility] as tolerated Continue with antibiotics for 7 days and then may discontinue Follow-up with surgery in the outpatient setting Follow-up with urology as discussed and scheduled Follow-up with primary care provider Repeat BMP and CBC in 2-3 days Continue current diet low fiber Follow-up with primary care provider upon discharge to determine when Coumadin should be resumed Patient is to be discharged home with Caba catheter. She should follow up with Dr. Jack in June 03, 2020 at 8 AM for Caba catheter removal. No lifting over 10 pounds You may shower. No soaking or tub baths for 2 weeks after surgery Discharge Disposition: TRANSFER TO SNF/ECF
--- NOTE | 2020-05-28 14:34 | P.PN ---
Subjective Progress Note Date: 05/28/20 CHIEF COMPLAINT: Syncope and blood in stool HISTORY OF PRESENT ILLNESS: Patient is status post lower anterior resection, mesh removal, lysis of adhesions and incisional hernia repair. Patient had 1 loose bowel movement today Patient denies any nausea or vomiting. She is requiring Tylenol for abdominal pain. She's tolerating a low fiber diet. She's afebrile. Potassium 3.8 PHYSICAL EXAM: VITAL SIGNS: Reviewed. GENERAL: Well-developed in no acute distress. HEENT: No sclera icterus. Extraocular movements grossly intact. Moist buccal mucosa. Head is atraumatic, normocephalic. ABDOMEN: Soft. Nondistended incision dressing clean dry and intact NEUROLOGIC: Alert and oriented. Cranial nerves II through XII grossly intact. ASSESSMENT: 1. status post lower anterior resection, mesh removal, lysis of adhesions and incisional hernia repair 2. Acute lower GI bleed possibly secondary to diverticular bleed or from a rectal prolapse 3. Possible acute colitis, likely ischemic also can be contributing to GI bleed 4. Colovesical fistula 5. Incisional hernia 6. Hypokalemia PLAN: -Continue low fiber diet -continue Antibiotics per ID -GI prophylaxis Pepcid and DVT prophylaxis subcu heparin -Patient is surgically stable for discharge Physician Nodulizer note has been reviewed by physician. Signing provider agrees with the documented findings, assessment, and plan of care. Objective - Vital Signs Vital signs: Vital Signs Temp 98.2 F 05/28/20 11:35 Pulse 107 H 05/28/20 11:35 Resp 16 05/28/20 11:35 BP 102/55 05/28/20 11:35 Pulse Ox 96 05/28/20 11:35 Intake & Output 05/27/20 05/28/20 05/28/20 18:59 06:59 18:59 Intake Total 1280 120 Output Total 4000 1025 Balance -5077 -546 Intake: Intake, IV Titration 300 120 Amount Lactated Ringers 1,000 ml 120 @ 0 mls/hr IV [facility] Rx#:[id number] Magnesium Sulfate-D5w Pmx 100 1 gm In Dextrose/Water 1 100ml.bag @ 100 mls/hr IVPB ONCE [facility] Rx#: [id number] Potassium Chloride 10 meq 100 In Water For Injection 1 100ml.bag @ 100 mls/hr IVPB Q1HR [facility] Rx#: [id number] cefTRIAXone 2 gm In 100 Sodium Chloride 0.9% 50 ml @ 100 mls/hr IVPB Q24HR [facility] Rx#:[id number] Oral 980 Output: Urine 1500 1025 Uretheral (Peoples) 1500 Stool 2500 Other: Voiding Method Indwelling Catheter Indwelling Catheter Indwelling Catheter - Labs CBC & Chem 7: 05/27/20 06:44 05/28/20 06:43 Labs: Abnormal Lab Results - Last 24 Hours (Table) 05/28/20 05/28/20 Range/Units 06:43 06:43 PT 14.6 H (9.0-12.0) sec INR 1.5 H (<1.2) Carbon Dioxide 36 H (22-30) mmol/L Creatinine 1.48 H (0.52-1.04) mg/dL Glucose 129 H (74-99) mg/dL Calcium 7.7 L (8.4-10.2) mg/dL
--- NOTE | 2020-05-28 16:26 | PN ---
PROGRESS NOTE Patient is seen for followup for acute kidney injury and chronic kidney disease. She is currently maintained on IV Lasix for increased lower extremity edema and volume overload. Patient has been diuresing well. Her leg swelling has improved. PHYSICAL EXAMINATION: On examination today, blood pressure was 102/55, heart rate 107 per minute. She is afebrile. Examination of lower extremities shows much decreased edema. Abdomen is soft, obese, nontender. 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 LABS: Labs show sodium 139, potassium 3.8, chloride 101, BUN 12, serum creatinine 1.48. ASSESSMENT: 1. Chronic kidney disease secondary to nephrosclerosis. Baseline creatinine about 1.3 to 1.4 mg/dL. 2. Volume overload, slowly improving. Continue with IV Lasix twice a day. 3. Acute on top of chronic diastolic congestive heart failure with moderate tricuspid regurgitation, pulmonary hypertension. 4. Acute gastrointestinal bleed, status post lower anterior resection and removal of mesh. 5. Vancomycin-resistant Enterococcus and Megan urinary tract infections, maintained on antibiotics and anti-fungal agents. 6. Adrenal insufficiency, maintained on Cortef. 7. Hypokalemia, status post supplementation. PLAN: Continue with IV Lasix. Monitor electrolytes. Repeat labs in a.m. MMODL / IJN: [id number] /
== END 2020-05-28 16:05 | DRG 329 ==
LOC: EC 13:28 → 3NCARDOBS 15:30 → UNDODISOB 05-12 13:17 → 2SICU 05-12 14:23 → OBSVTOIN 05-12 14:32 → 3SCARD 05-21 13:52
PROVIDERS: ADMIT Hospitalist; ATTEND Hospitalist
PROC: 5A09557 Assistance with Respiratory Ventilation, Greater than 96 Consecutive Hours, Continuous Positive Airway Pressure (ICD-10-PCS; 2020-05-14)
PROC: 30233N1 Transfusion of Nonautologous Red Blood Cells into Peripheral Vein, Percutaneous Approach (ICD-10-PCS; 2020-05-21)
PROC: 0TNB0ZZ Release Bladder, Open Approach (ICD-10-PCS; principal; 2020-05-21 10:50)
PROC: 0DNP0ZZ Release Rectum, Open Approach (ICD-10-PCS; principal; 2020-05-21 10:50)
PROC: 0WPF0JZ Removal of Synthetic Substitute from Abdominal Wall, Open Approach (ICD-10-PCS; principal; 2020-05-21 10:50)
PROC: 0DTN0ZZ Resection of Sigmoid Colon, Open Approach (ICD-10-PCS; principal; 2020-05-21 10:50)
PROC: 0WQF0ZZ Repair Abdominal Wall, Open Approach (ICD-10-PCS; principal; 2020-05-21 10:50)
DX: K55.039 Acute (reversible) ischemia of large intestine, extent unspecified (principal); N17.0 Acute kidney failure with tubular necrosis; I50.33 Acute on chronic diastolic (congestive) heart failure; N32.1 Vesicointestinal fistula; I13.0 Hypertensive heart and chronic kidney disease with heart failure and stage 1 through stage 4 chronic kidney disease, or unspecified chronic kidney disease; I48.11 Longstanding persistent atrial fibrillation; E87.1 Hypo-osmolality and hyponatremia; E27.40 Unspecified adrenocortical insufficiency; T83.518A Infection and inflammatory reaction due to other urinary catheter, initial encounter; B37.49 Other urogenital candidiasis; Z16.21 Resistance to vancomycin; F05 Delirium due to known physiological condition; D69.6 Thrombocytopenia, unspecified; I27.20 Pulmonary hypertension, unspecified; N18.3 Chronic kidney disease, stage 3 (moderate); N30.11 Interstitial cystitis (chronic) with hematuria; N30.10 Interstitial cystitis (chronic) without hematuria; E11.22 Type 2 diabetes mellitus with diabetic chronic kidney disease; E11.42 Type 2 diabetes mellitus with diabetic polyneuropathy; M06.9 Rheumatoid arthritis, unspecified; Z20.828 Contact with and (suspected) exposure to other viral communicable diseases; E86.0 Dehydration; K52.831 Collagenous colitis; K57.30 Diverticulosis of large intestine without perforation or abscess without bleeding; K43.2 Incisional hernia without obstruction or gangrene; I65.23 Occlusion and stenosis of bilateral carotid arteries; B95.2 Enterococcus as the cause of diseases classified elsewhere; I07.1 Rheumatic tricuspid insufficiency; G47.61 Periodic limb movement disorder; I95.1 Orthostatic hypotension; G14 Postpolio syndrome; E03.9 Hypothyroidism, unspecified; G47.33 Obstructive sleep apnea (adult) (pediatric); M79.7 Fibromyalgia; E78.00 Pure hypercholesterolemia, unspecified; E78.5 Hyperlipidemia, unspecified; E83.42 Hypomagnesemia; E87.5 Hyperkalemia; E87.6 Hypokalemia; E80.7 Disorder of bilirubin metabolism, unspecified; R74.0 Nonspecific elevation of levels of transaminase and lactic acid dehydrogenase [LDH]; R79.1 Abnormal coagulation profile; T45.515A Adverse effect of anticoagulants, initial encounter; D50.0 Iron deficiency anemia secondary to blood loss (chronic); D53.9 Nutritional anemia, unspecified; T50.2X5A Adverse effect of carbonic-anhydrase inhibitors, benzothiadiazides and other diuretics, initial encounter; J45.20 Mild intermittent asthma, uncomplicated; E86.9 Volume depletion, unspecified; N13.9 Obstructive and reflux uropathy, unspecified; R26.9 Unspecified abnormalities of gait and mobility; M19.90 Unspecified osteoarthritis, unspecified site; H91.90 Unspecified hearing loss, unspecified ear; H54.7 Unspecified visual loss; E66.9 Obesity, unspecified; Z68.33 Body mass index [BMI] 33.0-33.9, adult; Z79.01 Long term (current) use of anticoagulants; Z79.890 Hormone replacement therapy; Z79.52 Long term (current) use of systemic steroids; Z79.899 Other long term (current) drug therapy; Z71.3 Dietary counseling and surveillance; Z86.19 Personal history of other infectious and parasitic diseases; Z86.79 Personal history of other diseases of the circulatory system; Z87.09 Personal history of other diseases of the respiratory system; Z87.81 Personal history of (healed) traumatic fracture; Z90.49 Acquired absence of other specified parts of digestive tract; Z87.19 Personal history of other diseases of the digestive system; Z90.710 Acquired absence of both cervix and uterus; Z87.42 Personal history of other diseases of the female genital tract; Z87.39 Personal history of other diseases of the musculoskeletal system and connective tissue; Z98.51 Tubal ligation status; Z86.59 Personal history of other mental and behavioral disorders; Z87.440 Personal history of urinary (tract) infections; Z98.890 Other specified postprocedural states; Z88.5 Allergy status to narcotic agent; Z88.2 Allergy status to sulfonamides; Z88.1 Allergy status to other antibiotic agents; Z82.49 Family history of ischemic heart disease and other diseases of the circulatory system; Z80.9 Family history of malignant neoplasm, unspecified
CPT/HCPCS: 36415; 70450; 71045; 71046; 74176; 80048; 80051; 80053; 80061; 81001; 82550; 83605; 83630; 83735; 83880; 84100; 84132; 84484; 85025; 85027; 85610; 85730; 86850; 86900; 86901; 86920; 87040; 87045; 87046; 87077; 87086; 87186; 87324; 88307; 93005; 93880; 96360; 99285

== ENCOUNTER 2020-06-27 21:21 | Inpatient (IN) | payer MEDICARE ==
[2020-06-27] MEDS ORDERED: SODIUM CHLORIDE 0.9% 1,000 ML IV STA ×2 (21:26)
--- NOTE | 2020-06-27 21:38 | ED ---
Fall HPI - General Chief Complaint: Fall Stated Complaint: Fall Time Seen by Provider: 06/27/20 21:25 Source: patient, EMS, RN notes reviewed, old records reviewed Mode of arrival: EMS - History of Present Illness Initial Comments: This is a 74-year-old female trip and fall, possible fall left hip pain. Severe left hip pain. Patient is unable to ambulate, brought in by EMS for severe left hip pain and deformity. Patient is a recent surgery patient. 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 Witnessed: yes, by bystander Place Fall Occurred: fdc/SNF Loss of Consciousness: none Prolonged Down Time?: no Symptoms Prior to Fall: none Location - Extremities: Left: Thigh, Leg Severity: severe Severity scale (1-10): 10 Quality: sharp Context: tripped/slipped Associated Symptoms: denies - Related Data Home Medications Medication Instructions Recorded Confirmed Levothyroxine Sodium [Synthroid] 88 mcg PO DAILY 04/08/14 05/11/20 Mesalamine [Lialda] 1.2 gm PO BID 04/08/14 05/11/20 Acetaminophen [Tylenol Extra 500 mg PO DAILY PRN 08/01/18 05/11/20 Strength] Omeprazole [PriLOSEC] 20 mg PO AC-BRKFST PRN 08/01/18 05/11/20 allopurinoL [Zyloprim] 100 mg PO TID 08/01/18 05/11/20 Diphenox-Atrop 2.5-0.025 mg 2 tab PO TID-W/MEALS PRN 11/08/19 05/11/20 [Lomotil] Ferrous Sulfate [Iron (65 MG 325 mg PO DAILY 11/08/19 05/11/20 Elemental)] Fluticasone Nasal [place] [Flonase 2 spr EA NOSTRIL DAILY PRN 11/08/19 05/11/20 Nasal [place]] Multivitamins, Thera [Multivitamin 1 tab PO DAILY 04/28/20 05/11/20 (formulary)] Previous Rx's Medication Instructions Recorded Hydrocortisone [Cortef] 10 mg PO BID 30 Days #60 tab 05/05/20 Acetaminophen-Codeine 300-30mg 1 - 2 tab PO Q4H PRN #12 tab 05/28/20 [Tylenol w/codeine #3] Cefuroxime Axetil [Ceftin] 500 mg PO BID 7 Days #14 tab 05/28/20 Fluconazole [Diflucan] 100 mg PO DAILY 7 Days #7 tab 05/28/20 Folic Acid 1 mg PO DAILY@1200 tab 05/28/20 Furosemide [Lasix] 40 mg PO BID 30 Days #30 tab 05/28/20 Metoprolol Tartrate [Lopressor] 25 mg PO TID tab 05/28/20 Pantoprazole [Protonix] 40 mg PO AC-BRKFST tablet.dr 05/28/20 Potassium Chloride ER [K-Dur 20] 40 meq PO BID tab.er.prt 05/28/20 Pregabalin [Lyrica] 200 mg PO BID #10 cap 05/28/20 Thiamine [Vitamin B-1] 100 mg PO DAILY@1200 tab 05/28/20 metroNIDAZOLE [Flagyl] 500 mg PO Q8HR 7 Days #21 tab 05/28/20 Allergies Allergy/AdvReac Type Severity Reaction Status Date / Time nitrofurantoin Allergy Severe Rash/Hives Verified 05/11/20 15:48 [From Macrobid] nitrofurantoin Allergy Severe Rash/Hives Verified 05/11/20 15:48 macrocrystalline [From Macrobid] sulfamethoxazole Allergy Severe Rash/Hives Verified 05/11/20 15:48 [From Bactrim] trimethoprim [From Bactrim] Allergy Severe Rash/Hives Verified 05/11/20 15:48 hydromorphone HCl AdvReac Severe Nausea & Verified 05/11/20 15:48 [From Dilaudid] Vomiting Review of Systems ROS Statement: Those systems with pertinent positive or pertinent negative responses have been documented in the HPI. ROS Other: All systems not noted in ROS Statement are negative. 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 "Dr. Abdi Riggs fixed a hole in my heart". Cardioversion. L3-4 lumber laminectomy. per pt she is to have a bowel resection on 05/21/20 Past Anesthesia/Blood Transfusion Reactions: Motion Sickness, Postoperative Nausea & Vomiting (PONV) Additional Past Anesthesia/Blood Transfusion Reaction / Comment(s): has letter from "post ochoa dr with anesthesia recommendations" pt to bring with her. "takes long time to come out of anesthesia" Past Psychological History: Depression Smoking Status: Never smoker Past Alcohol Use History: Occasional Past Drug Use History: None Reported - Past Family History Father Family Medical History: Myocardial Infarction ([place]) Mother Family Medical History: Cancer Additional Family Medical History / Comment(s): Suspected. General Exam Limitations: physical limitation General appearance: alert, in no apparent distress Head exam: Present: atraumatic, normocephalic, normal inspection Eye exam: Present: normal appearance, PERRL, EOMI. Absent: scleral icterus, conjunctival injection, periorbital swelling ENT exam: Present: normal exam, mucous membranes moist Neck exam: Present: normal inspection. Absent: tenderness, meningismus, lymphadenopathy Respiratory exam: Present: normal lung sounds bilaterally. Absent: respiratory distress, wheezes, rales, rhonchi, stridor Cardiovascular Exam: Present: regular rate, normal rhythm, normal heart sounds. Absent: systolic murmur, diastolic murmur, rubs, gallop, clicks GI/Abdominal exam: Present: soft, normal bowel sounds. Absent: distended, tenderness, guarding, rebound, rigid Extremities exam: Present: normal inspection, full ROM, normal capillary refill, other (Left lower extremity deformed, shortened and rotated). Absent: tenderness, pedal edema, joint swelling, calf tenderness Back exam: Present: normal inspection Neurological exam: Present: alert, oriented X3, CN II-XII intact Psychiatric exam: Present: normal affect, normal mood Skin exam: Present: warm, dry, intact, normal color. Absent: rash Course Vital Signs 06/27/20 21:23 Temperature 98.0 F Pulse Rate 94 Respiratory 16 Rate Blood Pressure 121/60 O2 Sat by Pulse 100 Oximetry - Reevaluation(s) Reevaluation #1: 06/27/20 22:49 Medical record is reviewed Reevaluation #2: 06/27/20 22:49 A she has pain is improved currently Reevaluation #3: 06/27/20 22:49 Focal patient and family regarding findings here in the ER, questions are answered Medical Decision Making - Medical Decision Making 74 female DF for evaluation Of fall, trauma fall resulting in left hip fracture - Lab Data Result diagrams: 06/27/20 22:05 06/27/20 22:05 - EKG Data -: EKG Interpreted by Me (EKG shows A. fib 103 QRS 80 QTc 416) - Radiology Data Radiology results: report reviewed (Chest x-rays negative for acute disease x- ray left hip is negative for hip fracture), image reviewed Disposition Clinical Impression: Fall, Closed left hip fracture, UTI (urinary tract infection) Disposition: ADMITTED IP TO THIS HOSP Condition: Fair Is patient prescribed a controlled substance at d/c from ED?: No
[2020-06-27] MEDS: MORPHINE SULFATE 4 MG/ML SYRINGE IV PRN (21:58)
[2020-06-27 22:15] LABS: Basophils # (A) 0.1 k/uL (0-0.2); Basophils % (A) 0 %; Eosinophils # (A) 0.3 k/uL (0-0.7); Eosinophils % (A) 2 %; HCT 35.6 % (34.0-46.0); HGB 11.2 gm/dL (11.4-16.0); Hypochromasia Moderate; Lymphocytes # (A) 1.2 k/uL (1.0-4.8); Lymphocytes % (A) 9 %; MCH 31.1 pg (25.0-35.0); MCHC 31.3 g/dL (31.0-37.0); MCV 99.1 fL (80.0-100.0); Macrocytosis Slight; Mean Platelet Volume 9.5; Monocytes # (A) 0.5 k/uL (0-1.0); Monocytes % (A) 4 %; Neutrophils # (A) 10.9 k/uL (1.3-7.7); Neutrophils % (A) 84 %; Platelet Count 171 k/uL (150-450); RBC 3.59 m/uL (3.80-5.40); RDW 15.7 % (11.5-15.5)
--- NOTE | 2020-06-27 22:17 | XR ---
EXAMINATION TYPE: XR chest 1V DATE OF EXAM: 06/27/2020 COMPARISON: 05/23/2020 HISTORY: Short of breath TECHNIQUE: FINDINGS: There is no heart failure nor confluent pneumonic infiltrate. Costophrenic angles are clear . There is slight blunting left costophrenic angle. IMPRESSION: Mild pleural reaction at the left lung base improved compared to old exam.
[2020-06-27 22:23] LABS: INR 1.9 (<1.2); Partial Thromboplastin Time 33.5 sec (22.0-30.0); Prothrombin Time 18.4 sec (9.0-12.0)
[2020-06-27 22:27] LABS: Albumin 2.9 g/dL (3.5-5.0); Calcium 8.5 mg/dL (8.4-10.2); Magnesium 1.9 mg/dL (1.6-2.3); Phosphorus 3.8 mg/dL (2.5-4.5); Potassium 3.8 mmol/L (3.5-5.1); Total Bilirubin 0.5 mg/dL (0.2-1.3); Total Protein 5.3 g/dL (6.3-8.2)
--- NOTE | 2020-06-27 22:28 | XR ---
EXAMINATION TYPE: XR Hip LT and AP Pelvis DATE OF EXAM: 06/27/2020 COMPARISON: NONE HISTORY: Fall TECHNIQUE: 4 views FINDINGS: There is a subcapital fracture left femur with impaction 1.5 cm. There is no dislocation. P elvic ring is intact. Sacroiliac joints are intact. IMPRESSION: Acute impacted subcapital fracture left femur.
[2020-06-27] MEDS ORDERED: SODIUM CHLORIDE 0.9% 1,000 ML IV ONE (23:07)
[2020-06-27] MEDS ORDERED: LINEZOLID 600 MG in DEXTROSE/WATER 1 300ML.BAG IVPB ONE (23:30)
[2020-06-27] MEDS: HYDROmorphone 1 MG/ML 1 ML SYRINGE IVP PRN (23:50)
[2020-06-28] MEDS: HYDROmorphone 1 MG/ML 1 ML SYRINGE IVP PRN ×3 (04:21→13:04)
[2020-06-28 04:39] LABS: Appearance,Urine Turbid (Clear); Bacteria,Urine Moderate /hpf; Bilirubin,Urine Negative (Negative); Blood,Urine Small (Negative); Color,Urine Light Red; Glucose,Urine (UA) Negative (Negative); Ketones,Urine Negative (Negative); Leukocyte Esterase,Urine Large (Negative); Nitrite,Urine Negative (Negative); PH, Urine 5.5 (5.0-8.0); Protein,Urine 2+ (Negative); RBC,Urine 41 /hpf (0-5); Squamous Epithelial Cell,Urine 6 /hpf (0-4); Urobilinogen,Urine <2.0 mg/dL (<2.0); WBC,Urine >182 /hpf (0-5)
[2020-06-28 04:41] LABS: Specific Gravity,Urine 1.009 (1.001-1.035)
[2020-06-28] MEDS: LINEZOLID 600 MG in DEXTROSE/WATER 1 300ML.BAG IVPB SCH ×2 (10:52→23:10)
--- NOTE | 2020-06-28 10:58 | P.PN ---
Progress Note - Text Progress Note Date: 06/28/20 The patient is seen and examined at bedside. I discussed the case at length with our physician executive assistant to general counsel and she was able to see the patient as well. She is providing full consultation dictation. The patient has a new acute left hip femoral neck fracture due to her fall. The patient has muscle medical issues and is on Coumadin with INR 1.9. Patient has active urinary tract infection. In regards to patient's left hip fracture her best course of treatment would be to pursue left hip hemiarthroplasty. This would provide her the best chance of mobilization hand ambulation. I discussed this with her at length. Discussed the issues of her injury and the proposed treatment options ranging from conservative to surgical. Patient understands her options and understands that surgery gives her the best chance of recovery. She is interested in pursuing surgical intervention with left hip hemiarthroplasty as soon as she is able. The patient has a number of medical issues currently that we would to address and stabilized prior to her surgery. Her urinary tract infection poses a signi ficant risk for her short ago through with intervention and fixation at her left hip. Also her INR is still a bit high we will continue to hold her blood thinners to normalize her coagulation status. We will tentatively plan for surgical intervention for Tuesday if patient is medically able to pursue surgery. I discussed this with the patient and she understands. We will continue follow her closely and hopefully plan for surgery on Tuesday.
--- NOTE | 2020-06-28 11:01 | P.GSCN ---
History of Present Illness Consult date: 06/28/20 History of present illness: The patient is a 74-year-old female. She was admitted to the hospital with a fractured hip. Patient has a complicated general surgical and urologic history due to a colo-vesicle fistula elevated by pelvic mesh. and Guero surgically move this about a month ago. 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 She had a repeat culture a few days ago and it shows enterococcus but not vancomycin resistant. Dr. Jack was asked to see the patient. Urologically the patient is otherwise doing well. Review of Systems All systems: negative - Constitutional Denies fever, Denies weight loss - EENT Eyes: denies blurred vision Ears, nose, mouth and throat: Denies dysphagia - Cardiovascular Denies chest pain, Denies shortness of breath - Respiratory Denies cough, Denies 7 - Gastrointestinal Reports as per HPI - Genitourinary Genitourinary: Reports as per HPI, Denies dysuria, Denies hematuria - Integumentary Denies rash, Denies unusual bruising - Neurological Denies headaches, Denies syncope - Hematologic/Lymphatic Denies easy bleeding, Denies easy bruising Past Medical History Past Medical History: Asthma, Fibromyalgia, Hypertension, Osteoarthritis (OA), Rheumatoid Arthritis (RA), Sleep Apnea/CPAP/BIPAP, Thyroid Disorder Additional Past Medical History / Comment(s): Obstructive sleep apnea, mild intermittent bronchial asthma, chronic atrial fibrillation, ALLERGIC rhinitis, diabetes mellitus, hypertension, chronic kidney disease, obesity, history of left tibial plateau fracture, inflammatory bowel disease, post polio syndrome, hypertension, osteoarthritis, fibromyalgia, hypothyroidism, 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 "Dr. Abdi Riggs fixed a hole in my heart". Cardioversion. L3-4 lumber laminectomy. per pt she is to have a bowel resection on 05/21/20 Past Anesthesia/Blood Transfusion Reactions: Motion Sickness, Postoperative Nausea & Vomiting (PONV) Additional Past Anesthesia/Blood Transfusion Reaction / Comm: has letter from "post polio with anesthesia recommendations" pt to bring with her. "takes long time to come out of anesthesia" Past Psychological History: Depression Smoking Status: Never smoker Past Alcohol Use History: Occasional Past Drug Use History: None Reported - Past Family History Father Family Medical History: Myocardial Infarction ([place]) Mother Family Medical History: Cancer Additional Family Medical History / Comment(s): Suspected. Medications and Allergies Home Medications Medication Instructions Recorded Confirmed Type Levothyroxine Sodium [Synthroid] 88 mcg PO DAILY 04/08/14 06/27/20 History Mesalamine [Lialda] 1.2 gm PO BID 04/08/14 06/27/20 History Acetaminophen [Tylenol Extra 500 mg PO DAILY PRN 08/01/18 06/27/20 History Strength] allopurinoL [Zyloprim] 100 mg PO TID 08/01/18 06/27/20 History Diphenox-Atrop 2.5-0.025 mg 2 tab PO TID-W/MEALS PRN 11/08/19 06/27/20 History [Lomotil] Ferrous Sulfate [Iron (65 MG 325 mg PO HS 11/08/19 06/27/20 History Elemental)] Fluticasone Nasal [place] [Flonase 2 spr EA NOSTRIL DAILY PRN 11/08/19 06/27/20 History Nasal [place]] Multivitamins, Thera [Multivitamin 1 tab PO HS 04/28/20 06/27/20 History (formulary)] Hydrocortisone [Cortef] 10 mg PO BID 30 Days #60 tab 05/05/20 06/27/20 Rx Folic Acid 1 mg PO DAILY@1200 tab 05/28/20 06/27/20 Rx Metoprolol Tartrate [Lopressor] 25 mg PO TID tab 05/28/20 06/27/20 Rx Pantoprazole [Protonix] 40 mg PO AC-BRKFST tablet. 05/28/20 06/27/20 Rx Pregabalin [Lyrica] 200 mg PO BID #10 cap 05/28/20 06/27/20 Rx Thiamine [Vitamin B-1] 100 mg PO DAILY@1200 tab 05/28/20 06/27/20 Rx Doxycycline Hyclate 100 mg PO BID 06/27/20 06/28/20 History L.acidoph,Paracasei, B.lactis 1 tab PO DAILY@1700 06/27/20 06/27/20 History [Probiotic] Warfarin [Coumadin] 2 mg PO DAILY@169906/27/20 06/27/20 History Allergies Allergy/AdvReac Type Severity Reaction Status Date / Time nitrofurantoin Allergy Severe Rash/Hives Verified 05/11/20 15:48 [From Macrobid] nitrofurantoin Allergy Severe Rash/Hives Verified 05/11/20 15:48 macrocrystalline [From Macrobid] sulfamethoxazole Allergy Severe Rash/Hives Verified 05/11/20 15:48 [From Bactrim] trimethoprim [From Bactrim] Allergy Severe Rash/Hives Verified 05/11/20 15:48 hydromorphone HCl AdvReac Severe Nausea & Verified 05/11/20 15:48 [From Dilaudid] Vomiting Surgical - Exam Vital Signs Temp Pulse Resp BP Pulse Ox 98.0 F 94 16 121/60 100 06/27/20 21:23 06/27/20 21:23 06/27/20 21:23 06/27/20 21:23 06/27/20 21:23 - General well developed, moderate distress - ENT no hearing loss - Neck trachea midline - Respiratory normal expansion, normal respiratory effort - Cardiovascular Rhythm: regular - Abdomen Abdomen: soft - Psychiatric oriented to time, oriented to person, oriented to place, speech is normal, memory intact Results - Labs 06/27/20 22:05 06/27/20 22:05 Abnormal Lab Results - Last 24 Hours (Table) 06/27/20 06/27/20 06/27/20 Range/Units 22:05 22:05 22:05 WBC 13.0 H (3.8-10.6) k/uL RBC 3.59 L (3.80-5.40) m/uL Hgb 11.2 L (11.4-16.0) gm/dL RDW 15.7 H (11.5-15.5) % Neutrophils # 10.9 H (1.3-7.7) k/uL PT 18.4 H (9.0-12.0) sec INR 1.9 H (<1.2) APTT 33.5 H (22.0-30.0) sec Sodium 133 L (137-145) mmol/L Chloride 113 H (98-107) mmol/L Carbon Dioxide 13 L (22-30) mmol/L BUN 37 H (7-17) mg/dL Creatinine 2.16 H (0.52-1.04) mg/dL Glucose 118 H (74-99) mg/dL Plasma Lactic Acid Gabe (0.7-2.0) mmol/L Creatine Kinase 28 L (30-135) U/L Total Protein 5.3 L (6.3-8.2) g/dL Albumin 2.9 L (3.5-5.0) g/dL Urine Appearance (Clear) Urine Protein (Negative) Urine Blood (Negative) Ur Leukocyte Esterase (Negative) Urine RBC (0-5) /hpf Urine WBC (0-5) /hpf Urine WBC Clumps (None) /hpf Ur Squamous Epith Cells (0-4) /hpf Urine Bacteria (None) /hpf 06/27/20 06/28/20 Range/Units 22:05 04:15 WBC (3.8-10.6) k/uL RBC (3.80-5.40) m/uL Hgb (11.4-16.0) gm/dL RDW (11.5-15.5) % Neutrophils # (1.3-7.7) k/uL PT (9.0-12.0) sec INR (<1.2) APTT (22.0-30.0) sec Sodium (137-145) mmol/L Chloride (98-107) mmol/L Carbon Dioxide (22-30) mmol/L BUN (7-17) mg/dL Creatinine (0.52-1.04) mg/dL Glucose (74-99) mg/dL Plasma Lactic Acid Gabe 0.6 L (0.7-2.0) mmol/L Creatine Kinase (30-135) U/L Total Protein (6.3-8.2) g/dL Albumin (3.5-5.0) g/dL Urine Appearance Turbid H (Clear) Urine Protein 2+ H (Negative) Urine Blood Small H (Negative) Ur Leukocyte Esterase Large H (Negative) Urine RBC 41 H (0-5) /hpf Urine WBC >182 H (0-5) /hpf Urine WBC Clumps Many H (None) /hpf Ur Squamous Epith Cells 6 H (0-4) /hpf Urine Bacteria Moderate H (None) /hpf Microbiology - Last 24 Hours (Table) 06/28/20 04:15 Urine Culture - Preliminary Urine,Voided Diabetes panel 06/27/20 Range/Units 22:05 Sodium 133 L (137-145) mmol/L Potassium 3.8 (3.5-5.1) mmol/L Chloride 113 H (98-107) mmol/L Carbon Dioxide 13 L (22-30) mmol/L BUN 37 H (7-17) mg/dL Creatinine 2.16 H (0.52-1.04) mg/dL Glucose 118 H (74-99) mg/dL Calcium 8.5 (8.4-10.2) mg/dL AST 23 (14-36) U/L ALT 9 (4-34) U/L Alkaline Phosphatase 80 (38-126) U/L Total Protein 5.3 L (6.3-8.2) g/dL Albumin 2.9 L (3.5-5.0) g/dL Calcium panel 06/27/20 Range/Units 22:05 Calcium 8.5 (8.4-10.2) mg/dL Phosphorus 3.8 (2.5-4.5) mg/dL Albumin 2.9 L (3.5-5.0) g/dL Pituitary panel 06/27/20 Range/Units 22:05 Sodium 133 L (137-145) mmol/L Potassium 3.8 (3.5-5.1) mmol/L Chloride 113 H (98-107) mmol/L Carbon Dioxide 13 L (22-30) mmol/L BUN 37 H (7-17) mg/dL Creatinine 2.16 H (0.52-1.04) mg/dL Glucose 118 H (74-99) mg/dL Calcium 8.5 (8.4-10.2) mg/dL Adrenal panel 06/27/20 Range/Units 22:05 Sodium 133 L (137-145) mmol/L Potassium 3.8 (3.5-5.1) mmol/L Chloride 113 H (98-107) mmol/L Carbon Dioxide 13 L (22-30) mmol/L BUN 37 H (7-17) mg/dL Creatinine 2.16 H (0.52-1.04) mg/dL Glucose 118 H (74-99) mg/dL Calcium 8.5 (8.4-10.2) mg/dL Total Bilirubin 0.5 (0.2-1.3) mg/dL AST 23 (14-36) U/L ALT 9 (4-34) U/L Alkaline Phosphatase 80 (38-126) U/L Total Protein 5.3 L (6.3-8.2) g/dL Albumin 2.9 L (3.5-5.0) g/dL Assessment and Plan Assessment: Impression: Left hip fracture. History of colovesical fistula. History of enterococcus UTIs initially vancomycin resistant. Now a non-vancomycin resistant. Recommendations: Patient has been placed on culture specific antibiotics. The question is whether she can have surgical intervention on Tuesday with regards to the bladder infection. She should probably have a repeat urinalysis in 24 hours just to see where it stands for final decision is made.
[2020-06-28] MEDS: MORPHINE SULFATE 4 MG/ML SYRINGE IV PRN (11:31)
--- NOTE | 2020-06-28 11:39 | P.CNOR ---
History of Present Illness - [facility] Consult date: 06/28/20 History of present illness: This patient is a 74-year-old female with a past medical history of chronic kidney disease, atrial fibrillation currently on Coumadin, hypertension, UTIs, with a complicated history of urologic and general surgery procedures who was recently admitted and underwent a sigmoid colectomy who presented to [facility] emergency department on 06/27/2020 with complaints of left hip pain following a fall in the home. The patient states she was ambulating to bed last evening, which she tripped over her walker and fell directly onto the left hip. She states she experienced immediate pain in the hip and was unable to get off the ground. Therefore, she has called EMS. EMS transported the patient to the emergency department, x-rays of the left hip in the emergency department revealed a left subcapital femoral neck fracture. The patient was admitted under the care of Dr. Rivera with a consult placed to orthopedic surgery for surgical intervention of the left hip fracture. Currently, the patient is complaining of isolated left hip pain. She states her pain is currently well-controlled. The patient does have a history of a left TKA by Dr. Prakash Villeda in 2018. She denies pain in the left knee at this time. She denies additional complaints at this time. She denies numbness or tingling of the left lower extremity. She denies chest pain, shortness breath, nausea, vomiting, fevers, chills. Vital signs currently stable. 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 "Dr. Abdi Riggs fixed a hole in my heart". Cardioversion. L3-4 lumber laminectomy. per pt she is to have a bowel resection on 05/21/20 Past Anesthesia/Blood Transfusion Reactions: Motion Sickness, Postoperative Nausea & Vomiting (PONV) Additional Past Anesthesia/Blood Transfusion Reaction / Comm: has letter from "lindsay packer dr with anesthesia recommendations" pt to bring with her. "takes long time to come out of anesthesia" Past Psychological History: Depression Smoking Status: Never smoker Past Alcohol Use History: Occasional Past Drug Use History: None Reported - Past Family History Father Family Medical History: Myocardial Infarction ([place]) Mother Family Medical History: Cancer Additional Family Medical History / Comment(s): Suspected. Medications and Allergies Home Medications Medication Instructions Recorded Confirmed Type Levothyroxine Sodium [Synthroid] 88 mcg PO DAILY 04/08/14 06/27/20 History Mesalamine [Lialda] 1.2 gm PO BID 04/08/14 06/27/20 History Acetaminophen [Tylenol Extra 500 mg PO DAILY PRN 08/01/18 06/27/20 History Strength] allopurinoL [Zyloprim] 100 mg PO TID 08/01/18 06/27/20 History Diphenox-Atrop 2.5-0.025 mg 2 tab PO TID-W/MEALS PRN 11/08/19 06/27/20 History [Lomotil] Ferrous Sulfate [Iron (65 MG 325 mg PO HS 11/08/19 06/27/20 History Elemental)] Fluticasone Nasal [place] [Flonase 2 spr EA NOSTRIL DAILY PRN 11/08/19 06/27/20 History Nasal [place]] Multivitamins, Thera [Multivitamin 1 tab PO HS 04/28/20 06/27/20 History (formulary)] Hydrocortisone [Cortef] 10 mg PO BID 30 Days #60 tab 05/05/20 06/27/20 Rx Folic Acid 1 mg PO DAILY@1200 tab 05/28/20 06/27/20 Rx Metoprolol Tartrate [Lopressor] 25 mg PO TID tab 05/28/20 06/27/20 Rx Pantoprazole [Protonix] 40 mg PO [id number]-[id number] tablet. 05/28/20 06/27/20 Rx Pregabalin [Lyrica] 200 mg PO BID #10 cap 05/28/20 06/27/20 Rx Thiamine [Vitamin B-1] 100 mg PO DAILY@1200 tab 05/28/20 06/27/20 Rx Doxycycline Hyclate 100 mg PO BID 06/27/20 06/28/20 History L.acidoph,Paracasei, B.lactis 1 tab PO DAILY@1700 06/27/20 06/27/20 History [Probiotic] Warfarin [Coumadin] 2 mg PO DAILY@1700 06/27/20 06/27/20 History Allergies Allergy/AdvReac Type Severity Reaction Status Date / Time nitrofurantoin Allergy Severe Rash/Hives Verified 05/11/20 15:48 [From Macrobid] nitrofurantoin Allergy Severe Rash/Hives Verified 05/11/20 15:48 macrocrystalline [From Macrobid] sulfamethoxazole Allergy Severe Rash/Hives Verified 05/11/20 15:48 [From Bactrim] trimethoprim [From Bactrim] Allergy Severe Rash/Hives Verified 05/11/20 15:48 hydromorphone HCl AdvReac Severe Nausea & Verified 05/11/20 15:48 [From Dilaudid] Vomiting Physical Examination On examination, the patient is lying in bed in no apparent distress. She is alert and oriented 3. Her head appears normocephalic and atraumatic. Her breathing appears nonlabored. On inspection of the left hip, there is no ecchymosis, erythema, skin discoloration. No lacerations or abrasions. There is diffuse pain on palpation of the left hip and thigh. Thigh soft and sonido sible. On inspection of the left knee, there is a healed incision consistent with a prior total knee arthroplasty. There is no pain on palpation of the left knee. Range of motion of the left hip is not tested at this time. Left lower extremity is warm and well-perfused with brisk capillary refill distally. Dorsalis pedis pulse +2. Patient has good strength and range of motion of the left ankle. Motor and sensory function are intact of the left lower extremity. Calves are soft and nontender to palpation bilaterally. On inspection of the bilateral upper extremities, as well as right lower extremity, there are no obvious deformities or signs of trauma. Results Left hip x-ray 06/26/2020: Subcapital femoral neck fracture. - Labs Labs: Abnormal Lab Results - Last 24 Hours (Table) 06/27/20 06/27/20 06/27/20 Range/Units 22:05 22:05 22:05 WBC 13.0 H (3.8-10.6) k/uL RBC 3.59 L (3.80-5.40) m/uL Hgb 11.2 L (11.4-16.0) gm/dL RDW 15.7 H (11.5-15.5) % Neutrophils # 10.9 H (1.3-7.7) k/uL PT 18.4 H (9.0-12.0) sec INR 1.9 H (<1.2) APTT 33.5 H (22.0-30.0) sec Sodium 133 L (137-145) mmol/L Chloride 113 H (98-107) mmol/L Carbon Dioxide 13 L (22-30) mmol/L BUN 37 H (7-17) mg/dL Creatinine 2.16 H (0.52-1.04) mg/dL Glucose 118 H (74-99) mg/dL Plasma Lactic Acid Gabe (0.7-2.0) mmol/L Creatine Kinase 28 L (30-135) U/L Total Protein 5.3 L (6.3-8.2) g/dL Albumin 2.9 L (3.5-5.0) g/dL Urine Appearance (Clear) Urine Protein (Negative) Urine Blood (Negative) Ur Leukocyte Esterase (Negative) Urine RBC (0-5) /hpf Urine WBC (0-5) /hpf Urine WBC Clumps (None) /hpf Ur Squamous Epith Cells (0-4) /hpf Urine Bacteria (None) /hpf 06/27/20 06/28/20 Range/Units 22:05 04:15 WBC (3.8-10.6) k/uL RBC (3.80-5.40) m/uL Hgb (11.4-16.0) gm/dL RDW (11.5-15.5) % Neutrophils # (1.3-7.7) k/uL PT (9.0-12.0) sec INR (<1.2) APTT (22.0-30.0) sec Sodium (137-145) mmol/L Chloride (98-107) mmol/L Carbon Dioxide (22-30) mmol/L BUN (7-17) mg/dL Creatinine (0.52-1.04) mg/dL Glucose (74-99) mg/dL Plasma Lactic Acid Gabe 0.6 L (0.7-2.0) mmol/L Creatine Kinase (30-135) U/L Total Protein (6.3-8.2) g/dL Albumin (3.5-5.0) g/dL Urine Appearance Turbid H (Clear) Urine Protein 2+ H (Negative) Urine Blood Small H (Negative) Ur Leukocyte Esterase Large H (Negative) Urine RBC 41 H (0-5) /hpf Urine WBC >182 H (0-5) /hpf Urine WBC Clumps Many H (None) /hpf Ur Squamous Epith Cells 6 H (0-4) /hpf Urine Bacteria Moderate H (None) /hpf Microbiology - Last 24 Hours (Table) 06/28/20 04:15 Urine Culture - Preliminary Urine,Voided H & H 06/27/20 Range/Units 22:05 Hgb 11.2 L (11.4-16.0) gm/dL Hct 35.6 (34.0-46.0) % Coagulation 06/27/20 Range/Units 22:05 INR 1.9 H (<1.2) Result Diagrams: 06/27/20 22:05 06/27/20 22:05 Assessment and Plan Assessment: Subcapital femoral neck fracture, left. UTI Plan: - The clinical and imaging findings were discussed with patient. The patient was discussed in detail with Dr. Gilbert. Recommended a left hip hemiarthroplast y. Due to her current UTI and high INR, we will plan for surgery on Tuesday06/30/2020, pending medical clearance. - Patient will be made NPO at midnight on Tuesday evening for plans for surgery on Tuesday. - Patient should remain strictly nonweightbearing on left lower extremity. Bedrest. - Pain management as needed. - Medical management per admitting team.
[2020-06-28] MEDS ORDERED: DILTIAZEM DRIP BOLUS FROM BAG 1 MG SOLN IV ONE ×2 (12:40→16:32)
[2020-06-28] MEDS ORDERED: DILTIAZEM 125 MG in SODIUM CHLORIDE 0.9% 100 ML IV SCH (12:45)
[2020-06-28] MEDS: METOPROLOL TARTRATE 25 MG TAB PO SCH ×2 (14:47→23:21)
[2020-06-28] MEDS ORDERED: ALPRAZolam 0.25 MG TAB PO PRN (15:19)
[2020-06-28] MEDS ORDERED: DIPHENOX-ATROP 2.5-0.025 MG 1 EACH TAB PO PRN (15:20)
[2020-06-28] MEDS ORDERED: FLUTICASONE 50MCG/SPRAY NASAL 16GM EA NOSTRIL PRN (15:20)
[2020-06-28] MEDS ORDERED: ACETAMINOPHEN TAB 500 MG TAB PO PRN (15:20)
[2020-06-28] MEDS ORDERED: HYDROmorphone 0.5 MG/0.5 ML SYRINGE IVP PRN (15:22)
[2020-06-28 16:41] LABS: Glucose,Whole Blood 153 mg/dL (75-99)
[2020-06-28] MEDS: INSULIN ASPART (NovoLOG) 100 UNIT/ML VIAL SQ SCH ×2 (16:50→21:48)
[2020-06-28] MEDS: HYDROCORTISONE SUCCINATE 100 MG/2 ML VIAL IV SCH ×2 (16:50→23:10)
[2020-06-28] MEDS: allopurinoL 100 MG TAB PO SCH ×2 (16:51→21:47)
--- NOTE | 2020-06-28 16:52 | HP ---
HISTORY AND PHYSICAL DATE OF SERVICE: 06/28/2020 I am covering for Dr. Johnny To HISTORY OF PRESENT ILLNESS: This 74-year-old woman with a past medical history of multiple medical problems including asthma, fibromyalgia, hypertension, DJD, rheumatoid arthritis, being followed by Dr. Johnny To in the outpatient setting apparently slipped and fell and complaining of severe left hip pain. The patient unable to ambulate. EMS was called. The patient also was recently admitted to [facility] for GI bleed and possible sigmoid diverticulosis. The patient had sigmoid colectomy. The patient also had some change in mental status during that time, but currently the patient has severe pain. Patient given pain medications. Hip x-ray was done which showed acute impacted subcapital fracture of the left femur and a chest x-ray which was reviewed personally, showed mild pleural reaction on the left lung. The patient also was found to have atrial fibrillation with fast ventricular rate. Patient admitted for further evaluation and treatment. The patient also had renal failure. Creatinine is 2.16. The baseline is fluctuating. There is no history of fever, rigors. No history of headache, loss of consciousness, seizures at this time. Cardizem 5 mg bolus with 5 mg drip is recommended. The patient is being transferred to telemetry with Cardiology consultations. There is no history of fever, rigors. No history of headache, loss of consciousness, seizures. PAST MEDICAL HISTORY: History of asthma, fibromyalgia, hypertension, DJD, history of recent sigmoid colectomy, history of VRE. MEDICATIONS: Home medications are doxycycline, lactobacillus, Coumadin, multivitamins, thiamin, Lyrica, Protonix, Lopressor, Zyloprim, Lialda, Synthroid, Cortef, Folic acid, Flonase, iron sulfate, Lomotil, and Tylenol. ALLERGIES: NITROFURANTOIN, BACTRIM, DILAUDID. FAMILY HISTORY: History of myocardial infarction in the family. SOCIAL HISTORY: No history of smoking. No history of alcohol. REVIEW OF SYSTEMS: ENT: Diminished vision. Diminished hearing. CARDIOVASCULAR system: No angina or palpitations. RESPIRATORY: As mentioned earlier. GI: No nausea or vomiting. no dysuria or hematuria. NERVOUS SYSTEM: As mentioned earlier. ALLERGY/IMMUNOLOGY: No asthma or hayfever. MUSCULOSKELETAL as mentioned earlier. HEMATOLOGY/ONCOLOGY: No history of anemia. ENDOCRINE: No history of diabetes or hypothyroid. CONSTITUTIONAL: As mentioned earlier. DERMATOLOGY: Negative. RHEUMATOLOGY negative. PSYCHIATRY as mentioned earlier. PHYSICAL EXAMINATION: Alert and oriented times three. Pulse 67, irregular. Blood pressure 109/78, respiration 20, temperature 99.3, pulse ox 98% on room air. HEENT is conjunctivae normal. Oral mucosa moist. CARDIOVASCULAR: Tachycardia. Ejection systolic murmur. RESPIRATIONS: Breath sounds diminished in the bases. A few scattered rhonchi. ABDOMEN: Soft. No mass palpable. LEGS status post left hip fracture. Nervous system: Higher functions as mentioned earlier. Moves all 4 limbs. Mild tremors. Mild diffuse weakness. LYMPHATICS: No lymph nodes palpable in the neck, axillae or groin. SKIN: No ulcers. No rashes. No bleeding. JOINTS: No active deforming arthropathy. LABS: WBC 13, hemoglobin 11.2. INR 1.2. Sodium 133, creatinine is 2.1. ASSESSMENT: 1. Fall and left hip fracture. 2. Atrial fibrillation with fast ventricular rate. 3. History of recent sigmoid colectomy for gastrointestinal bleed. 4. Increased WBC. 5. Anemia, normocytic. 6. Elevated INR. 7. Acute renal failure with chronic kidney disease, stage 3 baseline. 8. Mild acidosis. 9. Hyponatremia. 10.Low TSH. 11acute urinary tract infection present on admission with VRE 12.History of asthma. 13.History of fibromyalgia. 14.Hypertension. 15.History degenerative joint disease. 16.History of rheumatoid arthritis. 17.History of obstructive sleep apnea. 18.History of diabetes type 2. 19.History of tibial plateau fracture. 20.History of inflammatory bowel disease. 21.History of post polio syndrome. 22.History of hypothyroidism. 23.History of cholecystectomy. 24.History of cardiac catheterization. 25.History of degenerative joint disease, L3-4 lumbar laminectomy. 26.History of depression. RECOMMENDATIONS AND DISCUSSION: In this 74-year-old woman who presented with multiple complex medical issues, we will monitor the patient closely, continue the current medications, management and symptomatic treatment. We will monitor the patient closely in the telemetry. Cardizem. Cardiology consultation. Two-D echo. Otherwise, also recommend empiric antibiotics. Obtain the cultures. Orthopedic evaluation. Currently the patient carries some extra risk because of the multiple complex medical issues as mentioned earlier. Once the patient is stabilized, we will clear the patient for surgery depending upon the general condition tomorrow. Otherwise, prognosis guarded. Beta judy was initiated. Discussed with family who understands and agrees. A copy of this dictation being forwarded to Dr. Johnny To who is the primary physician. Stress dose steroids also will be recommended with monitoring blood sugars closely. MMODL / IJN: [id number] / MTDD
[2020-06-28] MEDS: BALSALAZIDE DISODIUM 750 MG CAPSULE PO SCH (17:02)
--- NOTE | 2020-06-28 17:10 | CONS ---
CONSULTATION Mrs. Colin is a 74-year-old female with a history of chronic persistent atrial fibrillation, has been followed by Dr. Riggs on a regular basis, who presented with a fall at home and a fracture of the left hip. She has a known history of colovesical fistula status post surgical intervention by Dr. Lowery and Dr. Jack about a month or so ago. She had fractured her left hip and is scheduled for possible surgical intervention. She has received Dilaudid in the emergency room and she is somewhat somnolent but the history is obtained from her son. Apparently, she has been feeling weak since her surgery, but has no dyspnea, no chest pain. She has no prior history of obstructive coronary artery disease or heart failure. She has underwent an echocardiogram in April of this year that revealed a preserved ventricular size and systolic function. She has no significant peripheral edema. No PND, no orthopnea, and she had no syncope. MEDICATION: At home included Coumadin, Protonix, metoprolol tartrate 25 mg 3 times a day, Lialda, hydrocortisone, Lomotil. REVIEW OF SYSTEMS: RESPIRATORY SYSTEM: She has no recent wheezing or cough. No history of documented obstructive lung disease. GI SYSTEM: She had diarrhea, recent abdominal surgery. SYSTEM: No recent hematuria. She had urine tract infection. NERVOUS SYSTEM: No stroke or seizure. PHYSICAL EXAMINATION: She is a 74-year-old female, somnolent because of the sedation, opening her eyes to verbal stimulation. Blood pressure 109/70 with a heart rate in the 120s to 180s. HEAD: Normocephalic. Eyes sclerae anicteric. Neck good upstroke, no bruit. LUNGS: Clear to auscultation. HEART: Irregular regular. S1, S2. No S3 with systolic murmur. No diastolic murmur. No rub. ABDOMEN: Soft, no tenderness, no rebound. EXTREMITIES: No significant edema. LAB DATA: BUN and creatinine of 71 and 2.16, potassium 3.8. INR of 1.9, hemoglobin of 11.2, white blood cell of 13. Troponin less than 0.012. NT proBNP 2320. She had similar elevation in April. EKG revealed atrial fibrillation with a rapid ventricular response and nonspecific ST-T wave changes. Chest x-ray shows no acute infiltrate. Her hip x-ray showed impacted subcapital fracture of the left femur. IMPRESSION: 1. Fall and fracture of the left hip, evaluated by Dr. Gilbert for surgical intervention. 2. Chronic persistent atrial fibrillation. 3. Status post recent colovesical fistula repair. 4. Chronic kidney disease. 5. History of urinary tract infection. RECOMMENDATION: From the cardiac standpoint, the patient is on IV Cardizem at this time. I will restart on her beta judy. I see no contraindication to her surgical intervention. She has no history of recent congestive heart failure or coronary artery disease and underwent her most recent surgery. Depending on her progress, further recommendation will be made. Thank you for this consult. We will follow with you. MMODL / IJN: [id number] /
[2020-06-28] MEDS: LACTOBACILLUS ACIDOPH & BULGAR 1 EACH PACKET PO SCH (17:32)
[2020-06-28] MEDS ORDERED: NALOXONE 0.4 MG/ML 1 ML VIAL IVP STA (17:38)
[2020-06-28] MEDS ORDERED: NALOXONE 0.4 MG/ML 1 ML VIAL IVP PRN (17:46)
[2020-06-28] MEDS ORDERED: NALOXONE 0.4 MG/ML 1 ML VIAL ONE (17:55)
[2020-06-28] MEDS: PIPERACILLIN-TAZOBACTAM 3.375 GM in SODIUM CHLORIDE 0.9% 100 ML IVPB SCH (18:44)
[2020-06-28] MEDS: SODIUM CHLORIDE 0.9% 1,000 ML IV SCH (18:44)
[2020-06-28] MEDS ORDERED: FERROUS SULFATE 325 MG TAB PO SCH (21:00)
[2020-06-28 21:10] LABS: Glucose,Whole Blood 185 mg/dL (75-99)
[2020-06-28] MEDS: MULTIVITAMINS, THERA 1 EACH TAB PO SCH (21:47)
[2020-06-28] MEDS: PREGABALIN 100 MG CAP PO SCH (21:47)
[2020-06-28 23:30] LABS: Glucose,Whole Blood 190 mg/dL (75-99)
--- NOTE | 2020-06-28 23:30 | P.CONS ---
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 in this patient recently did have a extensive surgery for her colovesical fistula patient subsequently was transferred to [facility] for rehabilitation patient after stabilization discharged home and the patient reported he recently seemed to have some problem with the high potassium with the patient diuretics" has been adjusted by her primary care physician patient has been feeling weak and did have a fall with subsequent pain to the left hip area for the patient has been brought into the [facility] ER for further evaluation, patient also recently did have a urine culture done on June 25 which was positive for enterococcus patient data VRE patient has been started on Zosyn and Zyvox by the admitting service , patient at time of evaluation is sleepy lethargic after receiving some pain medication and was unable to provide any history most information was obtained from the family at the bedside, patient was afebrile on admission however she did spike a fever to 124 this evening and did have elevated white count 13,000 with a positive UA chest x-ray with mild pleural reaction at the left lung base and improved compared to exam Review of Systems Positive points has been mentioned in HPI complete review could not be obtained because of his underlying mental status Past Medical History Past Medical History: Asthma, Fibromyalgia, Hypertension, Osteoarthritis (OA), Rheumatoid Arthritis (RA), Sleep Apnea/CPAP/BIPAP, Thyroid Disorder Additional Past Medical History / Comment(s): Obstructive sleep apnea, mild intermittent bronchial asthma, chronic atrial fibrillation, ALLERGIC rhinitis, diabetes mellitus, hypertension, chronic kidney disease, obesity, history of left tibial plateau fracture, inflammatory bowel disease, post polio syndrome, hypertension, osteoarthritis, fibromyalgia, hypothyroidism, 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 "Dr. Abdi Riggs fixed a hole in my heart". Cardioversion. L3-4 lumber laminectomy. per pt she is to have a bowel resection on 8/26/20 Past Anesthesia/Blood Transfusion Reactions: Motion Sickness, Postoperative Nausea & Vomiting (PONV) Additional Past Anesthesia/Blood Transfusion Reaction / Comm: has letter from "lindsay packer dr with anesthesia recommendations" pt to bring with her. "takes long time to come out of anesthesia" Past Psychological History: Depression Smoking Status: Never smoker, Second hand smoke exposure Past Alcohol Use History: Occasional Past Drug Use History: None Reported - Past Family History Father Family Medical History: Myocardial Infarction ([place]) Mother Family Medical History: Cancer Additional Family Medical History / Comment(s): Suspected. Son Family Medical History: Diabetes Mellitus Medications and Allergies Home Medications Medication Instructions Recorded Confirmed Type Levothyroxine Sodium [Synthroid] 88 mcg PO DAILY 04/08/14 06/27/20 History Mesalamine [Lialda] 1.2 gm PO BID 04/08/14 06/27/20 History Acetaminophen [Tylenol Extra 500 mg PO DAILY PRN 08/01/18 06/27/20 History Strength] allopurinoL [Zyloprim] 100 mg PO TID 08/01/18 06/27/20 History Diphenox-Atrop 2.5-0.025 mg 2 tab PO TID-W/MEALS PRN 11/08/19 06/27/20 History [Lomotil] Ferrous Sulfate [Iron (65 MG 325 mg PO HS 11/08/19 06/27/20 History Elemental)] Fluticasone Nasal [place] [Flonase 2 spr EA NOSTRIL DAILY PRN 11/08/19 06/27/20 History Nasal [place]] Multivitamins, Thera [Multivitamin 1 tab PO HS 04/28/20 06/27/20 History (formulary)] Hydrocortisone [Cortef] 10 mg PO BID 30 Days #60 tab 05/05/20 06/27/20 Rx Folic Acid 1 mg PO DAILY@1200 tab 05/28/20 06/27/20 Rx Metoprolol Tartrate [Lopressor] 25 mg PO TID tab 05/28/20 06/27/20 Rx Pantoprazole [Protonix] 40 mg PO AC-BRKFST tablet. 05/28/20 06/27/20 Rx Pregabalin [Lyrica] 200 mg PO BID #10 cap 05/28/20 06/27/20 Rx Thiamine [Vitamin B-1] 100 mg PO DAILY@1200 tab 05/28/20 06/27/20 Rx Doxycycline Hyclate 100 mg PO BID 06/27/20 06/28/20 History L.acidoph,Paracasei, B.lactis 1 tab PO DAILY@1700 06/27/20 06/27/20 History [Probiotic] Warfarin [Coumadin] 2 mg PO DAILY@1700 06/27/20 06/27/20 History Allergies Allergy/AdvReac Type Severity Reaction Status Date / Time nitrofurantoin Allergy Severe Rash/Hives Verified 05/11/20 15:48 [From Macrobid] nitrofurantoin Allergy Severe Rash/Hives Verified 05/11/20 15:48 macrocrystalline [From Macrobid] sulfamethoxazole Allergy Severe Rash/Hives Verified 05/11/20 15:48 [From Bactrim] trimethoprim [From Bactrim] Allergy Severe Rash/Hives Verified 05/11/20 15:48 hydromorphone HCl AdvReac Severe Nausea & Verified 05/11/20 15:48 [From Dilaudid] Vomiting Physical Exam Vitals: Vital Signs Temp Pulse Pulse Resp BP BP Pulse Ox 06/28/20 19:26 99.4 F 06/28/20 18:16 102.3 F H 120 H 06/28/20 18:02 102.3 F H 120 H 24 151/89 96 06/28/20 17:55 6 L 06/28/20 16:00 150 H 10 L 06/28/20 15:29 150 H 111/59 06/28/20 14:24 99.3 F 167 H 20 109/78 06/28/20 12:51 117 H 18 118/67 98 06/28/20 12:41 133 H 06/28/20 12:30 127 H 06/28/20 12:25 97.8 F 104 H 18 111/62 100 06/28/20 09:32 97.7 F 98 16 107/64 100 06/28/20 08:51 93 16 107/64 98 06/28/20 07:10 96 18 105/70 97 06/28/20 06:00 95 16 100/68 98 06/28/20 03:00 98.9 F 92 16 104/81 97 06/28/20 00:00 94 16 118/75 96 Intake and Output 06/28/20 06/28/20 06/28/20 06:59 14:59 22:59 Intake Total 300 Balance 300 Intake: Intake, IV Titration 300 Amount Sodium Chloride 0.9% 1, 300 000 ml @ 999 mls/hr IV . Q1H1M [facility] Rx#:[id number] Oral 0 Other: Voiding Method Indwelling Catheter Weight 83.007 kg GENERAL DESCRIPTION: An 78 female lying in bed, no distress. No tachypnea or accessory muscle of respiration use. HEENT: Shows Pallor , no scleral icterus. Oral mucous membrane is dry. No pharyngeal erythema or thrush NECK: Trachea central, no thyromegaly. LUNGS: Unlabored breathing. Clear to auscultation anteriorly. No wheeze or crackle. HEART: S1, S2, regular rate and rhythm. No loud murmur ABDOMEN: Soft, no tenderness , guarding or rigidity, no organomegaly EXTREMITIES: No edema of feet. SKIN: No rash, no masses palpable. Sleepy lethargic and orientation could not be determined Results CBC & Chem 7: 06/27/20 22:05 06/27/20 22:05 Labs: Abnormal Lab Results - Last 24 Hours (Table) 06/27/20 06/27/20 06/27/20 Range/Units 22:05 22:05 22:05 WBC 13.0 H (3.8-10.6) k/uL RBC 3.59 L (3.80-5.40) m/uL Hgb 11.2 L (11.4-16.0) gm/dL RDW 15.7 H (11.5-15.5) % Neutrophils # 10.9 H (1.3-7.7) k/uL PT 18.4 H (9.0-12.0) sec INR 1.9 H (<1.2) APTT 33.5 H (22.0-30.0) sec Sodium 133 L (137-145) mmol/L Chloride 113 H (98-107) mmol/L Carbon Dioxide 13 L (22-30) mmol/L BUN 37 H (7-17) mg/dL Creatinine 2.16 H (0.52-1.04) mg/dL Glucose 118 H (74-99) mg/dL POC Glucose (mg/dL) (75-99) mg/dL Plasma Lactic Acid Gabe (0.7-2.0) mmol/L Creatine Kinase 28 L (30-135) U/L Total Protein 5.3 L (6.3-8.2) g/dL Albumin 2.9 L (3.5-5.0) g/dL TSH (0.465-4.680) mIU/L Urine Appearance (Clear) Urine Protein (Negative) Urine Blood (Negative) Ur Leukocyte Esterase (Negative) Urine RBC (0-5) /hpf Urine WBC (0-5) /hpf Urine WBC Clumps (None) /hpf Ur Squamous Epith Cells (0-4) /hpf Urine Bacteria (None) /hpf 06/27/20 06/27/20 06/28/20 Range/Units 22:05 22:05 04:15 WBC (3.8-10.6) k/uL RBC (3.80-5.40) m/uL Hgb (11.4-16.0) gm/dL RDW (11.5-15.5) % Neutrophils # (1.3-7.7) k/uL PT (9.0-12.0) sec INR (<1.2) APTT (22.0-30.0) sec Sodium (137-145) mmol/L Chloride (98-107) mmol/L Carbon Dioxide (22-30) mmol/L BUN (7-17) mg/dL Creatinine (0.52-1.04) mg/dL Glucose (74-99) mg/dL POC Glucose (mg/dL) (75-99) mg/dL Plasma Lactic Acid Gabe 0.6 L (0.7-2.0) mmol/L Creatine Kinase (30-135) U/L Total Protein (6.3-8.2) g/dL Albumin (3.5-5.0) g/dL TSH 0.224 L (0.465-4.680) mIU/L Urine Appearance Turbid H (Clear) Urine Protein 2+ H (Negative) Urine Blood Small H (Negative) Ur Leukocyte Esterase Large H (Negative) Urine RBC 41 H (0-5) /hpf Urine WBC >182 H (0-5) /hpf Urine WBC Clumps Many H (None) /hpf Ur Squamous Epith Cells 6 H (0-4) /hpf Urine Bacteria Moderate H (None) /hpf 10/03/20 10/03/20 Range/Units 16:40 21:08 WBC (3.8-10.6) k/uL RBC (3.80-5.40) m/uL Hgb (11.4-16.0) gm/dL RDW (11.5-15.5) % Neutrophils # (1.3-7.7) k/uL PT (9.0-12.0) sec INR (<1.2) APTT (22.0-30.0) sec Sodium (137-145) mmol/L Chloride (98-107) mmol/L Carbon Dioxide (22-30) mmol/L BUN (7-17) mg/dL Creatinine (0.52-1.04) mg/dL Glucose (74-99) mg/dL POC Glucose (mg/dL) 153 H 185 H (75-99) mg/dL Plasma Lactic Acid Gabe (0.7-2.0) mmol/L Creatine Kinase (30-135) U/L Total Protein (6.3-8.2) g/dL Albumin (3.5-5.0) g/dL TSH (0.465-4.680) mIU/L Urine Appearance (Clear) Urine Protein (Negative) Urine Blood (Negative) Ur Leukocyte Esterase (Negative) Urine RBC (0-5) /hpf Urine WBC (0-5) /hpf Urine WBC Clumps (None) /hpf Ur Squamous Epith Cells (0-4) /hpf Urine Bacteria (None) /hpf Microbiology - Last 24 Hours (Table) 06/28/20 04:15 Urine Culture - Preliminary Urine,Voided Assessment and Plan Assessment: 1- patient with sepsis in this patient who did have a fever tachycardia and elevated white count source is likely complicated urinary tract infection in this patient did have a history of recurrent UTI secondary to colovesical sure status post recent surgical repair of the same now admitted to the hospital with a fall and fracture chest x-ray has been negative for any pneumonia 2-Patient with multiple antibiotic ALLERGIES that would limit the number of antibiotic safe to use (1) Sepsis Current Visit: Yes Status: Acute Code(s): A41.9 - SEPSIS, UNSPECIFIED ORGANISM SNOMED Code(s): 08444469 (2) UTI (urinary tract infection) Current Visit: Yes Status: Acute Code(s): N39.0 - URINARY TRACT INFECTION, SITE NOT SPECIFIED SNOMED Code(s): 63564589 Plan: 1- patient has been empirically started on Zosyn and Zyvox to continue while waiting for the cultures to finalize 2-gentle IV fluid We will follow on clinical condition and cultures to further adjust medication if needed Thank you for this consultation will follow this patient with you Time with Patient: Greater than 30
[2020-06-29] MEDS: MORPHINE SULFATE 4 MG/ML SYRINGE IV PRN ×3 (04:05→21:41)
[2020-06-29] MEDS: PIPERACILLIN-TAZOBACTAM 3.375 GM in SODIUM CHLORIDE 0.9% 100 ML IVPB SCH ×4 (04:13→21:41)
[2020-06-29 06:25] LABS: Glucose,Whole Blood 180 mg/dL (75-99)
[2020-06-29] MEDS: INSULIN ASPART (NovoLOG) 100 UNIT/ML VIAL SQ SCH ×4 (06:52→21:40)
[2020-06-29] MEDS: LEVOTHYROXINE 88 MCG TAB PO SCH (06:53)
[2020-06-29] MEDS: BALSALAZIDE DISODIUM 750 MG CAPSULE PO SCH ×3 (06:53→17:10)
[2020-06-29] MEDS ORDERED: PANTOPRAZOLE 40 MG TABLET PO SCH (07:30)
[2020-06-29 07:56] LABS: Basophils % (A) 0 %; Eosinophils % (A) 0 %; HCT 31.9 % (34.0-46.0); HGB 9.8 gm/dL (11.4-16.0); Hypochromasia Marked; Lymphocytes # (A) 0.8 k/uL (1.0-4.8); Lymphocytes % (A) 9 %; MCH 30.6 pg (25.0-35.0); MCHC 30.7 g/dL (31.0-37.0); MCV 99.6 fL (80.0-100.0); Macrocytosis Slight; Mean Platelet Volume 9.7; Monocytes # (A) 0.2 k/uL (0-1.0); Monocytes % (A) 3 %; Neutrophils % (A) 88 %; Platelet Count 179 k/uL (150-450); RDW 15.8 % (11.5-15.5); WBC 9.1 k/uL (3.8-10.6)
[2020-06-29 08:01] LABS: Calcium 8.2 mg/dL (8.4-10.2); Potassium 4.2 mmol/L (3.5-5.1)
[2020-06-29] MEDS: METOPROLOL TARTRATE 25 MG TAB PO SCH ×3 (09:09→21:40)
[2020-06-29] MEDS: PREGABALIN 100 MG CAP PO SCH ×2 (09:09→21:40)
[2020-06-29] MEDS: allopurinoL 100 MG TAB PO SCH ×3 (09:09→21:40)
[2020-06-29] MEDS: HYDROcodone/APAP 5-325MG 1 EACH TAB PO PRN ×2 (09:13→18:38)
[2020-06-29] MEDS: HYDROCORTISONE SUCCINATE 100 MG/2 ML VIAL IV SCH ×3 (09:20→23:20)
[2020-06-29] MEDS: SODIUM CHLORIDE 0.9% 1,000 ML IV SCH (09:26)
--- NOTE | 2020-06-29 09:48 | P.PN ---
Progress Note - Text Progress Note Date: 06/29/20 Patient is seen and examined at bedside. She complains of left hip pain whenever she tries to move. She denies any chest pain or shortness of breath. She did spike a fever last night. Currently she is afebrile, but she had spiked a fever last night 102.3 Her chest is good excursion deep inspection expiration abdomen soft. Her urinary catheters intact and this white cloudy fluid At her leg she has sustained dorsal flexion plantarflexion and EHL intact. Her calves and thighs are soft. She has severe pain at her left hip with any sort of motion on the left. Assessment and plan Acute left hip femoral neck fracture status post fall at home Chronic urinary tract issues with infection Elevated INR, Coumadin currently held The patient is not yet cleared from a medical standpoint for surgical intervention for her left hip. She will require a left hip hemiarthroplasty once she is medically cleared. We are still working on infectious issues as she did have a fever last night and chronic urinary tract issues. Urology, medicine, and infectious disease are all trying to medically optimize the patient for clearance when she is able. We tentatively have surgery planned for tomorrow if the patient is able to be medically cleared. The patient's INR was elevated at the time of admit due to her Coumadin use. The patient has been deemed acceptable medical risk her surgery from cardiology standpoint but will still need her INR to further normalize before surgery. We will tentatively make patient nothing by mouth after midnight and continue to follow closely. The patient's daughter was present at bedside and had numerous questions which I tried to answer the best my ability. They seem to understand the issues involved and plan to proceed with surgery once patient is medically stabilized.
--- NOTE | 2020-06-29 10:16 | PN ---
PROGRESS NOTE Mrs. Colin is a 74-year-old female with history of chronic persistent atrial fibrillation who presented after a fall and fracture of her left hip. She recently underwent an extensive surgery for colovesical fistula. She is more awake and alert today. She denies any chest pain. She denies any dizziness or palpitations. She continues to have discomfort in the left hip. Her ventricular response is under better control. She denies any nausea or vomiting. She is off her IV Cardizem and continues otherwise to be on her metoprolol 25 mg 3 times a day. PHYSICAL EXAMINATION: Blood pressure 102/60 with a heart rate in the 80s. LUNGS: Clear. HEART irregularly irregular, S1, S2. No S3. No rub. ABDOMEN: Soft. Nontender. EXTREMITIES: No significant edema. LAB DATA: Hemoglobin 9.8, BUN and creatinine 20 and 2.06 with some improvement compared to yesterday. IMPRESSION: 1. Status post fall and fracture of the left hip scheduled for surgical intervention tomorrow. 2. Chronic persistent atrial fibrillation, rate controlled. Her Coumadin is on hold. 3. Status post recent colovesical fistula repair. 4. History of urinary tract infection. 5. Chronic kidney disease. RECOMMENDATIONS: From the cardiac standpoint, she is stable. We will follow her heart rate and adjust her beta judy accordingly. We will monitor her INR and depending on her progress, further recommendations will be made. MMODL / IJN: [id number] /
[2020-06-29 10:17] LABS: INR 2.4 (<1.2); Prothrombin Time 23.5 sec (9.0-12.0)
--- NOTE | 2020-06-29 10:48 | P.NPCON ---
History of Present Illness - Reason for Consult acute renal failure, chronic renal failure - History of Present Illness reason for consultation: Acute kidney injury on chronic kidney disease History of present illness: Patient is a 74-year-old female seen in renal consultation for acute kidney injury on chronic kidney disease. Patient has chronic kidney disease stage III with baseline creatinine near 1.5. Creatinine was 2.16 on admission and is stable at 2.06 today. She is maintained on normal saline at 75 mL an hour. currently has a Peoples catheter. Nonoliguric. Oral intake fair. No vomiting or diarrhea. patient presented to the hospital after she sustained a fall. Patient states she wasn't sure how to maneuver her walker and subsequently fell. She denies any dizziness or syncopal episodes. She is noted to have acute left femur fracture. orthopedic surgery is following. she is currently on IV antibiotics for UTI. she was also noted to be in A. fib with RVR and is now off Cardizem drip. she is maintained on oral Lopressor. heart rate now controlled. Blood pressure on the lower side. she denies use of nonsteroidals. Denies family history of renal disease. She's been having loose bowel movements. Vital signs are stable. General: The patient appeared well nourished and normally developed. HEENT: Head exam is unremarkable. Neck is without jugular venous distension. LUNGS: Breath sounds decreased. HEART: Rate and Rhythm are regular. ABDOMEN: soft, nontender. EXTREMITITES: No clubbing, cyanosis, or edema. 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 "Dr. Abdi Riggs fixed a hole in my heart". Cardioversion. L3-4 lumber laminectomy. per pt she is to have a bowel resection on 05/21/20 Past Anesthesia/Blood Transfusion Reactions: Motion Sickness, Postoperative Nausea & Vomiting (PONV) Additional Past Anesthesia/Blood Transfusion Reaction / Comment(s): has letter from "lindsay packer dr with anesthesia recommendations" pt to bring with her. "takes long time to come out of anesthesia" Past Psychological History: Depression Smoking Status: Never smoker, Second hand smoke exposure Past Alcohol Use History: Occasional Past Drug Use History: None Reported - Past Family History Father Family Medical History: Myocardial Infarction ([place]) Mother Family Medical History: Cancer Additional Family Medical History / Comment(s): Suspected. Son Family Medical History: Diabetes Mellitus Medications and Allergies Home Medications Medication Instructions Recorded Confirmed Type Levothyroxine Sodium [Synthroid] 88 mcg PO DAILY 04/08/14 06/27/20 History Mesalamine [Lialda] 1.2 gm PO BID 04/08/14 06/27/20 History Acetaminophen [Tylenol Extra 500 mg PO DAILY PRN 08/01/18 06/27/20 History Strength] allopurinoL [Zyloprim] 100 mg PO TID 08/01/18 06/27/20 History Diphenox-Atrop 2.5-0.025 mg 2 tab PO TID-W/MEALS PRN 11/08/19 06/27/20 History [Lomotil] Ferrous Sulfate [Iron (65 MG 325 mg PO HS 11/08/19 06/27/20 History Elemental)] Fluticasone Nasal [place] [Flonase 2 spr EA NOSTRIL DAILY PRN 11/08/19 06/27/20 History Nasal [place]] Multivitamins, Thera [Multivitamin 1 tab PO HS 04/28/20 06/27/20 History (formulary)] Hydrocortisone [Cortef] 10 mg PO BID 30 Days #60 tab 05/05/20 06/27/20 Rx Folic Acid 1 mg PO DAILY@1200 tab 05/28/20 06/27/20 Rx Metoprolol Tartrate [Lopressor] 25 mg PO TID tab 05/28/20 06/27/20 Rx Pantoprazole [Protonix] 40 mg PO AC-BRKFST tablet. 05/28/20 06/27/20 Rx Pregabalin [Lyrica] 200 mg PO BID #10 cap 05/28/20 06/27/20 Rx Thiamine [Vitamin B-1] 100 mg PO DAILY@1200 tab 05/28/20 06/27/20 Rx Doxycycline Hyclate 100 mg PO BID 06/27/20 06/28/20 History L.acidoph,Paracasei, B.lactis 1 tab PO DAILY@1700 06/27/20 06/27/20 History [Probiotic] Warfarin [Coumadin] 2 mg PO DAILY@1700 06/27/20 06/27/20 History Allergies Allergy/AdvReac Type Severity Reaction Status Date / Time nitrofurantoin Allergy Severe Rash/Hives Verified 05/11/20 15:48 [From Macrobid] nitrofurantoin Allergy Severe Rash/Hives Verified 05/11/20 15:48 macrocrystalline [From Macrobid] sulfamethoxazole Allergy Severe Rash/Hives Verified 05/11/20 15:48 [From Bactrim] trimethoprim [From Bactrim] Allergy Severe Rash/Hives Verified 05/11/20 15:48 hydromorphone HCl AdvReac Severe Nausea & Verified 05/11/20 15:48 [From Dilaudid] Vomiting Physical Exam Vitals: Vital Signs Temp Pulse Pulse Resp BP BP Pulse Ox 06/29/20 08:00 97.7 F 80 16 102/65 06/29/20 04:00 98.0 F 84 18 105/64 97 06/29/20 00:00 98.0 F 89 17 88/43 96 06/28/20 19:26 99.4 F 06/28/20 18:16 102.3 F H 120 H 06/28/20 18:02 102.3 F H 120 H 24 151/89 96 06/28/20 17:55 6 L 06/28/20 16:00 150 H 10 L 06/28/20 15:29 150 H 111/59 06/28/20 14:24 99.3 F 167 H 20 109/78 06/28/20 12:51 117 H 18 118/67 98 06/28/20 12:41 133 H 06/28/20 12:30 127 H 06/28/20 12:25 97.8 F 104 H 18 111/62 100 Intake and Output 06/28/20 06/29/20 06/29/20 22:59 06:59 14:59 Intake Total 925 Output Total 350 Balance 575 Intake: Intake, IV Titration 925 Amount Linezolid 600 mg In 300 Dextrose/Water 1 300ml. bag @ 150 mls/hr IVPB Q12H [facility] Rx#:[id number] Piperacillin-Tazobactam 3 100 .375 gm In Sodium Chloride 0.9% 100 ml @ 25 mls/hr IVPB Q8HR [facility] Rx# :[id number] Sodium Chloride 0.9% 1, 225 000 ml @ 75 mls/hr IV . [id number] [facility] Rx#:[id number] Sodium Chloride 0.9% 1, 300 000 ml @ 999 mls/hr IV . Q1H1M [facility] Rx#:[id number] Oral 0 Output: Urine 350 Other: Voiding Method Indwelling Catheter Indwelling Catheter Weight 83.007 kg 84.5 kg Results - Lab Results Most recent lab results Calcium 8.2 mg/dL (8.4-10.2) L 06/29/20 07:14 Phosphorus 3.8 mg/dL (2.5-4.5) 06/27/20 22:05 Magnesium 1.9 mg/dL (1.6-2.3) 06/27/20 22:05 06/29/20 07:14 06/29/20 07:14 Assessment and Plan Plan: assessment: 1. Acute kidney injury secondary to ATN secondary to infection and hemodynamic instability. Creatinine was 2.16 on admission and is 2.06 today. 2. Status post fall with acute left femur fracture. Orthopedic surgery following. 3. Chronic kidney disease stage III with baseline creatinine near 1.5. 4. A. fib with RVR status post Cardizem drip. 5. Metabolic acidosis secondary to acute kidney injury and GI losses. 6. UTI maintained on antibiotics. Infectious disease following. 7. Chronic diastolic CHF Plan: Discontinue normal saline. Start isotonic bicarbonate drip to be run at 50 mL an hour. Avoid nephrotoxins. Continue to monitor renal function and urine output. Thank you for the consultation. I will continue to follow the patient with you during her hospital stay.
[2020-06-29] MEDS ORDERED: PHYTONADIONE ORAL 5 MG/5 ML ORAL.SYRG PO STA (11:53)
[2020-06-29 12:11] LABS: Glucose,Whole Blood 144 mg/dL (75-99)
[2020-06-29] MEDS: THIAMINE 100 MG TAB PO SCH (12:33)
[2020-06-29] MEDS: FOLIC ACID 1 MG TAB PO SCH (12:34)
[2020-06-29] MEDS: DEXTROSE 5% IN WATER 1,000 ML with SODIUM BICARB (1 MEQ/ML) 150 ML IV SCH (12:46)
[2020-06-29] MEDS: PANTOPRAZOLE 40 MG/10 ML VIAL IVP SCH ×2 (12:53→21:40)
[2020-06-29] MEDS: LINEZOLID 600 MG in DEXTROSE/WATER 1 300ML.BAG IVPB SCH ×2 (13:40→23:20)
[2020-06-29 15:00] LABS: Appearance,Urine Cloudy (Clear); Bilirubin,Urine Negative (Negative); Blood,Urine Small (Negative); Color,Urine Yellow; Glucose,Urine (UA) Negative (Negative); Ketones,Urine Negative (Negative); Leukocyte Esterase,Urine Moderate (Negative); Nitrite,Urine Negative (Negative); PH, Urine 5.5 (5.0-8.0); Protein,Urine 1+ (Negative); RBC,Urine <1 /hpf (0-5); Specific Gravity,Urine 1.011 (1.001-1.035); Squamous Epithelial Cell,Urine 2 /hpf (0-4); Urobilinogen,Urine <2.0 mg/dL (<2.0); WBC,Urine 12 /hpf (0-5)
[2020-06-29] MEDS: LACTOBACILLUS ACIDOPH & BULGAR 1 EACH PACKET PO SCH (17:10)
[2020-06-29 17:24] LABS: Glucose,Whole Blood 217 mg/dL (75-99)
[2020-06-29] MEDS: IOPAMIDOL CONTRAST (ORAL USE) VIAL PO PRN ×2 (18:34→19:40)
[2020-06-29 21:08] LABS: Glucose,Whole Blood 141 mg/dL (75-99)
[2020-06-29] MEDS: MULTIVITAMINS, THERA 1 EACH TAB PO SCH (21:40)
--- NOTE | 2020-06-30 00:22 | CT ---
EXAMINATION TYPE: CT ChestAbdPelvis wo con DATE OF EXAM: 06/29/2020 COMPARISON: None CT abdomen pelvis 05/12/2020 HISTORY: Prior A/P on PACS. Left hip pain. DLP: CT DLP: 1057.8 mGycm Automated exposure control for dose reduction was used. Images were obtained from the thoracic inlet to the floor the pelvis with oral contrast. FINDINGS: There are small bilateral pleural effusions. There is coronary artery calcification. There is mild jimenes bsegmental atelectasis at the lung bases. There is no mediastinal adenopathy. There are no hilar mass es. Thoracic aorta shows mild atheromatous change. There is no aneurysm. Liver shows no focal defect. Spleen is intact. There is small hiatal hernia. There is no pancreatic m ass. There is pancreatic atrophy. There are clips from cholecystectomy. The bile ducts are not dilate d. There is some fat stranding at the umbilicus consistent with recent surgery. There is no adrenal mass . Kidneys show no hydronephrosis. There is no evidence of a renal mass. Ureters are not dilated. Ther e is no retroperitoneal adenopathy. There is Peoples catheter in the urinary bladder. There is no evide nce of free air. There is oral contrast in the small bowel. There is no sign of a bowel obstruction. There is minimal stranding in the pelvis consistent with recent surgery. There is no drainable fluid collection. No evidence of an abscess. There is surgery with clips at the rectosigmoid junction. There is subcapital impacted fracture left femur. The fracture is new compared to old exam. The bony pelvis is intact. The thoracic and lumbar spine show osteopenia. There is 25% wedging of T5 vertebra. There is 15% wedging of T3 vertebra. Sternum is intact. The ribs appear intact. IMPRESSION: There are new small bilateral pleural effusions and basilar atelectasis compared to old exam. Changes in the abdomen consistent with recent abdominal surgery. No bowel obstruction. No evidence of an abs cess. There is subcapital impacted fracture left femur. This also demonstrated on recent hip x-ray.
--- NOTE | 2020-06-30 00:35 | PN ---
PROGRESS NOTE DATE OF SERVICE: 06/29/2020 I am covering for Dr. To. This 74-year-old woman who was admitted after a fall and hip fracture has multiple other medical issues including atrial fibrillation with fast ventricular rate, possibly UTI with VRE, colovesical fistula and recent low anterior resection and removal of intraperitoneal mesh for incisional hernia and as well as a colovesical fistula and adhesions. The patient is closely monitored at this time. No chest pain. No palpitations. No fever. Patient on broad spectrum IV antibiotics. PAST MEDICAL HISTORY: Reviewed. REVIEW OF SYSTEMS: CARDIOVASCULAR SYSTEM: No angina. RESPIRATORY SYSTEM: As mentioned earlier.. GI: As mentioned earlier. : No dysuria. NERVOUS SYSTEM: No numbness or weakness. CURRENT MEDICATIONS: Current medications are reviewed and include: Tylenol, [place], Zyloprim, Xanax, Colazal, Flonase, folic acid, Solu-Cortef, Dilaudid, NovoLog, Lactinex, linezolid, multivitamins, Protonix, Zosyn. PHYSICAL EXAMINATION: The patient is alert and oriented x3. Pulse is 63, blood pressure 126/76, respiration 17, temperature 101 degrees, pulse ox 97% on 2 L. HEENT: Conjunctivae normal. NECK: No jugular venous distention. CARDIOVASCULAR: S1, S2 muffled. RESPIRATORY: Breath sounds diminished at the bases. A few scattered rhonchi. No crackles. ABDOMEN: Soft, obese, nontender. No mass palpable. LEGS: Status post fracture. NERVOUS SYSTEM: No focal deficits. LABS: WBC 9.1, hemoglobin 9.8. INR is 2.4. Creatinine is 2.06. UA noted. ASSESSMENT: 1. Status post fall and left hip fracture. 2. Atrial fibrillation with fast ventricular rate. 3. Urinary tract infection with VRE with possible sepsis. 4. Recent sigmoid colectomy and low anterior resection and lysis of adhesions for colovesical fistula and incisional hernia. 5. Increased WBC. 6. Anemia, normocytic. 7. Elevated PT, INR. 8. Mild acidosis. 9. Hyponatremia. 10.Low TSH. 11.History of asthma. 12.History of fibromyalgia. 13.Hypertension. 14.History of degenerative joint disease. 15.History of rheumatoid arthritis. 16.History of obstructive sleep apnea. 17.History of diabetes mellitus type 2. 18.History of tibial plateau fracture. 19.History of inflammatory bowel disease. 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 21.History of hypothyroidism. 22.History of cholecystectomy. 23.History of cardiac catheterization. 24.History of degenerative joint disease, L3-4, lumbar laminectomy. 25.History of depression. RECOMMENDATIONS AND DISCUSSION: This is a 74-year-old woman who presented with multiple complex medical issues, we will monitor the patient closely, continue the current medications, continue symptomatic treatment. Otherwise at this time I would recommend continue the antibiotics and vitamin K 2.5 mg today and atrial fibrillation rate is current controlled. Infectious disease evaluation. Once the patient is cleared by consultants patient will be cleared for Surgery. Otherwise, we will continue to monitor. Urology consultation was also sought. I would also recommend a CT scan of the chest, abdomen and pelvis also. MMODL / IJN: [id number] /
[2020-06-30] MEDS: MORPHINE SULFATE 4 MG/ML SYRINGE IV PRN (04:22)
[2020-06-30] MEDS: PIPERACILLIN-TAZOBACTAM 3.375 GM in SODIUM CHLORIDE 0.9% 100 ML IVPB SCH ×3 (04:39→21:11)
--- NOTE | 2020-06-30 06:12 | PN ---
PROGRESS NOTE DATE OF SERVICE: 06/29/2020 REASON FOR FOLLOW UP: Resistant urinary tract infection. INTERVAL HISTORY: Patient did spike a fever last night and this morning of 101 degrees Fahrenheit. The patient was afebrile afterwards. The patient is more awake alert. She is breathing comfortably. Complaining of pain to the left hip area. No chest pain. No shortness of breath or cough. No abdominal pain or diarrhea. PHYSICAL EXAMINATION: Blood pressure 103/50 with a pulse of 68, temperature 97.4. She is 99% on 2 L nasal cannula. General description is an elderly female lying in bed in no distress. Respiratory system: Unlabored breathing, clear to auscultation anteriorly. Heart S1, S2. Regular rate and rhythm. Abdomen is soft, mildly tender left lower quadrant area. Extremities with no edema of the feet. LABS: Hemoglobin 9.1, white count 9.1, creatinine is 2.26. Urine is positive. DIAGNOSTIC IMPRESSION AND PLAN: Patient with a fever with concern for a complicated urinary tract infection. Urine showing Gram-negative as well as Enterococcus. The patient is currently covered with the Zosyn and that is to continue while waiting for the culture to finalize. Family at the bedside. Questions were answered. MMODL / IJN: [id number] /
[2020-06-30] MEDS: LEVOTHYROXINE 88 MCG TAB PO SCH (06:22)
[2020-06-30] MEDS: BALSALAZIDE DISODIUM 750 MG CAPSULE PO SCH ×3 (06:22→17:30)
[2020-06-30 06:38] LABS: Glucose,Whole Blood 193 mg/dL (75-99)
[2020-06-30] MEDS: INSULIN ASPART (NovoLOG) 100 UNIT/ML VIAL SQ SCH ×4 (06:46→21:11)
[2020-06-30] MEDS: HYDROcodone/APAP 5-325MG 1 EACH TAB PO PRN ×2 (08:08→17:28)
[2020-06-30] MEDS: METOPROLOL TARTRATE 25 MG TAB PO SCH ×3 (08:08→21:10)
[2020-06-30] MEDS: allopurinoL 100 MG TAB PO SCH ×3 (08:09→21:10)
[2020-06-30] MEDS: HYDROCORTISONE SUCCINATE 100 MG/2 ML VIAL IV SCH ×3 (08:09→23:12)
[2020-06-30] MEDS: PANTOPRAZOLE 40 MG/10 ML VIAL IVP SCH ×2 (08:09→21:10)
[2020-06-30] MEDS: PREGABALIN 100 MG CAP PO SCH ×2 (08:09→21:10)
[2020-06-30 08:10] LABS: Basophils % (A) 0 %; Eosinophils % (A) 0 %; HCT 32.6 % (34.0-46.0); HGB 9.8 gm/dL (11.4-16.0); Hypochromasia Marked; Lymphocytes # (A) 0.7 k/uL (1.0-4.8); Lymphocytes % (A) 7 %; MCH 30.4 pg (25.0-35.0); MCHC 30.1 g/dL (31.0-37.0); MCV 100.9 fL (80.0-100.0); Macrocytosis Slight; Mean Platelet Volume 9.4; Monocytes # (A) 0.2 k/uL (0-1.0); Monocytes % (A) 3 %; Neutrophils % (A) 89 %; Platelet Count 172 k/uL (150-450); Poikilocytosis Slight; RBC 3.23 m/uL (3.80-5.40); RDW 15.8 % (11.5-15.5)
[2020-06-30 08:15] LABS: INR 1.6 (<1.2); Prothrombin Time 16.1 sec (9.0-12.0)
[2020-06-30 08:23] LABS: Calcium 7.3 mg/dL (8.4-10.2); Magnesium 1.5 mg/dL (1.6-2.3); Potassium 3.3 mmol/L (3.5-5.1)
--- NOTE | 2020-06-30 10:03 | P.PN ---
Subjective Progress Note Date: 06/30/20 This patient is a 74-year-old female who is being followed for a left femoral neck fracture. The patient is seen and examined bedside this morning. She has remained afebrile since Tuesday evening. Patient states she overall feels well. She states the pain in her left hip is currently well controlled. She denies chest pain, shortness of breath, nausea, vomiting, fevers, chills. Vital signs stable. Objective - Vital Signs Vital signs: Vital Signs Temp 97.5 F L 06/30/20 07:58 Pulse 101 H 06/30/20 07:58 Resp 18 06/30/20 07:58 BP 101/68 06/30/20 07:58 Pulse Ox 97 06/30/20 07:58 Intake & Output 06/29/20 06/30/20 06/30/20 18:59 06:59 18:59 Intake Total 200 Output Total 550 500 Balance -350 -500 Weight 85 kg Intake: Oral 200 Output: Urine 550 500 Other: Voiding Method Indwelling Catheter Indwelling Catheter - Exam On examination, the patient is sitting in bed in no apparent distress. She is alert and oriented 3. There is diffuse pain on palpation of the left hip. Range of motion of the left hip is not tested at this time. Patient has good strength and range of motion of the left ankle. Motor and sensory function are intact to left lower extremity. Dorsalis pedis pulse +2. Left lower extremity warm and well perfused with brisk capillary refill distally. Calves are soft and nontender to palpation bilaterally. - Labs CBC & Chem 7: 06/30/20 06:55 06/30/20 06:55 Labs: Abnormal Lab Results - Last 24 Hours (Table) 06/29/20 06/29/20 06/29/20 Range/Units 09:45 11:59 13:51 RBC (3.80-5.40) m/uL Hgb (11.4-16.0) gm/dL Hct (34.0-46.0) % MCV (80.0-100.0) fL MCHC (31.0-37.0) g/dL RDW (11.5-15.5) % Neutrophils # (1.3-7.7) k/uL Lymphocytes # (1.0-4.8) k/uL PT 23.5 H (9.0-12.0) sec INR 2.4 H (<1.2) Sodium (137-145) mmol/L Potassium (3.5-5.1) mmol/L BUN (7-17) mg/dL Creatinine (0.52-1.04) mg/dL Glucose (74-99) mg/dL POC Glucose (mg/dL) 144 H (75-99) mg/dL Calcium (8.4-10.2) mg/dL Magnesium (1.6-2.3) mg/dL Urine Appearance Cloudy H (Clear) Urine Protein 1+ H (Negative) Urine Blood Small H (Negative) Ur Leukocyte Esterase Moderate H (Negative) Urine WBC 12 H (0-5) /hpf 06/29/20 06/29/20 06/30/20 Range/Units 17:14 20:54 06:30 RBC (3.80-5.40) m/uL Hgb (11.4-16.0) gm/dL Hct (34.0-46.0) % MCV (80.0-100.0) fL MCHC (31.0-37.0) g/dL RDW (11.5-15.5) % Neutrophils # (1.3-7.7) k/uL Lymphocytes # (1.0-4.8) k/uL PT (9.0-12.0) sec INR (<1.2) Sodium (137-145) mmol/L Potassium (3.5-5.1) mmol/L BUN (7-17) mg/dL Creatinine (0.52-1.04) mg/dL Glucose (74-99) mg/dL POC Glucose (mg/dL) 217 H 141 H 193 H (75-99) mg/dL Calcium (8.4-10.2) mg/dL Magnesium (1.6-2.3) mg/dL Urine Appearance (Clear) Urine Protein (Negative) Urine Blood (Negative) Ur Leukocyte Esterase (Negative) Urine WBC (0-5) /hpf 06/30/20 06/30/20 06/30/20 Range/Units 06:55 06:55 06:55 RBC 3.23 L (3.80-5.40) m/uL Hgb 9.8 L (11.4-16.0) gm/dL Hct 32.6 L (34.0-46.0) % MCV 100.9 H (80.0-100.0) fL MCHC 30.1 L (31.0-37.0) g/dL RDW 15.8 H (11.5-15.5) % Neutrophils # 8.0 H (1.3-7.7) k/uL Lymphocytes # 0.7 L (1.0-4.8) k/uL PT 16.1 H (9.0-12.0) sec INR 1.6 H (<1.2) Sodium 131 L (137-145) mmol/L Potassium 3.3 L (3.5-5.1) mmol/L BUN 29 H (7-17) mg/dL Creatinine 1.78 H (0.52-1.04) mg/dL Glucose 370 H (74-99) mg/dL POC Glucose (mg/dL) (75-99) mg/dL Calcium 7.3 L (8.4-10.2) mg/dL Magnesium 1.5 L (1.6-2.3) mg/dL Urine Appearance (Clear) Urine Protein (Negative) Urine Blood (Negative) Ur Leukocyte Esterase (Negative) Urine WBC (0-5) /hpf Microbiology - Last 24 Hours (Table) 06/29/20 13:51 Urine Culture - Preliminary Urine,Clean Catch 06/28/20 15:51 Blood Culture - Preliminary Blood No Growth after 24 hours 06/28/20 04:15 Urine Culture - Preliminary Urine,Voided Gram Neg Bacilli Group D Enterococcus Assessment and Plan Assessment: Subcapital femoral neck fracture, left. Chronic UTI Plan: - If the patient is cleared from the multiple medical specialities following, we will plan for a left hip hemiarthroplasty this afternoon. She has been made NPO in anticipation of this. - She should remaining nonweight bearing on the left lower extremity. Bedrest. - Pain management as needed.
[2020-06-30] MEDS ORDERED: POTASSIUM CHLORIDE ER 20 MEQ TAB.ER PO STA (10:10)
--- NOTE | 2020-06-30 10:19 | P.PN ---
Subjective patient is seen in follow-up for acute kidney injury and chronic kidney disease. Patient is chronic kidney disease stage III with baseline creatinine near 1.5. Renal function better today. Nonoliguric. No vomiting or diarrhea. no chest pain or shortness of breath. Vital signs are stable. General: The patient appeared well nourished and normally developed. HEENT: Head exam is unremarkable. Neck is without jugular venous distension. LUNGS: Lungs are clear to auscultation and percussion. Breath sounds decreased. HEART: Rate and Rhythm are regular. ABDOMEN: soft, nontender. EXTREMITITES: No clubbing, cyanosis, or edema. Objective - Vital Signs Vital signs: Vital Signs Temp 97.5 F L 06/30/20 07:58 Pulse 101 H 06/30/20 07:58 Resp 18 06/30/20 07:58 BP 101/68 06/30/20 07:58 Pulse Ox 97 06/30/20 07:58 Intake & Output 06/29/20 06/30/20 06/30/20 18:59 06:59 18:59 Intake Total 200 Output Total 550 500 Balance -350 -500 Weight 85 kg Intake: Oral 200 Output: Urine 550 500 Other: Voiding Method Indwelling Catheter Indwelling Catheter - Labs CBC & Chem 7: 06/30/20 06:55 06/30/20 06:55 Labs: Abnormal Lab Results - Last 24 Hours (Table) 06/29/20 06/29/20 06/29/20 Range/Units 09:45 11:59 13:51 RBC (3.80-5.40) m/uL Hgb (11.4-16.0) gm/dL Hct (34.0-46.0) % MCV (80.0-100.0) fL MCHC (31.0-37.0) g/dL RDW (11.5-15.5) % Neutrophils # (1.3-7.7) k/uL Lymphocytes # (1.0-4.8) k/uL PT 23.5 H (9.0-12.0) sec INR 2.4 H (<1.2) Sodium (137-145) mmol/L Potassium (3.5-5.1) mmol/L BUN (7-17) mg/dL Creatinine (0.52-1.04) mg/dL Glucose (74-99) mg/dL POC Glucose (mg/dL) 144 H (75-99) mg/dL Calcium (8.4-10.2) mg/dL Magnesium (1.6-2.3) mg/dL Urine Appearance Cloudy H (Clear) Urine Protein 1+ H (Negative) Urine Blood Small H (Negative) Ur Leukocyte Esterase Moderate H (Negative) Urine WBC 12 H (0-5) /hpf 06/29/20 06/29/20 06/30/20 Range/Units 17:14 20:54 06:30 RBC (3.80-5.40) m/uL Hgb (11.4-16.0) gm/dL Hct (34.0-46.0) % MCV (80.0-100.0) fL MCHC (31.0-37.0) g/dL RDW (11.5-15.5) % Neutrophils # (1.3-7.7) k/uL Lymphocytes # (1.0-4.8) k/uL PT (9.0-12.0) sec INR (<1.2) Sodium (137-145) mmol/L Potassium (3.5-5.1) mmol/L BUN (7-17) mg/dL Creatinine (0.52-1.04) mg/dL Glucose (74-99) mg/dL POC Glucose (mg/dL) 217 H 141 H 193 H (75-99) mg/dL Calcium (8.4-10.2) mg/dL Magnesium (1.6-2.3) mg/dL Urine Appearance (Clear) Urine Protein (Negative) Urine Blood (Negative) Ur Leukocyte Esterase (Negative) Urine WBC (0-5) /hpf 06/30/20 06/30/20 06/30/20 Range/Units 06:55 06:55 06:55 RBC 3.23 L (3.80-5.40) m/uL Hgb 9.8 L (11.4-16.0) gm/dL Hct 32.6 L (34.0-46.0) % MCV 100.9 H (80.0-100.0) fL MCHC 30.1 L (31.0-37.0) g/dL RDW 15.8 H (11.5-15.5) % Neutrophils # 8.0 H (1.3-7.7) k/uL Lymphocytes # 0.7 L (1.0-4.8) k/uL PT 16.1 H (9.0-12.0) sec INR 1.6 H (<1.2) Sodium 131 L (137-145) mmol/L Potassium 3.3 L (3.5-5.1) mmol/L BUN 29 H (7-17) mg/dL Creatinine 1.78 H (0.52-1.04) mg/dL Glucose 370 H (74-99) mg/dL POC Glucose (mg/dL) (75-99) mg/dL Calcium 7.3 L (8.4-10.2) mg/dL Magnesium 1.5 L (1.6-2.3) mg/dL Urine Appearance (Clear) Urine Protein (Negative) Urine Blood (Negative) Ur Leukocyte Esterase (Negative) Urine WBC (0-5) /hpf Microbiology - Last 24 Hours (Table) 06/29/20 13:51 Urine Culture - Preliminary Urine,Clean Catch 06/28/20 15:51 Blood Culture - Preliminary Blood No Growth after 24 hours 06/28/20 04:15 Urine Culture - Preliminary Urine,Voided Gram Neg Bacilli Group D Enterococcus Assessment and Plan Plan: assessment: 1. Acute kidney injury secondary to ATN secondary to infection and hemodynamic instability. Creatinine was 2.16 on admission and is 1.78 today. 2. Status post fall with acute left femur fracture. Orthopedic surgery following. 3. Chronic kidney disease stage III with baseline creatinine near 1.5. 4. A. fib with RVR status post Cardizem drip. 5. Metabolic acidosis secondary to acute kidney injury and GI losses. better. 6. UTI maintained on antibiotics. Infectious disease following. 7. Chronic diastolic CHF. 8. Hypokalemia secondary to intracellular shifting from IV bicarb. 9. Hyponatremia, hypertonic secondary to hyperglycemia. Corrected sodium near normal. 10. Hypomagnesemia from poor intake. Plan: discontinue bicarbonate drip. Start normal saline at 50 mL an hour - will Hep-Lock IV fluids once tolerating oral intake. Avoid nephrotoxins. Continue to monitor renal function and urine output. replace potassium. 40 mg once today. replace magnesium. 2 g IV today.
[2020-06-30 10:40] LABS: Appearance,Urine Turbid (Clear); Bacteria,Urine Occasional /hpf; Bilirubin,Urine Negative (Negative); Blood,Urine Small (Negative); Color,Urine Yellow; Glucose,Urine (UA) Negative (Negative); Ketones,Urine Negative (Negative); Leukocyte Esterase,Urine Large (Negative); Mucus,Urine Rare /hpf; Nitrite,Urine Negative (Negative); Protein,Urine 1+ (Negative); RBC,Urine 33 /hpf (0-5); Specific Gravity,Urine 1.016 (1.001-1.035); Squamous Epithelial Cell,Urine 61 /hpf (0-4); Urobilinogen,Urine <2.0 mg/dL (<2.0); WBC,Urine >182 /hpf (0-5)
[2020-06-30] MEDS: DEXTROSE 5% IN WATER 1,000 ML with SODIUM BICARB (1 MEQ/ML) 150 ML IV SCH (10:48)
[2020-06-30] MEDS: THIAMINE 100 MG TAB PO SCH (11:02)
[2020-06-30] MEDS: FOLIC ACID 1 MG TAB PO SCH (11:02)
[2020-06-30] MEDS: MAGNESIUM SULFATE-D5W PMX 1 GM in DEXTROSE/WATER 1 100ML.BAG IVPB SCH ×2 (11:02→16:04)
[2020-06-30] MEDS: SODIUM CHLORIDE 0.9% 1,000 ML IV SCH (11:07)
--- NOTE | 2020-06-30 11:14 | P.PN ---
Progress Note - Text Progress Note Date: 06/30/20 The patient is seen and examined today bedside. She is comfortable laying flat in bed. She still complains of pain in her left hip with motion. She denies any new changes. Her abdomen soft and nontender and she is afebrile Her urine looks much more clear now the UA still shows significant leukocytes and sediment though the urine itself looks much clear as the day progresses her lower extremities are soft nontender calf and thighs. She has pain at her left hip with any motion. She has sustained dorsal flexion plantar flexion and EHL intact INR today is 1.6 Assessment and plan Acute left hip femoral neck fracture status post fall Urinary tract infection, chronic with history of colovesicular fistula Atrial fibrillation with Coumadin currently held with INR still at 1.6 The patient's urine seems to be improving and her INR is normalizing. Her INR still a bit high today to proceed with surgery but I think that she will be able to pursue surgery tomorrow. I discussed this with Dr. Prakash Villeda, one of our partners [facility] and we can plan to pursue surgery tomorrow with him. It is okay for her to eat today and we'll make her nothing by mouth after midnight and schedule surgery for Tuesday. I discussed this at length with the house staff and the patient and he understands.
[2020-06-30 12:04] LABS: Glucose,Whole Blood 145 mg/dL (75-99)
[2020-06-30] MEDS ORDERED: Potassium Replacement Protocol 1 EACH MISC MISCELLANE PRN (12:19)
[2020-06-30] MEDS ORDERED: Magnesium Replacement Protocol 1 EACH MISC MISCELLANE PRN (12:19)
[2020-06-30] MEDS: LINEZOLID 600 MG in DEXTROSE/WATER 1 300ML.BAG IVPB SCH ×2 (13:24→23:12)
--- NOTE | 2020-06-30 14:42 | P.PN ---
Subjective Progress Note Date: 06/30/20 HISTORY OF PRESENT ILLNESS: Patient examined at the bedside with Dr. Chavira. Patient denies chest pain or pressure. Denies shortness of breath. She complains of discomfort in her left hip. INR 1.6. Vital signs stable. PHYSICAL EXAM: VITAL SIGNS: Reviewed. GENERAL: Well-developed in no acute distress. NECK: Supple. No JVD or thyromegaly LUNGS: Respirations even and unlabored. Lungs essentially clear to auscultation bilaterally. HEART: Irregular rate and rhythm. S1 and S2 heard. EXTREMITIES: Normal range of motion. No clubbing or cyanosis. Peripheral pulses intact. No lower extremity edema ASSESSMENT: Left hip fracture, s/p fall Chronic persistent atrial fibrillation Hypertension PLAN: Continue telemetry monitoring Coumadin remains on hold. Resume postoperatively when cleared by orthopedics Patient to undergo surgical intervention of her left hip fracture tomorrow Nurse practitioner note has been reviewed by physician. Signing provider agrees with the documented findings, assessment, and plan of care. Objective - Vital Signs Vital signs: Vital Signs Temp 97.5 F L 06/30/20 07:58 Pulse 82 06/30/20 10:59 Resp 18 06/30/20 10:59 BP 122/79 06/30/20 10:59 Pulse Ox 97 06/30/20 10:59 Intake & Output 06/29/20 06/30/20 06/30/20 18:59 06:59 18:59 Intake Total 200 350 Output Total 550 500 Balance -350 -500 350 Weight 85 kg Intake: Intake, IV Titration 350 Amount Magnesium Sulfate-D5w Pmx 100 1 gm In Dextrose/Water 1 100ml.bag @ 100 mls/hr IVPB Q1H [facility] Rx#: [id number] Sodium Chloride 0.9% 1, 250 000 ml @ 50 mls/hr IV . Q20H [facility] Rx#:[id number] Oral 200 Output: Urine 550 500 Other: Voiding Method Indwelling Catheter Indwelling Catheter Indwelling Catheter - Labs CBC & Chem 7: 06/30/20 06:55 06/30/20 06:55 Labs: Abnormal Lab Results - Last 24 Hours (Table) 06/29/20 06/29/20 06/29/20 Range/Units 13:51 17:14 20:54 RBC (3.80-5.40) m/uL Hgb (11.4-16.0) gm/dL Hct (34.0-46.0) % MCV (80.0-100.0) fL MCHC (31.0-37.0) g/dL RDW (11.5-15.5) % Neutrophils # (1.3-7.7) k/uL Lymphocytes # (1.0-4.8) k/uL PT (9.0-12.0) sec INR (<1.2) Sodium (137-145) mmol/L Potassium (3.5-5.1) mmol/L BUN (7-17) mg/dL Creatinine (0.52-1.04) mg/dL Glucose (74-99) mg/dL POC Glucose (mg/dL) 217 H 141 H (75-99) mg/dL Calcium (8.4-10.2) mg/dL Magnesium (1.6-2.3) mg/dL Urine Appearance Cloudy H (Clear) Urine Protein 1+ H (Negative) Urine Blood Small H (Negative) Ur Leukocyte Esterase Moderate H (Negative) Urine RBC (0-5) /hpf Urine WBC 12 H (0-5) /hpf Urine WBC Clumps (None) /hpf Ur Squamous Epith Cells (0-4) /hpf Urine Bacteria (None) /hpf Urine Mucus (None) /hpf 06/30/20 06/30/20 06/30/20 Range/Units 06:30 06:55 06:55 RBC 3.23 L (3.80-5.40) m/uL Hgb 9.8 L (11.4-16.0) gm/dL Hct 32.6 L (34.0-46.0) % MCV 100.9 H (80.0-100.0) fL MCHC 30.1 L (31.0-37.0) g/dL RDW 15.8 H (11.5-15.5) % Neutrophils # 8.0 H (1.3-7.7) k/uL Lymphocytes # 0.7 L (1.0-4.8) k/uL PT (9.0-12.0) sec INR (<1.2) Sodium 131 L (137-145) mmol/L Potassium 3.3 L (3.5-5.1) mmol/L BUN 29 H (7-17) mg/dL Creatinine 1.78 H (0.52-1.04) mg/dL Glucose 370 H (74-99) mg/dL POC Glucose (mg/dL) 193 H (75-99) mg/dL Calcium 7.3 L (8.4-10.2) mg/dL Magnesium 1.5 L (1.6-2.3) mg/dL Urine Appearance (Clear) Urine Protein (Negative) Urine Blood (Negative) Ur Leukocyte Esterase (Negative) Urine RBC (0-5) /hpf Urine WBC (0-5) /hpf Urine WBC Clumps (None) /hpf Ur Squamous Epith Cells (0-4) /hpf Urine Bacteria (None) /hpf Urine Mucus (None) /hpf 06/30/20 06/30/20 06/30/20 Range/Units 06:55 09:40 12:03 RBC (3.80-5.40) m/uL Hgb (11.4-16.0) gm/dL Hct (34.0-46.0) % MCV (80.0-100.0) fL MCHC (31.0-37.0) g/dL RDW (11.5-15.5) % Neutrophils # (1.3-7.7) k/uL Lymphocytes # (1.0-4.8) k/uL PT 16.1 H (9.0-12.0) sec INR 1.6 H (<1.2) Sodium (137-145) mmol/L Potassium (3.5-5.1) mmol/L BUN (7-17) mg/dL Creatinine (0.52-1.04) mg/dL Glucose (74-99) mg/dL POC Glucose (mg/dL) 145 H (75-99) mg/dL Calcium (8.4-10.2) mg/dL Magnesium (1.6-2.3) mg/dL Urine Appearance Turbid H (Clear) Urine Protein 1+ H (Negative) Urine Blood Small H (Negative) Ur Leukocyte Esterase Large H (Negative) Urine RBC 33 H (0-5) /hpf Urine WBC >182 H (0-5) /hpf Urine WBC Clumps Many H (None) /hpf Ur Squamous Epith Cells 61 H (0-4) /hpf Urine Bacteria Occasional H (None) /hpf Urine Mucus Rare H (None) /hpf Microbiology - Last 24 Hours (Table) 06/28/20 04:15 Urine Culture - Preliminary Urine,Voided Citrobacter freundii Group D Enterococcus 06/29/20 13:51 Urine Culture - Preliminary Urine,Clean Catch 06/28/20 15:51 Blood Culture - Preliminary Blood No Growth after 24 hours
[2020-06-30 16:43] LABS: Glucose,Whole Blood 169 mg/dL (75-99)
[2020-06-30] MEDS: LACTOBACILLUS ACIDOPH & BULGAR 1 EACH PACKET PO SCH (17:30)
[2020-06-30 19:41] LABS: T4, Free (Free Thyroxine) 1.84 ng/dL (0.78-2.19)
[2020-06-30 20:55] LABS: Glucose,Whole Blood 172 mg/dL (75-99)
[2020-06-30] MEDS: MULTIVITAMINS, THERA 1 EACH TAB PO SCH (21:10)
--- NOTE | 2020-06-30 23:05 | PN ---
PROGRESS NOTE DATE OF SERVICE: 06/30/2020 This 74-year-old woman who was admitted after a fall and left hip fracture has multiple other complex medical issues, including atrial fibrillation, resistant UTI with VRE as well as recent sigmoid colectomy for possible colovesical fistula. The patient is being closely monitored. She is on broad-spectrum IV antibiotics. A CT scan of the chest, abdomen and pelvis done without contrast did not show any significant acute abnormalities. Orthopedics is planning surgery tomorrow. Multiple consultations are ongoing at this time. White count is normal at 9 and, as mentioned earlier, the urine culture showed Citrobacter freundii and Enterobacter faecium, which is actually vancomycin-sensitive at this time. Past medical history reviewed. REVIEW OF SYSTEMS: CARDIOVASCULAR SYSTEM: No angina, palpitations. RESPIRATORY SYSTEM: As mentioned earlier. GI: No nausea, vomiting. : No dysuria or retention. NERVOUS SYSTEM: No numbness, weakness. CURRENT MEDICATIONS: Reviewed. They include Tylenol, [place], Zyloprim, Xanax, folic acid, Solu-Cortef, NovoLog, Synthroid, Lopressor, p.r.n. medications, IV antibiotics. PHYSICAL EXAMINATION: Patient is alert and oriented x3. Pulse 85, blood pressure 99/60, respiration 18, temperature 97.6, pulse ox 99% on room air. HEENT: Conjunctivae normal. NECK: No jugular venous distention. CARDIOVASCULAR SYSTEM: S1, S2 muffled. RESPIRATORY SYSTEM: Breath sounds diminished at the bases. A few scattered rhonchi and crackles. ABDOMEN: Soft, non-tender. LEGS: Status post hip fracture. NERVOUS SYSTEM: No focal deficit. LABS: Hemoglobin 9.8. Otherwise, INR 1.6, sodium 131, potassium 3.3, magnesium 1.5. ASSESSMENT: 1. Status post fall and left hip fracture. 2. Atrial fibrillation with fast ventricular rate, present on admission. 3. Urinary tract infection with Citrobacter freundii and Enterococcus faecium, vancomycin-sensitive, with possible sepsis, present on admission. 4. History of previous vancomycin-resistant Enterococcus. 5. Recent sigmoid colectomy with low anterior resection and lysis of adhesions for possible colovesical fistula and incisional hernia. 6. Increased white count. 7. Anemia, normocytic. 8. Elevated PT/INR, improving. 9. Mild acidosis, present on admission. 10.Hyponatremia. 11.Low TSH. 12.History of asthma. 13.History of fibromyalgia. 14.Hypertension. 15.History of degenerative joint disease. 16.History of rheumatoid arthritis. 17.History of obstructive sleep apnea. 18.History of diabetes mellitus, type 2. 19.History of tibial plateau fracture. 20.Inflammatory bowel disease. 21.History of post-polio syndrome. 22.Hypothyroidism. 23.History of cholecystectomy. 24.History of cardiac catheterization. 25.History of degenerative joint disease, L3-4 lumbar laminectomy. 26.History of depression. RECOMMENDATIONS AND DISCUSSION: I recommend to continue current medications, continue with the monitoring, symptomatic treatment. I recommend continuing with the antibiotics. Infectious Disease is following the patient closely. Otherwise, the patient is getting more stabilized medically. Patient will be cleared for surgery in a stable condition with extremely guarded prognosis because of multiple other complex medical issues. I would also recommend free T3 and free T4. Continue the rest of the medications. See orders. DVT prophylaxis. Further recommendations to follow. MMODL / IJN: [id number] /
--- NOTE | 2020-07-01 00:54 | PN ---
PROGRESS NOTE DATE OF SERVICE: 06/30/2020 REASON FOR FOLLOWUP: Urinary tract infection. INTERVAL HISTORY: The patient is currently afebrile. The patient is breathing comfortably. The patient denies having any chest pain or shortness of breath or cough. Pain to the is currently controlled. No nausea, no vomiting. No abdominal pain or diarrhea. PHYSICAL EXAMINATION: Blood pressure 114/67 with pulse of 67, temperature is 97.6. She is 95% on room air. General description is an elderly female lying in bed in no distress. RESPIRATORY SYSTEM: Unlabored breathing, clear to auscultation anteriorly. HEART: S1, S2. Regular rate and rhythm. ABDOMEN: Soft, no tenderness. LABS: Hemoglobin 9.8, white count 9.0, creatinine 1.78. DIAGNOSTIC IMPRESSION AND PLAN: Patient with Citrobacter and Enterococcus faecium urinary tract infection for which the patient is currently covered with Zosyn and linezolid. High risk of nephrotoxicity from vancomycin to continue and monitor clinical course closely. MMODL / IJN: [id number] /
[2020-07-01] MEDS: PIPERACILLIN-TAZOBACTAM 3.375 GM in SODIUM CHLORIDE 0.9% 100 ML IVPB SCH ×3 (04:56→20:24)
[2020-07-01] MEDS: MORPHINE SULFATE 4 MG/ML SYRINGE IV PRN ×3 (04:56→12:25)
[2020-07-01] MEDS: LEVOTHYROXINE 88 MCG TAB PO SCH (06:08)
[2020-07-01] MEDS: BALSALAZIDE DISODIUM 750 MG CAPSULE PO SCH ×3 (06:09→17:52)
[2020-07-01] MEDS: SODIUM CHLORIDE 0.9% 1,000 ML IV SCH (06:23)
[2020-07-01 06:26] LABS: Glucose,Whole Blood 174 mg/dL (75-99)
[2020-07-01] MEDS: INSULIN ASPART (NovoLOG) 100 UNIT/ML VIAL SQ SCH ×4 (06:29→23:14)
[2020-07-01 07:24] LABS: Anisocytosis Slight; Basophils % (A) 0 %; Eosinophils % (A) 0 %; HCT 35.8 % (34.0-46.0); Hypochromasia Moderate; Lymphocytes # (A) 0.7 k/uL (1.0-4.8); Lymphocytes % (A) 7 %; MCH 30.5 pg (25.0-35.0); MCHC 30.8 g/dL (31.0-37.0); Macrocytosis Slight; Mean Platelet Volume 9.3; Monocytes # (A) 0.3 k/uL (0-1.0); Monocytes % (A) 3 %; Neutrophils % (A) 89 %; Platelet Count 188 k/uL (150-450); Poikilocytosis Slight; RBC 3.62 m/uL (3.80-5.40); RDW 16.2 % (11.5-15.5); WBC 10.1 k/uL (3.8-10.6)
[2020-07-01 07:29] LABS: INR 1.1 (<1.2); Partial Thromboplastin Time 29.1 sec (22.0-30.0); Prothrombin Time 11.4 sec (9.0-12.0)
[2020-07-01 07:40] LABS: Calcium 8.3 mg/dL (8.4-10.2); Magnesium 2.3 mg/dL (1.6-2.3); Potassium 4.3 mmol/L (3.5-5.1)
[2020-07-01] MEDS: METOPROLOL TARTRATE 25 MG TAB PO SCH ×3 (08:50→23:14)
[2020-07-01] MEDS: allopurinoL 100 MG TAB PO SCH ×3 (08:50→23:14)
[2020-07-01] MEDS: PREGABALIN 100 MG CAP PO SCH ×2 (08:50→23:14)
[2020-07-01] MEDS: HYDROCORTISONE SUCCINATE 100 MG/2 ML VIAL IV SCH ×2 (08:50→17:51)
[2020-07-01] MEDS: PANTOPRAZOLE 40 MG/10 ML VIAL IVP SCH ×2 (08:50→23:14)
--- NOTE | 2020-07-01 09:43 | P.PN ---
Subjective Progress Note Date: 07/01/20 This is a 74 year-old female who is admitted for left hip fracture. Patient is seen and evaluated at bedside today with Dr. Prakash Villeda. Patient denies any new symptoms or complaints today. Objective - Vital Signs Vital signs: Vital Signs Temp 98.5 F 07/01/20 04:00 Pulse 89 07/01/20 04:00 Resp 19 07/01/20 04:00 BP 125/75 07/01/20 04:00 Pulse Ox 96 07/01/20 04:00 Intake & Output 06/30/20 07/01/20 07/01/20 18:59 06:59 18:59 Intake Total 470 Output Total 1200 Balance 470 -1200 Weight 91 kg Intake: Intake, IV Titration 350 Amount Magnesium Sulfate-D5w Pmx 100 1 gm In Dextrose/Water 1 100ml.bag @ 100 mls/hr IVPB Q1H [facility] Rx#: [id number] Sodium Chloride 0.9% 1, 250 000 ml @ 50 mls/hr IV . Q20H [facility] Rx#:[id number] Oral 120 Output: Urine 1200 Other: Voiding Method Indwelling Catheter Indwelling Catheter - Exam Patient is lying comfortably in bed in no acute distress. Patient is alert and oriented x3. The left lower extremity is warm and well perfused. Sensation intact. - Labs CBC & Chem 7: 07/01/20 06:45 07/01/20 06:45 Labs: Abnormal Lab Results - Last 24 Hours (Table) 06/30/20 06/30/20 06/30/20 Range/Units 06:55 09:40 12:03 RBC (3.80-5.40) m/uL Hgb (11.4-16.0) gm/dL MCHC (31.0-37.0) g/dL RDW (11.5-15.5) % Neutrophils # (1.3-7.7) k/uL Lymphocytes # (1.0-4.8) k/uL Sodium (137-145) mmol/L Carbon Dioxide (22-30) mmol/L BUN (7-17) mg/dL Creatinine (0.52-1.04) mg/dL Glucose (74-99) mg/dL POC Glucose (mg/dL) 145 H (75-99) mg/dL Calcium (8.4-10.2) mg/dL Free T3 pg/mL 1.8 L (2.8-5.3) pg/ml Urine Appearance Turbid H (Clear) Urine Protein 1+ H (Negative) Urine Blood Small H (Negative) Ur Leukocyte Esterase Large H (Negative) Urine RBC 33 H (0-5) /hpf Urine WBC >182 H (0-5) /hpf Urine WBC Clumps Many H (None) /hpf Ur Squamous Epith Cells 61 H (0-4) /hpf Urine Bacteria Occasional H (None) /hpf Urine Mucus Rare H (None) /hpf 06/30/20 06/30/20 07/01/20 Range/Units 16:42 20:52 06:24 RBC (3.80-5.40) m/uL Hgb (11.4-16.0) gm/dL MCHC (31.0-37.0) g/dL RDW (11.5-15.5) % Neutrophils # (1.3-7.7) k/uL Lymphocytes # (1.0-4.8) k/uL Sodium (137-145) mmol/L Carbon Dioxide (22-30) mmol/L BUN (7-17) mg/dL Creatinine (0.52-1.04) mg/dL Glucose (74-99) mg/dL POC Glucose (mg/dL) 169 H 172 H 174 H (75-99) mg/dL Calcium (8.4-10.2) mg/dL Free T3 pg/mL (2.8-5.3) pg/ml Urine Appearance (Clear) Urine Protein (Negative) Urine Blood (Negative) Ur Leukocyte Esterase (Negative) Urine RBC (0-5) /hpf Urine WBC (0-5) /hpf Urine WBC Clumps (None) /hpf Ur Squamous Epith Cells (0-4) /hpf Urine Bacteria (None) /hpf Urine Mucus (None) /hpf 07/01/20 07/01/20 Range/Units 06:45 06:45 RBC 3.62 L (3.80-5.40) m/uL Hgb 11.0 L (11.4-16.0) gm/dL MCHC 30.8 L (31.0-37.0) g/dL RDW 16.2 H (11.5-15.5) % Neutrophils # 9.0 H (1.3-7.7) k/uL Lymphocytes # 0.7 L (1.0-4.8) k/uL Sodium 129 L (137-145) mmol/L Carbon Dioxide 17 L (22-30) mmol/L BUN 34 H (7-17) mg/dL Creatinine 2.38 H (0.52-1.04) mg/dL Glucose 165 H (74-99) mg/dL POC Glucose (mg/dL) (75-99) mg/dL Calcium 8.3 L (8.4-10.2) mg/dL Free T3 pg/mL (2.8-5.3) pg/ml Urine Appearance (Clear) Urine Protein (Negative) Urine Blood (Negative) Ur Leukocyte Esterase (Negative) Urine RBC (0-5) /hpf Urine WBC (0-5) /hpf Urine WBC Clumps (None) /hpf Ur Squamous Epith Cells (0-4) /hpf Urine Bacteria (None) /hpf Urine Mucus (None) /hpf Microbiology - Last 24 Hours (Table) 06/29/20 13:51 Urine Culture - Final Urine,Clean Catch 06/28/20 15:51 Blood Culture - Preliminary Blood No Growth after 48 hours 06/28/20 04:15 Urine Culture - Final Urine,Voided Citrobacter freundii Enterococcus faecium Assessment and Plan (1) Closed left hip fracture Current Visit: Yes Status: Acute Code(s): S72.002A - FRACTURE OF UNSP PART OF NECK OF LEFT FEMUR, INIT SNOMED Code(s): 469004466 (2) Fall Current Visit: Yes Status: Acute Code(s): W19.XXXA - UNSPECIFIED FALL, INITIAL ENCOUNTER SNOMED Code(s): 9487212 Plan: 1. Direct anterior approach left hip hemiarthroplasty was scheduled for today. The patient's surgery will likely be postponed due to hyponatremia. 2. Appreciate input from medicine. 3. Will proceed with surgery once patient is medically cleared.
[2020-07-01] MEDS ORDERED: FUROSEMIDE 10 MG/ML 4 ML VIAL IV STA (09:47)
--- NOTE | 2020-07-01 10:39 | P.PN ---
Subjective patient is seen in follow-up for acute kidney injury and chronic kidney disease. Patient is chronic kidney disease stage III with baseline creatinine near 1.5. Renal function a little worse today. Nonoliguric. No vomiting or diarrhea. no chest pain or shortness of breath. No changes overnight. Sodium level 129. Vital signs are stable. General: The patient appeared well nourished and normally developed. HEENT: Head exam is unremarkable. Neck is without jugular venous distension. LUNGS: Lungs are clear to auscultation and percussion. Breath sounds decreased. HEART: Rate and Rhythm are regular. ABDOMEN: soft, nontender. EXTREMITITES: 1+ edema. Objective - Vital Signs Vital signs: Vital Signs Temp 97.9 F 07/01/20 08:00 Pulse 83 07/01/20 08:00 Resp 18 07/01/20 08:00 BP 114/77 07/01/20 08:00 Pulse Ox 97 07/01/20 08:00 Intake & Output 06/30/20 07/01/20 07/01/20 18:59 06:59 18:59 Intake Total 470 Output Total 1200 Balance 470 -1200 Weight 91 kg Intake: Intake, IV Titration 350 Amount Magnesium Sulfate-D5w Pmx 100 1 gm In Dextrose/Water 1 100ml.bag @ 100 mls/hr IVPB Q1H [facility] Rx#: [id number] Sodium Chloride 0.9% 1, 250 000 ml @ 50 mls/hr IV . Q20H [facility] Rx#:[id number] Oral 120 Output: Urine 1200 Other: Voiding Method Indwelling Catheter Indwelling Catheter - Labs CBC & Chem 7: 07/01/20 06:45 07/01/20 06:45 Labs: Abnormal Lab Results - Last 24 Hours (Table) 06/30/20 06/30/20 06/30/20 Range/Units 06:55 09:40 12:03 RBC (3.80-5.40) m/uL Hgb (11.4-16.0) gm/dL MCHC (31.0-37.0) g/dL RDW (11.5-15.5) % Neutrophils # (1.3-7.7) k/uL Lymphocytes # (1.0-4.8) k/uL Sodium (137-145) mmol/L Carbon Dioxide (22-30) mmol/L BUN (7-17) mg/dL Creatinine (0.52-1.04) mg/dL Glucose (74-99) mg/dL POC Glucose (mg/dL) 145 H (75-99) mg/dL Calcium (8.4-10.2) mg/dL Free T3 pg/mL 1.8 L (2.8-5.3) pg/ml Urine Appearance Turbid H (Clear) Urine Protein 1+ H (Negative) Urine Blood Small H (Negative) Ur Leukocyte Esterase Large H (Negative) Urine RBC 33 H (0-5) /hpf Urine WBC >182 H (0-5) /hpf Urine WBC Clumps Many H (None) /hpf Ur Squamous Epith Cells 61 H (0-4) /hpf Urine Bacteria Occasional H (None) /hpf Urine Mucus Rare H (None) /hpf 06/30/20 06/30/20 07/01/20 Range/Units 16:42 20:52 06:24 RBC (3.80-5.40) m/uL Hgb (11.4-16.0) gm/dL MCHC (31.0-37.0) g/dL RDW (11.5-15.5) % Neutrophils # (1.3-7.7) k/uL Lymphocytes # (1.0-4.8) k/uL Sodium (137-145) mmol/L Carbon Dioxide (22-30) mmol/L BUN (7-17) mg/dL Creatinine (0.52-1.04) mg/dL Glucose (74-99) mg/dL POC Glucose (mg/dL) 169 H 172 H 174 H (75-99) mg/dL Calcium (8.4-10.2) mg/dL Free T3 pg/mL (2.8-5.3) pg/ml Urine Appearance (Clear) Urine Protein (Negative) Urine Blood (Negative) Ur Leukocyte Esterase (Negative) Urine RBC (0-5) /hpf Urine WBC (0-5) /hpf Urine WBC Clumps (None) /hpf Ur Squamous Epith Cells (0-4) /hpf Urine Bacteria (None) /hpf Urine Mucus (None) /hpf 07/01/20 07/01/20 Range/Units 06:45 06:45 RBC 3.62 L (3.80-5.40) m/uL Hgb 11.0 L (11.4-16.0) gm/dL MCHC 30.8 L (31.0-37.0) g/dL RDW 16.2 H (11.5-15.5) % Neutrophils # 9.0 H (1.3-7.7) k/uL Lymphocytes # 0.7 L (1.0-4.8) k/uL Sodium 129 L (137-145) mmol/L Carbon Dioxide 17 L (22-30) mmol/L BUN 34 H (7-17) mg/dL Creatinine 2.38 H (0.52-1.04) mg/dL Glucose 165 H (74-99) mg/dL POC Glucose (mg/dL) (75-99) mg/dL Calcium 8.3 L (8.4-10.2) mg/dL Free T3 pg/mL (2.8-5.3) pg/ml Urine Appearance (Clear) Urine Protein (Negative) Urine Blood (Negative) Ur Leukocyte Esterase (Negative) Urine RBC (0-5) /hpf Urine WBC (0-5) /hpf Urine WBC Clumps (None) /hpf Ur Squamous Epith Cells (0-4) /hpf Urine Bacteria (None) /hpf Urine Mucus (None) /hpf Microbiology - Last 24 Hours (Table) 06/29/20 13:51 Urine Culture - Final Urine,Clean Catch 06/28/20 15:51 Blood Culture - Preliminary Blood No Growth after 48 hours 06/28/20 04:15 Urine Culture - Final Urine,Voided Citrobacter freundii Enterococcus faecium Assessment and Plan Plan: assessment: 1. Acute kidney injury secondary to ATN secondary to infection and hemodynamic instability. Creatinine was 2.16 on admission and did improve to 1.78 as of June 30 - 2.3 today. 2. Status post fall with acute left femur fracture. Orthopedic surgery following. 3. Chronic kidney disease stage III with baseline creatinine near 1.5. 4. A. fib with RVR status post Cardizem drip. 5. Metabolic acidosis secondary to acute kidney injury and GI losses. 6. UTI maintained on antibiotics. Infectious disease following. 7. Chronic diastolic CHF. 8. Hypokalemia secondary to intracellular shifting from IV bicarb. better post replacement. 9. Hyponatremia, hypervolemic. 10. Hypomagnesemia from poor intake. improved post replacement. 11. Volume overload. Plan: Lasix 40 mg IV once now. 1500 mL fluid restriction. Repeat sodium level this afternoon. Continue to monitor renal function and urine output.
[2020-07-01 11:47] LABS: Glucose,Whole Blood 131 mg/dL (75-99)
[2020-07-01] MEDS: LINEZOLID 600 MG in DEXTROSE/WATER 1 300ML.BAG IVPB SCH ×2 (12:23→23:15)
[2020-07-01 12:44] LABS: Calcium 5.6 mg/dL (8.4-10.2)
[2020-07-01 12:45] LABS: Potassium 2.6 mmol/L (3.5-5.1)
[2020-07-01] MEDS ORDERED: Potassium Replacement Protocol 1 EACH MISC MISCELLANE PRN (13:05)
--- NOTE | 2020-07-01 13:20 | P.PN ---
Subjective 74-year-old female admitted for fall and left hip fracture. Patient is presently broad-spectrum antibiotics. Patient is supposed to undergo surgical intervention for her fractured today but patient is hyponatremic because of which patient didn't undergo surgery today. Nephrology is following the patient patient does have acute renal failure as well patient is receiving IV fluids at 50 mL per hour along with free water restriction as per nephrology. Nephrology believes elevation in creatinine which is a 2.3 today worse than yesterday and the same as admission is secondary to acute tubular necrosis from hypotension patient does have metabolic acidosis from that. Patient is presently on linezolid and Zosyn for enterococcus ECM and Citrobacter respectively. Patient is high risk for nephrotoxicity because of which patient is a linezolid. Constitutional: Denied any fatigue denied any fever. Cardio vascular: denied any chest pain, palpitations Gastrointestinal denied any nausea vomiting Pulmonary: Denied any shortness of breath cough Neurologic denied any new focal deficits All inpatient medications were reviewed and appropriate changes in these medications as dictated in the interval history and assessment and plan. Objective - Vital Signs Vital signs: Vital Signs Temp 97.9 F 07/01/20 08:00 Pulse 83 07/01/20 08:00 Resp 18 07/01/20 08:00 BP 114/77 07/01/20 08:00 Pulse Ox 97 07/01/20 08:00 Intake & Output 06/30/20 07/01/20 07/01/20 18:59 06:59 18:59 Intake Total 470 Output Total 1200 450 Balance 470 -1200 -450 Weight 91 kg Intake: Intake, IV Titration 350 Amount Magnesium Sulfate-D5w Pmx 100 1 gm In Dextrose/Water 1 100ml.bag @ 100 mls/hr IVPB Q1H [facility] Rx#: [id number] Sodium Chloride 0.9% 1, 250 000 ml @ 50 mls/hr IV . Q20H [facility] Rx#:[id number] Oral 120 Output: Urine 1200 450 Other: Voiding Method Indwelling Catheter Indwelling Catheter Indwelling Catheter - Exam PHYSICAL EXAMINATION: GENERAL: The patient is alert and oriented x3, not in any acute distress. Well developed, well nourished. HEENT: Pupils are round and equally reacting to light. EOMI. No scleral icterus. No conjunctival pallor. Normocephalic, atraumatic. No pharyngeal erythema. No thyromegaly. CARDIOVASCULAR: S1 and S2 present. No murmurs, rubs, or gallops. PULMONARY: Chest is clear to auscultation, no wheezing or crackles. ABDOMEN: Soft, nontender, nondistended, normoactive bowel sounds. No palpable organomegaly. MUSCULOSKELETAL: No joint swelling or deformity. EXTREMITIES: No cyanosis, clubbing, or pedal edema. NEUROLOGICAL: Gross neurological examination did not reveal any focal deficits. SKIN: No rashes. - Labs CBC & Chem 7: 07/01/20 06:45 07/01/20 12:02 Labs: Abnormal Lab Results - Last 24 Hours (Table) 06/30/20 06/30/20 06/30/20 Range/Units 06:55 16:42 20:52 RBC (3.80-5.40) m/uL Hgb (11.4-16.0) gm/dL MCHC (31.0-37.0) g/dL RDW (11.5-15.5) % Neutrophils # (1.3-7.7) k/uL Lymphocytes # (1.0-4.8) k/uL Sodium (137-145) mmol/L Potassium (3.5-5.1) mmol/L Chloride (98-107) mmol/L Carbon Dioxide (22-30) mmol/L BUN (7-17) mg/dL Creatinine (0.52-1.04) mg/dL Glucose (74-99) mg/dL POC Glucose (mg/dL) 169 H 172 H (75-99) mg/dL Calcium (8.4-10.2) mg/dL Free T3 pg/mL 1.8 L (2.8-5.3) pg/ml 07/01/20 07/01/20 07/01/20 Range/Units 06:24 06:45 06:45 RBC 3.62 L (3.80-5.40) m/uL Hgb 11.0 L (11.4-16.0) gm/dL MCHC 30.8 L (31.0-37.0) g/dL RDW 16.2 H (11.5-15.5) % Neutrophils # 9.0 H (1.3-7.7) k/uL Lymphocytes # 0.7 L (1.0-4.8) k/uL Sodium 129 L (137-145) mmol/L Potassium (3.5-5.1) mmol/L Chloride (98-107) mmol/L Carbon Dioxide 17 L (22-30) mmol/L BUN 34 H (7-17) mg/dL Creatinine 2.38 H (0.52-1.04) mg/dL Glucose 165 H (74-99) mg/dL POC Glucose (mg/dL) 174 H (75-99) mg/dL Calcium 8.3 L (8.4-10.2) mg/dL Free T3 pg/mL (2.8-5.3) pg/ml 07/01/20 07/01/20 Range/Units 11:45 12:02 RBC (3.80-5.40) m/uL Hgb (11.4-16.0) gm/dL MCHC (31.0-37.0) g/dL RDW (11.5-15.5) % Neutrophils # (1.3-7.7) k/uL Lymphocytes # (1.0-4.8) k/uL Sodium 134 L (137-145) mmol/L Potassium 2.6 L* (3.5-5.1) mmol/L Chloride 117 H (98-107) mmol/L Carbon Dioxide 15 L (22-30) mmol/L BUN 25 H (7-17) mg/dL Creatinine 1.60 H (0.52-1.04) mg/dL Glucose 103 H (74-99) mg/dL POC Glucose (mg/dL) 131 H (75-99) mg/dL Calcium 5.6 L* (8.4-10.2) mg/dL Free T3 pg/mL (2.8-5.3) pg/ml Microbiology - Last 24 Hours (Table) 06/29/20 13:51 Urine Culture - Final Urine,Clean Catch 06/28/20 15:51 Blood Culture - Preliminary Blood No Growth after 48 hours 06/28/20 04:15 Urine Culture - Final Urine,Voided Citrobacter freundii Enterococcus faecium Assessment and Plan Plan: -Fall and developed a fracture: Pending surgical intervention as mentioned above next and-atrial fibrillation presently rate controlled can you present medications at this time -Urinary tract infection with Citrobacter and enterococcus: Patient is presently on Zosyn and linezolid for these as mentioned above -Acute renal failure secondary to acute tubular necrosis from sepsis and hypotension -hyponatremia etiology is not clear patient is being free water restricted and patient is also getting gentle hydration via IV normal saline as mentioned above nephrology is following the patient -mild metabolic acidosis secondary to acute renal failure -Hypertension -Type 2 diabetes mellitus -Hypothyroidism -Depression -DVT prophylaxis with subcutaneous heparin
[2020-07-01] MEDS ORDERED: CALCIUM GLUCONATE 2 GM in SODIUM CHLORIDE 0.9% 100 ML IVPB ONE (13:30)
--- NOTE | 2020-07-01 13:39 | P.PN ---
Subjective Progress Note Date: 07/01/20 HISTORY OF PRESENT ILLNESS: Patient examined at the bedside with Dr. Chavira. Patient denies chest pain or pressure. Denies shortness of breath. She complains of discomfort in her left hip. INR 1.1. Creatinine 2.38. Sodium 129. Vital signs stable. PHYSICAL EXAM: VITAL SIGNS: Reviewed. GENERAL: Well-developed in no acute distress. NECK: Supple. No JVD or thyromegaly LUNGS: Respirations even and unlabored. Lungs diminished. HEART: Irregular rate and rhythm. S1 and S2 heard. EXTREMITIES: Normal range of motion. No clubbing or cyanosis. Peripheral pulses intact. No lower extremity edema ASSESSMENT: Left hip fracture, s/p fall Chronic persistent atrial fibrillation Hypertension Hyponatremia Acute on chronic kidney disease PLAN: Nephrology following for hyponatremia. Patient placed on fluid resections and Lasix IV 1 dose ordered Continue telemetry monitoring Coumadin remains on hold. Resume postoperatively when cleared by orthopedics Patient to undergo surgical intervention of her left hip fracture today Nurse practitioner note has been reviewed by physician. Signing provider agrees with the documented findings, assessment, and plan of care. Objective - Vital Signs Vital signs: Vital Signs Temp 97.9 F 07/01/20 08:00 Pulse 83 07/01/20 08:00 Resp 18 07/01/20 08:00 BP 114/77 07/01/20 08:00 Pulse Ox 97 07/01/20 08:00 Intake & Output 06/30/20 07/01/20 07/01/20 18:59 06:59 18:59 Intake Total 470 Output Total 1200 450 Balance 470 -1200 -450 Weight 91 kg Intake: Intake, IV Titration 350 Amount Magnesium Sulfate-D5w Pmx 100 1 gm In Dextrose/Water 1 100ml.bag @ 100 mls/hr IVPB Q1H [facility] Rx#: [id number] Sodium Chloride 0.9% 1, 250 000 ml @ 50 mls/hr IV . Q20H [facility] Rx#:[id number] Oral 120 Output: Urine 1200 450 Other: Voiding Method Indwelling Catheter Indwelling Catheter Indwelling Catheter - Labs CBC & Chem 7: 07/01/20 06:45 07/01/20 12:02 Labs: Abnormal Lab Results - Last 24 Hours (Table) 06/30/20 06/30/20 06/30/20 Range/Units 06:55 16:42 20:52 RBC (3.80-5.40) m/uL Hgb (11.4-16.0) gm/dL MCHC (31.0-37.0) g/dL RDW (11.5-15.5) % Neutrophils # (1.3-7.7) k/uL Lymphocytes # (1.0-4.8) k/uL Sodium (137-145) mmol/L Potassium (3.5-5.1) mmol/L Chloride (98-107) mmol/L Carbon Dioxide (22-30) mmol/L BUN (7-17) mg/dL Creatinine (0.52-1.04) mg/dL Glucose (74-99) mg/dL POC Glucose (mg/dL) 169 H 172 H (75-99) mg/dL Calcium (8.4-10.2) mg/dL Free T3 pg/mL 1.8 L (2.8-5.3) pg/ml 07/01/20 07/01/20 07/01/20 Range/Units 06:24 06:45 06:45 RBC 3.62 L (3.80-5.40) m/uL Hgb 11.0 L (11.4-16.0) gm/dL MCHC 30.8 L (31.0-37.0) g/dL RDW 16.2 H (11.5-15.5) % Neutrophils # 9.0 H (1.3-7.7) k/uL Lymphocytes # 0.7 L (1.0-4.8) k/uL Sodium 129 L (137-145) mmol/L Potassium (3.5-5.1) mmol/L Chloride (98-107) mmol/L Carbon Dioxide 17 L (22-30) mmol/L BUN 34 H (7-17) mg/dL Creatinine 2.38 H (0.52-1.04) mg/dL Glucose 165 H (74-99) mg/dL POC Glucose (mg/dL) 174 H (75-99) mg/dL Calcium 8.3 L (8.4-10.2) mg/dL Free T3 pg/mL (2.8-5.3) pg/ml 07/01/20 07/01/20 Range/Units 11:45 12:02 RBC (3.80-5.40) m/uL Hgb (11.4-16.0) gm/dL MCHC (31.0-37.0) g/dL RDW (11.5-15.5) % Neutrophils # (1.3-7.7) k/uL Lymphocytes # (1.0-4.8) k/uL Sodium 134 L (137-145) mmol/L Potassium 2.6 L* (3.5-5.1) mmol/L Chloride 117 H (98-107) mmol/L Carbon Dioxide 15 L (22-30) mmol/L BUN 25 H (7-17) mg/dL Creatinine 1.60 H (0.52-1.04) mg/dL Glucose 103 H (74-99) mg/dL POC Glucose (mg/dL) 131 H (75-99) mg/dL Calcium 5.6 L* (8.4-10.2) mg/dL Free T3 pg/mL (2.8-5.3) pg/ml Microbiology - Last 24 Hours (Table) 06/29/20 13:51 Urine Culture - Final Urine,Clean Catch 06/28/20 15:51 Blood Culture - Preliminary Blood No Growth after 48 hours 06/28/20 04:15 Urine Culture - Final Urine,Voided Citrobacter freundii Enterococcus faecium
[2020-07-01] MEDS: FOLIC ACID 1 MG TAB PO SCH (13:50)
[2020-07-01] MEDS: POTASSIUM CHLORIDE ER 20 MEQ TAB.ER PO SCH ×3 (13:51→17:50)
[2020-07-01 16:48] LABS: Glucose,Whole Blood 192 mg/dL (75-99)
--- NOTE | 2020-07-01 17:49 | PN ---
PROGRESS NOTE DATE OF SERVICE: 07/01/2020 REASON FOR FOLLOWUP: Urinary tract infection. INTERVAL HISTORY: The patient is currently afebrile. The patient's surgery has been put on hold because of low potassium. The patient seems to be slightly upset. The patient denies having any chest pain or shortness of breath or cough. No abdominal pain or diarrhea. PHYSICAL EXAMINATION: On examination, her blood pressure is 114/77 with a pulse of 83, temperature 97.9. She is 97% on room air. General description is an elderly female lying in bed in no distress. RESPIRATORY SYSTEM: Unlabored breathing. Clear to auscultation anteriorly. HEART: S1, S2. Regular rate and rhythm. ABDOMEN: Soft. No tenderness. LABS: Hemoglobin is 11, white count 10.1, BUN of 25, creatinine 1.60. Urine with Citrobacter, Enterococcus faecium. DIAGNOSTIC IMPRESSION AND PLAN: Patient with a complicated urinary tract infection in this patient with a history of recurrent urinary tract infections. Current culture positive for Citrobacter and Enterococcus faecium. Condition. The patient is currently covered with penicillin and Zosyn. Overall looks clean. White count normal. UA will be repeated. Antibiotic will be cut back if overall improvement. Continue with supportive care. MMODL / IJN: [id number] /
[2020-07-01] MEDS: THIAMINE 100 MG TAB PO SCH (17:50)
[2020-07-01] MEDS: LACTOBACILLUS ACIDOPH & BULGAR 1 EACH PACKET PO SCH (17:51)
[2020-07-01] MEDS: HYDROcodone/APAP 5-325MG 1 EACH TAB PO PRN (18:04)
[2020-07-01 18:58] LABS: Calcium 8.9 mg/dL (8.4-10.2); Potassium 3.7 mmol/L (3.5-5.1)
[2020-07-01 21:16] LABS: Glucose,Whole Blood 150 mg/dL (75-99)
[2020-07-01 22:38] LABS: Glucose,Whole Blood 176 mg/dL (75-99)
[2020-07-01] MEDS: HEPARIN SODIUM,PORCINE 5,000 UNIT/ML 1 ML VIAL SQ SCH (23:14)
[2020-07-01] MEDS: MULTIVITAMINS, THERA 1 EACH TAB PO SCH (23:14)
[2020-07-02] MEDS: HYDROCORTISONE SUCCINATE 100 MG/2 ML VIAL IV SCH ×4 (01:39→23:50)
[2020-07-02] MEDS: PIPERACILLIN-TAZOBACTAM 3.375 GM in SODIUM CHLORIDE 0.9% 100 ML IVPB SCH ×3 (01:40→18:18)
[2020-07-02] MEDS: HYDROcodone/APAP 5-325MG 1 EACH TAB PO PRN ×2 (02:11→09:52)
[2020-07-02] MEDS: SODIUM CHLORIDE 0.9% 1,000 ML IV SCH ×3 (03:50→23:57)
[2020-07-02] MEDS: LEVOTHYROXINE 88 MCG TAB PO SCH (05:38)
[2020-07-02 06:49] LABS: Glucose,Whole Blood 214 mg/dL (75-99)
--- NOTE | 2020-07-02 08:29 | P.PN ---
Subjective Progress Note Date: 07/02/20 This is a 74 year-old female who is admitted for left hip fracture. Patient is seen and evaluated at bedside today. Patient denies any new symptoms or complaints today. Objective - Vital Signs Vital signs: Vital Signs Temp 97.9 F 07/02/20 07:00 Pulse 82 07/02/20 07:00 Resp 20 07/02/20 07:00 BP 95/68 07/02/20 07:00 Pulse Ox 93 L 07/02/20 07:00 Intake & Output 07/01/20 07/02/20 07/02/20 18:59 06:59 18:59 Output Total 1200 450 Balance -1200 -450 Output: Urine 1200 450 Other: Voiding Method Indwelling Catheter Indwelling Catheter # Bowel Movements 2 - Exam Patient is lying comfortably in bed in no acute distress. Patient is alert and oriented x3. The left lower extremity is warm and well perfused. Sensation intact. Patient has full range of motion of the left foot and ankle. Skin is intact. Neurovascular status and circulatory status are intact. - Labs CBC & Chem 7: 07/01/20 06:45 07/01/20 18:19 Labs: Abnormal Lab Results - Last 24 Hours (Table) 07/01/20 07/01/20 07/01/20 Range/Units 11:45 12:02 16:46 Sodium 134 L (137-145) mmol/L Potassium 2.6 L* (3.5-5.1) mmol/L Chloride 117 H (98-107) mmol/L Carbon Dioxide 15 L (22-30) mmol/L BUN 25 H (7-17) mg/dL Creatinine 1.60 H (0.52-1.04) mg/dL Glucose 103 H (74-99) mg/dL POC Glucose (mg/dL) 131 H 192 H (75-99) mg/dL Calcium 5.6 L* (8.4-10.2) mg/dL 07/01/20 07/01/20 07/01/20 Range/Units 18:19 21:11 22:36 Sodium 130 L (137-145) mmol/L Potassium (3.5-5.1) mmol/L Chloride (98-107) mmol/L Carbon Dioxide 18 L (22-30) mmol/L BUN 36 H (7-17) mg/dL Creatinine 2.39 H (0.52-1.04) mg/dL Glucose 186 H (74-99) mg/dL POC Glucose (mg/dL) 150 H 176 H (75-99) mg/dL Calcium (8.4-10.2) mg/dL 07/02/20 Range/Units 06:47 Sodium (137-145) mmol/L Potassium (3.5-5.1) mmol/L Chloride (98-107) mmol/L Carbon Dioxide (22-30) mmol/L BUN (7-17) mg/dL Creatinine (0.52-1.04) mg/dL Glucose (74-99) mg/dL POC Glucose (mg/dL) 214 H (75-99) mg/dL Calcium (8.4-10.2) mg/dL Microbiology - Last 24 Hours (Table) 06/28/20 15:51 Blood Culture - Preliminary Blood No Growth after 72 hours Assessment and Plan (1) Closed left hip fracture Current Visit: Yes Status: Acute Code(s): S72.002A - FRACTURE OF UNSP PART OF NECK OF LEFT FEMUR, INIT SNOMED Code(s): 493682418 (2) Fall Current Visit: Yes Status: Acute Code(s): W19.XXXA - UNSPECIFIED FALL, INITIAL ENCOUNTER SNOMED Code(s): 8553054 Plan: 1. The patient's surgery was postponed and 07/01/2020 due to low sodium and low potassium. 2. Appreciate input from medicine and nephrology. 3. Will proceed with left hip hemiarthroplasty once patient is medically ayaka ared.
[2020-07-02 09:28] LABS: Anion Gap 8.8 mmol/L (4.00-12.00); BUN/Creat Ratio 15.38 Ratio (12.00-20.00); Calcium 8.4 mg/dL (8.7-10.3); Carbon Dioxide 18.2 mmol/L (21.6-31.8); Non-African American GFR(CKD) 17.2 (60.0-200.0); Potassium 4.2 mmol/L (3.5-5.5)
[2020-07-02 09:29] LABS: Glucose,Whole Blood 150 mg/dL (75-99)
[2020-07-02 09:34] LABS: INR 1.12 (0.90-1.11); Prothrombin Time 11.9 sec (9.9-11.9)
[2020-07-02] MEDS: BALSALAZIDE DISODIUM 750 MG CAPSULE PO SCH ×3 (09:40→17:57)
[2020-07-02] MEDS: INSULIN ASPART (NovoLOG) 100 UNIT/ML VIAL SQ SCH ×4 (09:41→21:19)
[2020-07-02] MEDS: PREGABALIN 100 MG CAP PO SCH ×2 (09:48→21:19)
[2020-07-02] MEDS: allopurinoL 100 MG TAB PO SCH ×3 (09:48→21:19)
[2020-07-02] MEDS: HEPARIN SODIUM,PORCINE 5,000 UNIT/ML 1 ML VIAL SQ SCH ×2 (09:51→21:20)
[2020-07-02] MEDS: METOPROLOL TARTRATE 25 MG TAB PO SCH ×3 (09:52→21:19)
[2020-07-02] MEDS: PANTOPRAZOLE 40 MG/10 ML VIAL IVP SCH ×2 (09:54→21:19)
--- NOTE | 2020-07-02 10:16 | P.PN ---
Subjective Progress Note Date: 07/02/20 This is a pleasant 74-year-old female with history of persistent atrial fibrillation who follows with Dr. FLACA Riggs in the office. Patient also has a history of chronic kidney disease, history of UTI, recent cold low vesicle fistula repair. She presented to the hospital after a fall and fracture of the left hip. She was supposed to undergo surgery yesterday, this was postponed because of abnormality in her sodium levels. Patient was on Coumadin for anticoagulation, this is currently on hold because of the anticipated surgery, she is on heparin subcu twice a day at this time. The patient was seen and examined this morning resting comfortably in bed, still having some discomfort in the left hip area. Breathing is stable. Blood pressure 120/70 with a heart rate in the 80s, 93% on room air. Sodium 131, potassium 4.2, BUN 40, creatinine 2.6. Magnesium 2.0. Patient did have an echo in April of this year which revealed a preserved ventricular size and systolic function. Objective - Vital Signs Vital signs: Vital Signs Temp 97.9 F 07/02/20 07:00 Pulse 85 07/02/20 09:44 Resp 20 07/02/20 07:00 BP 119/74 07/02/20 09:44 Pulse Ox 93 L 07/02/20 07:00 Intake & Output 07/01/20 07/02/20 07/02/20 18:59 06:59 18:59 Output Total 1200 450 Balance -1200 -450 Output: Urine 1200 450 Other: Voiding Method Indwelling Catheter Indwelling Catheter # Bowel Movements 2 - Exam PHYSICAL EXAMINATION: GENERAL: 74-year-old female in no acute distress at the time of my examination HEENT: Head is atraumatic, normocephalic. Pupils equal, round. Sclera anicteric. Conjunctiva are clear. Mucous membranes of the mouth are moist. Neck is supple. There is no elevated jugular venous pressure. No carotid bruit is heard. HEART EXAMINATION: Heart S1 and S2 irregularly irregular with systolic murmur is heard CHEST EXAMINATION: Lungs are clear to auscultation and precussion. No chest wall tenderness is noted on palpation or with deep breathing. ABDOMEN: Soft, nontender. Bowel sounds are heard. No organomegaly noted. EXTREMITIES: 2+ peripheral pulses with no evidence of peripheral edema and no calf tenderness noted. NEUROLOGIC patient is awake, alert and oriented 3 . . - Labs CBC & Chem 7: 07/01/20 06:45 07/02/20 05:53 Labs: Abnormal Lab Results - Last 24 Hours (Table) 07/01/20 07/01/20 07/01/20 Range/Units 11:45 12:02 16:46 INR (0.90-1.11) Sodium 134 L (137-145) mmol/L Potassium 2.6 L* (3.5-5.1) mmol/L Chloride 117 H (98-107) mmol/L Carbon Dioxide 15 L (22-30) mmol/L BUN 25 H (7-17) mg/dL Creatinine 1.60 H (0.52-1.04) mg/dL Est GFR (CKD-EPI)AfAm (60.0-200.0) Est GFR (CKD-EPI)NonAf (60.0-200.0) Glucose 103 H (74-99) mg/dL POC Glucose (mg/dL) 131 H 192 H (75-99) mg/dL Calcium 5.6 L* (8.4-10.2) mg/dL 07/01/20 07/01/20 07/01/20 Range/Units 18:19 21:11 22:36 INR (0.90-1.11) Sodium 130 L (137-145) mmol/L Potassium (3.5-5.1) mmol/L Chloride (98-107) mmol/L Carbon Dioxide 18 L (22-30) mmol/L BUN 36 H (7-17) mg/dL Creatinine 2.39 H (0.52-1.04) mg/dL Est GFR (CKD-EPI)AfAm (60.0-200.0) Est GFR (CKD-EPI)NonAf (60.0-200.0) Glucose 186 H (74-99) mg/dL POC Glucose (mg/dL) 150 H 176 H (75-99) mg/dL Calcium (8.4-10.2) mg/dL 07/02/20 07/02/20 07/02/20 Range/Units 05:53 05:53 06:47 INR 1.12 H (0.90-1.11) Sodium 131 L (137-145) mmol/L Potassium (3.5-5.1) mmol/L Chloride (98-107) mmol/L Carbon Dioxide 18.2 L (22-30) mmol/L BUN 40.0 H (7-17) mg/dL Creatinine 2.6 H (0.52-1.04) mg/dL Est GFR (CKD-EPI)AfAm 20.0 L (60.0-200.0) Est GFR (CKD-EPI)NonAf 17.2 L (60.0-200.0) Glucose 160 H (74-99) mg/dL POC Glucose (mg/dL) 214 H (75-99) mg/dL Calcium 8.4 L (8.4-10.2) mg/dL 07/02/20 Range/Units 09:28 INR (0.90-1.11) Sodium (137-145) mmol/L Potassium (3.5-5.1) mmol/L Chloride (98-107) mmol/L Carbon Dioxide (22-30) mmol/L BUN (7-17) mg/dL Creatinine (0.52-1.04) mg/dL Est GFR (CKD-EPI)AfAm (60.0-200.0) Est GFR (CKD-EPI)NonAf (60.0-200.0) Glucose (74-99) mg/dL POC Glucose (mg/dL) 150 H (75-99) mg/dL Calcium (8.4-10.2) mg/dL Microbiology - Last 24 Hours (Table) 06/28/20 15:51 Blood Culture - Preliminary Blood No Growth after 72 hours Assessment and Plan Plan: Assessment and plan #1 fall with evidence of left hip fracture #2 persistent atrial fibrillation #3 status post recent colovesical fistula repair #4 chronic kidney disease #5 history of UTI Plan The patient's Coumadin continues to be on hold, she is on subcu heparin twice a day. She will need to be resumed on oral anticoagulation postprocedure. Heart rate is remaining stable in the 70s to 80s. We will continue to follow. DNP note has been reviewed, I agree with a documented findings and plan of care. Patient was seen and examined.
--- NOTE | 2020-07-02 10:40 | P.PN ---
Subjective patient is seen in follow-up for acute kidney injury and chronic kidney disease. Patient is chronic kidney disease stage III with baseline creatinine near 1.5. Renal function a little worse today from diuresis. Nonoliguric. No vomiting or diarrhea. no chest pain or shortness of breath. No changes overnight. Sodium level 131 this morning. Vital signs are stable. General: The patient appeared well nourished and normally developed. HEENT: Head exam is unremarkable. Neck is without jugular venous distension. LUNGS: Lungs are clear to auscultation and percussion. Breath sounds decreased. HEART: Rate and Rhythm are regular. ABDOMEN: soft, nontender. EXTREMITITES: 1+ edema. Objective - Vital Signs Vital signs: Vital Signs Temp 97.9 F 07/02/20 07:00 Pulse 85 07/02/20 09:44 Resp 20 07/02/20 07:00 BP 119/74 07/02/20 09:44 Pulse Ox 93 L 07/02/20 07:00 Intake & Output 07/01/20 07/02/20 07/02/20 18:59 06:59 18:59 Output Total 1200 450 Balance -1200 -450 Output: Urine 1200 450 Other: Voiding Method Indwelling Catheter Indwelling Catheter # Bowel Movements 2 - Labs CBC & Chem 7: 07/01/20 06:45 07/02/20 05:53 Labs: Abnormal Lab Results - Last 24 Hours (Table) 07/01/20 07/01/20 07/01/20 Range/Units 11:45 12:02 16:46 INR (0.90-1.11) Sodium 134 L (137-145) mmol/L Potassium 2.6 L* (3.5-5.1) mmol/L Chloride 117 H (98-107) mmol/L Carbon Dioxide 15 L (22-30) mmol/L BUN 25 H (7-17) mg/dL Creatinine 1.60 H (0.52-1.04) mg/dL Est GFR (CKD-EPI)AfAm (60.0-200.0) Est GFR (CKD-EPI)NonAf (60.0-200.0) Glucose 103 H (74-99) mg/dL POC Glucose (mg/dL) 131 H 192 H (75-99) mg/dL Calcium 5.6 L* (8.4-10.2) mg/dL 07/01/20 07/01/20 07/01/20 Range/Units 18:19 21:11 22:36 INR (0.90-1.11) Sodium 130 L (137-145) mmol/L Potassium (3.5-5.1) mmol/L Chloride (98-107) mmol/L Carbon Dioxide 18 L (22-30) mmol/L BUN 36 H (7-17) mg/dL Creatinine 2.39 H (0.52-1.04) mg/dL Est GFR (CKD-EPI)AfAm (60.0-200.0) Est GFR (CKD-EPI)NonAf (60.0-200.0) Glucose 186 H (74-99) mg/dL POC Glucose (mg/dL) 150 H 176 H (75-99) mg/dL Calcium (8.4-10.2) mg/dL 07/02/20 07/02/20 07/02/20 Range/Units 05:53 05:53 06:47 INR 1.12 H (0.90-1.11) Sodium 131 L (137-145) mmol/L Potassium (3.5-5.1) mmol/L Chloride (98-107) mmol/L Carbon Dioxide 18.2 L (22-30) mmol/L BUN 40.0 H (7-17) mg/dL Creatinine 2.6 H (0.52-1.04) mg/dL Est GFR (CKD-EPI)AfAm 20.0 L (60.0-200.0) Est GFR (CKD-EPI)NonAf 17.2 L (60.0-200.0) Glucose 160 H (74-99) mg/dL POC Glucose (mg/dL) 214 H (75-99) mg/dL Calcium 8.4 L (8.4-10.2) mg/dL 07/02/20 Range/Units 09:28 INR (0.90-1.11) Sodium (137-145) mmol/L Potassium (3.5-5.1) mmol/L Chloride (98-107) mmol/L Carbon Dioxide (22-30) mmol/L BUN (7-17) mg/dL Creatinine (0.52-1.04) mg/dL Est GFR (CKD-EPI)AfAm (60.0-200.0) Est GFR (CKD-EPI)NonAf (60.0-200.0) Glucose (74-99) mg/dL POC Glucose (mg/dL) 150 H (75-99) mg/dL Calcium (8.4-10.2) mg/dL Microbiology - Last 24 Hours (Table) 06/28/20 15:51 Blood Culture - Preliminary Blood No Growth after 72 hours Assessment and Plan Plan: assessment: 1. Acute kidney injury secondary to ATN secondary to infection and hemodynamic instability. renal function a little worse due to diuresis. Creatinine 2.6 today. 2. Status post fall with acute left femur fracture. Orthopedic surgery following. 3. Chronic kidney disease stage III with baseline creatinine near 1.5. 4. A. fib with RVR status post Cardizem drip. 5. Metabolic acidosis secondary to acute kidney injury and GI losses. 6. UTI maintained on antibiotics. Infectious disease following. 7. Chronic diastolic CHF. 8. Hypokalemia secondary to intracellular shifting from IV bicarb. better post replacement. 9. Hyponatremia, hypervolemic. better. 10. Hypomagnesemia from poor intake. improved post replacement. 11. Volume overload. better. Plan: maintain 1500 mL fluid restriction. Encourage oral intake, particularly protein. Add oral sodium bicarbonate. Hold off on Lasix today. Continue to monitor renal function and urine output. Scheduled for left hip repair today.
[2020-07-02 11:44] LABS: Glucose,Whole Blood 141 mg/dL (75-99)
--- NOTE | 2020-07-02 11:50 | P.PN ---
Subjective 74-year-old female admitted for fall and left hip fracture. Patient is presently broad-spectrum antibiotics. Patient is supposed to undergo surgical intervention for her fractured today but patient is hyponatremic because of which patient didn't undergo surgery today. Nephrology is following the patient patient does have acute renal failure as well patient is receiving IV fluids at 50 mL per hour along with free water restriction as per nephrology. Nephrology believes elevation in creatinine which is a 2.3 today worse than yesterday and the same as admission is secondary to acute tubular necrosis from hypotension patient does have metabolic acidosis from that. Patient is presently on linezolid and Zosyn for enterococcus ECM and Citrobacter respectively. Patient is high risk for nephrotoxicity because of which patient is a linezolid. 07/02/2020 Patient clinically doing well but the her serum creatinine continued to get worse nephrology is following the patient and patient the serum sodium is 131 and patient should be able to go for surgery today in medically stable to go for surgery. Acute renal failure was believed to be secondary to acute tubular necrosis from infection and hypotension admission, patient blood pressures prior presently stable but expect to have perioperative hypotension and patient was closely monitored Constitutional: Denied any fatigue denied any fever. Cardio vascular: denied any chest pain, palpitations Gastrointestinal denied any nausea vomiting Pulmonary: Denied any shortness of breath cough Neurologic denied any new focal deficits All inpatient medications were reviewed and appropriate changes in these medications as dictated in the interval history and assessment and plan. Objective - Vital Signs Vital signs: Vital Signs Temp 97.9 F 07/02/20 07:00 Pulse 85 07/02/20 09:44 Resp 20 07/02/20 07:00 BP 119/74 07/02/20 09:44 Pulse Ox 93 L 07/02/20 07:00 Intake & Output 07/01/20 07/02/20 07/02/20 18:59 06:59 18:59 Output Total 1200 450 Balance -1200 -450 Output: Urine 1200 450 Other: Voiding Method Indwelling Catheter Indwelling Catheter Indwelling Catheter # Bowel Movements 2 - Exam PHYSICAL EXAMINATION: GENERAL: The patient is alert and oriented x3, not in any acute distress. Well developed, well nourished. HEENT: Pupils are round and equally reacting to light. EOMI. No scleral icterus. No conjunctival pallor. Normocephalic, atraumatic. No pharyngeal erythema. No thyromegaly. CARDIOVASCULAR: S1 and S2 present. No murmurs, rubs, or gallops. PULMONARY: Chest is clear to auscultation, no wheezing or crackles. ABDOMEN: Soft, nontender, nondistended, normoactive bowel sounds. No palpable organomegaly. MUSCULOSKELETAL: No joint swelling or deformity. EXTREMITIES: No cyanosis, clubbing, or pedal edema. NEUROLOGICAL: Gross neurological examination did not reveal any focal deficits. SKIN: No rashes. - Labs CBC & Chem 7: 07/01/20 06:45 07/02/20 05:53 Labs: Abnormal Lab Results - Last 24 Hours (Table) 07/01/20 07/01/20 07/01/20 Range/Units 11:45 12:02 16:46 INR (0.90-1.11) Sodium 134 L (137-145) mmol/L Potassium 2.6 L* (3.5-5.1) mmol/L Chloride 117 H (98-107) mmol/L Carbon Dioxide 15 L (22-30) mmol/L BUN 25 H (7-17) mg/dL Creatinine 1.60 H (0.52-1.04) mg/dL Est GFR (CKD-EPI)AfAm (60.0-200.0) Est GFR (CKD-EPI)NonAf (60.0-200.0) Glucose 103 H (74-99) mg/dL POC Glucose (mg/dL) 131 H 192 H (75-99) mg/dL Calcium 5.6 L* (8.4-10.2) mg/dL 07/01/20 07/01/20 07/01/20 Range/Units 18:19 21:11 22:36 INR (0.90-1.11) Sodium 130 L (137-145) mmol/L Potassium (3.5-5.1) mmol/L Chloride (98-107) mmol/L Carbon Dioxide 18 L (22-30) mmol/L BUN 36 H (7-17) mg/dL Creatinine 2.39 H (0.52-1.04) mg/dL Est GFR (CKD-EPI)AfAm (60.0-200.0) Est GFR (CKD-EPI)NonAf (60.0-200.0) Glucose 186 H (74-99) mg/dL POC Glucose (mg/dL) 150 H 176 H (75-99) mg/dL Calcium (8.4-10.2) mg/dL 07/02/20 07/02/20 07/02/20 Range/Units 05:53 05:53 06:47 INR 1.12 H (0.90-1.11) Sodium 131 L (137-145) mmol/L Potassium (3.5-5.1) mmol/L Chloride (98-107) mmol/L Carbon Dioxide 18.2 L (22-30) mmol/L BUN 40.0 H (7-17) mg/dL Creatinine 2.6 H (0.52-1.04) mg/dL Est GFR (CKD-EPI)AfAm 20.0 L (60.0-200.0) Est GFR (CKD-EPI)NonAf 17.2 L (60.0-200.0) Glucose 160 H (74-99) mg/dL POC Glucose (mg/dL) 214 H (75-99) mg/dL Calcium 8.4 L (8.4-10.2) mg/dL 07/02/20 07/02/20 Range/Units 09:28 11:43 INR (0.90-1.11) Sodium (137-145) mmol/L Potassium (3.5-5.1) mmol/L Chloride (98-107) mmol/L Carbon Dioxide (22-30) mmol/L BUN (7-17) mg/dL Creatinine (0.52-1.04) mg/dL Est GFR (CKD-EPI)AfAm (60.0-200.0) Est GFR (CKD-EPI)NonAf (60.0-200.0) Glucose (74-99) mg/dL POC Glucose (mg/dL) 150 H 141 H (75-99) mg/dL Calcium (8.4-10.2) mg/dL Microbiology - Last 24 Hours (Table) 06/28/20 15:51 Blood Culture - Preliminary Blood No Growth after 72 hours Assessment and Plan Plan: -Fall and developed a fracture: Pending surgical intervention as mentioned above , patient appears to be moderate risk for surgery -atrial fibrillation presently rate controlled continue with present medications at this time -Urinary tract infection with Citrobacter and enterococcus: Patient is presently on Zosyn and linezolid for these as mentioned above -Acute renal failure secondary to acute tubular necrosis from sepsis and hypotension -hyponatremia etiology is not clear patient is being free water restricted and patient is also getting gentle hydration via IV normal saline as mentioned above nephrology is following the patient. Serum sodium did improve today -mild metabolic acidosis secondary to acute renal failure -Hypertension -Type 2 diabetes mellitus -Hypothyroidism -Depression -DVT prophylaxis with subcutaneous heparin
--- NOTE | 2020-07-02 12:15 | PN ---
PROGRESS NOTE DATE OF SERVICE: 07/02/2020 REASON FOR FOLLOWUP: Complicated urinary tract infection. INTERVAL HISTORY: The patient is currently afebrile. Patient is breathing comfortably. She is currently waiting for surgery. No chest pain, shortness of breath. No abdominal pain, no diarrhea. PHYSICAL EXAMINATION: Her blood pressure is 119/75 with a pulse of 85, temperature 97.9. She is 93% on room air. General description is an elderly female, lying in bed in no distress. RESPIRATORY SYSTEM: Unlabored breathing, clear to auscultation anteriorly. HEART: S1, S2. Regular rate and rhythm. ABDOMEN: Soft, no tenderness. LABS: BUN of 40, creatinine 2.6. DIAGNOSTIC IMPRESSION AND PLAN: Patient with a fever in this patient who did have history of recurrent UTI, urine with Citrobacter, Enterococcus patient. Patient is covered with Zosyn to continue and monitor clinical course closely. MMODL / IJN: [id number] /
[2020-07-02] MEDS: FOLIC ACID 1 MG TAB PO SCH (12:35)
[2020-07-02] MEDS: THIAMINE 100 MG TAB PO SCH (12:38)
[2020-07-02] MEDS: LINEZOLID 600 MG in DEXTROSE/WATER 1 300ML.BAG IVPB SCH ×2 (12:51→23:50)
[2020-07-02] MEDS ORDERED: IV FLUID CONTINUATION 1,000 ML IV ONE ×2 (13:08)
[2020-07-02 13:40] LABS: Glucose,Whole Blood 383 mg/dL (75-99)
[2020-07-02 13:44] LABS: Glucose,Whole Blood 188 mg/dL (75-99)
[2020-07-02] MEDS ORDERED: LACTATED RINGERS 1,000 ML IV ONE ×2 (13:46)
[2020-07-02] MEDS ORDERED: ONDANSETRON 4 MG/2 ML VIAL ONE (13:49)
[2020-07-02] MEDS ORDERED: DEXAMETHASONE SOD PHOSPHATE 10 MG/ML 1 ML VIAL IV ONE (13:50)
[2020-07-02] MEDS ORDERED: ONDANSETRON 4 MG/2 ML VIAL IVP ONE (13:51)
[2020-07-02] MEDS: SODIUM BICARBONATE TAB 650 MG TAB PO SCH ×2 (14:00→21:19)
[2020-07-02] MEDS ORDERED: SUCCINYLCHOLINE CHLORIDE 100 MG/5 ML SYR IV ONE (14:29)
[2020-07-02] MEDS ORDERED: PHENYLEPHRINE-0.9% NACL SYG 1 MG/10 ML SYRINGE ONE (14:29)
[2020-07-02] MEDS ORDERED: HYDROmorphone (PF) 1 MG/ML ONE (14:29)
[2020-07-02] MEDS ORDERED: ePHEDrine SULFATE/0.9% NACL/PF 50 MG/5 ML SYRINGE IV ONE (14:29)
[2020-07-02] MEDS ORDERED: fentaNYL (PF) 50 MCG/ML 2 ML AMP ONE (14:29)
[2020-07-02] MEDS ORDERED: PROPOFOL 10 MG/ML 20 ML VIAL IV ONE (14:29)
[2020-07-02] MEDS ORDERED: LIDOCAINE 1% INJ 10MG/ML (20 ML MDV) ONE (14:29)
[2020-07-02] MEDS ORDERED: traMADol 50 MG TAB PO PRN (16:17)
[2020-07-02] MEDS ORDERED: NALOXONE 0.4 MG/ML 1 ML VIAL IV PRN (16:17)
[2020-07-02] MEDS ORDERED: HYDROmorphone 0.5 MG/0.5 ML SYRINGE IVP PRN (16:17)
[2020-07-02] MEDS ORDERED: MAGNESIUM HYDROXIDE 2,400 MG/10 ML CUP PO PRN (16:17)
[2020-07-02] MEDS ORDERED: BENZOCAINE/MENTHOL LOZENG 1 EACH LOZENGE MUCOUS MEM PRN (16:17)
--- NOTE | 2020-07-02 16:43 | P.OP ---
Date of Procedure: 07/02/20 Preoperative Diagnosis: Left hip femoral neck fracture, acute displaced due to fall Postoperative Diagnosis: Same Anesthesia: GETA Pathology: other (Left femoral head and reamings to pathology) Condition: stable Disposition: PACU Description of Procedure: Preoperative diagnosis: Left hip femoral neck fracture, acute displaced due to fall Postoperative diagnosis: Same Procedure: Left Hip hemiarthroplasty Surgeon: Dr. Ofelia Claudio.: Melanie Song who is present that the entire the case persistence during positioning dissection exposure placement of hardware and closure Anesthesia: Gen. Estimated blood loss: approximate 100 mL Components implanted: [employer] Taperloc fracture stem size 4 with a 47 mm head and +4 neck Disposition: To recovery room in good stable condition Operative indications The patient sustained a injury and suffered a femoral neck fracture which was displaced and angulated. she has significant medical history including post polio syndrome with left sided insufficiency. She has atrial fibrillation and had been on Coumadin. She also has history of a colovesicular fistula and has chronic urinary tract issues. After she had fallen she was admitted to the hospital and she had active UTI and her INR was 2.0. She worked with medicine service to clear up her urinary tract issues and normalize her coagulation. She had renal insufficiency and was unable to be medically cleared for surgery until today. Cardiology has also been involved in the case and following her closely in terms of surgical risk as well. We were involved in the case in regard to his hip fracture. After evaluation it was determined that they would be a candidate for hip hemiarthroplasty via surgical intervention. This would give them the best chance of mobilization and ambulation. We discussed the range of treatment options from conservative to surgical. They elected proceed with surgical intervention. We answered their questions to the best of our ability healing which they can understand. They signed an informed consent.Due to patient's multiple medical issues, coagulation status, urinary tract infection, potassium issues and renal insufficiency issues the earliest were able to pursue surgery was today. I discussed the risk associated with the patient's injury and with the time lapse for medical clearance with the patient with the family and they seem to understand. Operative summary After obtaining informed consent evaluation by anesthesia, preoperative evaluation and clearance for medical service, the patient was identified and prepped Peoples area and the surgical site was marked. There brought to the operating room where the given appropriate anesthesia by the anesthesia department in standard fashion without any complications. Once the anesthesia was established we were able to position the patient. There placed in a lateral decubitus position with the operative side up on the left being careful to pad any bony prominences and pressure points and place a excellent roll appropriately. The airway and C-spine was monitored continuously. Once patient was well positioned lower extremity was prepped and draped in normal standard sterile fashion. An appropriate keystone protocol and timeout was completed and were able to proceed with surgery. A curvilinear incision was established over the greater trochanter. Dissection was taken down to the tensor fascia pamela which was split in line with its fibers and extended proximally into the gluteal fibers. A Charnley retractor was established. The trochanteric bursa was inflamed and removed. I was able to then dissect down off the posterior aspect of the greater trochanter taking the piriformis tendon and the posterior capsule in one full-thickness flap and tacking it with suture. This expose the fracture at the femoral neck which was easily identified. A guide was used to establish the appropriate femoral neck cut and a bone-cuttin g saw was used to establish the femoral neck cut and good alignment and good position. All the bony fragments were removed. I was then able to use a corkscrew device to remove the femoral head from the acetabulum. Any loose fragments in the acetabulum were removed. note was made of somewhat frail tissues from her skin to her musculature as well as her capsule and bone. The femoral head was measured for the appropriate size implant and then passed off for pathology. Appropriate retractors were placed and I established a lateral box cut chisel. I then used a starting reamer to establish the femoral canal area I then sequentially reamed with sequential reamers until we had good bony chatter distally. With this we then started to broach with sequential broaches to the appropriate sized to we had good fit and fill. There is no evidence any fracture in the possible femur. With the appropriate size broach well seated and stable I placed the trial neck and head. A gentle reduction was performed to get good reduction. The hip was taken through a good range of motion and found to be stable in the position of sleep and through a range of motion. It had a good shuck test. We were able to then dislocate the trial prosthesis. The broach was found to remain stable. It was then removed. The wound was copiously irrigated and suctioned dry with pulsatile lavage. The appropriate size femoral stem of a #4 was chosen and positioned and placed in good alignment and good position with excellent fit and fill seated appropriately over the calcar. It was checked and found to be stable. The trunnion was cleaned and dried the femoral head was then positioned over the femoral neck malleted in position checked and found to be stable With a 47 mm head. The hip prosthesis was then gently reduced back into the acetabulum and found to have excellent position and excellent stability and excellent range of motion with stability. There is no evidence of dislocation or fracture. The wound was copiously irrigated and suctioned dry. We are able to proceed with closure. The piriformis and posterior capsule were reapproximated to the posterior aspect of the greater trochanter with transosseous stitches. The wound was irrigated and suctioned dry. The fascia was closed with #2 Quill for watertight closure. Subcutaneous tissue was irrigated and suctioned dry. Subcu tissues closed with 2-0 Vicryl subcuticular tissue was closed with 30 Quill. Wound is clean and dried and dressed with Dermab[place] waterproof [place] dressing tape. Drapes were broken down, the hip was held in stable position, and an abduction pillow was placed. The patient was then transferred back to their hospital bed being careful to maintain the hip and C-spine alignment and airway. Once stable to patient was transferred back to the postanesthesia care unit to be readmitted for pain control and DVT prophylaxis medical management and monitoring and mobilization we will continue follow patient closely throughout their postoperative course.
[2020-07-02 16:46] LABS: Glucose,Whole Blood 176 mg/dL (75-99)
[2020-07-02 17:06] LABS: Basophils % (A) 0 %; Eosinophils % (A) 0 %; HCT 37.7 % (34.0-46.0); HGB 11.3 gm/dL (11.4-16.0); Hypochromasia Marked; Lymphocytes # (A) 0.7 k/uL (1.0-4.8); Lymphocytes % (A) 7 %; MCH 30.9 pg (25.0-35.0); MCV 103.2 fL (80.0-100.0); Macrocytosis Moderate; Mean Platelet Volume 12.3; Monocytes # (A) 0.2 k/uL (0-1.0); Monocytes % (A) 2 %; Neutrophils % (A) 91 %; Platelet Count 160 k/uL (150-450); Poikilocytosis Slight; RBC 3.65 m/uL (3.80-5.40); RDW 15.8 % (11.5-15.5)
[2020-07-02 17:23] LABS: Poikilocytosis (M) Present
--- NOTE | 2020-07-02 17:24 | XR ---
EXAMINATION TYPE: XR Hip Limited LT DATE OF EXAM: 07/02/2020 CLINICAL HISTORY: Post left hip hemiarthroplasty for fracture. TECHNIQUE: Single AP portable view of left hip is obtained immediately postoperatively. COMPARISON: Left hip radiograph 06/27/2020 FINDINGS: Metallic hardware from left hip arthroplasty is seen and appears satisfactory in alignment and position. There is evidence of recent surgery with subcutaneous gas noted. Left pelvic surgical clips. IMPRESSION: Metallic hardware from left hip arthroplasty is satisfactory in position.
[2020-07-02 17:40] LABS: Glucose,Whole Blood 217 mg/dL (75-99)
[2020-07-02] MEDS: LACTOBACILLUS ACIDOPH & BULGAR 1 EACH PACKET PO SCH (17:56)
[2020-07-02] MEDS ORDERED: WARFARIN 2 MG TAB PO ONE (18:00)
[2020-07-02 20:37] LABS: Glucose,Whole Blood 155 mg/dL (75-99)
[2020-07-02] MEDS: MULTIVITAMINS, THERA 1 EACH TAB PO SCH (21:19)
[2020-07-03] MEDS: LEVOTHYROXINE 88 MCG TAB PO SCH (05:40)
[2020-07-03] MEDS: PIPERACILLIN-TAZOBACTAM 3.375 GM in SODIUM CHLORIDE 0.9% 100 ML IVPB SCH ×3 (05:40→22:27)
[2020-07-03 07:40] LABS: Glucose,Whole Blood 185 mg/dL (75-99)
[2020-07-03] MEDS: METOPROLOL TARTRATE 25 MG TAB PO SCH ×3 (08:29→22:05)
[2020-07-03] MEDS: INSULIN ASPART (NovoLOG) 100 UNIT/ML VIAL SQ SCH ×4 (08:29→20:58)
[2020-07-03] MEDS: HYDROCORTISONE SUCCINATE 100 MG/2 ML VIAL IV SCH ×3 (08:30→23:28)
[2020-07-03] MEDS: allopurinoL 100 MG TAB PO SCH (08:30)
[2020-07-03] MEDS: FOLIC ACID 1 MG TAB PO SCH (08:30)
[2020-07-03] MEDS: SODIUM BICARBONATE TAB 650 MG TAB PO SCH ×2 (08:30→20:57)
[2020-07-03] MEDS: SENNOSIDES-DOCUSATE SODIUM 1 EACH TAB PO SCH (08:30)
[2020-07-03] MEDS: PANTOPRAZOLE 40 MG/10 ML VIAL IVP SCH (08:30)
[2020-07-03] MEDS: PREGABALIN 100 MG CAP PO SCH ×2 (08:30→20:57)
[2020-07-03] MEDS: HEPARIN SODIUM,PORCINE 5,000 UNIT/ML 1 ML VIAL SQ SCH ×2 (08:30→20:57)
[2020-07-03] MEDS: THIAMINE 100 MG TAB PO SCH (08:30)
[2020-07-03] MEDS: BALSALAZIDE DISODIUM 750 MG CAPSULE PO SCH ×3 (08:34→17:27)
[2020-07-03 09:18] LABS: INR 1.18 (0.90-1.11); Prothrombin Time 12.5 sec (9.9-11.9)
--- NOTE | 2020-07-03 09:38 | P.PN ---
Progress Note - Text Progress Note Date: 07/03/20 Postoperative day #1 Patient is seen and examined today at bedside. The patient has some pain around the surgical site around her hipas expected. she is sitting up in a chair and eating her breakfast. She denies any nausea or vomiting. She denies any numbness tingling in her lower extremities. Pain is being controlled with medication. Physical Exam Afebrile with stable vital signs Abdomen is soft nontender. Chest has good excursion deep and space expiration The incision site is clean dry and intact. No erythema there is no purulence.her thigh and calf is soft and nontender. Extremities have not had neurologic change from prior to surgery.she has sustained dorsal flexion plantar flexion and EHL intact Calves and thighs were soft nontender without evidence of DVT. Assessment/Plan Postoperative day #1 status post left hip hemiarthroplasty for an acute left femoral neck fracture due to a fall Patient is progressing as expected from the surgery. she has been up with therapy and is sitting up in a chair comfortably which is encouraging. It is okay for her to try weight-bear as tolerated on left leg with therapy. We will continue to increase the patient's mobilization with therapy. We will continue pain control with oral or IV medications. she can resume her normal Coumadin dose per medicine. She is continuing treatment terms of her UTI and renal insufficiency. We'll continue to follow patient closely.
[2020-07-03 09:45] LABS: African American GFR (CKD) 19.1 (60.0-200.0); Anion Gap 10.2 mmol/L (4.00-12.00); BUN/Creat Ratio 16.67 Ratio (12.00-20.00); Calcium 7.7 mg/dL (8.7-10.3); Carbon Dioxide 16.8 mmol/L (21.6-31.8); Magnesium 2.1 mg/dL (1.5-2.4); Non-African American GFR(CKD) 16.5 (60.0-200.0); Potassium 4.2 mmol/L (3.5-5.5)
--- NOTE | 2020-07-03 09:56 | P.PN ---
Subjective 74-year-old female admitted for fall and left hip fracture. Patient is presently broad-spectrum antibiotics. Patient is supposed to undergo surgical intervention for her fractured today but patient is hyponatremic because of which patient didn't undergo surgery today. Nephrology is following the patient patient does have acute renal failure as well patient is receiving IV fluids at 50 mL per hour along with free water restriction as per nephrology. Nephrology believes elevation in creatinine which is a 2.3 today worse than yesterday and the same as admission is secondary to acute tubular necrosis from hypotension patient does have metabolic acidosis from that. Patient is presently on linezolid and Zosyn for enterococcus ECM and Citrobacter respectively. Patient is high risk for nephrotoxicity because of which patient is a linezolid. 07/02/2020 Patient clinically doing well but the her serum creatinine continued to get worse nephrology is following the patient and patient the serum sodium is 131 and patient should be able to go for surgery today in medically stable to go for surgery. Acute renal failure was believed to be secondary to acute tubular necrosis from infection and hypotension admission, patient blood pressures prior presently stable but expect to have perioperative hypotension and patient was closely monitored 07/03/2020 Patient is postoperative day 1. Less left hip hemiarthroplasty. Patient is having some pain in the surgical site area no other significant abnormality is a do not have any labs available from today at Constitutional: Denied any fatigue denied any fever. Cardio vascular: denied any chest pain, palpitations Gastrointestinal denied any nausea vomiting Pulmonary: Denied any shortness of breath cough Neurologic denied any new focal deficits All inpatient medications were reviewed and appropriate changes in these medications as dictated in the interval history and assessment and plan. Objective - Vital Signs Vital signs: Vital Signs Temp 98.3 F 07/03/20 07:00 Pulse 80 07/03/20 08:00 Resp 18 07/03/20 08:00 BP 84/53 07/03/20 07:00 Pulse Ox 98 07/03/20 07:00 Intake & Output 07/02/20 07/03/20 07/03/20 18:59 06:59 18:59 Intake Total 825 500 Output Total 600 800 Balance 225 -300 Intake: IV 825 Oral 500 Output: Urine 500 800 Estimated Blood Loss 100 Other: Voiding Method Indwelling Catheter Indwelling Catheter Indwelling Catheter - Exam PHYSICAL EXAMINATION: GENERAL: The patient is alert and oriented x3, not in any acute distress. Well developed, well nourished. HEENT: Pupils are round and equally reacting to light. EOMI. No scleral icterus. No conjunctival pallor. Normocephalic, atraumatic. No pharyngeal erythema. No thyromegaly. CARDIOVASCULAR: S1 and S2 present. No murmurs, rubs, or gallops. PULMONARY: Chest is clear to auscultation, no wheezing or crackles. ABDOMEN: Soft, nontender, nondistended, normoactive bowel sounds. No palpable organomegaly. MUSCULOSKELETAL: Deferred to arthritic surgery EXTREMITIES: No cyanosis, clubbing, or pedal edema. NEUROLOGICAL: Gross neurological examination did not reveal any focal deficits. SKIN: No rashes. - Labs CBC & Chem 7: 07/02/20 05:53 07/03/20 06:00 Labs: Abnormal Lab Results - Last 24 Hours (Table) 07/02/20 07/02/20 07/02/20 Range/Units 05:53 11:43 13:38 WBC 11.0 H (3.8-10.6) k/uL RBC 3.65 L (3.80-5.40) m/uL Hgb 11.3 L (11.4-16.0) gm/dL MCV 103.2 H (80.0-100.0) fL MCHC 30.0 L (31.0-37.0) g/dL RDW 15.8 H (11.5-15.5) % Neutrophils # 10.0 H (1.3-7.7) k/uL Lymphocytes # 0.7 L (1.0-4.8) k/uL PT (9.9-11.9) sec INR (0.90-1.11) Sodium (135-145) mmol/L Carbon Dioxide (21.6-31.8) mmol/L BUN (9.0-27.0) mg/dL Creatinine (0.6-1.5) mg/dL Est GFR (CKD-EPI)AfAm (60.0-200.0) Est GFR (CKD-EPI)NonAf (60.0-200.0) Glucose (70-110) mg/dL POC Glucose (mg/dL) 141 H 383 H (75-99) mg/dL Calcium (8.7-10.3) mg/dL 07/02/20 07/02/20 07/02/20 Range/Units 13:42 16:44 17:39 WBC (3.8-10.6) k/uL RBC (3.80-5.40) m/uL Hgb (11.4-16.0) gm/dL MCV (80.0-100.0) fL MCHC (31.0-37.0) g/dL RDW (11.5-15.5) % Neutrophils # (1.3-7.7) k/uL Lymphocytes # (1.0-4.8) k/uL PT (9.9-11.9) sec INR (0.90-1.11) Sodium (135-145) mmol/L Carbon Dioxide (21.6-31.8) mmol/L BUN (9.0-27.0) mg/dL Creatinine (0.6-1.5) mg/dL Est GFR (CKD-EPI)AfAm (60.0-200.0) Est GFR (CKD-EPI)NonAf (60.0-200.0) Glucose (70-110) mg/dL POC Glucose (mg/dL) 188 H 176 H 217 H (75-99) mg/dL Calcium (8.7-10.3) mg/dL 07/02/20 07/03/20 07/03/20 Range/Units 20:22 06:00 06:00 WBC (3.8-10.6) k/uL RBC (3.80-5.40) m/uL Hgb (11.4-16.0) gm/dL MCV (80.0-100.0) fL MCHC (31.0-37.0) g/dL RDW (11.5-15.5) % Neutrophils # (1.3-7.7) k/uL Lymphocytes # (1.0-4.8) k/uL PT 12.5 H (9.9-11.9) sec INR 1.18 H (0.90-1.11) Sodium 134 L (135-145) mmol/L Carbon Dioxide 16.8 L (21.6-31.8) mmol/L BUN 45.0 H (9.0-27.0) mg/dL Creatinine 2.7 H (0.6-1.5) mg/dL Est GFR (CKD-EPI)AfAm 19.1 L (60.0-200.0) Est GFR (CKD-EPI)NonAf 16.5 L (60.0-200.0) Glucose 160 H (70-110) mg/dL POC Glucose (mg/dL) 155 H (75-99) mg/dL Calcium 7.7 L (8.7-10.3) mg/dL 07/03/20 Range/Units 07:27 WBC (3.8-10.6) k/uL RBC (3.80-5.40) m/uL Hgb (11.4-16.0) gm/dL MCV (80.0-100.0) fL MCHC (31.0-37.0) g/dL RDW (11.5-15.5) % Neutrophils # (1.3-7.7) k/uL Lymphocytes # (1.0-4.8) k/uL PT (9.9-11.9) sec INR (0.90-1.11) Sodium (135-145) mmol/L Carbon Dioxide (21.6-31.8) mmol/L BUN (9.0-27.0) mg/dL Creatinine (0.6-1.5) mg/dL Est GFR (CKD-EPI)AfAm (60.0-200.0) Est GFR (CKD-EPI)NonAf (60.0-200.0) Glucose (70-110) mg/dL POC Glucose (mg/dL) 185 H (75-99) mg/dL Calcium (8.7-10.3) mg/dL Microbiology - Last 24 Hours (Table) 06/28/20 15:51 Blood Culture - Preliminary Blood No Growth after 96 hours Assessment and Plan Plan: -Fall and developed a fracture: Patient is status post left hip hemiarthroplasty clinically doing well except for mild pain in the surgical site area -atrial fibrillation presently rate controlled continue with present medications at this time -Urinary tract infection with Citrobacter and enterococcus: Patient is presently on Zosyn and linezolid for these as mentioned above -Acute renal failure secondary to acute tubular necrosis from sepsis and hypotension -hyponatremia etiology is not clear patient is being free water restricted and patient is also getting gentle hydration via IV normal saline as mentioned above nephrology is following the patient. Serum sodium did improve today to 134 -mild metabolic acidosis secondary to acute renal failure -Hypertension -Type 2 diabetes mellitus -Hypothyroidism -Depression -DVT prophylaxis with subcutaneous heparin
[2020-07-03] MEDS: LINEZOLID 600 MG in DEXTROSE/WATER 1 300ML.BAG IVPB SCH ×2 (10:34→23:29)
--- NOTE | 2020-07-03 11:18 | P.PN ---
Subjective patient is seen in follow-up for acute kidney injury and chronic kidney disease. Patient is chronic kidney disease stage III with baseline creatinine near 1.5. Renal function fairly stable compared to yesterday. Creatinine 2.7 today. Nonoliguric. No vomiting or diarrhea. no chest pain or shortness of breath. underwent left hip hemiarthroplasty on July 02. Vital signs are stable. General: The patient appeared well nourished and normally developed. HEENT: Head exam is unremarkable. Neck is without jugular venous distension. LUNGS: Lungs are clear to auscultation and percussion. Breath sounds decreased. HEART: Rate and Rhythm are regular. ABDOMEN: soft, nontender. EXTREMITITES: 1+ edema. Objective - Vital Signs Vital signs: Vital Signs Temp 98.3 F 07/03/20 07:00 Pulse 80 07/03/20 08:00 Resp 18 07/03/20 08:00 BP 84/53 07/03/20 07:00 Pulse Ox 98 07/03/20 07:00 Intake & Output 07/02/20 07/03/20 07/03/20 18:59 06:59 18:59 Intake Total 825 500 Output Total 600 800 Balance 225 -300 Intake: IV 825 Oral 500 Output: Urine 500 800 Estimated Blood Loss 100 Other: Voiding Method Indwelling Catheter Indwelling Catheter Indwelling Catheter - Labs CBC & Chem 7: 07/02/20 05:53 07/03/20 06:00 Labs: Abnormal Lab Results - Last 24 Hours (Table) 07/02/20 07/02/20 07/02/20 Range/Units 05:53 11:43 13:38 WBC 11.0 H (3.8-10.6) k/uL RBC 3.65 L (3.80-5.40) m/uL Hgb 11.3 L (11.4-16.0) gm/dL MCV 103.2 H (80.0-100.0) fL MCHC 30.0 L (31.0-37.0) g/dL RDW 15.8 H (11.5-15.5) % Neutrophils # 10.0 H (1.3-7.7) k/uL Lymphocytes # 0.7 L (1.0-4.8) k/uL PT (9.9-11.9) sec INR (0.90-1.11) Sodium (135-145) mmol/L Carbon Dioxide (21.6-31.8) mmol/L BUN (9.0-27.0) mg/dL Creatinine (0.6-1.5) mg/dL Est GFR (CKD-EPI)AfAm (60.0-200.0) Est GFR (CKD-EPI)NonAf (60.0-200.0) Glucose (70-110) mg/dL POC Glucose (mg/dL) 141 H 383 H (75-99) mg/dL Calcium (8.7-10.3) mg/dL 07/02/20 07/02/20 07/02/20 Range/Units 13:42 16:44 17:39 WBC (3.8-10.6) k/uL RBC (3.80-5.40) m/uL Hgb (11.4-16.0) gm/dL MCV (80.0-100.0) fL MCHC (31.0-37.0) g/dL RDW (11.5-15.5) % Neutrophils # (1.3-7.7) k/uL Lymphocytes # (1.0-4.8) k/uL PT (9.9-11.9) sec INR (0.90-1.11) Sodium (135-145) mmol/L Carbon Dioxide (21.6-31.8) mmol/L BUN (9.0-27.0) mg/dL Creatinine (0.6-1.5) mg/dL Est GFR (CKD-EPI)AfAm (60.0-200.0) Est GFR (CKD-EPI)NonAf (60.0-200.0) Glucose (70-110) mg/dL POC Glucose (mg/dL) 188 H 176 H 217 H (75-99) mg/dL Calcium (8.7-10.3) mg/dL 07/02/20 07/03/20 07/03/20 Range/Units 20:22 06:00 06:00 WBC (3.8-10.6) k/uL RBC (3.80-5.40) m/uL Hgb (11.4-16.0) gm/dL MCV (80.0-100.0) fL MCHC (31.0-37.0) g/dL RDW (11.5-15.5) % Neutrophils # (1.3-7.7) k/uL Lymphocytes # (1.0-4.8) k/uL PT 12.5 H (9.9-11.9) sec INR 1.18 H (0.90-1.11) Sodium 134 L (135-145) mmol/L Carbon Dioxide 16.8 L (21.6-31.8) mmol/L BUN 45.0 H (9.0-27.0) mg/dL Creatinine 2.7 H (0.6-1.5) mg/dL Est GFR (CKD-EPI)AfAm 19.1 L (60.0-200.0) Est GFR (CKD-EPI)NonAf 16.5 L (60.0-200.0) Glucose 160 H (70-110) mg/dL POC Glucose (mg/dL) 155 H (75-99) mg/dL Calcium 7.7 L (8.7-10.3) mg/dL 07/03/20 Range/Units 07:27 WBC (3.8-10.6) k/uL RBC (3.80-5.40) m/uL Hgb (11.4-16.0) gm/dL MCV (80.0-100.0) fL MCHC (31.0-37.0) g/dL RDW (11.5-15.5) % Neutrophils # (1.3-7.7) k/uL Lymphocytes # (1.0-4.8) k/uL PT (9.9-11.9) sec INR (0.90-1.11) Sodium (135-145) mmol/L Carbon Dioxide (21.6-31.8) mmol/L BUN (9.0-27.0) mg/dL Creatinine (0.6-1.5) mg/dL Est GFR (CKD-EPI)AfAm (60.0-200.0) Est GFR (CKD-EPI)NonAf (60.0-200.0) Glucose (70-110) mg/dL POC Glucose (mg/dL) 185 H (75-99) mg/dL Calcium (8.7-10.3) mg/dL Microbiology - Last 24 Hours (Table) 06/28/20 15:51 Blood Culture - Preliminary Blood No Growth after 96 hours Assessment and Plan Plan: assessment: 1. Acute kidney injury secondary to ATN secondary to infection and hemodynamic instability. renal function head worsened with diuresis. Creatinine stable at 2.7 today. 2. Status post fall with acute left femur fracture. Orthopedic surgery following. 3. Chronic kidney disease stage III with baseline creatinine near 1.5. 4. A. fib with RVR status post Cardizem drip. 5. Metabolic acidosis secondary to acute kidney injury and GI losses. 6. UTI urine culture positive for Citrobacter and enterococcus maintained on an tibiotics. Infectious disease following. 7. Chronic diastolic CHF. 8. Hypokalemia secondary to intracellular shifting from IV bicarb. better post replacement. 9. Hyponatremia, hypervolemic. better. 10. Hypomagnesemia from poor intake. improved post replacement. 11. Volume overload. better. Plan: maintain 1500 mL fluid restriction. Encourage oral intake, particularly protein. increase dose of oral sodium bicarbonate. Hold off on Lasix today. Continue to monitor renal function and urine output. add midodrine 5 mg 3 times daily. To be held for systolic blood pressure greater than 110. Check morning cortisol level.
[2020-07-03 11:23] LABS: Glucose,Whole Blood 198 mg/dL (75-99)
[2020-07-03] MEDS: MIDODRINE 5 MG TAB PO SCH ×2 (11:45→17:27)
--- NOTE | 2020-07-03 13:19 | P.PN ---
Subjective Progress Note Date: 07/03/20 This is a pleasant 74-year-old female with history of persistent atrial fibrillation who follows with Dr. FLACA Riggs in the office. Patient also has a history of chronic kidney disease, history of UTI, recent cold low vesicle fistula repair. She presented to the hospital after a fall and fracture of the left hip. She was supposed to undergo surgery yesterday, this was postponed because of abnormality in her sodium levels. Patient was on Coumadin for anticoagulation, this is currently on hold because of the anticipated surgery, she is on heparin subcu twice a day at this time. The patient was seen and examined this morning resting comfortably in bed, still having some discomfort in the left hip area. Breathing is stable. Blood pressure 120/70 with a heart rate in the 80s, 93% on room air. Sodium 131, potassium 4.2, BUN 40, creatinine 2.6. Magnesium 2.0. Patient did have an echo in April of this year which revealed a preserved ventricular size and systolic function. 07/03/2020 Patient seen and examined this morning, postoperative day one from the left hip hemiarthroplasty. Blood pressure 86/50 with a heart rate in the 80s, 98% on 2 L of oxygen. Sodium 134, potassium 4.2, BUN 45 and creatinine 2.7. The patient has been resumed on Coumadin today, we will discuss with the patient and Dr. Potts regarding initiating Eliquis 2-1/2 mg one tablet by mouth twice a day. Objective - Vital Signs Vital signs: Vital Signs Temp 98.3 F 07/03/20 07:00 Pulse 80 07/03/20 08:00 Resp 18 07/03/20 08:00 BP 84/53 07/03/20 07:00 Pulse Ox 98 07/03/20 07:00 Intake & Output 07/02/20 07/03/20 07/03/20 18:59 06:59 18:59 Intake Total 825 500 Output Total 600 800 Balance 225 -300 Intake: IV 825 Oral 500 Output: Urine 500 800 Estimated Blood Loss 100 Other: Voiding Method Indwelling Catheter Indwelling Catheter Indwelling Catheter - Exam PHYSICAL EXAMINATION: GENERAL: 74-year-old female in no acute distress at the time of my examination HEENT: Head is atraumatic, normocephalic. Pupils equal, round. Sclera anicteric. Conjunctiva are clear. Mucous membranes of the mouth are moist. Neck is supple. There is no elevated jugular venous pressure. No carotid bruit is heard. HEART EXAMINATION: Heart S1 and S2 irregularly irregular with systolic murmur is heard CHEST EXAMINATION: Lungs are clear to auscultation and precussion. No chest wall tenderness is noted on palpation or with deep breathing. ABDOMEN: Soft, nontender. Bowel sounds are heard. No organomegaly noted. EXTREMITIES: 2+ peripheral pulses with no evidence of peripheral edema and no calf tenderness noted. Incision site is clean, dry and intact NEUROLOGIC patient is awake, alert and oriented 3 . . - Labs CBC & Chem 7: 07/02/20 05:53 07/03/20 06:00 Labs: Abnormal Lab Results - Last 24 Hours (Table) 07/02/20 07/02/20 07/02/20 Range/Units 05:53 13:38 13:42 WBC 11.0 H (3.8-10.6) k/uL RBC 3.65 L (3.80-5.40) m/uL Hgb 11.3 L (11.4-16.0) gm/dL MCV 103.2 H (80.0-100.0) fL MCHC 30.0 L (31.0-37.0) g/dL RDW 15.8 H (11.5-15.5) % Neutrophils # 10.0 H (1.3-7.7) k/uL Lymphocytes # 0.7 L (1.0-4.8) k/uL PT (9.9-11.9) sec INR (0.90-1.11) Sodium (135-145) mmol/L Carbon Dioxide (21.6-31.8) mmol/L BUN (9.0-27.0) mg/dL Creatinine (0.6-1.5) mg/dL Est GFR (CKD-EPI)AfAm (60.0-200.0) Est GFR (CKD-EPI)NonAf (60.0-200.0) Glucose (70-110) mg/dL POC Glucose (mg/dL) 383 H 188 H (75-99) mg/dL Calcium (8.7-10.3) mg/dL 07/02/20 07/02/20 07/02/20 Range/Units 16:44 17:39 20:22 WBC (3.8-10.6) k/uL RBC (3.80-5.40) m/uL Hgb (11.4-16.0) gm/dL MCV (80.0-100.0) fL MCHC (31.0-37.0) g/dL RDW (11.5-15.5) % Neutrophils # (1.3-7.7) k/uL Lymphocytes # (1.0-4.8) k/uL PT (9.9-11.9) sec INR (0.90-1.11) Sodium (135-145) mmol/L Carbon Dioxide (21.6-31.8) mmol/L BUN (9.0-27.0) mg/dL Creatinine (0.6-1.5) mg/dL Est GFR (CKD-EPI)AfAm (60.0-200.0) Est GFR (CKD-EPI)NonAf (60.0-200.0) Glucose (70-110) mg/dL POC Glucose (mg/dL) 176 H 217 H 155 H (75-99) mg/dL Calcium (8.7-10.3) mg/dL 07/03/20 07/03/20 07/03/20 Range/Units 06:00 06:00 07:27 WBC (3.8-10.6) k/uL RBC (3.80-5.40) m/uL Hgb (11.4-16.0) gm/dL MCV (80.0-100.0) fL MCHC (31.0-37.0) g/dL RDW (11.5-15.5) % Neutrophils # (1.3-7.7) k/uL Lymphocytes # (1.0-4.8) k/uL PT 12.5 H (9.9-11.9) sec INR 1.18 H (0.90-1.11) Sodium 134 L (135-145) mmol/L Carbon Dioxide 16.8 L (21.6-31.8) mmol/L BUN 45.0 H (9.0-27.0) mg/dL Creatinine 2.7 H (0.6-1.5) mg/dL Est GFR (CKD-EPI)AfAm 19.1 L (60.0-200.0) Est GFR (CKD-EPI)NonAf 16.5 L (60.0-200.0) Glucose 160 H (70-110) mg/dL POC Glucose (mg/dL) 185 H (75-99) mg/dL Calcium 7.7 L (8.7-10.3) mg/dL 07/03/20 Range/Units 11:16 WBC (3.8-10.6) k/uL RBC (3.80-5.40) m/uL Hgb (11.4-16.0) gm/dL MCV (80.0-100.0) fL MCHC (31.0-37.0) g/dL RDW (11.5-15.5) % Neutrophils # (1.3-7.7) k/uL Lymphocytes # (1.0-4.8) k/uL PT (9.9-11.9) sec INR (0.90-1.11) Sodium (135-145) mmol/L Carbon Dioxide (21.6-31.8) mmol/L BUN (9.0-27.0) mg/dL Creatinine (0.6-1.5) mg/dL Est GFR (CKD-EPI)AfAm (60.0-200.0) Est GFR (CKD-EPI)NonAf (60.0-200.0) Glucose (70-110) mg/dL POC Glucose (mg/dL) 198 H (75-99) mg/dL Calcium (8.7-10.3) mg/dL Microbiology - Last 24 Hours (Table) 06/28/20 15:51 Blood Culture - Preliminary Blood No Growth after 96 hours Assessment and Plan Plan: Assessment and plan #1 fall with evidence of left hip fracture status post hemiarthroplasty #2 persistent atrial fibrillation #3 status post recent colovesical fistula repair #4 chronic kidney disease #5 history of UTI Plan The patient has been reinitiated on Coumadin today, if okay with Dr. oPtts, and patient is covered we will switch her over to Eliquis 2-1/2 mg one tablet by mouth twice a day. DNP note has been reviewed, I agree with a documented findings and plan of care. Patient was seen and examined.
[2020-07-03 13:46] VITALS: BMI 31.4
[2020-07-03 16:53] LABS: Glucose,Whole Blood 176 mg/dL (75-99)
[2020-07-03] MEDS: LACTOBACILLUS ACIDOPH & BULGAR 1 EACH PACKET PO SCH (17:26)
[2020-07-03] MEDS: PANTOPRAZOLE 40 MG TABLET PO SCH (17:27)
[2020-07-03] MEDS: ACETAMINOPHEN TAB 500 MG TAB PO PRN (17:27)
[2020-07-03] MEDS ORDERED: WARFARIN 3 MG TAB PO ONE (18:00)
[2020-07-03] MEDS: SODIUM CHLORIDE 0.9% 1,000 ML IV SCH ×2 (20:33→20:58)
[2020-07-03 20:43] LABS: Glucose,Whole Blood 158 mg/dL (75-99)
[2020-07-03] MEDS: MULTIVITAMINS, THERA 1 EACH TAB PO SCH (20:57)
--- NOTE | 2020-07-03 23:24 | PN ---
PROGRESS NOTE DATE OF SERVICE: 07/03/2020 REASON FOR FOLLOWUP: Urinary tract infection. INTERVAL HISTORY: The patient is currently afebrile. The patient is status post left hip femoral neck fracture. Surgery with left hip hemiarthroplasty completed yesterday. The patient tolerated the procedure. Pain controlled this morning. No chest pain. No shortness of breath or cough. No abdominal pain or diarrhea. PHYSICAL EXAMINATION: Blood pressure 105/71 with a pulse of 80, temperature is 97.3. She is 93% on 3 L nasal cannula. General description is an elderly female up in the chair in no distress. RESPIRATORY SYSTEM: Unlabored breathing, decreased breath sounds at the bases. No wheeze. HEART: S1, S2. Regular rate and rhythm. ABDOMEN: Soft, no tenderness. LABS: BUN of 45, creatinine is 2.7. DIAGNOSTIC IMPRESSION AND PLAN: Patient with Citrobacter and Enterococcus faecium urinary tract infection complicated presented to the hospital with left hip fracture, status post left hip hemiarthroplasty. Patient to continue antibiotic for the next day or 2. Will be repeating cultures and if those are negative, antibiotic will be discontinued. Continue supportive care. MMODL / IJN: [id number] /
[2020-07-04] MEDS: ACETAMINOPHEN TAB 500 MG TAB PO PRN (05:41)
[2020-07-04] MEDS: LEVOTHYROXINE 88 MCG TAB PO SCH (05:41)
[2020-07-04 07:40] LABS: Glucose,Whole Blood 195 mg/dL (75-99)
[2020-07-04] MEDS: METOPROLOL TARTRATE 25 MG TAB PO SCH ×3 (07:45→20:43)
[2020-07-04] MEDS: MIDODRINE 5 MG TAB PO SCH ×3 (07:53→17:31)
[2020-07-04] MEDS: PREGABALIN 100 MG CAP PO SCH (07:53)
[2020-07-04] MEDS: SODIUM BICARBONATE TAB 650 MG TAB PO SCH ×2 (07:53→21:18)
[2020-07-04] MEDS: HYDROCORTISONE SUCCINATE 100 MG/2 ML VIAL IV SCH ×3 (07:53→22:56)
[2020-07-04] MEDS: BALSALAZIDE DISODIUM 750 MG CAPSULE PO SCH ×3 (07:54→17:31)
[2020-07-04] MEDS: PANTOPRAZOLE 40 MG TABLET PO SCH ×2 (07:54→17:31)
[2020-07-04] MEDS: HEPARIN SODIUM,PORCINE 5,000 UNIT/ML 1 ML VIAL SQ SCH ×2 (07:54→21:17)
[2020-07-04] MEDS: INSULIN ASPART (NovoLOG) 100 UNIT/ML VIAL SQ SCH ×4 (07:57→21:19)
[2020-07-04] MEDS: SENNOSIDES-DOCUSATE SODIUM 1 EACH TAB PO SCH (07:58)
--- NOTE | 2020-07-04 09:16 | P.PN ---
Subjective Progress Note Date: 07/04/20 Principal diagnosis: Status post left hip hemiarthroplasty This is a 74 year-old female post left hip hemiarthroplasty. This is post-op day 2. The patient was evaluated at the bedside today. The patient denies nausea, vomiting, abdominal pain, shortness of breath, and chest pain this morning. She states her pain is controlled at this time. The patient has been up with physical therapy but is requiring a max assist of 2-3 people. Objective - Vital Signs Vital signs: Vital Signs Temp 97.4 F L 07/04/20 07:00 Pulse 76 07/04/20 07:58 Resp 22 07/04/20 07:58 BP 97/63 07/04/20 07:00 Pulse Ox 99 07/04/20 07:00 Intake & Output 07/03/20 07/04/20 07/04/20 18:59 06:59 18:59 Intake Total 575 1200 Output Total 600 Balance 575 600 Weight 91 kg Intake: Intake, IV Titration 575 800 Amount Linezolid 600 mg In 300 Dextrose/Water 1 300ml. bag @ 150 mls/hr IVPB Q12H [facility] Rx#:[id number] Piperacillin-Tazobactam 3 100 .375 gm In Sodium Chloride 0.9% 100 ml @ 25 mls/hr IVPB Q12H [facility] Rx# :[id number] Sodium Chloride 0.9% 1, 400 000 ml @ 50 mls/hr IV . Q20H [facility] Rx#:[id number] Sodium Chloride 0.9% 1, 525 000 ml @ 75 mls/hr IV . [id number] [facility] Rx#:[id number] ceFAZolin 2 gm In Sodium 50 Chloride 0.9% 50 ml @ 100 mls/hr IVPB Q8HR [facility] Rx# :[id number] Oral 400 Output: Urine 600 Uretheral (Peoples) 200 Other: Voiding Method Indwelling Catheter Indwelling Catheter Indwelling Catheter - Exam The patient does not appear in acute distress. Alert and orientated x1. Dressing is clean dry and intact. Incision appears fine with no erythema or active drainage. Calf is soft and nontender. Good foot and ankle motion without difficulty. Sensation and circulatory status is intact. - Labs CBC & Chem 7: 07/02/20 05:53 07/03/20 06:00 Labs: Abnormal Lab Results - Last 24 Hours (Table) 07/03/20 07/03/20 07/03/20 Range/Units 06:00 06:00 06:00 PT 12.5 H (9.9-11.9) sec INR 1.18 H (0.90-1.11) Sodium 134 L (135-145) mmol/L Carbon Dioxide 16.8 L (21.6-31.8) mmol/L BUN 45.0 H (9.0-27.0) mg/dL Creatinine 2.7 H (0.6-1.5) mg/dL Est GFR (CKD-EPI)AfAm 19.1 L (60.0-200.0) Est GFR (CKD-EPI)NonAf 16.5 L (60.0-200.0) Glucose 160 H (70-110) mg/dL POC Glucose (mg/dL) (75-99) mg/dL Calcium 7.7 L (8.7-10.3) mg/dL Cortisol 61.6 H (3.10-22.40) ug/dL 07/03/20 07/03/20 07/03/20 Range/Units 11:16 16:51 20:40 PT (9.9-11.9) sec INR (0.90-1.11) Sodium (135-145) mmol/L Carbon Dioxide (21.6-31.8) mmol/L BUN (9.0-27.0) mg/dL Creatinine (0.6-1.5) mg/dL Est GFR (CKD-EPI)AfAm (60.0-200.0) Est GFR (CKD-EPI)NonAf (60.0-200.0) Glucose (70-110) mg/dL POC Glucose (mg/dL) 198 H 176 H 158 H (75-99) mg/dL Calcium (8.7-10.3) mg/dL Cortisol (3.10-22.40) ug/dL 07/04/20 Range/Units 07:17 PT (9.9-11.9) sec INR (0.90-1.11) Sodium (135-145) mmol/L Carbon Dioxide (21.6-31.8) mmol/L BUN (9.0-27.0) mg/dL Creatinine (0.6-1.5) mg/dL Est GFR (CKD-EPI)AfAm (60.0-200.0) Est GFR (CKD-EPI)NonAf (60.0-200.0) Glucose (70-110) mg/dL POC Glucose (mg/dL) 195 H (75-99) mg/dL Calcium (8.7-10.3) mg/dL Cortisol (3.10-22.40) ug/dL Microbiology - Last 24 Hours (Table) 06/28/20 15:51 Blood Culture - Preliminary Blood No Growth after 120 hours Assessment and Plan (1) Closed left hip fracture Current Visit: Yes Status: Acute Code(s): S72.002A - FRACTURE OF UNSP PART OF NECK OF LEFT FEMUR, INIT SNOMED Code(s): 598829233 (2) Fall Current Visit: Yes Status: Acute Code(s): W19.XXXA - UNSPECIFIED FALL, INITIAL ENCOUNTER SNOMED Code(s): 0954619 (3) UTI (urinary tract infection) Current Visit: Yes Status: Acute Code(s): N39.0 - URINARY TRACT INFECTION, SITE NOT SPECIFIED SNOMED Code(s): 49188696 Plan: 1. Continue pain control 2. Anticoagulation with Coumadin per internal medicine 3. Continue physical therapy and ambulation, weightbearing as tolerated. 4. Anticipate discharge to [facility] after COVID testing
[2020-07-04 09:23] LABS: INR 1.39 (0.90-1.11); Prothrombin Time 14.7 sec (9.9-11.9)
[2020-07-04] MEDS: PIPERACILLIN-TAZOBACTAM 3.375 GM in SODIUM CHLORIDE 0.9% 100 ML IVPB SCH ×2 (09:42→21:19)
[2020-07-04 10:24] LABS: Anion Gap 13.5 mmol/L (4.00-12.00); BUN/Creat Ratio 15.76 Ratio (12.00-20.00); Calcium 7.9 mg/dL (8.7-10.3); Carbon Dioxide 16.5 mmol/L (21.6-31.8); Magnesium 2.2 mg/dL (1.5-2.4); Non-African American GFR(CKD) 12.9 (60.0-200.0); Potassium 3.9 mmol/L (3.5-5.5)
[2020-07-04] MEDS ORDERED: SODIUM BICARB 8.4% 50 ML SYR (1 MEQ/ML) IV STA (10:58)
--- NOTE | 2020-07-04 10:58 | P.PN ---
Subjective patient is seen in follow-up for acute kidney injury and chronic kidney disease. Patient is chronic kidney disease stage III with baseline creatinine near 1.5. Renal function worsened today. Creatinine up to 3.3. Urine output 400 mL overnight. She has a Peoples catheter. Remains a little confused. underwent left hip hemiarthroplasty on July 02. Vital signs are stable. General: The patient appeared well nourished and normally developed. HEENT: Head exam is unremarkable. Neck is without jugular venous distension. LUNGS: Lungs are clear to auscultation and percussion. Breath sounds decreased. HEART: Rate and Rhythm are regular. ABDOMEN: soft, nontender. EXTREMITITES: 1+ edema. Objective - Vital Signs Vital signs: Vital Signs Temp 97.4 F L 07/04/20 07:00 Pulse 76 07/04/20 07:58 Resp 22 07/04/20 07:58 BP 97/63 07/04/20 07:00 Pulse Ox 99 07/04/20 07:00 Intake & Output 07/03/20 07/04/20 07/04/20 18:59 06:59 18:59 Intake Total 575 1200 Output Total 600 Balance 575 600 Weight 91 kg Intake: Intake, IV Titration 575 800 Amount Linezolid 600 mg In 300 Dextrose/Water 1 300ml. bag @ 150 mls/hr IVPB Q12H [facility] Rx#:[id number] Piperacillin-Tazobactam 3 100 .375 gm In Sodium Chloride 0.9% 100 ml @ 25 mls/hr IVPB Q12H [facility] Rx# :[id number] Sodium Chloride 0.9% 1, 400 000 ml @ 50 mls/hr IV . Q20H [facility] Rx#:[id number] Sodium Chloride 0.9% 1, 525 000 ml @ 75 mls/hr IV . [id number] [facility] Rx#:[id number] ceFAZolin 2 gm In Sodium 50 Chloride 0.9% 50 ml @ 100 mls/hr IVPB Q8HR [facility] Rx# :[id number] Oral 400 Output: Urine 600 Uretheral (Peoples) 200 Other: Voiding Method Indwelling Catheter Indwelling Catheter Indwelling Catheter - Labs CBC & Chem 7: 07/02/20 05:53 07/04/20 05:36 Labs: Abnormal Lab Results - Last 24 Hours (Table) 1007/03/20 07/03/20 Range/Units 06:00 11:16 16:51 PT (9.9-11.9) sec INR (0.90-1.11) Sodium (135-145) mmol/L Carbon Dioxide (21.6-31.8) mmol/L Anion Gap (4.00-12.00) mmol/L BUN (9.0-27.0) mg/dL Creatinine (0.6-1.5) mg/dL Est GFR (CKD-EPI)AfAm (60.0-200.0) Est GFR (CKD-EPI)NonAf (60.0-200.0) Glucose (70-110) mg/dL POC Glucose (mg/dL) 198 H 176 H (75-99) mg/dL Calcium (8.7-10.3) mg/dL Cortisol 61.6 H (3.10-22.40) ug/dL 07/03/20 07/04/20 07/04/20 Range/Units 20:40 05:36 05:36 PT 14.7 H (9.9-11.9) sec INR 1.39 H (0.90-1.11) Sodium 133 L (135-145) mmol/L Carbon Dioxide 16.5 L (21.6-31.8) mmol/L Anion Gap 13.50 H (4.00-12.00) mmol/L BUN 52.0 H (9.0-27.0) mg/dL Creatinine 3.3 H (0.6-1.5) mg/dL Est GFR (CKD-EPI)AfAm 15.0 L (60.0-200.0) Est GFR (CKD-EPI)NonAf 12.9 L (60.0-200.0) Glucose 180 H (70-110) mg/dL POC Glucose (mg/dL) 158 H (75-99) mg/dL Calcium 7.9 L (8.7-10.3) mg/dL Cortisol (3.10-22.40) ug/dL 07/04/20 Range/Units 07:17 PT (9.9-11.9) sec INR (0.90-1.11) Sodium (135-145) mmol/L Carbon Dioxide (21.6-31.8) mmol/L Anion Gap (4.00-12.00) mmol/L BUN (9.0-27.0) mg/dL Creatinine (0.6-1.5) mg/dL Est GFR (CKD-EPI)AfAm (60.0-200.0) Est GFR (CKD-EPI)NonAf (60.0-200.0) Glucose (70-110) mg/dL POC Glucose (mg/dL) 195 H (75-99) mg/dL Calcium (8.7-10.3) mg/dL Cortisol (3.10-22.40) ug/dL Microbiology - Last 24 Hours (Table) 06/28/20 15:51 Blood Culture - Preliminary Blood No Growth after 120 hours Assessment and Plan Plan: assessment: 1. Acute kidney injury secondary to ATN secondary to infection and hypotension. Creatinine up to 3.3 today. 2. Status post fall with acute left femur fracture. underwent left hip hemiarthroplasty in [place] 3. Chronic kidney disease stage III with baseline creatinine near 1.5. 4. A. fib with RVR status post Cardizem drip. 5. Metabolic acidosis secondary to acute kidney injury and GI losses. maintained on oral sodium bicarbonate. 6. UTI urine culture positive for Citrobacter and enterococcus maintained on a ntibiotics. Infectious disease following. 7. Chronic diastolic CHF. 8. Hypokalemia secondary to intracellular shifting from IV bicarb. better post replacement. 9. Hyponatremia, hypervolemic. stable. 10. Hypomagnesemia from poor intake. improved post replacement. Plan: start normal saline at 50 mL an hour. Encourage oral intake, particularly protein. Continue to monitor renal function and urine output. increase midodrine to 10 mg 3 times daily. To be held if systolic blood pressure greater than 110. maintain Peoples catheter for now. Strict I's and O's. cortisol level high.
[2020-07-04] MEDS: LINEZOLID 600 MG in DEXTROSE/WATER 1 300ML.BAG IVPB SCH ×2 (11:01→22:56)
[2020-07-04 11:26] LABS: Glucose,Whole Blood 211 mg/dL (75-99)
[2020-07-04] MEDS: FOLIC ACID 1 MG TAB PO SCH (11:53)
[2020-07-04] MEDS: THIAMINE 100 MG TAB PO SCH (11:53)
--- NOTE | 2020-07-04 12:17 | P.PN ---
Subjective Progress Note Date: 07/04/20 This is a pleasant 74-year-old female with history of persistent atrial fibrillation who follows with Dr. FLACA Riggs in the office. Patient also has a history of chronic kidney disease, history of UTI, recent cold low vesicle fistula repair. She presented to the hospital after a fall and fracture of the left hip. She was supposed to undergo surgery yesterday, this was postponed because of abnormality in her sodium levels. Patient was on Coumadin for anticoagulation, this is currently on hold because of the anticipated surgery, she is on heparin subcu twice a day at this time. The patient was seen and examined this morning resting comfortably in bed, still having some discomfort in the left hip area. Breathing is stable. Blood pressure 120/70 with a heart rate in the 80s, 93% on room air. Sodium 131, potassium 4.2, BUN 40, creatinine 2.6. Magnesium 2.0. Patient did have an echo in April of this year which revealed a preserved ventricular size and systolic function. 07/03/2020 Patient seen and examined this morning, postoperative day one from the left hip hemiarthroplasty. Blood pressure 86/50 with a heart rate in the 80s, 98% on 2 L of oxygen. Sodium 134, potassium 4.2, BUN 45 and creatinine 2.7. The patient has been resumed on Coumadin today, we will discuss with the patient and Dr. Potts regarding initiating Eliquis 2-1/2 mg one tablet by mouth twice a day. 07/04/2020 Patient was seen and examined this morning, her pain seems to be under adequate control. Blood pressure 97/60 with a heart rate in the 70s, 99% on 3 L of oxygen. Pro time today is 14.7 with an INR of 1.3. Sodium 133, potassium 3.9, BUN 52 and creatinine 3.3, up from yesterday. Objective - Vital Signs Vital signs: Vital Signs Temp 97.4 F L 07/04/20 07:00 Pulse 76 07/04/20 07:58 Resp 22 07/04/20 07:58 BP 97/63 07/04/20 07:00 Pulse Ox 99 07/04/20 07:00 Intake & Output 07/03/20 07/04/20 07/04/20 18:59 06:59 18:59 Intake Total 575 1200 Output Total 600 Balance 575 600 Weight 91 kg Intake: Intake, IV Titration 575 800 Amount Linezolid 600 mg In 300 Dextrose/Water 1 300ml. bag @ 150 mls/hr IVPB Q12H [facility] Rx#:[id number] Piperacillin-Tazobactam 3 100 .375 gm In Sodium Chloride 0.9% 100 ml @ 25 mls/hr IVPB Q12H [facility] Rx# :[id number] Sodium Chloride 0.9% 1, 400 000 ml @ 50 mls/hr IV . Q20H [facility] Rx#:[id number] Sodium Chloride 0.9% 1, 525 000 ml @ 75 mls/hr IV . [id number] [facility] Rx#:[id number] ceFAZolin 2 gm In Sodium 50 Chloride 0.9% 50 ml @ 100 mls/hr IVPB Q8HR [facility] Rx# :[id number] Oral 400 Output: Urine 600 Uretheral (Peoples) 200 Other: Voiding Method Indwelling Catheter Indwelling Catheter Indwelling Catheter - Exam PHYSICAL EXAMINATION: GENERAL: 74-year-old female in no acute distress at the time of my examination HEENT: Head is atraumatic, normocephalic. Pupils equal, round. Sclera anicteric. Conjunctiva are clear. Mucous membranes of the mouth are moist. Neck is supple. There is no elevated jugular venous pressure. No carotid bruit is heard. HEART EXAMINATION: Heart S1 and S2 irregularly irregular with systolic murmur is heard CHEST EXAMINATION: Lungs are clear to auscultation and precussion. No chest wall tenderness is noted on palpation or with deep breathing. ABDOMEN: Soft, nontender. Bowel sounds are heard. No organomegaly noted. EXTREMITIES: 2+ peripheral pulses with no evidence of peripheral edema and no calf tenderness noted. Incision site is clean, dry and intact NEUROLOGIC patient is awake, alert and oriented 3 . . - Labs CBC & Chem 7: 07/02/20 05:53 07/04/20 05:36 Labs: Abnormal Lab Results - Last 24 Hours (Table) 07/03/20 07/03/20 07/03/20 Range/Units 06:00 16:51 20:40 PT (9.9-11.9) sec INR (0.90-1.11) Sodium (135-145) mmol/L Carbon Dioxide (21.6-31.8) mmol/L Anion Gap (4.00-12.00) mmol/L BUN (9.0-27.0) mg/dL Creatinine (0.6-1.5) mg/dL Est GFR (CKD-EPI)AfAm (60.0-200.0) Est GFR (CKD-EPI)NonAf (60.0-200.0) Glucose (70-110) mg/dL POC Glucose (mg/dL) 176 H 158 H (75-99) mg/dL Calcium (8.7-10.3) mg/dL Cortisol 61.6 H (3.10-22.40) ug/dL 07/04/20 07/04/20 07/04/20 Range/Units 05:36 05:36 07:17 PT 14.7 H (9.9-11.9) sec INR 1.39 H (0.90-1.11) Sodium 133 L (135-145) mmol/L Carbon Dioxide 16.5 L (21.6-31.8) mmol/L Anion Gap 13.50 H (4.00-12.00) mmol/L BUN 52.0 H (9.0-27.0) mg/dL Creatinine 3.3 H (0.6-1.5) mg/dL Est GFR (CKD-EPI)AfAm 15.0 L (60.0-200.0) Est GFR (CKD-EPI)NonAf 12.9 L (60.0-200.0) Glucose 180 H (70-110) mg/dL POC Glucose (mg/dL) 195 H (75-99) mg/dL Calcium 7.9 L (8.7-10.3) mg/dL Cortisol (3.10-22.40) ug/dL 07/04/20 Range/Units 11:24 PT (9.9-11.9) sec INR (0.90-1.11) Sodium (135-145) mmol/L Carbon Dioxide (21.6-31.8) mmol/L Anion Gap (4.00-12.00) mmol/L BUN (9.0-27.0) mg/dL Creatinine (0.6-1.5) mg/dL Est GFR (CKD-EPI)AfAm (60.0-200.0) Est GFR (CKD-EPI)NonAf (60.0-200.0) Glucose (70-110) mg/dL POC Glucose (mg/dL) 211 H (75-99) mg/dL Calcium (8.7-10.3) mg/dL Cortisol (3.10-22.40) ug/dL Microbiology - Last 24 Hours (Table) 06/28/20 15:51 Blood Culture - Preliminary Blood No Growth after 120 hours Assessment and Plan Plan: Assessment and plan #1 fall with evidence of left hip fracture status post hemiarthroplasty #2 persistent atrial fibrillation #3 status post recent colovesical fistula repair #4 chronic kidney disease #5 history of UTI Plan The patient has been reinitiated on Coumadin , per internal medicine. We will follow this patient along with you now on an as-needed basis only, please don't hesitate to call with any questions. DNP note has been reviewed, I agree with a documented findings and plan of care. Patient was seen and examined.
--- NOTE | 2020-07-04 14:32 | P.PN ---
Subjective Progress Note Date: 07/04/20 74-year-old female admitted for fall and left hip fracture. Patient is presently broad-spectrum antibiotics. Patient is supposed to undergo surgical intervention for her fractured today but patient is hyponatremic because of which patient didn't undergo surgery today. Nephrology is following the patient patient does have acute renal failure as well patient is receiving IV fluids at 50 mL per hour along with free water restriction as per nephrology. Nephrology believes elevation in creatinine which is a 2.3 today worse than yesterday and the same as admission is secondary to acute tubular necrosis from hypotension patient does have metabolic acidosis from that. Patient is presently on linezolid and Zosyn for enterococcus ECM and Citrobacter respectively. Patient is high risk for nephrotoxicity because of which patient is a linezolid. 07/02/2020 Patient clinically doing well but the her serum creatinine continued to get worse nephrology is following the patient and patient the serum sodium is 131 and patient should be able to go for surgery today in medically stable to go for surgery. Acute renal failure was believed to be secondary to acute tubular necrosis from infection and hypotension admission, patient blood pressures prior presently stable but expect to have perioperative hypotension and patient was closely monitored 07/03/2020 Patient is postoperative day 1. Less left hip hemiarthroplasty. Patient is having some pain in the surgical site area no other significant abnormality is a do not have any labs available from today at 07/04/2020 Due to postop left hip hemiarthroplasty, family reports patient is generally weak. Patient did receive IV Dilaudid. Continued on IV hydration with normal saline, creatinine 3.3 today. On 2 L nasal cannula saturating 99%. No fever. Constitutional: Denied any fatigue denied any fever. Cardio vascular: denied any chest pain, palpitations Gastrointestinal denied any nausea vomiting Pulmonary: Denied any shortness of breath cough Neurologic denied any new focal deficits All inpatient medications were reviewed and appropriate changes in these medications as dictated in the interval history and assessment and plan. Objective - Vital Signs Vital signs: Vital Signs Temp 97.4 F L 07/04/20 07:00 Pulse 76 07/04/20 07:58 Resp 22 07/04/20 07:58 BP 97/63 07/04/20 07:00 Pulse Ox 99 07/04/20 07:00 Intake & Output 07/03/20 07/04/20 07/04/20 18:59 06:59 18:59 Intake Total 575 1200 Output Total 600 Balance 575 600 Weight 91 kg Intake: Intake, IV Titration 575 800 Amount Linezolid 600 mg In 300 Dextrose/Water 1 300ml. bag @ 150 mls/hr IVPB Q12H [facility] Rx#:[id number] Piperacillin-Tazobactam 3 100 .375 gm In Sodium Chloride 0.9% 100 ml @ 25 mls/hr IVPB Q12H [facility] Rx# :[id number] Sodium Chloride 0.9% 1, 400 000 ml @ 50 mls/hr IV . Q20H [facility] Rx#:[id number] Sodium Chloride 0.9% 1, 525 000 ml @ 75 mls/hr IV . [id number] [facility] Rx#:[id number] ceFAZolin 2 gm In Sodium 50 Chloride 0.9% 50 ml @ 100 mls/hr IVPB Q8HR [facility] Rx# :[id number] Oral 400 Output: Urine 600 Uretheral (Peoples) 200 Other: Voiding Method Indwelling Catheter Indwelling Catheter Indwelling Catheter - Exam PHYSICAL EXAMINATION: GENERAL: The patient is alert and oriented x3, not in any acute distress. Well developed, well nourished. HEENT: Pupils are round and equally reacting to light. EOMI. No scleral icterus. No conjunctival pallor. Normocephalic, atraumatic. No pharyngeal erythema. No thyromegaly. CARDIOVASCULAR: S1 and S2 present. No murmurs, rubs, or gallops. PULMONARY: Chest is clear to auscultation, no wheezing or crackles. ABDOMEN: Soft, nontender, nondistended, normoactive bowel sounds. No palpable organomegaly. MUSCULOSKELETAL: Deferred to arthritic surgery EXTREMITIES: No cyanosis, clubbing, or pedal edema. NEUROLOGICAL: Gross neurological examination did not reveal any focal deficits. SKIN: No rashes. - Labs CBC & Chem 7: 07/02/20 05:53 07/04/20 05:36 Labs: Abnormal Lab Results - Last 24 Hours (Table) 07/03/20 07/03/20 07/03/20 Range/Units 06:00 16:51 20:40 PT (9.9-11.9) sec INR (0.90-1.11) Sodium (135-145) mmol/L Carbon Dioxide (21.6-31.8) mmol/L Anion Gap (4.00-12.00) mmol/L BUN (9.0-27.0) mg/dL Creatinine (0.6-1.5) mg/dL Est GFR (CKD-EPI)AfAm (60.0-200.0) Est GFR (CKD-EPI)NonAf (60.0-200.0) Glucose (70-110) mg/dL POC Glucose (mg/dL) 176 H 158 H (75-99) mg/dL Calcium (8.7-10.3) mg/dL Cortisol 61.6 H (3.10-22.40) ug/dL 07/04/20 07/04/20 07/04/20 Range/Units 05:36 05:36 07:17 PT 14.7 H (9.9-11.9) sec INR 1.39 H (0.90-1.11) Sodium 133 L (135-145) mmol/L Carbon Dioxide 16.5 L (21.6-31.8) mmol/L Anion Gap 13.50 H (4.00-12.00) mmol/L BUN 52.0 H (9.0-27.0) mg/dL Creatinine 3.3 H (0.6-1.5) mg/dL Est GFR (CKD-EPI)AfAm 15.0 L (60.0-200.0) Est GFR (CKD-EPI)NonAf 12.9 L (60.0-200.0) Glucose 180 H (70-110) mg/dL POC Glucose (mg/dL) 195 H (75-99) mg/dL Calcium 7.9 L (8.7-10.3) mg/dL Cortisol (3.10-22.40) ug/dL 07/04/20 Range/Units 11:24 PT (9.9-11.9) sec INR (0.90-1.11) Sodium (135-145) mmol/L Carbon Dioxide (21.6-31.8) mmol/L Anion Gap (4.00-12.00) mmol/L BUN (9.0-27.0) mg/dL Creatinine (0.6-1.5) mg/dL Est GFR (CKD-EPI)AfAm (60.0-200.0) Est GFR (CKD-EPI)NonAf (60.0-200.0) Glucose (70-110) mg/dL POC Glucose (mg/dL) 211 H (75-99) mg/dL Calcium (8.7-10.3) mg/dL Cortisol (3.10-22.40) ug/dL Microbiology - Last 24 Hours (Table) 06/28/20 15:51 Blood Culture - Preliminary Blood No Growth after 120 hours Assessment and Plan Assessment: -Fall and developed a fracture: Patient is status post left hip hemiarthroplasty clinically doing well except for mild pain. Receiving Dilaudid, avoid oversedation. -atrial fibrillation presently rate controlled continue with present medications at this time -Urinary tract infection with Citrobacter and enterococcus: Patient is presently on Zosyn and linezolid for these as mentioned above -Acute renal failure secondary to acute tubular necrosis from sepsis and hypotension, creatinine up to 3.3. Continue on gentle IV hydration. Monitor renal function oxalates. -hyponatremia etiology is not clear patient is being free water restricted and patient is also getting gentle hydration via IV normal saline. Sodium 133, nephrology following. BMP tomorrow. -mild metabolic acidosis secondary to acute renal failure: On oral sodium bicarbonate -Hypertension -Type 2 diabetes mellitus -Hypothyroidism -Depression -DVT prophylaxis with subcutaneous heparin - Discontinue benzodiazepines, recommend judicious use of Dilaudid to control pain but avoid oversedation. Family at bedside asking questions regarding Analgesic regimen. Questions were answered.
--- NOTE | 2020-07-04 15:39 | XR ---
EXAMINATION TYPE: XR chest 1V portable DATE OF EXAM: 07/04/2020 COMPARISON: Prior chest x-ray 06/27/2020 HISTORY: Shortness of breath TECHNIQUE: Single frontal view of the chest is obtained. FINDINGS: Patient is rotated. There is no evident pneumothorax. Bibasilar increased attenuation is n oted, there is blunting the right costophrenic angle. Heart may be enlarged. IMPRESSION: Rotated exam. Probable basilar atelectasis, correlate for possible pneumonia, effusion, follow-up suggested.
[2020-07-04] MEDS: ONDANSETRON 4 MG/2 ML VIAL IVP PRN (15:47)
[2020-07-04 16:10] LABS: Basophils % (A) 0 %; Eosinophils % (A) 0 %; HCT 28.7 % (34.0-46.0); Hypochromasia Marked; Lymphocytes # (A) 0.6 k/uL (1.0-4.8); Lymphocytes % (A) 6 %; MCH 32.4 pg (25.0-35.0); MCHC 30.4 g/dL (31.0-37.0); MCV 106.7 fL (80.0-100.0); Macrocytosis Marked; Mean Platelet Volume 12.3; Monocytes # (A) 0.3 k/uL (0-1.0); Monocytes % (A) 3 %; Neutrophils # (A) 9.7 k/uL (1.3-7.7); Neutrophils % (A) 91 %; Platelet Count 136 k/uL (150-450); Poikilocytosis Slight; RBC 2.69 m/uL (3.80-5.40); RDW 15.9 % (11.5-15.5); WBC 10.7 k/uL (3.8-10.6)
[2020-07-04 16:14] LABS: HGB 8.7 gm/dL (11.4-16.0)
[2020-07-04 17:06] LABS: Glucose,Whole Blood 159 mg/dL (75-99)
[2020-07-04] MEDS: LACTOBACILLUS ACIDOPH & BULGAR 1 EACH PACKET PO SCH (17:29)
[2020-07-04] MEDS ORDERED: WARFARIN 3 MG TAB PO ONE (18:00)
--- NOTE | 2020-07-04 18:24 | PN ---
PROGRESS NOTE DATE OF SERVICE: 07/04/2020 REASON FOR FOLLOWUP: Urinary tract infection. INTERVAL HISTORY: The patient is currently afebrile. Patient is breathing comfortably. Denies having any chest pain. No shortness of breath. No cough. No nausea, vomiting, no abdominal pain or diarrhea. PHYSICAL EXAMINATION: Blood pressure 97/63 with a pulse of 76. Temperature 97.4. She is 99% on 3 L nasal cannula. General description is an elderly female up in the bed in no distress. Respiratory system: Unlabored breathing, decreased breath sounds in the bases. No wheeze. Heart S1, S2. Regular rate and rhythm. Abdomen soft. No tenderness. Peoples catheter did have clear urine. LABS: Hemoglobin 8.1, white count 10.7. Creatinine is up to 3.3. DIAGNOSTIC IMPRESSION AND PLAN: Patient with a complicated urinary tract infection. Urine has been showing Enterococcus lesion and Citrobacter. Patient is covered with Zosyn and Zyvox to continue. kidney function being monitored by the admitting team. Daughter at the bedside. Questions were answered. MMODL / IJN: [id number] /
[2020-07-04] MEDS: SODIUM CHLORIDE 0.9% 1,000 ML IV SCH ×2 (21:09→21:18)
[2020-07-04 21:21] LABS: Glucose,Whole Blood 156 mg/dL (75-99)
[2020-07-04] MEDS: MULTIVITAMINS, THERA 1 EACH TAB PO SCH (22:27)
[2020-07-05] MEDS: PREGABALIN 100 MG CAP PO SCH ×3 (01:12→20:30)
[2020-07-05] MEDS: LEVOTHYROXINE 88 MCG TAB PO SCH (05:26)
[2020-07-05] MEDS: SODIUM CHLORIDE 0.9% 1,000 ML IV SCH ×2 (05:28→11:59)
[2020-07-05 07:05] LABS: Glucose,Whole Blood 193 mg/dL (75-99)
[2020-07-05] MEDS: PANTOPRAZOLE 40 MG TABLET PO SCH ×2 (07:59→17:37)
[2020-07-05] MEDS: SENNOSIDES-DOCUSATE SODIUM 1 EACH TAB PO SCH (07:59)
[2020-07-05] MEDS: SODIUM BICARBONATE TAB 650 MG TAB PO SCH ×2 (07:59→20:30)
[2020-07-05] MEDS: METOPROLOL TARTRATE 25 MG TAB PO SCH ×3 (07:59→20:31)
[2020-07-05] MEDS: HEPARIN SODIUM,PORCINE 5,000 UNIT/ML 1 ML VIAL SQ SCH (08:00)
[2020-07-05] MEDS: HYDROCORTISONE SUCCINATE 100 MG/2 ML VIAL IV SCH ×2 (08:00→20:30)
[2020-07-05] MEDS: BALSALAZIDE DISODIUM 750 MG CAPSULE PO SCH ×3 (08:00→17:53)
[2020-07-05] MEDS: INSULIN ASPART (NovoLOG) 100 UNIT/ML VIAL SQ SCH ×4 (08:01→20:31)
[2020-07-05] MEDS: MIDODRINE 5 MG TAB PO SCH ×3 (08:01→15:58)
[2020-07-05 09:55] LABS: African American GFR (CKD) 15.5 (60.0-200.0); BUN/Creat Ratio 17.19 Ratio (12.00-20.00); Calcium 7.4 mg/dL (8.7-10.3); Magnesium 1.9 mg/dL (1.5-2.4); Non-African American GFR(CKD) 13.4 (60.0-200.0); Potassium 3.2 mmol/L (3.5-5.5)
--- NOTE | 2020-07-05 10:32 | P.PN ---
<Olesya Crowley L - Last Filed: 07/05/20 10:31> Subjective Progress Note Date: 07/05/20 This is a 74-year-old female who is status post left hip hemiarthroplasty. This is postoperative day #3. The patient is seen and evaluated at bedside today. Patient states that her pain is controlled and she has been working with p hysical therapy. Patient denies any new symptoms today. Objective - Vital Signs Vital signs: Vital Signs Temp 97.9 F 07/05/20 07:00 Pulse 91 07/05/20 07:00 Resp 18 07/05/20 07:00 BP 126/85 07/05/20 07:00 Pulse Ox 94 L 07/05/20 07:00 Intake & Output 07/04/20 07/05/20 07/05/20 18:59 06:59 18:59 Intake Total 1250 Output Total 300 550 Balance 950 -550 Intake: Intake, IV Titration 750 Amount Linezolid 600 mg In 300 Dextrose/Water 1 300ml. bag @ 150 mls/hr IVPB Q12H [facility] Rx#:[id number] Piperacillin-Tazobactam 3 100 .375 gm In Sodium Chloride 0.9% 100 ml @ 25 mls/hr IVPB Q12H [facility] Rx# :[id number] Sodium Chloride 0.9% 1, 350 000 ml @ 50 mls/hr IV . Q20H [facility] Rx#:[id number] Oral 500 Output: Urine 300 550 Other: Voiding Method Indwelling Catheter Indwelling Catheter Indwelling Catheter # Bowel Movements 1 2 - Exam Patient is sitting up comfortably in bed in no acute distress. Patient is alert and oriented x3. Dressing is clean, dry and intact. The left lower extremity is warm and well perfused. Sensation intact. Calf is soft and nontender to palpation. Patient has full range of motion of the left foot and ankle. Neurovascular status and circulatory status are intact. - Labs CBC & Chem 7: 07/04/20 05:36 07/05/20 05:57 Labs: Abnormal Lab Results - Last 24 Hours (Table) 07/04/20 07/04/20 07/04/20 Range/Units 05:36 11:24 17:04 WBC 10.7 H (3.8-10.6) k/uL RBC 2.69 L (3.80-5.40) m/uL Hgb 8.7 L D (11.4-16.0) gm/dL Hct 28.7 L (34.0-46.0) % MCV 106.7 H (80.0-100.0) fL MCHC 30.4 L (31.0-37.0) g/dL RDW 15.9 H (11.5-15.5) % Plt Count 136 L (150-450) k/uL Neutrophils # 9.7 H (1.3-7.7) k/uL Lymphocytes # 0.6 L (1.0-4.8) k/uL Macrocytosis Marked A Sodium (135-145) mmol/L Potassium (3.5-5.5) mmol/L Carbon Dioxide (21.6-31.8) mmol/L BUN (9.0-27.0) mg/dL Creatinine (0.6-1.5) mg/dL Est GFR (CKD-EPI)AfAm (60.0-200.0) Est GFR (CKD-EPI)NonAf (60.0-200.0) Glucose (70-110) mg/dL POC Glucose (mg/dL) 211 H 159 H (75-99) mg/dL Calcium (8.7-10.3) mg/dL 07/04/20 07/05/20 07/05/20 Range/Units 21:18 05:57 07:03 WBC (3.8-10.6) k/uL RBC (3.80-5.40) m/uL Hgb (11.4-16.0) gm/dL Hct (34.0-46.0) % MCV (80.0-100.0) fL MCHC (31.0-37.0) g/dL RDW (11.5-15.5) % Plt Count (150-450) k/uL Neutrophils # (1.3-7.7) k/uL Lymphocytes # (1.0-4.8) k/uL Macrocytosis Sodium 134 L (135-145) mmol/L Potassium 3.2 L (3.5-5.5) mmol/L Carbon Dioxide 18.0 L (21.6-31.8) mmol/L BUN 55.0 H (9.0-27.0) mg/dL Creatinine 3.2 H (0.6-1.5) mg/dL Est GFR (CKD-EPI)AfAm 15.5 L (60.0-200.0) Est GFR (CKD-EPI)NonAf 13.4 L (60.0-200.0) Glucose 175 H (70-110) mg/dL POC Glucose (mg/dL) 156 H 193 H (75-99) mg/dL Calcium 7.4 L (8.7-10.3) mg/dL Microbiology - Last 24 Hours (Table) 06/28/20 15:51 Blood Culture - Final Blood No Growth after 144 hours Assessment and Plan (1) Closed left hip fracture Current Visit: Yes Status: Acute Code(s): S72.002A - FRACTURE OF UNSP PART OF NECK OF LEFT FEMUR, INIT SNOMED Code(s): 582235028 (2) Fall Current Visit: Yes Status: Acute Code(s): W19.XXXA - UNSPECIFIED FALL, INITIAL ENCOUNTER SNOMED Code(s): 7783373 Plan: Continue routine postop care and pain control. Continue hip dislocation precautions and use of abductor pillow for 6 weeks. Continue anticoagulation per internal medicine. Weightbearing as tolerated with a walker. Leave dressing in place for 10 days. Appreciate input from medicine. Patient is currently being treated for urinary tract infection, acute renal failure and metabolic acidosis. Anticipate discharge to ECF when cleared medically. Patient is cleared from an orthopedic standpoint. We will continue to follow the patient closely. <Cyrstal Gilbert - Last Filed: 07/05/20 15:09> Objective - Vital Signs Vital signs: Vital Signs Temp 97.9 F 07/05/20 07:00 Pulse 91 07/05/20 07:00 Resp 18 07/05/20 07:00 BP 126/85 07/05/20 07:00 Pulse Ox 94 L 07/05/20 07:00 Intake & Output 07/04/20 07/05/20 07/05/20 18:59 06:59 18:59 Intake Total 1250 Output Total 300 550 Balance 950 -550 Intake: Intake, IV Titration 750 Amount Linezolid 600 mg In 300 Dextrose/Water 1 300ml. bag @ 150 mls/hr IVPB Q12H [facility] Rx#:[id number] Piperacillin-Tazobactam 3 100 .375 gm In Sodium Chloride 0.9% 100 ml @ 25 mls/hr IVPB Q12H [facility] Rx# :[id number] Sodium Chloride 0.9% 1, 350 000 ml @ 50 mls/hr IV . Q20H [facility] Rx#:[id number] Oral 500 Output: Urine 300 550 Other: Voiding Method Indwelling Catheter Indwelling Catheter Indwelling Catheter # Bowel Movements 1 2 - Labs CBC & Chem 7: 07/04/20 05:36 07/05/20 05:57 Labs: Abnormal Lab Results - Last 24 Hours (Table) 07/04/20 07/04/20 07/04/20 Range/Units 05:36 17:04 21:18 WBC 10.7 H (3.8-10.6) k/uL RBC 2.69 L (3.80-5.40) m/uL Hgb 8.7 L D (11.4-16.0) gm/dL Hct 28.7 L (34.0-46.0) % MCV 106.7 H (80.0-100.0) fL MCHC 30.4 L (31.0-37.0) g/dL RDW 15.9 H (11.5-15.5) % Plt Count 136 L (150-450) k/uL Neutrophils # 9.7 H (1.3-7.7) k/uL Lymphocytes # 0.6 L (1.0-4.8) k/uL Macrocytosis Marked A PT (9.0-12.0) sec INR (<1.2) APTT (22.0-30.0) sec Sodium (135-145) mmol/L Potassium (3.5-5.5) mmol/L Carbon Dioxide (21.6-31.8) mmol/L BUN (9.0-27.0) mg/dL Creatinine (0.6-1.5) mg/dL Est GFR (CKD-EPI)AfAm (60.0-200.0) Est GFR (CKD-EPI)NonAf (60.0-200.0) Glucose (70-110) mg/dL POC Glucose (mg/dL) 159 H 156 H (75-99) mg/dL Calcium (8.7-10.3) mg/dL 07/05/20 07/05/20 07/05/20 Range/Units 05:57 07:03 10:31 WBC (3.8-10.6) k/uL RBC (3.80-5.40) m/uL Hgb (11.4-16.0) gm/dL Hct (34.0-46.0) % MCV (80.0-100.0) fL MCHC (31.0-37.0) g/dL RDW (11.5-15.5) % Plt Count (150-450) k/uL Neutrophils # (1.3-7.7) k/uL Lymphocytes # (1.0-4.8) k/uL Macrocytosis PT 19.3 H (9.0-12.0) sec INR 2.0 H (<1.2) APTT 34.2 H (22.0-30.0) sec Sodium 134 L (135-145) mmol/L Potassium 3.2 L (3.5-5.5) mmol/L Carbon Dioxide 18.0 L (21.6-31.8) mmol/L BUN 55.0 H (9.0-27.0) mg/dL Creatinine 3.2 H (0.6-1.5) mg/dL Est GFR (CKD-EPI)AfAm 15.5 L (60.0-200.0) Est GFR (CKD-EPI)NonAf 13.4 L (60.0-200.0) Glucose 175 H (70-110) mg/dL POC Glucose (mg/dL) 193 H (75-99) mg/dL Calcium 7.4 L (8.7-10.3) mg/dL 07/05/20 Range/Units 11:46 WBC (3.8-10.6) k/uL RBC (3.80-5.40) m/uL Hgb (11.4-16.0) gm/dL Hct (34.0-46.0) % MCV (80.0-100.0) fL MCHC (31.0-37.0) g/dL RDW (11.5-15.5) % Plt Count (150-450) k/uL Neutrophils # (1.3-7.7) k/uL Lymphocytes # (1.0-4.8) k/uL Macrocytosis PT (9.0-12.0) sec INR (<1.2) APTT (22.0-30.0) sec Sodium (135-145) mmol/L Potassium (3.5-5.5) mmol/L Carbon Dioxide (21.6-31.8) mmol/L BUN (9.0-27.0) mg/dL Creatinine (0.6-1.5) mg/dL Est GFR (CKD-EPI)AfAm (60.0-200.0) Est GFR (CKD-EPI)NonAf (60.0-200.0) Glucose (70-110) mg/dL POC Glucose (mg/dL) 228 H (75-99) mg/dL Calcium (8.7-10.3) mg/dL Microbiology - Last 24 Hours (Table) 06/28/20 15:51 Blood Culture - Final Blood No Growth after 144 hours
--- NOTE | 2020-07-05 10:36 | CDI ---
Documentation Clarification Form Date: 07/05/2020 10:32:23 AM From: Razia Armas RN, CCDS Admit Date: 06/27/2020 09:39:00 PM Patient Name: Amelia Colin Visit Number: [id number] ATTENTION: The Clinical Documentation Specialists (CDI) and [facility] Coding Staff appreciate your assistance in clarifying documentation. Please respond to the clarification below the line at the bottom and electronically sign. The CDI & [facility] Coding staff will review the response and follow-up if needed. Please note: Queries are made part of the Legal Health Record. If you have any questions, please contact the author of this message via ITS. Dr. Kathie Quiles Anemia is documented in the H&P and Progress Notes and requires further specificity. History/Risk Factors: RA, DJD, Asthma, Fibromyagia, GIB, sigmoid diverticulosis, atrial fib, CKD stage 3 Clinical indicators: 06/28-06/30 H&P and Progress Notes: "Anemia, normocytic." Hemoglobin: 11.2/9.8/11/11.3/8.7 Hematocrit: 35.6/31.9/32.6/35.8/37.7/28.7 07/02 Left hip hemiarthroplasty with 100 ml EBL Treatment: Feosol 325 mg PO HS 06/27 2L 0.9% NS IVF Bolus followed by and maintained @ 100 cc/hr Labs AM daily In order to capture the severity of condition, please clarify the type of anemia and etiology if known. Acute blood loss anemia Acute on chronic blood loss anemia Chronic blood loss anemia Iron deficiency anemia Drug induced anemia Anemia of chronic kidney disease Anemia of chronic Disease Unable to determine Other, please specify (Last Form Revision: November 2019) Anemia of chronic Disease MTDD
[2020-07-05 10:51] LABS: Partial Thromboplastin Time 34.2 sec (22.0-30.0)
[2020-07-05 11:48] LABS: Glucose,Whole Blood 228 mg/dL (75-99)
[2020-07-05] MEDS: PIPERACILLIN-TAZOBACTAM 3.375 GM in SODIUM CHLORIDE 0.9% 100 ML IVPB SCH ×2 (11:55→21:37)
[2020-07-05] MEDS: LINEZOLID 600 MG in DEXTROSE/WATER 1 300ML.BAG IVPB SCH (11:56)
[2020-07-05] MEDS: ONDANSETRON 4 MG/2 ML VIAL IVP PRN (12:29)
[2020-07-05] MEDS: THIAMINE 100 MG TAB PO SCH (12:34)
[2020-07-05] MEDS: FOLIC ACID 1 MG TAB PO SCH (12:34)
[2020-07-05 14:52] LABS: Prothrombin Time 19.3 sec (9.0-12.0)
--- NOTE | 2020-07-05 15:13 | PN ---
PROGRESS NOTE Patient is seen for follow up for acute kidney injury and chronic kidney disease. She is currently lying in bed. She is comfortable, not in any acute distress. PHYSICAL EXAMINATION: On examination, blood pressure was 126/85, heart rate 91 per minute, patient is afebrile. Examination of the heart S1, S2. Examination of the lungs, bilateral breath sounds are heard. Abdomen is soft. Examination of lower extremities shows no evidence of edema. TECH WRITER exam shows patient is moving all four extremities. LABS: Show sodium 134, potassium 3.2, chloride 104, CO2 is 18, BUN 55, creatinine 3.2, calcium 7.4 mg/dL. ASSESSMENT: 1. Acute kidney injury secondary to acute tubular necrosis from infection, hypotension. Serum creatinine fairly stable, staying at about 3.2-3.3 mg/dL for the last couple of days. 2. Left femoral fracture status post fall, status post left hip hemiarthroplasty. 3. Chronic kidney disease stage 3. Baseline creatinine about 1.5. 4. Atrial fibrillation with an rapid ventricular response, status post Cardizem drip. 5. Urinary tract infection with urine culture growing Citrobacter and Enterococcus. 6. Chronic diastolic congestive heart failure. 7. Hypotension maintained on midodrine with history of adrenal insufficiency diagnosed on one of her previous admissions, maintained on Solu-Cortef. PLAN: Continue to encourage increased oral intake. Continue to avoid nephrotoxic medications. MMODL / IJN: [id number] /
--- NOTE | 2020-07-05 15:36 | P.PN ---
Subjective 74-year-old female admitted for fall and left hip fracture. Patient is presently broad-spectrum antibiotics. Patient is supposed to undergo surgical intervention for her fractured today but patient is hyponatremic because of which patient didn't undergo surgery today. Nephrology is following the patient patient does have acute renal failure as well patient is receiving IV fluids at 50 mL per hour along with free water restriction as per nephrology. Nephrology believes elevation in creatinine which is a 2.3 today worse than yesterday and the same as admission is secondary to acute tubular necrosis from hypotension patient does have metabolic acidosis from that. Patient is presently on linezolid and Zosyn for enterococcus ECM and Citrobacter respectively. Patient is high risk for nephrotoxicity because of which patient is a linezolid. 07/02/2020 Patient clinically doing well but the her serum creatinine continued to get worse nephrology is following the patient and patient the serum sodium is 131 and patient should be able to go for surgery today in medically stable to go for surgery. Acute renal failure was believed to be secondary to acute tubular necrosis from infection and hypotension admission, patient blood pressures prior presently stable but expect to have perioperative hypotension and patient was closely monitored 07/03/2020 Patient is postoperative day 1. Less left hip hemiarthroplasty. Patient is having some pain in the surgical site area no other significant abnormality is a do not have any labs available from today at 07/04/2020 Due to postop left hip hemiarthroplasty, family reports patient is generally weak. Patient did receive IV Dilaudid. Continued on IV hydration with normal saline, creatinine 3.3 today. On 2 L nasal cannula saturating 99%. No fever. 07/05/20 Blood pressure has remained stable, on Cortef postoperatively which will be tapered down. She remains on IV hydration, creatinine slowly improved to 3.3. Follow-up urine culture showed no growth at this time, previously on Zyvox, now Zosyn. Hedged with therapy, reports she tolerated activity, no shortness of breath. Constitutional: Denied any fatigue denied any fever. Cardio vascular: denied any chest pain, palpitations Gastrointestinal denied any nausea vomiting Pulmonary: Denied any shortness of breath cough Neurologic denied any new focal deficits All inpatient medications were reviewed and appropriate changes in these medications as dictated in the interval history and assessment and plan. Objective - Vital Signs Vital signs: Vital Signs Temp 97.9 F 07/05/20 07:00 Pulse 91 07/05/20 07:00 Resp 18 07/05/20 07:00 BP 126/85 07/05/20 07:00 Pulse Ox 94 L 07/05/20 07:00 Intake & Output 07/04/20 07/05/20 07/05/20 18:59 06:59 18:59 Intake Total 1250 Output Total 300 550 Balance 950 -550 Intake: Intake, IV Titration 750 Amount Linezolid 600 mg In 300 Dextrose/Water 1 300ml. bag @ 150 mls/hr IVPB Q12H [facility] Rx#:[id number] Piperacillin-Tazobactam 3 100 .375 gm In Sodium Chloride 0.9% 100 ml @ 25 mls/hr IVPB Q12H [facility] Rx# :[id number] Sodium Chloride 0.9% 1, 350 000 ml @ 50 mls/hr IV . Q20H [facility] Rx#:[id number] Oral 500 Output: Urine 300 550 Other: Voiding Method Indwelling Catheter Indwelling Catheter Indwelling Catheter # Bowel Movements 1 2 - Exam PHYSICAL EXAMINATION: GENERAL: The patient is alert and oriented x3, not in any acute distress. Well developed, well nourished. HEENT: Pupils are round and equally reacting to light. EOMI. No scleral icterus. No conjunctival pallor. Normocephalic, atraumatic. No pharyngeal erythema. No thyromegaly. CARDIOVASCULAR: S1 and S2 present. No murmurs, rubs, or gallops. PULMONARY: Chest is clear to auscultation, no wheezing or crackles. ABDOMEN: Soft, nontender, nondistended, normoactive bowel sounds. No palpable organomegaly. MUSCULOSKELETAL: Deferred to arthritic surgery EXTREMITIES: No cyanosis, clubbing, or pedal edema. NEUROLOGICAL: Gross neurological examination did not reveal any focal deficits. SKIN: No rashes. - Labs CBC & Chem 7: 07/04/20 05:36 07/05/20 05:57 Labs: Abnormal Lab Results - Last 24 Hours (Table) 07/04/20 07/04/20 07/04/20 Range/Units 05:36 17:04 21:18 WBC 10.7 H (3.8-10.6) k/uL RBC 2.69 L (3.80-5.40) m/uL Hgb 8.7 L D (11.4-16.0) gm/dL Hct 28.7 L (34.0-46.0) % MCV 106.7 H (80.0-100.0) fL MCHC 30.4 L (31.0-37.0) g/dL RDW 15.9 H (11.5-15.5) % Plt Count 136 L (150-450) k/uL Neutrophils # 9.7 H (1.3-7.7) k/uL Lymphocytes # 0.6 L (1.0-4.8) k/uL Macrocytosis Marked A PT (9.0-12.0) sec INR (<1.2) APTT (22.0-30.0) sec Sodium (135-145) mmol/L Potassium (3.5-5.5) mmol/L Carbon Dioxide (21.6-31.8) mmol/L BUN (9.0-27.0) mg/dL Creatinine (0.6-1.5) mg/dL Est GFR (CKD-EPI)AfAm (60.0-200.0) Est GFR (CKD-EPI)NonAf (60.0-200.0) Glucose (70-110) mg/dL POC Glucose (mg/dL) 159 H 156 H (75-99) mg/dL Calcium (8.7-10.3) mg/dL 07/05/20 07/05/20 07/05/20 Range/Units 05:57 07:03 10:31 WBC (3.8-10.6) k/uL RBC (3.80-5.40) m/uL Hgb (11.4-16.0) gm/dL Hct (34.0-46.0) % MCV (80.0-100.0) fL MCHC (31.0-37.0) g/dL RDW (11.5-15.5) % Plt Count (150-450) k/uL Neutrophils # (1.3-7.7) k/uL Lymphocytes # (1.0-4.8) k/uL Macrocytosis PT 19.3 H (9.0-12.0) sec INR 2.0 H (<1.2) APTT 34.2 H (22.0-30.0) sec Sodium 134 L (135-145) mmol/L Potassium 3.2 L (3.5-5.5) mmol/L Carbon Dioxide 18.0 L (21.6-31.8) mmol/L BUN 55.0 H (9.0-27.0) mg/dL Creatinine 3.2 H (0.6-1.5) mg/dL Est GFR (CKD-EPI)AfAm 15.5 L (60.0-200.0) Est GFR (CKD-EPI)NonAf 13.4 L (60.0-200.0) Glucose 175 H (70-110) mg/dL POC Glucose (mg/dL) 193 H (75-99) mg/dL Calcium 7.4 L (8.7-10.3) mg/dL 07/05/20 Range/Units 11:46 WBC (3.8-10.6) k/uL RBC (3.80-5.40) m/uL Hgb (11.4-16.0) gm/dL Hct (34.0-46.0) % MCV (80.0-100.0) fL MCHC (31.0-37.0) g/dL RDW (11.5-15.5) % Plt Count (150-450) k/uL Neutrophils # (1.3-7.7) k/uL Lymphocytes # (1.0-4.8) k/uL Macrocytosis PT (9.0-12.0) sec INR (<1.2) APTT (22.0-30.0) sec Sodium (135-145) mmol/L Potassium (3.5-5.5) mmol/L Carbon Dioxide (21.6-31.8) mmol/L BUN (9.0-27.0) mg/dL Creatinine (0.6-1.5) mg/dL Est GFR (CKD-EPI)AfAm (60.0-200.0) Est GFR (CKD-EPI)NonAf (60.0-200.0) Glucose (70-110) mg/dL POC Glucose (mg/dL) 228 H (75-99) mg/dL Calcium (8.7-10.3) mg/dL Microbiology - Last 24 Hours (Table) 06/28/20 15:51 Blood Culture - Final Blood No Growth after 144 hours Assessment and Plan Assessment: -Fall and developed a fracture: Patient is status post left hip hemiarthroplasty clinically doing well except for mild pain. -atrial fibrillation presently rate controlled continue with present medications at this time -Urinary tract infection with Citrobacter and enterococcus: On Zosyn and Zyvox, follow-up urine culture showed no growth at this time. -Acute renal failure secondary to acute tubular necrosis from sepsis and hypotension. Creatinine 3.2, monitoring BMP. Blood pressure has been stable, Cortef will be titrated down. -hyponatremia etiology is not clear patient is being free water restricted and patient is also getting gentle hydration via IV normal saline, sodium improving with IV hydration, nephrology is following. -mild metabolic acidosis secondary to acute renal failure: On oral sodium bicarbonate -Hypertension -Type 2 diabetes mellitus -Hypothyroidism -Depression -DVT prophylaxis with subcutaneous heparin -
[2020-07-05 16:54] LABS: Glucose,Whole Blood 140 mg/dL (75-99)
[2020-07-05] MEDS: LACTOBACILLUS ACIDOPH & BULGAR 1 EACH PACKET PO SCH (17:53)
[2020-07-05] MEDS ORDERED: WARFARIN 2 MG TAB PO ONE (18:00)
[2020-07-05 20:23] LABS: Glucose,Whole Blood 133 mg/dL (75-99)
[2020-07-05] MEDS: MULTIVITAMINS, THERA 1 EACH TAB PO SCH (20:30)
--- NOTE | 2020-07-05 20:43 | PN ---
PROGRESS NOTE DATE OF SERVICE: 07/05/2020 REASON FOR FOLLOWUP: Urinary tract infection. INTERVAL HISTORY: Patient is currently afebrile. The patient is breathing comfortably. The patient is complaining of some nausea and no appetite because of discomfort. No chest pain, shortness of breath or cough and no diarrhea. PHYSICAL EXAMINATION: Blood pressure 122/75 with a pulse of 64, temperature 97.7, she is 98% on room air. General description is an elderly female up in the bed in no distress. Respiratory system: Unlabored breathing, clear to auscultation anteriorly. Heart S1, S2. Regular rate and rhythm. Abdomen is soft, no tenderness, no rigidity. LABS: Creatinine 3.2. DIAGNOSTIC IMPRESSION AND PLAN: Patient with urinary tract infection. Urine did shows Citrobacter enterococcus faecium. Patient has been treated with Zosyn. has been discontinued. Repeat UA and culture and monitor clinical course closely. MMODL / IJN: [id number] /
[2020-07-06] MEDS: SODIUM CHLORIDE 0.9% 1,000 ML IV SCH ×2 (01:21→05:34)
[2020-07-06] MEDS: LEVOTHYROXINE 88 MCG TAB PO SCH (05:34)
[2020-07-06 06:15] LABS: Appearance,Urine Cloudy (Clear); Bacteria,Urine Occasional /hpf; Bilirubin,Urine Negative (Negative); Blood,Urine Trace (Negative); Color,Urine Light Yellow; Glucose,Urine (UA) Negative (Negative); Ketones,Urine Negative (Negative); Leukocyte Esterase,Urine Moderate (Negative); Mucus,Urine Occasional /hpf; Nitrite,Urine Negative (Negative); PH, Urine 5.5 (5.0-8.0); Protein,Urine Trace (Negative); RBC,Urine 2 /hpf (0-5); Specific Gravity,Urine 1.008 (1.001-1.035); Squamous Epithelial Cell,Urine 2 /hpf (0-4); Urobilinogen,Urine <2.0 mg/dL (<2.0); WBC,Urine 11 /hpf (0-5)
[2020-07-06 06:24] LABS: Anisocytosis Slight; Basophils % (A) 0 %; Eosinophils % (A) 0 %; HCT 22.3 % (34.0-46.0); Hypochromasia Moderate; Lymphocytes # (A) 0.5 k/uL (1.0-4.8); Lymphocytes % (A) 10 %; Macrocytosis Slight; Mean Platelet Volume 9.3; Monocytes # (A) 0.1 k/uL (0-1.0); Monocytes % (A) 2 %; Neutrophils # (A) 4.8 k/uL (1.3-7.7); Neutrophils % (A) 87 %; Platelet Count 107 k/uL (150-450); Poikilocytosis Slight; RDW 16.8 % (11.5-15.5); WBC 5.5 k/uL (3.8-10.6)
[2020-07-06 06:30] LABS: HGB 7.1 gm/dL (11.4-16.0)
[2020-07-06 07:01] LABS: Glucose,Whole Blood 169 mg/dL (75-99)
[2020-07-06] MEDS: HYDROCORTISONE SUCCINATE 100 MG/2 ML VIAL IV SCH ×2 (07:54→20:48)
[2020-07-06] MEDS: BALSALAZIDE DISODIUM 750 MG CAPSULE PO SCH ×3 (07:55→17:06)
[2020-07-06] MEDS: SODIUM BICARBONATE TAB 650 MG TAB PO SCH ×2 (07:56→20:48)
[2020-07-06] MEDS: PREGABALIN 100 MG CAP PO SCH (07:56)
[2020-07-06] MEDS: SENNOSIDES-DOCUSATE SODIUM 1 EACH TAB PO SCH (07:56)
[2020-07-06] MEDS: THIAMINE 100 MG TAB PO SCH (07:57)
[2020-07-06] MEDS: FOLIC ACID 1 MG TAB PO SCH (07:57)
[2020-07-06] MEDS: INSULIN ASPART (NovoLOG) 100 UNIT/ML VIAL SQ SCH ×4 (07:57→20:48)
[2020-07-06] MEDS: PANTOPRAZOLE 40 MG TABLET PO SCH ×2 (07:57→17:08)
[2020-07-06] MEDS: MIDODRINE 5 MG TAB PO SCH ×3 (07:57→15:14)
[2020-07-06] MEDS: METOPROLOL TARTRATE 25 MG TAB PO SCH ×3 (07:57→20:46)
[2020-07-06] MEDS: PIPERACILLIN-TAZOBACTAM 3.375 GM in SODIUM CHLORIDE 0.9% 100 ML IVPB SCH ×2 (09:11→21:41)
--- NOTE | 2020-07-06 09:19 | P.PN ---
Subjective Progress Note Date: 07/06/20 This is a 74-year-old female who is status post left hip hemiarthroplasty. This is postoperative day #4. The patient is seen and evaluated at bedside today. Patient states that she has some soreness in the left hip today. Patient denies any new symptoms today. Objective - Vital Signs Vital signs: Vital Signs Temp 97.8 F 07/06/20 06:52 Pulse 87 07/06/20 06:52 Resp 14 07/06/20 06:52 BP 101/61 07/06/20 06:52 Pulse Ox 94 L 07/06/20 06:52 Intake & Output 07/05/20 07/06/20 07/06/20 18:59 06:59 18:59 Intake Total 240 Output Total 500 970 Balance -260 -970 Intake: Oral 240 Output: Urine 500 970 Other: Voiding Method Indwelling Catheter Indwelling Catheter Indwelling Catheter - Exam Patient is sitting up comfortably in bed in no acute distress. Patient is alert and oriented x3. Dressing is clean, dry and intact. The left lower extremity is warm and well perfused. Sensation intact. Calf is soft and nontender to palpation. Patient has full range of motion of the left foot and ankle. Patient is able to actively flex and extend the left lower extremity, with some limitation secondary to pain. Neurovascular status and circulatory status are intact. - Labs CBC & Chem 7: 07/06/20 05:32 07/05/20 05:57 Labs: Abnormal Lab Results - Last 24 Hours (Table) 07/05/20 07/05/20 07/05/20 Range/Units 05:57 10:31 11:46 RBC (3.80-5.40) m/uL Hgb (11.4-16.0) gm/dL Hct (34.0-46.0) % RDW (11.5-15.5) % Plt Count (150-450) k/uL Lymphocytes # (1.0-4.8) k/uL PT 19.3 H (9.0-12.0) sec INR 2.0 H (<1.2) APTT 34.2 H (22.0-30.0) sec Sodium 134 L (135-145) mmol/L Potassium 3.2 L (3.5-5.5) mmol/L Carbon Dioxide 18.0 L (21.6-31.8) mmol/L BUN 55.0 H (9.0-27.0) mg/dL Creatinine 3.2 H (0.6-1.5) mg/dL Est GFR (CKD-EPI)AfAm 15.5 L (60.0-200.0) Est GFR (CKD-EPI)NonAf 13.4 L (60.0-200.0) Glucose 175 H (70-110) mg/dL POC Glucose (mg/dL) 228 H (75-99) mg/dL Calcium 7.4 L (8.7-10.3) mg/dL Urine Appearance (Clear) Urine Protein (Negative) Urine Blood (Negative) Ur Leukocyte Esterase (Negative) Urine WBC (0-5) /hpf Urine Bacteria (None) /hpf Urine Mucus (None) /hpf 07/05/20 07/05/20 07/06/20 Range/Units 16:51 20:22 05:32 RBC 2.30 L (3.80-5.40) m/uL Hgb 7.1 L D (11.4-16.0) gm/dL Hct 22.3 L (34.0-46.0) % RDW 16.8 H (11.5-15.5) % Plt Count 107 L (150-450) k/uL Lymphocytes # 0.5 L (1.0-4.8) k/uL PT (9.0-12.0) sec INR (<1.2) APTT (22.0-30.0) sec Sodium (135-145) mmol/L Potassium (3.5-5.5) mmol/L Carbon Dioxide (21.6-31.8) mmol/L BUN (9.0-27.0) mg/dL Creatinine (0.6-1.5) mg/dL Est GFR (CKD-EPI)AfAm (60.0-200.0) Est GFR (CKD-EPI)NonAf (60.0-200.0) Glucose (70-110) mg/dL POC Glucose (mg/dL) 140 H 133 H (75-99) mg/dL Calcium (8.7-10.3) mg/dL Urine Appearance (Clear) Urine Protein (Negative) Urine Blood (Negative) Ur Leukocyte Esterase (Negative) Urine WBC (0-5) /hpf Urine Bacteria (None) /hpf Urine Mucus (None) /hpf 07/06/20 07/06/20 Range/Units 06:00 06:59 RBC (3.80-5.40) m/uL Hgb (11.4-16.0) gm/dL Hct (34.0-46.0) % RDW (11.5-15.5) % Plt Count (150-450) k/uL Lymphocytes # (1.0-4.8) k/uL PT (9.0-12.0) sec INR (<1.2) APTT (22.0-30.0) sec Sodium (135-145) mmol/L Potassium (3.5-5.5) mmol/L Carbon Dioxide (21.6-31.8) mmol/L BUN (9.0-27.0) mg/dL Creatinine (0.6-1.5) mg/dL Est GFR (CKD-EPI)AfAm (60.0-200.0) Est GFR (CKD-EPI)NonAf (60.0-200.0) Glucose (70-110) mg/dL POC Glucose (mg/dL) 169 H (75-99) mg/dL Calcium (8.7-10.3) mg/dL Urine Appearance Cloudy H (Clear) Urine Protein Trace H (Negative) Urine Blood Trace H (Negative) Ur Leukocyte Esterase Moderate H (Negative) Urine WBC 11 H (0-5) /hpf Urine Bacteria Occasional H (None) /hpf Urine Mucus Occasional H (None) /hpf Assessment and Plan (1) Closed left hip fracture Current Visit: Yes Status: Acute Code(s): S72.002A - FRACTURE OF UNSP PART OF NECK OF LEFT FEMUR, INIT SNOMED Code(s): 522612363 (2) Fall Current Visit: Yes Status: Acute Code(s): W19.XXXA - UNSPECIFIED FALL, INITIAL ENCOUNTER SNOMED Code(s): 2123818 Plan: Continue routine postop care and pain control. Continue hip dislocation precautions and use of abductor pillow for 6 weeks. Continue anticoagulation per internal medicine. Weightbearing as tolerated with a walker. Leave dressing in place for 10 days. Appreciate input from medicine. Patient is currently being treated for urinary tract infection, acute renal failure and metabolic acidosis. Anticipate discharge to [facility] when cleared medically. Patient is cleared from an orthopedic standpoint. We will continue to follow the patient closely.
[2020-07-06 09:47] LABS: African American GFR (CKD) 15.5 (60.0-200.0); Anion Gap 12.1 mmol/L (4.00-12.00); BUN/Creat Ratio 17.19 Ratio (12.00-20.00); Calcium 7.8 mg/dL (8.7-10.3); Carbon Dioxide 19.9 mmol/L (21.6-31.8); Non-African American GFR(CKD) 13.4 (60.0-200.0); Potassium 2.9 mmol/L (3.5-5.5)
[2020-07-06 09:50] LABS: INR 2.01 (0.90-1.11); Prothrombin Time 20.9 sec (9.9-11.9)
[2020-07-06] MEDS ORDERED: Potassium Replacement Protocol 1 EACH MISC MISCELLANE PRN (09:54)
[2020-07-06] MEDS: POTASSIUM CHLORIDE ER 20 MEQ TAB.ER PO SCH ×3 (10:50→13:34)
[2020-07-06 11:44] LABS: Glucose,Whole Blood 180 mg/dL (75-99)
[2020-07-06] MEDS: LACTOBACILLUS ACIDOPH & BULGAR 1 EACH PACKET PO SCH (12:02)
--- NOTE | 2020-07-06 13:36 | P.PN ---
Subjective 74-year-old female admitted for fall and left hip fracture. Patient is presently broad-spectrum antibiotics. Patient is supposed to undergo surgical intervention for her fractured today but patient is hyponatremic because of which patient didn't undergo surgery today. Nephrology is following the patient patient does have acute renal failure as well patient is receiving IV fluids at 50 mL per hour along with free water restriction as per nephrology. Nephrology believes elevation in creatinine which is a 2.3 today worse than yesterday and the same as admission is secondary to acute tubular necrosis from hypotension patient does have metabolic acidosis from that. Patient is presently on linezolid and Zosyn for enterococcus ECM and Citrobacter respectively. Patient is high risk for nephrotoxicity because of which patient is a linezolid. 07/02/2020 Patient clinically doing well but the her serum creatinine continued to get worse nephrology is following the patient and patient the serum sodium is 131 and patient should be able to go for surgery today in medically stable to go for surgery. Acute renal failure was believed to be secondary to acute tubular necrosis from infection and hypotension admission, patient blood pressures prior presently stable but expect to have perioperative hypotension and patient was closely monitored 07/03/2020 Patient is postoperative day 1. Less left hip hemiarthroplasty. Patient is having some pain in the surgical site area no other significant abnormality is a do not have any labs available from today at 07/04/2020 Due to postop left hip hemiarthroplasty, family reports patient is generally weak. Patient did receive IV Dilaudid. Continued on IV hydration with normal saline, creatinine 3.3 today. On 2 L nasal cannula saturating 99%. No fever. 07/05/20 Blood pressure has remained stable, on Cortef postoperatively which will be tapered down. She remains on IV hydration, creatinine slowly improved to 3.3. Follow-up urine culture showed no growth at this time, previously on Zyvox, now Zosyn. Hedged with therapy, reports she tolerated activity, no shortness of breath. 07/06/20 Date for postop left hemiarthroplasty, patient sleeping and lethargic likely due to Lyrica as patient has generally been awake prior to receiving regular doses of Lyrica per nursing. No fever, on room air saturating above 90%. BP 101/61, stress dose Cortef which is being tapered down. Antimicrobial therapy with Zosyn, no growth follow-up urine cultures. Blood sugars controlled Constitutional: Denied any fatigue denied any fever. Cardio vascular: denied any chest pain, palpitations Gastrointestinal denied any nausea vomiting Pulmonary: Denied any shortness of breath cough Neurologic denied any new focal deficits All inpatient medications were reviewed and appropriate changes in these medications as dictated in the interval history and assessment and plan. Objective - Vital Signs Vital signs: Vital Signs Temp 97.8 F 07/06/20 06:52 Pulse 87 07/06/20 06:52 Resp 14 07/06/20 06:52 BP 101/61 07/06/20 06:52 Pulse Ox 94 L 07/06/20 06:52 Intake & Output 07/05/20 07/06/20 07/06/20 18:59 06:59 18:59 Intake Total 240 Output Total 500 970 Balance -260 -970 Intake: Oral 240 Output: Urine 500 970 Other: Voiding Method Indwelling Catheter Indwelling Catheter Indwelling Catheter - Exam PHYSICAL EXAMINATION: GENERAL: The patient is drowsy, in no stress. Well developed, well nourished. HEENT: Pupils are round and equally reacting to light. EOMI. No scleral icterus. No conjunctival pallor. Normocephalic, atraumatic. No pharyngeal erythema. No thyromegaly. CARDIOVASCULAR: S1 and S2 present. No murmurs, rubs, or gallops. PULMONARY: Chest is clear to auscultation, no wheezing or crackles. ABDOMEN: Soft, nontender, nondistended, normoactive bowel sounds. No palpable organomegaly. MUSCULOSKELETAL: Deferred to arthritic surgery EXTREMITIES: No cyanosis, clubbing, or pedal edema. NEUROLOGICAL: Sedated, unable to assess mentation SKIN: No rashes. - Labs CBC & Chem 7: 07/06/20 05:32 07/06/20 05:32 Labs: Abnormal Lab Results - Last 24 Hours (Table) 07/05/20 07/05/20 07/05/20 Range/Units 10:31 16:51 20:22 RBC (3.80-5.40) m/uL Hgb (11.4-16.0) gm/dL Hct (34.0-46.0) % RDW (11.5-15.5) % Plt Count (150-450) k/uL Lymphocytes # (1.0-4.8) k/uL PT 19.3 H (9.0-12.0) sec INR 2.0 H (<1.2) APTT 34.2 H (22.0-30.0) sec Potassium (3.5-5.5) mmol/L Carbon Dioxide (21.6-31.8) mmol/L Anion Gap (4.00-12.00) mmol/L BUN (9.0-27.0) mg/dL Creatinine (0.6-1.5) mg/dL Est GFR (CKD-EPI)AfAm (60.0-200.0) Est GFR (CKD-EPI)NonAf (60.0-200.0) Glucose (70-110) mg/dL POC Glucose (mg/dL) 140 H 133 H (75-99) mg/dL Calcium (8.7-10.3) mg/dL C-Reactive Protein (0.0-0.8) mg/dL Urine Appearance (Clear) Urine Protein (Negative) Urine Blood (Negative) Ur Leukocyte Esterase (Negative) Urine WBC (0-5) /hpf Urine Bacteria (None) /hpf Urine Mucus (None) /hpf 07/06/20 07/06/20 07/06/20 Range/Units 05:32 05:32 05:32 RBC 2.30 L (3.80-5.40) m/uL Hgb 7.1 L D (11.4-16.0) gm/dL Hct 22.3 L (34.0-46.0) % RDW 16.8 H (11.5-15.5) % Plt Count 107 L (150-450) k/uL Lymphocytes # 0.5 L (1.0-4.8) k/uL PT 20.9 H (9.0-12.0) sec INR 2.01 H (<1.2) APTT (22.0-30.0) sec Potassium 2.9 L (3.5-5.5) mmol/L Carbon Dioxide 19.9 L (21.6-31.8) mmol/L Anion Gap 12.10 H (4.00-12.00) mmol/L BUN 55.0 H (9.0-27.0) mg/dL Creatinine 3.2 H (0.6-1.5) mg/dL Est GFR (CKD-EPI)AfAm 15.5 L (60.0-200.0) Est GFR (CKD-EPI)NonAf 13.4 L (60.0-200.0) Glucose 146 H (70-110) mg/dL POC Glucose (mg/dL) (75-99) mg/dL Calcium 7.8 L (8.7-10.3) mg/dL C-Reactive Protein 2.0 H (0.0-0.8) mg/dL Urine Appearance (Clear) Urine Protein (Negative) Urine Blood (Negative) Ur Leukocyte Esterase (Negative) Urine WBC (0-5) /hpf Urine Bacteria (None) /hpf Urine Mucus (None) /hpf 07/06/20 07/06/20 07/06/20 Range/Units 06:00 06:59 11:42 RBC (3.80-5.40) m/uL Hgb (11.4-16.0) gm/dL Hct (34.0-46.0) % RDW (11.5-15.5) % Plt Count (150-450) k/uL Lymphocytes # (1.0-4.8) k/uL PT (9.0-12.0) sec INR (<1.2) APTT (22.0-30.0) sec Potassium (3.5-5.5) mmol/L Carbon Dioxide (21.6-31.8) mmol/L Anion Gap (4.00-12.00) mmol/L BUN (9.0-27.0) mg/dL Creatinine (0.6-1.5) mg/dL Est GFR (CKD-EPI)AfAm (60.0-200.0) Est GFR (CKD-EPI)NonAf (60.0-200.0) Glucose (70-110) mg/dL POC Glucose (mg/dL) 169 H 180 H (75-99) mg/dL Calcium (8.7-10.3) mg/dL C-Reactive Protein (0.0-0.8) mg/dL Urine Appearance Cloudy H (Clear) Urine Protein Trace H (Negative) Urine Blood Trace H (Negative) Ur Leukocyte Esterase Moderate H (Negative) Urine WBC 11 H (0-5) /hpf Urine Bacteria Occasional H (None) /hpf Urine Mucus Occasional H (None) /hpf Microbiology - Last 24 Hours (Table) 07/06/20 06:00 Urine Culture - Preliminary Urine,Clean Catch Assessment and Plan Assessment: -Fall and developed a fracture: Patient is status post left hip hemiarthroplasty clinically doing well: -Possible toxic encephalopathy: Clear, causing significant sedation, we will discontinue, can be restarted on lower dose of Lyrica 75 twice daily if needed. -atrial fibrillation presently rate controlled continue with present medications at this time -Urinary tract infection with Citrobacter and enterococcus: On Zosyn follow-up urine culture showed no growth at this time. -Acute renal failure secondary to acute tubular necrosis from sepsis and hypotension. Creatinine stable 3.2. Blood pressure stable, on Cortef twice daily -Hyponatremia: Etiology unclear, patient is on oral fluid restriction receiving gentle IV hydration, sodium now normalized. -mild metabolic acidosis secondary to acute renal failure: On oral sodium bicarbonate -Hypertension -Type 2 diabetes mellitus blood sugars controlled, sliding scale coverage -Hypothyroidism -Depression -DVT prophylaxis with subcutaneous heparin -
--- NOTE | 2020-07-06 15:28 | PN ---
PROGRESS NOTE Patient is seen for followup for acute kidney injury on top of chronic kidney disease. The patient is lying in bed. She is comfortable, not in any acute distress. She did eat this morning according to nursing staff. PHYSICAL EXAMINATION: Blood pressure 101/61, heart rate 87 per minute, she is afebrile. Examination of the heart S1, S2. Examination of the lungs, bilateral breath sounds are heard. Abdomen is soft, nontender. 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 LAB: Shows hemoglobin 7.1 sodium 139, potassium 2.9, serum creatinine 3.2, CO2 is 19.9. ASSESSMENT: 1. Acute kidney injury, currently stable, nonoliguric. 2. Left femoral fracture status post fall, left hip hemiarthroplasty. 3. Chronic kidney disease stage III. Baseline creatinine about 1.5. 4. Atrial fibrillation with rapid ventricular response, status post Cardizem drip. 5. Urinary tract infection with urine culture growing Citrobacter and Enterococcus, maintained on antibiotics. 6. Hypotension, maintained on midodrine. Patient also has adrenal insufficiency, currently on Solu-Cortef. PLAN: Continue to encourage increased oral intake, maintained on IV fluids at 50 mL an hour, which I will continue for now. MMODL / IJN: [id number] /
[2020-07-06 16:40] LABS: Glucose,Whole Blood 116 mg/dL (75-99)
[2020-07-06] MEDS ORDERED: WARFARIN 2.5 MG TAB PO ONE (18:00)
[2020-07-06 20:21] LABS: Glucose,Whole Blood 154 mg/dL (75-99)
[2020-07-06] MEDS: MULTIVITAMINS, THERA 1 EACH TAB PO SCH (20:48)
[2020-07-07] MEDS: SODIUM CHLORIDE 0.9% 1,000 ML IV SCH ×4 (02:15→23:19)
--- NOTE | 2020-07-07 02:42 | PN ---
PROGRESS NOTE DATE OF SERVICE: 07/06/2020 REASON FOR FOLLOWUP: Urinary tract infection. INTERVAL HISTORY: The patient is currently afebrile. The patient is breathing comfortably, feeling better. No chest pain, shortness of breath or cough. No abdominal pain, no diarrhea. PHYSICAL EXAMINATION: Blood pressure 104/58 with a pulse of 59, temperature 97.9. She is 97% on room air. General description is an elderly female lying in bed in no distress. RESPIRATORY SYSTEM: Unlabored breathing, clear to auscultation anteriorly. HEART: S1, S2. Regular rate and rhythm. ABDOMEN: Soft, no tenderness. LABS: Creatinine 3.2, white count 5.5. DIAGNOSTIC IMPRESSION AND PLAN: Patient with recurrent urinary tract infection and admission culture positive for Enterococcus and Citrobacter. Repeat UA not significantly positive. Patient is covered with Zosyn, to continue. Will monitor clinical course closely. Family at the bedside. Questions were answered. MMODL / IJN: [id number] /
[2020-07-07] MEDS: LEVOTHYROXINE 88 MCG TAB PO SCH (05:49)
[2020-07-07 07:06] LABS: Glucose,Whole Blood 186 mg/dL (75-99)
[2020-07-07] MEDS: SODIUM BICARBONATE TAB 650 MG TAB PO SCH ×2 (08:00→20:40)
[2020-07-07] MEDS: METOPROLOL TARTRATE 25 MG TAB PO SCH ×3 (08:00→20:41)
[2020-07-07] MEDS: INSULIN ASPART (NovoLOG) 100 UNIT/ML VIAL SQ SCH ×4 (08:00→20:41)
[2020-07-07] MEDS: THIAMINE 100 MG TAB PO SCH (08:00)
[2020-07-07] MEDS: FOLIC ACID 1 MG TAB PO SCH (08:00)
[2020-07-07] MEDS: PANTOPRAZOLE 40 MG TABLET PO SCH ×2 (08:00→17:22)
[2020-07-07] MEDS: HYDROCORTISONE SUCCINATE 100 MG/2 ML VIAL IV SCH ×2 (08:01→20:42)
[2020-07-07] MEDS: MIDODRINE 5 MG TAB PO SCH ×3 (08:05→15:45)
[2020-07-07] MEDS: SENNOSIDES-DOCUSATE SODIUM 1 EACH TAB PO SCH (08:05)
[2020-07-07] MEDS: BALSALAZIDE DISODIUM 750 MG CAPSULE PO SCH ×3 (08:07→17:22)
--- NOTE | 2020-07-07 08:48 | P.PN ---
Progress Note - Text Progress Note Date: 07/07/20 Orthopedics: History of present illness: Patient is a very pleasant 74-year-old female who is seen today in the bedside for follow-up evaluation for her left hip. She is status post left hip hemiarthroplasty performed on 07/02/2020. She feels her left hip pain is adequately controlled. She does have difficulty with weightbearing on the left lower extremity on her own. She has been working with physical therapy to aid in ambulation. She has been using a walker with therapy. She is planning for discharge to a rehabilitation facility once cleared by medicine. She is currently on Coumadin per internal medicine. She continues to be seen again by medicine for further treatment and evaluation for urinary tract infection, acute renal failure, and metabolic acidosis. She has a Peoples catheter intact. Her pain has been medically controlled. Patient's other medical diagnoses include hypertension, type 2 diabetes mellitus, hypothyroidism, and atrial fibrillation. Physical Exam Hip Hemiarthroplasty: Status post surgical day number 5 Patient is examined sitting bedside upright in bed Patient is awake, alert, and oriented 3 Vital signs stable Good chest excursion with deep inspiration and expiration No signs or symptoms of DVT; no calf pain Lower extremity cuffs are currently in place bilaterally Dressing of the left hip is clean, dry, and intact; no erythema, purulence, or signs of infection No significant pain with palpation over the surgical site Some bruising around the left hip surgical site Full range of motion of ankles bilaterally Dorsiflexion, plantarflexion, and extensor hallucis longus positive sustained bilaterally Neurovascularly intact bilateral lower extremities Capillary refill less than 2 seconds bilateral lower extremities Peoples catheter intact Assessment: Status post left hip hemiarthroplasty for left femoral neck fracture Status post fall Urinary tract infection Metabolic acidosis Acute renal failure Hypertension Type 2 diabetes mellitus Hypothyroidism Atrial fibrillation Plan: 1. Patient may continue to weight-bear as tolerated on the lower extremity; patient may work with physical therapy to increase mobility and ambulation; she is encouraged to continue using a walker to aid in ambulation as needed 2. Keep dressing over the left hip clean, dry, intact. Patient may shower with dressing intact. Dressing may be removed in 10 days postoperatively. 3. Continue pain control with medication as prescribed including [place] or tramadol 4. Medicine to continue following the patient for their other medical diagnoses include urinary tract infection, acute renal failure, and metabolic acidosis 5. Continue with with anticoagulation therapy with Coumadin as prescribed by medicine 6. Orthopedic standpoint, patient is clear for discharge once cleared by other medical providers including medicine. Patient is planning for discharge to the rehabilitation facility at the time of discharge. Phone discharge, patient may follow-up with Frdedie Huber PA-C or Dr. Anastacio Gilbert at [facility] in 2-3 weeks following discharge
[2020-07-07] MEDS: PIPERACILLIN-TAZOBACTAM 3.375 GM in SODIUM CHLORIDE 0.9% 100 ML IVPB SCH ×2 (09:47→22:33)
[2020-07-07 09:50] LABS: INR 2.21 (0.90-1.11); Prothrombin Time 22.9 sec (9.9-11.9)
[2020-07-07 11:31] LABS: Glucose,Whole Blood 168 mg/dL (75-99)
[2020-07-07 12:00] LABS: African American GFR (CKD) 17 (>60 ml/min/1.73 sqM); Anion Gap 7 mmol/L; Blood Urea Nitrogen 55 mg/dL (7-17); Calcium 7.9 mg/dL (8.4-10.2); Carbon Dioxide 20 mmol/L (22-30); Chloride 111 mmol/L (98-107); Glucose 152 mg/dL (74-99); Non-African American GFR(CKD) 15 (>60 ml/min/1.73 sqM); Potassium 2.8 mmol/L (3.5-5.1); Sodium 138 mmol/L (137-145)
[2020-07-07] MEDS ORDERED: Potassium Replacement Protocol 1 EACH MISC MISCELLANE PRN (12:07)
[2020-07-07] MEDS: POTASSIUM CHLORIDE ER 20 MEQ TAB.ER PO SCH ×2 (12:18→14:01)
--- NOTE | 2020-07-07 12:31 | PN ---
PROGRESS NOTE Patient is seen for followup for acute kidney injury on top of chronic kidney disease. Her renal function has been stable with creatinine staying at about 3.2 mg/dL. Patient is currently sleeping, she is arousable, not in any acute distress. Blood pressure was 117/74, heart rate 76 per minute, she is afebrile. Examination of the heart S1, S2. Examination of the lungs, bilateral breath sounds are heard. Abdomen is soft, nontender. Examination of the lower extremities shows edema 2+ bilaterally. 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 LABS: Labs from today are not available. ASSESSMENT: 1. Acute kidney injury, acute tubular necrosis, currently stable. 2. Left femoral fracture, status post fall and left hip hemiarthroplasty. 3. Chronic kidney disease stage 3. Baseline creatinine about 1.5 secondary to nephrosclerosis. 4. Atrial fibrillation with rapid ventricular response, currently controlled ventricular response. 5. Urinary tract infection with urine culture growing Citrobacter and Enterococcus. 6. Hypotension maintained on midodrine. Patient also has adrenal insufficiency, currently on Solu-Cortef. 7. Hypokalemia, status post replacement. PLAN: Check labs today. Continue to encourage increased oral intake. MMODL / IJN: [id number] /
[2020-07-07 12:42] LABS: Anisocytosis Slight; Basophils % (A) 0 %; Eosinophils % (A) 1 %; HCT 22.4 % (34.0-46.0); HGB 7.2 gm/dL (11.4-16.0); Hypochromasia Marked; Lymphocytes # (A) 0.5 k/uL (1.0-4.8); Lymphocytes % (A) 11 %; MCH 32.5 pg (25.0-35.0); MCHC 31.9 g/dL (31.0-37.0); MCV 101.7 fL (80.0-100.0); Macrocytosis Slight; Mean Platelet Volume 11.4; Monocytes # (A) 0.2 k/uL (0-1.0); Monocytes % (A) 4 %; Neutrophils # (A) 4.1 k/uL (1.3-7.7); Neutrophils % (A) 84 %; Poikilocytosis Slight; RBC 2.21 m/uL (3.80-5.40); RDW 16.2 % (11.5-15.5); WBC 4.8 k/uL (3.8-10.6)
[2020-07-07 13:46] LABS: Platelet Count 88 k/uL (150-450)
--- NOTE | 2020-07-07 16:23 | P.PN ---
Subjective Progress Note Date: 07/07/20 74-year-old female admitted for fall and left hip fracture. Patient is presently broad-spectrum antibiotics. Patient is supposed to undergo surgical intervention for her fractured today but patient is hyponatremic because of which patient didn't undergo surgery today. Nephrology is following the patient patient does have acute renal failure as well patient is receiving IV fluids at 50 mL per hour along with free water restriction as per nephrology. Nephrology believes elevation in creatinine which is a 2.3 today worse than yesterday and the same as admission is secondary to acute tubular necrosis from hypotension patient does have metabolic acidosis from that. Patient is presently on linezolid and Zosyn for enterococcus ECM and Citrobacter respectively. Patient is high risk for nephrotoxicity because of which patient is a linezolid. 07/02/2020 Patient clinically doing well but the her serum creatinine continued to get worse nephrology is following the patient and patient the serum sodium is 131 and patient should be able to go for surgery today in medically stable to go for surgery. Acute renal failure was believed to be secondary to acute tubular necrosis from infection and hypotension admission, patient blood pressures prior presently stable but expect to have perioperative hypotension and patient was closely monitored 07/03/2020 Patient is postoperative day 1. Less left hip hemiarthroplasty. Patient is having some pain in the surgical site area no other significant abnormality is a do not have any labs available from today at 07/04/2020 Due to postop left hip hemiarthroplasty, family reports patient is generally weak. Patient did receive IV Dilaudid. Continued on IV hydration with normal saline, creatinine 3.3 today. On 2 L nasal cannula saturating 99%. No fever. 07/05/20 Blood pressure has remained stable, on Cortef postoperatively which will be tapered down. She remains on IV hydration, creatinine slowly improved to 3.3. Follow-up urine culture showed no growth at this time, previously on Zyvox, now Zosyn. Hedged with therapy, reports she tolerated activity, no shortness of breath. 07/06/20 Date for postop left hemiarthroplasty, patient sleeping and lethargic likely due to Lyrica as patient has generally been awake prior to receiving regular doses of Lyrica per nursing. No fever, on room air saturating above 90%. BP 101/61, stress dose Cortef which is being tapered down. Antimicrobial therapy with Zosyn, no growth follow-up urine cultures. Blood sugars controlled 07/07/2020 patient seen on follow-up, more alert today after Lyrica was discontinued, however she remains somewhat confused. Son is at bedside concerned, states that he believes patient needs MRI, it was explained this is not appropriate at this time. From medical perspective patient is stable for discharge, however we'll keep patient overnight to monitor her mentation which we expect to improve as sedating medication was held. Her vital signs are stable. Constitutional: Denied any fatigue denied any fever. Cardio vascular: denied any chest pain, palpitations Gastrointestinal denied any nausea vomiting Pulmonary: Denied any shortness of breath cough Neurologic denied any new focal deficits All inpatient medications were reviewed and appropriate changes in these medications as dictated in the interval history and assessment and plan. Objective - Vital Signs Vital signs: Vital Signs Temp 97.6 F 07/07/20 14:42 Pulse 77 07/07/20 14:42 Resp 16 07/07/20 14:42 BP 123/75 07/07/20 14:42 Pulse Ox 98 07/07/20 14:42 Intake & Output 07/06/20 07/07/20 07/07/20 18:59 06:59 18:59 Intake Total 540 296 696 Output Total 600 1600 Balance -60 -1304 696 Weight 91 kg Intake: Intake, IV Titration 160 Amount Piperacillin-Tazobactam 3 100 .375 gm In Sodium Chloride 0.9% 100 ml @ 25 mls/hr IVPB Q12H [facility] Rx# :[id number] Sodium Chloride 0.9% 1, 60 000 ml @ 50 mls/hr IV . Q20H [facility] Rx#:[id number] Oral 540 296 536 Output: Urine 600 1600 Other: Voiding Method Indwelling Catheter Indwelling Catheter Indwelling Catheter # Bowel Movements 3 - Exam PHYSICAL EXAMINATION: GENERAL: The patient is alert, confused, in no stress. Well developed, well nourished. HEENT: Pupils are round and equally reacting to light. EOMI. No scleral icterus. No conjunctival pallor. Normocephalic, atraumatic. No pharyngeal erythema. No t hyromegaly. CARDIOVASCULAR: S1 and S2 present. No murmurs, rubs, or gallops. PULMONARY: Chest is clear to auscultation, no wheezing or crackles. ABDOMEN: Soft, nontender, nondistended, normoactive bowel sounds. No palpable organomegaly. MUSCULOSKELETAL: Deferred to arthritic surgery EXTREMITIES: No cyanosis, clubbing, or pedal edema. NEUROLOGICAL: alert, confused, nonfocal SKIN: No rashes. - Labs CBC & Chem 7: 07/07/20 05:44 07/07/20 05:44 Labs: Abnormal Lab Results - Last 24 Hours (Table) 07/06/20 07/06/20 07/07/20 Range/Units 16:39 20:20 05:44 RBC (3.80-5.40) m/uL Hgb (11.4-16.0) gm/dL Hct (34.0-46.0) % MCV (80.0-100.0) fL RDW (11.5-15.5) % Plt Count (150-450) k/uL Lymphocytes # (1.0-4.8) k/uL PT 22.9 H (9.9-11.9) sec INR 2.21 H (0.90-1.11) Potassium (3.5-5.1) mmol/L Chloride (98-107) mmol/L Carbon Dioxide (22-30) mmol/L BUN (7-17) mg/dL Creatinine (0.52-1.04) mg/dL Glucose (74-99) mg/dL POC Glucose (mg/dL) 116 H 154 H (75-99) mg/dL Calcium (8.4-10.2) mg/dL 07/07/20 07/07/20 07/07/20 Range/Units 05:44 05:44 07:05 RBC 2.21 L (3.80-5.40) m/uL Hgb 7.2 L (11.4-16.0) gm/dL Hct 22.4 L (34.0-46.0) % MCV 101.7 H (80.0-100.0) fL RDW 16.2 H (11.5-15.5) % Plt Count 88 L (150-450) k/uL Lymphocytes # 0.5 L (1.0-4.8) k/uL PT (9.9-11.9) sec INR (0.90-1.11) Potassium 2.8 L (3.5-5.1) mmol/L Chloride 111 H (98-107) mmol/L Carbon Dioxide 20 L (22-30) mmol/L BUN 55 H (7-17) mg/dL Creatinine 2.90 H (0.52-1.04) mg/dL Glucose 152 H (74-99) mg/dL POC Glucose (mg/dL) 186 H (75-99) mg/dL Calcium 7.9 L (8.4-10.2) mg/dL 07/07/20 Range/Units 11:30 RBC (3.80-5.40) m/uL Hgb (11.4-16.0) gm/dL Hct (34.0-46.0) % MCV (80.0-100.0) fL RDW (11.5-15.5) % Plt Count (150-450) k/uL Lymphocytes # (1.0-4.8) k/uL PT (9.9-11.9) sec INR (0.90-1.11) Potassium (3.5-5.1) mmol/L Chloride (98-107) mmol/L Carbon Dioxide (22-30) mmol/L BUN (7-17) mg/dL Creatinine (0.52-1.04) mg/dL Glucose (74-99) mg/dL POC Glucose (mg/dL) 168 H (75-99) mg/dL Calcium (8.4-10.2) mg/dL Microbiology - Last 24 Hours (Table) 07/06/20 06:00 Urine Culture - Final Urine,Clean Catch Assessment and Plan Assessment: -Fall and developed a fracture: Patient is status post left hip hemiarthroplasty clinically doing well: -altered mental status,likely due to metabolic encephalopathy: Most likely due to Lyrica which has been discontinued, however given that her renal function is poor creatinine 2.9. Expect mentation will continue to improve and she will likely be at her baseline within the next 24-48 hours. Medically she is stable, we will keep her overnight to monitor. Possible discharge in the next 24 hours. -atrial fibrillation presently rate controlled continue with present medications at this time -Urinary tract infection with Citrobacter and enterococcus: On Zosyn follow-up urine culture showed no growth at this time. -Acute renal failure secondary to acute tubular necrosis from sepsis and hypotension. Creatinine stable 3.2. Blood pressure stable, on Cortef twice daily -Hyponatremia: Etiology unclear, patient is on oral fluid restriction receiving gentle IV hydration, sodium now normalized. -mild metabolic acidosis secondary to acute renal failure: On oral sodium bicarbonate -Hypertension -Type 2 diabetes mellitus blood sugars controlled, sliding scale coverage -Hypothyroidism -Depression -DVT prophylaxis with subcutaneous heparin
[2020-07-07 16:46] LABS: Glucose,Whole Blood 157 mg/dL (75-99)
[2020-07-07] MEDS: LACTOBACILLUS ACIDOPH & BULGAR 1 EACH PACKET PO SCH (17:22)
[2020-07-07] MEDS ORDERED: WARFARIN 2.5 MG TAB PO ONE (18:00)
[2020-07-07 20:28] LABS: Glucose,Whole Blood 169 mg/dL (75-99)
[2020-07-07] MEDS: MULTIVITAMINS, THERA 1 EACH TAB PO SCH (20:41)
--- NOTE | 2020-07-08 02:36 | PN ---
PROGRESS NOTE DATE OF SERVICE: 07/07/2020 REASON FOR FOLLOWUP: Urinary tract infection. INTERVAL HISTORY: The patient is currently afebrile. The patient is breathing comfortably. The patient denies having any chest pain, no shortness of breath or cough. No nausea, no vomiting. No abdominal pain, no diarrhea. PHYSICAL EXAMINATION: Blood pressure 118/73 with pulse of 88, temperature 98.4. She is 98% on room air. General description is an elderly female up in the bed in no distress. RESPIRATORY SYSTEM: Unlabored breathing, clear to auscultation anteriorly. HEART: S1, S2. Regular rate and rhythm. ABDOMEN: Soft, no tenderness. LABS: Hemoglobin 7.2, white count 4.8, BUN of 55, creatinine is 2.90. DIAGNOSTIC IMPRESSION AND PLAN: Patient with urinary tract infection with Enterococcus faecium and Citrobacter underlying urinary tract infection has been adequately treated. Currently covered with Zosyn can be discontinued on discharge. Son at the bedside, multiple questions and those were answered. MMODL / IJN: [id number] /
[2020-07-08] MEDS: POTASSIUM CHLORIDE ER 20 MEQ TAB.ER PO SCH ×8 (05:26→20:31)
[2020-07-08] MEDS: LEVOTHYROXINE 88 MCG TAB PO SCH (05:27)
[2020-07-08 07:40] LABS: Glucose,Whole Blood 157 mg/dL (75-99)
[2020-07-08] MEDS: INSULIN ASPART (NovoLOG) 100 UNIT/ML VIAL SQ SCH ×4 (08:25→21:20)
[2020-07-08] MEDS: SODIUM BICARBONATE TAB 650 MG TAB PO SCH (08:25)
[2020-07-08] MEDS: METOPROLOL TARTRATE 25 MG TAB PO SCH ×3 (08:26→21:21)
[2020-07-08] MEDS: PANTOPRAZOLE 40 MG TABLET PO SCH ×2 (08:26→15:42)
[2020-07-08] MEDS: MIDODRINE 5 MG TAB PO SCH ×3 (08:26→17:31)
[2020-07-08] MEDS: HYDROCORTISONE SUCCINATE 100 MG/2 ML VIAL IV SCH ×2 (08:26→21:21)
[2020-07-08] MEDS: SENNOSIDES-DOCUSATE SODIUM 1 EACH TAB PO SCH (08:27)
[2020-07-08] MEDS: BALSALAZIDE DISODIUM 750 MG CAPSULE PO SCH ×3 (08:28→17:33)
[2020-07-08] MEDS: PIPERACILLIN-TAZOBACTAM 3.375 GM in SODIUM CHLORIDE 0.9% 100 ML IVPB SCH ×2 (08:32→21:21)
[2020-07-08 08:52] LABS: INR 2.28 (0.90-1.11); Prothrombin Time 23.6 sec (9.9-11.9)
[2020-07-08 09:31] LABS: Anion Gap 11.5 mmol/L (4.00-12.00); Carbon Dioxide 23.5 mmol/L (21.6-31.8); Non-African American GFR(CKD) 17.2 (60.0-200.0); Potassium 2.8 mmol/L (3.5-5.5)
[2020-07-08] MEDS ORDERED: Potassium Replacement Protocol 1 EACH MISC MISCELLANE PRN ×2 (12:01→18:26)
[2020-07-08 12:18] LABS: Glucose,Whole Blood 150 mg/dL (75-99)
[2020-07-08] MEDS: THIAMINE 100 MG TAB PO SCH (12:54)
[2020-07-08] MEDS: FOLIC ACID 1 MG TAB PO SCH (12:54)
[2020-07-08] MEDS ORDERED: POTASSIUM CHLORIDE ER 20 MEQ TAB.ER PO SCH (13:00)
[2020-07-08] MEDS: CHOLESTYRAMINE (WITH SUGAR) 4 GM PACKET PO SCH ×2 (14:19→17:34)
--- NOTE | 2020-07-08 15:32 | P.PN ---
Subjective 74-year-old female admitted for fall and left hip fracture. Patient is presently broad-spectrum antibiotics. Patient is supposed to undergo surgical intervention for her fractured today but patient is hyponatremic because of which patient didn't undergo surgery today. Nephrology is following the patient patient does have acute renal failure as well patient is receiving IV fluids at 50 mL per hour along with free water restriction as per nephrology. Nephrology believes elevation in creatinine which is a 2.3 today worse than yesterday and t he same as admission is secondary to acute tubular necrosis from hypotension patient does have metabolic acidosis from that. Patient is presently on linezolid and Zosyn for enterococcus ECM and Citrobacter respectively. Patient is high risk for nephrotoxicity because of which patient is a linezolid. 07/02/2020 Patient clinically doing well but the her serum creatinine continued to get worse nephrology is following the patient and patient the serum sodium is 131 and patient should be able to go for surgery today in medically stable to go for surgery. Acute renal failure was believed to be secondary to acute tubular necrosis from infection and hypotension admission, patient blood pressures prior presently stable but expect to have perioperative hypotension and patient was closely monitored 07/03/2020 Patient is postoperative day 1. Less left hip hemiarthroplasty. Patient is having some pain in the surgical site area no other significant abnormality is a do not have any labs available from today at 07/04/2020 Due to postop left hip hemiarthroplasty, family reports patient is generally weak. Patient did receive IV Dilaudid. Continued on IV hydration with normal saline, creatinine 3.3 today. On 2 L nasal cannula saturating 99%. No fever. 07/05/20 Blood pressure has remained stable, on Cortef postoperatively which will be tapered down. She remains on IV hydration, creatinine slowly improved to 3.3. Follow-up urine culture showed no growth at this time, previously on Zyvox, now Zosyn. Hedged with therapy, reports she tolerated activity, no shortness of breath. 07/06/20 Date for postop left hemiarthroplasty, patient sleeping and lethargic likely due to Lyrica as patient has generally been awake prior to receiving regular doses of Lyrica per nursing. No fever, on room air saturating above 90%. BP 101/61, stress dose Cortef which is being tapered down. Antimicrobial therapy with Zosyn, no growth follow-up urine cultures. Blood sugars controlled 07/07/2020 patient seen on follow-up, more alert today after Lyrica was discontinued, however she remains somewhat confused. Son is at bedside concerned, states that he believes patient needs MRI, it was explained this is not appropriate at this time. From medical perspective patient is stable for discharge, however we'll keep patient overnight to monitor her mentation which we expect to improve as sedating medication was held. Her vital signs are stable. 07/08/2020 Patient is doing much better todaypatient is sitting in the chair no overnight events but the patient was having multiple episodes of diarrhea related to hypokalemia this is because of disc herniation of her Lomotil patient will restart Questran resumed back on Lomotil progress will be replaced will typically developed lites tomorrow if they're okay patient probably can be discharged tomorrow. Constitutional: Denied any fatigue denied any fever. Cardio vascular: denied any chest pain, palpitations Gastrointestinal denied any nausea vomiting Pulmonary: Denied any shortness of breath cough Neurologic denied any new focal deficits All inpatient medications were reviewed and appropriate changes in these medications as dictated in the interval history and assessment and plan. Objective - Vital Signs Vital signs: Vital Signs Temp 97.6 F 07/08/20 07:00 Pulse 70 07/08/20 07:00 Resp 20 07/08/20 04:26 BP 113/79 07/08/20 07:00 Pulse Ox 98 07/08/20 07:00 Intake & Output 07/07/20 07/08/20 07/08/20 18:59 06:59 18:59 Intake Total 992 100 480 Output Total 300 1800 Balance 692 -1700 480 Weight 91 kg Intake: Intake, IV Titration 160 Amount Piperacillin-Tazobactam 3 100 .375 gm In Sodium Chloride 0.9% 100 ml @ 25 mls/hr IVPB Q12H [facility] Rx# :[id number] Sodium Chloride 0.9% 1, 60 000 ml @ 50 mls/hr IV . Q20H [facility] Rx#:[id number] Oral 832 100 480 Output: Urine 300 1800 Other: Voiding Method Indwelling Catheter Indwelling Catheter Indwelling Catheter # Bowel Movements 6 3 - Exam PHYSICAL EXAMINATION: GENERAL: The patient is alert, confused, in no stress. Well developed, well nourished. HEENT: Pupils are round and equally reacting to light. EOMI. No scleral icterus. No conjunctival pallor. Normocephalic, atraumatic. No pharyngeal erythema. No thyromegaly. CARDIOVASCULAR: S1 and S2 present. No murmurs, rubs, or gallops. PULMONARY: Chest is clear to auscultation, no wheezing or crackles. ABDOMEN: Soft, nontender, nondistended, normoactive bowel sounds. No palpable organomegaly. MUSCULOSKELETAL: Deferred to arthritic surgery EXTREMITIES: No cyanosis, clubbing, or pedal edema. NEUROLOGICAL: alert, awake, not confused no focal deficits SKIN: No rashes. - Labs CBC & Chem 7: 07/07/20 05:44 07/08/20 10:44 Labs: Abnormal Lab Results - Last 24 Hours (Table) 07/07/20 07/07/20 07/07/20 Range/Units 15:48 16:45 20:09 PT (9.9-11.9) sec INR (0.90-1.11) Sodium (135-145) mmol/L Potassium 3.2 L (3.5-5.5) mmol/L Chloride (96-109) mmol/L BUN (9.0-27.0) mg/dL Creatinine (0.6-1.5) mg/dL Est GFR (CKD-EPI)AfAm (60.0-200.0) Est GFR (CKD-EPI)NonAf (60.0-200.0) Glucose (70-110) mg/dL POC Glucose (mg/dL) 157 H 169 H (75-99) mg/dL Calcium (8.7-10.3) mg/dL 07/08/20 07/08/20 07/08/20 Range/Units 02:16 05:40 05:40 PT 23.6 H (9.9-11.9) sec INR 2.28 H (0.90-1.11) Sodium 148 H (135-145) mmol/L Potassium 2.8 L 2.8 L (3.5-5.5) mmol/L Chloride 113 H (96-109) mmol/L BUN 52.0 H (9.0-27.0) mg/dL Creatinine 2.6 H (0.6-1.5) mg/dL Est GFR (CKD-EPI)AfAm 20.0 L (60.0-200.0) Est GFR (CKD-EPI)NonAf 17.2 L (60.0-200.0) Glucose 135 H (70-110) mg/dL POC Glucose (mg/dL) (75-99) mg/dL Calcium 8.0 L (8.7-10.3) mg/dL 07/08/20 07/08/20 07/08/20 Range/Units 07:39 10:44 12:17 PT (9.9-11.9) sec INR (0.90-1.11) Sodium (135-145) mmol/L Potassium 2.7 L* (3.5-5.5) mmol/L Chloride (96-109) mmol/L BUN (9.0-27.0) mg/dL Creatinine (0.6-1.5) mg/dL Est GFR (CKD-EPI)AfAm (60.0-200.0) Est GFR (CKD-EPI)NonAf (60.0-200.0) Glucose (70-110) mg/dL POC Glucose (mg/dL) 157 H 150 H (75-99) mg/dL Calcium (8.7-10.3) mg/dL Assessment and Plan Plan: -Fall and developed a fracture: Patient is status post left hip hemiarthroplasty clinically doing well except for mild pain in the surgical site area -atrial fibrillation presently rate controlled continue with present medications at this time -Urinary tract infection with Citrobacter and enterococcus: Patient is presently on Zosyn . -Diarrhea probably rebound from discontinue additional for Lomotil because of her confusion, patient will be resumed on this medication along with Questran. Patient does have chronic colitis and chronic diarrhea from that. -Hypokalemia secondary to multiple episodes of diarrhea. -Acute renal failure secondary to acute tubular necrosis from sepsis and hypotension -hyponatremia resolved and patient is presently hyponatremic IV fluids were discontinued -mild metabolic acidosis secondary to acute renal failure -Hypertension -Type 2 diabetes mellitus -Hypothyroidism -Depression -DVT prophylaxis with subcutaneous heparin
[2020-07-08] MEDS: LACTOBACILLUS ACIDOPH & BULGAR 1 EACH PACKET PO SCH (15:43)
[2020-07-08] MEDS: DIPHENOX-ATROP 2.5-0.025 MG 1 EACH TAB PO PRN (15:43)
[2020-07-08] MEDS ORDERED: DEXTROSE 5% IN WATER 1,000 ML IV SCH (16:00)
[2020-07-08 17:03] LABS: Glucose,Whole Blood 148 mg/dL (75-99)
--- NOTE | 2020-07-08 17:13 | PN ---
PROGRESS NOTE Patient is seen for followup for acute kidney injury. Her renal function is stable, actually slightly improved. Creatinine is down to 2.6. Patient is sleeping. She is arousable, not in any acute distress. On examination today, blood pressure was 113/79, heart rate 70 per minute. She is afebrile. EXAMINATION OF THE HEART: S1 and S2. EXAMINATION OF LUNGS: Bilateral breath sounds are heard. ABDOMEN: Soft, non-tender. Examination of lower extremities shows edema 1+ bilaterally. CLINICAL DIETITIAN exam is grossly intact. Labs show sodium of 148, potassium 2.8. CO2 is 23.5. Serum creatinine down to 2.6 mg/dL. ASSESSMENT: 1. Acute kidney injury, acute tubular necrosis, currently improved. The patient has an indwelling Peoples catheter. 2. Hypokalemia, status post replacement. We will repeat labs in a.m. and check a potassium after replacement. 3. Mild hypernatremia. Encourage increased free water intake. I will also decrease the sodium bicarb, as her metabolic acidosis has improved. 4. Generalized debility. 5. Chronic kidney disease, stage 3. Baseline creatinine 1.5. Etiology nephrosclerosis. 6. Urinary tract infection with urine culture growing Citrobacter and Enterococcus. PLAN: Replace potassium. Encourage free water intake. Repeat labs in a.m. If patient is discharged, we will need to repeat labs tomorrow to monitor the potassium. MMODL / IJN: [id number] /
[2020-07-08 17:47] LABS: Potassium 3.4 mmol/L (3.5-5.1)
[2020-07-08] MEDS ORDERED: WARFARIN 2 MG TAB PO SCH (18:00)
[2020-07-08] MEDS: ACETAMINOPHEN TAB 500 MG TAB PO PRN (20:32)
[2020-07-08] MEDS: ONDANSETRON 4 MG/2 ML VIAL IVP PRN (21:07)
[2020-07-08 21:15] LABS: Glucose,Whole Blood 235 mg/dL (75-99)
[2020-07-08] MEDS: MULTIVITAMINS, THERA 1 EACH TAB PO SCH (21:21)
[2020-07-08] MEDS: traMADol 50 MG TAB PO PRN (21:51)
[2020-07-08] MEDS ORDERED: POTASSIUM CHLORIDE ER 20 MEQ TAB.ER PO STA (22:47)
--- NOTE | 2020-07-09 00:58 | PN ---
PROGRESS NOTE DATE OF SERVICE: 07/08/2020 REASON FOR FOLLOWUP: Urinary tract infection. INTERVAL HISTORY: The patient is currently afebrile. Patient is breathing comfortably. Denies having any chest pain. No shortness of breath or cough. No nausea, vomiting. No abdominal pain, no diarrhea. PHYSICAL EXAMINATION: Blood pressure 130/78 with a pulse of 91, temperature 98.4. She is 98% on room air. General description is an elderly female lying in bed in no distress. RESPIRATORY SYSTEM: Unlabored breathing, clear to auscultation anteriorly. HEART: S1, S2. Regular rate and rhythm. ABDOMEN: Soft, no tenderness. LABS: Hemoglobin 7.2, white count 4.8. Repeat urine has been negative so far. DIAGNOSTIC IMPRESSION AND PLAN: Patient with a complicated urinary tract infection in this patient who did have multiple pathogens on the urine culture with Citrobacter and Enterococcus faecium. Repeat urine so far negative. Antibiotic can be discontinued. Will monitor the patient closely off antibiotic. Continue supportive care. MMODL / IJN: [id number] /
[2020-07-09] MEDS: ACETAMINOPHEN TAB 500 MG TAB PO PRN (05:14)
[2020-07-09] MEDS: LEVOTHYROXINE 88 MCG TAB PO SCH (05:15)
[2020-07-09] MEDS: traMADol 50 MG TAB PO PRN (05:54)
[2020-07-09 07:43] LABS: Glucose,Whole Blood 186 mg/dL (75-99)
[2020-07-09] MEDS: INSULIN ASPART (NovoLOG) 100 UNIT/ML VIAL SQ SCH ×4 (07:52→20:54)
[2020-07-09] MEDS: ONDANSETRON 4 MG/2 ML VIAL IVP PRN ×2 (07:57→15:29)
[2020-07-09] MEDS: HYDROCORTISONE SUCCINATE 100 MG/2 ML VIAL IV SCH ×2 (07:57→21:07)
[2020-07-09] MEDS: SODIUM BICARBONATE TAB 650 MG TAB PO SCH (07:58)
[2020-07-09] MEDS: METOPROLOL TARTRATE 25 MG TAB PO SCH ×3 (07:58→21:07)
[2020-07-09] MEDS: MIDODRINE 5 MG TAB PO SCH ×3 (07:58→16:21)
[2020-07-09] MEDS: PANTOPRAZOLE 40 MG TABLET PO SCH ×2 (07:58→16:21)
[2020-07-09] MEDS: SENNOSIDES-DOCUSATE SODIUM 1 EACH TAB PO SCH (07:59)
[2020-07-09] MEDS: BALSALAZIDE DISODIUM 750 MG CAPSULE PO SCH ×3 (07:59→16:22)
[2020-07-09] MEDS: PIPERACILLIN-TAZOBACTAM 3.375 GM in SODIUM CHLORIDE 0.9% 100 ML IVPB SCH ×2 (09:22→21:07)
[2020-07-09] MEDS: CHOLESTYRAMINE (WITH SUGAR) 4 GM PACKET PO SCH ×3 (09:24→17:09)
[2020-07-09 10:25] LABS: INR 3.65 (0.90-1.11); Prothrombin Time 37.2 sec (9.9-11.9)
[2020-07-09 11:40] LABS: Glucose,Whole Blood 206 mg/dL (75-99)
[2020-07-09] MEDS: FOLIC ACID 1 MG TAB PO SCH (12:13)
[2020-07-09] MEDS: THIAMINE 100 MG TAB PO SCH (12:13)
[2020-07-09] MEDS: ACETAMINOPHEN TAB 325 MG TAB PO PRN ×2 (13:02→21:10)
[2020-07-09 14:53] LABS: ALT <6 U/L (4-34); AST 50 U/L (14-36); African American GFR (CKD) 22 (>60 ml/min/1.73 sqM); Albumin 2.8 g/dL (3.5-5.0); Albumin/Globulin Ratio 1.4; Alkaline Phosphatase 42 U/L (38-126); Anion Gap 6 mmol/L; Blood Urea Nitrogen 48 mg/dL (7-17); Calcium 8.4 mg/dL (8.4-10.2); Carbon Dioxide 20 mmol/L (22-30); Chloride 116 mmol/L (98-107); Glucose 131 mg/dL (74-99); Non-African American GFR(CKD) 19 (>60 ml/min/1.73 sqM); Potassium 4.9 mmol/L (3.5-5.1); Sodium 142 mmol/L (137-145); Total Bilirubin 0.8 mg/dL (0.2-1.3); Total Protein 4.8 g/dL (6.3-8.2)
[2020-07-09 14:55] LABS: Anisocytosis Slight; HCT 21.2 % (34.0-46.0); Hypochromasia Marked; MCHC 30.3 g/dL (31.0-37.0); MCV 102.2 fL (80.0-100.0); Macrocytosis Moderate; Mean Platelet Volume 10.5; Poikilocytosis Slight; RBC 2.07 m/uL (3.80-5.40); RDW 16.7 % (11.5-15.5); WBC 9.8 k/uL (3.8-10.6)
[2020-07-09 14:59] LABS: HGB 6.4 gm/dL (11.4-16.0)
[2020-07-09] MEDS ORDERED: FUROSEMIDE 10 MG/ML 2 ML VIAL IV PRN (15:06)
[2020-07-09 15:38] LABS: Lymphocytes # (M) 0.78 k/uL (1.0-4.8); Monocytes # (M) 0.29 k/uL (0-1.0); Neutrophils # (M) 8.72 k/uL (1.3-7.7); Neutrophils % (M) 89 %; Nucleated Red Blood Cells 0 /100 WBC (0-0); Total Cells Counted 100
[2020-07-09 15:39] LABS: Platelet Count 70 k/uL (150-450)
--- NOTE | 2020-07-09 15:56 | PN ---
PROGRESS NOTE Patient is seen for followup for acute kidney injury. She was started on IV fluids yesterday as patient was having significant diarrhea and her sodium had increased. Her potassium was also low, which is now replaced and improved. PHYSICAL EXAMINATION: Today patient is comfortable. Blood pressure is 118/67, heart rate 84 per minute, she is afebrile. Examination of the heart S1, S2. Examination of the lungs, bilateral breath sounds are heard. Abdomen is soft, nontender. Examination of the lower extremities shows 1+ edema bilaterally. DIRECTOR OF INSTRUMENTAL MUSIC exam is grossly intact. LABS: Show potassium 4.8 today. Sodium yesterday was down to 144. ASSESSMENT: 1. Hypernatremia, currently improved with D5W and improvement in diarrhea. 2. Hypokalemia, status post replacement, currently improved. 3. Acute kidney injury. Renal function currently stable and improved. 4. Chronic kidney disease stage 3. Baseline creatinine about 1.5 secondary to nephrosclerosis. 5. Urinary tract infection with urine culture growing Citrobacter, Enterococcus, maintained on antibiotics. 6. Diarrhea, now improved with Questran. PLAN: Repeat labs as outpatient in 3-4 days time. Okay to discharge patient. Follow up as outpatient. MMODL / IJN: [id number] /
[2020-07-09] MEDS: LACTOBACILLUS ACIDOPH & BULGAR 1 EACH PACKET PO SCH (16:21)
[2020-07-09 16:26] LABS: Glucose,Whole Blood 138 mg/dL (75-99)
[2020-07-09] MEDS ORDERED: WARFARIN 0.5 MG TAB PO ONE (18:00)
--- NOTE | 2020-07-09 18:20 | CT ---
EXAMINATION TYPE: CT brain wo con DATE OF EXAM: 07/09/2020 COMPARISON: 05/15/2020 and 05/14/2009 HISTORY: Weakness. Stroke. CT DLP: mGycm Automated exposure control for dose reduction was used. There is some cerebral cortical atrophy. There is no mass effect nor midline shift. There is no sign of intracranial hemorrhage. Calvarium is intact. There is no evidence of cerebral edema. There is hig h attenuation in the sella turcica unchanged. There is dense 8 mm pituitary gland. IMPRESSION: Mild atrophy. No acute intracranial abnormality. Dense pituitary gland also present on the old CT sca n 10 years ago without change.
[2020-07-09 20:43] LABS: Glucose,Whole Blood 134 mg/dL (75-99)
--- NOTE | 2020-07-09 20:59 | PN ---
PROGRESS NOTE DATE OF SERVICE: 07/09/2020 This 74-year-old woman who was admitted after a fall and fracture had left hip hemiarthroplasty. The patient is slightly confused. Patient had some pain yesterday and last night the patient received Ultram, which prompted the patient to be mildly confused. Patient is mildly nauseous also. A CT scan was ordered, which was personally reviewed by me, to rule out the possibility of any other weakness and showed only mild abnormality and no other acute changes were noted. The patient is slated to go to [facility] rehab at this time. Past medical history reviewed. REVIEW OF SYSTEMS: CARDIOVASCULAR SYSTEM: No angina, palpitations. RESPIRATORY SYSTEM: As mentioned earlier. GI: As mentioned earlier. : No dysuria or retention. NERVOUS SYSTEM: No numbness, weakness. CURRENT MEDICATIONS: Reviewed. They include Tylenol p.r.n., Colazal, Cepacol, Questran, Lomotil, Flonase, folic acid, Lasix, Solu-Cortef, NovoLog, Lactinex, Synthroid, lopressor, p.r.n. medications, Zofran, Zosyn IV, vitamin B1. PHYSICAL EXAMINATION: Patient is alert and oriented . Pulse 98, blood pressure 114/74, respiration 18, temperature 97.4, pulse ox 97% on room air. HEENT: Conjunctivae normal. NECK: No jugular venous distention. CARDIOVASCULAR SYSTEM: S1, S2 muffled. RESPIRATORY SYSTEM: Breath sounds diminished at the bases. A few scattered rhonchi and crackles. ABDOMEN: Soft, non-tender. No mass palpable. LEGS: No edema. No swelling. NERVOUS SYSTEM: No focal deficit. LABS: Labs at this time show WBC 9.8, hemoglobin 6.4, sodium 142, potassium 4.2, creatinine 2.4. ASSESSMENT: 1. Status post fall and left hip hemiarthroplasty. 2. Change in mental status, acute metabolic encephalopathy, multifactorial. 3. Anemia, multifactorial. 4. Generalized weakness and tiredness. 5. Possible acute gastritis. 6. Atrial fibrillation, rate controlled. 7. Mild Coumadin coagulopathy. 8. Coumadin monitoring. 9. Urinary tract infection with Citrobacter freundii as well as Enterococcus faecium which is vancomycin-sensitive. 10.Diarrhea. 11.Hypokalemia. 12.Acute renal failure, acute tubular necrosis. 13.Hyponatremia. 14.Mild metabolic acidosis. 15.Hypertension. 16.Diabetes mellitus, type 2. 17.Hypothyroidism. 18.Depression. 19.NO CODE, NO CPR, NO VENT. 20.Chronic kidney disease, stage 3 baseline. RECOMMENDATIONS AND DISCUSSION: In this 74-year-old woman who presented with multiple complex medical issues, we will monitor the patient closely, continue the current medications, continue symptomatic treatment. Hemoglobin has gone to 6.5. Recommend one unit transfusion, Lasix. Closely monitor. Otherwise, I would also recommend closely following with multiple consultants, including Nephrology as well as Infectious Disease. PT/OT evaluation. Cut down the pain medication; only Tylenol. Discussed with the family at length. Hold the Coumadin for now. Once the patient is stabilized, rehab probably in [facility]. Guarded prognosis. Further recommendations to follow. LINDA / ALEJANDRA: [id number] /
[2020-07-09] MEDS: MULTIVITAMINS, THERA 1 EACH TAB PO SCH (21:07)
--- NOTE | 2020-07-10 02:42 | PN ---
PROGRESS NOTE DATE OF SERVICE: 07/09/2020 REASON FOR FOLLOWUP: Urinary tract infection. INTERVAL HISTORY: The patient is currently afebrile. Patient is breathing comfortably. Denies having any chest pain or shortness of breath. No cough. No abdominal pain or diarrhea. PHYSICAL EXAMINATION: Blood pressure 122/75 with pulse of 102, temperature 97.6. She is 97% on 2 L nasal cannula. General description is an elderly female lying in bed in no distress. RESPIRATORY SYSTEM: Unlabored breathing, decreased breath sounds at the bases. No wheeze. HEART: S1, S2. Regular rate and rhythm. ABDOMEN: Soft, no tenderness. No guarding or rigidity. LABS: Hemoglobin 6.4, white count 9.8, BUN of 48, creatinine is 2.40. Repeat urine is negative. DIAGNOSTIC IMPRESSION AND PLAN: Patient with urinary tract infection, initial urine culture positive for Citrobacter and Enterococcus faecium adequately treated. Repeat is so far negative. White count has normalized. Antibiotic can be safely discontinued on discharge and will monitor her clinical course closely. MMODL / IJN: [id number] /
[2020-07-10] MEDS: LEVOTHYROXINE 88 MCG TAB PO SCH (05:03)
[2020-07-10] MEDS: ACETAMINOPHEN TAB 325 MG TAB PO PRN ×2 (05:03→12:31)
[2020-07-10 06:32] LABS: Anisocytosis Slight; HCT 24.8 % (34.0-46.0); Hypochromasia Marked; MCHC 32.9 g/dL (31.0-37.0); MCV 100.4 fL (80.0-100.0); Macrocytosis Slight; Mean Platelet Volume 10.8; Poikilocytosis Moderate; RBC 2.47 m/uL (3.80-5.40); RDW 17.1 % (11.5-15.5)
[2020-07-10 06:51] LABS: HGB 8.1 gm/dL (11.4-16.0); Platelet Count 55 k/uL (150-450)
[2020-07-10 07:06] LABS: Band Neutrophils % 1 %; Lymphocytes # (M) 2.27 k/uL (1.0-4.8); Metamyelocytes # (M) 0.13 k/uL (0); Metamyelocytes % 1 %; Monocytes # (M) 0.25 k/uL (0-1.0); Neutrophils % (M) 80 %; Nucleated Red Blood Cells 2 /100 WBC (0-0); Total Cells Counted 200; WBC 12.6 k/uL (3.8-10.6)
[2020-07-10 07:27] LABS: Glucose,Whole Blood 149 mg/dL (75-99)
[2020-07-10] MEDS: INSULIN ASPART (NovoLOG) 100 UNIT/ML VIAL SQ SCH ×4 (07:27→22:24)
[2020-07-10 09:29] LABS: Anion Gap 14.6 mmol/L (4.00-12.00); BUN/Creat Ratio 21.15 Ratio (12.00-20.00); Calcium 8.6 mg/dL (8.7-10.3); Carbon Dioxide 18.4 mmol/L (21.6-31.8); Non-African American GFR(CKD) 17.2 (60.0-200.0); Potassium 5.5 mmol/L (3.5-5.5)
[2020-07-10] MEDS: HYDROCORTISONE SUCCINATE 100 MG/2 ML VIAL IV SCH ×2 (09:49→22:23)
[2020-07-10] MEDS: BALSALAZIDE DISODIUM 750 MG CAPSULE PO SCH ×3 (09:50→18:25)
[2020-07-10] MEDS: FOLIC ACID 1 MG TAB PO SCH (09:50)
[2020-07-10] MEDS: MIDODRINE 5 MG TAB PO SCH ×3 (09:50→18:25)
[2020-07-10] MEDS: SENNOSIDES-DOCUSATE SODIUM 1 EACH TAB PO SCH (09:51)
[2020-07-10] MEDS: PANTOPRAZOLE 40 MG TABLET PO SCH ×2 (09:51→17:45)
[2020-07-10] MEDS: METOPROLOL TARTRATE 25 MG TAB PO SCH ×3 (09:51→22:20)
[2020-07-10] MEDS: CHOLESTYRAMINE (WITH SUGAR) 4 GM PACKET PO SCH ×4 (09:51→17:17)
[2020-07-10] MEDS: THIAMINE 100 MG TAB PO SCH (09:51)
[2020-07-10] MEDS: SODIUM BICARBONATE TAB 650 MG TAB PO SCH (09:51)
--- NOTE | 2020-07-10 10:36 | P.PN ---
Progress Note - Text Progress Note Date: 07/10/20 Postoperative day #7 Patient is seen and examined today at bedside. The patient is somewhat confused but is able to follow simple commands. She does have some evidence of pain when she tries to mobilize and Pain is being controlled with medication. Physical Exam Afebrile with stable vital signs Abdomen is soft nontender. Chest has good excursion deep and space expiration The incision site is clean dry and intact. There is some ecchymosis around the area and she has diffuse global swelling and third spacing at her lower body and bilateral lower extremities No erythema there is no purulence. Extremities have not had neurologic change at her lower extremities from prior to surgery, though she has altered mental status. Calves and thighs were soft nontender without evidence of DVT. Her coagulation profile significantly elevated and is being managed by medicine She has renal insufficiency which is also being managed by medicine Assessment/Plan Postoperative day #7 status post left hip hemiarthroplasty for her acute left femoral neck fracture Renal insufficiency Coagulopathy due to her medication Altered mental status Patient is progressing very slowly from the surgery on her left hip hemiarthroplasty due to her fracture. She is having multiple medical issues with her renal function and mental status which is being managed by medicine. As she continues to try to mobilize that they could be worthwhile to obtain a new x-ray of her pelvis and hip to follow up on the position and healing. There has been ordered. She'll continue medical management for her multiple medical issues. Her Coumadin has been held today. We will continue to increase the patient's mobilization with therapy. We will continue pain control with oral or IV medications. We'll continue to follow patient closely.
[2020-07-10] MEDS: PIPERACILLIN-TAZOBACTAM 3.375 GM in SODIUM CHLORIDE 0.9% 100 ML IVPB SCH (10:49)
[2020-07-10] MEDS ORDERED: PHYTONADIONE ORAL 5 MG/5 ML ORAL.SYRG PO STA (11:01)
[2020-07-10 12:06] LABS: Glucose,Whole Blood 140 mg/dL (75-99)
[2020-07-10 13:27] LABS: INR 7.01 (0.90-1.11); Prothrombin Time 69.6 sec (9.9-11.9)
--- NOTE | 2020-07-10 13:51 | XR ---
EXAMINATION TYPE: XR chest 1V portable DATE OF EXAM: 07/10/2020 CLINICAL HISTORY: Difficulty in breathing TECHNIQUE: Portable upright view of the chest COMPARISON: Chest radiograph 07/04/2020. CT chest 06/29/2020. FINDINGS: The cardiomediastinal silhouette is within normal limits for size. Pulmonary vasculature i s normal. Small right pleural effusion. There is no focal air space opacity or pneumothorax seen. The osseous structures are intact. IMPRESSION: Persistent small right pleural effusion.
--- NOTE | 2020-07-10 14:46 | PN ---
PROGRESS NOTE Patient is seen for followup for acute kidney injury, hypernatremia. She is currently lying in bed, comfortable. Patient denies any significant complaints. Her INR was elevated to 7.0 today. Serum creatinine is staying at 2.6-2.4 mg/dL. PHYSICAL EXAMINATION: On examination today, blood pressure was 117/83, heart rate 91 per minute, patient is afebrile. Examination of the heart S1, S2. Examination of the lungs, bilateral breath sounds are heard. Abdomen is soft, nontender. Examination of lower extremities shows no significant edema. DIESEL ENGINE TESTER exam is grossly intact. The patient does have edema 2+ in the lower extremities. LABS: Show sodium of 146, potassium 5.5, chloride 113, CO2 is 18.4, BUN 55, creatinine 2.6. ASSESSMENT: 1. Acute kidney injury ATN. Serum creatinine staying at 2.4-2.6 mg/dL. Patient has an indwelling Peoples catheter. Her renal function may have worsened recently secondary to ongoing diarrhea, which has actually improved. 2. Hypokalemia, status post replacement. Potassium is a little bit higher today. I would avoid any Kayexalate use. Continue to monitor and repeat the labs again in a.m. 3. Metabolic acidosis associated with diarrhea. 4. Hypotension maintained on midodrine. 5. Chronic kidney disease stage III. Baseline creatinine about 1.5 secondary to nephrosclerosis. 6. Urinary tract infection with urine culture growing Citrobacter, Enterococcus, maintained on antibiotics. PLAN: Repeat labs in a.m. Add sodium bicarb if the acidosis is not further improved by tomorrow. Avoid Kayexalate. MMODL / IJN: [id number] /
--- NOTE | 2020-07-10 15:34 | PN ---
PROGRESS NOTE DATE OF SERVICE: 07/10/2020 REASON FOR FOLLOWUP: Complicated UTI. INTERVAL HISTORY: The patient is currently afebrile. The patient is breathing comfortably on room air. Denies having any chest pain or cough. Some nausea, but no vomiting. No abdominal pain or diarrhea. PHYSICAL EXAMINATION: Blood pressure 117/83 with a pulse of 90, temperature 98.2, she is 98% on room air. General description is an elderly female in the bed in no distress. RESPIRATORY SYSTEM: Unlabored breathing, clear to auscultation anteriorly. HEART: S1, S2. Regular rate and rhythm. ABDOMEN: Soft, no tenderness. LABS: White cell elevated at 12, did have elevated INR, creatinine is 2.3. DIAGNOSTIC IMPRESSION AND PLAN: Patient with a complicated UTI, urine culture positive for Citrobacter, Enterococcus where the patient completed more than 10 days of antibiotic therapy. Zosyn will be discontinued. Monitor closely off antibiotic therapy. Will monitor closely as well. MMODL / IJN: [id number] /
--- NOTE | 2020-07-10 16:18 | XR ---
EXAMINATION TYPE: XR Hip LT and AP Pelvis DATE OF EXAM: 07/10/2020 COMPARISON: Left hip and pelvic radiograph 06/27/2020. Limited left hip radiograph 07/02/2020. HISTORY: Follow up hip arthroplasty TECHNIQUE: A single AP view of the pelvis is obtained. Two views of the left hip are obtained. FINDINGS: Left total hip arthroplasty redemonstrated with no evidence of hardware fracture, dislocati on, or loosening. Surgical clips over the bilateral pelvis. No acute fracture or dislocation. Pubic s ymphysis and sacroiliac joints unremarkable. Degenerative changes of the lumbosacral spine. IMPRESSION: Left hip arthroplasty with no evidence of hardware failure.
--- NOTE | 2020-07-10 16:34 | PN ---
PROGRESS NOTE DATE OF SERVICE: 07/10/2020 This is a 74-year-old woman who was admitted with fall and fracture of the left tibia with surgery. The patient is on and off confused. Patient has complaints of pain. The activity level appears to be extremely poor. Patient also had anemia which was transfused. The CT scan showed no evidence of any acute stroke. Patient will be closely monitored at this time. A chest x-ray done today which was reviewed personally by me showed some increased bronchovascular markings. Creatinine is still elevated. PAST MEDICAL HISTORY: Reviewed. REVIEW OF SYSTEMS: CARDIOVASCULAR SYSTEM: No angina. RESPIRATION: As mentioned earlier. GI: As mentioned earlier. : As mentioned earlier. NERVOUS SYSTEM: Diffusely weak. CURRENT MEDICATIONS: Reviewed and include: 1. Tylenol. 2. Cepacol. 3. Questran. 4. Folic acid. 5. Solu-Cortef. 6. Lactonase. 7. Synthroid. 8. Milk of magnesia. 9. Lopressor. 10.ProAmatine. 11.Coumadin. 12.Multivitamins. 13.Narcan. 14.Vitamin B1. 15.Coumadin, on hold. PHYSICAL EXAM: Patient alert, oriented x2. Pulse 91, blood pressure 120/78, respirations 16, temperature 98.2, pulse ox 98% on room air: HEENT: Conjunctivae normal. NECK: No jugular venous distension. CARDIOVASCULAR SYSTEM: S1, S2, muffled. RESPIRATORY: Breath sounds diminished at the bases, no rhonchi, no crackles. ABDOMEN: Soft, nontender. No mass palpable. LEGS: No edema, no swelling. NERVOUS SYSTEM: Higher functions as mentioned earlier, moves all 4 limbs, mild diffuse weakness. LYMPHATICS: No lymph node enlargement in the neck or axillae. SKIN: No ulcer, no rashes. JOINTS: No active deforming arthropathy. LABS: WBC 12.2, hemoglobin is 8.1, INR 7.01. Sodium is 146, potassium 5.5 creatinine is 2.2, BUN is 55 and glucose 132. ASSESSMENT: 1. Status post fall and left hip hemiarthroplasty. 2. Change in mental status, metabolic encephalopathy, acute, multifactorial. 3. Anemia multifactorial, status post transfusion. 4. Generalized weakness and tiredness. 5. Acute renal failure with acute tubular necrosis. 6. Possible chronic kidney stage 3 baseline. 7. Possible acute gastritis. 8. Possible depression. 9. Atrial fibrillation, rate controlled. 10.Mild Coumadin coagulopathy improved. 11.Coumadin monitoring. 12.UTI with Citrobacter freundii and as well as enterococcus faecium which is vancomycin sensitive. 13.Diarrhea. 14.Hypokalemia. 15.Hyponatremia. 16.Mild metabolic acidosis. 17.Hypertension. 18.Diabetes mellitus type 2. 19.Hypothyroidism. 20.History of depression. 21.Chronic kidney stage 3 baseline. 22.NO CODE, NO CPR, NO VENT. RECOMMENDATION: In this 74-year-old woman who presented with multiple complex medical issues, will monitor the patient closely, continue the current management and symptomatic treatment, otherwise use Tylenol for pain management. I would recommend Lexapro, small dose at night and I would also activity and clear the patient to participate in the PT, OT evaluation. Hold Coumadin now for the Coumadin coagulopathy. Monitor PT, INR closely. The overall prognosis extremely guarded because of multiple complex medical issues, which I discussed at length with the [id number] at the bedside. Further recommendations to follow. MMODL / IJN: [id number] /
[2020-07-10 17:17] LABS: Glucose,Whole Blood 189 mg/dL (75-99)
[2020-07-10] MEDS ORDERED: WARFARIN 0.5 MG TAB PO ONE (18:00)
[2020-07-10] MEDS: LACTOBACILLUS ACIDOPH & BULGAR 1 EACH PACKET PO SCH (18:25)
[2020-07-10 20:38] LABS: Glucose,Whole Blood 155 mg/dL (75-99)
[2020-07-10] MEDS: ESCITALOPRAM 5 MG TAB PO SCH (22:24)
[2020-07-10] MEDS: MULTIVITAMINS, THERA 1 EACH TAB PO SCH (22:24)
[2020-07-11] MEDS: ACETAMINOPHEN TAB 325 MG TAB PO PRN ×3 (04:04→17:11)
[2020-07-11] MEDS: LEVOTHYROXINE 88 MCG TAB PO SCH (05:52)
[2020-07-11 06:37] LABS: Anisocytosis Slight; HCT 26.3 % (34.0-46.0); HGB 8.2 gm/dL (11.4-16.0); Hypochromasia Moderate; MCH 31.1 pg (25.0-35.0); MCHC 31.1 g/dL (31.0-37.0); MCV 99.8 fL (80.0-100.0); Macrocytosis Slight; Poikilocytosis Slight; RBC 2.63 m/uL (3.80-5.40); RDW 16.7 % (11.5-15.5)
[2020-07-11 06:49] LABS: Glucose,Whole Blood 146 mg/dL (75-99)
[2020-07-11] MEDS: HYDROCORTISONE SUCCINATE 100 MG/2 ML VIAL IV SCH ×2 (07:34→21:23)
[2020-07-11] MEDS: INSULIN ASPART (NovoLOG) 100 UNIT/ML VIAL SQ SCH ×4 (07:34→21:23)
[2020-07-11] MEDS: PANTOPRAZOLE 40 MG TABLET PO SCH ×2 (07:35→17:11)
[2020-07-11] MEDS: MIDODRINE 5 MG TAB PO SCH ×3 (07:35→17:10)
[2020-07-11] MEDS: SODIUM BICARBONATE TAB 650 MG TAB PO SCH (07:35)
[2020-07-11] MEDS: FOLIC ACID 1 MG TAB PO SCH (07:35)
[2020-07-11] MEDS: METOPROLOL TARTRATE 25 MG TAB PO SCH ×3 (07:35→21:22)
[2020-07-11] MEDS: SENNOSIDES-DOCUSATE SODIUM 1 EACH TAB PO SCH (07:35)
[2020-07-11] MEDS: THIAMINE 100 MG TAB PO SCH (07:35)
[2020-07-11 07:45] LABS: Platelet Count 51 k/uL (150-450)
[2020-07-11] MEDS: BALSALAZIDE DISODIUM 750 MG CAPSULE PO SCH ×3 (08:10→17:11)
[2020-07-11] MEDS: CHOLESTYRAMINE (WITH SUGAR) 4 GM PACKET PO SCH ×3 (08:15→18:03)
--- NOTE | 2020-07-11 08:48 | P.PN ---
Progress Note - Text Progress Note Date: 07/11/20 Orthopedics: History of present illness: Patient is a very pleasant 74-year-old female who is seen today in the bedside for follow-up evaluation for her left hip. She is status post left hip hemiarthroplasty performed on 07/02/2020. She feels her left hip pain is adequately controlled. She does have difficulty with weightbearing on the left lower extremity on her own. She has been working with physical therapy to aid in ambulation. She has been using a walker with therapy. She is planning for discharge to a rehabilitation facility once cleared by medicine. Nursing states patient may be discharged today. She is currently on Coumadin per internal medicine. She continues to be seen again by medicine for further treatment and evaluation for urinary tract infection, acute renal failure, and metabolic acidosis. She's had some difficulty recovering postoperatively due to other medical diagnoses. She is not communicating in full sentences at the bedside today but is able to follow commands. Her pain has been medically controlled. Patient's other medical diagnoses include hypertension, type 2 diabetes mellitus, hypothyroidism, and atrial fibrillation. Physical Exam Hip Hemiarthroplasty: Status post surgical day number 9 Patient is examined sitting bedside upright in bed Patient is awake and alert and able to follow commands Vital signs stable Good chest excursion with deep inspiration and expiration No signs or symptoms of DVT; no calf pain Lower extremity cuffs are currently in place bilaterally Dressing of the left hip is clean, dry, and intact; no erythema, purulence, or signs of infection No significant pain with palpation over the surgical site Bruising around the left hip surgical site Full range of motion of ankles bilaterally Dorsiflexion, plantarflexion, and extensor hallucis longus positive sustained bilaterally Neurovascularly intact bilateral lower extremities Capillary refill less than 2 seconds bilateral lower extremities Peoples catheter intact Assessment: Status post left hip hemiarthroplasty for left femoral neck fracture Status post fall Urinary tract infection Metabolic acidosis Acute renal failure Hypertension Type 2 diabetes mellitus Hypothyroidism Atrial fibrillation Plan: 1. Patient may continue to weight-bear as tolerated on the lower extremity; patient may work with physical therapy to increase mobility and ambulation; she is encouraged to continue using a walker to aid in ambulation as needed 2. Keep dressing over the left hip clean, dry, intact. Patient may shower with dressing intact. Dressing may be removed in 10 days postoperatively. 3. Continue pain control with medication as prescribed including [place] or tramadol 4. Medicine to continue following the patient for their other medical diagnoses include urinary tract infection, acute renal failure, and metabolic acidosis 5. Continue with with anticoagulation therapy with Coumadin as prescribed by medicine 6. Orthopedic standpoint, patient is clear for discharge once cleared by other medical providers including medicine. Patient is planning for discharge to the rehabilitation facility at the time of discharge. Phone discharge, patient may follow-up with Freddie Huber PA-C or Dr. Anastacio Gilbert at [facility] in 2-3 weeks following discharge
[2020-07-11 09:07] LABS: Band Neutrophils % 1 %; Metamyelocytes % 1 %; Neutrophils % (M) 87 %; Nucleated Red Blood Cells 2 /100 WBC (0-0); Total Cells Counted 200
[2020-07-11 09:08] LABS: Eosinophils # (M) 0.13 k/uL (0-0.7); Lymphocytes # (M) 0.94 k/uL (1.0-4.8); Metamyelocytes # (M) 0.13 k/uL (0); Monocytes # (M) 0.67 k/uL (0-1.0); WBC 13.4 k/uL (3.8-10.6)
[2020-07-11 09:56] LABS: African American GFR (CKD) 19.1 (60.0-200.0); Anion Gap 13.7 mmol/L (4.00-12.00); BUN/Creat Ratio 22.22 Ratio (12.00-20.00); Calcium 8.9 mg/dL (8.7-10.3); Carbon Dioxide 20.3 mmol/L (21.6-31.8); Non-African American GFR(CKD) 16.5 (60.0-200.0); Potassium 4.7 mmol/L (3.5-5.5)
[2020-07-11 10:26] LABS: INR 3.3 (0.90-1.11); Prothrombin Time 33.7 sec (9.9-11.9)
[2020-07-11 11:36] LABS: Glucose,Whole Blood 177 mg/dL (75-99)
[2020-07-11] MEDS: DEXTROSE 5% IN WATER 1,000 ML IV SCH (12:05)
--- NOTE | 2020-07-11 16:11 | PN ---
PROGRESS NOTE DATE OF SERVICE: 07/11/2020 This 74-year-old woman admitted after fracture and fall as well as left hip hemiarthroplasty is being closely monitored. Patient continues to be confused, with fluctuating sensorium. The patient is also moaning at this time. The patient also had renal failure and became more hypernatremic. The pelvic x-ray did not show acute abnormality. Chest x-ray which was done yesterday, personally reviewed by me, showed persistent small right pleural effusion with not much change. PT/OT just evaluated the patient for ECF rehab. Past medical history reviewed. Review of systems could not be taken; the patient is mildly confused. Coumadin has been held at this time. CURRENT MEDICATIONS: Reviewed. They include Tylenol, Colace, Cepacol, Questran, Lomotil, Lexapro, Flonase, folic acid, Solu-Cortef, NovoLog, Lactinex, Synthroid, lopressor, ProAmatine, Coumadin, multivitamins, Narcan, Protonix, Senokot-S, vitamin B1. PHYSICAL EXAMINATION: Patient is alert, oriented x1. Pulse 128, blood pressure 110/79, respiration 16, temperature 97.1, pulse ox 94% on room air. HEENT: Conjunctivae normal. NECK: No jugular venous distention. CARDIOVASCULAR SYSTEM: S1, S2 muffled. RESPIRATORY SYSTEM: Breath sounds diminished at the bases. Scattered rhonchi and crackles. ABDOMEN: Soft, non-tender. No mass palpable. LEGS: No edema. No swelling. NERVOUS SYSTEM: No focal deficit. LABS: Labs at this time show WBC 13.4, hemoglobin 8.2, INR 3.3. Other labs are noted. ASSESSMENT: 1. Status post fall and left hip hemiarthroplasty. 2. Change in mental status, metabolic encephalopathy, acute, multifactorial. 3. Anemia, multifactorial, status post transfusion for symptomatic anemia. 4. Generalized weakness and tiredness. 5. Acute delirium. 6. Acute renal failure with acute tubular necrosis with prerenal factors. 7. Chronic kidney disease, stage 3 baseline. 8. Acute gastritis. 9. Depression. 10.Atrial fibrillation, rate controlled. 11.Mild Coumadin coagulopathy, improving. 12.Coumadin monitoring. 13.Urinary tract infection with Citrobacter freundii as well as Enterococcus faecium which is vancomycin-sensitive. 14.Diarrhea. 15.Hypokalemia. 16.Hyponatremia. 17.Mild metabolic acidosis. 18.Hypertension. 19.Diabetes mellitus, type 2. 20.Hypothyroidism. 21.History of depression. 22.Chronic kidney disease, stage 3 baseline. 23.NO CODE, NO CPR, NO VENT. RECOMMENDATIONS AND DISCUSSION: I recommend to continue current medications, continue with the monitoring, symptomatic treatment. White count is still elevated. Patient still has renal failure with creatinine about 2.7. I would recommend D5 water. Discussed with Dr. Johnson. Monitor electrolytes closely. PT/OT evaluation. Monitor sensorium closely. Patient also possibly has delirium which is multifactorial. Will hold the Coumadin for today also and closely follow with Infectious Disease. The cultures are as before. UA done on 07/06 has significant improvement. The repeat culture on 06/29 was negative. Repeat a urine culture and blood culture at this time. Further recommendations to follow. MMODL / IJN: [id number] /
[2020-07-11] MEDS: LACTOBACILLUS ACIDOPH & BULGAR 1 EACH PACKET PO SCH (17:11)
[2020-07-11 17:30] LABS: Glucose,Whole Blood 193 mg/dL (75-99)
--- NOTE | 2020-07-11 17:32 | PN ---
PROGRESS NOTE DATE OF SERVICE: 07/11/2020 REASON FOR FOLLOWUP: Recurrent urinary tract infection. INTERVAL HISTORY: The patient is currently afebrile. The patient is breathing comfortably. Oral intake remains poor, but no vomiting or diarrhea has been reported. Patient denies having any chest pain or cough. PHYSICAL EXAMINATION: Blood pressure 110/79 with a pulse of 128, temperature 97.9. She is 94% on room air. General description is an elderly female lying in bed in no distress. RESPIRATORY SYSTEM: Unlabored breathing. Clear to auscultation anteriorly. HEART: S1, S2. Regular rate and rhythm. ABDOMEN: Soft. No tenderness. LABS: Hemoglobin 8.2, white count 13.4. Creatinine is 2.7. DIAGNOSTIC IMPRESSION AND PLAN: 1. Patient with a recurrent urinary tract infection. Her UTI has been adequately treated, currently being managed off antibiotic therapy. 2. Patient with mildly elevated white count. This patient has been on multiple courses on antibiotics and is also on hydrocortisone, likely the reason for her elevated white count, as currently no evidence of infection. Will monitor patient closely. MMODL / IJN: [id number] /
[2020-07-11] MEDS ORDERED: WARFARIN 0.5 MG TAB PO ONE (18:00)
--- NOTE | 2020-07-11 20:02 | PN ---
PROGRESS NOTE Patient is seen for followup for acute kidney injury on top of chronic kidney disease. Patient has been fairly stable and awaiting discharge for the last few days. However, she had developed severe hypokalemia, which was replaced, and then hypernatremia, and serum sodium has started to climb again. This morning patient is sleeping. She has not been eating much. Therefore she will likely not be discharged again today. No diarrhea currently. Patient did have diarrhea about 3 to 4 days ago which improved with Questran. She has been treated for urinary tract infection this admission. PHYSICAL EXAMINATION: On examination today, blood pressure was 110/79, heart rate 120 per minute. She is afebrile. EXAMINATION OF THE HEART: S1 and S2. EXAMINATION OF LUNGS: Bilateral breath sounds are heard. ABDOMEN: Soft, non-tender. Examination of lower extremities shows edema 2+ bilaterally. [employer] exam is grossly intact. Patient is quite weak but follows commands. LABS: Labs show sodium of 148, potassium 4.7, BUN 60, serum creatinine 2.7, hemoglobin of 8.2 g/dL, calcium 8.9. ASSESSMENT: 1. Acute kidney injury, acute tubular necrosis. Renal function is fairly stable, with creatinine staying at about 2.7 to 2.6 mg/dL. 2. Chronic kidney disease secondary to nephrosclerosis. Baseline creatinine 1.5. Currently patient has an indwelling Peoples catheter. Ultrasound did not show any significant findings. 3. Urinary tract infection, maintained on antibiotics. Urine culture grew Citrobacter freundii and Enterococcus, with repeat cultures negative. 4. Hypernatremia associated with free water deficit. Patient recently had diarrhea as well. I will add D5W and she is encouraged to increase free water intake. 5. Hypokalemia, status post replacement, now improved. 6. Adrenal insufficiency diagnosed on one of her last admissions, maintained on Solu- Cortef. PLAN: Add D5W. Continue with Solu-Cortef and repeat labs in a.m. Hold discharge for now. I will discontinue the sodium bicarb as well for now, as it may be contributing to the hyponatremia. MMODL / IJN: [id number] /
[2020-07-11 21:15] LABS: Glucose,Whole Blood 174 mg/dL (75-99)
[2020-07-11] MEDS: MULTIVITAMINS, THERA 1 EACH TAB PO SCH (21:22)
[2020-07-11] MEDS: ESCITALOPRAM 5 MG TAB PO SCH (21:22)
[2020-07-12] MEDS: ACETAMINOPHEN TAB 325 MG TAB PO PRN ×2 (00:49→16:49)
[2020-07-12] MEDS: LEVOTHYROXINE 88 MCG TAB PO SCH (05:58)
[2020-07-12 07:03] LABS: Glucose,Whole Blood 174 mg/dL (75-99)
[2020-07-12 07:16] LABS: Band Neutrophils % 1 %; HGB 8.1 gm/dL (11.4-16.0); Lymphocytes # (M) 1.52 k/uL (1.0-4.8); MCH 31.5 pg (25.0-35.0); MCHC 31.3 g/dL (31.0-37.0); MCV 100.8 fL (80.0-100.0); Metamyelocytes # (M) 0.17 k/uL (0); Metamyelocytes % 1 %; Monocytes # (M) 1.18 k/uL (0-1.0); Neutrophils % (M) 83 %; Nucleated Red Blood Cells 3 /100 WBC (0-0); Polychromasia Present; RBC 2.58 m/uL (3.80-5.40); Total Cells Counted 200; WBC 16.9 k/uL (3.8-10.6)
[2020-07-12 07:17] LABS: Anisocytosis Slight; Hypochromasia Marked; Macrocytosis Slight; Mean Platelet Volume 13.2; Platelet Count 82 k/uL (150-450); Poikilocytosis Slight; RDW 16.4 % (11.5-15.5)
[2020-07-12 07:18] LABS: Large Platelets Present
[2020-07-12] MEDS: HYDROCORTISONE SUCCINATE 100 MG/2 ML VIAL IV SCH ×2 (09:07→20:44)
[2020-07-12] MEDS: INSULIN ASPART (NovoLOG) 100 UNIT/ML VIAL SQ SCH ×4 (09:07→20:45)
[2020-07-12] MEDS: MIDODRINE 5 MG TAB PO SCH ×3 (09:07→16:49)
[2020-07-12] MEDS: METOPROLOL TARTRATE 25 MG TAB PO SCH ×3 (09:07→20:44)
[2020-07-12] MEDS: PANTOPRAZOLE 40 MG TABLET PO SCH ×2 (09:07→16:49)
[2020-07-12 09:08] LABS: African American GFR (CKD) 18.3 (60.0-200.0); Anion Gap 14.4 mmol/L (4.00-12.00); BUN/Creat Ratio 22.86 Ratio (12.00-20.00); Calcium 8.4 mg/dL (8.7-10.3); Carbon Dioxide 19.6 mmol/L (21.6-31.8); Non-African American GFR(CKD) 15.7 (60.0-200.0); Potassium 4.1 mmol/L (3.5-5.5)
[2020-07-12] MEDS: BALSALAZIDE DISODIUM 750 MG CAPSULE PO SCH ×3 (09:08→16:50)
[2020-07-12] MEDS: DEXTROSE 5% IN WATER 1,000 ML IV SCH (09:08)
[2020-07-12] MEDS: CHOLESTYRAMINE (WITH SUGAR) 4 GM PACKET PO SCH ×3 (09:14→16:59)
[2020-07-12] MEDS: SENNOSIDES-DOCUSATE SODIUM 1 EACH TAB PO SCH (09:14)
[2020-07-12 11:49] LABS: Glucose,Whole Blood 178 mg/dL (75-99)
[2020-07-12] MEDS: THIAMINE 100 MG TAB PO SCH (11:58)
[2020-07-12] MEDS: FOLIC ACID 1 MG TAB PO SCH (11:58)
[2020-07-12 12:00] LABS: INR 2.02 (0.90-1.11)
--- NOTE | 2020-07-12 14:02 | PN ---
PROGRESS NOTE DATE OF SERVICE: 07/12/20 REASON FOR FOLLOWUP: 1. UTI. 2. Elevated white count. INTERVAL HISTORY: Patient is currently afebrile. The patient is breathing comfortably on room air. Denies having any chest pain. No shortness of breath or cough. No abdominal pain. No diarrhea has been reported. PHYSICAL EXAMINATION: Blood pressure 118/79, pulse 100, temperature 97.7. She is 100% on room air. General description is an is an elderly female lying in bed in no distress. Respiratory system: Unlabored breathing, clear to auscultation anteriorly. Heart S1, S2. Regular rate and rhythm. Abdomen soft, no tenderness. LABS: Hemoglobin 8.1, hematocrit 16.9, BUN of 64, creatinine is 2.8. DIAGNOSTIC IMPRESSION AND PLAN: 1. Patient with a urinary tract infection that has been adequately treated. Repeat urine culture has been negative. 2. Elevated white count, more likely steroid effect and needs to be monitored closely. Has been not running fever or any change in clinical condition. MMODL / IJN: [id number] /
--- NOTE | 2020-07-12 14:20 | P.PN ---
Subjective Progress Note Date: 07/12/20 Principal diagnosis: This 74-year-old female with chronic kidney disease and acute kidney injury. She was admitted with fall and left hip fracture on 06/27/2020 she had acute kidney injury secondary to low blood pressure, creatinine was 2.16 on admission went up to 3.3 on 07/04/2020 and an improved to 2.4 dated 07/09/2020 and then started to go up again to 2.8 as of this morning. She has not been eating very well. She was started and D5W because of hypernatremia, possibly from loose stools She continues to moan and groan but when she was asked she was able to answer a few questions but somewhat disoriented to place. Her daughter was there in her room and she is able to recognize she denies any fever chills cough shortness of breath abdominal pain. Objective - Vital Signs Vital signs: Vital Signs Temp 97.7 F 07/12/20 07:46 Pulse 100 07/12/20 07:46 Resp 17 07/12/20 07:46 BP 118/79 07/12/20 07:46 Pulse Ox 100 07/12/20 07:46 Intake & Output 07/11/20 07/12/20 07/12/20 18:59 06:59 18:59 Output Total 282 800 Balance -282 -800 Output: Urine 282 800 Other: Voiding Method Indwelling Catheter Indwelling Catheter Indwelling Catheter # Voids 1 # Bowel Movements 2 1 Exam general awake alert but disoriented to place. Oriented to person HEENT exam JVP is elevated Neck is supple no facial asymmetry Lungs are clear to auscultation fair air entry few coarse crackles. A computed tomography scan on 07/10/2020 shows some atelectasis Heart sounds are unremarkable. No murmur rub gallop Abdomen soft nontender Extremity exam was trace edema Neurologically awake alert but oriented as above - Labs CBC & Chem 7: 07/12/20 06:16 07/12/20 06:16 Labs: Abnormal Lab Results - Last 24 Hours (Table) 07/11/20 07/11/20 07/12/20 Range/Units 17:27 21:14 06:16 WBC 16.9 H (3.8-10.6) k/uL RBC 2.58 L (3.80-5.40) m/uL Hgb 8.1 L (11.4-16.0) gm/dL Hct 26.0 L (34.0-46.0) % MCV 100.8 H (80.0-100.0) fL RDW 16.4 H (11.5-15.5) % Plt Count 82 L D (150-450) k/uL Neutrophils # (Manual) 14.10 H (1.3-7.7) k/uL Monocytes # (Manual) 1.18 H (0-1.0) k/uL Metamyelocytes # (Man) 0.17 H (0) k/uL Nucleated RBCs 3 H (0-0) /100 WBC PT (9.9-11.9) sec INR (0.90-1.11) Chloride (96-109) mmol/L Carbon Dioxide (21.6-31.8) mmol/L Anion Gap (4.00-12.00) mmol/L BUN (9.0-27.0) mg/dL Creatinine (0.6-1.5) mg/dL Est GFR (CKD-EPI)AfAm (60.0-200.0) Est GFR (CKD-EPI)NonAf (60.0-200.0) BUN/Creatinine Ratio (12.00-20.00) Ratio Glucose (70-110) mg/dL POC Glucose (mg/dL) 193 H 174 H (75-99) mg/dL Calcium (8.7-10.3) mg/dL 07/12/20 07/12/20 07/12/20 Range/Units 06:16 06:16 07:01 WBC (3.8-10.6) k/uL RBC (3.80-5.40) m/uL Hgb (11.4-16.0) gm/dL Hct (34.0-46.0) % MCV (80.0-100.0) fL RDW (11.5-15.5) % Plt Count (150-450) k/uL Neutrophils # (Manual) (1.3-7.7) k/uL Monocytes # (Manual) (0-1.0) k/uL Metamyelocytes # (Man) (0) k/uL Nucleated RBCs (0-0) /100 WBC PT 21.0 H (9.9-11.9) sec INR 2.02 H (0.90-1.11) Chloride 111 H (96-109) mmol/L Carbon Dioxide 19.6 L (21.6-31.8) mmol/L Anion Gap 14.40 H (4.00-12.00) mmol/L BUN 64.0 H (9.0-27.0) mg/dL Creatinine 2.8 H (0.6-1.5) mg/dL Est GFR (CKD-EPI)AfAm 18.3 L (60.0-200.0) Est GFR (CKD-EPI)NonAf 15.7 L (60.0-200.0) BUN/Creatinine Ratio 22.86 H (12.00-20.00) Ratio Glucose 161 H (70-110) mg/dL POC Glucose (mg/dL) 174 H (75-99) mg/dL Calcium 8.4 L (8.7-10.3) mg/dL 07/12/20 Range/Units 11:46 WBC (3.8-10.6) k/uL RBC (3.80-5.40) m/uL Hgb (11.4-16.0) gm/dL Hct (34.0-46.0) % MCV (80.0-100.0) fL RDW (11.5-15.5) % Plt Count (150-450) k/uL Neutrophils # (Manual) (1.3-7.7) k/uL Monocytes # (Manual) (0-1.0) k/uL Metamyelocytes # (Man) (0) k/uL Nucleated RBCs (0-0) /100 WBC PT (9.9-11.9) sec INR (0.90-1.11) Chloride (96-109) mmol/L Carbon Dioxide (21.6-31.8) mmol/L Anion Gap (4.00-12.00) mmol/L BUN (9.0-27.0) mg/dL Creatinine (0.6-1.5) mg/dL Est GFR (CKD-EPI)AfAm (60.0-200.0) Est GFR (CKD-EPI)NonAf (60.0-200.0) BUN/Creatinine Ratio (12.00-20.00) Ratio Glucose (70-110) mg/dL POC Glucose (mg/dL) 178 H (75-99) mg/dL Calcium (8.7-10.3) mg/dL Microbiology - Last 24 Hours (Table) 07/11/20 19:40 Urine Culture - Preliminary Urine,Catheterized Assessment and Plan Assessment: Impression 1. Acute kidney injury from low blood pressure possibly low intake and creatinine peaked and then improved but then worsening again over the last 2 or 3 days, This probably is from low intake again. No evidence of hydronephrosis on a recent computed tomography scan 06/30/2020 2. Blood pressure remains with low intake 3. Status post hip fracture and surgery 4. Status post colovesical fistula surgery recently he did 5. Hyponatremia improved on D5W to 145 sodium this morning Recommendation 1. Change IV fluid to half normal saline at 75 an hour watch sodium. 2. If creatinine continues to go up Will obtain ultrasound of the kidney 3. Maintain the Peoples catheter for today
[2020-07-12] MEDS: LACTOBACILLUS ACIDOPH & BULGAR 1 EACH PACKET PO SCH (16:49)
[2020-07-12] MEDS: SODIUM CHLORIDE 0.45% 1,000 ML IV SCH (16:50)
--- NOTE | 2020-07-12 16:50 | PN ---
PROGRESS NOTE DATE OF SERVICE: 07/12/2020 This 74-year-old woman who was admitted after a fall and left hip arthroplasty had change in mental status. The patient also had hyponatremia which was treated with D5 drip at this time. The patient also has significant intolerance to pain medications. The patient also is not very cooperative with the PT/OT also. The patient has renal failure which is mild to moderate intensity. Dr. Johnson from Nephrology is following the patient closely. The creatinine currently today is 2.8 and BUN 64. Hemoglobin is rather stable at 8.1, white count is elevated 16.2. The patient is on high-dose IV steroids. Past medical history reviewed. REVIEW OF SYSTEMS: Could not be taken. The patient is slightly drowsy. CURRENT MEDICATIONS: Reviewed and include: Tylenol, Cepacol, Questran, Lomotil, Lexapro, folic acid, Solu-Cortef, Lactinex, ProAmatine, Multivitamins, Zofran, Coumadin. PHYSICAL EXAM: Patient is alert, oriented x3. Pulse is 98. Blood pressure 105/60, respiration 17, temperature 97.3, pulse ox 98% on room air. HEENT: Conjunctivae normal. Oral mucosa moist. NECK is no jugular venous distention. CARDIOVASCULAR system: S1, S2 muffled. RESPIRATION: Breath sounds diminished in the bases. A few scattered rhonchi. ABDOMEN: Soft, nontender. No mass. LEGS are no edema, no swelling. NERVOUS SYSTEM: No focal deficits. LABS: At this time shows WBC 16.2, hemoglobin is 8.1. Other labs are noted. INR is 2.02. ASSESSMENT: 1. Status post fall and left hip hemiarthroplasty. 2. Change in mental status, metabolic encephalopathy, acute, multifactorial. 3. Anemia, multifactorial status post transfusion for symptomatic anemia. 4. Generalized weakness and tiredness. 5. Acute delirium. 6. Acute renal failure with acute tubular necrosis with prerenal factors. 7. Chronic kidney disease stage 3 baseline. 8. Acute gastritis. 9. Depression. 10.Atrial fibrillation, rate controlled. 11.Mild Coumadin coagulopathy improved. 12.Coumadin monitoring. 13.Urinary tract infection with Citrobacter freundii as well as Enterobacter faecium which is vancomycin sensitive. 14.Diarrhea. 15.Sick euthyroid syndrome. 16.Hypokalemia. 17.Hyponatremia. 18.Metabolic acidosis. 19.Hypertension. 20.Diabetes mellitus type 2. 21.Hypothyroidism. 22.History of depression. 23.Chronic kidney stage 3 baseline. 24.NO CODE, NO CPR, NO VENT. RECOMMENDATIONS AND DISCUSSION: In this 74-year-old woman who presented with multiple complex medical issues, we will monitor the patient closely, continue the current medications, management and symptomatic treatment. Continue with D5 water drips. Sodium is 145 today, as mentioned earlier. Encourage PT/OT. I had a detailed discussion with daughter at the bedside. Recommended continue the current medication. Monitor creatinine closely. Otherwise, check the serum cortisol PT/OT evaluation. Guarded prognosis. Further recommendations to follow. MMODL / IJN: [id number] / LUCÍA
[2020-07-12 17:05] LABS: Glucose,Whole Blood 239 mg/dL (75-99)
[2020-07-12] MEDS ORDERED: WARFARIN 2 MG TAB PO ONE (18:00)
[2020-07-12 20:19] LABS: Glucose,Whole Blood 215 mg/dL (75-99)
[2020-07-12] MEDS: MULTIVITAMINS, THERA 1 EACH TAB PO SCH (20:44)
[2020-07-12] MEDS: ESCITALOPRAM 5 MG TAB PO SCH (20:44)
[2020-07-13] MEDS: SODIUM CHLORIDE 0.45% 1,000 ML IV SCH ×2 (04:54→17:07)
[2020-07-13] MEDS: LEVOTHYROXINE 88 MCG TAB PO SCH (05:24)
[2020-07-13 06:47] LABS: Glucose,Whole Blood 143 mg/dL (75-99)
[2020-07-13] MEDS: DIPHENOX-ATROP 2.5-0.025 MG 1 EACH TAB PO PRN (07:53)
[2020-07-13] MEDS: MIDODRINE 5 MG TAB PO SCH ×3 (07:53→17:07)
[2020-07-13] MEDS: METOPROLOL TARTRATE 25 MG TAB PO SCH ×3 (07:53→19:47)
[2020-07-13] MEDS: PANTOPRAZOLE 40 MG TABLET PO SCH ×2 (07:53→17:07)
[2020-07-13] MEDS: ACETAMINOPHEN TAB 325 MG TAB PO PRN (07:53)
[2020-07-13] MEDS: INSULIN ASPART (NovoLOG) 100 UNIT/ML VIAL SQ SCH ×4 (07:54→20:49)
[2020-07-13] MEDS: HYDROCORTISONE SUCCINATE 100 MG/2 ML VIAL IV SCH ×2 (07:54→20:49)
[2020-07-13] MEDS: BALSALAZIDE DISODIUM 750 MG CAPSULE PO SCH ×3 (07:55→17:08)
[2020-07-13] MEDS: SENNOSIDES-DOCUSATE SODIUM 1 EACH TAB PO SCH (07:55)
[2020-07-13 09:39] LABS: INR 1.9 (0.90-1.11); Prothrombin Time 19.8 sec (9.9-11.9)
--- NOTE | 2020-07-13 09:41 | P.PN ---
Subjective Progress Note Date: 07/13/20 Principal diagnosis: This 74-year-old female with chronic kidney disease and acute kidney injury. She was admitted with fall and left hip fracture on 06/27/2020 she had acute kidney injury secondary to low blood pressure, creatinine was 2.16 on admission went up to 3.3 on 07/04/2020 and an improved to 2.4 dated 07/09/2020 and then started to go up again to 2.8 today on 07/12/2020. She has not been eating very well. She was started and D5W because of hypernatremia, possibly from loose stools. She was additionally started on half-normal saline yesterday at 75 mL an hour because of worsening creatinine. Her urine output is documented at 10 82 mL, her vital signs are stable. She continues to have loose stools, several per day She continues to moan and groan but when she was asked she was able to answer a few questions but somewhat disoriented to place. She is known with him and arthritis sleep apnea diabetes and possibly Crohn's disease or she is on mesalamine and Lomotil Objective - Vital Signs Vital signs: Vital Signs Temp 97.3 F L 07/13/20 07:17 Pulse 106 H 07/13/20 07:17 Resp 17 07/13/20 07:17 BP 105/71 07/13/20 07:17 Pulse Ox 94 L 07/13/20 07:17 Intake & Output 07/12/20 07/13/20 07/13/20 18:59 06:59 18:59 Intake Total 225 Output Total 350 Balance -125 Intake: Intake, IV Titration 225 Amount Sodium Chloride 0.45% 1, 225 000 ml @ 75 mls/hr IV . [id number] [facility] Rx#:[id number] Output: Urine 350 Other: Voiding Method Indwelling Catheter Indwelling Catheter # Bowel Movements 3 On examination she is awake alert but keeps moaning and groaning sometimes she responds to questions other tubular times disregards HEENT exam no JVP neck is supple no facial asymmetry Lungs are somewhat difficult to auscultate because of poor air entry and lack of cooperation Heart sounds are unremarkable for any murmur rub gallop Abdomen soft nontender Extreme exam was mild edema Neurologically awake alert but difficult to know her orientation is seen just moans and groans seems to follow some orders - Labs CBC & Chem 7: 07/12/20 06:16 07/12/20 06:16 Labs: Abnormal Lab Results - Last 24 Hours (Table) 07/12/20 07/12/20 07/12/20 Range/Units 06:16 11:46 17:03 PT 21.0 H (9.9-11.9) sec INR 2.02 H (0.90-1.11) POC Glucose (mg/dL) 178 H 239 H (75-99) mg/dL 07/12/20 07/13/20 Range/Units 20:16 06:45 PT (9.9-11.9) sec INR (0.90-1.11) POC Glucose (mg/dL) 215 H 143 H (75-99) mg/dL Microbiology - Last 24 Hours (Table) 07/11/20 19:40 Urine Culture - Preliminary Urine,Catheterized Yeast species 07/11/20 14:47 Blood Culture - Preliminary Blood No Growth after 24 hours Assessment and Plan Assessment: Impression 1. Acute kidney injury from low blood pressure possibly low intake and creatinine peaked and then improved but then worsening again over the last 2 or 3 days, This probably is from combination of diarrhea low intake again. No evidence of hydronephrosis on a recent computed tomography scan 06/30/2020 2. Blood pressure remains with low intake and diarrhea 3. Status post hip fracture and surgery 4. Status post colovesical fistula surgery recently. 5. Hyponatremia improved on D5W to 145 sodium as of yesterday labs pending today Recommendation 1. Continue IV fluid to half normal saline at 75 an hour watch sodium. 2. If creatinine continues to go up Will obtain ultrasound of the kidney 3. Maintain the Peoples catheter for today
[2020-07-13] MEDS: CHOLESTYRAMINE (WITH SUGAR) 4 GM PACKET PO SCH ×3 (10:18→17:07)
--- NOTE | 2020-07-13 11:26 | P.PN ---
Subjective Progress Note Date: 07/13/20 Principal diagnosis: Status post hemiarthroplasty left hip. Patient is a very pleasant 74-year-old female who is seen today in the bedside for follow-up evaluation for her left hip. She is status post left hip hemiarthroplasty performed on 07/02/2020. The nurse reports increase in drainage to the left hip. Vital signs are stable. Objective - Vital Signs Vital signs: Vital Signs Temp 97.3 F L 07/13/20 07:17 Pulse 106 H 07/13/20 07:17 Resp 17 07/13/20 07:17 BP 105/71 07/13/20 07:17 Pulse Ox 94 L 07/13/20 07:17 Intake & Output 07/12/20 07/13/20 07/13/20 18:59 06:59 18:59 Intake Total 225 Output Total 350 Balance -125 Intake: Intake, IV Titration 225 Amount Sodium Chloride 0.45% 1, 225 000 ml @ 75 mls/hr IV . [id number] Rx#:[id number] Output: Urine 350 Other: Voiding Method Indwelling Catheter Indwelling Catheter Indwelling Catheter # Bowel Movements 3 - Exam This is a 74-year-old female in no acute distress. She is alert but is not responding verbally today. She is rolled to her right side and on exam of the left hip she has significant ecchymosis. Steri-Strips are in place around the incision. Her dressing is saturated with serosanguineous fluid. There is a small 5 mm opening at the distal aspect of the incision. There is no follow order. There is no purulent drainage noted. No active drainage noted. She has full foot and ankle motion without difficulty or pain. Neurovascular status to the lower extremity is intact. - Labs CBC & Chem 7: 07/12/20 06:16 07/12/20 06:16 Labs: Abnormal Lab Results - Last 24 Hours (Table) 07/12/20 07/12/20 07/12/20 Range/Units 06:16 11:46 17:03 PT 21.0 H (9.9-11.9) sec INR 2.02 H (0.90-1.11) POC Glucose (mg/dL) 178 H 239 H (75-99) mg/dL Cortisol (3.10-22.40) ug/dL 1007/13/20 07/13/20 Range/Units 20:16 05:36 05:36 PT 19.8 H (9.9-11.9) sec INR 1.90 H (0.90-1.11) POC Glucose (mg/dL) 215 H (75-99) mg/dL Cortisol 43.5 H (3.10-22.40) ug/dL 07/13/20 Range/Units 06:45 PT (9.9-11.9) sec INR (0.90-1.11) POC Glucose (mg/dL) 143 H (75-99) mg/dL Cortisol (3.10-22.40) ug/dL Microbiology - Last 24 Hours (Table) 07/11/20 19:40 Urine Culture - Preliminary Urine,Catheterized Yeast species 07/11/20 14:47 Blood Culture - Preliminary Blood No Growth after 24 hours Assessment and Plan (1) History of hemiarthroplasty of left hip Current Visit: Yes Status: Acute Code(s): Z96.642 - PRESENCE OF LEFT ARTIFICIAL HIP JOINT SNOMED Code(s): 945808544 (2) Closed left hip fracture Current Visit: Yes Status: Acute Code(s): S72.002A - FRACTURE OF UNSP PART O F NECK OF LEFT FEMUR, INIT SNOMED Code(s): 901572847 (3) Fall Current Visit: Yes Status: Acute Code(s): W19.XXXA - UNSPECIFIED FALL, INITIAL ENCOUNTER SNOMED Code(s): 2051904 Plan: The clinical findings are discussed with the patient and nursing staff. Her dressing is changed today. I replaced a couple of the distal Steri-Strips. Dressing consists of ABDs and compression foam tape. Nursing is instructed to change dressing twice daily or more often if necessary. We will continue to follow.
[2020-07-13] MEDS: THIAMINE 100 MG TAB PO SCH (11:54)
[2020-07-13] MEDS: FOLIC ACID 1 MG TAB PO SCH (11:54)
[2020-07-13 12:00] LABS: Glucose,Whole Blood 126 mg/dL (75-99)
[2020-07-13 12:21] LABS: Anisocytosis Slight; HCT 26.6 % (34.0-46.0); HGB 8.3 gm/dL (11.4-16.0); Hypochromasia Marked; MCH 31.9 pg (25.0-35.0); MCHC 31.2 g/dL (31.0-37.0); MCV 102.2 fL (80.0-100.0); Macrocytosis Slight; Mean Platelet Volume 13.7; Platelet Count 113 k/uL (150-450); RBC 2.61 m/uL (3.80-5.40); RDW 16.1 % (11.5-15.5)
[2020-07-13 12:37] LABS: Band Neutrophils % 2 %; Lymphocytes # (M) 2.03 k/uL (1.0-4.8); Metamyelocytes # (M) 0.41 k/uL (0); Metamyelocytes % 2 %; Monocytes # (M) 0.81 k/uL (0-1.0); Myelocytes # (M) 0.41 k/uL (0); Myelocytes % 2 %; Neutrophils % (M) 82 %; Nucleated Red Blood Cells 17 /100 WBC (0-0); Total Cells Counted 200; WBC 20.3 k/uL (3.8-10.6)
[2020-07-13 12:38] LABS: Large Platelets Present; Poikilocytosis (M) Present; Polychromasia Present
[2020-07-13 13:47] LABS: African American GFR (CKD) 19.1 (60.0-200.0); Anion Gap 15.7 mmol/L (4.00-12.00); BUN/Creat Ratio 23.7 Ratio (12.00-20.00); Calcium 8.7 mg/dL (8.7-10.3); Carbon Dioxide 19.3 mmol/L (21.6-31.8); Non-African American GFR(CKD) 16.5 (60.0-200.0); Potassium 3.7 mmol/L (3.5-5.5)
[2020-07-13 17:02] LABS: Glucose,Whole Blood 173 mg/dL (75-99)
[2020-07-13] MEDS: LACTOBACILLUS ACIDOPH & BULGAR 1 EACH PACKET PO SCH (17:07)
[2020-07-13] MEDS ORDERED: WARFARIN 2 MG TAB PO ONE (18:00)
[2020-07-13] MEDS: ONDANSETRON 4 MG/2 ML VIAL IVP PRN (19:25)
[2020-07-13 20:25] LABS: Glucose,Whole Blood 168 mg/dL (75-99)
[2020-07-13] MEDS: MULTIVITAMINS, THERA 1 EACH TAB PO SCH (20:49)
[2020-07-13] MEDS: ESCITALOPRAM 5 MG TAB PO SCH (20:49)
--- NOTE | 2020-07-13 23:10 | PN ---
PROGRESS NOTE DATE OF SERVICE: 07/13/2020 This 74-year-old woman who was admitted with a fall and left hip hemiarthroplasty is being closely monitored. The patient's sensorium is slightly better today. The patient had D5 water, the sodium is improved to 147. Creatinine is still elevated at 2.7. Multiple consultants are following the closely. PT, OT evaluated the patient. Hemoglobin 8.3, which was improved from 6.4. WBC still elevated 20.3. The patient is on IV steroids. The most recent cultures are the urine culture showed yeast. PAST MEDICAL HISTORY: Reviewed. REVIEW OF SYSTEMS: CARDIOVASCULAR SYSTEM: No angina. RESPIRATORY SYSTEM: As mentioned earlier. GI: As mentioned earlier. : No dysuria. NERVOUS SYSTEM: As mentioned earlier. CURRENT MEDICATIONS: The current medications are reviewed and include Tylenol, Cepacol, Questran, Lexapro, Flonase, Solu-Cortef, NovoLog, Lactinex, Synthroid, ProAmatine, multivitamins, Protonix, Senokot, vitamin B1. PHYSICAL EXAMINATION: The patient is alert and oriented x2. Pulse is 91, blood pressure 111/80, respiration 17, temperature 97.7, pulse ox 95% on room air. HEENT: Conjunctivae normal. NECK: No jugular venous distention. CARDIOVASCULAR: S1, S2 muffled. RESPIRATORY: Breath sounds diminished at the bases. A few scattered rhonchi and crackles. ABDOMEN: Soft, mild diffuse distention, otherwise, nontender, no guarding, no rigidity. No mass palpable. LEGS: No edema, no swelling. NERVOUS SYSTEM: No focal deficits. LABS: WBC 20.3, hemoglobin is 8.3. Sodium 147, potassium 3.7. COVID-19 is negative. ASSESSMENT: 1. Status post fall and left hip hemiarthroplasty. 2. Change in mental status, acute metabolic encephalopathy, multifactorial. 3. Anemia, multifactorial, status post transfusion for symptomatic anemia. 4. Yeast in the urine. 5. Generalized weakness and tiredness. 6. Acute delirium. 7. Acute renal failure with acute tubular necrosis with prerenal factors. 8. Acute urinary tract infection with Citrobacter freundii as well as Enterobacter include Enterococcus faecium which is vancomycin sensitive, present on admission. 9. Chronic kidney disease, stage 3, baseline. 10.Acute gastritis. 11.Depression. 12.Atrial fibrillation, rate controlled. 13.Mild Coumadin coagulopathy, improved. 14.Coumadin monitoring. 15.Diarrhea, improved. 16.Sick euthyroid syndrome. 17.Hypokalemia. 18.Hyponatremia. 19.Acute metabolic acidosis. 20.Hypertension. 21.Diabetes mellitus type 2. 22.Hypothyroidism. 23.History of depression. 24.NO CODE, NO CPR, NO VENT. RECOMMENDATIONS AND DISCUSSION: I recommend to continue current medications, continue with monitoring and symptomatic treatment. Otherwise at this time, continue the antibiotics, add Diflucan to the current regimen. Continue to monitor. Also monitor sodium and potassium closely. Increase ambulation. Possible ECF rehab. Guarded prognosis because of multiple complex medical issues. Further recommendations to follow. Guarded prognosis. MMODL / IJN: [id number] /
[2020-07-13] MEDS ORDERED: FLUCONAZOLE 100 MG TAB PO ONE (23:14)
[2020-07-14 01:14] VITALS: RESP 15
[2020-07-14] MEDS ORDERED: ACETAMINOPHEN TAB 325 MG TAB ONE (04:20)
--- NOTE | 2020-07-14 04:29 | PN ---
PROGRESS NOTE DATE OF SERVICE: 07/13/2020 REASON FOR FOLLOWUP: Leukocytosis and urinary tract infection. INTERVAL HISTORY: The patient is currently afebrile. The patient is breathing comfortably, more awake and alert. Denies having any chest pain or shortness of breath or cough. No abdominal pain or diarrhea. PHYSICAL EXAMINATION: Blood pressure 108/65 with a pulse of 103, temperature 97.5. She is 94% on room air. General description is an elderly female lying in bed in no distress. RESPIRATORY SYSTEM: Unlabored breathing, clear to auscultation anteriorly. HEART: S1, S2. Regular rate and rhythm. ABDOMEN: Soft, no tenderness. LABS: Hemoglobin 8.3, white count up to 20,000. BUN of 64, creatinine is 2.7. DIAGNOSTIC IMPRESSION AND PLAN: 1. Patient with initial urinary tract infection infection with Citrobacter that has been adequately treated. 2. The patient now with worsening of the white count with urine showing the yeast possible affect of steroids plus minus yeast infection. Will give her a dose of Diflucan and see response. MMODL / IJN: [id number] /
[2020-07-14] MEDS: LEVOTHYROXINE 88 MCG TAB PO SCH (06:22)
[2020-07-14 06:42] LABS: Glucose,Whole Blood 147 mg/dL (75-99)
[2020-07-14 07:03] VITALS: BP 98/68; PULSE 77; TEMP 96.9
[2020-07-14 07:06] LABS: Anisocytosis Slight; HGB 7.9 gm/dL (11.4-16.0); Hypochromasia Marked; MCH 31.6 pg (25.0-35.0); MCHC 31.4 g/dL (31.0-37.0); MCV 100.6 fL (80.0-100.0); Macrocytosis Slight; Mean Platelet Volume 11.5; Platelet Count 125 k/uL (150-450); Poikilocytosis Slight; RBC 2.48 m/uL (3.80-5.40); RDW 16.6 % (11.5-15.5)
[2020-07-14] MEDS: SODIUM CHLORIDE 0.45% 1,000 ML IV SCH (07:23)
[2020-07-14] MEDS: HYDROCORTISONE SUCCINATE 100 MG/2 ML VIAL IV SCH (07:45)
[2020-07-14] MEDS: PANTOPRAZOLE 40 MG TABLET PO SCH (07:45)
[2020-07-14] MEDS: METOPROLOL TARTRATE 25 MG TAB PO SCH (07:47)
[2020-07-14] MEDS: BALSALAZIDE DISODIUM 750 MG CAPSULE PO SCH ×2 (07:47→12:12)
[2020-07-14] MEDS: MIDODRINE 5 MG TAB PO SCH ×2 (07:47→12:11)
[2020-07-14] MEDS: SENNOSIDES-DOCUSATE SODIUM 1 EACH TAB PO SCH (07:47)
[2020-07-14] MEDS: CHOLESTYRAMINE (WITH SUGAR) 4 GM PACKET PO SCH (07:47)
[2020-07-14] MEDS: INSULIN ASPART (NovoLOG) 100 UNIT/ML VIAL SQ SCH ×2 (07:48→12:12)
[2020-07-14] MEDS: ONDANSETRON 4 MG/2 ML VIAL IVP PRN (07:49)
[2020-07-14 08:03] LABS: Band Neutrophils % 2 %; Metamyelocytes % 2 %; Myelocytes % 1 %; Neutrophils % (M) 83 %; Nucleated Red Blood Cells 32 /100 WBC (0-0); Total Cells Counted 200
[2020-07-14 08:04] LABS: Lymphocytes # (M) 2.28 k/uL (1.0-4.8); Metamyelocytes # (M) 0.41 k/uL (0); Monocytes # (M) 0.41 k/uL (0-1.0); Myelocytes # (M) 0.21 k/uL (0); WBC 20.7 k/uL (3.8-10.6)
[2020-07-14 08:09] LABS: Polychromasia Present
[2020-07-14 09:54] LABS: INR 2.65 (0.90-1.11); Prothrombin Time 27.3 sec (9.9-11.9)
[2020-07-14 10:19] LABS: Anion Gap 13.4 mmol/L (4.00-12.00); C Reactive Protein 3.6 mg/dL (0.0-0.8); Calcium 8.3 mg/dL (8.7-10.3); Carbon Dioxide 18.6 mmol/L (21.6-31.8); Non-African American GFR(CKD) 17.2 (60.0-200.0); Potassium 3.6 mmol/L (3.5-5.5)
--- NOTE | 2020-07-14 11:21 | P.PN ---
Subjective patient is seen in follow-up for acute kidney injury and chronic kidney disease. Patient is chronic kidney disease stage III with baseline creatinine near 1.5. Renal function fairly stable. Urine output 300 mL overnight. She has a Peoples catheter. Remains a little confused. underwent left hip hemiarthroplasty on July 02. No changes overnight. Vital signs are stable. General: The patient appeared well nourished and normally developed. HEENT: Head exam is unremarkable. Neck is without jugular venous distension. LUNGS: Lungs are clear to auscultation and percussion. Breath sounds decreased. HEART: Rate and Rhythm are regular. ABDOMEN: soft, nontender. EXTREMITITES: 1+ edema. Objective - Vital Signs Vital signs: Vital Signs Temp 96.9 F L 07/14/20 07:00 Pulse 77 07/14/20 07:00 Resp 15 07/14/20 07:00 BP 98/68 07/14/20 07:00 Pulse Ox 94 L 07/14/20 07:00 Intake & Output 07/13/20 07/14/20 07/14/20 18:59 06:59 18:59 Output Total 400 300 Balance -400 -300 Weight 91 kg Output: Urine 400 300 Other: Voiding Method Indwelling Catheter Indwelling Catheter Indwelling Catheter # Bowel Movements 1 - Labs CBC & Chem 7: 07/14/20 05:44 07/14/20 05:44 Labs: Abnormal Lab Results - Last 24 Hours (Table) 07/13/20 07/13/20 07/13/20 Range/Units 05:36 05:36 11:58 WBC 20.3 H (3.8-10.6) k/uL RBC 2.61 L (3.80-5.40) m/uL Hgb 8.3 L (11.4-16.0) gm/dL Hct 26.6 L (34.0-46.0) % MCV 102.2 H (80.0-100.0) fL RDW 16.1 H (11.5-15.5) % Plt Count 113 L (150-450) k/uL Neutrophils # (Manual) 17.00 H (1.3-7.7) k/uL Metamyelocytes # (Man) 0.41 H (0) k/uL Myelocytes # (Manual) 0.41 H (0) k/uL Nucleated RBCs 17 H (0-0) /100 WBC PT (9.9-11.9) sec INR (0.90-1.11) Sodium 147 H (135-145) mmol/L Chloride 112 H (96-109) mmol/L Carbon Dioxide 19.3 L (21.6-31.8) mmol/L Anion Gap 15.70 H (4.00-12.00) mmol/L BUN 64.0 H (9.0-27.0) mg/dL Creatinine 2.7 H (0.6-1.5) mg/dL Est GFR (CKD-EPI)AfAm 19.1 L (60.0-200.0) Est GFR (CKD-EPI)NonAf 16.5 L (60.0-200.0) BUN/Creatinine Ratio 23.70 H (12.00-20.00) Ratio Glucose 118 H (70-110) mg/dL POC Glucose (mg/dL) 126 H (75-99) mg/dL Calcium (8.7-10.3) mg/dL C-Reactive Protein (0.0-0.8) mg/dL 07/13/20 07/13/20 07/14/20 Range/Units 16:59 20:22 05:44 WBC (3.8-10.6) k/uL RBC (3.80-5.40) m/uL Hgb (11.4-16.0) gm/dL Hct (34.0-46.0) % MCV (80.0-100.0) fL RDW (11.5-15.5) % Plt Count (150-450) k/uL Neutrophils # (Manual) (1.3-7.7) k/uL Metamyelocytes # (Man) (0) k/uL Myelocytes # (Manual) (0) k/uL Nucleated RBCs (0-0) /100 WBC PT 27.3 H (9.9-11.9) sec INR 2.65 H (0.90-1.11) Sodium (135-145) mmol/L Chloride (96-109) mmol/L Carbon Dioxide (21.6-31.8) mmol/L Anion Gap (4.00-12.00) mmol/L BUN (9.0-27.0) mg/dL Creatinine (0.6-1.5) mg/dL Est GFR (CKD-EPI)AfAm (60.0-200.0) Est GFR (CKD-EPI)NonAf (60.0-200.0) BUN/Creatinine Ratio (12.00-20.00) Ratio Glucose (70-110) mg/dL POC Glucose (mg/dL) 173 H 168 H (75-99) mg/dL Calcium (8.7-10.3) mg/dL C-Reactive Protein (0.0-0.8) mg/dL 07/14/20 07/14/20 07/14/20 Range/Units 05:44 05:44 06:41 WBC 20.7 H (3.8-10.6) k/uL RBC 2.48 L (3.80-5.40) m/uL Hgb 7.9 L (11.4-16.0) gm/dL Hct 25.0 L (34.0-46.0) % MCV 100.6 H (80.0-100.0) fL RDW 16.6 H (11.5-15.5) % Plt Count 125 L (150-450) k/uL Neutrophils # (Manual) 17.50 H (1.3-7.7) k/uL Metamyelocytes # (Man) 0.41 H (0) k/uL Myelocytes # (Manual) 0.21 H (0) k/uL Nucleated RBCs 32 H (0-0) /100 WBC PT (9.9-11.9) sec INR (0.90-1.11) Sodium (135-145) mmol/L Chloride 110 H (96-109) mmol/L Carbon Dioxide 18.6 L (21.6-31.8) mmol/L Anion Gap 13.40 H (4.00-12.00) mmol/L BUN 65.0 H (9.0-27.0) mg/dL Creatinine 2.6 H (0.6-1.5) mg/dL Est GFR (CKD-EPI)AfAm 20.0 L (60.0-200.0) Est GFR (CKD-EPI)NonAf 17.2 L (60.0-200.0) BUN/Creatinine Ratio 25.00 H (12.00-20.00) Ratio Glucose 121 H (70-110) mg/dL POC Glucose (mg/dL) 147 H (75-99) mg/dL Calcium 8.3 L (8.7-10.3) mg/dL C-Reactive Protein 3.6 H (0.0-0.8) mg/dL Microbiology - Last 24 Hours (Table) 07/11/20 19:40 Urine Culture - Final Urine,Catheterized Megan albicans 07/11/20 14:47 Blood Culture - Preliminary Blood No Growth after 48 hours Assessment and Plan Plan: assessment: 1. Acute kidney injury secondary to ATN secondary to infection and hypotension. Renal function stable. Creatinine 2.6 today. 2. Status post fall with acute left femur fracture. underwent left hip hemiarthroplasty July 02. 3. Chronic kidney disease stage III with baseline creatinine near 1.5. 4. A. fib with RVR status post Cardizem drip. 5. Metabolic acidosis secondary to acute kidney injury and GI losses. 6. UTI urine culture positive for Citrobacter and enterococcus s/p antibiotics. Infectious disease following. 7. Chronic diastolic CHF. 8. Hypokalemia from poor intake. Stable. 9. Hypernatremia secondary to lack of oral water intake. Better. Plan: Maintain half-normal saline at 75 mL an hour. Encourage oral intake, particularly protein. Continue to monitor renal function and urine output. Maintain midodrine. To be held if systolic blood pressure greater than 110. Strict I's and O's. Has a Peoples catheter. cortisol level high. Add oral sodium bicarbonate.
[2020-07-14] MEDS ORDERED: SODIUM BICARBONATE TAB 650 MG TAB PO SCH (11:30)
--- NOTE | 2020-07-14 11:53 | P.DS ---
Providers Date of admission: 06/27/20 21:39 Attending physician: Sury Collins Consults: 06/27/20 21:39 Consult Physician Routine Consulting Provider: Crystal Gilbert Consult Reason/Comments: medMgmnt Do you want consulting provider notified?: Yes 06/27/20 23:05 Consult Physician Routine Consulting Provider: Herb Jack Consult Reason/Comments: known Do you want consulting provider notified?: Yes Consult Physician Urgent Consulting Provider: Louisa Riggs Consult Reason/Comments: known Do you want consulting provider notified?: Yes 06/28/20 15:18 Consult Physician Routine Consulting Provider: Racquel Johnson Consult Reason/Comments: arf Do you want consulting provider notified?: Yes 06/28/20 15:22 Consult Physician Routine Consulting Provider: Khushi Sen Consult Reason/Comments: resistant uti Do you want consulting provider notified?: Yes Primary care physician: Johnny To Hospital Course: Final diagnosis status post fall and left hip hemiarthroplasty mental status acute metabolic encephalopathy multifactorial Anemia multifactorial status post transfusion for symptomatic anemia generalized weakness and tiredness acute renal failure with acute tubular necrosis with the prerenal factors acute UTI with assist Citrobacter freundii as well as Enterobacter PCR which is vancomycin sensitive Chronic kidney disease stage III baseline acute gastritis Depression Atrial fibrillation rate controlled Coumadin monitoring Diarrhea improved Sick euthyroid syndrome Hypokalemia Hyponatremia Acute metabolic acidosis Hypertension diabetes was type II Hypothyroidism Depression no code no CPR no event discharge disposition patient be discharged in a stable condition with guarded prognosis total time taken 35 minutes History of present illness This 74-year-old woman with a past medical history multiple was admitted with a fall and fracture patient had surgery. Patient had multiple complex medical issues. Patient treated in conjunction with the multiple consultants. Please refer to the problem multiple progress notes and consultation notes for details. The patient was treated symptomatically as mentioned earlier. Patient improved significantly. Patient be discharged in a stable condition with guarded prognosis to [facility] at this time. Chronic exam vitals stable. Cardio S1 and S2 normal. Abdomen soft nontender. No system no focal. Next Please refer to medication reconciliation sheet for list of Medications. Patient Condition at Discharge: Fair Plan - Discharge Summary Discharge Rx Participant: No New Discharge Prescriptions: New Escitalopram [Lexapro] 2.5 mg PO HS #10 tab Metoprolol Tartrate [Lopressor] 25 mg PO TID tab Magnesium Hydroxide [Milk of Magnesia Concentrate] 2,400 mg PO DAILY PRN ml PRN Reason: Constipation Midodrine [ProAmatine] 10 mg PO AC-TID tab Pantoprazole [Protonix] 40 mg PO AC-BID tablet. Cholestyramine (with Sugar) [Questran Packet] 4 gm PO TID BETWEEN MEALS packet Acetaminophen Tab [Tylenol] 650 mg PO Q6HR PRN tab PRN Reason: Fever And/ Or Pain Acetaminophen Tab [Tylenol] 500 mg PO Q6HR PRN tab PRN Reason: Fever And/ Or Pain Continue Mesalamine [Lialda] 1.2 gm PO BID Levothyroxine Sodium [Synthroid] 88 mcg PO DAILY allopurinoL [Zyloprim] 100 mg PO TID Fluticasone Nasal [place] [Flonase Nasal [place]] 2 spr EA NOSTRIL DAILY PRN PRN Reason: Allergy Symptoms Multivitamins, Thera [Multivitamin (formulary)] 1 tab PO HS Hydrocortisone [Cortef] 10 mg PO BID 30 Days #60 tab Folic Acid 1 mg PO DAILY@1200 tab Metoprolol Tartrate [Lopressor] 25 mg PO TID tab Pantoprazole [Protonix] 40 mg PO AC-BRKFST tablet. Thiamine [Vitamin B-1] 100 mg PO DAILY@1200 tab L.acidoph,Paracasei, B.lactis [Probiotic] 1 tab PO DAILY@1700 Diphenox-Atrop 2.5-0.025 mg [Lomotil] 2 tab PO TID-W/MEALS PRN #10 tab PRN Reason: Constipation Changed Warfarin [Coumadin] 1 mg PO DAILY@1700 #0 Discontinued Acetaminophen [Tylenol Extra Strength] 500 mg PO DAILY PRN PRN Reason: Pain Ferrous Sulfate [Iron (65 MG Elemental)] 325 mg PO HS Pregabalin [Lyrica] 200 mg PO BID #10 cap Doxycycline Hyclate 100 mg PO BID Discharge Medication List Levothyroxine Sodium [Synthroid] 88 mcg PO DAILY 04/08/14 [History] Mesalamine [Lialda] 1.2 gm PO BID 04/08/14 [History] allopurinoL [Zyloprim] 100 mg PO TID 08/01/18 [History] Fluticasone Nasal [place] [Flonase Nasal [place]] 2 spr EA NOSTRIL DAILY PRN 11/08/19 [History] Multivitamins, Thera [Multivitamin (formulary)] 1 tab PO HS 04/28/20 [History] Hydrocortisone [Cortef] 10 mg PO BID 30 Days #60 tab 05/05/20 [Rx] Folic Acid 1 mg PO DAILY@1200 tab 05/28/20 [Rx] Metoprolol Tartrate [Lopressor] 25 mg PO TID tab 05/28/20 [Rx] Pantoprazole [Protonix] 40 mg PO AC-BRKFST tablet. 05/28/20 [Rx] Thiamine [Vitamin B-1] 100 mg PO DAILY@1200 tab 05/28/20 [Rx] L.acidoph,Paracasei, B.lactis [Probiotic] 1 tab PO DAILY@1700 06/27/20 [History] Acetaminophen Tab [Tylenol] 500 mg PO Q6HR PRN tab 07/14/20 [Rx] Acetaminophen Tab [Tylenol] 650 mg PO Q6HR PRN tab 07/14/20 [Rx] Cholestyramine (with Sugar) [Questran Packet] 4 gm PO TID BETWEEN MEALS packet 07/14/20 [Rx] Diphenox-Atrop 2.5-0.025 mg [Lomotil] 2 tab PO TID-W/MEALS PRN #10 tab 07/14/20 [Rx] Escitalopram [Lexapro] 2.5 mg PO HS #10 tab 07/14/20 [Rx] Magnesium Hydroxide [Milk of Magnesia Concentrate] 2,400 mg PO DAILY PRN ml 07/14/20 [Rx] Metoprolol Tartrate [Lopressor] 25 mg PO TID tab 07/14/20 [Rx] Midodrine [ProAmatine] 10 mg PO AC-TID tab 07/14/20 [Rx] Pantoprazole [Protonix] 40 mg PO AC-BID tablet. 07/14/20 [Rx] Warfarin [Coumadin] 1 mg PO DAILY@1700 #0 07/14/20 [Rx] Follow up Appointment(s)/Referral(s): Johnny To MD [Primary Care Provider] - 1-2 days Crystal Gilbert DO [Doctor of Osteopathic Medicine] - 07/22/20 10:00 am [place], [NON-STAFF] - As Needed Activity/Diet/Wound Care/Special Instructions: Keep Optifoam dressing on for 10 days. May shower over Opifoam dressing PT - WBAT with walker and assistance Use pain medication as directed. Coumadin per internal medicine Follow up outpatient with Dr. Gilbert in 2 weeks-- call for appointment. Call [facility] with questions or concerns
[2020-07-14 11:58] LABS: Glucose,Whole Blood 131 mg/dL (75-99)
[2020-07-14] MEDS: ACETAMINOPHEN TAB 500 MG TAB PO PRN (12:09)
[2020-07-14] MEDS: FOLIC ACID 1 MG TAB PO SCH (12:11)
[2020-07-14] MEDS: THIAMINE 100 MG TAB PO SCH (12:11)
[2020-07-14 13:27] LABS: Hemoglobin A1C 6.1 % (4.0-6.0)
--- NOTE | 2020-07-14 15:12 | PN ---
PROGRESS NOTE DATE OF SERVICE: 07/14/2020 REASON FOR FOLLOWUP: 1. Leukocytosis possible steroid effect. 2. UTI adequately treated. INTERVAL HISTORY: The patient is currently afebrile. The patient is feeling better. Breathing comfortably. No chest pain. No cough. No abdominal pain. No diarrhea. Peoples catheter has been changed. PHYSICAL EXAMINATION: Blood pressure 98/60 with a pulse of 90, temperature 98, she is 94% on room air. General description is an elderly female, lying in bed in no distress. RESPIRATORY SYSTEM: Unlabored breathing, clear to auscultation anteriorly. HEART: S1, S2. Regular rate and rhythm. ABDOMEN: Soft, no tenderness. LABS: Hemoglobin is 10, white count 20.7, BUN of 35, creatinine is 2.6. DIAGNOSTIC IMPRESSION: Patient with elevated white count which is multifactorial, likely steroid effect. Possible component of urinary tract infection with urine showing Megan albicans, though white count did not respond to Diflucan which was given yesterday. We will change her Peoples catheter and recommend no antibiotic on discharge and the patient is on Lexapro that will currently can use of oral fluconazole. All her questions and concern were answered. is on questions consult also negative addition. MMODL / IJN: [id number] /
[2020-07-14] MEDS ORDERED: WARFARIN 1.5 MG TAB PO ONE (18:00)
== END 2020-07-14 15:36 | DRG 521 ==
LOC: EC 21:21 → 4SSUR 21:39 → 3SCARD 06-28 13:48 → 4SSUR 07-01 18:26
PROVIDERS: ADMIT Hospitalist; ATTEND Hospitalist
PROC: 0SRS039 Replacement of Left Hip Joint, Femoral Surface with Ceramic Synthetic Substitute, Cemented, Open Approach (ICD-10-PCS; principal; 2020-07-02 14:30)
PROC: 30233N1 Transfusion of Nonautologous Red Blood Cells into Peripheral Vein, Percutaneous Approach (ICD-10-PCS; 2020-07-09)
DX: S72.012A Unspecified intracapsular fracture of left femur, initial encounter for closed fracture (principal); A41.81 Sepsis due to Enterococcus; G92 Toxic encephalopathy; N17.0 Acute kidney failure with tubular necrosis; A41.59 Other Gram-negative sepsis; R65.20 Severe sepsis without septic shock; T83.511A Infection and inflammatory reaction due to indwelling urethral catheter, initial encounter; E27.40 Unspecified adrenocortical insufficiency; E87.0 Hyperosmolality and hypernatremia; E87.1 Hypo-osmolality and hyponatremia; E87.2 Acidosis; I13.0 Hypertensive heart and chronic kidney disease with heart failure and stage 1 through stage 4 chronic kidney disease, or unspecified chronic kidney disease; I48.19 Other persistent atrial fibrillation; I50.32 Chronic diastolic (congestive) heart failure; K50.90 Crohn's disease, unspecified, without complications; Z16.21 Resistance to vancomycin; N39.0 Urinary tract infection, site not specified; D63.1 Anemia in chronic kidney disease; M06.9 Rheumatoid arthritis, unspecified; G14 Postpolio syndrome; Z20.828 Contact with and (suspected) exposure to other viral communicable diseases; E11.22 Type 2 diabetes mellitus with diabetic chronic kidney disease; Z66 Do not resuscitate; E11.65 Type 2 diabetes mellitus with hyperglycemia; N18.30 Chronic kidney disease, stage 3 unspecified; I95.9 Hypotension, unspecified; T50.2X5A Adverse effect of carbonic-anhydrase inhibitors, benzothiadiazides and other diuretics, initial encounter; R79.1 Abnormal coagulation profile; E03.9 Hypothyroidism, unspecified; E07.81 Sick-euthyroid syndrome; E83.42 Hypomagnesemia; E87.6 Hypokalemia; F32.9 Major depressive disorder, single episode, unspecified; G47.33 Obstructive sleep apnea (adult) (pediatric); T42.6X5A Adverse effect of other antiepileptic and sedative-hypnotic drugs, initial encounter; J45.20 Mild intermittent asthma, uncomplicated; K29.00 Acute gastritis without bleeding; M19.90 Unspecified osteoarthritis, unspecified site; H91.90 Unspecified hearing loss, unspecified ear; H54.7 Unspecified visual loss; E66.9 Obesity, unspecified; Z68.31 Body mass index [BMI] 31.0-31.9, adult; M79.7 Fibromyalgia; Z79.01 Long term (current) use of anticoagulants; Z79.890 Hormone replacement therapy; Z79.899 Other long term (current) drug therapy; Z88.1 Allergy status to other antibiotic agents; Z88.5 Allergy status to narcotic agent; Z88.2 Allergy status to sulfonamides; Z87.440 Personal history of urinary (tract) infections; Z96.652 Presence of left artificial knee joint; Z90.710 Acquired absence of both cervix and uterus; Z90.49 Acquired absence of other specified parts of digestive tract; Z87.81 Personal history of (healed) traumatic fracture; Z98.890 Other specified postprocedural states; Z87.19 Personal history of other diseases of the digestive system; Z98.51 Tubal ligation status; Z82.49 Family history of ischemic heart disease and other diseases of the circulatory system; Z83.3 Family history of diabetes mellitus; W01.0XXA Fall on same level from slipping, tripping and stumbling without subsequent striking against object, initial encounter; Y92.009 Unspecified place in unspecified non-institutional (private) residence as the place of occurrence of the external cause; Y84.6 Urinary catheterization as the cause of abnormal reaction of the patient, or of later complication, without mention of misadventure at the time of the procedure
CPT/HCPCS: 70450; 71045; 71250; 73501; 73502; 74176; 80048; 80051; 80053; 81001; 82533; 82550; 83036; 83605; 83735; 83880; 84100; 84132; 84439; 84443; 84481; 84484; 85025; 85610; 85730; 86140; 86850; 86900; 86901; 86920; 87040; 87077; 87086; 87186; 87324; 87635; 88305; 88311; 93005; 94760; 96361; 96365; 96366; 96375; 96376; 99285